=== PATIENT | male | born 1950 | race African-American/Black ===

== ENCOUNTER 2021-07-11 09:51 | Emergency (ER) | payer OTHER ==
--- NOTE | 2021-07-11 10:14 | EDPHYS ---
Physician Documentation [facility] Name: Willi Boudreaux Age: 70 yrs Sex: Male : 1950 Arrival Date: 07/11/2021 Time: 09:55 Bed 12 Private MD: ED Physician Jacobo Taveras HPI: 07/11 10:08 This 70 yrs old Black Male presents to ER via Ambulatory with complaints of swelling. rn 10:08 the patient presents with a swollen area of the scalp. Description: The affected area rn is small, localized, swollen. Onset: The symptoms/episode began/occurred 2.5 month(s) ago. Possible cause(s): unknown. Associated signs and symptoms: Pertinent positives: swelling, Pertinent negatives: discharge, drainage, erythema, fever. Modifying factors: the symptoms are alleviated by nothing, the symptoms are aggravated by touching. Severity of symptoms: At their worst the symptoms were mild, in the emergency department the symptoms are unchanged. The patient has experienced similar episodes in the past. The patient has not recently seen a physician. Patient reports small area of swelling to posterior scalp near neckline. Denies fever. States he first noticed it 2.5 months ago, not significantly growing, not really tender or warm. Has not noticed any drainage. Denies injury. Not getting better so came in because did not know where to go.. Historical: - Allergies: 10:00 No Known Allergies; ll1 - PMHx: 10:00 Diabetes mellitus; lung disease; heart attack ans stroke; ll1 - PSHx: 10:00 lumbar laminectomy, cervicle spine fusion; ll1 - Immunization history:: Client reports receiving the 2nd dose of the Covid vaccine. - Social history:: Smoking status: Patient denies any tobacco usage or history of. - Family history:: not pertinent. - Hospitalizations: : No recent hospitalization is reported. ROS: 10:08 Constitutional: Negative for fever, chills, and weight loss, Skin: Small area of rn swelling posterior scalp Neuro: Negative for headache, weakness, numbness, tingling, and seizure. Exam: 10:08 Constitutional: This is a well developed, well nourished patient who is awake, alert, rn and in no acute distress. Head/Face: Normocephalic, atraumatic. Posterior scalp, midline, there is a subcentimeter palpable mass that feels solid/cystic, mobile, nontender, no erythema, no warmth, without any superficial skin changes. Vital Signs: 09:59 BP 151 / 94; Pulse 81; Resp 18; Temp 97.2; Pulse Ox 90% ; Weight 103.87 kg; Height 5 ll1 ft. 11 in. (180.34 cm); Pain 9/10; 09:59 Body Mass Index 31.94 (103.87 kg, 180.34 cm) ll1 MDM: 09:59 Patient medically screened. rn 10:08 Differential diagnosis: Lymph node, cyst. Data reviewed: vital signs, nurses notes, and rn as a result, I will discharge patient. Counseling: I had a detailed discussion with the patient and/or guardian regarding: the historical points, exam findings, and any diagnostic results supporting the discharge/admit diagnosis, the need for outpatient follow up, to return to the emergency department if symptoms worsen or persist or if there are any questions or concerns that arise at home. Special discussion: I discussed with the patient/guardian in detail that at this point there is no indication for admission to the hospital. It is understood, however, that if the symptoms persist or worsen the patient needs to return immediately for re-evaluation. Based on the history and exam findings, there is no indication for further emergent testing or inpatient evaluation. I discussed with the patient/guardian the need to see the general surgeon for further evaluation of the symptoms. ED course: No indication that this is infectious or abscess. No indication for emergency incision and drainage or imaging. Swelling has been there for 2.5 months, afebrile, nontender. Will direct patient to Dr. Houser for evaluation and possible outpt excision.. Administered Medications: No medications were administered Disposition Summary: 07/11/21 10:13 Discharge Ordered Location: Home rn Problem: an ongoing problem rn Symptoms: are unchanged rn Condition: Stable rn Diagnosis - Localized swelling, mass and lump, head rn Followup: rn - With: Miles Houser MD - When: As needed - Reason: Recheck today's complaints, Re-evaluation by your physician Forms: - Medication Reconciliation Form rn - Thank You Letter rn - Antibiotic patternator - Prescription Opioid Use rn Signatures: Jacobo Taveras MD MD rn Lewis, Lynsay, RN RN ll1
--- NOTE | 2021-07-11 10:14 | ER ---
Nurse's Notes [facility] Name: Willi Bouderaux Age: 70 yrs Sex: Male : 1950 Arrival Date: 07/11/2021 Time: 09:55 Bed 12 Private MD: Diagnosis: Localized swelling, mass and lump, head Presentation: 07/11 09:59 Chief complaint: Patient states: Lump to back of head for 2 months, slowly getting ll1 bigger. No fever or drainage. Coronavirus screen: Vaccine status: Patient reports receiving the 2nd dose of the covid vaccine. Client denies travel out of the [place] in the last 14 days. At this time, the client does not indicate any symptoms associated with coronavirus-19. Ebola Screen: Patient denies travel to an Ebola-affected area in the 21 days before illness onset. Initial Sepsis Screen: Does the patient meet any 2 criteria? No. Patient's initial sepsis screen is negative. Does the patient have a suspected source of infection? Yes: Skin breakdown/wound. Risk Assessment: Do you want to hurt yourself or someone else? Patient reports no desire to harm self or others. Onset of symptoms was May 11, 2021. 09:59 Method Of Arrival: Ambulatory ll1 09:59 Acuity: DAI 4 ll1 Historical: - Allergies: 10:00 No Known Allergies; ll1 - PMHx: 10:00 Diabetes mellitus; lung disease; heart attack ans stroke; ll1 - PSHx: 10:00 lumbar laminectomy, cervicle spine fusion; ll1 - Immunization history:: Client reports receiving the 2nd dose of the Covid vaccine. - Social history:: Smoking status: Patient denies any tobacco usage or history of. - Family history:: not pertinent. - Hospitalizations: : No recent hospitalization is reported. Screenin:14 Abuse screen: Denies threats or abuse. Nutritional screening: No deficits noted. vg1 Tuberculosis screening: No symptoms or risk factors identified. Fall Risk None identified. Assessment: 10:08 General: Appears in no apparent distress. comfortable, Behavior is calm, cooperative. vg1 Pain: Complains of pain in base of the skull Pain currently is 8 out of 10 on a pain scale. Quality of pain is described as aching, Pain began approximately two months ago. Neuro: Level of Consciousness is awake, alert, obeys commands, Oriented to person, place, time, situation. Cardiovascular: Patient's skin is warm and dry. Respiratory: Airway is patent Respiratory effort is even, unlabored. GI: No signs and/or symptoms were reported involving the gastrointestinal system. : No signs and/or symptoms were reported regarding the genitourinary system. EENT: No signs and/or symptoms were reported regarding the EENT system. Derm: Skin is intact, is healthy with good turgor, at base of skull, pt appears to have a hard like substance that is movable. Abscess located on scalp is dime sized. Musculoskeletal: Circulation, motion, and sensation intact. Vital Signs: 09:59 BP 151 / 94; Pulse 81; Resp 18; Temp 97.2; Pulse Ox 90% ; Weight 103.87 kg; Height 5 ll1 ft. 11 in. (180.34 cm); Pain 9/10; 09:59 Body Mass Index 31.94 (103.87 kg, 180.34 cm) ll1 ED Course: 09:55 Patient arrived in ED. as 09:59 Jacobo Taveras MD is Attending Physician. rn 10:00 Triage completed. ll1 10:02 Arm band placed on Patient placed in an exam room, on a stretcher. ll1 10:08 Desiree Mays RN is Primary Nurse. vg1 10:13 Miles Houser MD is Referral Physician. rn 10:14 Patient has correct armband on for positive identification. Bed in low position. Call vg1 light in reach. 10:14 No provider procedures requiring assistance completed. Patient did not have IV access vg1 during this emergency room visit. Administered Medications: No medications were administered Outcome: 10:13 Discharge ordered by . rn 10:14 Discharged to home ambulatory. vg1 10:14 Condition: stable 10:14 Discharge instructions given to patient, Instructed on discharge instructions, follow up and referral plans. Demonstrated understanding of instructions, follow-up care. 10:18 Patient left the ED. vg1 Signatures: Lida Harper as Jacboo Taveras MD MD rn Garcia, Victoria, RN RN vg1 Rosangela Lara RN RN ll1 Corrections: (The following items were deleted from the chart) 10:04 09:59 Acuity: DAI 3 ll1 ll1
[2021-07-11 10:25] VITALS: BP 151/94; TEMP 97.2; O2SAT 90
== END 2021-07-11 10:18 | disposition home or self-care (01) ==
LOC: ER 09:51
DX: R22.0 Localized swelling, mass and lump, head (principal)
CPT/HCPCS: 99281

== ENCOUNTER 2021-11-03 14:56 | Inpatient (IN) | payer OTHER ==
--- OUTSIDE RECORDS SUMMARY | 2021-11-03 14:59 | XMS REPORT | Continuity of Care Document ---
:1950 Author Organization [facility] t Address [address] [place] [address] Care Team Providers Name Role Phone Thiago Layton Attending Clinician Unavailable Anthony Rausch Attending Clinician Unavailable Anthony Rausch Admitting Clinician Unavailable Payers Payer Name Policy Type Policy Number Effective Date Expiration Date S ource Problems This patient has no known problems. Allergies, Adverse Reactions, Alerts Allergy Allergy Status Severity Reaction(s) Onset Inactive Treating Comm ents Source Name Type Date Date Clinician No Known DA Active U [facility] Allergie 10-30 [facility] s 00:00: d 00 [facility] Medications This patient has no known medications. Procedures This patient has no known procedures. Encounters Start End Encounter Admission Attending Care Care Encounter Source Date/Time Date/Time Type Type Clinicians Facility Department ID 2021-10-31 2021-11-01 Inpatient EM JANETH LaytonDENNIS TELE [id number] [facility] 16:03:00 10:24:00 Lisa [facility] 2021-10-30 2021-10-30 Inpatient EM JANETH RauschDENNIS TELE [id number] [facility] 16:12:00 16:11:00 Juma [facility] Results Test Description Test Time Test Comments Results Result Comments Source GLUBED 2021-11-01 14:18:00 Test Item Value Reference Range Interpretation Comme nts GLUBED (test code = GLUBED) 167 mg/dL 70-110 H [id number] 14:17:00 Test Item Value Reference Range Interpretation Comments GLUBED (test code = GLUBED) 117 mg/dL 70-110 H [id number] 07:34:00 Test Item Value Reference Range Interpretation Comments GLUBED (test code = GLUBED) 215 mg/dL 70-110 H CBC W/AUTO [id number] 06:26:00 Test Item Value Reference Range Interpretation Comments WHITE BLOOD CELL (test code = 6.8 K/mm3 4.5-11.0 N WBC) RED BLOOD CELL (test code = 4.61 M/mm3 4.40-5.90 N RBC) HEMOGLOBIN (test code = HGB) 13.1 gm/dL 13.0-17.0 N HEMATOCRIT (test code = HCT) 44.7 % 36.0-48.0 N MEAN CELL VOLUME (test code = 97.0 UM3 80.0-94.0 H MCV) MEAN CELL HGB (test code = MCH) 28.4 UUG 25.5-32.5 N MEAN CELL HGB CONCETRATION 29.3 gm/dL 29.0-35.5 N (test code = MCHC) RED CELL DISTRIBUTION WIDTH 15.7 % 11.5-15.0 H (test code = RDW) RED CELL DISTRIBUTION WIDTH SD 56.0 fL 34.8-50.2 H (test code = RDW-SD) PLATELET COUNT (test code = 172 K/mm3 150-400 N PLT) MEAN PLATELET VOLUME (test code 11.8 fl 7.4-10.4 H = MPV) NEUTROPHIL % (test code = NT%) 74.3 % 49.0-76.0 N IMMATURE GRANULOCYTE % (test 0.3 % 0.0-0.4 N code = IG%) LYMPHOCYTE % (test code = LY%) 14.6 % 23.0-38.0 L MONOCYTE % (test code = MO%) 9.3 % 1.0-10.0 N EOSINOPHIL % (test code = EO%) 1.2 % 1.0-5.0 N BASOPHIL % (test code = BA%) 0.3 % 0.0-1.0 N NUCLEATED RBC % (test code = 0.0 % 0.0-0.1 N NRBC%) NEUTROPHIL # (test code = NT#) 5.0 K/mm3 2.4-6.3 N IMMATURE GRANULOCYTE # (test 0.02 x10 3/uL 0.00-0.07 N code = IG#) LYMPHOCYTE # (test code = LY#) 1.0 K/mm3 1.2-4.0 L MONOCYTE # (test code = MO#) 0.6 K/mm3 0.0-0.6 N EOSINOPHIL # (test code = EO#) 0.1 K/MM3 0.0-0.7 N BASOPHIL # (test code = BA#) 0.0 K/mm3 0.0-0.2 N NUCLEATED RBC # (test code = 0.00 X10 3uL 0.00-0.01 N NRBC#) BASIC METABOLIC [id number] 06:17:00 Test Item Value Reference Range Interpretation Comments SODIUM (test code = NA) 142 mmol/l 134.0-147.0 N POTASSIUM (test code = K) 4.2 mmol/L 3.6-5.2 N CHLORIDE (test code = CL) 104 mmol/l 98.0-107.0 N CARBON DIOXIDE (test code = CO2) 32.9 mmol/l 21.0-33.0 N ANION GAP (test code = GAP) 9.3 0-20 N GLUCOSE (test code = GLU) 174 mg/dl 70.0-110.0 H BLOOD UREA NITROGEN (test code = 12 mg/dl 7.0-18.0 N BUN) CREATININE (test code = CREAT) 1.24 mg/dL 0.60-1.30 N GFR NON BLACK (test code = 61 mL/min 80-90 L GFRNONBLACK) GFR BLACK (test code = GFRBLACK) 74 mL/min 97-109 L CALCIUM (test code = CA) 8.6 mg/dl 8.0-10.5 N [id number] 07:26:00 Test Item Value Reference Range Interpretation Comments TROPONIN-I (test 0.63 NG/ML 0.00-0.06 HH REFERENCE R XAVIER TROPONIN code = TROPI) I HEALTHY PERNELL VIDUALS: <0.06 ng/mL R/O ISCHEMIA: 0.07 - 0.60 ng/mL CUT-OFF R XAVIER FOR AMI: 0.60 - 1. 5 ng/mL [id number] 06:10:00 Test Item Value Reference Range Interpretation Comments GLUBED (test code = GLUBED) 115 mg/dL 70-110 H [id number] 04:17:00 Test Item Value Reference Range Interpretation Comments TROPONIN-I (test 0.59 NG/ML 0.00-0.06 HH REFERENCE R XAVIER TROPONIN code = TROPI) I HEALTHY PERNELL VIDUALS: <0.06 ng/mL R/O ISCHEMIA: 0.07 - 0.60 ng/mL CUT-OFF R XAVIER FOR AMI: 0.60 - 1. 5 ng/mL [id number] 22:52:00 Test Item Value Reference Range Interpretation Comments TROPONIN-I (test 0.43 NG/ML 0.00-0.06 H REFERENCE R XAVIER TROPONIN code = TROPI) I HEALTHY PERNELL VIDUALS: <0.06 ng/mL R/O ISCHEMIA: 0.07 - 0.60 ng/mL CUT-OFF R XAVIER FOR AMI: 0.60 - 1. 5 ng/mL B-TYPE NATRIURETIC [id number] 17:55:00 Test Item Value Reference Range Interpretation Comments B-TYPE NATRIURETIC PEPTIDE (test 670 PG/ML 5-100 H code = BNP) [id number] 17:55:00 Test Item Value Reference Range Interpretation Comments TROPONIN-I (test 0.04 NG/ML 0.00-0.06 N REFERENCE R XAVIER TROPONIN code = TROPI) I HEALTHY PERNELL VIDUALS: <0.06 ng/mL R/O ISCHEMIA: 0.07 - 0.60 ng/mL CUT-OFF R XAVIER FOR AMI: 0.60 - 1. 5 ng/mL BASIC METABOLIC [id number] 17:55:00 Test Item Value Reference Range Interpretation Comments SODIUM (test code = NA) 142 mmol/l 134.0-147.0 N POTASSIUM (test code = K) 3.4 mmol/L 3.6-5.2 L CHLORIDE (test code = CL) 105 mmol/l 98.0-107.0 N CARBON DIOXIDE (test code = CO2) 29.9 mmol/l 21.0-33.0 N ANION GAP (test code = GAP) 10.5 0-20 N GLUCOSE (test code = GLU) 134 mg/dl 70.0-110.0 H BLOOD UREA NITROGEN (test code = 6 mg/dl 7.0-18.0 L BUN) CREATININE (test code = CREAT) 1.03 mg/dL 0.60-1.30 N GFR NON BLACK (test code = 76 mL/min 80-90 L GFRNONBLACK) GFR BLACK (test code = GFRBLACK) 92 mL/min 97-109 L CALCIUM (test code = CA) 8.5 mg/dl 8.0-10.5 N [id number] 17:52:00 Test Item Value Reference Range Interpretation Comments GLUBED (test code = GLUBED) 117 mg/dL 70-110 H COVID 19 Asymptomatic IH [id number] 17:49:00 Test Item Value Reference Range Interpretation Comments COVID 19 NEGATIVE NEGATIVE Negative result s should be Asymptomatic IH AG treated a s presumptive and (test code = ifinconsistent with COVNONPUIAG) clinical signs and symptoms, or ne cessaryfor patient managem ent, should be tested with an alternativemole cular assay. Negative results do not preclude [id number] tion and should not be u sed as the sole basis forp atient management deci sions. Negative result s should beconsidered in the context of a pa tient's recent exposure s,history, presence of cli nical signs and symptoms consistentwith COVID-19. PROTHROMBIN [id number] 17:20:00 Test Item Value Reference Range Interpretation Comments PROTHROMBIN TIME 15.1 SECONDS 9.9-12.8 H PATIENT (test code = PTP) INTERNATIONAL NORMAL 1.3 0.89-1.14 H THE INR IS TO BE USED RATIO (test code = ONLY FOR MONITORING INR) ORAL ANTICOAGULANTTH ERAPY. THE FOLLOWING A RE SUGGESTED RANGE S FROM [facility] COL LEGE OF CHEST PHYSICIANS:PERNELL CATION INR VALUEPROPHYLAXI S OF VENOUS THROMBOS IS (ORTHOPEDIC LEYLA MAIN) 2.0 - 3.0PROP HYLAXIS OF VENOUS THROM BOSIS (OTHER THAN HIG H-RISK SURGERY) 2.0 - 3.0TRE ATMENT OF DEEP VEIN THROMBOSIS OR PULMONARY EMBOL ISM 2.0 - 3.0PREV ENTION OF SYSTEMIC EMB OLISM TISSUE HEART VA LVES 2.0 - 3.0 AC [place] MYOCARDIAL INFA RCTION (TO PREVENT SYSTEMIC EMBOLI SM) 2.0 - 3.0 ACUTE MYOCARDIA L INFARCTION (TO PREVENT RECURRE NT INFARCT) 2.5 - 3.0 VALV ULAR HEART DISEASE 2.0 - 3.0 ATRIAL FIBRILATION 2.0 - 3.0BILEAFLET MECHANICAL VALV E IN AORTIC POSITION 2.0 - 3.0MECHAN ICAL PROSTHETIC VALV ES (HIGH RISK) 2.5 - 3.5PRESEN CE OF LUPUS ANTICOAGU LANT OR ANTIPHOSPHOLIP ID ANTIBODIES 2.5 - 3 .5 Specimen comments: .CBC W/AUTO [id number] 17:09:00 Test Item Value Reference Range Interpretation Comments WHITE BLOOD CELL (test code = 7.7 K/mm3 4.5-11.0 N WBC) RED BLOOD CELL (test code = 4.63 M/mm3 4.40-5.90 N RBC) HEMOGLOBIN (test code = HGB) 12.9 gm/dL 13.0-17.0 L HEMATOCRIT (test code = HCT) 43.4 % 36.0-48.0 N MEAN CELL VOLUME (test code = 93.7 UM3 80.0-94.0 N MCV) MEAN CELL HGB (test code = MCH) 27.9 UUG 25.5-32.5 N MEAN CELL HGB CONCETRATION 29.7 gm/dL 29.0-35.5 N (test code = MCHC) RED CELL DISTRIBUTION WIDTH 15.4 % 11.5-15.0 H (test code = RDW) RED CELL DISTRIBUTION WIDTH SD 53.1 fL 34.8-50.2 H (test code = RDW-SD) PLATELET COUNT (test code = 162 K/mm3 150-400 N PLT) MEAN PLATELET VOLUME (test code 10.7 fl 7.4-10.4 H = MPV) NEUTROPHIL % (test code = NT%) 79.5 % 49.0-76.0 H IMMATURE GRANULOCYTE % (test 0.3 % 0.0-0.4 N code = IG%) LYMPHOCYTE % (test code = LY%) 11.7 % 23.0-38.0 L MONOCYTE % (test code = MO%) 7.2 % 1.0-10.0 N EOSINOPHIL % (test code = EO%) 1.0 % 1.0-5.0 N BASOPHIL % (test code = BA%) 0.3 % 0.0-1.0 N NUCLEATED RBC % (test code = 0.0 % 0.0-0.1 N NRBC%) NEUTROPHIL # (test code = NT#) 6.1 K/mm3 2.4-6.3 N IMMATURE GRANULOCYTE # (test 0.02 x10 3/uL 0.00-0.07 N code = IG#) LYMPHOCYTE # (test code = LY#) 0.9 K/mm3 1.2-4.0 L MONOCYTE # (test code = MO#) 0.6 K/mm3 0.0-0.6 N EOSINOPHIL # (test code = EO#) 0.1 K/MM3 0.0-0.7 N BASOPHIL # (test code = BA#) 0.0 K/mm3 0.0-0.2 N NUCLEATED RBC # (test code = 0.00 X10 3uL 0.00-0.01 N NRBC#) - XR CHEST 1 [id number] 16:43:00 [facility] 1950 Sex: M FAX: Shara Jackman MD [phone] [place]: St: PRE Name: ELLE MERRITT [facility] : 1950 Age[facility]S: 71/[facility] [address] [facility]: [id number] Loc: [place], [place]: [place] [id number] Acct: [id number] Dis Date: Status: PRE ER PHONE #: [phone] Exam Date: 10/30/20211641 FAX #: [phone] Reason: SOB EXAMS: CPT CODE: [id number] XR CHEST 1 V 82025 EXAMINATION: - XR CHEST 1 V. LOCATION:B2. HISTORY: SOB. COMPARISON: None. TECHNIQUE: Single AP view of the chest was obtained. FINDINGS: The heart is enlarged in size. Left AICD device is present. There is mild prominence of the central pulmonary vasculature. No acute osseous abnormality is identified. IMPRESSION: Cardiomegaly with mild central pulmonary congestion. [id number] Reported and signed by: Rupal Gunter M.D. CC: Shara Jackman MD Technologist: JJ GIRALDO Trnscrd Date/Time/By: 10/30/2021 (700) : By: [email or web address] PAGE 1 Sig rosaline Report FAX: Shara Jackman MD [phone] [place]: St: PRE -- Name: ELLE MERRITT [facility] : 1950 Age/S: 71/M [address] [facility] Unit #: [id number] [place]: [place] [id number] Acct: [id number] Dis Date: Status: PRE ER PHONE #: [phone] Date: 10/30/20211641 FAX #: [phone] Reason: SOB EXAMS: CPT CODE: [id number] XR CHEST 1 V [id number] <Continued> Orig Print D/T: S: 10/30/2021 (2566) PAGE 2 Signed Report
[2021-11-03 16:03] LABS: Hematocrit 42.3 % (39.6-49.0); MPV 9.5 fL (7.6-11.3); RBC Red Blood Cell Count 4.71 M/uL (4.33-5.43)
[2021-11-03 16:07] LABS: Protime INR 1.26
[2021-11-03 16:20] LABS: Albumin 3.4 g/dL (3.4-5.0); Bilirubin Direct 0.2 mg/dL (0-0.2); Bilirubin Total 0.4 mg/dL (0.2-1.0); Magnesium 2.3 mg/dL (1.8-2.4); Potassium 3.8 mmol/L (3.5-5.1); Protein, Total 7.7 g/dL (6.4-8.2)
--- NOTE | 2021-11-03 16:23 | RAD REPORT ---
EXAM DESCRIPTION: RAD - Chest Single View - 11/03/2021 4:00 pm CLINICAL HISTORY: CHEST PAIN COMPARISON: None TECHNIQUE: AP portable chest image was obtained 11/03/2021 4:00 pm . FINDINGS: No peripheral mass consolidation. Pacemaker/defibrillator is in place. Trachea is midline. Heart size is prominent. Central vasculature and lung markings are also prominent. No measurable ple ural effusion and no pneumothorax. No acute bony abnormality seen. No acute aortic findings suspected . IMPRESSION: Baseline study showing prominent heart, vasculature and lung markings. Absent any comparison that can establish stability, chest findings suggest failure or volume overload .
--- NOTE | 2021-11-03 19:17 | ER ---
Nurse's Notes [facility] Name: Willi Boudreaux Age: 71 yrs Sex: Male : 1950 Arrival Date: 11/03/2021 Time: 15:04 Bed 16 Private MD: Diagnosis: Chest pain, unspecified Presentation: 11/03 14:54 Chief complaint: EMS states: at about 1400 pt toned out for chest pain; stated had a NE vg1 last week and was discharged from [facility] on . Pt was given Aspirin 81 mg PO x4 and one tab of Nitroglycerin PO x1. Before medication admin pt chest pain was 8/10, after medication admin pt stated pain 0/10. 14:54 Coronavirus screen: Vaccine status: Patient reports receiving the 2nd dose of the covid vg1 vaccine. Client denies travel out of the [place] in the last 14 days. Ebola Screen: Patient negative for fever greater than or equal to 101.5 degrees Fahrenheit, and additional compatible Ebola Virus Disease symptoms. Initial Sepsis Screen: Does the patient meet any 2 criteria? HR > 90 bpm. Does the patient have a suspected source of infection? No. Patient's initial sepsis screen is negative. Risk Assessment: Do you want to hurt yourself or someone else? Patient reports no desire to harm self or others. Onset of symptoms was November 03, 2021. 14:54 Method Of Arrival: EMS: [facility] vg1 14:54 Acuity: DAI 2 vg1 Triage Assessment: 15:00 General: Appears in no apparent distress. comfortable, Behavior is calm, cooperative. vg1 Pain: Denies pain. Complains of pain in chest Pain does not radiate. Pain currently is 0 out of 10 on a pain scale. EENT: No signs and/or symptoms were reported regarding the EENT system. Neuro: Level of Consciousness is awake, alert, obeys commands, Oriented to person, place, time, situation. Cardiovascular: Patient's skin is warm and dry. Rhythm is Chest pain is denied. Respiratory: Airway is patent Respiratory effort is even, unlabored, Respiratory pattern is tachypnea. GI: Patient currently denies nausea, vomiting. : No signs and/or symptoms were reported regarding the genitourinary system. Derm: Skin is intact, is healthy with good turgor. Musculoskeletal: Circulation, motion, and sensation intact. Historical: - Allergies: 15:48 No Known Allergies; vg1 - Home Meds: 15:48 atorvastatin oral [Active]; vg1 17:26 bisoprolol fumarate oral [Active]; glipizide 5 mg Oral tab [Active]; metformin Oral vg1 [Active]; Humulin N Sub-Q [Active]; Lasix Oral [Active]; terazosin oral [Active]; - PMHx: 15:48 diabetes mellitus; vg1 17:26 Myocardial infarction; Hypertensive disorder; vg1 - PSHx: 15:48 lumbar laminectomy, cervicle spine fusion; Pacemaker; vg1 - Immunization history:: Client reports receiving the 2nd dose of the Covid vaccine. - Social history:: Smoking status: Patient reports the use of cigarette tobacco products, cigars. Screenin:51 Abuse screen: Denies threats or abuse. Nutritional screening: No deficits noted. vg1 Tuberculosis screening: No symptoms or risk factors identified. Fall Risk No fall in past 12 months (0 pts). No secondary diagnosis (0 pts). IV access (20 points). Ambulatory Aid- None/Bed Rest/Nurse Assist (0 pts). Gait- Normal/Bed Rest/Wheelchair (0 pts) Mental Status- Oriented to own ability (0 pts). Total Chambers Fall Scale indicates No Risk (0-24 pts). Assessment: 15:00 Reassessment: SEE TRIAGE. vg1 15:00 Pain: Pain began 2 hours ago. vg1 16:58 Reassessment: Patient appears in no apparent distress at this time. No changes from vg1 previously documented assessment. Patient and/or family updated on plan of care and expected duration. Pain level reassessed. Patient is alert, oriented x 3, equal unlabored respirations, skin warm/dry/pink. 17:20 Reassessment: Pt has been advised by provider of NPO until further notice. pt eating at vg1 bedside; educated pt reason of NPO and insisted on eating. 18:10 Reassessment: Patient appears in no apparent distress at this time. No changes from vg1 previously documented assessment. Patient and/or family updated on plan of care and expected duration. Pain level reassessed. Patient is alert, oriented x 3, equal unlabored respirations, skin warm/dry/pink. 19:44 Reassessment: Patient appears in no apparent distress at this time. No changes from ll3 previously documented assessment. Patient and/or family updated on plan of care and expected duration. Pain level reassessed. Patient is alert, oriented x 3, equal unlabored respirations, skin warm/dry/pink. C/O being cold, and hungry, ERP notified, sandwich and Jello provided. 20:21 Reassessment: Patient appears in no apparent distress at this time. No changes from ll3 previously documented assessment. Patient and/or family updated on plan of care and expected duration. Pain level reassessed. Patient is alert, oriented x 3, equal unlabored respirations, skin warm/dry/pink. 21:46 Reassessment: Patient appears in no apparent distress at this time. No changes from ll3 previously documented assessment. Patient and/or family updated on plan of care and expected duration. Pain level reassessed. Patient is alert, oriented x 3, equal unlabored respirations, skin warm/dry/pink. Vital Signs: 14:54 BP 142 / 84; Pulse 86; Resp 22; Temp 98.2(O); Pulse Ox 98% on 3 lpm NC; Weight 108.86 vg1 kg; Height 5 ft. 10 in. (177.80 cm); Pain 0/10; 16:45 BP 152 / 90; Pulse 77; Resp 18; Pulse Ox 92% on 3 lpm NC; vg1 18:15 BP 141 / 82; Pulse 82; Resp 22; Pulse Ox 94% on 4 lpm NC; vg1 19:43 BP 150 / 110; Pulse 84; Resp 18; Pulse Ox 100% on 3 lpm NC; ll3 20:21 BP 158 / 93; Pulse 81; Resp 20; Pulse Ox 97% on 3 lpm NC; ll3 21:47 BP 132 / 76; Pulse 71; Resp 19; Pulse Ox 98% on 3 lpm NC; ll3 14:54 Body Mass Index 34.44 (108.86 kg, 177.80 cm) vg1 ED Course: 15:00 Arm band placed on. vg1 15:04 Patient arrived in ED. mr 15:07 Christiano Guerrero, JODEE is PHCP. pm1 15:07 Ignacio Crawley MD is Attending Physician. pm1 15:09 Desiree Mays, DONALD is Primary Nurse. vg1 15:40 Initial lab(s) drawn, by me, sent to lab. Inserted saline lock: 22 gauge in right vg1 antecubital area, using aseptic technique. Blood collected. 15:47 Triage completed. vg1 15:51 Patient has correct armband on for positive identification. Placed in gown. Bed in low vg1 position. Call light in reach. Side rails up X2. Adult w/ patient. telemetry monitor on. Pulse ox on. NIBP on. 15:51 Oxygen administration via nasal cannula \T\ 3L/min. vg1 16:00 XRAY Chest (1 view) In Process Unspecified. EDMS 17:02 initiated transfer to [facility]. bd 17:10 pt denied due to all [facility] hospitals on transfer closure per Seng Jacinto, spoke with allyn Sneed with [facility] transfer center. 19:16 Jairon Palacios PA is Hospitalizing Provider. pm1 21:47 No provider procedures requiring assistance completed. Patient admitted, IV remains in ll3 place. intact, No redness/swelling at site. Administered Medications: 19:43 Drug: Lovenox (enoxaparin) 1 mg/kg Route: Sub-Q; Site: abdomen; ll3 20:26 Follow up: Response: No adverse reaction ll3 19:43 Drug: amiodarone 400 mg Route: PO; ll3 20:26 Follow up: Response: No adverse reaction ll3 19:43 Drug: carvedilol 6.25 mg Route: PO; ll3 20:25 Follow up: Response: No adverse reaction ll3 Outcome: 19:16 Decision to Hospitalize by Provider. pm1 21:47 Admitted to Med/surg accompanied by nurse, via wheelchair, room 206, with oxygen, with ll3 chart, Report called to DONALD Holland 21:48 Condition: stable ll3 21:48 Discharge instructions given to patient, Instructed on the need for admit. 22:17 Patient left the ED. ll3 Signatures: Dispatcher [employer] EDMS Zenia LechugaaAlana YolandaChristiano, NURSING CLINICAL DIRECTOR NURSING CLINICAL DIRECTOR pm1 Desiree Mays, RN RN vg1 Jessica Werner RN RN ll3 Corrections: (The following items were deleted from the chart) 17:30 15:48 Home Meds: 'blood pressure'-unknown; vg1 vg1 17:30 15:48 Home Meds: Epi Pen; vg1 vg1 : 15:48 PMHx: heart attack ans stroke; vg1 vg1 17: 15:48 PMHx: lung disease; vg1 vg1
--- NOTE | 2021-11-03 19:18 | EDPHYS ---
Physician Documentation [facility] Name: Willi Boudreaux Age: 71 yrs Sex: Male : 1950 Arrival Date: 11/03/2021 Time: 15:04 Bed 16 Private MD: ED Physician Ignacio Crawley HPI: 11/03 15:20 This 71 yrs old Black Male presents to ER via Unassigned with complaints of Chest Pain. pm1 15:20 The patient or guardian reports chest pain that is located primarily in the mid-sternal pm1 area. Onset: today, at 14:00. The pain does not radiate. Associated signs and symptoms: Pertinent positives: diaphoresis, dizziness, defibrillator fired. The chest pain is described as a pressure, sharp. Duration: The patient or guardian reports a single episode. Modifying factors: The symptoms are alleviated by NTG, X1. Severity of pain: in the emergency department the pain has resolved after treatment by EMS personnel. EMS care prior to arrival includes: aspirin, nitroglycerin, x 1, with resolution of the chest pain. The patient has been recently seen by a physician: Discharged from [facility] on post [place]. Possibly 2 stents placed?. Historical: - Allergies: 15:48 No Known Allergies; vg1 - Home Meds: 15:48 atorvastatin oral [Active]; vg1 17:26 bisoprolol fumarate oral [Active]; glipizide 5 mg Oral tab [Active]; metformin Oral vg1 [Active]; Humulin N Sub-Q [Active]; Lasix Oral [Active]; terazosin oral [Active]; - PMHx: 15:48 diabetes mellitus; vg1 17:26 Myocardial infarction; Hypertensive disorder; vg1 - PSHx: 15:48 lumbar laminectomy, cervicle spine fusion; Pacemaker; vg1 - Immunization history:: Client reports receiving the 2nd dose of the Covid vaccine. - Social history:: Smoking status: Patient reports the use of cigarette tobacco products, cigars. ROS: 15:20 Constitutional: Negative for fever, chills, and weight loss. pm1 15:20 Respiratory: Negative for shortness of breath, cough, wheezing, and pleuritic chest pain, Abdomen/GI: Negative for abdominal pain, nausea, vomiting, diarrhea, and constipation, Back: Negative for injury and pain, MS/Extremity: Negative for injury and deformity, Skin: Negative for injury, rash, and discoloration. 15:20 Cardiovascular: Positive for chest pain. 15:20 Neuro: Positive for dizziness, near syncope, Negative for headache. 15:20 All other systems are negative. Exam: 15:20 Constitutional: This is a well developed, well nourished patient who is awake, alert, pm1 and in no acute distress. Head/Face: Normocephalic, atraumatic. 15:20 Back: No spinal tenderness. No costovertebral tenderness. Full range of motion. Skin: Warm, dry with normal turgor. Normal color with no rashes, no lesions, and no evidence of cellulitis. MS/ Extremity: Pulses equal, no cyanosis. Neurovascular intact. Full, normal range of motion. 15:20 Eyes: Exam is negative for acute changes, Periorbital structures: appear normal, Extraocular movements: no acute changes. 15:20 ENT: Exam is negative for acute changes, Mouth: Lips: normal, moist, Oral mucosa: normal, pink and intact, moist. 15:20 Cardiovascular: Exam negative for acute changes, Rate: normal, Rhythm: regular, Pulses: Heart sounds: normal. 15:20 Respiratory: Exam negative for acute changes, respiratory distress, shortness of breath, Breath sounds: are clear throughout. 15:20 Neuro: Exam negative for acute changes, Orientation: is normal, Mentation: is normal, Motor: is normal, moves all fours. Vital Signs: 14:54 BP 142 / 84; Pulse 86; Resp 22; Temp 98.2(O); Pulse Ox 98% on 3 lpm NC; Weight 108.86 vg1 kg; Height 5 ft. 10 in. (177.80 cm); Pain 0/10; 16:45 BP 152 / 90; Pulse 77; Resp 18; Pulse Ox 92% on 3 lpm NC; vg1 18:15 BP 141 / 82; Pulse 82; Resp 22; Pulse Ox 94% on 4 lpm NC; vg1 19:43 BP 150 / 110; Pulse 84; Resp 18; Pulse Ox 100% on 3 lpm NC; ll3 20:21 BP 158 / 93; Pulse 81; Resp 20; Pulse Ox 97% on 3 lpm NC; ll3 21:47 BP 132 / 76; Pulse 71; Resp 19; Pulse Ox 98% on 3 lpm NC; ll3 14:54 Body Mass Index 34.44 (108.86 kg, 177.80 cm) vg1 MDM: 15:08 Patient medically screened. pm1 18:32 Data reviewed: vital signs. Data interpreted: Pulse oximetry: on 3L(s) per nasal pm1 canula, is 94 %. Interpretation: acceptable. 18:32 Counseling: I had a detailed discussion with the patient and/or guardian regarding: the pm1 historical points, exam findings, and any diagnostic results supporting the discharge/admit diagnosis, lab results, radiology results, the need for further work-up and treatment in the hospital. 19:10 Physician consultation: Alon Aaron MD regarding consult, patient's condition, would pm1 like further tests performed, echocardiogram, in AM, would like medications started, Lovenox, Amiodarone 400 mg PO BID, Entrestro , Carvediol. 11/03 15:08 Order name: Basic Metabolic Panel; Complete Time: 16:29 pm11/03 15:08 Order name: CBC with Diff; Complete Time: 16:29 pm11/03 15:08 Order name: LFT's; Complete Time: 16:29 pm11/03 15:08 Order name: Magnesium; Complete Time: 16:29 pm11/03 15:08 Order name: NT PRO-BNP; Complete Time: 16:29 pm11/03 15:08 Order name: PT-INR; Complete Time: 16:29 pm11/03 15:08 Order name: Troponin HS; Complete Time: 16:29 pm11/03 15:08 Order name: XRAY Chest (1 view); Complete Time: 16:29 pm11/03 15:08 Order name: EKG; Complete Time: 15:09 pm11/03 15:10 Order name: COVID-19 SARS RT PCR (Document "Date of Onset" if Symptomatic); Complete pm1 Time: 18:11/03 19:27 Order name: CONS Physician Consult [facility] 11/03 15:08 Order name: Cardiac monitoring; Complete Time: 15:44 pm11/03 15:08 Order name: EKG - Nurse/Tech; Complete Time: 15:44 pm11/03 15:08 Order name: IV Saline Lock; Complete Time: 15:44 pm1 11/03 15:08 Order name: Labs collected and sent; Complete Time: 15:44 pm1 11/03 15:08 Order name: O2 Per Protocol; Complete Time: 15:44 pm1 11/03 15:08 Order name: O2 Sat Monitoring; Complete Time: 15:44 pm1 Administered Medications: 19:43 Drug: Lovenox (enoxaparin) 1 mg/kg Route: Sub-Q; Site: abdomen; ll3 20:26 Follow up: Response: No adverse reaction ll3 19:43 Drug: amiodarone 400 mg Route: PO; ll3 20:26 Follow up: Response: No adverse reaction ll3 19:43 Drug: carvedilol 6.25 mg Route: PO; ll3 20:25 Follow up: Response: No adverse reaction ll3 Disposition: 11/04 08:57 Co-signature as Attending Physician, Ignacio Crawley MD I agree with the assessment and kdr plan of care. Disposition Summary: 11/03/21 19:16 Hospitalization Ordered Hospitalization Status: Inpatient Admission pm1 Provider: Jairon Palacios pm1 Location: Telemetry/MedSurg (Inpatient) pm1 Condition: Stable pm1 Problem: new pm1 Symptoms: have improved pm1 Bed/Room Type: Standard pm1 Room Assignment: 206(11/03/21 20:02) cg Diagnosis - Chest pain, unspecified pm1 Forms: - Medication Reconciliation Form pm1 - SBAR form pm1 Signatures: Dispatcher [employer] Ignacio Singletary MD MD kdr Garcia, Cindy, RN RN cg Christiano Guerrero NP JOURNALISM PROFESSOR pm1 Desiree Mays RN RN vg1 Jessica Werner RN RN ll3 Corrections: (The following items were deleted from the chart) 11/03 17:30 15:48 Home Meds: 'blood pressure'-unknown; vg1 vg1 17:30 15:48 Home Meds: Epi Pen; vg1 vg1 17:30 15:48 PMHx: heart attack ans stroke; vg1 vg1 17:30 15:48 PMHx: lung disease; vg1 vg1 20:02 19:16 pm1 cg
[2021-11-03] MEDS ORDERED: carvediloL 6.25 MG TAB ONE (19:36)
[2021-11-03] MEDS ORDERED: AMIODARONE HCL 200 MG TAB ONE (19:37)
[2021-11-03] MEDS ORDERED: ENOXAPARIN 100 MG/ML SYR SQ ONE (19:37)
--- NOTE | 2021-11-03 20:54 | P.HP ---
Certification for Inpatient Patient admitted to: Inpatient With expected LOS: <2 Midnights Patient will require the following post-hospital care: None Practitioner: I am a practitioner with admitting privileges, knowledge of patient current condition, hospital course, and medical plan of care. Services: Services provided to patient in accordance with Admission requirements found in Title 42 Section 412.3 of the Code of Federal Regulations Patient History Date of Service: 11/03/21 Reason for admission: chest pain History of Present Illness: Mr. Boudreaux is a 71 yo M with CAD, HTN, HLD, T2DM who presents with 9/10 left sided sternal chest pressure beginning today at 2pm when he sat up from his bed. He says he felt diaphoretic and dizzy. He felt his defibrillator fire twice so he called EMS. He says the chest pain was relieved after receiving nitroglycerin and aspirin. This recently occurred one week ago, and he was admitted to [facility] for a NSTEMI. He was in the hospital for four days, underwent a heart catheterization, and was discharged with medical management because he had to attend his granddaughter's on Wednesday. He was told he would be readmitted at [facility] for stent placement but he had difficulty contacting the brass and wind instrument repairer. He also reports shortness of breath and edema in his legs. He says he ran out of his fluid pill two weeks ago. BNP 3263 troponin 234. CXR IMPRESSION: Baseline study showing prominent heart, vasculature and lung markings. Absent any comparison that can establish stability, chest findings suggest failure or volume overload. - Past Medical/Surgical History -: HTN -: HLD -: DM -: CAD -: pacemaker/defibrillator -: cardiac stent x2 -: lumbar laminectomy -: cervical spine surgery - Family History Family History: Reviewed- Non-Contributory - Social History Smoking Status: Former smoker Alcohol use: No CD- Drugs: No Caffeine use: Yes Place of Residence: Home Review of Systems 10-point ROS is otherwise unremarkable General: Unremarkable Eyes: Unremarkable ENT: Unremarkable Respiratory: Shortness of Breath, SOB with Excertion Cardiovascular: Chest Pain, Edema, Light Headedness Gastrointestinal: Unremarkable Genitourinary: Unremarkable Musculoskeletal: Unremarkable Integumentary: Unremarkable Neurological: Unremarkable Lymphatics: Unremarkable Physical Examination - Physical Exam General: Alert, In no apparent distress, Obese HEENT: Atraumatic, PERRLA, Mucous membr. moist/pink, EOMI, Sclerae nonicteric Neck: Supple, 2+ carotid pulse no bruit, No LAD, Without JVD or thyroid abnormality Respiratory: Diminished, Crackles/rales Cardiovascular: Regular rate/rhythm, Normal S1 S2, Edema Gastrointestinal: Normal bowel sounds, No tenderness Musculoskeletal: No tenderness Integumentary: No rashes Neurological: Normal speech, Normal strength at 5/5 x4 extr, Normal tone, Normal affect Lymphatics: No axilla or inguinal lymphadenopathy - Studies Laboratory Data (last 24 hrs) 11/03/21 15:40: PT 14.5 H, INR 1.26 11/03/21 15:40: WBC 8.00, Hgb 13.2 L, Hct 42.3, Plt Count 180 11/03/21 15:40: Sodium 141, Potassium 3.8, BUN 9, Creatinine 1.05, Glucose 187 H, Magnesium 2.3, Total Bilirubin 0.4, AST 12 L, ALT 17, Alkaline Phosphatase 138 H Assessment and Plan - Problems (Diagnosis) (1) HTN (hypertension) Current Visit: Yes Status: Chronic Qualifiers: Hypertension type: primary hypertension Qualified Code(s): I10 - Essential (primary) hypertension (2) HLD (hyperlipidemia) Current Visit: Yes Status: Chronic Qualifiers: Hyperlipidemia type: unspecified Qualified Code(s): E78.5 - Hyperlipidemia, unspecified (3) T2DM (type 2 diabetes mellitus) Current Visit: Yes Status: Chronic Qualifiers: Diabetes mellitus intermediate insulin use: with intermediate accountant use Diabetes mellitus complication status: without complication Qualified Code(s): E11.9 - Type 2 diabetes mellitus without complications; Z79.4 - long term care administrator (current) use of insulin (4) CAD (coronary artery disease) Current Visit: Yes Status: Chronic Qualifiers: Coronary Disease-Associated Artery/Lesion type: zuni artery [place] vs. transplanted heart: zuni heart Associated angina: unspecified whether angina present Qualified Code(s): I25.10 - Atherosclerotic heart disease of zuni coronary artery without angina pectoris (5) NSTEMI (non-ST elevated myocardial infarction) Current Visit: Yes Status: Acute (6) Defibrillator discharge Current Visit: Yes Status: Acute - Plan cardiology consulted on telemetry, trend troponins, repeat EKG continue full dose lovenox continue amiodarone, entresto, carvedilol and lasix daily aspirin and statin, morphine and nitroglycerin PRN for chest pain continue O2 as needed, daily weights, fluid restrict, low sodium diet ECHO pending lipid and thyroid levels pending A1c pending, sliding scale insulin reconcile and continue home medications Discharge Plan: Home Plan to discharge in: 48 Hours - Advance Directives Does patient have a Living Will: No Does patient have a Durable POA for Healthcare: No - Code Status/Comfort Care Code Status Assessed: Yes (full code ) Critical Care: No Time Spent Managing Pts Care (In Minutes): 70
[2021-11-03] MEDS ORDERED: NITROGLYCERIN 0.4 MG/TAB SL PRN (21:56)
[2021-11-03] MEDS ORDERED: MORPHINE 2 MG/ML SYR IV PRN (21:56)
[2021-11-03] MEDS ORDERED: ONDANSETRON 4 MG/2 ML VIAL IV PRN (21:56)
[2021-11-03] MEDS ORDERED: ACETAMINOPHEN 500 MG TAB PO PRN (21:56)
[2021-11-03] MEDS ORDERED: IPRATROPIUM BROM 0.5MG/2.5ML NEB PRN (21:56)
[2021-11-03] MEDS ORDERED: ALBUTEROL 2.5 MG/3 ML NEB SOL NEB PRN (21:56)
[2021-11-03] MEDS ORDERED: HYDRALAZINE HCL 20 MG/ML VIAL IV PRN (21:56)
[2021-11-03 22:58] VITALS: BMI 34.0
[2021-11-03] MEDS: INSULIN -REGULAR HUMAN 50 UNIT/0.5 ML ML SQ SCH (23:41)
[2021-11-03] MEDS: SACUBITRIL/VALSARTAN 24/26 MG TAB PO SCH (23:41)
[2021-11-03] MEDS: ATORVASTATIN 40 MG TAB PO SCH (23:42)
[2021-11-03] MEDS: FUROSEMIDE 40 MG/4 ML VIAL IV SCH (23:42)
[2021-11-04 04:45] LABS: Absolute Lymphocytes (CBC) 1.2 K/uL (0.7-4.9); Hematocrit 41.5 % (39.6-49.0); Lymphocytes % 18.2 % (15.3-44.8); MPV 9.2 fL (7.6-11.3); RBC Red Blood Cell Count 4.63 M/uL (4.33-5.43)
[2021-11-04 05:07] LABS: Albumin 3.1 g/dL (3.4-5.0); Bilirubin Total 0.5 mg/dL (0.2-1.0); Magnesium 2.3 mg/dL (1.8-2.4); Phosphorus 3.3 mg/dL (2.5-4.9); Potassium 3.6 mmol/L (3.5-5.1); Protein, Total 7.1 g/dL (6.4-8.2); Thyroid Stimulating Hormone 2.33 uIU/mL (0.360-3.740)
[2021-11-04] MEDS: INSULIN -REGULAR HUMAN 50 UNIT/0.5 ML ML SQ SCH ×4 (07:30→21:23)
--- NOTE | 2021-11-04 08:25 | EKG ---
Test Date: 2021-11-03 Test Time: 15:19:43 Captain'S Assistant: RAFAEL MEASUREMENT RESULTS: Intervals: Rate: 88 MI: 106 QRSD: 188 QT: 470 QTc: 568 Mcdonough: P: 52 MI: 106 QRS: 216 T: -45 INTERPRETIVE STATEMENTS: Electronic ventricular pacemaker No previous ECG available for comparison Electronically Signed On 11-04-21 08:22:27 INFORMATION SECURITY ASSOCIATE by Alon Aaron
[2021-11-04] MEDS: FUROSEMIDE 40 MG/4 ML VIAL IV SCH ×2 (08:57→17:46)
[2021-11-04] MEDS: SACUBITRIL/VALSARTAN 24/26 MG TAB PO SCH ×2 (08:57→21:00)
[2021-11-04] MEDS: carvediloL 6.25 MG TAB PO SCH ×2 (08:58→21:00)
[2021-11-04] MEDS: AMIODARONE HCL 200 MG TAB PO SCH ×2 (08:58→21:22)
[2021-11-04] MEDS: ASPIRIN EC 81 MG TAB PO SCH (08:59)
[2021-11-04] MEDS ORDERED: POTASSIUM CL SA 10 MEQ TAB PO ONE (09:00)
[2021-11-04] MEDS: Enoxaparin 120 MG/0.8 ML SYR SQ SCH ×2 (09:03→21:11)
--- NOTE | 2021-11-04 10:47 | CON ---
Date of Consultation: 11/04/2021 Reason For Consultation: Admitted to Dr. Mercado on 11/03/2021 with non-STEMI and congestive heart fa ilure. History Of Present Illness: Mr. Boudreaux is a 71-year-old black male, who just left the hospital at [facility]. He was under the care of Dr. Layton, Dr. Rausch, Dr. Martínez and Dr. Josiah Jcakman for CHF and CAD and apparently underwent a catheterization and they told him he may need an angioplasty and stent of the complete total occlusion of his circumflex. Records are unavailable in details to me. I do not have the catheterization report. He came into the emergency room complaini ng of chest pain. He also had some shortness of breath, diaphoresis, dizziness. He has a defibrilla tor that actually shocked him for his chest pain. No details again as far as his past medical histor y is concerned. Allergies: NONE. Review of Systems: Negative. Social History: Negative. Family History: Negative. Medications: Include Lipitor, Bystolic, glipizide, metformin, Humulin, and terazosin. Past Medical History: Includes CAD, CHF, status post defibrillator, diabetes, hypertension, pacemake r. Physical Examination: Vital Signs: When I saw him, his vital signs were stable. He was afebrile. HEENT: Negative. Neck: Supple without any lymphadenopathy, JVD, thyromegaly, or bruit. Chest: Revealed some rales both bases. Cardiac: Revealed a regular rhythm and rate without any murmurs, gallops, or rubs. Abdomen: Benign and obese, but no acute finding. Extremities: Revealed 1+ edema. Skin: Dry and intact. Neurologic: He was nonfocal. Pulses were present distally bilaterally. Diagnostic Data: His creatinine was normal at 1.05. Hemoglobin was 13. His troponin high sensitivi ty was 234. Glucose was 223. Lipid profile was normal. Chest x-ray showed increased vascular crow ng. EKG showed paced rhythm. Impression And Plan: 1.Chest pain followed by AICD shock, probably secondary to ventricular tachycardia. The patient nee ds to be on amiodarone 400 b.i.d. We will need to try to get the defibrillator investigated to let u s know which kind it is. 2.Congestive heart failure. The patient needs to be on aspirin and Lipitor. He is already on Loven ox. He needs to be on Entresto, carvedilol and Lasix. Echocardiogram is pending. 3.Coronary artery disease. Details are unknown. We will await the CD from [facility] before making further decisions. His other problems including diabetes and dyslipidemia seem to be f airly well controlled. I will continue to follow him along. MICHELLE/[place] Voice ID: [id number] Report ID: [id number]
--- NOTE | 2021-11-04 14:12 | P.PN ---
Subjective Date of Service: 11/04/21 Chief Complaint: chest pain Patient denies any chest pain at the moment. He denies any complaints. He was asking for an extra tray for breakfast. Physical Examination - Vital Signs Temperature: 97.8 F Blood Pressure: 120/61 Pulse: 62 Respirations: 23 Pulse Ox (%): 91 - Physical Exam General: Alert, In no apparent distress, Oriented x3 HEENT: Mucous membr. moist/pink Neck: Supple, JVD not distended Respiratory: Clear to auscultation bilaterally, Normal air movement Cardiovascular: No edema, Regular rate/rhythm, Normal S1 S2 Gastrointestinal: Soft and benign, Non-distended Musculoskeletal: No swelling, No tenderness Integumentary: No rashes, No cyanosis Neurological: Normal speech, Normal strength at 5/5 x4 extr - Studies Laboratory Data (last 24 hrs) 11/03/21 15:40: PT 14.5 H, INR 1.26 11/03/21 15:40: WBC 8.00, Hgb 13.2 L, Hct 42.3, Plt Count 180 11/03/21 15:40: Sodium 141, Potassium 3.8, BUN 9, Creatinine 1.05, Glucose 187 H, Magnesium 2.3, Total Bilirubin 0.4, AST 12 L, ALT 17, Alkaline Phosphatase 138 H Assessment And Plan - Current Problems (Diagnosis) (1) Defibrillator discharge Current Visit: Yes Status: Acute (2) NSTEMI (non-ST elevated myocardial infarction) Current Visit: Yes Status: Acute (3) CAD (coronary artery disease) Current Visit: Yes Status: Chronic Qualifiers: Coronary Disease-Associated Artery/Lesion type: [place] artery [place] vs. transplanted heart: [place] heart Associated angina: unspecified whether angina present Qualified Code(s): I25.10 - Atherosclerotic heart disease of [place] coronary artery without angina pectoris (4) HLD (hyperlipidemia) Current Visit: Yes Status: Chronic Qualifiers: Hyperlipidemia type: unspecified Qualified Code(s): E78.5 - Hyperlipidemia, unspecified (5) HTN (hypertension) Current Visit: Yes Status: Chronic Qualifiers: Hypertension type: primary hypertension Qualified Code(s): I10 - Essential (primary) hypertension (6) T2DM (type 2 diabetes mellitus) Current Visit: Yes Status: Chronic Qualifiers: Diabetes mellitus longterm insulin use: with technician terminal and repeater use Diabetes mellitus complication status: without complication Qualified Code(s): E11.9 - Type 2 diabetes mellitus without complications; Z79.4 - longterm (current) use of insulin - Plan Patient currently with no new complaint. Case discussed with cardiology-Dr. Aaron. He suspect an episode of V-tach/ V- fib causing the defibrillator discharge and therefore recommended oral amiodarone. Patient started on amiodarone 400 mg twice daily. Troponin trended flat. AICD to be interrogated. Continue anticoagulation Patient with significant coronary artery disease with multiple vessel occlusions. He was supposed to be evaluated for stent placement in [facility]. Dr. Aaron recommended outpatient follow-up in office with Dr. Antonio to evaluate his images for decision on stent placement. Continue Entresto, aspirin, beta-lisa and Lipitor. Insulin sliding scale for glucose management. Glipizide and Metformin on hold. Possible discharge in a.m.
[2021-11-04 15:04] LABS: Magnesium 2.1 mg/dL (1.8-2.4); Phosphorus 3.1 mg/dL (2.5-4.9)
--- NOTE | 2021-11-04 16:53 | EKG ---
Test Date: 2021-11-04 Test Time: 08:36:54 Die Sizer: MARIBEL MEASUREMENT RESULTS: Intervals: Rate: 72 WV: 146 QRSD: 134 QT: 460 QTc: 503 [place]: P: 15 WV: 146 QRS: 198 T: -25 INTERPRETIVE STATEMENTS: Electronic ventricular pacemaker Compared to ECG 11/03/2021 15:19:43 No significant changes Electronically Signed On 11-04-21 16:53:17 [employer] by Alon Aaron
[2021-11-04] MEDS: ATORVASTATIN 40 MG TAB PO SCH (21:12)
[2021-11-05 00:24] VITALS: O2SAT 91
[2021-11-05 05:01] LABS: Absolute Lymphocytes (CBC) 1.5 K/uL (0.7-4.9); Hematocrit 46.7 % (39.6-49.0); MPV 9.3 fL (7.6-11.3); RBC Red Blood Cell Count 5.21 M/uL (4.33-5.43)
[2021-11-05] MEDS: INSULIN -REGULAR HUMAN 50 UNIT/0.5 ML ML SQ SCH (07:30)
[2021-11-05 08:05] VITALS: BP 136/77; TEMP 97
--- NOTE | 2021-11-05 08:39 | ECHO ---
HEIGHT: 5 ft 10 in WEIGHT: 237 lb 6.4 oz DATE OF STUDY: 11/04/[address]: Jairon Palacios 2-DIMENSIONAL: YES M.MODE: YES DOPPLER: YES COLOR FLOW: YES TDS: PORTABLE: DEFINITY: BUBBLE STUDY: DIAGNOSIS: VOLUME OVERLOAD CARDIAC HISTORY: CATHERIZATION: NO SURGERY: NO PROSTHETIC VALVE: NO PACEMAKER: YES MEASUREMENTS (cm) DIASTOLIC (NORMALS) SYSTOLIC (NORMALS) IVSd 1.5 (0.6-1.2) LA Diam 4.2 (1.9-4.0) LVEF 43% LVIDd 6.2 (3.5-5.7) LVIDs 4.8 (2.0-3.5) %FS 22% LVPWd 1.2 (0.6-1.2) Ao Diam 3.1 (2.0-3.7) 2 DIMENSIONAL ASSESSMENT: RIGHT ATRIUM: NORMAL LEFT ATRIUM: DILATED RIGHT VENTRICLE: NORMAL LEFT VENTRICLE: DILATED TRICUSPID VALVE: NORMAL MITRAL VALVE: NORMAL PULMONIC VALVE: NORMAL AORTIC VALVE: NORMAL PERICARDIAL EFFUSION: NONE AORTIC ROOT: NORMAL LEFT VENTRICULAR WALL MOTION: MODERATE GLOBAL HYPOKINESIS. DOPPLER/COLOR FLOW: MILD MITRAL AND TRICUSPID REGURGITATION. COMMENTS: DILATED CARDIOMYOPATHY. EJECTION FRACTION 43%. MODERATE GLOBAL HYPOKINESIS. LEFT VENTRICULAR DILATION. LEFT ATRIAL ENLARGEMENT. MILD MITRAL AND TRICUSPID REGURGITATION. TECHNOLOGIST: CARLOS ENRIQUE FRAGA
[2021-11-05] MEDS: FUROSEMIDE 40 MG/4 ML VIAL IV SCH (08:47)
[2021-11-05] MEDS: AMIODARONE HCL 200 MG TAB PO SCH (08:48)
[2021-11-05] MEDS: SACUBITRIL/VALSARTAN 24/26 MG TAB PO SCH (08:48)
[2021-11-05] MEDS: ASPIRIN EC 81 MG TAB PO SCH (08:49)
[2021-11-05] MEDS: carvediloL 6.25 MG TAB PO SCH (08:50)
[2021-11-05] MEDS: Enoxaparin 120 MG/0.8 ML SYR SQ SCH (08:50)
== END 2021-11-05 09:50 | disposition home or self-care (01) | DRG 282 ==
LOC: ER 14:56 → ERHOLD 20:08 → 2ND 20:24
PROVIDERS: ADMIT Internal Medicine; ATTEND Internal Medicine
DX: I22.2 Subsequent non-ST elevation (NSTEMI) myocardial infarction (principal); I21.9 Acute myocardial infarction, unspecified; E11.9 Type 2 diabetes mellitus without complications; E78.5 Hyperlipidemia, unspecified; I10 Essential (primary) hypertension; I25.10 Atherosclerotic heart disease of native coronary artery without angina pectoris; F17.210 Nicotine dependence, cigarettes, uncomplicated; I25.2 Old myocardial infarction; Z79.84 Long term (current) use of oral hypoglycemic drugs; Z79.4 Long term (current) use of insulin; Z79.899 Other long term (current) drug therapy; Z95.0 Presence of cardiac pacemaker; Z95.5 Presence of coronary angioplasty implant and graft; Z20.822 Contact with and (suspected) exposure to COVID-19
CPT/HCPCS: 36415; 71045; 80048; 80053; 80061; 80076; 82947; 83036; 83735; 83880; 84100; 84439; 84443; 84484; 85025; 85610; 93005; 93306; 94760; 96372; 99285; J1650; J1940; U0003

== ENCOUNTER 2022-03-06 22:52 | Inpatient (IN) | payer OTHER ==
--- OUTSIDE RECORDS SUMMARY | 2022-03-06 22:55 | XMS REPORT | Continuity of Care Document ---
:1950 Author Organization [facility] t Address [address] [place] [address] [address]. Gaona [address] [place] [address] Care Team Providers Name Role Phone Marisela Attending Clinician Unavailable Thiago Layton Attending Clinician Unavailable Anthony Rausch Attending Clinician Unavailable Physician, Primary or Family Admitting Clinician Unavailzunilda Rausch I Admitting Clinician Unavailable Payers Payer Name Policy Type Policy Number Effective Date Expiration Date S ource Problems This patient has no known problems. Allergies, Adverse Reactions, Alerts Allergy Allergy Status Severity Reaction(s) Onset Inactive Treating Comm ents Source Name Type Date Date Clinician No Known DA Active U [facility] 3-15 Clear s 00:00: [address] No Known DA Active U 0 [facility] Allergie 1-20 Clear s 00:00: [address] Medications This patient has no known medications. Procedures Procedure Date / Time Performed Performing Clinician Chintan velasco [id number] 2021-10-31 00:00:00 [facility] [id number] 2021-10-31 00:00:00 [facility] [id number] 2021-10-30 00:00:00 [facility] Encounters Start End Encounter Admission Attending Care Care Encounter Source Date/Time Date/Time Type Type Clinicians Facility Department ID 2021-12-23 Inpatient Marisela, JANETHCL OUTD [id number] [facility] 09:30:00 Jorge [facility] 2021-11-24 Inpatient Marisela, JANETHCL OUTD [id number] [facility] 09:30:00 Jorge [facility] 2021-12-24 2021-12-24 Outpatient MARIAM Ann [facility] [id number] [facility] 05:20:00 05:20:00 Jorge [address] [facility] 2021-12-24 2021-12-24 Outpatient MARIAM AnnCL [id number] [facility] 05:20:00 05:20:00 Jorge 67 [facility] 2021-11-26 2021-11-26 Outpatient MARAIM Ann [facility] [id number] [facility] 05:19:00 05:19:00 Jorge [facility] 2021-11-26 2021-11-26 Outpatient MARIAM Ann [facility] [id number] [facility] 05:19:00 05:19:00 Jorge 76 [facility] 2021-10-31 2021-11-01 Inpatient EM JANETH LaytonMN TELE [id number] [facility] 16:03:00 10:24:00 Lisa [facility] 2021-10-31 2021-11-01 Inpatient EM JANETH LaytonMN TELE [id number] [facility] 16:03:00 10:24:00 Lisa 16 [facility] 2021-10-30 2021-10-30 Inpatient EM JANETH RauschMN TELE [id number] [facility] 16:12:00 16:11:00 Juma [facility] Results Test Description Test Time Test Comments Results Result Comments Source BASIC METABOLIC PANEL 2021-12-24 16:17:00 Test Item Value Reference Range Interpretation Comme nts SODIUM (test code = NA) 144 mEq/L 134-147 N POTASSIUM (test code = K) 3.3 mEq/L 3.4-5.0 L CHLORIDE (test code = CL) 106 mEq/L 100-108 N CARBON DIOXIDE (test code = CO2) 33 mEq/l 21-33 ANION GAP (test code = GAP) 8 0-20 N GLUCOSE (test code = GLU) 199 mg/dL 70-110 H BLOOD UREA NITROGEN (test code = 12 mg/dL 7-18 N BUN) GLOMERULAR FILTRATION RATE (test 72.6 80-90 L Units of measure = ml/min/1.73 code = GFR) m2 CREATININE (test code = CREAT) 1.2 mg/dL 0.6-1.3 N CALCIUM (test code = CA) 8.7 mg/dL 8.0-10.5 N CBC W/AUTO [id number] 16:03:00 Test Item Value Reference Range Interpretation Comments WHITE BLOOD CELL (test code = 9.2 x10 3/uL 4.5-11.0 N WBC) RED BLOOD CELL (test code = 5.38 x10 6/uL 4.00-5.60 N RBC) HEMOGLOBIN (test code = HGB) 14.4 g/dL 12.5-16.9 N HEMATOCRIT (test code = HCT) 49.0 % 37.5-50.7 N MEAN CELL VOLUME (test code = 91.1 fL 81.0-99.0 N MCV) MEAN CELL HGB (test code = MCH) 26.8 pg 27.0-33.0 L MEAN CELL HGB CONCETRATION 29.4 g/dL 33.0-37.0 L (test code = MCHC) RED CELL DISTRIBUTION WIDTH CV 16.6 % 11.5-14.5 H (test code = RDW) RED CELL DISTRIBUTION WIDTH SD 55.6 fL 37.0-54.0 H (test code = RDW-SD) PLATELET COUNT (test code = 240 x10 3/uL 150-400 N PLT) MEAN PLATELET VOLUME (test code 10.9 fL 7.0-9.0 H = MPV) NEUTROPHIL % (test code = NT%) 68.0 % 56.0-77.0 N IMMATURE GRANULOCYTE % (test 0.2 % 0.0-2.0 N code = IG%) LYMPHOCYTE % (test code = LY%) 20.5 % 14.0-32.0 N MONOCYTE % (test code = MO%) 8.7 % 4.8-9.0 N EOSINOPHIL % (test code = EO%) 2.3 % 0.3-3.7 N BASOPHIL % (test code = BA%) 0.3 % 0.0-2.0 N NUCLEATED RBC % (test code = 0.0 % 0-0 N NRBC%) NEUTROPHIL # (test code = NT#) 6.23 x10 3/uL 2.0-7.6 N IMMATURE GRANULOCYTE # (test 0.02 x10 3/uL 0.00-0.03 N code = IG#) LYMPHOCYTE # (test code = LY#) 1.88 x10 3/uL 1.0-3.8 N MONOCYTE # (test code = MO#) 0.80 x10 3/uL 0.1-0.8 N EOSINOPHIL # (test code = EO#) 0.21 x10 3/uL 0.0-0.2 H BASOPHIL # (test code = BA#) 0.03 x10 3/uL 0.0-0.2 N NUCLEATED RBC # (test code = 0.00 x10 3/uL 0.0-0.1 N NRBC#) MANUAL DIFF REQUIRED (test code NO = MDIFF) GLUCOSE [id number] 13:59:00 Test Item Value Reference Range Interpretation Comments GLUCOSE BEDSIDE (test 127 MG/DL 70-110 H Perfor med by certified code = GLUBED) swing saw operator at [place] [id number] 13:39:00 Test Item Value Reference Range Interpretation Comments ACT-ISTAT (test code 279 SEC 74-137 H Perform ed by certified = ACTI) swing saw operator at [place] [id number] 13:29:00 Test Item Value Reference Range Interpretation Comments ACT-ISTAT (test code 243 SEC 74-137 H Perform ed by certified = ACTI) swing saw operator at [place] [id number] 13:07:00 Test Item Value Reference Range Interpretation Comments ACT-ISTAT (test code 327 SEC 74-137 H Perform ed by certified = ACTI) swing saw operator at [facility] GLUCOSE [id number] 10:34:00 Test Item Value Reference Range Interpretation Comments GLUCOSE BEDSIDE (test 154 MG/DL 70-110 H Perfor med by certified code = GLUBED) swing saw operator at [facility] BASIC METABOLIC [id number] 12:01:00 Test Item Value Reference Range Interpretation Comments SODIUM (test code = NA) 144 mEq/L 134-147 N POTASSIUM (test code = 3.5 mEq/L 3.4-5.0 N K) CHLORIDE (test code = 105 mEq/L 100-108 N CL) CARBON DIOXIDE (test 26 mEq/l 21-33 N code = CO2) ANION GAP (test code = 16 0-20 N GAP) GLUCOSE (test code = 222 mg/dL 70-110 H GLU) BLOOD UREA NITROGEN 15 mg/dL 7-18 N (test code = BUN) GLOMERULAR FILTRATION 66.2 80-90 L Units of measure = RATE (test code = GFR) ml/mi n/1.73 m2 CREATININE (test code = 1.3 mg/dL 0.6-1.3 N CREAT) CALCIUM (test code = 9.1 mg/dL 8.0-10.5 N CA) PROTHROMBIN [id number] 11:36:00 Test Item Value Reference Range Interpretation Comments PROTHROMBIN TIME 13.5 SECONDS 9.3-12.9 H PATIENT (test code = PTP) INTERNATIONAL NORMAL 1.2 0.8-1.2 N TARGET RATIO (test code = INR BY IN DICATION INR) Indication INR1. Prophyl axis of venous thrombos is 2.0 - 3. 0 (orthopedic aidan main), Prophylaxis of venous thrombos is (other than hig h-risk surgery), Moriah tment of Deep Vein Thrombosis/Pulm onary Embolism, Preve ntion of systemic emb olism - Tissue heart va lves, Acute Myocardia l Infarction (to prevent systemic embo lism), Valvular heart disease, Atri al Fibrillation, Bileaflet mecha nical valve in aortic position.2. Mec hanical prosthetic valv es (high risk), 2.5 - 3.5 Presence of Lupus Anticoagu lant or Antiphospholi pid Antibodies, Pre vention of systemic e mbolism - Acute Myocard ial Infarction (t o prevent recurre nt infarct). CBC W/AUTO [id number] 11:35:00 Test Item Value Reference Range Interpretation Comments WHITE BLOOD CELL (test code = 8.3 x10 3/uL 4.5-11.0 N WBC) RED BLOOD CELL (test code = 5.55 x10 6/uL 4.00-5.60 N RBC) HEMOGLOBIN (test code = HGB) 14.6 g/dL 12.5-16.9 N HEMATOCRIT (test code = HCT) 50.0 % 37.5-50.7 N MEAN CELL VOLUME (test code = 90.1 fL 81.0-99.0 N MCV) MEAN CELL HGB (test code = MCH) 26.3 pg 27.0-33.0 L MEAN CELL HGB CONCETRATION 29.2 g/dL 33.0-37.0 L (test code = MCHC) RED CELL DISTRIBUTION WIDTH CV 16.7 % 11.5-14.5 H (test code = RDW) RED CELL DISTRIBUTION WIDTH SD 56.3 fL 37.0-54.0 H (test code = RDW-SD) PLATELET COUNT (test code = 234 x10 3/uL 150-400 N PLT) MEAN PLATELET VOLUME (test code 10.8 fL 7.0-9.0 H = MPV) NEUTROPHIL % (test code = NT%) 65.3 % 56.0-77.0 N IMMATURE GRANULOCYTE % (test 0.4 % 0.0-2.0 N code = IG%) LYMPHOCYTE % (test code = LY%) 24.3 % 14.0-32.0 N MONOCYTE % (test code = MO%) 7.6 % 4.8-9.0 N EOSINOPHIL % (test code = EO%) 1.8 % 0.3-3.7 N BASOPHIL % (test code = BA%) 0.6 % 0.0-2.0 N NUCLEATED RBC % (test code = 0.0 % 0-0 N NRBC%) NEUTROPHIL # (test code = NT#) 5.45 x10 3/uL 2.0-7.6 N IMMATURE GRANULOCYTE # (test 0.03 x10 3/uL 0.00-0.03 N code = IG#) LYMPHOCYTE # (test code = LY#) 2.03 x10 3/uL 1.0-3.8 N MONOCYTE # (test code = MO#) 0.63 x10 3/uL 0.1-0.8 N EOSINOPHIL # (test code = EO#) 0.15 x10 3/uL 0.0-0.2 N BASOPHIL # (test code = BA#) 0.05 x10 3/uL 0.0-0.2 N NUCLEATED RBC # (test code = 0.00 x10 3/uL 0.0-0.1 N NRBC#) MANUAL DIFF REQUIRED (test code NO = MDIFF) BASIC METABOLIC [id number] 11:41:00 Test Item Value Reference Range Interpretation Comments SODIUM (test code = NA) 144 mEq/L 134-147 N POTASSIUM (test code = 3.2 mEq/L 3.4-5.0 L K) CHLORIDE (test code = 109 mEq/L 100-108 H CL) CARBON DIOXIDE (test 30 mEq/l 21-33 N code = CO2) ANION GAP (test code = 8 0-20 N GAP) GLUCOSE (test code = 156 mg/dL 70-110 H GLU) BLOOD UREA NITROGEN 7 mg/dL 7-18 N (test code = BUN) GLOMERULAR FILTRATION 89.6 80-90 N Units of measure = RATE (test code = GFR) ml/mi n/1.73 m2 CREATININE (test code = 1.0 mg/dL 0.6-1.3 N CREAT) CALCIUM (test code = 8.2 mg/dL 8.0-10.5 N CA) CBC W/AUTO [id number] 11:19:00 Test Item Value Reference Range Interpretation Comments WHITE BLOOD CELL (test code = 7.5 x10 3/uL 4.5-11.0 N WBC) RED BLOOD CELL (test code = 4.34 x10 6/uL 4.00-5.60 N RBC) HEMOGLOBIN (test code = HGB) 12.1 g/dL 12.5-16.9 L HEMATOCRIT (test code = HCT) 40.1 % 37.5-50.7 N MEAN CELL VOLUME (test code = 92.4 fL 81.0-99.0 N MCV) MEAN CELL HGB (test code = MCH) 27.9 pg 27.0-33.0 N MEAN CELL HGB CONCETRATION 30.2 g/dL 33.0-37.0 L (test code = MCHC) RED CELL DISTRIBUTION WIDTH CV 16.8 % 11.5-14.5 H (test code = RDW) PLATELET COUNT (test code = 173 x10 3/uL 150-400 N PLT) NEUTROPHIL % (test code = NT%) 66.9 % 56.0-77.0 N LYMPHOCYTE % (test code = LY%) 23.3 % 14.0-32.0 N NEUTROPHIL # (test code = NT#) 4.99 x10 3/uL 2.0-7.6 N LYMPHOCYTE # (test code = LY#) 1.74 x10 3/uL 1.0-3.8 N MANUAL DIFF REQUIRED (test code NO = MDIFF) RED CELL DISTRIBUTION WIDTH SD 57.3 fL 37.0-54.0 H (test code = RDW-SD) MEAN PLATELET VOLUME (test code 11.1 fL 7.0-9.0 H = MPV) IMMATURE GRANULOCYTE % (test 0.1 % 0.0-2.0 N code = IG%) MONOCYTE % (test code = MO%) 8.2 % 4.8-9.0 N EOSINOPHIL % (test code = EO%) 1.2 % 0.3-3.7 N BASOPHIL % (test code = BA%) 0.3 % 0.0-2.0 N NUCLEATED RBC % (test code = 0.0 % 0-0 N NRBC%) IMMATURE GRANULOCYTE # (test 0.01 x10 3/uL 0.00-0.03 N code = IG#) MONOCYTE # (test code = MO#) 0.61 x10 3/uL 0.1-0.8 N EOSINOPHIL # (test code = EO#) 0.09 x10 3/uL 0.0-0.2 N BASOPHIL # (test code = BA#) 0.02 x10 3/uL 0.0-0.2 N NUCLEATED RBC # (test code = 0.00 x10 3/uL 0.0-0.1 N NRBC#) GLUCOSE [id number] 09:23:00 Test Item Value Reference Range Interpretation Comments GLUCOSE BEDSIDE (test 108 MG/DL 70-110 N [facility] med by certified code = GLUBED) swing saw operator at [facility] [id number] 08:44:00 Test Item Value Reference Range Interpretation Comments ACT-ISTAT (test code 273 SEC 74-137 H Perform ed by certified = ACTI) swing saw operator at [facility] BASIC METABOLIC [id number] 08:38:00 Test Item Value Reference Range Interpretation Comments SODIUM (test code = NA) 145 mEq/L 134-147 N POTASSIUM (test code = 3.0 mEq/L 3.4-5.0 L K) CHLORIDE (test code = 110 mEq/L 100-108 H CL) CARBON DIOXIDE (test 32 mEq/l 21-33 N code = CO2) ANION GAP (test code = 6 0-20 N GAP) GLUCOSE (test code = 124 mg/dL 70-110 H GLU) BLOOD UREA NITROGEN 8 mg/dL 7-18 N (test code = BUN) GLOMERULAR FILTRATION 101.2 80-90 H Units of measure = RATE (test code = GFR) ml/mi n/1.73 m2 CREATININE (test code = 0.9 mg/dL 0.6-1.3 N CREAT) CALCIUM (test code = 8.3 mg/dL 8.0-10.5 N CA) [id number] 08:22:00 Test Item Value Reference Range Interpretation Comments ACT-ISTAT (test code 303 SEC 74-137 H Perform ed by certified = ACTI) swing saw operator at [facility] GLUCOSE [id number] 06:14:00 Test Item Value Reference Range Interpretation Comments GLUCOSE BEDSIDE (test 115 MG/DL 70-110 H [facility] med by certified code = GLUBED) swing saw operator at [facility] BASIC METABOLIC [id number] 11:09:00 Test Item Value Reference Range Interpretation Comments SODIUM (test code = NA) 144 mEq/L 134-147 N POTASSIUM (test code = 2.9 mEq/L 3.4-5.0 LL Criti kathie result K) called to SAMMI BOB/August Sotomayor G.LAB.LS at 110 2 11/24/21Ncoreen fischer back resut and tech confirmed it's correct? YES CHLORIDE (test code = 108 mEq/L 100-108 N CL) CARBON DIOXIDE (test 31 mEq/l 21-33 N code = CO2) ANION GAP (test code = 8 0-20 N GAP) GLUCOSE (test code = 198 mg/dL 70-110 H GLU) BLOOD UREA NITROGEN 7 mg/dL 7-18 N (test code = BUN) GLOMERULAR FILTRATION 89.6 80-90 N Units of measure = RATE (test code = GFR) ml/mi n/1.73 m2 CREATININE (test code = 1.0 mg/dL 0.6-1.3 N CREAT) CALCIUM (test code = 8.1 mg/dL 8.0-10.5 N CA) PROTHROMBIN [id number] 10:36:00 Test Item Value Reference Range Interpretation Comments PROTHROMBIN TIME 15.2 SECONDS 9.3-12.9 H PATIENT (test code = PTP) INTERNATIONAL NORMAL 1.4 0.8-1.2 H TARGET RATIO (test code = INR BY IN DICATION INR) Indication INR1. Prophyl axis of venous thrombos is 2.0 - 3. 0 (orthopedic aidan main), Prophylaxis of venous thrombos is (other than hig h-risk surgery), Moriah tment of Deep Vein Thrombosis/Pulm onary Embolism, Preve ntion of systemic emb olism - Tissue heart va lves, Acute Myocardia l Infarction (to prevent systemic embo lism), Valvular heart disease, Atri al Fibrillation, Bileaflet mecha nical valve in aortic position.2. Mec hanical prosthetic valv es (high risk), 2.5 - 3.5 Presence of Lupus Anticoagu lant or Antiphospholi pid Antibodies, Pre vention of systemic e mbolism - Acute Myocard ial Infarction (t o prevent recurre nt infarct). CBC W/AUTO [id number] 10:21:00 Test Item Value Reference Range Interpretation Comments WHITE BLOOD CELL (test code = 9.0 x10 3/uL 4.5-11.0 N WBC) RED BLOOD CELL (test code = 4.68 x10 6/uL 4.00-5.60 N RBC) HEMOGLOBIN (test code = HGB) 13.1 g/dL 12.5-16.9 N HEMATOCRIT (test code = HCT) 43.7 % 37.5-50.7 N MEAN CELL VOLUME (test code = 93.4 fL 81.0-99.0 N MCV) MEAN CELL HGB (test code = MCH) 28.0 pg 27.0-33.0 N MEAN CELL HGB CONCETRATION 30.0 g/dL 33.0-37.0 L (test code = MCHC) RED CELL DISTRIBUTION WIDTH CV 16.5 % 11.5-14.5 H (test code = RDW) PLATELET COUNT (test code = 179 x10 3/uL 150-400 N PLT) NEUTROPHIL % (test code = NT%) 79.9 % 56.0-77.0 H LYMPHOCYTE % (test code = LY%) 11.3 % 14.0-32.0 L NEUTROPHIL # (test code = NT#) 7.16 x10 3/uL 2.0-7.6 N LYMPHOCYTE # (test code = LY#) 1.01 x10 3/uL 1.0-3.8 N MANUAL DIFF REQUIRED (test code NO = MDIFF) RED CELL DISTRIBUTION WIDTH SD 56.4 fL 37.0-54.0 H (test code = RDW-SD) MEAN PLATELET VOLUME (test code 11.3 fL 7.0-9.0 H = MPV) IMMATURE GRANULOCYTE % (test 0.2 % 0.0-2.0 N code = IG%) MONOCYTE % (test code = MO%) 7.6 % 4.8-9.0 N EOSINOPHIL % (test code = EO%) 0.8 % 0.3-3.7 N BASOPHIL % (test code = BA%) 0.2 % 0.0-2.0 N NUCLEATED RBC % (test code = 0.0 % 0-0 N NRBC%) IMMATURE GRANULOCYTE # (test 0.02 x10 3/uL 0.00-0.03 N code = IG#) MONOCYTE # (test code = MO#) 0.68 x10 3/uL 0.1-0.8 N EOSINOPHIL # (test code = EO#) 0.07 x10 3/uL 0.0-0.2 N BASOPHIL # (test code = BA#) 0.02 x10 3/uL 0.0-0.2 N NUCLEATED RBC # (test code = 0.00 x10 3/uL 0.0-0.1 N NRBC#) [id number] 14:18:00 Test Item Value Reference Range Interpretation Comments GLUBED (test code = GLUBED) 167 mg/dL 70-110 H [id number] 14:17:00 Test Item Value Reference Range Interpretation Comments GLUBED (test code = GLUBED) 117 mg/dL 70-110 H [id number] 07:34:00 Test Item Value Reference Range Interpretation Comments GLUBED (test code = GLUBED) 215 mg/dL 70-110 H CBC W/AUTO [id number] 06:26:00 Test Item Value Reference Range Interpretation [...] X10 3uL 0.00-0.01 N NRBC#) BASIC METABOLIC [id number] 06:17:00 Test Item Value Reference Range Interpretation [...] code = CA) 8.6 mg/dl 8.0-10.5 N [id number] 07:26:00 Test Item Value Reference Range Interpretation Comments TROPONIN-I (test 0.63 NG/ML 0.00-0.06 HH REFERENCE R XAVIER TROPONIN code = TROPI) I HEALTHY PERNELL VIDUALS: <0.06 ng/mL R/O ISCHEMIA: 0.07 - 0.60 ng/mL CUT-OFF R XAVIER FOR AMI: 0.60 - 1. 5 ng/mL [id number] 06:10:00 Test Item Value Reference Range Interpretation Comments GLUBED (test code = GLUBED) 115 mg/dL 70-110 H [id number] 04:17:00 Test Item Value Reference Range Interpretation Comments TROPONIN-I (test 0.59 NG/ML 0.00-0.06 HH REFERENCE R XAVIER TROPONIN code = TROPI) I HEALTHY PERNELL VIDUALS: <0.06 ng/mL R/O ISCHEMIA: 0.07 - 0.60 ng/mL CUT-OFF R XAVIER FOR AMI: 0.60 - 1. 5 ng/mL [id number] 22:52:00 Test Item Value Reference Range Interpretation Comments TROPONIN-I (test 0.43 NG/ML 0.00-0.06 H REFERENCE R XAVIER TROPONIN code = TROPI) I HEALTHY PERNELL VIDUALS: <0.06 ng/mL R/O ISCHEMIA: 0.07 - 0.60 ng/mL CUT-OFF R XAVIER FOR AMI: 0.60 - 1. 5 ng/mL BASIC METABOLIC [id number] 17:55:00 Test Item Value Reference Range Interpretation [...] code = CA) 8.5 mg/dl 8.0-10.5 N B-TYPE NATRIURETIC [id number] 17:55:00 Test Item Value Reference Range Interpretation Comments B-TYPE NATRIURETIC PEPTIDE (test 670 PG/ML 5-100 H code = BNP) [id number] 17:55:00 Test Item Value Reference Range Interpretation Comments TROPONIN-I (test 0.04 NG/ML 0.00-0.06 N REFERENCE R XAVIER TROPONIN code = TROPI) I HEALTHY PERNELL VIDUALS: <0.06 ng/mL R/O ISCHEMIA: 0.07 - 0.60 ng/mL CUT-OFF R XAVIER FOR AMI: 0.60 - 1. 5 ng/mL [id number] 17:52:00 Test Item Value Reference Range Interpretation Comments GLUBED (test code = GLUBED) 117 mg/dL 70-110 H COVID 19 Asymptomatic IH [id number] 17:49:00 Test Item Value Reference Range Interpretation Comments COVID 19 NEGATIVE NEGATIVE Negative result s should be Asymptomatic IH AG treated a s presumptive and (test code = ifinconsistent with COVNONPUIAG) clinical signs and symptoms, or ne cessaryfor patient managem ent, should be tested with an alternativemole cular assay. Negative results do not preclude [id number] tion and should not be u sed as the sole basis forp atient management deci sions. Negative result s should beconsidered in the context of a pa tient's recent exposure s,history, presence of cli nical signs and symptoms consistentwith COVID-19. PROTHROMBIN [id number] 17:20:00 Test Item Value Reference Range Interpretation Comments PROTHROMBIN TIME 15.1 SECONDS 9.9-12.8 H PATIENT (test code = PTP) INTERNATIONAL NORMAL 1.3 0.89-1.14 H THE INR IS TO BE USED RATIO (test code = ONLY FOR MONITORING INR) ORAL ANTICOAGULANTTH ERAPY. THE FOLLOWING A RE SUGGESTED RANGE S FROM [facility] LEGE OF CHEST PHYSICIANS:PERNELL CATION INR VALUEPROPHYLAXI S OF VENOUS THROMBOS IS (ORTHOPEDIC AIDAN MAIN) 2.0 - 3.0PROP HYLAXIS OF VENOUS THROM BOSIS (OTHER THAN HIG H-RISK SURGERY) 2.0 - 3.0TRE ATMENT OF DEEP VEIN THROMBOSIS OR PULMONARY EMBOL ISM 2.0 - 3.0PREV ENTION OF SYSTEMIC EMB OLISM TISSUE HEART VA LVES 2.0 - 3.0 AC [place] MYOCARDIAL INFA RCTION (TO PREVENT SYSTEMIC EMBOLI [...] - 3 .5 Specimen comments: .CBC W/AUTO [id number] 17:09:00 Test Item Value Reference Range Interpretation [...] 0.00-0.01 N NRBC#) - XR CHEST 1 [id number] 16:43:00 [facility] : 1950 Sex: M FAX: Shara Jackman MD [phone] [place]: St: PRE Name: RENÉELLE Alfonso [facility] : 1950 Age/S: 71/M [address] [facility] Unit #: [id number] Loc: [place], [place]: [place] [id number] Acct: [id number] Dis Date: Status: PRE ER PHONE #: [phone] Exam Date: 10/30/2021 1642 FAX #: [phone] Reason: SOB EXAMS: CPT CODE: [id number] XR CHEST 1 V [id number] EXAMINATION: - XR CHEST 1 V. LOCATION:B2. HISTORY: SOB. COMPARISON: None. TECHNIQUE: Single AP view of the chest was obtained. FINDINGS: The heart is enlarged in size. Left AICD device is present. There is mild prominence of the central pulmonary vasculature. No acute osseous abnormality is identified. IMPRESSION: Cardiomegaly with mild central pulmonary congestion. [id number] Reported and signed by: Rupal Gunter M.D. CC: Shara Jackman MD Technologist: JJ GIRALDO Trnscrd Date/Time/By: 10/30/2021 (1642) : By: [email or web address] PAGE 1 Sig rosaline Report FAX: Shara Jackman MD [phone] [place]: St: PRE -- Name: ELLE MERRITT [facility] : 1950 Age/S: 71/M [address] [employer] [facility] Unit #: [id number] [place]: [place] [id number] Acct: [id number] Dis Date: Status: PRE ER PHONE #: [phone] Date: 10/30/20211641 FAX #: [phone] Reason: SOB EXAMS: CPT CODE: [id number] XR CHEST 1 V [id number] <Continued> Orig Print D/T: S: 10/30/2021 (1235) PAGE 2 Signed Report
[2022-03-07 00:07] VITALS: BMI 37.8
[2022-03-07] MEDS ORDERED: ACETAMINOPHEN 500 MG TAB PO PRN (00:24)
[2022-03-07] MEDS ORDERED: ONDANSETRON 4 MG/2 ML VIAL IV PRN (00:24)
[2022-03-07] MEDS ORDERED: GLUCAGON 1 MG/VIAL IM PRN (00:29)
[2022-03-07] MEDS ORDERED: D50W 25 GM/50 ML SYRINGE IV PRN (00:29)
--- NOTE | 2022-03-07 00:40 | P.HP ---
Certification for Inpatient Patient admitted to: Inpatient With expected LOS: >2 Midnights Patient will require the following post-hospital care: None Practitioner: I am a practitioner with admitting privileges, knowledge of patient current condition, hospital course, and medical plan of care. Services: Services provided to patient in accordance with Admission requirements found in Title 42 Section 412.3 of the Code of Federal Regulations Patient History Date of Service: 03/07/22 Reason for admission: CHF exacerbation History of Present Illness: 71-year-old male with history of chronic systolic congestive heart failure with pacemaker/defibrillator , CAD, diabetes type 2insulin-dependent, hypertension, hyperlipidemia presented to outside hospital emergency department for shortness of breath and swelling of the lower extremities, he reports he has been out of his Lasix for the last 3 weeks he was noted to have 3-4+ pitting edema bilateral lower extremities and his labs were significant for a potassium of 2.9 elevated BNP high-sensitivity troponin 166.1 chest x-ray showed pulmonary vascular congestion and diffuse interstitial prominence of suggestive of edema also noted small nodular opacity overlying right midlung which could represent lung nodule versus lesion within the right seventh posterior rib CT chest follow-up following clinical resolution of edema may be performed patient had CT scan of his head which was negative for any acute findings outside hospital discussed case with cardiology here who accepted patient recommended to be admitted to the hospital service. When I saw the patient in the exam room he was awake, alert, oriented x4 in no distress does have significant pedal edema he was given potassium at outside hospital. Allergies No Known Allergies Allergy (Verified 03/07/22 00:07) Home Medications: Atorvastatin Calcium [Lipitor] 80 mg PO DAILY 11/03/21 Furosemide [Lasix] 40 mg PO DAILY 6PM 11/03/21 Furosemide [Lasix] 80 mg PO BREAKFAST 11/03/21 Glipizide [Glipizide ER] 5 mg PO BID 11/03/21 Metformin ER [Glucophage ER*] 500 mg PO BID 11/03/21 NPH, Human Insulin Isophane [Humulin N] 14 units IN DAILY 11/03/21 Terazosin HCl 10 mg PO BEDTIME PRN 11/03/21 Terazosin HCl [Hytrin] 10 mg PO BEDTIME 11/03/21 bisoproloL fumarate [Zebeta*] 5 mg PO DAILY 11/03/21 Amiodarone HCl [Cordarone*] 400 mg PO BID #72 tab 11/05/21 Sacubitril/Valsartan [Entresto 24 mg-26 mg Tablet] 1 tab PO BID tab 11/05/21 - Past Medical/Surgical History -: HTN -: HLD -: DM insulin-dependent -: CAD -: myocardial infarcation -: CHF/systolic -: pacemaker/defibrillator -: cardiac stent x2 -: lumbar laminectomy -: cervical spine surgery Psychosocial/ Personal History: Patient lives at home, alone - Family History Family History: Reviewed- Non-Contributory - Social History Smoking Status: Never smoker Alcohol use: No CD- Drugs: No Caffeine use: Yes Place of Residence: Home Review of Systems 10-point ROS is otherwise unremarkable Respiratory: Shortness of Breath Cardiovascular: Orthopnea, Edema Physical Examination - Physical Exam General: Alert, In no apparent distress, Oriented x3, Obese HEENT: Atraumatic, PERRLA, Mucous membr. moist/pink, EOMI, Sclerae nonicteric Neck: Supple, 2+ carotid pulse no bruit Respiratory: Diminished, Crackles/rales Cardiovascular: Regular rate/rhythm, Normal S1 S2, Edema (3+ pitting edema bilateral lower extremities, scrotal edema) Capillary refill: <2 Seconds Gastrointestinal: Normal bowel sounds, No tenderness Musculoskeletal: No tenderness Integumentary: No rashes Neurological: Normal speech, Normal strength at 5/5 x4 extr, Normal tone, Normal affect Assessment and Plan - Plan Assessment: NSTEMI Acute on chronic systolic congestive heart failure S/P pacemaker/defibrillator History CAD Hypokalemia Diabetes mellitus type 2insulin-dependent Hypertension Incidental finding/pulmonary nodule on chest x-ray Plan: NSTEMI: Suspect main ischemia related to acute on chronic systolic ingestive heart failure, cardiology consulted echocardiogram performed on 11/04/2021 demonstrated dilated cardiomyopathy with ejection fraction of 43% with global hypokinesis. Trend troponins, monitor on telemetry continue home medications appreciate further input from cardiology. Patient reports that he had recent heart catheterization approximate 3 months ago at [facility] with Dr. Antonio with stent placement. Acute on chronic systolic congestive heart failure S/P pacemaker/defibrillator: Patient reports has been out of his Lasix at home he has significant edema of l ower extremities and scrotum we will continue with IV Lasix, 1500 cc/day fluid restriction, daily weights. Appreciate further input from cardiology. History CAD: Continue home medications, monitor on telemetry Hypokalemia: Replaced at outside hospital Daily chemistry, replace per protocol. Diabetes mellitus type 2insulin-dependent: ACH S Accu-Chek, sliding scale insulin, patient takes 16 units of insulin twice daily he believes it is NPH. Hypertension: Continue home medications adjust as necessary. Incidental finding/pulmonary nodule on chest x-ray: Small nodular opacity overlying the right midlung which could represent lung nodule versus lesion within the right seventh posterior rib CT chest follow-up following clinical resolution of edema may be performed per radiology. Discussed with patient. Recommend CT following resolution of pulmonary edema for further evaluation DVT PPX: Full dose Lovenox Code status: Full Discharge Plan: Home Plan to discharge in: 72 Hours - Advance Directives Does patient have a Living Will: No Does patient have a Durable POA for Healthcare: No - Code Status/Comfort Care Code Status Assessed: Yes (Full) Critical Care: No Time Spent Managing Pts Care (In Minutes): 70
[2022-03-07] MEDS ORDERED: D10W 125 ML IV PRN (00:41)
[2022-03-07] MEDS: FUROSEMIDE 40 MG/4 ML VIAL IV SCH ×3 (01:02→16:51)
[2022-03-07 04:09] LABS: Urine Appearance Clear (Clear); Urine Bilirubin Negative (Negative); Urine Blood Negative (Negative); Urine Color Yellow (Yellow); Urine Glucose Negative (Negative); Urine Protein 1+ (Negative); Urine Specific Gravity 1.025 (1.005-1.030); Urine pH 5.5 (5.0-7.0)
[2022-03-07 04:20] LABS: Urine Microscopic Reflex ORDER UMIC
[2022-03-07 04:22] LABS: Urine RBC <5 /HPF (NONE SEEN)
[2022-03-07 04:23] LABS: Urine Bacteria 20-50 /HPF (NONE SEEN); Urine Mucus 3+ /HPF (NONE SEEN)
[2022-03-07 05:55] LABS: Absolute Lymphocytes (CBC) 1.3 K/uL (0.7-4.9); Hematocrit 42.5 % (39.6-49.0); Lymphocytes % 18.1 % (15.3-44.8); MPV 8.8 fL (7.6-11.3); RBC Red Blood Cell Count 5.21 M/uL (4.33-5.43)
[2022-03-07 06:15] LABS: Albumin 3.3 g/dL (3.4-5.0); Bilirubin Total 0.7 mg/dL (0.2-1.0); Magnesium 1.8 mg/dL (1.8-2.4); Potassium 3.5 mmol/L (3.5-5.1); Protein, Total 7.3 g/dL (6.4-8.2)
[2022-03-07 06:22] LABS: Troponin High Sensitivity 179.8 pg/mL (<58.9)
[2022-03-07] MEDS ORDERED: MAGNESIUM SULFATE 1 gm IVPB 1 GM/100 ML BAG IV ONE (07:00)
[2022-03-07] MEDS: INSULIN -REGULAR HUMAN 50 UNIT/0.5 ML ML SQ SCH ×4 (07:30→20:35)
[2022-03-07] MEDS ORDERED: POTASSIUM CL SA 10 MEQ TAB PO ONE (09:00)
[2022-03-07] MEDS ORDERED: Enoxaparin 120 MG/0.8 ML SYR SQ SCH (09:00)
[2022-03-07] MEDS: ATORVASTATIN 80 MG TAB PO SCH (09:22)
[2022-03-07] MEDS: AMIODARONE HCL 200 MG TAB PO SCH ×2 (09:22→20:35)
[2022-03-07] MEDS: SACUBITRIL/VALSARTAN 24/26 MG TAB PO SCH ×2 (09:22→20:35)
[2022-03-07] MEDS: NPH (HUMAN) 100 UNITS/ML INSULIN SQ SCH ×2 (09:23→16:51)
[2022-03-07] MEDS ORDERED: CLOPIDOGREL 75 MG TABLET PO ONE (11:32)
--- NOTE | 2022-03-07 12:08 | CON ---
Date of Consultation: 03/07/2022 Reason For Consultation: CHF exacerbation. History Of Present Illness: A 71-year-old male, history of systolic congestive heart failure, type 2 diabetes, coronary artery disease status post PCI of LAD [employer] recently and left circumflex. Has hist ory of hypertension, dyslipidemia, not very well compliant with diet, presented with significant shor tness of breath, lower extremity edema and orthopnea. Has 3 to 4+ pedal edema. He presented to [facility], was contacted by the RN, accepted the patient to come in for acute CHF exacerbation man alicia, saw him by bedside. He was lying flat, feeling slightly better, but still having significan t fluid overload and fluid retention. Past Medical History: As outlined above in the HPI. Medications: Refer to reconciliation sheet for detailed list. Allergies: NO KNOWN DRUG ALLERGIES. Family History: No premature coronary artery disease or cancer. Social History: Does not smoke or drink. Does not use any drugs. Review of Systems: All systems reviewed and were negative except those mentioned in the HPI. Physical Examination: Vital Signs: Reviewed. Head and Neck: Pupils are equal, reactive to light. Intact eye movements. No JVD. No cervical lym phadenopathy. Neck: Supple. Thyroid is not enlarged. Lungs: Crackles both bases. No accessory muscle use or muscle retraction. Heart: Irregular with no extra sounds. Abdomen: Soft, nontender. Bowel sounds positive. No organomegaly. No masses or hernia. No rigidi ty or rebound. Extremities: 3 to 4+ pedal edema. No clubbing or cyanosis. Intact pulses. Skin: No rash. Neurologic: Alert, awake. No acute focal deficits appreciated. Investigations: Hemoglobin is 13, white blood cell count is 7, creatinine 1.2. Troponin 179. Assessment And Recommendations: 1.Acute on chronic systolic heart failure exacerbation. Recommend aggressive diuresis, Lasix 40 mg IV q.8 hours and monitor BUN, creatinine, electrolytes, and low-salt diet. 2.Elevated troponin with known history of coronary artery disease. Trend troponin 2 more sets and t his is likely a demand due to the congestive heart failure and please make sure that this patient is on Plavix and aspirin. He had a recent stent placed and continue statin as well. SR/MODL Voice ID: [id number] Report ID: [id number]
[2022-03-07] MEDS: ASPIRIN EC 81 MG TAB PO SCH (12:11)
--- NOTE | 2022-03-07 15:36 | P.PN ---
Date of Service: 03/07/22 Subjective: feels about the same, no worsening, no significant improvement yet no new symptoms ROS: 10 point ROS as noted above, otherwise negative Physical exam GEN: Alert, oriented, NAD HEENT: Normal conjunctiva, sclera anicteric CV: Regular rate and rhythm, 3+ pitting edema b/l lower extremities, up to abdomen, +scrotal edema Pulm: b/l crackles, diminished at bases bilaterally. Mildly labored respirations on 4 L nasal cannula ABD: Soft, nontender, nondistended Neuro: Normal speech, normal affect Problem List NSTEMI, suspect demand ischemia Acute on chronic systolic congestive heart failure S/P pacemaker/defibrillator History CAD Hypokalemia Diabetes mellitus type 2insulin-dependent Hypertension Incidental finding/pulmonary nodule on chest x-ray Patient in acute CHF Aggressive diuresis, continue Lasix 40 mg every 8 IV Cardiology consulted Troponins trending flat, suspect due to demand ischemia in the setting of acute CHF Patient has been off his lasix for several months recent cath ~3 months ago with stent placement; unsure if has been taking plavix as directed load with plavix 03/07, start 75mg 03/08 replace electrolytes as needed Sliding scale insulin, adjust as needed small nodular opacitiy overlying right mid-lung, could represent jacinto nodule vs lesions within the right seventh posterior rib. recommend CT follow up in a few months DVT PPX: Full dose Lovenox Code status: Full Dispo: home, ~2-3 days
[2022-03-08] MEDS: FUROSEMIDE 40 MG/4 ML VIAL IV SCH ×3 (00:05→18:09)
[2022-03-08] MEDS ORDERED: FLUTICASONE 50MCG NASAL SPRAY NAS PRN (04:18)
[2022-03-08 06:15] LABS: Hematocrit 38.5 % (39.6-49.0); Lymphocytes % 16.9 % (15.3-44.8); MPV 9.4 fL (7.6-11.3); RBC Red Blood Cell Count 4.75 M/uL (4.33-5.43)
[2022-03-08 06:34] LABS: Albumin 2.9 g/dL (3.4-5.0); Bilirubin Total 0.6 mg/dL (0.2-1.0); Magnesium 1.8 mg/dL (1.8-2.4); Potassium 3.4 mmol/L (3.5-5.1); Protein, Total 6.2 g/dL (6.4-8.2)
[2022-03-08 06:36] LABS: Troponin High Sensitivity 146.6 pg/mL (<58.9)
--- NOTE | 2022-03-08 07:04 | P.PN ---
Date of Service: 03/08/22 Subjective: more alert/awake this morning denies chest pain feels swelling is about same reports R testicle pain/swelling. h/o pain since injury at work long ago, but worse now ROS: 10 point ROS as noted above, otherwise negative Physical exam GEN: Alert, oriented, NAD HEENT: Normal conjunctiva, sclera anicteric CV: Regular rate and rhythm, 3+ pitting edema b/l lower extremities, up to abdomen, +scrotal edema Pulm: b/l crackles, diminished at bases bilaterally. Mildly labored respirations on 4 L nasal cannula ABD: Soft, nontender, nondistended Neuro: Normal speech, normal affect : scrotal edema, +tender R testicle Problem List NSTEMI, suspect demand ischemia Acute on chronic systolic congestive heart failure S/P pacemaker/defibrillator Scrotal / testicular pain History CAD Hypokalemia Diabetes mellitus type 2insulin-dependent Hypertension Incidental finding/pulmonary nodule on chest x-ray Patient in acute CHF - continue aggressive diuresis, continue Lasix 40 mg every 8 IV Cardiology consulted Troponins trending flat, suspect due to demand ischemia in the setting of acute CHF Patient has been off his lasix for several months recent cath ~3 months ago with stent placement; unsure if has been taking plavix as directed loaded with plavix 03/07, started 75mg 03/08, continue aspirin, statin replace electrolytes as needed Sliding scale insulin, adjust as needed small nodular opacitiy overlying right mid-lung, could represent jacinto nodule vs lesions within the right seventh posterior rib. recommend CT follow up in a few months r testicle tender, scrotal swelling. suspect secondary to edema; UA with +bacteria. empiric coverage with levaquin for now DVT PPX: lovenox Code status: Full Dispo: home, ~2-3 days
[2022-03-08] MEDS: INSULIN -REGULAR HUMAN 50 UNIT/0.5 ML ML SQ SCH ×4 (07:30→21:27)
[2022-03-08] MEDS ORDERED: POTASSIUM CL SA 10 MEQ TAB PO ONE ×2 (09:00→21:00)
--- NOTE | 2022-03-08 09:14 | RAD REPORT ---
EXAM DESCRIPTION: RAD - Chest Single View - 03/08/2022 9:00 am CLINICAL HISTORY: hypoxia Chest pain. COMPARISON: Chest Single View dated 11/03/2021 FINDINGS: Portable technique limits examination quality. Mild pulmonary edema is noted. The heart is mildly enlarged size. Multi lead pacer/defibrillator rebel ce present. IMPRESSION: Mild CHF.
[2022-03-08] MEDS: ASPIRIN EC 81 MG TAB PO SCH (09:20)
[2022-03-08] MEDS: CLOPIDOGREL 75 MG TABLET PO SCH (09:20)
[2022-03-08] MEDS: SACUBITRIL/VALSARTAN 24/26 MG TAB PO SCH ×2 (09:20→21:26)
[2022-03-08] MEDS: NPH (HUMAN) 100 UNITS/ML INSULIN SQ SCH ×2 (09:21→18:10)
[2022-03-08] MEDS: AMIODARONE HCL 200 MG TAB PO SCH ×2 (09:21→21:27)
[2022-03-08] MEDS: ATORVASTATIN 80 MG TAB PO SCH (09:22)
[2022-03-08] MEDS ORDERED: OXYMETAZOLINE HCL 0.05% 15ML NAS PRN (12:29)
--- NOTE | 2022-03-08 17:35 | PN ---
Date of Progress Note: 03/08/2022 Subjective: Seen by bedside. He is doing much better. Making good amount of urine. Review of Systems: No chest pain. Has shortness of breath on exertion. No orthopnea, lower extremity edema. No nausea , vomiting, diarrhea. No abdominal pain. All other systems reviewed are negative. Physical Examination: Vital Signs: Reviewed. Head and Neck: Pupils are equal and reactive to light. Intact eye movements. Positive JVD. No cer vical lymphadenopathy. Neck: Supple. Thyroid is not enlarged. Lungs: Crackles in both bases. No accessory muscle use or muscle retraction. Heart: Irregular with S3. Abdomen: Soft, nontender. Bowel sounds positive. No organomegaly. No masses or hernia. No rigidi ty or rebound. Extremities: Has 3+ pitting edema bilaterally, improved comparing yesterday. No clubbing, cyanosis. Intact pulses. Skin: No rash. Neurologic: Alert, awake, oriented x3. No acute focal deficits appreciated. Lymph Nodes: No cervical adenopathy. Investigations: Labs were reviewed. Assessment And Recommendations: 1.Acute on chronic systolic heart failure exacerbation, improving with IV diuretics. Continue curre nt regimen with Lasix. Monitor BUN, creatinine, and electrolytes. 2.Coronary artery disease. Borderline troponin leak. No chest pain. This is demand ischemia. No further intervention is needed on this matter. SR/MODL Voice ID: [id number] Report ID: [id number]
[2022-03-08] MEDS: levoFLOXacin 500 MG TAB PO SCH (18:09)
--- NOTE | 2022-03-08 18:29 | RAD REPORT ---
EXAM DESCRIPTION: US - Scrotum Testicles - 03/08/2022 5:53 pm CLINICAL HISTORY: swelling, R testicle pain Right-sided scrotal pain. COMPARISON: No comparisons FINDINGS: The right testicle 4.6 x 3.6 x 3.1 cm. No intratesticular masses or evidence of testicular torsion. Dilated rete testes noted. The left testicle 4.7 x 3.3 x 2.5 cm. No intratesticular masses or evidence of testicular torsion. Di lated rete testes noted. Right epididymis appears prominent in size. Right hydrocele is present, small to moderate in size. IMPRESSION: No worrisome testicular mass or torsion findings. Small moderate right hydrocele with enlargement of the right epididymis present.
[2022-03-09] MEDS ORDERED: FAMOTIDINE 20 MG/2 ML VIAL IV ONE (01:10)
[2022-03-09] MEDS: FUROSEMIDE 40 MG/4 ML VIAL IV SCH ×3 (01:17→17:05)
[2022-03-09 06:01] LABS: Albumin 2.9 g/dL (3.4-5.0); Bilirubin Total 0.6 mg/dL (0.2-1.0); Magnesium 1.8 mg/dL (1.8-2.4); Potassium 3.5 mmol/L (3.5-5.1); Protein, Total 6.3 g/dL (6.4-8.2)
[2022-03-09 06:06] LABS: Absolute Lymphocytes (CBC) 1.2 K/uL (0.7-4.9); Hematocrit 38.3 % (39.6-49.0); Lymphocytes % 19.2 % (15.3-44.8); MPV 8.8 fL (7.6-11.3); RBC Red Blood Cell Count 4.74 M/uL (4.33-5.43)
--- NOTE | 2022-03-09 06:28 | P.PN ---
Date of Service: 03/09/22 Subjective: breathing slightly more comfortable still with significant edema, doesn't note much change ROS: 10 point ROS as noted above, otherwise negative Physical exam GEN: Alert, oriented, NAD HEENT: Normal conjunctiva, sclera anicteric CV: Regular rate and rhythm, 2-3+ pitting edema b/l lower extremities, up to abdomen, +scrotal edema Pulm: b/l crackles, diminished at bases bilaterally. Mildly labored respirations on 4 L nasal cannula ABD: Soft, nontender, nondistended Neuro: Normal speech, normal affect : scrotal edema, +tender R testicle Problem List NSTEMI, suspect demand ischemia Acute on chronic systolic congestive heart failure S/P pacemaker/defibrillator Scrotal / testicular pain -epididymitis History CAD Hypokalemia Diabetes mellitus type 2insulin-dependent Hypertension Incidental finding/pulmonary nodule on chest x-ray Patient in acute CHF - continue aggressive diuresis, continue Lasix 40 mg every 8 IV Patient has been off his lasix for several months Cardiology consulted Troponins trended flat, suspect due to demand ischemia in the setting of acute CHF recent cath ~3 months ago with stent placement; unsure if has been taking plavix as directed loaded with plavix 03/07, started 75mg 03/08, continue aspirin, statin replace electrolytes as needed Sliding scale insulin, adjust as needed small nodular opacitiy overlying right mid-lung, could represent lung nodule vs lesions within the right seventh posterior rib. recommend CT follow up in a few months R testicle tender, scrotal swelling. UA with +bacteria. started empiric levaquin 03/08; reviewed QtC: > 500 Scrotal U/S concern for epididymitis Urine: proteus, enterobacter; change to bactrim DVT PPX: lovenox Code status: Full Dispo: home, ~2-3 days likely will need home O2; apparently needed / had O2 at home in [place]
[2022-03-09] MEDS: INSULIN -REGULAR HUMAN 50 UNIT/0.5 ML ML SQ SCH ×4 (07:30→21:00)
[2022-03-09] MEDS ORDERED: MAGNESIUM SULFATE 1 gm IVPB 1 GM/100 ML BAG IV ONE (08:00)
[2022-03-09] MEDS: CLOPIDOGREL 75 MG TABLET PO SCH (08:33)
[2022-03-09] MEDS: levoFLOXacin 500 MG TAB PO SCH (08:33)
[2022-03-09] MEDS: ASPIRIN EC 81 MG TAB PO SCH (08:33)
[2022-03-09] MEDS: ATORVASTATIN 80 MG TAB PO SCH (08:33)
[2022-03-09] MEDS: NPH (HUMAN) 100 UNITS/ML INSULIN SQ SCH ×2 (08:34→17:05)
[2022-03-09] MEDS: SACUBITRIL/VALSARTAN 24/26 MG TAB PO SCH ×2 (08:34→22:04)
[2022-03-09] MEDS: AMIODARONE HCL 200 MG TAB PO SCH ×2 (08:34→22:05)
[2022-03-09] MEDS ORDERED: POTASSIUM CL SA 10 MEQ TAB PO ONE (09:00)
--- NOTE | 2022-03-09 11:51 | P.CNS ---
Date of Consult: 03/09/22 Chief Complaint: CHF exacerbation History of Present Illness: The patient is a 71 year old male with a PMH of CHF with pacemaker/defibrillator, CAD, DM, HTN, and HLD who presented to the ED secondary to right scrotal swelling, lower extremity swelling, and SOB. He states he hasn't been taking his Lasix for about three weeks. He was noted to have 3-4 plus pitting edema on admission. Tropnonis and BNP elevated on admission. CXR showed pulmonary congestion and small right lung nodular opacity. UC grew Proteus vulgaris and Enterobacter cloace. Scrotal US showed prominent right epididymis with right sided hydrocele. Patient currently denies N/V/D, SOB, or chest pain. ID has been consulted to manage patients antibiotic regimen. Allergies No Known Allergies Allergy (Verified 03/07/22 00:07) Home Medications: Atorvastatin Calcium [Lipitor] 80 mg PO DAILY 11/03/21 Furosemide [Lasix] 40 mg PO DAILY 6PM 11/03/21 Furosemide [Lasix] 80 mg PO BREAKFAST 11/03/21 Glipizide [Glipizide ER] 5 mg PO BID 11/03/21 Metformin ER [Glucophage ER*] 500 mg PO BID 11/03/21 NPH, Human Insulin Isophane [Humulin N] 14 units IN DAILY 11/03/21 Terazosin HCl 10 mg PO BEDTIME PRN 11/03/21 Terazosin HCl [Hytrin] 10 mg PO BEDTIME 11/03/21 bisoproloL fumarate [Zebeta*] 5 mg PO DAILY 11/03/21 Amiodarone HCl [Cordarone*] 400 mg PO BID #72 tab 11/05/21 Sacubitril/Valsartan [Entresto 24 mg-26 mg Tablet] 1 tab PO BID tab 11/05/21 - Past Medical/Surgical History Diabetic: No -: HTN -: HLD -: DM insulin-dependent -: CAD -: myocardial infarcation -: CHF/systolic -: pacemaker/defibrillator -: cardiac stent x2 -: lumbar laminectomy -: cervical spine surgery Psychosocial/ Personal History: Patient lives at home, alone - Social History Alcohol use: No CD- Drugs: No Caffeine use: Yes Place of Residence: Home Review of Systems 10-point ROS is otherwise unremarkable Physical Examination Temp Pulse Resp BP Pulse Ox 97.6 F 60 18 120/78 95 03/09/22 08:20 03/09/22 08:20 03/09/22 08:20 03/09/22 08:20 03/09/22 08:20 General: Alert, In no apparent distress, Obese HEENT: Atraumatic, Normocephalic Neck: No Thyromegaly, Other (bilateral lower extremity edema. Scortal edema R>L) Respiratory: Diminished Cardiovascular: Regular rate/rhythm, Edema (bilateral lower extremity edema. Scortal edema R>L) Capillary refill: <2 Seconds Gastrointestinal: Normal bowel sounds, Distended (dull to percussion ) Integumentary: No rashes, No breakdown, No significant lesion External genitalia: Tenderness, Other (scortal edema R>L) Laboratory Data (last 24 hrs) 03/09/22 05:24: Sodium 141, Potassium 3.5, BUN 15, Creatinine 1.14, Glucose 86, Magnesium 1.8, Total Bilirubin 0.6, AST 13 L, ALT 13, Alkaline Phosphatase 133 H 03/09/22 05:24: WBC 6.2, Hgb 11.8 L, Hct 38.3 L, Plt Count 138 L 03/08/22 15:54: Potassium 3.4 L Conclusions/Impression: Antibiotics: Bactrim: 03/09-current Assessment/Plan UTI with right sided epididymitis -UC grew Enterobacter cloace and Proteus vulgaris both sensitive to Bactrim. Recommend treated for 4 weeks with f/u with urology. -no clinical concern or STDs - recommend to keep scrotum elevated. NSAIDs and ice for pain. CHF, CAD, NSTEMI, DM -medical management per primary team Plan of care discussed with Dr. Dc Thank you for consultation
[2022-03-09] MEDS: SMZ./TMP. 800/160 MG TABLET PO SCH ×2 (12:13→22:04)
--- NOTE | 2022-03-09 19:41 | PN ---
Date of Progress Note: 03/09/2022 Subjective: Seen by bedside, is improving slowly. Review of Systems: No chest pain or orthopnea, shortness of breath on exertion, or lower extremity edema. No nausea, vo miting, diarrhea. All other systems reviewed are negative. Physical Examination: Vital Signs: Reviewed. Head and Neck: Pupils are equal and reactive to light. Intact eye movements. Positive JVD. No cer vical lymphadenopathy. Neck: Supple. Thyroid is not enlarged. Lungs: Clear to auscultation with decreased breathing sounds. No accessory muscle use or muscle ret raction. Heart: Irregular. No extra sounds. Abdomen: Soft, nontender. Bowel sounds positive. No organomegaly. No masses or hernia. No rigidi ty or rebound.. Extremities: No clubbing, cyanosis. Intact pulses. Skin: No rashes. Neurologic: Alert, awake, oriented x3. No acute focal deficits appreciated. Investigations: BUN 15, creatinine 1.14. Assessment And Plan: 1.Acute on chronic systolic heart failure. He is gradually diuresing and getting slowly better. Co ntinue current management. Monitor urine output and fluid intake and also daily body weight to evalu ate the need for further diuresis. Might consider adding metolazone 5 mg daily is needed prior to th e Lasix dose. 2.Coronary artery disease, borderline troponin due to demand. We will monitor and plan for outpatie nt stress test. SR/MODL Voice ID: [id number] Report ID: [id number]
[2022-03-10] MEDS: FUROSEMIDE 40 MG/4 ML VIAL IV SCH ×4 (00:47→23:59)
[2022-03-10 05:46] LABS: Lymphocytes % 19.8 % (15.3-44.8); MPV 9.4 fL (7.6-11.3); RBC Red Blood Cell Count 4.79 M/uL (4.33-5.43)
[2022-03-10 06:05] LABS: Albumin 2.8 g/dL (3.4-5.0); Bilirubin Total 0.7 mg/dL (0.2-1.0); Magnesium 1.8 mg/dL (1.8-2.4); Potassium 3.6 mmol/L (3.5-5.1); Protein, Total 6.3 g/dL (6.4-8.2)
[2022-03-10] MEDS: INSULIN -REGULAR HUMAN 50 UNIT/0.5 ML ML SQ SCH ×4 (07:30→21:00)
[2022-03-10] MEDS: NPH (HUMAN) 100 UNITS/ML INSULIN SQ SCH ×2 (08:43→16:47)
[2022-03-10] MEDS: AMIODARONE HCL 200 MG TAB PO SCH ×2 (08:44→21:35)
[2022-03-10] MEDS: ATORVASTATIN 80 MG TAB PO SCH (08:44)
[2022-03-10] MEDS: ASPIRIN EC 81 MG TAB PO SCH (08:44)
[2022-03-10] MEDS: SACUBITRIL/VALSARTAN 24/26 MG TAB PO SCH ×2 (08:44→21:35)
[2022-03-10] MEDS: SMZ./TMP. 800/160 MG TABLET PO SCH ×2 (08:44→21:35)
[2022-03-10] MEDS: CLOPIDOGREL 75 MG TABLET PO SCH (08:45)
[2022-03-10] MEDS ORDERED: MAGNESIUM SULFATE 1 gm IVPB 1 GM/100 ML BAG IV ONE (09:00)
[2022-03-10] MEDS ORDERED: POTASSIUM CL SA 10 MEQ TAB PO ONE (09:00)
--- NOTE | 2022-03-10 10:37 | P.PN ---
Subjective Date of Service: 03/10/22 Chief Complaint: CHF exacerbation Patient seen and examined at bedside, tolerating antibiotics well with no N/V/D. Scrotal pain relieved with elevation. Review of Systems 10-point ROS is otherwise unremarkable Physical Examination - Vital Signs Temperature: 97.8 F Blood Pressure: 122/68 Pulse: 60 Respirations: 16 Pulse Ox (%): 96 - Studies Laboratory Data (last 24 hrs) 03/10/22 05:30: Sodium 139, Potassium 3.6, BUN 16, Creatinine 1.19, Glucose 182 H, Magnesium 1.8, Total Bilirubin 0.7, AST 13 L, ALT 12, Alkaline Phosphatase 119 H 03/10/22 05:30: WBC 5.1 D, Hgb 11.8 L, Hct 39.0 L, Plt Count 132 L Microbiology Data (last 24 hrs): 03/07/22 03:48 Wound - L Leg (Lower) Gram Stain - Final 03/07/22 03:48 Wound - L Leg (Lower) Culture & Sensitivity - Final 03/07/22 04:06 Clean Catch Urine [place] Count - Final BETWEEN 10,000 & 100,000 CFU/ML 03/07/22 04:06 Clean Catch Urine - Final Enterobacter Cloacae Proteus Vulgaris Assessment And Plan - Plan Physical Exam: General: Alert, In no apparent distress, Obese HEENT: Atraumatic, Normocephalic Neck: No Thyromegaly, Respiratory: Diminished Cardiovascular: Regular rate/rhythm, Edema (bilateral lower extremity edema. Scortal edema R>L) Capillary refill: <2 Seconds Gastrointestinal: Normal bowel sounds, Distended (dull to percussion ) Integumentary: No rashes, No breakdown, No significant lesion External genitalia: Tenderness, Other (scortal edema R>L) Conclusions/Impression: Antibiotics: Bactrim: 03/09-current Assessment/Plan UTI with right sided epididymitis -UC grew Enterobacter cloace and Proteus vulgaris both sensitive to Bactrim. Recommend treated for 4 weeks with f/u with urology. -no clinical concern or STDs - recommend to keep scrotum elevated. NSAIDs and ice for pain. CHF, CAD, NSTEMI, DM -medical management per primary team
--- NOTE | 2022-03-10 13:22 | PN ---
Date of Progress Note: 03/10/2022 Mr. Boudreaux was admitted with congestive heart failure with ejection fraction of 43%. Has a history of pacemaker, diabetes, coronary artery disease, status post PCI of the LAD and circumflex. Has hyp ertension, paroxysmal atrial fibrillation, and dyslipidemia. Today, he is not having any complaint. He is feeling better, but he is still significantly edematous with some rales on physical examinatio n. He is presently on amiodarone, aspirin, Plavix, Lipitor, Lovenox, insulin, antibiotic and Entrest o. We will continue present regimen, diurese him more and looks like send him home tomorrow. We ana maría l see him in the office as an outpatient. MICHELLE/[place] Voice ID: [id number] Report ID: [id number]
--- NOTE | 2022-03-10 16:21 | P.PN ---
Subjective Date of Service: 03/10/22 Chief Complaint: CHF exacerbation Patient reports feeling much better today. He states that he had a bowel movement. He denies shortness of breath. Physical Examination - Vital Signs Temperature: 97.7 F Blood Pressure: 120/60 Pulse: 63 Respirations: 16 Pulse Ox (%): 99 - Studies Laboratory Data (last 24 hrs) 03/10/22 05:30: Sodium 139, Potassium 3.6, BUN 16, Creatinine 1.19, Glucose 182 H, Magnesium 1.8, Total Bilirubin 0.7, AST 13 L, ALT 12, Alkaline Phosphatase 119 H 03/10/22 05:30: WBC 5.1 D, Hgb 11.8 L, Hct 39.0 L, Plt Count 132 L Assessment And Plan - Plan Physical exam GEN: Alert, oriented, NAD HEENT: Normal conjunctiva, sclera anicteric CV: Regular rate and rhythm, 2-3+ pitting edema b/l lower extremities, +scrotal edema Pulm: b/l crackles, diminished at bases bilaterally. Nonlabored breathing. ABD: Soft, nontender, nondistended Neuro: Normal speech, normal affect : scrotal edema, +tender R testicle Problem List NSTEMI, suspect demand ischemia Acute on chronic systolic congestive heart failure S/P pacemaker/defibrillator Acute on chronic respiratory failure with hypoxia Scrotal / testicular pain -epididymitis History CAD Hypokalemia Diabetes mellitus type 2insulin-dependent Hypertension Incidental finding/pulmonary nodule on chest x-ray Patient in acute CHF - continue aggressive diuresis, continue Lasix 40 mg every 8 IV Cardiology is following and assisting with management Troponins trended flat, suspect due to demand ischemia in the setting of acute CHF recent cath ~3 months ago with stent placement; unsure if has been taking plavix as directed loaded with plavix 03/07, started 75mg 03/08, continue aspirin, statin Monitor and replete electrolytes as needed. Keep potassium level around 4 given history of A. fib and Olgive Syndrome. Continue amiodarone. Sliding scale insulin. small nodular opacitiy overlying right mid-lung, could represent lung nodule vs lesions within the right seventh posterior rib. recommend CT follow up in a few months R testicle tender, scrotal swelling. UA with +bacteria. started empiric levaquin 03/08, Scrotal U/S concern for epididymitis Urine: proteus, enterobacter. Antibiotics changed to oral Bactrim. Arrange for home oxygen. DVT PPX: lovenox Code status: Full
[2022-03-11 05:34] LABS: Hematocrit 37.8 % (39.6-49.0); Lymphocytes % 18.9 % (15.3-44.8); MPV 9.2 fL (7.6-11.3); RBC Red Blood Cell Count 4.64 M/uL (4.33-5.43)
[2022-03-11 05:45] LABS: Potassium 3.8 mmol/L (3.5-5.1)
[2022-03-11 08:23] VITALS: O2SAT 98
[2022-03-11] MEDS: NPH (HUMAN) 100 UNITS/ML INSULIN SQ SCH (08:47)
[2022-03-11] MEDS: FUROSEMIDE 40 MG/4 ML VIAL IV SCH (08:48)
[2022-03-11] MEDS: AMIODARONE HCL 200 MG TAB PO SCH (08:48)
[2022-03-11] MEDS: CLOPIDOGREL 75 MG TABLET PO SCH (08:48)
[2022-03-11] MEDS: SACUBITRIL/VALSARTAN 24/26 MG TAB PO SCH (08:48)
[2022-03-11] MEDS: SMZ./TMP. 800/160 MG TABLET PO SCH (08:48)
[2022-03-11] MEDS: ASPIRIN EC 81 MG TAB PO SCH (08:49)
[2022-03-11] MEDS: ATORVASTATIN 80 MG TAB PO SCH (08:49)
[2022-03-11] MEDS ORDERED: POTASSIUM CL SA 10 MEQ TAB PO ONE (09:00)
[2022-03-11] MEDS ORDERED: MAGNESIUM SULFATE 1 gm IVPB 1 GM/100 ML BAG IV ONE (09:00)
[2022-03-11] MEDS: INSULIN -REGULAR HUMAN 50 UNIT/0.5 ML ML SQ SCH ×2 (09:01→11:30)
--- NOTE | 2022-03-11 11:10 | P.DS ---
Admission Date: 03/06/22 Discharge Date: 03/11/22 Reason for Admission: CHF exacerbation Brief History of Present Illness: 71-year-old male with history of chronic systolic congestive heart failure with pacemaker/defibrillator , CAD, diabetes type 2insulin-dependent, hypertension, hyperlipidemia presented to outside hospital emergency department for shortness of breath and swelling of the lower extremities, he reports he has been out of his Lasix for the last 3 weeks. He was noted to have 3-4+ pitting edema bilateral lower extremities and his labs were significant for a potassium of 2.9, elevated BNP, high-sensitivity troponin 166.1. Chest x-ray showed pulmonary vascular congestion and diffuse interstitial prominence of suggestive of edema. Also noted small nodular opacity overlying right midlung which could represent lung nodule versus lesion within the right seventh posterior rib. CT chest follow-up following clinical resolution of edema may be performed. Patient had CT scan of his head which was negative for any acute findings. The ED provider discussed case with cardiology here who accepted patient recommended to be admitted to the hospital service. Hospital Course: Diagnosis NSTEMI, suspect demand ischemia Acute on chronic systolic congestive heart failure S/P pacemaker/defibrillator Acute on chronic respiratory failure with hypoxia Scrotal / testicular pain -epididymitis History CAD Hypokalemia Diabetes mellitus type 2insulin-dependent Hypertension Incidental finding/pulmonary nodule on chest x-ray Hospital course Patient admitted to the medical floor with a diagnosis of acute CHF. He was treated with IV Lasix. Cardiology consulted Patient seen by Dr. Aaron who assisted with management. His troponins trended flat, suspect due to demand ischemia in the setting of acute CHF Patient had recent cath ~3 months ago with stent placement; he was placed on aspirin and Plavix and statins Continued amiodarone. Atrial fibrillation was rate controlled. Patient also has a history of Olgive syndrome but was having regular bowel movement. Ssmall nodular opacitiy overlying right mid-lung, could represent lung nodule vs lesions within the right seventh posterior rib. He will need CT follow up in a few months He was complaining of scrotal swelling and pain in the right testicle. UA with +bacteria. Treated empirically with Levaquin initially. Scrotal U/S was concerning for epididymitis Urine: proteus, enterobacter. Antibiotics changed to oral Bactrim. He was seen by ID who assisted with management. Patient prescribed oral Bactrim. Patient with a history of chronic respiratory failure on 4 L of oxygen by nasal cannula at baseline. Home oxygen was arranged for him. He has clinically improved, tolerating his baseline oxygen, eating well and ambulating. Patient is deemed stable for discharge. Lasix dose increased from 120 mg/day to 160 mg/day. Vital Signs/Physical Exam: Temp Pulse Resp BP Pulse Ox 98.0 F 72 18 132/69 95 03/11/22 08:00 03/11/22 08:00 03/11/22 08:00 03/11/22 08:00 03/11/22 08:00 General: Alert, In no apparent distress, Oriented x3, Obese HEENT: Mucous membr. moist/pink, Sclerae nonicteric Neck: Supple, JVD not distended Respiratory: Clear to auscultation bilaterally, Normal air movement Cardiovascular: Normal S1 S2, Edema (1+ bilateral lower extremity edema), Irregular heart rate/rhythm Gastrointestinal: Normal bowel sounds, Soft and benign, Non-distended, No tenderness Integumentary: Other (Bilateral venous stasis dermatitis) Neurological: Normal strength at 5/5 x4 extr Laboratory Data at Discharge: WBC 5.5 K/uL (4.3-10.9) 03/11/22 05:04 Hgb 11.4 g/dL (13.6-17.9) L 03/11/22 05:04 Hct 37.8 % (39.6-49.0) L 03/11/22 05:04 Plt Count 142 K/uL (152-406) L 03/11/22 05:04 Sodium 142 mmol/L (136-145) 03/11/22 05:04 Potassium 3.8 mmol/L (3.5-5.1) 03/11/22 05:04 BUN 13 mg/dL (7-18) 03/11/22 05:04 Creatinine 1.18 mg/dL (0.55-1.3) 03/11/22 05:04 Glucose 114 mg/dL (74-106) H 03/11/22 05:04 Magnesium 1.8 mg/dL (1.8-2.4) 03/11/22 05:04 Total Bilirubin 0.7 mg/dL (0.2-1.0) 03/10/22 05:30 AST 13 U/L (15-37) L 03/10/22 05:30 ALT 12 U/L (12-78) 03/10/22 05:30 Alkaline Phosphatase 119 U/L (45-117) H 03/10/22 05:30 Home Medications: Atorvastatin Calcium [Lipitor] 80 mg PO DAILY 11/03/21 Metformin ER [Glucophage ER*] 500 mg PO BID 11/03/21 bisoproloL fumarate [Zebeta*] 5 mg PO DAILY 11/03/21 Amiodarone HCl [Cordarone*] 400 mg PO BID #72 tab 11/05/21 Sacubitril/Valsartan [Entresto 24 mg-26 mg Tablet] 1 tab PO BID tab 11/05/21 Aspirin [Aspirin EC 81 MG] 81 mg PO DAILY #30 tablet. 03/11/22 Clopidogrel Bisulfate [Plavix*] 75 mg PO DAILY #30 tablet 03/11/22 Fluticasone [Flonase 50MCG Nasal [place]*] 0 sprays YUE DAILY PRN #1 btl 03/11/22 Furosemide [Lasix] 80 mg PO BID #60 03/11/22 Insulin NPH Human [Novolin N (Humulin N)*] 10 units SQ BIDWM #10 ml 03/11/22 Smz./Tmp. [Bactrim Ds 800 MG/160 MG*] 1 tab PO BID #14 tab 03/11/22 New Medications: Aspirin [Aspirin EC 81 MG] 81 mg PO DAILY #30 tablet. Smz./Tmp. [Bactrim Ds 800 MG/160 MG*] 1 tab PO BID #14 tab Fluticasone [Flonase 50MCG Nasal [place]*] 0 sprays YUE DAILY PRN #1 btl PRN Reason: Nasal Congestion Furosemide [Lasix] 80 mg PO BID #60 Insulin NPH Human [Novolin N (Humulin N)*] 10 units SQ BIDWM #10 ml Clopidogrel Bisulfate [Plavix*] 75 mg PO DAILY #30 tablet Physician Discharge Instructions: You will need a CT scan of your chest to follow up a lung nodule. 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
[2022-03-11 12:17] VITALS: BP 99/56; TEMP 97.4
--- NOTE | 2022-03-11 12:20 | P.PN ---
Subjective Date of Service: 03/11/22 Chief Complaint: CHF exacerbation Patient seen and examined at bedside, no acute events. Review of Systems 10-point ROS is otherwise unremarkable Physical Examination - Vital Signs Temperature: 97.4 F Blood Pressure: 99/56 Pulse: 60 Respirations: 20 Pulse Ox (%): 96 - Studies Laboratory Data (last 24 hrs) 03/11/22 05:04: Magnesium 1.8 03/11/22 05:04: Sodium 142, Potassium 3.8, BUN 13, Creatinine 1.18, Glucose 114 H 03/11/22 05:04: WBC 5.5, Hgb 11.4 L, Hct 37.8 L, Plt Count 142 L Assessment And Plan - Plan Physical Exam: General: Alert, In no apparent distress, Obese HEENT: Atraumatic, Normocephalic Neck: No Thyromegaly, Respiratory: Diminished Cardiovascular: Regular rate/rhythm, Edema (bilateral lower extremity edema. Scortal edema R>L) Capillary refill: <2 Seconds Gastrointestinal: Normal bowel sounds, Distended (dull to percussion ) Integumentary: No rashes, No breakdown, No significant lesion External genitalia: Tenderness, Other (scortal edema R>L) Conclusions/Impression: Antibiotics: Bactrim: 03/09-current Assessment/Plan UTI with right sided epididymitis -UC grew Enterobacter cloace and Proteus vulgaris both sensitive to Bactrim. Recommend treated for 4 weeks with f/u with urology. -no clinical concern or STDs - recommend to keep scrotum elevated. NSAIDs and ice for pain. CHF, CAD, NSTEMI, DM -medical management per primary team
== END 2022-03-11 16:00 | disposition home or self-care (01) | DRG 280 ==
LOC: UNDOADMIN 22:52 → 2ND 22:52
PROVIDERS: ADMIT Hospitalist; ATTEND Hospitalist
DX: I11.0 Hypertensive heart disease with heart failure (principal); I50.23 Acute on chronic systolic (congestive) heart failure; I21.A1 Myocardial infarction type 2; J96.21 Acute and chronic respiratory failure with hypoxia; N39.0 Urinary tract infection, site not specified; N45.1 Epididymitis; B96.4 Proteus (mirabilis) (morganii) as the cause of diseases classified elsewhere; B96.89 Other specified bacterial agents as the cause of diseases classified elsewhere; E87.6 Hypokalemia; R91.1 Solitary pulmonary nodule; I25.10 Atherosclerotic heart disease of native coronary artery without angina pectoris; E11.9 Type 2 diabetes mellitus without complications; K59.81 Ogilvie syndrome; E66.9 Obesity, unspecified; Z68.36 Body mass index [BMI] 36.0-36.9, adult; I48.0 Paroxysmal atrial fibrillation; E78.5 Hyperlipidemia, unspecified; Z95.810 Presence of automatic (implantable) cardiac defibrillator; Z95.5 Presence of coronary angioplasty implant and graft
CPT/HCPCS: 36415; 71045; 76870; 80048; 80053; 81003; 81015; 82947; 83735; 84132; 84484; 85025; 87070; 87077; 87086; 87088; 87186; 87205; J1650; J1815; J1940; J3475; J3490

== ENCOUNTER 2022-03-24 17:31 | Inpatient (IN) | payer OTHER ==
--- OUTSIDE RECORDS SUMMARY | 2022-03-24 17:34 | XMS REPORT | Continuity of Care Document ---
:1950 Author Organization [facility] t Address [address] [place] [address] Care Team Providers Name Role Phone Marisela [...] [facility] 3-15 Clear s 00:00: [address] No Known DA Active [facility] 1-20 Clear s 00:00: [address] Medications This patient has no known medications. Procedures Procedure Date / Time Performed Performing Clinician Chintan velasco [id number] 2021-10-31 00:00:00 [facility] [id number] 2021-10-31 00:00:00 [facility] [id number] 2021-10-30 [facility] Start End Encounter Admission Attending Care Care Encounter Source Date/Time Date/Time Type Type Clinicians Facility Department ID 2021-12-23 Inpatient MARIAM Antonio OUTD [id number] [facility] 09:30:00 Jorge [facility] 2021-11-24 Inpatient MARIAM Antonio OUTD [id number] [facility] 09:30:00 Jorge [facility] 2021-12-24 2021-12-24 Outpatient EL Marisela, JANETHCL [facility] [id number] [facility] 05:20:00 05:20:00 Jorge [address] [facility] 2021-12-24 2021-12-24 Outpatient TO Antonio, [facility]L [facility] [id number] [facility] 05:20:00 05:20:00 Jorge 67 [facility] 2021-11-26 2021-11-26 Outpatient EL Marisela, HCACL [facility] [id number] [facility] 05:19:00 05:19:00 Jorge [facility] 2021-11-26 2021-11-26 Outpatient TO Antonio, HCACL [facility] [id number] [facility] 05:19:00 05:19:00 Jorge 76 [facility] 2021-10-31 2021-11-01 Inpatient EM Kinjal, HCAMN TELE [id number] [facility] 16:03:00 10:24:[address] [facility] 2021-10-31 2021-11-01 Inpatient EM Kinjal, [facility] TELE [id number] [facility] 16:03:00 10:24:[address] [facility] 2021-10-30 2021-10-30 Inpatient EM Miracle, [facility] TELE [id number] [facility] 16:12:00 16:11:[address] [facility] Results Test Description Test Time Test [...] CA) 8.7 mg/dL 8.0-10.5 N CBC W/AUTO [id number] 16:03:00 Test Item Value Reference Range Interpretation [...] REQUIRED (test code NO = MDIFF) GLUCOSE [id number] 13:59:00 Test Item Value Reference Range Interpretation Comments GLUCOSE BEDSIDE (test 127 MG/DL 70-110 H Perfor med by certified code = GLUBED) continuous dryout operator helper at [place] [id number] 13:39:00 Test Item Value Reference Range Interpretation Comments ACT-ISTAT (test code 279 SEC 74-137 H Perform ed by certified = ACTI) continuous dryout operator helper at [place] [id number] 13:29:00 Test Item Value Reference Range Interpretation Comments ACT-ISTAT (test code 243 SEC 74-137 H Perform ed by certified = ACTI) continuous dryout operator helper at [place] [id number] 13:07:00 Test Item Value Reference Range Interpretation Comments ACT-ISTAT (test code 327 SEC 74-137 H Perform ed by certified = ACTI) continuous dryout operator helper at [facility] GLUCOSE [id number] 10:34:00 Test Item Value Reference Range Interpretation Comments GLUCOSE BEDSIDE (test 154 MG/DL 70-110 H Perfor med by certified code = GLUBED) continuous dryout operator helper at [facility] BASIC METABOLIC [id number] 12:01:00 Test Item Value Reference Range Interpretation [...] = 9.1 mg/dL 8.0-10.5 N CA) PROTHROMBIN [id number] 11:36:00 Test Item Value Reference Range Interpretation [...] o prevent recurre nt infarct). CBC W/AUTO [id number] 11:35:00 Test Item Value Reference Range Interpretation [...] (test code NO = MDIFF) BASIC METABOLIC [id number] 11:41:00 Test Item Value Reference Range Interpretation [...] 8.2 mg/dL 8.0-10.5 N CA) CBC W/AUTO [id number] 11:19:00 Test Item Value Reference Range Interpretation [...] 0.00 x10 3/uL 0.0-0.1 N NRBC#) GLUCOSE [id number] 09:23:00 Test Item Value Reference Range Interpretation Comments GLUCOSE BEDSIDE (test 108 MG/DL 70-110 N Perfor med by certified code = GLUBED) continuous dryout operator helper at [facility] [id number] 08:44:00 Test Item Value Reference Range Interpretation Comments ACT-ISTAT (test code 273 SEC 74-137 H Perform ed by certified = ACTI) continuous dryout operator helper at [facility] BASIC METABOLIC [id number] 08:38:00 Test Item Value Reference Range Interpretation [...] code = 8.3 mg/dL 8.0-10.5 N CA) [id number] 08:22:00 Test Item Value Reference Range Interpretation Comments ACT-ISTAT (test code 303 SEC 74-137 H Perform ed by certified = ACTI) continuous dryout operator helper at [facility] GLUCOSE [id number] 06:14:00 Test Item Value Reference Range Interpretation Comments GLUCOSE BEDSIDE (test 115 MG/DL 70-110 H Perfor med by certified code = GLUBED) continuous dryout operator helper at [facility] BASIC METABOLIC [id number] 11:09:00 Test Item Value Reference Range Interpretation Comments SODIUM (test code = NA) 144 mEq/L 134-147 N POTASSIUM (test code = 2.9 mEq/L 3.4-5.0 LL Criti kathie result K) called to SAMMI BOB/August Sotomayor G.LAB.LS at 110 2 11/24/21Ncoreen fiscehr back resut and tech confirmed it's correct? [...] = 8.1 mg/dL 8.0-10.5 N CA) PROTHROMBIN [id number] 10:36:00 Test Item Value Reference Range Interpretation [...] o prevent recurre nt infarct). CBC W/AUTO [id number] 10:21:00 Test Item Value Reference Range Interpretation [...] = 0.00 x10 3/uL 0.0-0.1 N NRBC#) [id number] 14:18:00 Test Item Value Reference Range Interpretation Comments GLUBED (test code = GLUBED) 167 mg/dL 70-110 H [id number] 14:17:00 Test Item Value Reference Range Interpretation Comments GLUBED (test code = GLUBED) 117 mg/dL 70-110 H [id number] 07:34:00 Test Item Value Reference Range Interpretation Comments GLUBED (test code = GLUBED) 215 mg/dL 70-110 H CBC W/AUTO [id number] 06:26:00 Test Item Value Reference Range Interpretation [...] X10 3uL 0.00-0.01 N NRBC#) BASIC METABOLIC [id number] 06:17:00 Test Item Value Reference Range Interpretation [...] code = CA) 8.6 mg/dl 8.0-10.5 N [id number] 07:26:00 Test Item Value Reference Range Interpretation Comments TROPONIN-I (test 0.63 NG/ML 0.00-0.06 HH REFERENCE R XAVIER TROPONIN code = TROPI) I HEALTHY PERNELL VIDUALS: <0.06 ng/mL R/O ISCHEMIA: 0.07 - 0.60 ng/mL CUT-OFF R XAVIER FOR AMI: 0.60 - 1. 5 ng/mL [id number] 06:10:00 Test Item Value Reference Range Interpretation Comments GLUBED (test code = GLUBED) 115 mg/dL 70-110 H [id number] 04:17:00 Test Item Value Reference Range Interpretation Comments TROPONIN-I (test 0.59 NG/ML 0.00-0.06 HH REFERENCE R XAVIER TROPONIN code = TROPI) I HEALTHY PERNELL VIDUALS: <0.06 ng/mL R/O ISCHEMIA: 0.07 - 0.60 ng/mL CUT-OFF R XAVIER FOR AMI: 0.60 - 1. 5 ng/mL [id number] 22:52:00 Test Item Value Reference Range Interpretation Comments TROPONIN-I (test 0.43 NG/ML 0.00-0.06 H REFERENCE R XAVIER TROPONIN code = TROPI) I HEALTHY PERNELL VIDUALS: <0.06 ng/mL R/O ISCHEMIA: 0.07 - 0.60 ng/mL CUT-OFF R XAVIER FOR AMI: 0.60 - 1. 5 ng/mL BASIC METABOLIC [id number] 17:55:00 Test Item Value Reference Range Interpretation [...] CA) 8.5 mg/dl 8.0-10.5 N B-TYPE NATRIURETIC [id number] 17:55:00 Test Item Value Reference Range Interpretation Comments B-TYPE NATRIURETIC PEPTIDE (test 670 PG/ML 5-100 H code = BNP) [id number] 17:55:00 Test Item Value Reference Range Interpretation Comments TROPONIN-I (test 0.04 NG/ML 0.00-0.06 N REFERENCE R XAVIER TROPONIN code = TROPI) I HEALTHY PERNELL VIDUALS: <0.06 ng/mL R/O ISCHEMIA: 0.07 - 0.60 ng/mL CUT-OFF R XAVIER FOR AMI: 0.60 - 1. 5 ng/mL [id number] 17:52:00 Test Item Value Reference Range Interpretation Comments GLUBED (test code = GLUBED) 117 mg/dL 70-110 H COVID 19 Asymptomatic IH [id number] 17:49:00 Test Item Value Reference Range Interpretation Comments COVID 19 NEGATIVE NEGATIVE Negative result s should be Asymptomatic IH AG treated a s presumptive and (test code = ifinconsistent with COVNONPUIAG) clinical signs and symptoms, or ne cessaryfor patient managem ent, should be tested with an alternativemole cular assay. Negative results do not preclude [id number] tion and should not be u sed as the sole basis forp atient management deci sions. Negative result s should beconsidered in the context of a pa tient's recent exposure s,history, presence of cli nical signs and symptoms consistentwith COVID-19. PROTHROMBIN [id number] 17:20:00 Test Item Value Reference Range Interpretation Comments PROTHROMBIN TIME 15.1 SECONDS 9.9-12.8 H PATIENT (test code = PTP) INTERNATIONAL NORMAL 1.3 0.89-1.14 H THE INR IS TO BE USED RATIO (test code = ONLY FOR MONITORING INR) ORAL ANTICOAGULANTTH ERAPY. THE FOLLOWING A RE SUGGESTED RANGE S [facility]:PERNELL CATION INR VALUEPROPHYLAXI S OF VENOUS THROMBOS IS (ORTHOPEDIC AIDAN MAIN) 2.0 - 3.0PROP HYLAXIS OF VENOUS THROM BOSIS (OTHER THAN HIG H-RISK SURGERY) 2.0 - 3.0TRE ATMENT OF DEEP VEIN THROMBOSIS OR PULMONARY EMBOL ISM 2.0 - 3.0PREV ENTION OF SYSTEMIC EMB OLISM TISSUE HEART VA LVES 2.0 - 3.0 AC [place] MYOCARDIAL INFA RCTION (TO PREVENT SYSTEMIC EMBOLI [...] - 3 .5 Specimen comments: .CBC W/AUTO [id number] 17:09:00 Test Item Value Reference Range Interpretation [...] code = 0.00 X10 3uL 0.00-0.01 N [facility]#) - XR CHEST 1 [id number] 16:43:00 [facility] : 1950 Sex: M FAX: Shara Jackman MD [phone] [place]: St: PRE Name: RENÉELLE [facility] : 1950 Age/S: 71/M [address] [facility] Unit #: [id number] Loc: [place], [place] Phys: [place] [id number] Acct: [id number] Dis Date: Status: PRE ER PHONE #: [phone] Exam Date: 10/30/2021 1642 FAX #: [phone] Reason: SOB EXAMS: CPT CODE: [id number] XR CHEST 1 V 43777 EXAMINATION: - XR CHEST 1 V. LOCATION:B2. HISTORY: SOB. COMPARISON: None. TECHNIQUE: Single AP view of the chest was obtained. FINDINGS: The heart is enlarged in size. Left AICD device is present. There is mild prominence of the central pulmonary vasculature. No acute osseous abnormality is identified. IMPRESSION: Cardiomegaly with mild central pulmonary congestion. [id number] Reported and signed by: Rupal Gunter M.D. CC: Shara Jackman MD Technologist: JJ GIRALDO Trnscrd Date/Time/By: 10/30/2021 (1642) : By: [email or web address] PAGE 1 Sig rosaline Report FAX: Shara Jackman MD [phone] [place]: St: PRE -- Name: ELLE MERRITT [facility] : 1950 Age/S: 71/M [address] [facility] Unit #: [id number] Loc: [place], [place] Phys: [place] [id number] Acct: [id number] Dis Date: Status: PRE ER PHONE #: [phone] Date: 10/30/20211641 FAX #: [phone] Reason: SOB EXAMS: CPT CODE: [id number] XR CHEST 1 V 37906 <Continued> Orig Print D/T: S: 10/30/2021 (9791) PAGE 2 Signed Report
--- NOTE | 2022-03-24 18:42 | RAD REPORT ---
EXAM DESCRIPTION: Javier Single View03/24/2022 6:31 pm CLINICAL HISTORY: Chest pain COMPARISON: February 2022 FINDINGS: Mild bilateral interstitial lung opacities. The heart is moderately enlarged Pacemaker leads are in place. IMPRESSION: These findings probably indicate mild CHF
[2022-03-24 19:05] LABS: Absolute Lymphocytes (CBC) 0.7 K/uL (0.7-4.9); Hematocrit 37.7 % (39.6-49.0); Lymphocytes % 10.2 % (15.3-44.8); Protime INR 1.37
[2022-03-24 19:18] LABS: Potassium 3.5 mmol/L (3.5-5.1); Troponin High Sensitivity 26.8 pg/mL (<58.9)
--- NOTE | 2022-03-24 19:31 | ER ---
Nurse's Notes [facility] Name: Willi Boudreaux Age: 71 yrs Sex: Male : 1950 Arrival Date: 03/24/2022 Time: 17:31 Bed 6 Private MD: Diagnosis: Chest pain, unspecified;Unspecified combined systolic (congestive) and diastolic (congestive) heart failure Presentation: 03/24 17:36 Chief complaint: Patient states: he is having mid chest pain that started approx an ap3 hour and a half ago. patient reports being recently discharged from the hospital. Coronavirus screen: At this time, the client does not indicate any symptoms associated with coronavirus-19. Ebola Screen: No symptoms or risks identified at this time. Initial Sepsis Screen: Does the patient meet any 2 criteria? No. Patient's initial sepsis screen is negative. Does the patient have a suspected source of infection? No. Patient's initial sepsis screen is negative. Risk Assessment: Do you want to hurt yourself or someone else? Patient reports no desire to harm self or others. Onset of symptoms was March 24, 2022 at 16:00. 17:36 Method Of Arrival: Wheelchair ap3 17:36 Acuity: DAI 2 ap3 Triage Assessment: 17:41 General: Appears distressed, Behavior is calm, cooperative. Pain: Complains of pain in ap3 chest Pain began 2 hours ago. Neuro: Level of Consciousness is awake, alert, obeys commands, Oriented to person, place, time, situation, Appropriate for age Speech is normal. Cardiovascular: Reports chest pain, shortness of breath. Respiratory: Airway is patent Respiratory effort is even, labored, Respiratory pattern is regular, tachypnea. Historical: - Allergies: 17:40 No Known Allergies; ap3 - PMHx: 17:40 diabetes mellitus; Hypertensive disorder; Myocardial infarction; ap3 - PSHx: 17:40 lumbar laminectomy, cervicle spine fusion; pacemaker; ap3 - Immunization history:: Client reports receiving the 2nd dose of the Covid vaccine. - Social history:: Smoking status: Patient reports the use of cigarette tobacco products, cigars. Screenin:42 Abuse screen: Denies threats or abuse. Nutritional screening: No deficits noted. ap3 Tuberculosis screening: No symptoms or risk factors identified. 18:43 Fall Risk None identified. ph Assessment: 17:42 Pain: Pain radiates to left side of the chest. ap3 17:43 Reassessment: Pt arrived without home O2. Pt states he is supposed to be on 4-5 L NC. ss 19:21 General: Appears in no apparent distress. Behavior is cooperative. Pain: Complains of sm5 pain in chest Quality of pain is described as pressure. Neuro: No deficits noted. Level of Consciousness is awake, alert, obeys commands, Oriented to person, place, time, situation. Cardiovascular: Capillary refill < 3 seconds Patient's skin is warm and dry. Respiratory: Airway is patent Trachea midline Respiratory effort is even, unlabored. Vital Signs: 17:36 BP 95 / 51; Pulse 59; Resp 19; Pulse Ox 65% on R/A; Weight 106.14 kg; Height 5 ft. 10 ap3 in. (177.80 cm); 17:42 Pulse Ox 92% on 5 lpm NC; ap3 18:44 BP 95 / 60; Pulse 60; Resp 18; Pulse Ox 96% on 5 lpm NC; ph 20:30 BP 113 / 92; Pulse 60; Resp 13 S; Pulse Ox 100% on 4 lpm NC; as6 22:30 BP 102 / 64; Pulse 60; Resp 18 S; Pulse Ox 100% on 4 lpm NC; as6 23:30 BP 122 / 66; Pulse 60; Resp 16 S; Pulse Ox 100% on 4 lpm NC; as6 17:36 Body Mass Index 33.58 (106.14 kg, 177.80 cm) ap3 17:36 patient states he is supposed to be on oxygen but hasn't been able to use it today ap3 Vitals: 18:45 Cardiac Rhythm Assessment Paced. ph ED Course: 17:31 Patient arrived in ED. mr 17:40 Yunier Blackwell PA is PHCP. cp 17:40 Jacobo Taveras MD is Attending Physician. cp 17:40 Triage completed. ap3 17:42 Arm band placed on right wrist. ap3 18:17 Giovanni Martinez, DONALD is Primary Nurse. bp 18:33 XRAY Chest (1 view) In Process Unspecified. EDMS 18:43 Patient has correct armband on for positive identification. Placed in gown. Bed in low ph position. Call light in reach. Side rails up X 1. Client placed on continuous cardiac and pulse oximetry monitoring. NIBP monitoring applied. 18:43 Oxygen administration via nasal cannula \T\ 5L/min. ph 18:55 Inserted saline lock: 20 gauge in right wrist, using aseptic technique. Blood collected.bp 19:30 Pattie Palam PA is Hospitalizing Provider. cp 23:49 No provider procedures requiring assistance completed. Patient admitted, IV remains in as6 place. Administered Medications: 21:12 Drug: Lasix (furosemide) 40 mg Route: IVP; Site: right hand; as6 23:52 Follow up: Response: No adverse reaction as6 Medication: 17:43 VIS not applicable for this client. ss Outcome: 19:30 Decision to Hospitalize by Provider. cp 23:49 Admitted to Med/surg accompanied by tech, via stretcher, room 216, with oxygen, with as6 chart. 23:49 Condition: stable 23:49 Instructed on the need for admit. 23:52 Patient left the ED. as6 Signatures: Dispatcher [employer] EDOR ReyesAlana mr Arielle Hopkins RN RN ss Briana Franklin, RN RN Yunier Sher PA PA cp Giovanni Martinez, RN RN Mikayla Becerra RN RN ap3 Daniel Amezcua RN RN as6 Smiley Oliveros RN RN sm5
--- NOTE | 2022-03-24 19:31 | EDPHYS ---
Physician Documentation [facility] Name: Willi Boudreaux Age: 71 yrs Sex: Male : 1950 Arrival Date: 03/24/2022 Time: 17:31 Bed 6 Private MD: ED Physician Jacobo Taveras HPI: 03/24 17:40 This 71 yrs old Black Male presents to ER via Unassigned with complaints of Chest Pain. cp 17:40 The patient or guardian reports chest pain that is located primarily in the anterior cp chest wall, left. 17:40 Onset: 2 hour(s) ago. The chest pain is described as a pressure. cp 17:40 Duration: The patient or guardian reports a single episode, that is still ongoing. cp 17:40 Severity of pain: in the emergency department the pain is unchanged despite home cp interventions. Historical: - Allergies: 17:40 No Known Allergies; ap3 - PMHx: 17:40 diabetes mellitus; Hypertensive disorder; Myocardial infarction; ap3 - PSHx: 17:40 lumbar laminectomy, cervicle spine fusion; pacemaker; ap3 - Immunization history:: Client reports receiving the 2nd dose of the Covid vaccine. - Social history:: Smoking status: Patient reports the use of cigarette tobacco products, cigars. ROS: 17:45 Constitutional: Negative for body aches, chills, fever, poor PO intake. cp 17:45 Eyes: Negative for injury, pain, redness, and discharge. cp 17:45 ENT: Negative for drainage from ear(s), ear pain, sore throat, difficulty swallowing, difficulty handling secretions. 17:45 Neck: Negative for pain with movement, pain at rest, stiffness. 17:45 Cardiovascular: Positive for chest pain, edema, Negative for palpitations. 17:45 Respiratory: Positive for shortness of breath, at rest. Negative for cough. 17:45 Abdomen/GI: Negative for abdominal pain, nausea, vomiting, and diarrhea. 17:45 Back: Negative for pain at rest, pain with movement. 17:45 Neuro: Negative for altered mental status, dizziness, headache, loss of consciousness, syncope, weakness. 17:45 All other systems are negative. Exam: 17:50 Constitutional: The patient appears in no acute distress, alert, awake, cp non-diaphoretic, non-toxic, well developed, well nourished, obese, uncomfortable. 17:50 Head/Face: Normocephalic, atraumatic. cp 17:50 Eyes: Periorbital structures: appear normal, Conjunctiva: normal, no exudate, no injection, Sclera: no appreciated abnormality, Lids and lashes: appear normal, bilaterally. 17:50 ENT: External ear(s): are unremarkable, Nose: is normal, Mouth: Lips: moist, Oral mucosa: pink and intact, moist, Posterior pharynx: Airway: normal. 17:50 Neck: ROM/movement: is normal, is supple, without pain, no range of motions limitations, no nuchal rigidity. 17:50 Chest/axilla: Inspection: normal, Palpation: is normal, no crepitus, no tenderness. 17:50 Cardiovascular: Rate: bradycardic, Rhythm: regular, Edema: ankle edema, that is marked, JVD: is not appreciated. 17:50 Respiratory: mild respiratory distress is noted, Respirations: labored breathing, that is mild, Breath sounds: decreased breath sounds, that are moderate, throughout, stridor, is not appreciated, wheezing: is not appreciated. 17:50 Abdomen/GI: Inspection: obese Palpation: abdomen is soft and non-tender, in all quadrants. 17:50 Back: pain, is absent, ROM is normal. 17:50 Neuro: Orientation: to person, place \\T\\ time. Mentation: is normal, Motor: moves all fours, strength is normal, Sensation: no obvious gross deficits. 18:00 ECG was reviewed by the Attending Physician. cp Vital Signs: 17:36 BP 95 / 51; Pulse 59; Resp 19; Pulse Ox 65% on R/A; Weight 106.14 kg; Height 5 ft. 10 ap3 in. (177.80 cm); 17:42 Pulse Ox 92% on 5 lpm NC; ap3 18:44 BP 95 / 60; Pulse 60; Resp 18; Pulse Ox 96% on 5 lpm NC; ph 20:30 BP 113 / 92; Pulse 60; Resp 13 S; Pulse Ox 100% on 4 lpm NC; as6 22:30 BP 102 / 64; Pulse 60; Resp 18 S; Pulse Ox 100% on 4 lpm NC; as6 23:30 BP 122 / 66; Pulse 60; Resp 16 S; Pulse Ox 100% on 4 lpm NC; as6 17:36 Body Mass Index 33.58 (106.14 kg, 177.80 cm) ap3 17:36 patient states he is supposed to be on oxygen but hasn't been able to use it today ap3 MDM: 18:00 Differential diagnosis: abnormal EKG, acute myocardial infarction, pericarditis, cp pleurisy, pneumonia, pneumothorax, pulmonary embolus, stable angina, unstable angina. 18:14 Patient medically screened. 19:30 Data reviewed: vital signs, nurses notes, lab test result(s), EKG, radiologic studies, cp plain films. 19:30 Test interpretation: by ED physician or midlevel provider: ECG, plain radiologic cp studies. Physician consultation: Pattie BRANDT was called at 19:25, was contacted at 19:25, regarding admission, to the telemetry unit. patient's condition, and will see patient in ED, shortly. 03/24 17:37 Order name: Basic Metabolic Panel; Complete Time: 19:23 03/24 19:23 Interpretation: Normal except: CL 109; CO2 33; GLUC 133; CRE 1.72; GFR 43; CA 8.4. 03/24 17:37 Order name: CBC with Diff; Complete Time: 19:23 rn 03/24 19:24 Interpretation: Normal except: HGB 11.6; HCT 37.7; MCH 25.8; MCHC 30.8; PLT 232; RDW cp 22.7; APOLINAR% 78.8; LYM% 10.2. 03/24 17:37 Order name: NT PRO-BNP; Complete Time: 19:23 rn 03/24 19:24 Interpretation: Abnormal: NT PRO-BNP 2521. 03/24 17:37 Order name: PT-INR; Complete Time: 19:23 rn 03/24 17:37 Order name: Troponin HS; Complete Time: 19:23 rn 03/24 19:41 Order name: COVID-19 SARS RT PCR (Document "Date of Onset" if Symptomatic) as6 03/24 17:37 Order name: XRAY Chest (1 view); Complete Time: 18:52 rn 03/24 18:52 Interpretation: Report review. 03/24 17:37 Order name: EKG; Complete Time: 17:37 rn 03/24 17:37 Order name: Cardiac monitoring; Complete Time: 18:55 rn 03/24 17:37 Order name: EKG - Nurse/Tech; Complete Time: 18:55 rn 03/24 17:37 Order name: IV Saline Lock; Complete Time: 18:55 rn 03/24 17:37 Order name: Labs collected and sent; Complete Time: 18:55 rn 03/24 17:37 Order name: O2 Per Protocol; Complete Time: 18:17 rn 03/24 17:37 Order name: O2 Sat Monitoring; Complete Time: 18:17 rn EC:00 Rate is 60 beats/min. Rhythm is regular, Paced. QRS interval is prolonged at 200 msec. cp QT interval is prolonged at 572 msec. T waves are Inverted in leads III, aVF, aVR. Interpreted by me. Reviewed by me. Administered Medications: 21:12 Drug: Lasix (furosemide) 40 mg Route: IVP; Site: right hand; as6 23:52 Follow up: Response: No adverse reaction as6 Disposition Summary: 03/24/22 19:30 Hospitalization Ordered Hospitalization Status: Observation cp Provider: Pattie Palma cp Location: Telemetry/MedSurg (observation) cp Condition: Stable cp Problem: new cp Symptoms: have improved cp Bed/Room Type: Standard cp Room Assignment: 216(03/24/22 22:21) cg Diagnosis - Chest pain, unspecified cp - Unspecified combined systolic (congestive) and diastolic (congestive) heart failure cp Forms: - Medication Reconciliation Form cp - SBAR form cp Addendum: 03/28/2022 00:24 Co-signature as Attending Physician, Jacobo Taveras MD. r n Signatures: Dispatcher [employer] Jacobo Weston MD MD rn Page, Corey, PA PA cp Karen Mays RN RN cg Mikayla Nair RN RN peng3 Daniel Amezcua RN RN as6 Pattie Palma PA PA sb3 Corrections: (The following items were deleted from the chart) 03/24 22:21 19:30 cp cg 03/25 23:39 03/24 17:40 Onset: 1.5 hour(s) ago, cp cp
--- NOTE | 2022-03-24 20:30 | P.HP ---
Certification for Inpatient Patient admitted to: Observation With expected LOS: <2 Midnights Patient will require the following post-hospital care: None Practitioner: I am a practitioner with admitting privileges, knowledge of patient current condition, hospital course, and medical plan of care. Services: Services provided to patient in accordance with Admission requirements found in Title 42 Section 412.3 of the Code of Federal Regulations Patient History Date of Service: 03/24/22 Reason for admission: CHF Exacerbation, Chest Pain History of Present Illness: Patient is a 71-year-old male with PMH of systolic CHF (EF 43%), IDDM, HTN, CAD, pacemaker who presented to the ED with complaints of substernal chest pain. He reports he was just sitting at home when he started feeling the pain. It was associated with dizziness and heaviness in his legs. He reports he has been requiring more supplemental oxygen lately and his legs have been very swollen. He was discharged here 2 weeks ago with an increase in his Lasix dosage but states it has not kept the fluid off. He reports he has not been restricting his fluid intake but is otherwise compliant with his medications. Labs significant for creatinine 1.72, BNP 2500, troponin HS 26.8, CXR showed mild CHF. EKG without ST changes. ED provider wishes to admit patient for observation. Allergies No Known Allergies Allergy (Verified 03/07/22 00:07) Home medications list reviewed: Yes Home Medications: Atorvastatin Calcium [Lipitor] 80 mg PO DAILY 11/03/21 Metformin ER [Glucophage ER*] 500 mg PO BID 11/03/21 bisoproloL fumarate [Zebeta*] 5 mg PO DAILY 11/03/21 Amiodarone HCl [Cordarone*] 400 mg PO BID #72 tab 11/05/21 Sacubitril/Valsartan [Entresto 24 mg-26 mg Tablet] 1 tab PO BID tab 11/05/21 Aspirin [Aspirin EC 81 MG] 81 mg PO DAILY #30 tablet. 03/11/22 Clopidogrel Bisulfate [Plavix*] 75 mg PO DAILY #30 tablet 03/11/22 Fluticasone [Flonase 50MCG Nasal [place]*] 0 sprays YUE DAILY PRN #1 btl 03/11/22 Furosemide [Lasix] 80 mg PO BID #60 03/11/22 Insulin NPH Human [Novolin N (Humulin N)*] 10 units SQ BIDWM #10 ml 03/11/22 Smz./Tmp. [Bactrim Ds 800 MG/160 MG*] 1 tab PO BID #14 tab 03/11/22 - Past Medical/Surgical History Diabetic: Yes -: HTN -: HLD -: DM insulin-dependent -: CAD -: myocardial infarcation -: CHF/systolic -: pacemaker/defibrillator -: cardiac stent x2 -: lumbar laminectomy -: cervical spine surgery Psychosocial/ Personal History: Patient lives at home, alone - Social History Smoking Status: Current some day smoker Alcohol use: No CD- Drugs: No Caffeine use: Yes Place of Residence: Home Review of Systems Cardiovascular: Chest Pain, Edema, Light Headedness, As per HPI Physical Examination - Physical Exam General: Alert, In no apparent distress, Obese HEENT: Atraumatic, PERRLA, EOMI, Sclerae nonicteric Neck: Supple, 2+ carotid pulse no bruit, No LAD, Without JVD or thyroid abnormality Respiratory: Crackles/rales Cardiovascular: Regular rate/rhythm, Normal S1 S2, Edema (2+ pitting edema BLE) Gastrointestinal: Normal bowel sounds, No tenderness Musculoskeletal: No tenderness Integumentary: No rashes Neurological: Normal speech, Normal strength at 5/5 x4 extr, Normal tone, Normal affect - Studies Laboratory Data (last 24 hrs) 03/24/22 18:43: PT 15.2 H, INR 1.37 03/24/22 18:43: WBC 7.0 D, Hgb 11.6 L, Hct 37.7 L, Plt Count 232 D 03/24/22 18:43: Sodium 145, Potassium 3.5, BUN 15, Creatinine 1.72 H, Glucose 133 H Assessment and Plan - Problems (Diagnosis) (1) CHF (congestive heart failure) Current Visit: Yes Status: Acute Qualifiers: Heart failure type: combined systolic and diastolic Heart failure chronicity: acute on chronic Qualified Code(s): I50.43 - Acute on chronic combined systolic (congestive) and diastolic (congestive) heart failure (2) Chest pain Current Visit: Yes Status: Acute Qualifiers: Chest pain type: chest pain due to myocardial ischemia Ischemic chest pain type: unstable angina pectoris Qualified Code(s): I20.0 - Unstable angina (3) LEELA (acute kidney injury) Current Visit: Yes Status: Acute (4) CAD (coronary artery disease) Current Visit: Yes Status: Chronic Qualifiers: Coronary Disease-Associated Artery/Lesion type: [place] artery [place] vs. transplanted heart: [place] heart Associated angina: with unstable angina Qualified Code(s): I25.110 - Atherosclerotic heart disease of [place] coronary artery with unstable angina pectoris (5) HLD (hyperlipidemia) Current Visit: No Status: Chronic Qualifiers: Hyperlipidemia type: unspecified Qualified Code(s): E78.5 - Hyperlipidemia, unspecified (6) HTN (hypertension) Current Visit: Yes Status: Chronic Qualifiers: Hypertension type: primary hypertension Qualified Code(s): I10 - Essential (primary) hypertension (7) T2DM (type 2 diabetes mellitus) Current Visit: Yes Status: Chronic Qualifiers: 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 1500 cc/day fluid restriction. Daily weights. Low sodium diet. -Cardiology consult -Supplemental O2 as needed. CPAP at night (as patient states he uses at home). -Initial troponin negative. Trend. EKG without ST changes. -Mild sliding scale insulin with ACHS accu checks. -Reconcile and continue home medications -Elevated Cr likely secondary to CHF. Monitor. -Lovenox for VTE ppx -Full code Discharge Plan: Home Plan to discharge in: 24 Hours - Advance Directives Does patient have a Living Will: No Does patient have a Durable POA for Healthcare: No - Code Status/Comfort Care Code Status Assessed: Yes (Full) Critical Care: No Time Spent Managing Pts Care (In Minutes): 70
[2022-03-24] MEDS ORDERED: FUROSEMIDE 40 MG/4 ML VIAL ONE (20:42)
[2022-03-24] MEDS: INSULIN -REGULAR HUMAN 50 UNIT/0.5 ML ML SQ SCH (23:26)
[2022-03-24] MEDS ORDERED: ONDANSETRON 4 MG/2 ML VIAL IV PRN (23:26)
[2022-03-24] MEDS ORDERED: ACETAMINOPHEN 500 MG TAB PO PRN (23:26)
[2022-03-25 01:08] VITALS: BMI 35.0
[2022-03-25 01:15] LABS: Arterial Blood Carboxyhemoglob 4.9 % (0-1.5); Blood Gas Oxyhemoglobin 86.8 % (94-97); Blood O2 Saturation 92.1 % (92-98.5)
[2022-03-25 04:00] LABS: Absolute Lymphocytes (CBC) 1.1 K/uL (0.7-4.9); Hematocrit 37.2 % (39.6-49.0); Lymphocytes % 16.3 % (15.3-44.8); MPV 8.9 fL (7.6-11.3); RBC Red Blood Cell Count 4.45 M/uL (4.33-5.43)
[2022-03-25 04:26] LABS: Magnesium 1.8 mg/dL (1.8-2.4); Phosphorus 3.6 mg/dL (2.5-4.9); Potassium 3.2 mmol/L (3.5-5.1); Thyroid Stimulating Hormone 0.709 uIU/mL (0.360-3.740)
[2022-03-25 05:00] LABS: Anisocytosis 2+; Basophilic Stippling 1+; Blood Morphology Comment NOTED (NOT SEEN); Platelet Estimate ADEQ; White Blood Cell Scan OK (OK)
[2022-03-25] MEDS ORDERED: MAGNESIUM SULFATE 1 gm IVPB 1 GM/100 ML BAG IV ONE (05:18)
[2022-03-25] MEDS: INSULIN -REGULAR HUMAN 50 UNIT/0.5 ML ML SQ SCH ×4 (07:30→21:00)
--- NOTE | 2022-03-25 08:07 | EKG ---
Test Date: 2022-03-24 Test Time: 18:32:36 Weaving Instructor: BP MEASUREMENT RESULTS: Intervals: Rate: 60 GA: QRSD: 200 QT: 572 QTc: 572 [place]: P: GA: QRS: -80 T: -30 INTERPRETIVE STATEMENTS: Ventricular-paced rhythm Abnormal ECG Compared to ECG 11/04/2021 08:36:54 No significant changes Electronically Signed On 03-25-22 08:05:32 CDT by Alon Aaron
[2022-03-25] MEDS ORDERED: POTASSIUM CL SA 10 MEQ TAB PO ONE (09:00)
[2022-03-25] MEDS: FUROSEMIDE 40 MG/4 ML VIAL IV SCH ×3 (10:39→21:33)
[2022-03-25] MEDS: ENOXAPARIN 40 MG/0.4 ML SQ SCH (10:40)
--- NOTE | 2022-03-25 13:54 | P.PN ---
Subjective Date of Service: 03/25/22 Chief Complaint: CHF Exacerbation, Chest Pain Patient reports improvement in shortness of breath. He denies orthopnea. He reported no change in leg swelling since admission Physical Examination - Vital Signs Temperature: 97.6 F Blood Pressure: 119/60 Pulse: 60 Respirations: 22 Pulse Ox (%): 97 - Physical Exam General: Alert, In no apparent distress, Oriented x3 HEENT: Mucous membr. moist/pink Neck: Supple, JVD not distended Respiratory: Normal air movement, Other (Mild bibasilar R[place]) Cardiovascular: Regular rate/rhythm, Normal S1 S2, Edema (2+ bilateral lower extremity edema) Gastrointestinal: Soft and benign, Non-distended, No tenderness Musculoskeletal: Swelling (Bilateral lower extremities) Integumentary: Other (Bilateral venous stasis dermatitis.) Neurological: Normal strength at 5/5 x4 extr - Studies Laboratory Data (last 24 hrs) 03/24/22 18:43: PT 15.2 H, INR 1.37 03/24/22 18:43: WBC 7.0 D, Hgb 11.6 L, Hct 37.7 L, Plt Count 232 D 03/24/22 18:43: Sodium 145, Potassium 3.5, BUN 15, Creatinine 1.72 H, Glucose 133 H Assessment And Plan - Current Problems (Diagnosis) (1) Anasarca Current Visit: Yes Status: Acute (2) Acute on chronic systolic heart failure Current Visit: Yes Status: Acute (3) CAD (coronary artery disease) Current Visit: Yes Status: Chronic Qualifiers: Coronary Disease-Associated Artery/Lesion type: [place] artery [place] vs. 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 Monitor renal function Reconcile and continue home medications. Monitor and correct electrolyte as needed. Fluid restriction to 1500 ml per day. Daily weight. Continue Entresto, amiodarone Resume NPH. Continue insulin sliding scale. Resume antiplatelets for CAD.
[2022-03-25] MEDS ORDERED: GLUCAGON 1 MG/VIAL IM PRN (14:01)
[2022-03-25] MEDS ORDERED: D50W 25 GM/50 ML SYRINGE IV PRN (14:01)
[2022-03-25] MEDS ORDERED: D10W 125 ML IV PRN (14:12)
[2022-03-25] MEDS: NPH (HUMAN) 100 UNITS/ML INSULIN SQ SCH (17:00)
[2022-03-25] MEDS: ATORVASTATIN 80 MG TAB PO SCH (21:30)
[2022-03-25] MEDS: AMIODARONE HCL 200 MG TAB PO SCH (21:31)
[2022-03-25] MEDS: SACUBITRIL/VALSARTAN 24/26 MG TAB PO SCH (21:31)
[2022-03-26 04:00] LABS: Hematocrit 36.6 % (39.6-49.0); Lymphocytes % 16.5 % (15.3-44.8); RBC Red Blood Cell Count 4.35 M/uL (4.33-5.43)
[2022-03-26 04:21] LABS: Potassium 3.6 mmol/L (3.5-5.1)
[2022-03-26] MEDS: INSULIN -REGULAR HUMAN 50 UNIT/0.5 ML ML SQ SCH ×4 (07:30→20:12)
[2022-03-26] MEDS ORDERED: BISOPROLOL 5 MG TABLET PO SCH (09:00)
[2022-03-26] MEDS ORDERED: MAGNESIUM SULFATE 1 gm IVPB 1 GM/100 ML BAG IV ONE (09:00)
[2022-03-26] MEDS ORDERED: POTASSIUM CL SA 10 MEQ TAB PO ONE (09:00)
[2022-03-26] MEDS: NPH (HUMAN) 100 UNITS/ML INSULIN SQ SCH ×2 (09:27→18:23)
[2022-03-26] MEDS: ASPIRIN EC 81 MG TAB PO SCH (09:28)
[2022-03-26] MEDS: AMIODARONE HCL 200 MG TAB PO SCH ×2 (09:28→20:10)
[2022-03-26] MEDS: SACUBITRIL/VALSARTAN 24/26 MG TAB PO SCH ×2 (09:30→20:10)
[2022-03-26] MEDS: FUROSEMIDE 40 MG/4 ML VIAL IV SCH ×2 (09:30→18:19)
[2022-03-26] MEDS: CLOPIDOGREL 75 MG TABLET PO SCH (09:31)
[2022-03-26] MEDS: ENOXAPARIN 40 MG/0.4 ML SQ SCH (09:31)
[2022-03-26] MEDS ORDERED: FLUTICASONE 50MCG NASAL SPRAY NAS PRN (13:34)
--- NOTE | 2022-03-26 13:34 | P.PN ---
Subjective Date of Service: 03/26/22 Chief Complaint: CHF Exacerbation, Chest Pain Patient reports improvement in shortness of breath. He denies orthopnea. His leg swelling has significantly improved. No scrotal edema. Physical Examination - Vital Signs Temperature: 97.7 F Blood Pressure: 110/63 Pulse: 60 Respirations: 16 Pulse Ox (%): 98 - Physical Exam General: Alert, In no apparent distress, Oriented x3 HEENT: Mucous membr. moist/pink Neck: JVD not distended Respiratory: Clear to auscultation bilaterally, Normal air movement Cardiovascular: Regular rate/rhythm, Normal S1 S2, Edema (1+ bilateral lower extremity pitting edema) Gastrointestinal: Normal bowel sounds, Soft and benign, No tenderness Musculoskeletal: No tenderness Integumentary: Other (Venostasis dermatitis) Neurological: Normal strength at 5/5 x4 extr Assessment And Plan - Current Problems (Diagnosis) (1) Anasarca Current Visit: Yes Status: Acute (2) Acute on chronic systolic heart failure Current Visit: Yes Status: Acute (3) CAD (coronary artery disease) Current Visit: Yes Status: Chronic Qualifiers: Coronary Disease-Associated Artery/Lesion type: [place] artery [place] vs. 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 Fluid restriction to 1500 ml per day. Daily weight. Continue Entresto, amiodarone Resume NPH. Continue insulin sliding scale. Continue antiplatelets for CAD. Possible discharge in a.m.
[2022-03-26] MEDS ORDERED: HOME MED 1 EA UNK [FLUTICASONE 50MCG NASAL SPRAY] NAS PRN (13:38)
[2022-03-26] MEDS: ATORVASTATIN 80 MG TAB PO SCH (20:10)
[2022-03-26 21:04] VITALS: O2SAT 90
[2022-03-27 03:57] LABS: Absolute Lymphocytes (CBC) 1.1 K/uL (0.7-4.9); Lymphocytes % 17.2 % (15.3-44.8); MPV 9.4 fL (7.6-11.3); RBC Red Blood Cell Count 4.57 M/uL (4.33-5.43)
[2022-03-27 04:09] LABS: Potassium 3.6 mmol/L (3.5-5.1)
[2022-03-27] MEDS: INSULIN -REGULAR HUMAN 50 UNIT/0.5 ML ML SQ SCH (07:30)
[2022-03-27 08:15] VITALS: BP 131/69; TEMP 97.2
[2022-03-27] MEDS ORDERED: POTASSIUM CL SA 10 MEQ TAB PO ONE (09:00)
--- NOTE | 2022-03-27 09:08 | P.DS ---
Admission Date: 03/25/22 Discharge Date: 03/27/22 Disposition: DC HOME/HOME HEALTH CARE Discharge Condition: FAIR Reason for Admission: CHF Exacerbation, Chest Pain - Problems (1) Anasarca Status: Acute (2) Acute on chronic systolic heart failure Status: Acute (3) CAD (coronary artery disease) Status: Chronic Qualifiers: Coronary Disease-Associated Artery/Lesion type: [place] artery [place] vs. transplanted heart: [place] heart Associated angina: with unstable angina Qualified Code(s): I25.110 - Atherosclerotic heart disease of [place] coronary artery with unstable angina pectoris (4) HTN (hypertension) Status: Chronic Qualifiers: Hypertension type: primary hypertension Qualified Code(s): I10 - Essential (primary) hypertension (5) T2DM (type 2 diabetes mellitus) Status: Chronic Qualifiers: Diabetes mellitus jail insulin use: with buttermaker continuous churn use Diabetes mellitus complication status: with kidney complications Diabetes mellitus complication detail: with chronic kidney disease Chronic kidney disease stage: stage 3 (moderate) Chronic kidney disease stage 3 subtype: stage 3b (GFR 30- 44) Qualified Code(s): E11.22 - Type 2 diabetes mellitus with diabetic chronic kidney disease; N18.32 - Chronic kidney disease, stage 3b; Z79.4 - USP (current) use of insulin Brief History of Present Illness: Patient is a 71-year-old male with PMH of systolic CHF (EF 43%), IDDM, HTN, CAD, pacemaker who presented to the ED with complaints of substernal chest pain. He reports he was just sitting at home when he started feeling the pain. It was associated with dizziness and heaviness in his legs. He reports he has been requiring more supplemental oxygen lately and his legs have been very swollen. He was discharged here 2 weeks prior with an increase in his Lasix dosage but states it has not kept the fluid off. He reports he has not been restricting his fluid intake but is otherwise compliant with his medications. Labs significant for creatinine 1.72, BNP 2500, troponin HS 26.8, CXR showed mild CHF. EKG without ST changes. Patient admitted for further management. Hospital Course: Patient admitted to the medical floor and treated for CHF exacerbation with IV Lasix. His shortness of breath and lower extremity edema significantly improved. Patient was placed on 1500 mill per day fluid restriction. Continued Entresto and amiodarone. Continued his antiplatelets for CAD. Oxygen requirement was at baseline. Apparently patient was taking a lower dose of his Lasix-40 mg twice daily instead of 80 mg twice daily. He has significantly improved with treatment. Leg swelling have significantly improved. Patient is deemed stable for discharge. Vital Signs/Physical Exam: Temp Pulse Resp BP Pulse Ox 97.2 F 61 16 131/69 96 03/27/22 08:00 03/27/22 08:00 03/27/22 08:00 03/27/22 08:00 03/27/22 08:00 General: Alert, In no apparent distress, Oriented x3, Obese HEENT: Mucous membr. moist/pink Neck: JVD not distended Respiratory: Clear to auscultation bilaterally, Normal air movement Cardiovascular: Regular rate/rhythm, Normal S1 S2, Edema (1+ bilateral lower extremity edema) Gastrointestinal: Normal bowel sounds, Soft and benign, Non-distended, No tenderness Musculoskeletal: No tenderness Integumentary: No rashes Neurological: Normal strength at 5/5 x4 extr Laboratory Data at Discharge: WBC 6.6 K/uL (4.3-10.9) 03/27/22 03:12 Hgb 12.0 g/dL (13.6-17.9) L 03/27/22 03:12 Hct 38.0 % (39.6-49.0) L 03/27/22 03:12 Plt Count 213 K/uL (152-406) 03/27/22 03:12 PT 15.2 SECONDS (9.5-12.5) H 03/24/22 18:43 INR 1.37 03/24/22 18:43 Sodium 140 mmol/L (136-145) 03/27/22 03:12 Potassium 3.6 mmol/L (3.5-5.1) 03/27/22 03:12 BUN 10 mg/dL (7-18) 03/27/22 03:12 Creatinine 1.15 mg/dL (0.55-1.3) 03/27/22 03:12 Glucose 165 mg/dL (74-106) H 03/27/22 03:12 Phosphorus 3.6 mg/dL (2.5-4.9) 03/25/22 03:33 Magnesium 1.9 mg/dL (1.8-2.4) 03/27/22 03:12 Triglycerides 58 mg/dL (<150) 03/25/22 03:33 Cholesterol 58 mg/dL (<200) 03/25/22 03:33 HDL Cholesterol 28 mg/dL (40-60) L 03/25/22 03:33 Cholesterol/HDL Ratio 2.07 03/25/22 03:33 Home Medications: Amiodarone HCl [Cordarone*] 200 mg PO BID #60 tab 03/27/22 Aspirin [Aspirin EC 81 MG] 81 mg PO DAILY #30 tablet. 03/27/22 Atorvastatin Calcium [Lipitor] 80 mg PO DAILY #30 tab 03/27/22 Clopidogrel Bisulfate [Plavix*] 75 mg PO DAILY #30 tablet 03/27/22 Fluticasone [Flonase 50MCG Nasal [place]*] 1 sprays YUE DAILY PRN #1 btl 03/27/22 Furosemide [Lasix] 80 mg PO BID #60 03/27/22 Insulin NPH Human [Novolin N (Humulin N)*] 10 units SQ BIDWM #10 ml 03/27/22 Metformin ER [Glucophage ER*] 500 mg PO BID #60 tab.sa 03/27/22 Sacubitril/Valsartan [Entresto 24 mg-26 mg Tablet] 1 tab PO BID #60 tab 03/27/22 bisoproloL fumarate [Zebeta*] 5 mg PO DAILY #30 03/27/22 New Medications: Aspirin [Aspirin EC 81 MG] 81 mg PO DAILY #30 tablet. Amiodarone HCl [Cordarone*] 200 mg PO BID #60 tab Sacubitril/Valsartan [Entresto 24 mg-26 mg Tablet] 1 tab PO BID #60 tab Fluticasone [Flonase 50MCG Nasal [place]*] 1 sprays YUE DAILY PRN #1 btl PRN Reason: Nasal Congestion Metformin ER [Glucophage ER*] 500 mg PO BID #60 tab.sa Furosemide [Lasix] 80 mg PO BID #60 Atorvastatin Calcium [Lipitor] 80 mg PO DAILY #30 tab Insulin NPH Human [Novolin N (Humulin N)*] 10 units SQ BIDWM #10 ml Clopidogrel Bisulfate [Plavix*] 75 mg PO DAILY #30 tablet bisoproloL fumarate [Zebeta*] 5 mg PO DAILY #30 Diet: ADA Activity: Ad alec Followup: Alon Aaron MD [ACTIVE - CAN ADMIT] - 1-2 Weeks (Call to schedule appointment.) Time spent managing pt's care (in minutes): 35
[2022-03-27] MEDS: NPH (HUMAN) 100 UNITS/ML INSULIN SQ SCH (09:12)
[2022-03-27] MEDS: ENOXAPARIN 40 MG/0.4 ML SQ SCH (09:13)
[2022-03-27] MEDS: AMIODARONE HCL 200 MG TAB PO SCH (09:15)
[2022-03-27] MEDS: ASPIRIN EC 81 MG TAB PO SCH (09:15)
[2022-03-27] MEDS: SACUBITRIL/VALSARTAN 24/26 MG TAB PO SCH (09:15)
[2022-03-27] MEDS: FUROSEMIDE 40 MG/4 ML VIAL IV SCH (09:16)
[2022-03-27] MEDS: CLOPIDOGREL 75 MG TABLET PO SCH (09:17)
--- NOTE | 2022-03-27 11:03 | PN ---
Date of Progress Note: 03/26/2022 Mr. Boudreaux had come in with acute on chronic systolic congestive heart failure. Pacemaker therapy, status post amiodarone use, he remains in the hospital for treatment of his last blood pressure was 116/54, paced rhythm. Labs; glucose is 150. His saturation is 99% on 4 L of nasal cannula. Creatin ine normalized to 1.13. His troponin remained negative. He is still having significant edema. He r emains on amiodarone, aspirin, Lipitor, Plavix, Lovenox, Lasix, insulin, Entresto and bisoprolol. I do not recommend any further cardiac workup at this point. He is known to have an ejection fraction of 43% by recent echo. Again I was continued pulmonary support. Continue diuresis. Hopefully send him home in the next day or 2. I will see him in the office soon. MICHELLE/WASHINGTON Voice ID: [id number] Report ID: [id number]
--- NOTE | 2022-03-27 11:08 | CON ---
Date of Consultation: 03/25/2022 Reason For Consultation: Congestive heart failure. History Of Present Illness: Mr. Boudreaux is a 71-year-old. He is known to have history of atrial fi brillation and chronic diastolic congestive heart failure, dyslipidemia, coronary artery disease, pac emaker and diabetes. He comes in with congestive heart failure exacerbation. Last ejection fraction was 43% in October of 2021. Past Medical History: As stated above. Allergies: NONE. Review of Systems: Negative. Social History: Negative. Family History: Noncontributory. Medications: At home include amiodarone, aspirin, Lipitor, Plavix, Lasix, insulin, metformin, Entres to, and . Physical Examination: General: He appeared to be actually in no acute distress. Vital Signs: Stable. His blood pressure was 117/61, was in a paced rhythm. HEENT: Negative. Neck: Supple. No bruit, lymphadenopathy, JVD, or thyromegaly. Chest: Reveals some expiratory wheezing and rales. Cardiac: Revealed a paced rhythm. No murmurs, gallops, or rubs. Abdomen: Benign. Extremities: Revealed trace edema with chronic venous changes. Skin: Dry and intact. Neurologic: He was nonfocal. Pulses were present distally bilaterally. Diagnostic Data: His chest x-ray showed mild failure. Creatinine is 1.54. BNP is 2500. His PO2 wa s 66, pCO2 was 55, pH was 7.38. Chest x-ray shows CHF. Impression And Plan: 1.Acute on chronic systolic congestive heart failure. 2.Paroxysmal atrial fibrillation. 3.Status post pacemaker. 4.Dyslipidemia. 5.Coronary artery disease. 6.Diabetes. 7.Hypertension. Mr. Boudreaux needs to be diuresed. No need for any cardiac workup at this point. Continue his prese nt regimen. He is not taking any diuretics at home except for the Lasix. We should consider the use of low-dose Aldactone as an outpatient. I will see him in the office soon. Continue his Entresto. MICHELLE/WASHINGTON Voice ID: [id number] Report ID: [id number]
== END 2022-03-27 11:32 | disposition home or self-care (01) | DRG 291 ==
LOC: ER 17:31 → ERHOLD 20:19 → OBSVTOIN 20:19 → INTOOBSV 20:19 → 2ND 23:14 → OBSVTOIN 03-25 13:48
PROVIDERS: ADMIT Internal Medicine; ATTEND Internal Medicine
DX: I13.0 Hypertensive heart and chronic kidney disease with heart failure and stage 1 through stage 4 chronic kidney disease, or unspecified chronic kidney disease (principal); I50.23 Acute on chronic systolic (congestive) heart failure; N17.9 Acute kidney failure, unspecified; N18.32 Chronic kidney disease, stage 3b; E11.22 Type 2 diabetes mellitus with diabetic chronic kidney disease; I25.110 Atherosclerotic heart disease of native coronary artery with unstable angina pectoris; I48.0 Paroxysmal atrial fibrillation; E78.5 Hyperlipidemia, unspecified; R09.81 Nasal congestion; E66.9 Obesity, unspecified; Z68.36 Body mass index [BMI] 36.0-36.9, adult; F17.210 Nicotine dependence, cigarettes, uncomplicated; Z20.822 Contact with and (suspected) exposure to COVID-19; I25.2 Old myocardial infarction; Z95.0 Presence of cardiac pacemaker; Z95.5 Presence of coronary angioplasty implant and graft; Z79.02 Long term (current) use of antithrombotics/antiplatelets; Z79.4 Long term (current) use of insulin; Z79.84 Long term (current) use of oral hypoglycemic drugs; Z79.82 Long term (current) use of aspirin; Z79.899 Other long term (current) drug therapy; Z99.81 Dependence on supplemental oxygen
CPT/HCPCS: 36415; 71045; 80048; 80061; 82805; 82947; 83735; 83880; 84100; 84132; 84443; 84484; 85025; 85610; 93005; 96374; 99285; G0378; J1650; J1815; J1940; J3475; U0003

== ENCOUNTER 2022-03-30 12:01 | Inpatient (IN) | payer OTHER ==
--- OUTSIDE RECORDS SUMMARY | 2022-03-30 12:15 | XMS REPORT | Continuity of Care Document ---
:1950 Author Organization [facility] t Address [address] [place] [address] Care Team Providers Name Role Phone Marisela [...] [facility] 3-15 Clear s 00:00: [address] No Known DA Active [facility] 1-20 Clear s 00:00: [address] Medications This patient has no known medications. Procedures Procedure Date / Time Performed Performing Clinician Chintan velasco [id number] 2021-10-31 00:00:00 [facility] [id number] 2021-10-31 00:00:00 [facility] [id number] 2021-10-30 00:00:00 [facility] Encounters Start End Encounter Admission Attending Care Care Encounter Source Date/Time Date/Time Type Type Clinicians Facility Department ID 2021-12-23 Inpatient Marisela, JANETHCL OUTD [id number] [facility] 09:30:00 Jorge [facility] 2021-11-24 Inpatient Marisela, MARIAM OUTD [id number] [facility] 09:30:00 Jorge [facility] 2021-12-24 2021-12-24 Outpatient TO Antonio, JANETHCL [facility] [id number] [facility] 05:20:00 05:20:00 Jorge [address] [facility] 2021-12-24 2021-12-24 Outpatient TO Antonio, HCACL [facility] [id number] [facility] 05:20:00 05:20:00 Jorge 67 [facility] 2021-11-26 2021-11-26 Outpatient TO Antonio, JANETHCL [facility] [id number] 05:19:00 05:19:00 Jorge [facility] 2021-11-26 2021-11-26 Outpatient TO Antonio, HCACL HC[facility]L [id number] [facility] 05:19:00 05:19:00 Jorge 76 [facility] 2021-10-31 2021-11-01 Inpatient EM Kinjal, HCAMN TELE [id number] [facility] 16:03:00 10:24:00 Lisa [facility] 2021-10-31 2021-11-01 Inpatient EM Kinjal, HCAMN TELE [id number] [facility] 16:03:00 10:24:00 Lisa 16 [facility] 2021-10-30 2021-10-30 Inpatient EM Miracle, [facility] TELE [id number] [facility] 16:12:00 16:11:00 Juma [facility] Results Test Description Test Time Test Comments [...] CA) 8.7 mg/dL 8.0-10.5 N CBC W/AUTO [id number] 16:03:00 Test Item Value Reference Range Interpretation [...] REQUIRED (test code NO = MDIFF) GLUCOSE [id number] 13:59:00 Test Item Value Reference Range Interpretation Comments GLUCOSE BEDSIDE (test 127 MG/DL 70-110 H Perfor med by certified code = GLUBED) mud analysis operator at [place] [id number] 13:39:00 Test Item Value Reference Range Interpretation Comments ACT-ISTAT (test code 279 SEC 74-137 H Perform ed by certified = ACTI) mud analysis operator at [place] [id number] 13:29:00 Test Item Value Reference Range Interpretation Comments ACT-ISTAT (test code 243 SEC 74-137 H Perform ed by certified = ACTI) mud analysis operator at [place] [id number] 13:07:00 Test Item Value Reference Range Interpretation Comments ACT-ISTAT (test code 327 SEC 74-137 H Perform ed by certified = ACTI) mud analysis operator at [facility] GLUCOSE [id number] 10:34:00 Test Item Value Reference Range Interpretation Comments GLUCOSE BEDSIDE (test 154 MG/DL 70-110 H Perfor med by certified code = GLUBED) mud analysis operator at [facility] BASIC METABOLIC [id number] 12:01:00 Test Item Value Reference Range Interpretation [...] = 9.1 mg/dL 8.0-10.5 N CA) PROTHROMBIN [id number] 11:36:00 Test Item Value Reference Range Interpretation [...] o prevent recurre nt infarct). CBC W/AUTO [id number] 11:35:00 Test Item Value Reference Range Interpretation [...] (test code NO = MDIFF) BASIC METABOLIC [id number] 11:41:00 Test Item Value Reference Range Interpretation [...] 8.2 mg/dL 8.0-10.5 N CA) CBC W/AUTO [id number] 11:19:00 Test Item Value Reference Range Interpretation [...] 0.00 x10 3/uL 0.0-0.1 N NRBC#) GLUCOSE [id number] 09:23:00 Test Item Value Reference Range Interpretation Comments GLUCOSE BEDSIDE (test 108 MG/DL 70-110 N [facility] med by certified code = GLUBED) mud analysis operator at [facility] [id number] 08:44:00 Test Item Value Reference Range Interpretation Comments ACT-ISTAT (test code 273 SEC 74-137 H Perform ed by certified = ACTI) mud analysis operator at [facility] BASIC METABOLIC [id number] 08:38:00 Test Item Value Reference Range Interpretation [...] code = 8.3 mg/dL 8.0-10.5 N CA) [id number] 08:22:00 Test Item Value Reference Range Interpretation Comments ACT-ISTAT (test code 303 SEC 74-137 H Perform ed by certified = ACTI) mud analysis operator at [facility] GLUCOSE [id number] 06:14:00 Test Item Value Reference Range Interpretation Comments GLUCOSE BEDSIDE (test 115 MG/DL 70-110 H [facility] med by certified code = GLUBED) mud analysis operator at [facility] BASIC METABOLIC [id number] 11:09:00 Test Item Value Reference Range Interpretation Comments SODIUM (test code = NA) 144 mEq/L 134-147 N POTASSIUM (test code = 2.9 mEq/L 3.4-5.0 LL Criti kathie result K) called to SAMMI BOB/August Sotomayor GLizzieLAB.LS at 110 2 11/24/21Ncoreen fischer back resut [...] = 8.1 mg/dL 8.0-10.5 N CA) PROTHROMBIN [id number] 10:36:00 Test Item Value Reference Range Interpretation [...] o prevent recurre nt infarct). CBC W/AUTO [id number] 10:21:00 Test Item Value Reference Range Interpretation [...] = 0.00 x10 3/uL 0.0-0.1 N NRBC#) [id number] 14:18:00 Test Item Value Reference Range Interpretation Comments GLUBED (test code = GLUBED) 167 mg/dL 70-110 H [id number] 14:17:00 Test Item Value Reference Range Interpretation Comments GLUBED (test code = GLUBED) 117 mg/dL 70-110 H [id number] 07:34:00 Test Item Value Reference Range Interpretation Comments GLUBED (test code = GLUBED) 215 mg/dL 70-110 H CBC W/AUTO [id number] 06:26:00 Test Item Value Reference Range Interpretation [...] X10 3uL 0.00-0.01 N NRBC#) BASIC METABOLIC [id number] 06:17:00 Test Item Value Reference Range Interpretation [...] code = CA) 8.6 mg/dl 8.0-10.5 N [id number] 07:26:00 Test Item Value Reference Range Interpretation Comments TROPONIN-I (test 0.63 NG/ML 0.00-0.06 HH REFERENCE R XAVIER TROPONIN code = TROPI) I HEALTHY PERNELL VIDUALS: <0.06 ng/mL R/O ISCHEMIA: 0.07 - 0.60 ng/mL CUT-OFF R XAVIER FOR AMI: 0.60 - 1. 5 ng/mL [id number] 06:10:00 Test Item Value Reference Range Interpretation Comments GLUBED (test code = GLUBED) 115 mg/dL 70-110 H [id number] 04:17:00 Test Item Value Reference Range Interpretation Comments TROPONIN-I (test 0.59 NG/ML 0.00-0.06 HH REFERENCE R XAVIER TROPONIN code = TROPI) I HEALTHY PERNELL VIDUALS: <0.06 ng/mL R/O ISCHEMIA: 0.07 - 0.60 ng/mL CUT-OFF R XAVIER FOR AMI: 0.60 - 1. 5 ng/mL [id number] 22:52:00 Test Item Value Reference Range Interpretation Comments TROPONIN-I (test 0.43 NG/ML 0.00-0.06 H REFERENCE R XAVIER TROPONIN code = TROPI) I HEALTHY PERNELL VIDUALS: <0.06 ng/mL R/O ISCHEMIA: 0.07 - 0.60 ng/mL CUT-OFF R XAVIER FOR AMI: 0.60 - 1. 5 ng/mL BASIC METABOLIC [id number] 17:55:00 Test Item Value Reference Range Interpretation [...] CA) 8.5 mg/dl 8.0-10.5 N B-TYPE NATRIURETIC [id number] 17:55:00 Test Item Value Reference Range Interpretation Comments B-TYPE NATRIURETIC PEPTIDE (test 670 PG/ML 5-100 H code = BNP) [id number] 17:55:00 Test Item Value Reference Range Interpretation Comments TROPONIN-I (test 0.04 NG/ML 0.00-0.06 N REFERENCE R XAVIER TROPONIN code = TROPI) I HEALTHY PERNELL VIDUALS: <0.06 ng/mL R/O ISCHEMIA: 0.07 - 0.60 ng/mL CUT-OFF R XAVIER FOR AMI: 0.60 - 1. 5 ng/mL [id number] 17:52:00 Test Item Value Reference Range Interpretation Comments GLUBED (test code = GLUBED) 117 mg/dL 70-110 H COVID 19 Asymptomatic IH [id number] 17:49:00 Test Item Value Reference Range Interpretation Comments COVID 19 NEGATIVE NEGATIVE Negative result s should be Asymptomatic IH AG treated a s presumptive and (test code = ifinconsistent with COVNONPUIAG) clinical signs and symptoms, or ne cessaryfor patient managem ent, should be tested with an alternativemole cular assay. Negative results do not preclude FHIH-DxM-6xvcxf tion and should not be u sed as the sole basis forp atient management deci sions. Negative result s should beconsidered in the context of a pa tient's recent exposure s,history, presence of cli nical signs and symptoms consistentwith COVID-19. PROTHROMBIN [id number] 17:20:00 Test Item Value Reference Range Interpretation Comments PROTHROMBIN TIME 15.1 SECONDS 9.9-12.8 H PATIENT (test code = PTP) INTERNATIONAL NORMAL 1.3 0.89-1.14 H THE INR IS TO BE USED RATIO (test code = ONLY FOR MONITORING INR) ORAL ANTICOAGULANTTH ERAPY. THE FOLLOWING A RE SUGGESTED RANGE S FROM [facility] LEGE OF CHEST PHYSICIANS:PERNELL CATION INR VALUEPROPHYLAXI S OF VENOUS THROMBOS IS (ORTHOPEDIC AIDAN MAIN) 2.0 - 3.0PROP HYLAXIS OF VENOUS THROM BOSIS (OTHER THAN HIG H-RISK SURGERY) 2.0 - 3.0TRE ATMENT OF DEEP VEIN THROMBOSIS OR PULMONARY EMBOL ISM 2.0 - 3.0PREV ENTION OF SYSTEMIC EMB OLISM TISSUE HEART VA LVES 2.0 - 3.0 AC [place] MYOCARDIAL INFA RCTION (TO PREVENT SYSTEMIC EMBOLI [...] - 3 .5 Specimen comments: .CBC W/AUTO [id number] 17:09:00 Test Item Value Reference Range Interpretation [...] 0.00-0.01 N NRBC#) - XR CHEST 1 [id number] 16:43:00 [facility] 1950 Sex: M FAX: Shara Jackman MD [phone] West: St: PRE Name: RENÉELLE [facility] : 1950 Age/S: 71/M [address] [facility] Unit #: [id number] Loc: [place], [place] Phys: [place] [id number] Acct: [id number] Dis Date: Status: PRE ER PHONE #: [phone] Exam Date: 10/30/2021 1642 FAX #: [phone] Reason: SOB EXAMS: CPT CODE: [id number] XR CHEST 1 V 72243 EXAMINATION: - XR CHEST 1 V. LOCATION:B2. HISTORY: SOB. COMPARISON: None. TECHNIQUE: Single AP view of the chest was obtained. FINDINGS: The heart is enlarged in size. Left AICD device is present. There is mild prominence of the central pulmonary vasculature. No acute osseous abnormality is identified. IMPRESSION: Cardiomegaly with mild central pulmonary congestion. [id number] Reported and signed by: Rupal Gunter M.D. CC: Shara Jackman MD Technologist: JJ GIRALDO Trnscrd Date/Time/By: 10/30/2021 (1642) : By: [email or web address] PAGE 1 Sig rosaline Report FAX: Shara Jackman MD [phone] West: St: PRE -- Name: ELLE MERRITT [facility] : 1950 Age/S: 71/M [address] [facility] Unit #: [id number] Loc: [place], [place]: [place] [id number] Acct: [id number] Dis Date: Status: PRE ER PHONE #: [phone] Date: 10/30/20211641 FAX #: [phone] Reason: SOB EXAMS: CPT CODE: [id number] XR CHEST 1 V 74489 <Continued> Orig Print D/T: S: 10/30/2021 (3003) PAGE 2 Signed Report
[2022-03-30 13:37] LABS: Absolute Lymphocytes (CBC) 0.8 K/uL (0.7-4.9); Hematocrit 39.7 % (39.6-49.0); Lymphocytes % 12.6 % (15.3-44.8); MCV 83.8 fL (80-100); MPV 8.3 fL (7.6-11.3); RBC Red Blood Cell Count 4.74 M/uL (4.33-5.43)
[2022-03-30 13:39] LABS: Protime INR 1.35
[2022-03-30 13:53] LABS: Anisocytosis 3+; Blood Morphology Comment NOTED (NOT SEEN); Platelet Estimate ADEQ; White Blood Cell Scan OK (OK)
[2022-03-30 13:54] LABS: Bilirubin Direct 0.3 mg/dL (0-0.2); Bilirubin Total 0.6 mg/dL (0.2-1.0); Magnesium 1.7 mg/dL (1.8-2.4); Protein, Total 7.1 g/dL (6.4-8.2)
[2022-03-30 13:59] LABS: Potassium 3.2 mmol/L (3.5-5.1); Troponin High Sensitivity 32.2 pg/mL (<58.9)
[2022-03-30] MEDS ORDERED: FUROSEMIDE 40 MG/4 ML VIAL ONE (14:00)
--- NOTE | 2022-03-30 15:45 | RAD REPORT ---
EXAM DESCRIPTION: RAD - Chest Single View - 03/30/2022 3:25 pm CLINICAL HISTORY: CHF COMPARISON: Chest Single View dated 03/24/2022; Chest Single View dated 03/08/2022; Chest Single View dated 11/03/2021 FINDINGS: Lines: Pacemaker/ICD. Lungs: Pulmonary edema is similar Pleural: No significant pleural effusions or pneumothorax. Cardiac: Cardiomegaly. Bones: No acute fractures. Other: IMPRESSION: Pulmonary edema.
[2022-03-30] MEDS ORDERED: FUROSEMIDE 20 MG/ 2ML VIAL ONE (16:42)
--- NOTE | 2022-03-30 16:48 | ER ---
Nurse's Notes [facility] Name: Willi Boudreaux Age: 71 yrs Sex: Male : 1950 Arrival Date: 03/30/2022 Time: 12:02 Bed 6 Private MD: Diagnosis: Acute on chronic combined systolic (congestive) and diastolic (congestive) heart failure Presentation: 03/30 12:33 Chief complaint: Chief complaint: Patient states: increased lower leg swelling, pt aa5 reports he was admitted for CHF on 03/24/22 and was dc'd from hospital 3 days ago. 12:34 Coronavirus screen: At this time, the client does not indicate any symptoms associated aa5 with coronavirus-19. Ebola Screen: No symptoms or risks identified at this time. Initial Sepsis Screen: Does the patient meet any 2 criteria? RR > 20 per min. Does the patient have a suspected source of infection? No. Patient's initial sepsis screen is negative. Risk Assessment: Do you want to hurt yourself or someone else? Patient reports no desire to harm self or others. Onset of symptoms was March 2022. 12:34 Acuity: DAI 3 aa5 12:34 Method Of Arrival: Wheelchair aa5 Triage Assessment: 12:45 General: Appears distressed, comfortable, obese, Behavior is calm, cooperative, bp appropriate for age. Pain: Complains of pain in right foot and left foot. EENT: No deficits noted. Neuro: Level of Consciousness is awake, alert, obeys commands, Oriented to Appropriate for age. Cardiovascular: Rhythm is sinus rhythm. Respiratory: Airway is patent Respiratory effort is labored, Breath sounds with crackles. GI: Abdomen is obese. : No signs and/or symptoms were reported regarding the genitourinary system. Derm: No deficits noted. Musculoskeletal: Swelling present in right leg and left leg. Historical: - Allergies: 12:33 No Known Allergies; aa5 - PMHx: 12:33 diabetes mellitus; Hypertensive disorder; Myocardial infarction; aa5 12:35 home O2 via NC at 5L; COPD; asbestosis; aa5 12:35 CHF; aa5 - PSHx: 12:33 lumbar laminectomy, cervicle spine fusion; pacemaker; aa5 - Immunization history:: Adult Immunizations unknown. - Social history:: Smoking status: Patient/guardian denies using tobacco. Screenin:00 Abuse screen: Denies threats or abuse. Denies injuries from another. Nutritional bp screening: No deficits noted. Tuberculosis screening: No symptoms or risk factors identified. Fall Risk None identified. Assessment: 12:45 General: SEE TRIAGE NOTE. bp 14:00 Reassessment: No changes from previously documented assessment. Patient and/or family bp updated on plan of care and expected duration. Pain level reassessed. 15:00 Reassessment: No changes from previously documented assessment. Patient and/or family bp updated on plan of care and expected duration. Pain level reassessed. 17:00 Reassessment: ADMIT INITIATED. bp 19:00 Reassessment: No changes from previously documented assessment. Patient and/or family ll3 updated on plan of care and expected duration. Pain level reassessed. 20:40 Reassessment: No changes from previously documented assessment. Patient and/or family ll3 updated on plan of care and expected duration. Pain level reassessed. 22:44 Reassessment: No changes from previously documented assessment. Patient and/or family ll3 updated on plan of care and expected duration. Pain level reassessed. Vital Signs: 12:34 BP 112 / 60; Pulse 60; Resp 24 S; Temp 98.1(TE); Pulse Ox 92% on 4 lpm NC; Weight aa5 110.22 kg (R); Height 5 ft. 10 in. (177.80 cm) (R); 14:14 BP 116 / 53; Pulse 60; Resp 20; Pulse Ox 97% on 4 lpm NC; bp 15:00 BP 111 / 50; Pulse 60; Resp 15; Pulse Ox 92% ; bp 16:00 BP 120 / 63; Pulse 66; Resp 15; Pulse Ox 91% ; bp 17:00 BP 102 / 48; Pulse 60; Resp 23; Pulse Ox 96% ; bp 18:00 BP 104 / 67; Pulse 60; Resp 18; Pulse Ox 95% ; bp 19:00 BP 113 / 60; Pulse 60; Resp 19; Pulse Ox 97% ; ll3 20:00 BP 127 / 73; Pulse 60; Resp 18; Pulse Ox 97% ; ll3 22:52 BP 121 / 70; Pulse 60; Resp 19; Pulse Ox 97% ; ll3 12:34 Body Mass Index 34.87 (110.22 kg, 177.80 cm) aa5 ED Course: 12:02 Patient arrived in ED. as 12:33 Arm band placed on. aa5 12:35 Triage completed. aa5 13:00 Patient has correct armband on for positive identification. Bed in low position. Call bp light in reach. Side rails up X2. 13:11 Christiano Guerrero NP is PHCP. pm1 13:11 Yunier Mills MD is Attending Physician. pm1 13:19 Giovanni Martinez, DONALD is Primary Nurse. bp 13:20 Inserted saline lock: 22 gauge in right hand, using aseptic technique. Blood collected. bp 15:27 Chest Single View XRAY In Process Unspecified. EDMS 16:47 Cristiana Sheppard MD is Hospitalizing Provider. pm1 18:27 Frank Taveras MD is Hospitalizing Provider. pm1 19:13 Primary Nurse role handed off by Giovanni Martinez, DONALD mw2 22:52 No provider procedures requiring assistance completed. Patient admitted, IV remains in ll3 place. Administered Medications: 14:00 Drug: Lasix (furosemide) 40 mg Route: IVP; Site: right wrist; bp 16:43 Follow up: Response: No adverse reaction bp 16:35 Not Given (Physician Discretion; change to 20 mgg): Lasix (furosemide) 40 mg IVP once; pm1 give over 2 minutes 16:43 Drug: Lasix (furosemide) 20 mg Route: IVP; Site: right wrist; bp 16:54 Follow up: Response: No adverse reaction bp 18:45 Drug: Potassium Chloride 40 mEq Route: PO; bp 19:06 Follow up: Response: No adverse reaction bp 19:05 Not Given (Patient Refused): Potassium Chloride 20 mEq IV at calculated rate once; bp administer over 1-2 hours Medication: 22:53 VIS not applicable for this client. 3 Outcome: 16:48 Decision to Hospitalize by Provider. pm1 22:52 Admitted to Tele accompanied by tech, via stretcher, room 407, Report called to 3 Receiving RN 22:52 Condition: stable 22:52 Instructed on the need for admit, Demonstrated understanding of instructions. 23:21 Patient left the ED. 3 Signatures: Dispatcher [employer] EDMS Lida Harper Audri, RN RN [facility] Christiano Guerrero NP COMPATIBILITY TEST ENGINEER pm1 Giovanni Martinez RN RN bp Kaz Marrero mw2 Jessica Werner RN RN ll3 Corrections: (The following items were deleted from the chart) 12:35 12:33 Chief complaint: aa5 aa5 12:38 12:34 Initial Sepsis Screen: Does the patient meet any 2 criteria? No. Patient's aa5 initial sepsis screen is negative. Does the patient have a suspected source of infection? No. Patient's initial sepsis screen is negative. aa5
--- NOTE | 2022-03-30 16:48 | EDPHYS ---
Physician Documentation [facility] Name: Willi Boudreaux Age: 71 yrs Sex: Male : 1950 Arrival Date: 03/30/2022 Time: 12:02 Bed 6 Private MD: ED Physician Yunier Mills HPI: 03/30 12:48 This 71 yrs old Black Male presents to ER via Wheelchair with complaints of fluid pm1 retention. 12:48 The patient presents with swelling. The complaints affect the right leg and left leg. pm1 Context: resulted from Congestive heart failure. Onset: The symptoms/episode began/occurred 3 day(s) ago. Modifying factors: The symptoms are alleviated by nothing. the symptoms are aggravated by nothing. Associated signs and symptoms: Pertinent negatives Shortness of breath, chest pain. Severity of symptoms: in the emergency department the symptoms are unchanged. The patient has been recently seen by a physician: Dr. Antonio today. Historical: - Allergies: 12:33 No Known Allergies; aa5 - PMHx: 12:33 diabetes mellitus; Hypertensive disorder; Myocardial infarction; aa5 12:35 home O2 via NC at 5L; COPD; asbestosis; aa5 12:35 CHF; aa5 - PSHx: 12:33 lumbar laminectomy, cervicle spine fusion; pacemaker; aa5 - Immunization history:: Adult Immunizations unknown. - Social history:: Smoking status: Patient/guardian denies using tobacco. ROS: 12:48 Constitutional: Negative for fever, chills, and weight loss. pm1 12:48 Abdomen/GI: Negative for abdominal pain, nausea, vomiting, diarrhea, and constipation, Back: Negative for injury and pain, MS/Extremity: Negative for injury and deformity, Skin: Negative for injury, rash, and discoloration, Neuro: Negative for headache, weakness, numbness, tingling, and seizure. 12:48 Cardiovascular: Positive for edema, Negative for chest pain. 12:48 Respiratory: Negative for cough, shortness of breath. 12:48 All other systems are negative. Exam: 12:48 Constitutional: This is a well developed, well nourished patient who is awake, alert, pm1 and in no acute distress. Head/Face: Normocephalic, atraumatic. 12:48 Back: No spinal tenderness. No costovertebral tenderness. Full range of motion. Skin: Warm, dry with normal turgor. Normal color with no rashes, no lesions, and no evidence of cellulitis. MS/ Extremity: Pulses equal, no cyanosis. Neurovascular intact. Full, normal range of motion. 12:48 Cardiovascular: Exam negative for acute changes, Rate: normal, Rhythm: regular, Pulses: no pulse deficits are appreciated, Heart sounds: normal. 12:48 Respiratory: Exam negative for acute changes, respiratory distress, shortness of breath, Breath sounds: decreased breath sounds, are located in both bases. 12:48 Abdomen/GI: Exam negative for acute changes, Inspection: abdomen appears normal, Palpation: abdomen is soft and non-tender, in all quadrants. 12:48 Neuro: Exam negative for acute changes, Orientation: is normal, Mentation: is normal, Motor: is normal, moves all fours. Vital Signs: 12:34 BP 112 / 60; Pulse 60; Resp 24 S; Temp 98.1(TE); Pulse Ox 92% on 4 lpm NC; Weight aa5 110.22 kg (R); Height 5 ft. 10 in. (177.80 cm) (R); 14:14 BP 116 / 53; Pulse 60; Resp 20; Pulse Ox 97% on 4 lpm NC; bp 15:00 BP 111 / 50; Pulse 60; Resp 15; Pulse Ox 92% ; bp 16:00 BP 120 / 63; Pulse 66; Resp 15; Pulse Ox 91% ; bp 17:00 BP 102 / 48; Pulse 60; Resp 23; Pulse Ox 96% ; bp 18:00 BP 104 / 67; Pulse 60; Resp 18; Pulse Ox 95% ; bp 19:00 BP 113 / 60; Pulse 60; Resp 19; Pulse Ox 97% ; ll3 20:00 BP 127 / 73; Pulse 60; Resp 18; Pulse Ox 97% ; ll3 22:52 BP 121 / 70; Pulse 60; Resp 19; Pulse Ox 97% ; ll3 12:34 Body Mass Index 34.87 (110.22 kg, 177.80 cm) aa5 MDM: 13:11 Patient medically screened. pm1 14:36 Data reviewed: vital signs. Data interpreted: Pulse oximetry: on 4L(s) per nasal pm1 canula, Patient uses oxygen at home. Patient denies any increased baseline shortness of breath is 97 %. Interpretation: normal. 16:08 Physician consultation: Dakota Mercado was contacted at 16:08, regarding consult, pm1 patient's condition, recommends outpatient follow up with Dr. Bean. Can give the patient additional Lasix 40 mg in the ER. Patient does not meet admission criteria since his only complaint is lower extremity edema. Patient without shortness of breath or chest pain. chest x-ray without any acute changes. 16:35 Physician consultation: Jogre Antonio MD was called at 16:36, was contacted at 16:36, pm1 regarding consult, patient's condition, would like medications started, Lasix 60 mg Q8 hr and metolazone 2.5 mg daily and consult Marisela and will see him in the morning. 16:46 Counseling: I had a detailed discussion with the patient and/or guardian regarding: the pm1 historical points, exam findings, and any diagnostic results supporting the discharge/admit diagnosis, lab results, radiology results, the need for further work-up and treatment in the hospital. 03/30 12:48 Order name: Basic Metabolic Panel; Complete Time: 14:02 iw 03/30 12:48 Order name: CBC with Diff; Complete Time: 14:02 iw 03/30 12:48 Order name: Troponin HS; Complete Time: 14:02 iw 03/30 13:13 Order name: LFT's; Complete Time: 14:02 pm1 03/30 13:13 Order name: Magnesium; Complete Time: 14:02 pm1 03/30 13:13 Order name: NT PRO-BNP; Complete Time: 14:02 pm1 03/30 12:37 Order name: Chest Single View XRAY; Complete Time: 15:51 aa5 03/30 13:13 Order name: PT-INR; Complete Time: 13:40 pm1 03/30 13:40 Order name: CBC Smear Scan; Complete Time: 14:02 EDMS 03/30 16:48 Order name: COVID-19 SARS RT PCR (Document "Date of Onset" if Symptomatic); Complete pm1 Time: 18:27 03/30 12:48 Order name: EKG; Complete Time: 12:48 iw 03/30 12:48 Order name: Cardiac monitoring; Complete Time: 13:19 iw 03/30 12:48 Order name: EKG - Nurse/Tech; Complete Time: 13:20 iw 20 12:48 Order name: IV Saline Lock; Complete Time: :03/30 12:48 Order name: Labs collected and sent; Complete Time: 03/30 12:48 Order name: O2 Per Protocol; Complete Time: 03/30 12:48 Order name: O2 Sat Monitoring; Complete Time: :03/30 16:58 Order name: Diet Heart Healthy; Complete Time: 16:58 bp Administered Medications: 14:00 Drug: Lasix (furosemide) 40 mg Route: IVP; Site: right wrist; bp 16:43 Follow up: Response: No adverse reaction bp 16:35 Not Given (Physician Discretion; change to 20 mgg): Lasix (furosemide) 40 mg IVP once; pm1 give over 2 minutes 16:43 Drug: Lasix (furosemide) 20 mg Route: IVP; Site: right wrist; bp 16:54 Follow up: Response: No adverse reaction bp 18:45 Drug: Potassium Chloride 40 mEq Route: PO; bp 19:06 Follow up: Response: No adverse reaction bp 19:05 Not Given (Patient Refused): Potassium Chloride 20 mEq IV at calculated rate once; bp administer over 1-2 hours Disposition Summary: 03/30/22 16:48 Hospitalization Ordered Hospitalization Status: Inpatient Admission pm1 Location: Telemetry/[facility] (Inpatient) pm1 Condition: Stable pm1 Problem: new pm1 Symptoms: have improved pm1 Bed/Room Type: Standard pm1 Provider: Frank Taveras(03/30/22 18:27) pm1 Room Assignment: [facility](03/30/22 21:48) Diagnosis - Acute on chronic combined systolic (congestive) and diastolic (congestive) heart pm1 failure Forms: - Medication Reconciliation Form pm1 - SBAR form pm1 Signatures: Dispatcher [employer] EDMS Chula Bender RN RN bb Yumi Gonzalez RN RN Bibi Molina RN RN aa5 Beny Uribe, SHUCKER-C SHUCKER-Cla1 Christiano Guerrero, JODEE EDUCATION AND TRAINING COORDINATOR pm1 Giovanni Martinez RN RN bp Corrections: (The following items were deleted from the chart) 16:39 16:08 Physician consultation: Dakota Jess was contacted at 16:08, regarding consult, pm1 patient's condition, recommends outpatient follow up with Dr. Bean. Can give the patient additional Lasix 40 mg in the ER. Patient does not meet admission criteria since his only complaint is lower extremity edema. Patient without shortness of breath or chest pain. chest x-ray without any acute changes, pm1 18:27 16:48 Cristiana Sheppard pm1 pm1 21:48 16:48 pm1 elvin
[2022-03-30] MEDS ORDERED: POTASSIUM CL SA 10 MEQ TAB PO ONE (19:03)
--- NOTE | 2022-03-30 19:19 | P.HP ---
Certification for Inpatient Patient admitted to: Inpatient With expected LOS: >2 Midnights Patient will require the following post-hospital care: None Practitioner: I am a practitioner with admitting privileges, knowledge of patient current condition, hospital course, and medical plan of care. Services: Services provided to patient in accordance with Admission requirements found in Title 42 Section 412.3 of the Code of Federal Regulations Patient History Date of Service: 03/30/22 Reason for admission: CHF exacerbation History of Present Illness: 71-year-old male with history of systolic congestive heart failure last known EF 43% and October, insulin-dependent diabetes, hypertension, CAD, pacemaker defibrillator in place presents the emergency department for dyspnea on exertion, worsening lower extremity edema. He was discharged in the hospital a few days ago he was evaluated by his business administration teacher today who sent him back to the hospital for further diuresis. He is on oxygen at home5 L. His chest x-ray demonstrated pulmonary edema his labs were significant for elevated BNP, hypokalemia, hypomagnesemia. Will admit for further evaluation and management of CHF exacerbation. Allergies No Known Allergies Allergy (Verified 03/07/22 00:07) Home Medications: Amiodarone HCl [Cordarone*] 200 mg PO BID #60 tab 03/27/22 Aspirin [Aspirin EC 81 MG] 81 mg PO DAILY #30 tablet. 03/27/22 Atorvastatin Calcium [Lipitor] 80 mg PO DAILY #30 tab 03/27/22 Clopidogrel Bisulfate [Plavix*] 75 mg PO DAILY #30 tablet 03/27/22 Fluticasone [Flonase 50MCG Nasal Show Low*] 1 sprays YUE DAILY PRN #1 btl 03/27/22 Furosemide [Lasix] 80 mg PO BID #60 03/27/22 Insulin NPH Human [Novolin N (Humulin N)*] 10 units SQ BIDWM #10 ml 03/27/22 Metformin ER [Glucophage ER*] 500 mg PO BID #60 tab.sa 03/27/22 Sacubitril/Valsartan [Entresto 24 mg-26 mg Tablet] 1 tab PO BID #60 tab 03/27/22 bisoproloL fumarate [Zebeta*] 5 mg PO DAILY #30 03/27/22 - Past Medical/Surgical History Diabetic: Yes -: HTN -: HLD -: DM insulin-dependent -: CAD -: myocardial infarcation -: CHF/systolic -: pacemaker/defibrillator -: cardiac stent x2 -: lumbar laminectomy -: cervical spine surgery Psychosocial/ Personal History: Patient lives at home, alone - Family History Family History: Reviewed- Non-Contributory - Social History Smoking Status: Former smoker Alcohol use: No CD- Drugs: No Caffeine use: Yes Place of Residence: Home Review of Systems 10-point ROS is otherwise unremarkable Respiratory: Shortness of Breath, SOB with Excertion Cardiovascular: Edema, As per HPI Physical Examination - Physical Exam General: Alert, In no apparent distress, Oriented x3, Obese HEENT: Atraumatic, PERRLA, Mucous membr. moist/pink, EOMI, Sclerae nonicteric Neck: Supple, 2+ carotid pulse no bruit, No LAD, Without JVD or thyroid abnormality Respiratory: Diminished, Crackles/rales Cardiovascular: Regular rate/rhythm, Normal S1 S2, Edema (3+ pitting edema bilateral lower extremities) Capillary refill: <2 Seconds Gastrointestinal: Normal bowel sounds, No tenderness Musculoskeletal: No tenderness Integumentary: No rashes Neurological: Normal gait, Normal speech, Normal strength at 5/5 x4 extr, Normal tone, Normal affect - Studies Laboratory Data (last 24 hrs) 03/30/22 13:20: PT 14.9 H, INR 1.35 03/30/22 13:20: Magnesium 1.7 L, Total Bilirubin 0.6, AST 17, ALT 19, Alkaline Phosphatase 150 H 03/30/22 13:20: WBC 6.7, Hgb 12.5 L, Hct 39.7, Plt Count 212 03/30/22 13:20: Sodium 141, Potassium 3.2 L, BUN 12, Creatinine 1.16, Glucose 176 H Assessment and Plan - Plan Assessment: Anasarca secondary to acute on chronic systolic congestive heart failure with pacemaker/defibrillator Hypokalemia/hypomagnesemia Diabetes mellitus type 2insulin-dependent History of CAD with previous stent placement Paroxysmal atrial fibrillation hypertension Plan: Anasarca secondary to acute on chronic systolic congestive heart failure with pacemaker/defibrillator: ED provider discussed case with cardiology who recommends Lasix 60 mg IV 3 times daily as well as addition of metolazone 2.5 mg daily patient was on Lasix 80 p.o. twice daily, he was compliant upon discharge from the hospital reports he is diuresing but not noticing significant provemen t in his dyspnea or edema. Last echocardiogram October of this year demonstrated EF of 43%. Appreciate further input from cardiology. Hypokalemia/hypomagnesemia: We will need to continue with diuresis, protocol in place for placement. Diabetes mellitus type 2insulin-dependent: ACHS Accu-Chek, sliding scale insulin History of CAD with previous stent placement: Home medications have been continued Paroxysmal atrial fibrillation: Continued amiodarone, patient not on anticoagulation although he does take aspirin/Plavix. Monitor on telemetry. hypertension: Continue home medications. DVT PPX: Lovenox Code status: Full Discharge Plan: Home Plan to discharge in: 72 Hours - Advance Directives Does patient have a Living Will: No Does patient have a Durable POA for Healthcare: No - Code Status/Comfort Care Code Status Assessed: Yes (Full code) Critical Care: No Time Spent Managing Pts Care (In Minutes): 70
[2022-03-30] MEDS ORDERED: ONDANSETRON 4 MG/2 ML VIAL IV PRN (20:31)
[2022-03-30] MEDS ORDERED: GLUCAGON 1 MG/VIAL IM PRN (20:31)
[2022-03-30] MEDS ORDERED: D50W 25 GM/50 ML SYRINGE IV PRN (20:31)
[2022-03-30] MEDS: INSULIN -REGULAR HUMAN 50 UNIT/0.5 ML ML SQ SCH (21:00)
[2022-03-30] MEDS ORDERED: D10W 125 ML IV PRN (21:00)
[2022-03-30] MEDS: SACUBITRIL/VALSARTAN 24/26 MG TAB PO SCH (23:51)
[2022-03-30] MEDS: FUROSEMIDE 40 MG/4 ML VIAL IV SCH (23:51)
[2022-03-30] MEDS: ATORVASTATIN 80 MG TAB PO SCH (23:51)
[2022-03-30] MEDS: AMIODARONE HCL 200 MG TAB PO SCH (23:52)
[2022-03-31 01:07] VITALS: BMI 34.7
[2022-03-31 03:43] LABS: Absolute Lymphocytes (CBC) 1.2 K/uL (0.7-4.9); Lymphocytes % 20.2 % (15.3-44.8); MCV 83.2 fL (80-100); MPV 9.2 fL (7.6-11.3); RBC Red Blood Cell Count 5.05 M/uL (4.33-5.43)
[2022-03-31 03:58] LABS: Bilirubin Total 0.5 mg/dL (0.2-1.0); Magnesium 1.8 mg/dL (1.8-2.4); Potassium 3.4 mmol/L (3.5-5.1)
[2022-03-31] MEDS ORDERED: POTASSIUM CL SA 10 MEQ TAB PO ONE ×2 (05:01→13:16)
[2022-03-31] MEDS: INSULIN -REGULAR HUMAN 50 UNIT/0.5 ML ML SQ SCH ×4 (07:30→21:28)
--- NOTE | 2022-03-31 07:32 | P.PN ---
Date of Service: 03/31/22 Subjective: slight improvement, still with significant lower extremity edema ROS: 10 point ROS as noted above, otherwise negative Physical exam GEN: Alert, oriented HEENT: Normal conjunctiva, sclera anicteric CV: Regular rate and rhythm, 3+ pitting edema b/l lower extremities Pulm: mildly labored on 4L NC, b/l rales ABD: Soft, nontender, nondistended Neuro: Normal speech, normal affect Problem List Anasarca secondary to acute on chronic systolic congestive heart failure with pacemaker/defibrillator Hypokalemia/hypomagnesemia Diabetes mellitus type 2insulin-dependent History of CAD with previous stent placement Paroxysmal atrial fibrillation hypertension continue lasix IV 60mg TID, metolazone 2.5mg daily as recommended by cardiology. home dose: lasix 80mg BID monitor electrolytes, replace as needed sliding scale insulin confirm home meds, continue as appropriate continue amio for afib, aspirin/plavix; not on full anticoagulation telemetry code: full Dispo: home, ~2 days needs further diuresis Time Spent Managing Pts Care (In Minutes): 35
[2022-03-31] MEDS: NPH (HUMAN) 100 UNITS/ML INSULIN SQ SCH ×2 (08:00→18:07)
[2022-03-31] MEDS ORDERED: BISOPROLOL 5 MG TABLET PO SCH (09:00)
[2022-03-31] MEDS: SACUBITRIL/VALSARTAN 24/26 MG TAB PO SCH ×2 (09:00→21:53)
[2022-03-31] MEDS: METOLAZONE 2.5 MG TABLET PO SCH (09:00)
[2022-03-31] MEDS: FUROSEMIDE 40 MG/4 ML VIAL IV SCH ×2 (10:25→18:06)
[2022-03-31] MEDS: AMIODARONE HCL 200 MG TAB PO SCH ×2 (10:27→21:53)
[2022-03-31] MEDS: CLOPIDOGREL 75 MG TABLET PO SCH (10:27)
[2022-03-31] MEDS: ASPIRIN EC 81 MG TAB PO SCH (10:27)
[2022-03-31] MEDS: ENOXAPARIN 40 MG/0.4 ML SQ SCH (10:29)
[2022-03-31] MEDS ORDERED: SACUBITRIL/VALSARTAN 24/26 MG TAB PO SCH (11:00)
[2022-03-31] MEDS: carvediloL 6.25 MG TAB PO SCH (21:00)
[2022-03-31] MEDS ORDERED: SACUBITRIL/VALSARTAN 49/51 MG TAB PO SCH ×2 (21:00)
[2022-03-31] MEDS: ATORVASTATIN 80 MG TAB PO SCH (21:26)
[2022-03-31] MEDS: CODEINE 30MG/APAP 300MG TAB PO PRN (21:52)
[2022-04-01] MEDS: FUROSEMIDE 40 MG/4 ML VIAL IV SCH ×4 (01:00→23:04)
[2022-04-01 03:47] LABS: Hematocrit 37.5 % (39.6-49.0); Lymphocytes % 15.5 % (15.3-44.8); MCV 83.4 fL (80-100); MPV 9.3 fL (7.6-11.3); RBC Red Blood Cell Count 4.49 M/uL (4.33-5.43)
[2022-04-01 04:04] LABS: Albumin 2.7 g/dL (3.4-5.0); Bilirubin Total 0.5 mg/dL (0.2-1.0); Magnesium 1.7 mg/dL (1.8-2.4); Potassium 3.2 mmol/L (3.5-5.1); Protein, Total 6.3 g/dL (6.4-8.2)
[2022-04-01] MEDS: CODEINE 30MG/APAP 300MG TAB PO PRN (04:36)
[2022-04-01] MEDS ORDERED: MAGNESIUM SULFATE 1 gm IVPB 1 GM/100 ML BAG IV ONE (05:00)
[2022-04-01] MEDS ORDERED: POTASSIUM CL SA 10 MEQ TAB PO ONE ×2 (05:00→20:03)
--- NOTE | 2022-04-01 07:01 | P.PN ---
Date of Service: 04/01/22 Subjective: diuretics held secondary to hypotension swelling and breathing slightly improved still dyspneic still with significant pitting edema / anasarca ROS: 10 point ROS as noted above, otherwise negative Physical exam GEN: Alert, oriented HEENT: Normal conjunctiva, sclera anicteric CV: Regular rate and rhythm, 2+ pitting edema b/l lower extremities Pulm: mildly labored on 4L NC, b/l rales ABD: Soft, nontender, nondistended Neuro: Normal speech, normal affect : scrotal edema Problem List Anasarca secondary to acute on chronic systolic congestive heart failure with pacemaker/defibrillator Hypokalemia/hypomagnesemia Diabetes mellitus type 2insulin-dependent History of CAD with previous stent placement Paroxysmal atrial fibrillation hypertension continue lasix IV 60mg TID, metolazone 2.5mg daily as recommended by cardiology. home dose: lasix 80mg BID had to hold due to low BP last night consult nephrology for further recommendations, possibly albumin may help temporarily sliding scale insulin continue amio for afib, aspirin/plavix; not on full anticoagulation telemetry slow improvement, remains with anasarca code: full Dispo: home, ~1-2 days needs further diuresis; with anasarca, difficulty due to low blood pressure unsafe for discharge home, has failed twice already Time Spent Managing Pts Care (In Minutes): 35
--- NOTE | 2022-04-01 07:26 | EKG ---
Test Date: 2022-03-30 Test Time: 13:18:23 Reheater: GERARDO MEASUREMENT RESULTS: Intervals: Rate: 60 OK: QRSD: 212 QT: 546 QTc: 546 [place]: P: OK: QRS: 207 T: -4 INTERPRETIVE STATEMENTS: Ventricular-paced rhythm Abnormal ECG Compared to ECG 03/24/2022 18:32:36 No significant changes Electronically Signed On 04-01-22 07:19:43 CDT by Alon Aaron
[2022-04-01] MEDS: INSULIN -REGULAR HUMAN 50 UNIT/0.5 ML ML SQ SCH ×4 (07:30→23:14)
[2022-04-01] MEDS: METOLAZONE 2.5 MG TABLET PO SCH (09:00)
[2022-04-01] MEDS: ENOXAPARIN 40 MG/0.4 ML SQ SCH (10:28)
[2022-04-01] MEDS: SACUBITRIL/VALSARTAN 24/26 MG TAB PO SCH (10:28)
[2022-04-01] MEDS: CLOPIDOGREL 75 MG TABLET PO SCH (10:29)
[2022-04-01] MEDS: carvediloL 6.25 MG TAB PO SCH ×2 (10:29→21:00)
[2022-04-01] MEDS: ASPIRIN EC 81 MG TAB PO SCH (10:30)
[2022-04-01] MEDS: AMIODARONE HCL 200 MG TAB PO SCH ×2 (10:30→23:03)
[2022-04-01] MEDS: NPH (HUMAN) 100 UNITS/ML INSULIN SQ SCH ×2 (10:31→17:00)
[2022-04-01] MEDS ORDERED: SACUBITRIL/VALSARTAN 24/26 MG TAB PO SCH (20:02)
[2022-04-01] MEDS: ATORVASTATIN 80 MG TAB PO SCH (23:03)
[2022-04-02] MEDS: FUROSEMIDE 40 MG/4 ML VIAL IV SCH ×2 (03:00→09:00)
[2022-04-02 04:53] LABS: Absolute Lymphocytes (CBC) 1.1 K/uL (0.7-4.9); Hematocrit 37.8 % (39.6-49.0); Lymphocytes % 21.3 % (15.3-44.8); MCV 83.4 fL (80-100); MPV 9.3 fL (7.6-11.3); RBC Red Blood Cell Count 4.53 M/uL (4.33-5.43)
[2022-04-02 05:37] LABS: Albumin 2.7 g/dL (3.4-5.0); Bilirubin Total 0.4 mg/dL (0.2-1.0); Phosphorus 2.8 mg/dL (2.5-4.9); Protein, Total 6.9 g/dL (6.4-8.2); Thyroid Stimulating Hormone 1.54 uIU/mL (0.360-3.740); Uric Acid 4.9 mg/dL (3.5-7.2)
[2022-04-02] MEDS: INSULIN -REGULAR HUMAN 50 UNIT/0.5 ML ML SQ SCH ×4 (07:30→20:17)
--- NOTE | 2022-04-02 07:31 | P.PN ---
Date of Service: 04/02/22 Subjective: slight improvement in breathing and edema lasix held secondary to low blood pressure again +cough. + stuffed nose patient placed on 10L NC per EMR overnight; down to 5L this morning ROS: 10 point ROS as noted above, otherwise negative Physical exam GEN: Alert, oriented HEENT: Normal conjunctiva, sclera anicteric CV: Regular rate and rhythm, 2+ pitting edema b/l lower extremities Pulm: mildly labored on 5L NC, b/l rales ABD: Soft, nontender, nondistended Neuro: Normal speech, normal affect : scrotal edema Problem List Anasarca secondary to acute on chronic systolic congestive heart failure with pacemaker/defibrillator Hypokalemia/hypomagnesemia Diabetes mellitus type 2insulin-dependent History of CAD with previous stent placement Paroxysmal atrial fibrillation hypertension continue diuretics; nephrology consulted for assistance with further adjustments difficulty diuresing with hypotension discussed with cardiology, ok to hold entresto, would like coreg continued sliding scale insulin continue amio for afib, aspirin/plavix; not on full anticoagulation telemetry slow improvement, remains with anasarca code: full Dispo: home, ~1-2 days needs further diuresis; with anasarca, difficulty due to low blood pressure - 90s/50s at times unsafe for discharge home, has failed twice already Time Spent Managing Pts Care (In Minutes): 35
[2022-04-02] MEDS ORDERED: OXYMETAZOLINE HCL 0.05% 15ML NAS PRN (08:57)
[2022-04-02] MEDS: METOLAZONE 2.5 MG TABLET PO SCH (09:00)
[2022-04-02] MEDS: carvediloL 6.25 MG TAB PO SCH (09:00)
[2022-04-02] MEDS: CLOPIDOGREL 75 MG TABLET PO SCH (09:06)
[2022-04-02] MEDS: AMIODARONE HCL 200 MG TAB PO SCH ×2 (09:07→20:15)
[2022-04-02] MEDS: ENOXAPARIN 40 MG/0.4 ML SQ SCH (09:07)
[2022-04-02] MEDS: NPH (HUMAN) 100 UNITS/ML INSULIN SQ SCH ×2 (09:07→17:28)
[2022-04-02] MEDS: ASPIRIN EC 81 MG TAB PO SCH (09:07)
--- NOTE | 2022-04-02 09:35 | RAD REPORT ---
EXAM DESCRIPTION: Javier Single View04/02/2022 9:13 am CLINICAL HISTORY: Shortness of breath COMPARISON: March 2020 FINDINGS: Mild bilateral pulmonary opacities appear mostly resolved The heart remains enlarged. Pacemaker leads in place
--- NOTE | 2022-04-02 11:21 | RAD REPORT ---
EXAM DESCRIPTION: USExtrem Venous W Compress Bil04/02/2022 10:50 am CLINICAL HISTORY: Leg pain COMPARISON: none FINDINGS: The common femoral, superficial femoral, popliteal and posterior tibial veins bilaterally are compressible and demonstrate augmentation. Doppler demonstrates good flow. Grayscale, color and spectral analysis performed on all vessels IMPRESSION: No evidence of deep venous thrombosis involving either lower extremity.
--- NOTE | 2022-04-02 12:38 | CON ---
Date of Consultation: 03/31/2022 Reason For Consultation: Congestive heart failure. History Of Present Illness: Mr. Boudreaux is 71. He was just discharged from the hospital for the [facility] reason. Comes back with shortness of breath, PND, orthopnea, pedal edema. Chest x-ray showed con gestive heart failure. Echocardiogram recently showed an ejection fraction of 43%. He denied chest pain, nausea, vomiting, diaphoresis, palpitations, syncope, fever or chills. Past Medical History: Includes atrial fibrillation, systolic congestive heart failure. He has a his tory of automatic internal cardiac defibrillator with pacemaker. He has a history of CAD and dyslipi demia. Allergies: NONE. Review of Systems: Negative. Social History: Negative. Family History: Noncontributory. Medications: At home include aspirin, Lipitor, Lasix, Plavix, amiodarone, insulin, metformin, Entres to, and . Physical Examination: General: He appeared to be in no acute distress. Vital Signs: Stable, sinus rhythm, afebrile. HEENT: Negative. Neck: Supple without any bruit, lymphadenopathy, JVD, or thyromegaly. Chest: Revealed some rales both bases. Cardiac: Revealed a regular rhythm and rate with no gallops, murmurs, or rubs. Abdomen: Benign. Extremities: Revealed 1+ edema. Diagnostic Data: EKG showed paced rhythm. Potassium is 3.4. BNP is 1993. Chest x-ray shows CHF. Echo in October showed an ejection fraction of 43%. Impression And Plan: 1.Acute on chronic systolic congestive heart failure. 2.Atrial fibrillation, on amiodarone, Plavix. He is in a paced rhythm. 3.Status post pacemaker, defibrillator. 4.Coronary artery disease, stable. 5.Dyslipidemia. 6.Hypokalemia that needs to be corrected. I think we need to continue his regimen at home including amiodarone, aspirin, Lipitor, Lasix, Plavix, insulin, metformin, Entresto. I would like him to swit ch to carvedilol at least 3.125 b.i.d. I think we should increase his Entresto dose if to lerated, increase his IV Lasix, maybe doing another Lexiscan on Mr. Boudreaux sometime down the road. I will continue to follow him. We will need to repeat an echocardiogram at this point. MICHELLE/[place] Voice ID: [id number] Report ID: [id number]
--- NOTE | 2022-04-02 12:58 | P.CNS ---
Date of Consult: 04/02/22 Reason for Consult: Volume overload Primary Care Provider: Darcy Chief Complaint: CHF exacerbation History of Present Illness: 71-year-old male with history of reported systolic congestive heart failure last reported EF of 43%, a hx of chronic insulin-dependent diabetes, CAD with prior stents, pacemaker defibrillator in place who presents the emergency department for dyspnea on exertion, worsening lower extremity edema based on referral from his OP provider. He was recently in the hospital earlier in the month with the same. He is on oxygen at home5 L. He reports taking a higer dose of loop diuretic at home but despite that was still experiencing peripheral edema. He reports walking about 50 ft and then having to stop. He denies CP. Allergies No Known Allergies Allergy (Verified 03/07/22 00:07) Home Medications: Amiodarone HCl [Cordarone*] 200 mg PO BID #60 tab 03/27/22 Aspirin [Aspirin EC 81 MG] 81 mg PO DAILY #30 tablet. 03/27/22 Atorvastatin Calcium [Lipitor] 80 mg PO DAILY #30 tab 03/27/22 Clopidogrel Bisulfate [Plavix*] 75 mg PO DAILY #30 tablet 03/27/22 Fluticasone [Flonase 50MCG Nasal [place]*] 1 sprays YUE DAILY PRN #1 btl 03/27/22 Furosemide [Lasix] 80 mg PO BID #60 03/27/22 Insulin NPH Human [Novolin N (Humulin N)*] 10 units SQ BIDWM #10 ml 03/27/22 Metformin ER [Glucophage ER*] 500 mg PO BID #60 tab.sa 03/27/22 Sacubitril/Valsartan [Entresto 24 mg-26 mg Tablet] 1 tab PO BID #60 tab 03/27/22 bisoproloL fumarate [Zebeta*] 5 mg PO DAILY #30 03/27/22 - Past Medical/Surgical History Diabetic: Yes -: HTN -: HLD -: DM insulin-dependent -: CAD -: myocardial infarcation -: CHF/systolic -: pacemaker/defibrillator -: cardiac stent x2 -: lumbar laminectomy -: cervical spine surgery Psychosocial/ Personal History: Patient lives at home, alone - Social History Alcohol use: No CD- Drugs: No Caffeine use: Yes Place of Residence: Home Review of Systems General: Weakness Eyes: Unremarkable ENT: Unremarkable Respiratory: SOB with Excertion Cardiovascular: Edema Gastrointestinal: Unremarkable Genitourinary: Unremarkable Musculoskeletal: Unremarkable Integumentary: Unremarkable Neurological: Unremarkable Lymphatics: Unremarkable Physical Examination Temp Pulse Resp BP Pulse Ox 97 F 61 22 H 124/73 99 04/02/22 12:00 04/02/22 12:00 04/02/22 12:00 04/02/22 12:00 04/02/22 12:00 General: Alert, In no apparent distress, Oriented x3, Cooperative HEENT: Atraumatic, Normocephalic, EOMI Neck: Supple (JVD difficult to appreciate) Respiratory: Clear to auscultation bilaterally, Normal air movement Cardiovascular: Regular rate/rhythm (2+ pitting edema below knee level b/l), Normal S1 S2 Gastrointestinal: Soft and benign (Obese, mild distention), No tenderness Musculoskeletal: No swelling Integumentary: No rashes, No breakdown Neurological: Normal speech, Normal affect Conclusions/Impression: 1. Volume overload 2. Acute on chronic systolic CHF 3. Peripheral edema 4. Chronic pulmonary edema 5. Ischemic cardiomyopathy 6. Prior LEELA 7. Hypokalemia 1. Pt's renal function tests at this fortunately appear to be stable and he is putting out decent UOP but was unfortunately re-admitted for his CHF. Need to optimize his HF regimen and agree with continuing Entresto as study show it does help reduce risk of re-hospitalization but his BP will likely preclude dose titration at this point. 2. Will switch maintenance PO loop diuretic to Torsemide as studies have shown may be more effective in CHF, TORIC study suggested a lower mortality rate. Will place on 40 mg PO qd and titrate as needed. To counter hypokalemia and given indication in systolic CHF, will place on an aldosterone antagonist. 3. Will cont Metolazone for sequential nephron blockade but given its potent effects will have to monitor for any pre renal signs in the following weeks and monitor lytes closely. 4. His BP has been marginal at times, so agree with lowering Coreg dose to 3.125 mg BID and placing holding parameters on Entresto, Coreg and Spironolactone to hold if SBP < 100 Thank you for this referral, Bandar Dacosta MD, [facility]
--- NOTE | 2022-04-02 14:57 | PN ---
Date of Progress Note: 04/01/2022 Mr. Boudreaux was admitted on 03/30/2022 with congestive heart failure. He has a history of an ejecti on fraction of 43%, pacemaker, defibrillator, atrial fibrillation, CAD and dyslipidemia. Potassium w as 3.4. BNP was 1993. He has been diuresed on IV Lasix, except that his blood pressure has been mar ginal. We had plan to switch him from to low-dose carvedilol. I would cut down on the do se of Entresto, cut down on the dose of beta-lisa and see if we can give him some more Lasix IV to diurese him. Continue other regimen. We will continue to follow. Case was discussed with Dr. Yasmani MARTINEZ/[place] Voice ID: [id number] Report ID: [id number]
[2022-04-02] MEDS: SPIRONOLACTONE 25 MG TABLET PO SCH (16:00)
[2022-04-02] MEDS: TORSEMIDE 20 MG TAB PO SCH (17:27)
[2022-04-02 19:55] LABS: Urine Appearance Clear (Clear); Urine Bilirubin Negative (Negative); Urine Blood Negative (Negative); Urine Color Yellow (Yellow); Urine Glucose Negative (Negative); Urine Protein 1+ (Negative); Urine Specific Gravity 1.015 (1.005-1.030)
[2022-04-02] MEDS: SACUBITRIL/VALSARTAN 24/26 MG TAB PO SCH (20:14)
[2022-04-02] MEDS: carvediloL 3.125 MG TAB PO SCH (20:15)
[2022-04-02 20:16] LABS: Urine Microscopic Reflex ORDER UMIC
[2022-04-02] MEDS: CODEINE 30MG/APAP 300MG TAB PO PRN (20:16)
[2022-04-02] MEDS: ATORVASTATIN 80 MG TAB PO SCH (20:16)
[2022-04-02 20:39] LABS: UR MICROALBUMIN 6.8 mg/dL (< 1.9)
[2022-04-02 21:03] LABS: Urine Amorphous Sediment TRACE /HPF (NONE SEEN); Urine Bacteria <20 /HPF (NONE SEEN); Urine RBC NONE SEEN /HPF (NONE SEEN)
[2022-04-02 21:53] VITALS: O2SAT 96
[2022-04-03 04:16] LABS: Bilirubin Total 0.5 mg/dL (0.2-1.0); Magnesium 2.2 mg/dL (1.8-2.4); Potassium 4.3 mmol/L (3.5-5.1); Protein, Total 6.9 g/dL (6.4-8.2)
--- NOTE | 2022-04-03 07:27 | P.PN ---
Date of Service: 04/03/22 Subjective: ROS: 10 point ROS as noted above, otherwise negative Physical exam GEN: Alert, oriented HEENT: Normal conjunctiva, sclera anicteric CV: Regular rate and rhythm, 2+ pitting edema b/l lower extremities Pulm: mildly labored on 5L NC, b/l rales ABD: Soft, nontender, nondistended Neuro: Normal speech, normal affect : scrotal edema Problem List Anasarca secondary to acute on chronic systolic congestive heart failure with pacemaker/defibrillator Hypokalemia/hypomagnesemia Diabetes mellitus type 2insulin-dependent History of CAD with previous stent placement Paroxysmal atrial fibrillation hypertension continue diuretics; nephrology consulted for assistance with further adjustments difficulty diuresing with hypotension discussed with cardiology, ok to hold entresto, would like coreg continued sliding scale insulin continue amio for afib, aspirin/plavix; not on full anticoagulation telemetry slow improvement, remains with anasarca code: full Dispo: home, ~1-2 days needs further diuresis; with anasarca, difficulty due to low blood pressure - 90s/50s at times unsafe for discharge home, has failed twice already Time Spent Managing Pts Care (In Minutes): 35
[2022-04-03] MEDS: INSULIN -REGULAR HUMAN 50 UNIT/0.5 ML ML SQ SCH ×2 (07:30→12:29)
[2022-04-03] MEDS: NPH (HUMAN) 100 UNITS/ML INSULIN SQ SCH (08:14)
[2022-04-03] MEDS: ENOXAPARIN 40 MG/0.4 ML SQ SCH (08:14)
[2022-04-03] MEDS: AMIODARONE HCL 200 MG TAB PO SCH (08:15)
[2022-04-03] MEDS: TORSEMIDE 20 MG TAB PO SCH (08:15)
[2022-04-03] MEDS: ASPIRIN EC 81 MG TAB PO SCH (08:15)
[2022-04-03] MEDS: SPIRONOLACTONE 25 MG TABLET PO SCH (08:16)
[2022-04-03] MEDS: CLOPIDOGREL 75 MG TABLET PO SCH (08:16)
[2022-04-03] MEDS: SACUBITRIL/VALSARTAN 24/26 MG TAB PO SCH (08:16)
[2022-04-03] MEDS: carvediloL 3.125 MG TAB PO SCH (08:16)
[2022-04-03] MEDS: CODEINE 30MG/APAP 300MG TAB PO PRN (08:22)
[2022-04-03] MEDS ORDERED: METOLAZONE 5 MG TABLET PO SCH ×2 (09:00→13:00)
[2022-04-03 09:21] VITALS: TEMP 97.6
--- NOTE | 2022-04-03 12:18 | P.PN ---
Subjective Date of Service: 04/03/22 Primary Care Provider: Darcy Chief Complaint: CHF exacerbation Pt seen sitting at the side of the bed, hemodynamically stable, discharge plan and meds discussed Physical Examination - Vital Signs Temperature: 97.6 F Blood Pressure: 116/51 Pulse: 60 Respirations: 19 Pulse Ox (%): 94 - Physical Exam General: Alert, In no apparent distress HEENT: Atraumatic Neck: Supple Respiratory: Normal air movement, Crackles/rales Cardiovascular: Regular rate/rhythm, Normal S1 S2, Edema Gastrointestinal: No tenderness, No rebound, No guarding Integumentary: No rashes Assessment And Plan - Plan 1. Volume overload 2. Acute on chronic systolic CHF 3. Peripheral edema 4. Chronic pulmonary edema 5. Ischemic cardiomyopathy 6. Prior LEELA 7. Hypokalemia 1. Pt's renal function tests at this fortunately appear to be stable but with adjustment in meds will need to monitor closely. Agree with continuing Entresto as study show it does help reduce risk of re-hospitalization but his BP will likely preclude dose titration at this point. 2. Did switch maintenance PO loop diuretic to Torsemide as studies have shown may be more effective in CHF, TORIC study suggested a lower mortality rate. Did place on 40 mg PO qd and titrate as needed. To counter hypokalemia and given indication in systolic CHF, did place on an aldosterone antagonist. 3. Will cont Metolazone for sequential nephron blockade but given its potent effects will have to monitor for any pre renal signs in the following weeks and monitor lytes closely. Will add PO KCL 4. His BP has been marginal at times, so did lower Coreg dose to 3.125 mg BID and placed holding parameters on Entresto, Coreg and Spironolactone to hold if SBP < 100. Thus far BP acceptable. Will have pt f/u in clinic. Bandar Dacosta MD, [facility]
[2022-04-03 12:29] VITALS: BP 110/61
--- NOTE | 2022-04-03 21:53 | P.DS ---
Admission Date: 03/30/22 Discharge Date: 04/03/22 Primary Care Provider: Darcy Disposition: ROUTINE DISCHARGE Discharge Condition: GOOD Reason for Admission: CHF exacerbation Consultations: Cardiology - Dr. Aaron Nephrology - Dr. De Santiago Brief History of Present Illness: 71yo M, PMH: systolic CHF (last known EF: 43%), IDDM2, HTN, CAD, s/p pacemaker/defibrillator Presents to ED for UGALDE, worsening lower extremity edema. He was discharged in the hospital a few days ago and he was evaluated by his weigh machine operator today who sent him back to the hospital for further diuresis. He is on oxygen at home5 L. His chest x-ray demonstrated pulmonary edema. Labs were significant for elevated BNP, hypokalemia, hypomagnesemia. Hospital Course: Problem List Anasarca secondary to acute on chronic systolic congestive heart failure with pacemaker/defibrillator Hypokalemia/hypomagnesemia Diabetes mellitus type 2insulin-dependent History of CAD with previous stent placement Paroxysmal atrial fibrillation Hypertension Patient was treated for acute on chronic congestive heart failure exacerbation with IV diuretics. Hospitalization was complicated secondary to low blood pressure interfering with ability to give more diuretics. Cardiology and Nephrology were consulted. Medications were changed, and patient continued to do well. On day of discharge, he was breathing more comfortably on 4-5L NC which is usual for him, and swelling improved. He continues with lower extremity swelling, with right > left, which will continue to improve at home. He was deemed stable for discharge home and he expressed understanding of the changes and plan going forward. Follow up with PCP within 1 week. Follow up with Cardiology in a few weeks Follow up with Nephrology in 1-2 weeks. Lasix changed to torsemide bisoprolol changed to carvedilol added spironolactone added potassium supplementation continue entresto Monitor blood pressure daily, if systolic blood pressure < 100 or heart rate <60, to hold carvedilol and talk with his doctor. Vital Signs/Physical Exam: Temp Pulse Resp BP Pulse Ox 97.6 F 60 19 110/61 94 04/03/22 12:20 04/03/22 12:28 04/03/22 12:20 04/03/22 12:28 04/03/22 12:20 Physical exam GEN: Alert, oriented HEENT: Normal conjunctiva, sclera anicteric CV: Regular rate and rhythm, 1-2+ edema RLE, 1+ LLE edema Pulm: nonlabored respirations on 4L NC ABD: Soft, nontender, nondistended Neuro: Normal speech, normal affect Laboratory Data at Discharge: WBC 5.0 K/uL (4.3-10.9) D 04/02/22 04:17 Hgb 11.9 g/dL (13.6-17.9) L 04/02/22 04:17 Hct 37.8 % (39.6-49.0) L 04/02/22 04:17 Plt Count 168 K/uL (152-406) 04/02/22 04:17 PT 14.9 SECONDS (9.5-12.5) H 03/30/22 13:20 INR 1.35 03/30/22 13:20 Sodium 137 mmol/L (136-145) 04/03/22 03:01 Potassium 4.1 mmol/L (3.5-5.1) 04/03/22 13:50 BUN 9 mg/dL (7-18) 04/03/22 03:01 Creatinine 0.96 mg/dL (0.55-1.3) 04/03/22 03:01 Glucose 157 mg/dL (74-106) H 04/03/22 03:01 Uric Acid 4.9 mg/dL (3.5-7.2) 04/02/22 04:17 Phosphorus 2.8 mg/dL (2.5-4.9) 04/02/22 04:17 Magnesium 2.2 mg/dL (1.8-2.4) 04/03/22 03:01 Total Bilirubin 0.5 mg/dL (0.2-1.0) 04/03/22 03:01 AST 23 U/L (15-37) 04/03/22 03:01 ALT 26 U/L (12-78) 04/03/22 03:01 Alkaline Phosphatase 159 U/L (45-117) H 04/03/22 03:01 Home Medications: Amiodarone HCl [Cordarone*] 200 mg PO BID #60 tab 03/27/22 Aspirin [Aspirin EC 81 MG] 81 mg PO DAILY #30 tablet 03/27/22 Atorvastatin Calcium [Lipitor] 80 mg PO DAILY #30 tab 03/27/22 Clopidogrel Bisulfate [Plavix*] 75 mg PO DAILY #30 tablet 03/27/22 Fluticasone [Flonase 50MCG Nasal [place]*] 1 sprays YUE DAILY PRN #1 btl 03/27/22 Insulin NPH Human [Novolin N (Humulin N)*] 10 units SQ BIDWM #10 ml 03/27/22 Metformin ER [Glucophage ER*] 500 mg PO BID #60 tab.sa 03/27/22 Sacubitril/Valsartan [Entresto 24 mg-26 mg Tablet] 1 tab PO BID #60 tab 03/27/22 Potassium Oral Tab [Klor-Con 10 mEq Tab*] 2 tab PO DAILY 30 Days #30 tab 04/03/22 Spironolactone [Aldactone*] 25 mg PO DAILY 30 Days #30 tab 04/03/22 Torsemide [Soaanz] 40 mg PO DAILY 30 Days #30 tablet 04/03/22 carvediloL [Coreg*] 3.125 mg PO BID 30 Days #60 tab 04/03/22 New Medications: Spironolactone [Aldactone*] 25 mg PO DAILY 30 Days #30 tab carvediloL [Coreg*] 3.125 mg PO BID 30 Days #60 tab Potassium Oral Tab [Klor-Con 10 mEq Tab*] 2 tab PO DAILY 30 Days #30 tab Torsemide [Soaanz] 40 mg PO DAILY 30 Days #30 tablet Followup: Jamey Melendez MD [ACTIVE - CAN ADMIT] - 1 Week (Call for appointment.) Buck De Santiago DO [ACTIVE - CAN ADMIT] - 1 Week (call for appointment.) Alon Aaron MD [ACTIVE - CAN ADMIT] - 1 Week (Call for appointment.) NONE,NONE [Primary Care Provider] - 1 Week (call for appointment.) Time spent managing pt's care (in minutes): 45
[2022-04-04] MEDS ORDERED: POTASSIUM CL SA 10 MEQ TAB PO SCH (09:00)
--- NOTE | 2022-04-04 21:40 | PN ---
Date of Progress Note: 04/03/2022 Subjective: Seen by bedside. He is doing significantly better. His lower extremity edema is signif icantly better. Review of Systems: Still has mild orthopnea and mild lower extremity edema. No resting shortness of breath or chest nereida n. No nausea, vomiting, diarrhea. No abdominal pain. All other systems reviewed are negative. Physical Examination: Vital Signs: Reviewed. Head and Neck: Pupils are equal and reactive to light. Intact eye movements. No JVD. No cervical adenopathy. Neck: Supple. Thyroid is not enlarged. Lungs: Clear to auscultation bilaterally. No rhonchi, rales, or crackles. No accessory muscle use. Heart: Regular rate and rhythm. No extra sounds. Abdomen: Soft, nontender. Bowel sounds positive. No organomegaly. No tenderness to palpation. Extremities: 1+ edema bilaterally. No clubbing, cyanosis. Intact pulses. Skin: No rashes. Neurologic: Alert, awake, oriented x3. No acute focal deficits appreciated. Investigations: Labs were reviewed. Assessment And Recommendation: 1.Acute on chronic systolic congestive heart failure exacerbation, doing significantly better. He i s on oral torsemide now and spironolactone. Continue current medications and patient probably can be released with very strict instructions on low-salt diet and close monitoring as an outpatient with d aily body weight and adjusting diuretics accordingly. 2.Coronary artery disease, status post percutaneous coronary intervention of the left circumflex and the LAD and doing very well. No chest pain. Continue with the dual anti-platelet therapy with aspirin, Plavix, beta lisa. 3.Dyslipidemia. Continue statin. SR/MODL Voice ID: [id number] Report ID: [id number]
== END 2022-04-03 14:28 | disposition home or self-care (01) | DRG 291 ==
LOC: ER 12:01 → ERHOLD 19:16 → 4TH 21:55
PROVIDERS: ADMIT Hospitalist; ATTEND Hospitalist
DX: I11.0 Hypertensive heart disease with heart failure (principal); I50.23 Acute on chronic systolic (congestive) heart failure; E87.6 Hypokalemia; E83.42 Hypomagnesemia; E11.9 Type 2 diabetes mellitus without complications; I25.10 Atherosclerotic heart disease of native coronary artery without angina pectoris; I25.5 Ischemic cardiomyopathy; I48.0 Paroxysmal atrial fibrillation; E88.09 Other disorders of plasma-protein metabolism, not elsewhere classified; Z95.810 Presence of automatic (implantable) cardiac defibrillator; Z95.5 Presence of coronary angioplasty implant and graft; Z79.4 Long term (current) use of insulin; Z87.891 Personal history of nicotine dependence; Z20.822 Contact with and (suspected) exposure to COVID-19
CPT/HCPCS: 36415; 71045; 80048; 80053; 80076; 81003; 81015; 82043; 82533; 82570; 82947; 83735; 83880; 84100; 84132; 84443; 84484; 84550; 85025; 85610; 93005; 93970; 96374; 99285; J1650; J1815; J1940; J3475; U0003

== ENCOUNTER 2022-04-08 18:42 | Observation (INO) | payer OTHER ==
--- NOTE | 2022-04-08 21:02 | RAD REPORT ---
EXAM DESCRIPTION: Javier Single View04/08/2022 8:32 pm CLINICAL HISTORY: Chest pain COMPARISON: April 02, 2002 FINDINGS: The lungs appear clear of acute infiltrate. The heart is moderately enlarged. Pacemaker l mirna are in place. IMPRESSION: No acute abnormalities displayed
[2022-04-08] MEDS ORDERED: FUROSEMIDE 40 MG/4 ML VIAL ONE (21:33)
[2022-04-08 22:30] LABS: Absolute Lymphocytes (CBC) 1.3 K/uL (0.7-4.9); Hematocrit 42.5 % (39.6-49.0); MPV 9.4 fL (7.6-11.3)
[2022-04-08 22:48] LABS: Albumin 3.3 g/dL (3.4-5.0); Bilirubin Direct 0.2 mg/dL (0-0.2); Bilirubin Total 0.5 mg/dL (0.2-1.0); Magnesium 2.1 mg/dL (1.8-2.4); Potassium 3.1 mmol/L (3.5-5.1); Protein, Total 7.5 g/dL (6.4-8.2); Troponin High Sensitivity 33.8 pg/mL (<58.9)
[2022-04-08 22:51] LABS: Protime INR 1.2
--- NOTE | 2022-04-08 23:03 | ER ---
Nurse's Notes [facility] Name: Willi Boudreaux Age: 71 yrs Sex: Male : 1950 Arrival Date: 04/08/2022 Time: 18:49 Bed 25 Private MD: Diagnosis: Chest pain, unspecified;Acute on chronic combined systolic (congestive) and diastolic (congestive) heart failure Presentation: 04/08 19:16 Chief complaint: Patient states: Pt reports chest pain X 2 hours ago. Denies chest pain ld1 at this time. C/O swelling in feet and legs. Coronavirus screen: At this time, the client does not indicate any symptoms associated with coronavirus-19. Ebola Screen: No symptoms or risks identified at this time. Initial Sepsis Screen: Does the patient meet any 2 criteria? No. Patient's initial sepsis screen is negative. Does the patient have a suspected source of infection? No. Patient's initial sepsis screen is negative. Risk Assessment: Do you want to hurt yourself or someone else? Patient reports no desire to harm self or others. Onset of symptoms was April 08, 2022. 19:16 Method Of Arrival: Wheelchair ld1 19:16 Acuity: DAI 3 ld1 Triage Assessment: 19:18 General: Appears in no apparent distress. comfortable, Behavior is calm, cooperative, ld1 appropriate for age. Pain: Complains of pain in chest Pain does not radiate. Pain currently is 0 out of 10 on a pain scale. at worst was 5 out of 10 on a pain scale. EENT: No signs and/or symptoms were reported regarding the EENT system. Neuro: Level of Consciousness is awake, alert, obeys commands, Oriented to person, place, time, situation. Cardiovascular: Capillary refill < 3 seconds Patient's skin is warm and dry. Respiratory: Reports shortness of breath Airway is patent Respiratory effort is even, labored, Onset: The symptoms/episode began/occurred suddenly, the patient has moderate shortness of breath. GI: Abdomen is round non-distended. : No signs and/or symptoms were reported regarding the genitourinary system. Derm: No signs and/or symptoms reported regarding the dermatologic system. Musculoskeletal: No signs and/or symptoms reported regarding the musculoskeletal system. Historical: - Allergies: 19:18 No Known Allergies; ld1 - PMHx: 19:18 COPD; Hypertensive disorder; Myocardial infarction; home O2 via NC at 5L; diabetes ld1 mellitus; asbestosis; CHF; - PSHx: 19:18 lumbar laminectomy, cervicle spine fusion; pacemaker; ld1 - Immunization history:: Adult Immunizations up to date, Client reports receiving the 2nd dose of the Covid vaccine. - Social history:: Smoking status: Patient denies any tobacco usage or history of. Patient/guardian denies using alcohol. Screenin:13 Abuse screen: Denies threats or abuse. Nutritional screening: No deficits noted. ll3 Tuberculosis screening: No symptoms or risk factors identified. Fall Risk No fall in past 12 months (0 pts). No secondary diagnosis (0 pts). IV access (20 points). Ambulatory Aid- Crutches/Cane/Walker (15 pts). Gait- Normal/Bed Rest/Wheelchair (0 pts) Mental Status- Oriented to own ability (0 pts). Total Chambers Fall Scale indicates Low Risk Score (25-44 pts). Fall prevention measures have been instituted. Side Rails Up X 2 Placed close to Nursing Station As available Patient and Family Educated on Fall Prevention Program and strategies. Assessment: 21:00 General: Appears uncomfortable, Behavior is calm, cooperative. Pain: Complains of pain ll3 in chest Pain currently is 5 out of 10 on a pain scale. Pain began 1 day ago. Is continuous. Neuro: Level of Consciousness is awake, alert, obeys commands, Oriented to person, place, time, situation. Cardiovascular: Patient's skin is warm and dry. Rhythm is Chest pain is described as mild, quality is heaviness, is located in anterior chest wall began 1 day ago episodes are continuous. Respiratory: Reports shortness of breath cough that is Respiratory effort is even, unlabored, Respiratory pattern is regular, symmetrical, Derm: Skin is pink, warm \T\ dry. Reports Bilateral lower leg swelling. 22:00 Reassessment: No changes from previously documented assessment. Patient and/or family ll3 updated on plan of care and expected duration. Pain level reassessed. Patient is alert, oriented x 3, equal unlabored respirations, skin warm/dry/pink. 23:00 Reassessment: No changes from previously documented assessment. Patient and/or family ll3 updated on plan of care and expected duration. Pain level reassessed. Patient is alert, oriented x 3, equal unlabored respirations, skin warm/dry/pink. 04/09 00:14 Reassessment: No changes from previously documented assessment. Patient and/or family ll3 updated on plan of care and expected duration. Pain level reassessed. Patient is alert, oriented x 3, equal unlabored respirations, skin warm/dry/pink. 01:06 Reassessment: No changes from previously documented assessment. Patient and/or family ll3 updated on plan of care and expected duration. Pain level reassessed. Patient is alert, oriented x 3, equal unlabored respirations, skin warm/dry/pink. Vital Signs: 04/08 19:16 BP 98 / 52; Pulse 62; Resp 22; Temp 97.5(TE); Pulse Ox 91% on 5 lpm NC; Weight 106.59 ld1 kg; Height 5 ft. 10 in. (177.80 cm); Pain 0/10; 21:00 BP 122 / 64; Pulse 60; Resp 20; Pulse Ox 100% on 4 lpm NC; ll3 22:00 BP 122 / 73; Pulse 60; Resp 20; Pulse Ox 100% on 4 lpm NC; ll3 04/09 00:14 BP 130 / 77; Pulse 61; Resp 17; Pulse Ox 97% on 4 lpm NC; ll3 01:10 BP 121 / 80; Pulse 72; Resp 18; Pulse Ox 97% on 4 lpm NC; ll3 04/08 19:16 Body Mass Index 33.72 (106.59 kg, 177.80 cm) ld1 ED Course: 04/08 18:49 Patient arrived in ED. ja2 19:18 Triage completed. ld1 19:18 Arm band placed on right wrist. ld1 20:00 Kera Henry FNP-C is PHCP. kb 20:00 Ignacio Crawley MD is Attending Physician. kb 20:34 XRAY Chest (1 view) In Process Unspecified. EDMS 22:10 Jessica Werner, DONALD is Primary Nurse. ll3 22:13 Patient has correct armband on for positive identification. Bed in low position. Call ll3 light in reach. Side rails up X 1. Client placed on continuous cardiac and pulse oximetry monitoring. NIBP monitoring applied. 22:13 Inserted saline lock: 24 gauge in left wrist, using aseptic technique. ll3 23:02 Dakota Mercado is Hospitalizing Provider. kb 04/09 00:14 No provider procedures requiring assistance completed. ll3 01:09 Patient admitted, IV remains in place. ll3 Administered Medications: 04/08 22:08 Drug: Lasix (furosemide) 40 mg Route: IVP; Site: left wrist; ll3 04/09 01:11 Follow up: Response: No adverse reaction ll3 Medication: 00:14 VIS not applicable for this client. ll3 Outcome: 04/08 23:03 Decision to Hospitalize by Provider. kb 04/09 01:09 Admitted to Tele accompanied by nurse, via stretcher, room 404, with oxygen, with ll3 chart, Report called to DONALD Herman Condition: stable Discharge instructions given to patient, Instructed on the need for admit, Demonstrated understanding of instructions. : Patient left the ED. ld1 Signatures: Dispatcher [employer] EDMS Kera Henry, CATHERINE-C QLIKVIEW DEVELOPER-Carolin Villeda, RN RN ld1 Sera Antonio Lynsea, DONALD RN ll3
--- NOTE | 2022-04-08 23:03 | EDPHYS ---
Physician Documentation [facility] Name: Willi Boudreaux Age: 71 yrs Sex: Male : 1950 Arrival Date: 04/08/2022 Time: 18:49 Bed 25 Private MD: ED Physician Ignacio Crawley HPI: 04/08 23:53 This 71 yrs old Black Male presents to ER via Wheelchair with complaints of Feet kb Swelling, Ankle Swelling, Leg Swelling, Breathing Difficulty. 23:53 The patient or guardian reports chest pain that is located primarily in the anterior kb chest wall, left. 23:54 Onset: 2 hour(s) ago. The pain does not radiate. Associated signs and symptoms: kb Pertinent positives: lower extremity swelling. The chest pain is described as a heaviness. Duration: The patient or guardian reports a single episode, that is still ongoing, but improving. Modifying factors: The symptoms are alleviated by nothing. the symptoms are aggravated by nothing. Severity of pain: At its worst the pain was moderate in the emergency department the pain has improved moderately. The patient has experienced similar episodes in the past. The patient has been recently been admitted at [facility], was discharged last week. Pt reports lower extremity swelling that started 3 weeks ago. States he was admitted and was given lasix that made the swelling go down quite a bit, but when he was discharged they switched him to something else and it doesn't work. States he came in tonight because he is also having chest pain. Reports chest pain started 2 hours beveler and is getting better now. Historical: - Allergies: 19:18 No Known Allergies; ld1 - PMHx: 19:18 COPD; Hypertensive disorder; Myocardial infarction; home O2 via NC at 5L; diabetes ld1 mellitus; asbestosis; CHF; - PSHx: 19:18 lumbar laminectomy, cervicle spine fusion; pacemaker; ld1 - Immunization history:: Adult Immunizations up to date, Client reports receiving the 2nd dose of the Covid vaccine. - Social history:: Smoking status: Patient denies any tobacco usage or history of. Patient/guardian denies using alcohol. ROS: 23:49 Constitutional: Negative for fever, chills, and weight loss. kb 23:49 Cardiovascular: Positive for chest pain, edema, Negative for orthopnea, palpitations, paroxysmal nocturnal dyspnea. 23:49 MS/extremity: Positive for swelling, of the right leg and left leg. 23:49 All other systems are negative. Exam: 23:49 Constitutional: This is a well developed, well nourished patient who is awake, alert, kb and in no acute distress. Head/Face: Normocephalic, atraumatic. ENT: Moist Mucous membranes Cardiovascular: Regular rate and rhythm with a normal S1 and S2. No gallops, murmurs, or rubs. No pulse deficits. Respiratory: Respirations even and unlabored. No increased work of breathing. Talking in full sentences Abdomen/GI: Soft, non-tender. No distention Skin: Warm, dry with normal turgor. Normal color. Neuro: Awake and alert, GCS 15, oriented to person, place, time, and situation. Moves all extremities. Normal gait. Psych: Awake, alert, with orientation to person, place and time. Behavior, mood, and affect are within normal limits. 23:49 Cardiovascular: Edema: 3+ edema to level of bilateral lower extremities. 23:49 Musculoskeletal/extremity: Extremities: grossly normal except: noted in the right leg and left leg: swelling. Vital Signs: 19:16 BP 98 / 52; Pulse 62; Resp 22; Temp 97.5(TE); Pulse Ox 91% on 5 lpm NC; Weight 106.59 ld1 kg; Height 5 ft. 10 in. (177.80 cm); Pain 0/10; 21:00 BP 122 / 64; Pulse 60; Resp 20; Pulse Ox 100% on 4 lpm NC; ll3 22:00 BP 122 / 73; Pulse 60; Resp 20; Pulse Ox 100% on 4 lpm NC; ll3 04/09 00:14 BP 130 / 77; Pulse 61; Resp 17; Pulse Ox 97% on 4 lpm NC; ll3 01:10 BP 121 / 80; Pulse 72; Resp 18; Pulse Ox 97% on 4 lpm NC; ll3 04/08 19:16 Body Mass Index 33.72 (106.59 kg, 177.80 cm) ld1 MDM: 04/08 20:49 Patient medically screened. kb 23:01 Data reviewed: vital signs, nurses notes. Data interpreted: Pulse oximetry: on room air kb is 100 %. Interpretation: normal. Counseling: I had a detailed discussion with the patient and/or guardian regarding: the historical points, exam findings, and any diagnostic results supporting the discharge/admit diagnosis, lab results, radiology results, the need for further work-up and treatment in the hospital. Physician consultation: Pattie BRANDT was contacted at 23:02, regarding admission, to the telemetry unit. patient's condition, and will see patient in ED. 04/08 20:01 Order name: Basic Metabolic Panel; Complete Time: 23:00 kb 04/08 20:01 Order name: CBC with Diff; Complete Time: 00:59 kb 04/08 20:01 Order name: LFT's; Complete Time: 23:00 kb 04/08 20:01 Order name: Magnesium; Complete Time: 23:00 kb 04/08 20:01 Order name: NT PRO-BNP; Complete Time: 23:00 kb 04/08 20:01 Order name: PT-INR; Complete Time: 23:00 kb 04/08 20:01 Order name: Troponin HS; Complete Time: 23:00 kb 04/08 20:01 Order name: XRAY Chest (1 view); Complete Time: 21:05 kb 04/08 20:01 Order name: EKG; Complete Time: 20:02 kb 04/08 20:01 Order name: Cardiac monitoring; Complete Time: 21:34 kb 04/08 20:01 Order name: EKG - Nurse/Tech; Complete Time: 21:34 kb 04/08 21:17 Order name: COVID-19 SARS RT PCR (Document "Date of Onset" if Symptomatic); Complete kb Time: 23:00 04/08 22:34 Order name: CBC Smear Scan; Complete Time: 00:59 EDMS 04/08 20:01 Order name: IV Saline Lock; Complete Time: 22:08 kb 04/08 20:01 Order name: Labs collected and sent; Complete Time: 22:14 kb 04/08 20:01 Order name: O2 Per Protocol; Complete Time: 21:34 kb 04/08 20:01 Order name: O2 Sat Monitoring; Complete Time: 21:34 kb Administered Medications: 22:08 Drug: Lasix (furosemide) 40 mg Route: IVP; Site: left wrist; ll3 04/09 01:11 Follow up: Response: No adverse reaction ll3 Disposition Summary: 04/08/22 23:03 Hospitalization Ordered Hospitalization Status: Observation kb Provider: Dakota Mercado Location: Telemetry/MedSurg (observation) kb Condition: Stable kb Problem: an acute exacerbation kb Symptoms: are unchanged kb Bed/Room Type: Standard Room Assignment: 404(04/09/22 00:33) eb1 Diagnosis - Chest pain, unspecified kb - Acute on chronic combined systolic (congestive) and diastolic (congestive) heart kb failure Forms: - Medication Reconciliation Form kb - SBAR form kb Addendum: 04/10/2022 07:20 Co-signature as Attending Physician, Ignacio Crawley MD I agree with the assessment and k dr plan of care. Signatures: Dispatcher [employer] EDMS Kera Henry, HOMICIDE SQUAD SERGEANT-C HOMICIDE SQUAD SERGEANT-Ignacio Sandra MD MD kdr Basinger, Emily RN RN eb1 Carolin Baptiste RN RN ld1 Jessica Werner RN RN ll3 Corrections: (The following items were deleted from the chart) 04/09 00:33 04/08 23:03 kb eb1
--- NOTE | 2022-04-09 00:36 | P.HP ---
Certification for Inpatient Patient admitted to: Observation With expected LOS: <2 Midnights Patient will require the following post-hospital care: None Practitioner: I am a practitioner with admitting privileges, knowledge of patient current condition, hospital course, and medical plan of care. Services: Services provided to patient in accordance with Admission requirements found in Title 42 Section 412.3 of the Code of Federal Regulations Patient History Date of Service: 04/09/22 Reason for admission: CHF Exacerbation History of Present Illness: Patient is a 71-year-old male with history of systolic CHF (last known EF 43%), IDDM, hypertension, CAD, pacemaker defibrillator who presented to the ED for chest pain and worsening lower extremity edema. He was discharged from this facility 5 days ago after undergoing treatment for CHF exacerbation with IV diuretics. Hospitalization was complicated secondary to low blood pressure interfering with ability to give more diuretics. Cardiology and Nephrology were consulted, medications were adjusted, and patient improved. His furosemide was discontinued and he was prescribed spironolactone and torsemide on discharge. Patient reports that the new medications have not been helping his lower extremity swelling. His chest x-ray today was unremarkable and his labs were significant for elevated BNP and hypokalemia. He was given 40 mg IV lasix in ED with minimal improvement in edema. Will admit for further evaluation and management of CHF exacerbation. Allergies No Known Allergies Allergy (Verified 03/07/22 00:07) Home medications list reviewed: Yes Home Medications: Amiodarone HCl [Cordarone*] 200 mg PO BID #60 tab 03/27/22 Aspirin [Aspirin EC 81 MG] 81 mg PO DAILY #30 tablet. 03/27/22 Atorvastatin Calcium [Lipitor] 80 mg PO DAILY #30 tab 03/27/22 Clopidogrel Bisulfate [Plavix*] 75 mg PO DAILY #30 tablet 03/27/22 Fluticasone [Flonase 50MCG Nasal [place]*] 1 sprays YUE DAILY PRN #1 btl 03/27/22 Insulin NPH Human [Novolin N (Humulin N)*] 10 units SQ BIDWM #10 ml 03/27/22 Metformin ER [Glucophage ER*] 500 mg PO BID #60 tab.sa 03/27/22 Sacubitril/Valsartan [Entresto 24 mg-26 mg Tablet] 1 tab PO BID #60 tab 06/17/22 Potassium Oral Tab [Klor-Con 10 mEq Tab*] 2 tab PO DAILY 30 Days #30 tab Spironolactone [Aldactone*] 25 mg PO DAILY 30 Days #30 tab 04/03/22 Torsemide [Soaanz] 40 mg PO DAILY 30 Days #30 tablet 04/03/22 carvediloL [Coreg*] 3.125 mg PO BID 30 Days #60 tab 04/03/22 - Past Medical/Surgical History Diabetic: Yes -: HTN -: HLD -: DM insulin-dependent -: CAD -: myocardial infarcation -: CHF/systolic -: pacemaker/defibrillator -: cardiac stent x2 -: lumbar laminectomy -: cervical spine surgery Psychosocial/ Personal History: Patient lives at home, alone - Family History Family History: Reviewed- Non-Contributory - Social History Smoking Status: Former smoker Alcohol use: No CD- Drugs: No Caffeine use: Yes Place of Residence: Home Review of Systems Cardiovascular: Chest Pain, Edema Physical Examination - Physical Exam General: Alert, In no apparent distress HEENT: Atraumatic, PERRLA, EOMI, Sclerae nonicteric Neck: Supple, 2+ carotid pulse no bruit, No LAD, Without JVD or thyroid abnormality Respiratory: Crackles/rales Cardiovascular: Regular rate/rhythm, Normal S1 S2, Edema (3+ pitting edema BLE up to thighs ) Gastrointestinal: Normal bowel sounds, No tenderness Musculoskeletal: No tenderness Integumentary: No rashes Neurological: Normal speech, Normal strength at 5/5 x4 extr, Normal tone, Normal affect - Studies Laboratory Data (last 24 hrs) 04/08/22 22:18: PT 13.3 H, INR 1.20 04/08/22 22:18: WBC 8.0 D, Hgb 13.5 L, Hct 42.5, Plt Count 167 04/08/22 22:18: Sodium 139, Potassium 3.1 L, BUN 21 H, Creatinine 1.79 H, Glucose 139 H, Magnesium 2.1, Total Bilirubin 0.5, AST 14 L, ALT 16, Alkaline Phosphatase 150 H Assessment and Plan - Problems (Diagnosis) (1) Acute on chronic systolic heart failure Current Visit: Yes Status: Acute (2) Anasarca Current Visit: Yes Status: Acute (3) LEELA (acute kidney injury) Current Visit: Yes Status: Acute (4) Chest pain Current Visit: Yes Status: Acute Qualifiers: Chest pain type: unspecified Qualified Code(s): R07.9 - Chest pain, unspecified (5) CAD (coronary artery disease) Current Visit: Yes Status: Chronic Qualifiers: Coronary Disease-Associated Artery/Lesion type: unspecified vessel or lesion type [place] vs. transplanted heart: [place] heart Associated angina: with stable angina Qualified Code(s): I25.118 - Atherosclerotic heart disease of [place] coronary artery with other forms of angina pectoris (6) HLD (hyperlipidemia) Current Visit: Yes Status: Chronic Qualifiers: Hyperlipidemia type: unspecified Qualified Code(s): E78.5 - Hyperlipidemia, unspecified (7) HTN (hypertension) Current Visit: Yes Status: Chronic Qualifiers: Hypertension type: primary hypertension Qualified Code(s): I10 - Essential (primary) hypertension (8) T2DM (type 2 diabetes mellitus) Current Visit: Yes Status: Chronic Qualifiers: Diabetes mellitus custodial insulin use: with custodial use Diabetes mellitus complication status: with kidney complications Diabetes mellitus complication detail: with chronic kidney disease Chronic kidney disease stage 3 subtype: stage 3b (GFR 30-44) - Plan -Cardiology consult -Monitor on telemetry -IV lasix 40 mg BID. Last admission patient had issues with hypotension secondary to diuresis. Will monitor closely. -1500 cc/day fluid restriction. Monitor intake and output -ACHS accu checks with mild sliding scale insulin and diabetic diet -Reconcile and continue home medications -Lovenox for VTE ppx -Full code Discharge Plan: Home Plan to discharge in: 24 Hours - Advance Directives Does patient have a Living Will: No Does patient have a Durable POA for Healthcare: Yes - Code Status/Comfort Care Code Status Assessed: Yes (Full) Critical Care: No Time Spent Managing Pts Care (In Minutes): 50
[2022-04-09 00:40] LABS: Anisocytosis 3+; Blood Morphology Comment NOTED (NOT SEEN); Platelet Estimate ADEQ; White Blood Cell Scan OK (OK)
[2022-04-09] MEDS ORDERED: ONDANSETRON 4 MG/2 ML VIAL IV PRN (01:10)
[2022-04-09] MEDS ORDERED: ACETAMINOPHEN 500 MG TAB PO PRN (01:10)
[2022-04-09 03:45] VITALS: BMI 33.7
[2022-04-09 04:23] VITALS: O2SAT 97
[2022-04-09] MEDS: INSULIN -REGULAR HUMAN 50 UNIT/0.5 ML ML SQ SCH ×2 (07:30→11:30)
[2022-04-09 08:44] VITALS: BP 106/53; TEMP 98.5
[2022-04-09] MEDS ORDERED: FUROSEMIDE 40 MG/4 ML VIAL IV SCH (09:00)
[2022-04-09] MEDS ORDERED: POTASSIUM CL SA 10 MEQ TAB PO ONE (09:00)
[2022-04-09] MEDS ORDERED: ENOXAPARIN 40 MG/0.4 ML SQ SCH (09:00)
--- NOTE | 2022-04-09 11:06 | P.DS ---
Admission Date: 04/09/22 Discharge Date: 04/09/22 Disposition: DC HOME/HOME HEALTH CARE Discharge Condition: GOOD Reason for Admission: CHF Exacerbation - Problems (1) Chronic systolic heart failure Status: Acute (2) Bilateral lower extremity edema Status: Acute (3) CAD (coronary artery disease) Status: Chronic Qualifiers: Coronary Disease-Associated Artery/Lesion type: unspecified vessel or lesion type [place] vs. transplanted heart: [place] heart Associated angina: with stable angina Qualified Code(s): I25.118 - Atherosclerotic heart disease of [place] coronary artery with other forms of angina pectoris Brief History of Present Illness: Patient is a 71-year-old male with history of systolic CHF (last known EF 43%), IDDM, hypertension, CAD, pacemaker defibrillator who presented to the ED for chest pain and worsening lower extremity edema. He was discharged from this facility 5 days ago after undergoing treatment for CHF exacerbation with IV diuretics. Hospitalization was complicated secondary to low blood pressure interfering with ability to give more diuretics. Cardiology and Nephrology were consulted, medications were adjusted, and patient improved. His furosemide was discontinued and he was prescribed spironolactone and torsemide on discharge. Patient reports that the new medications have not been helping his lower extremity swelling. His chest x-ray today was unremarkable and his labs were significant for elevated BNP and hypokalemia. He was given 40 mg IV lasix in ED with minimal improvement in edema. Patient hospitalized for further management. Hospital Course: Patient placed in observation on the medical floor. His lower extremity edema improved with IV Lasix. Patient was stable on 3 L of oxygen by nasal cannula which is his baseline. He had no other complaints. He tolerated diet and clinically stable. I was informed by social service team patient declined home health after discharge from previous hospitalization. He has been informed he needs a PCP to monitor and manage his diuretics and edema. He is discharged with torsemide 40 mg twice a day. Dr. Masters recommended increasing patient's Entresto but his blood pressure was borderline hypotensive and may not tolerate increase in the Entresto dose. Home health to monitor his volume status recommended. Patient is clinically stable for discharge. Vital Signs/Physical Exam: Temp Pulse Resp BP Pulse Ox 98.5 F 61 18 106/53 L 100 04/09/22 08:00 04/09/22 08:00 04/09/22 08:00 04/09/22 08:00 04/09/22 08:00 General: Alert, In no apparent distress, Oriented x3 HEENT: Mucous membr. moist/pink Neck: Supple, JVD not distended Respiratory: Clear to auscultation bilaterally, Normal air movement Cardiovascular: Regular rate/rhythm, Normal S1 S2, Edema (1+ bilateral lower extremity pitting edema) Gastrointestinal: Soft and benign, Non-distended, No tenderness Musculoskeletal: Swelling (Bilateral legs) Integumentary: No rashes, No erythema Neurological: Normal strength at 5/5 x4 extr Laboratory Data at Discharge: WBC 8.0 K/uL (4.3-10.9) D 04/08/22 22:18 Hgb 13.5 g/dL (13.6-17.9) L 04/08/22 22:18 Hct 42.5 % (39.6-49.0) 04/08/22 22:18 Plt Count 167 K/uL (152-406) 04/08/22 22:18 PT 13.3 SECONDS (9.5-12.5) H 04/08/22 22:18 INR 1.20 04/08/22 22:18 Sodium 139 mmol/L (136-145) 04/08/22 22:18 Potassium 3.1 mmol/L (3.5-5.1) L 04/08/22 22:18 BUN 21 mg/dL (7-18) H 04/08/22 22:18 Creatinine 1.79 mg/dL (0.55-1.3) H 04/08/22 22:18 Glucose 139 mg/dL (74-106) H 04/08/22 22:18 Magnesium 2.1 mg/dL (1.8-2.4) 04/08/22 22:18 Total Bilirubin 0.5 mg/dL (0.2-1.0) 04/08/22 22:18 AST 14 U/L (15-37) L 04/08/22 22:18 ALT 16 U/L (12-78) 04/08/22 22:18 Alkaline Phosphatase 150 U/L (45-117) H 04/08/22 22:18 Home Medications: Amiodarone HCl [Cordarone*] 200 mg PO BID #60 tab 03/27/22 Aspirin [Aspirin EC 81 MG] 81 mg PO DAILY #30 tablet. 03/27/22 Atorvastatin Calcium [Lipitor] 80 mg PO DAILY #30 tab 03/27/22 Clopidogrel Bisulfate [Plavix*] 75 mg PO DAILY #30 tablet 03/27/22 Fluticasone [Flonase 50MCG Nasal [place]*] 1 sprays YUE DAILY PRN #1 btl 03/27/22 Insulin NPH Human [Novolin N (Humulin N)*] 10 units SQ BIDWM #10 ml 03/27/22 Metformin ER [Glucophage ER*] 500 mg PO BID #60 tab.sa 03/27/22 Potassium Oral Tab [Klor-Con 10 mEq Tab*] 2 tab PO DAILY 30 Days #30 tab 04/03/22 Spironolactone [Aldactone*] 25 mg PO DAILY 30 Days #30 tab 04/03/22 carvediloL [Coreg*] 3.125 mg PO BID 30 Days #60 tab 04/03/22 Torsemide [Soaanz] 40 mg PO BID 30 Days #60 tablet 04/09/22 New Medications: Torsemide [Soaanz] 40 mg PO BID 30 Days #60 tablet Diet: ADA Activity: Ad alec Followup: gabriela arcos [Primary Care Provider] -
--- NOTE | 2022-04-09 14:06 | ECHO ---
HEIGHT: 5 ft 10 in WEIGHT: 235 lb 0 oz DATE OF STUDY: 04/09/[address]: Alon Aaron MD 2-DIMENSIONAL: YES M.MODE: YES DOPPLER: YES COLOR FLOW: YES TDS: NO PORTABLE: YES DEFINITY: NO BUBBLE STUDY: NO DIAGNOSIS: CONGESTIVE HEART FAILURE CARDIAC HISTORY: CATHERIZATION: YES SURGERY: NO PROSTHETIC VALVE: NO PACEMAKER: YES MEASUREMENTS (cm) DIASTOLIC (NORMALS) SYSTOLIC (NORMALS) IVSd 1.2 (0.6-1.2) LA Diam 4.1 (1.9-4.0) LVEF 59% LVIDd 6.0 (3.5-5.7) LVIDs 4.1 (2.0-3.5) %FS 32% LVPWd 1.3 (0.6-1.2) Ao Diam 2.9 (2.0-3.7) 2 DIMENSIONAL ASSESSMENT: RIGHT ATRIUM: NORMAL LEFT ATRIUM: NORMAL RIGHT VENTRICLE: NORMAL LEFT VENTRICLE: NORMAL TRICUSPID VALVE: MILD TRICUSPID REGURGITATION MITRAL VALVE: MILD MITRAL REGURGITATION PULMONIC VALVE: NORMAL AORTIC VALVE: NORMAL PERICARDIAL EFFUSION: NONE AORTIC ROOT: NORMAL LEFT VENTRICULAR WALL MOTION: NORMAL. DOPPLER/COLOR FLOW: SEE BELOW. COMMENTS: NORMAL LEFT VENTRICULAR EJECTION FRACTION 55-60% WITH NORMAL WALL MOTION. MILD MITRAL AND TRICUSPID REGURGITATION. SEVERE PULMONARY HYPERTENSION WITH RIGHT VENTRICULAR SYSTOLIC PRESSURE GREATER THAN 60mmHg. MODERATE DIASTOLIC DYSFUNCTION WITH ELEVATED FILLING PRESSURE. TECHNOLOGIST: CARLOS ENRIQUE PENA
--- NOTE | 2022-04-09 14:47 | CON ---
Date of Consultation: 04/09/2022 Reason For Consultation: Congestive heart failure. History Of Present Illness: Mr. Boudreaux is a 71-year-old black male. This is one of many recurrent admissions for congestive heart failure. He is known to have chronic systolic congestive heart fail ure, last ejection fraction of 43% in October. He has a history of defibrillator and pacemaker. Has a history of CAD. He has a history of COPD, on home oxygen. He has a history of hypertension, diab etes, asbestosis, dyslipidemia. He comes in with CHF, PND, orthopnea, pedal edema, abdominal swellin g. Denied palpitation or syncope or fever or chills. He claims that he is compliant with his medica tions. DICTATION ENDS HERE MICHELLE/[place] Voice ID: [id number] Report ID: [id number]
--- NOTE | 2022-04-10 09:53 | EKG ---
Test Date: 2022-04-08 Test Time: 21:34:23 Shell Worker: LL MEASUREMENT RESULTS: Intervals: Rate: 60 GA: QRSD: 180 QT: 470 QTc: 470 [place]: P: GA: QRS: 183 T: -27 INTERPRETIVE STATEMENTS: Electronic ventricular pacemaker Compared to ECG 03/30/2022 13:18:23 No significant changes Electronically Signed On 04-10-22 09:48:59 CDT by Alon Aaron
== END 2022-04-09 12:35 | disposition home or self-care (01) ==
LOC: ER 18:42 → ERHOLD 04-09 00:37 → 4TH 04-09 00:47
PROVIDERS: ADMIT Internal Medicine; ATTEND Internal Medicine
DX: I13.0 Hypertensive heart and chronic kidney disease with heart failure and stage 1 through stage 4 chronic kidney disease, or unspecified chronic kidney disease (principal); I50.23 Acute on chronic systolic (congestive) heart failure; N18.32 Chronic kidney disease, stage 3b; E11.22 Type 2 diabetes mellitus with diabetic chronic kidney disease; N17.9 Acute kidney failure, unspecified; E87.6 Hypokalemia; E78.5 Hyperlipidemia, unspecified; J44.9 Chronic obstructive pulmonary disease, unspecified; J61 Pneumoconiosis due to asbestos and other mineral fibers; I25.118 Atherosclerotic heart disease of native coronary artery with other forms of angina pectoris; I25.2 Old myocardial infarction; Z95.810 Presence of automatic (implantable) cardiac defibrillator; Z95.5 Presence of coronary angioplasty implant and graft; Z99.81 Dependence on supplemental oxygen; Z79.82 Long term (current) use of aspirin; Z79.84 Long term (current) use of oral hypoglycemic drugs; Z79.02 Long term (current) use of antithrombotics/antiplatelets; Z79.4 Long term (current) use of insulin; Z79.899 Other long term (current) drug therapy; Z87.891 Personal history of nicotine dependence; Z20.822 Contact with and (suspected) exposure to COVID-19
CPT/HCPCS: 93005; 93306; 85025; 80048; 36415; 83735; 85610; 82947 ×2; 80076; 84484; 83880; 71045; 96374; 99285; U0003; J1940 ×2; J1650; G0378 ×2

== ENCOUNTER 2022-10-11 02:54 | Inpatient (IN) | payer OTHER ==
--- OUTSIDE RECORDS SUMMARY | 2022-10-11 03:05 | XMS REPORT | Continuity of Care Document ---
:1950 Author Organization [facility] t Address [address] [place] [address] Care Team Providers Name Role Phone Marisela Jorge Attending Clinician Unavailable Lisa Layton Attending Clinician Unavailable Physician, No Primary or Family Admitting Clinician UnavailJuma Jenkins I Admitting Clinician Unavailable Payers Payer Name Policy Type Policy Number Effective Date Expiration Date S ource Problems This patient has no known problems. Allergies, Adverse Reactions, Alerts Allergy Allergy Status Severity Reaction(s) Onset Inactive Treating Comm ents Source Name Type Date Date Clinician No Known DA Active U [facility]ie 3-15 Clear s 00:00: [address] No Known DA Active U [facility] Allergie 1-20 Clear s 00:00: [address] Medications This patient has no known medications. Procedures Procedure Date / Time Performed Performing Clinician Chintan velasco [id number] 2021-10-31 00:00:00 [facility] [id number] 2021-10-31 00:00:00 [facility] [id number] 2021-10-30 00:00:00 [facility] Encounters Start End Encounter Admission Attending Care Care Encounter Source Date/Time Date/Time Type Type Clinicians Facility Department ID 2021-12-24 2021-12-24 Inpatient MARIAM Ann OUTD [id number] [facility] 05:20:00 05:20:00 Jorge 69 [facility] 2021-11-26 2021-11-26 Inpatient MARIAM Ann OUTD [id number] [facility] 05:19:00 05:19:00 Jorge 76 [facility] 2021-10-31 2021-11-01 Inpatient EM KENIA Layton TELE [id number] [facility] 16:03:00 10:24:[address] [place] [address] jania ugalde [facility] Results Test Description Test Time Test [...] CA) 8.7 mg/dL 8.0-10.5 N CBC W/AUTO [id number] 16:03:00 Test Item Value Reference Range Interpretation [...] REQUIRED (test code NO = MDIFF) GLUCOSE [id number] 13:59:00 Test Item Value Reference Range Interpretation Comments GLUCOSE BEDSIDE (test 127 MG/DL 70-110 H Perfor med by certified code = GLUBED) lay out machine operator at [facility] [id number] 13:39:00 Test Item Value Reference Range Interpretation Comments ACT-ISTAT (test code 279 SEC 74-137 H Perform ed by certified = ACTI) lay out machine operator at [facility] [id number] 13:29:00 Test Item Value Reference Range Interpretation Comments ACT-ISTAT (test code 243 SEC 74-137 H Perform ed by certified = ACTI) lay out machine operator at [facility] [id number] 13:07:00 Test Item Value Reference Range Interpretation Comments ACT-ISTAT (test code 327 SEC 74-137 H Perform ed by certified = ACTI) lay out machine operator at [facility] GLUCOSE [id number] 10:34:00 Test Item Value Reference Range Interpretation Comments GLUCOSE BEDSIDE (test 154 MG/DL 70-110 H [facility] by certified code = GLUBED) lay out machine operator at [facility] BASIC METABOLIC [id number] 12:01:00 Test Item Value Reference Range Interpretation [...] = 9.1 mg/dL 8.0-10.5 N CA) PROTHROMBIN [id number] 11:36:00 Test Item Value Reference Range Interpretation Comments PROTHROMBIN TIME 13.5 SECONDS 9.3-12.9 H PATIENT (test code = PTP) INTERNATIONAL NORMAL 1.2 0.8-1.2 N TARGET INR BY RATIO (test code = INDICATIO N Indication INR) INR1. Prophylax is of venous thrombos is 2.0 - 3.0 (orthoped ic surgery), Proph ylaxis of venous throm bosis (other than hig h-risk surgery), Treat ment of Deep Vein Thrombosis/Pulm onary Embolism, Preve ntion of systemic emb olism - Tissue heart va lves, Acute Myocardia l Infarction (to prevent systemic emboli sm), Valvular heart disease, Atrial Fibrillation, Bileaflet mecha nical valve in aortic position.2. Mec hanical prosthetic valv es (high risk), 2. 5 - 3.5 Presence of Lup us Anticoagulant o r Antiphospholipi d Antibodies, Pre vention of systemic emb olism - Acute Myocardia l Infarction (to prevent recurrent infar ct). CBC W/AUTO [id number] 11:35:00 Test Item Value Reference Range Interpretation [...] (test code NO = MDIFF) BASIC METABOLIC [id number] 11:41:00 Test Item Value Reference Range Interpretation [...] 8.2 mg/dL 8.0-10.5 N CA) CBC W/AUTO [id number] 11:19:00 Test Item Value Reference Range Interpretation [...] 0.00 x10 3/uL 0.0-0.1 N NRBC#) GLUCOSE [id number] 09:23:00 Test Item Value Reference Range Interpretation Comments GLUCOSE BEDSIDE (test 108 MG/DL 70-110 N Perfor med by certified code = GLUBED) lay out machine operator at [facility] [id number] 08:44:00 Test Item Value Reference Range Interpretation Comments ACT-ISTAT (test code 273 SEC 74-137 H Perform ed by certified = ACTI) lay out machine operator at [facility] BASIC METABOLIC [id number] 08:38:00 Test Item Value Reference Range Interpretation [...] code = 8.3 mg/dL 8.0-10.5 N CA) [id number] 08:22:00 Test Item Value Reference Range Interpretation Comments ACT-ISTAT (test code 303 SEC 74-137 H Perform ed by certified = ACTI) lay out machine operator at [facility] GLUCOSE [id number] 06:14:00 Test Item Value Reference Range Interpretation Comments GLUCOSE BEDSIDE (test 115 MG/DL 70-110 H Perfor med by certified code = GLUBED) lay out machine operator at [facility] BASIC METABOLIC [id number] 11:09:00 Test Item Value Reference Range Interpretation Comments SODIUM (test code = NA) 144 mEq/L 134-147 N POTASSIUM (test code = 2.9 mEq/L 3.4-5.0 LL Criti kathie result K) called to SAMMI BOB/August RomeroLAB.LS at 110 2 11/24/21Nurse august fischer back resut and tech confirmed it's [...] = 8.1 mg/dL 8.0-10.5 N CA) PROTHROMBIN [id number] 10:36:00 Test Item Value Reference Range Interpretation Comments PROTHROMBIN TIME 15.2 SECONDS 9.3-12.9 H PATIENT (test code = PTP) INTERNATIONAL NORMAL 1.4 0.8-1.2 H TARGET INR BY RATIO (test code = INDICATIO N Indication INR) INR1. Prophylax is of venous thrombos is 2.0 - 3.0 (orthoped ic surgery), Proph ylaxis of venous throm bosis (other than hig h-risk surgery), Treat ment of Deep Vein Thrombosis/Pulm onary Embolism, Preve ntion of systemic emb olism - Tissue heart va lves, Acute Myocardia l Infarction (to prevent systemic emboli sm), Valvular heart disease, Atrial Fibrillation, Bileaflet mecha nical valve in aortic position.2. Mec hanical prosthetic valv es (high risk), 2. 5 - 3.5 Presence of Lup us Anticoagulant o r Antiphospholipi d Antibodies, Pre vention of systemic emb olism - Acute Myocardia l Infarction (to prevent recurrent infar ct). CBC W/AUTO [id number] 10:21:00 Test Item Value Reference Range Interpretation [...] = 0.00 x10 3/uL 0.0-0.1 N NRBC#) [id number] 14:18:00 Test Item Value Reference Range Interpretation Comments GLUBED (test code = GLUBED) 167 mg/dL 70-110 H [id number] 14:17:00 Test Item Value Reference Range Interpretation Comments GLUBED (test code = GLUBED) 117 mg/dL 70-110 H [id number] 07:34:00 Test Item Value Reference Range Interpretation Comments GLUBED (test code = GLUBED) 215 mg/dL 70-110 H CBC W/AUTO [id number] 06:26:00 Test Item Value Reference Range Interpretation [...] X10 3uL 0.00-0.01 N NRBC#) BASIC METABOLIC [id number] 06:17:00 Test Item Value Reference Range Interpretation [...] code = CA) 8.6 mg/dl 8.0-10.5 N [id number] 07:26:00 Test Item Value Reference Range Interpretation Comments TROPONIN-I (test 0.63 NG/ML 0.00-0.06 HH REFERENCE R XAVIER TROPONIN code = TROPI) I HEALTHY PERNELL VIDUALS: <0.06 ng/mL R/O ISCHEMIA: 0.07 - 0.60 ng/mL CUT-OFF R XAVIER FOR AMI: 0.60 - 1.5 ng/mL [id number] 06:10:00 Test Item Value Reference Range Interpretation Comments GLUBED (test code = GLUBED) 115 mg/dL 70-110 H [id number] 04:17:00 Test Item Value Reference Range Interpretation Comments TROPONIN-I (test 0.59 NG/ML 0.00-0.06 HH REFERENCE R XAVIER TROPONIN code = TROPI) I HEALTHY PERNELL VIDUALS: <0.06 ng/mL R/O ISCHEMIA: 0.07 - 0.60 ng/mL CUT-OFF R XAVIER FOR AMI: 0.60 - 1.5 ng/mL [id number] 22:52:00 Test Item Value Reference Range Interpretation Comments TROPONIN-I (test 0.43 NG/ML 0.00-0.06 H REFERENCE R XAVIER TROPONIN code = TROPI) I HEALTHY PERNELL VIDUALS: <0.06 ng/mL R/O ISCHEMIA: 0.07 - 0.60 ng/mL CUT-OFF R XAVIER FOR AMI: 0.60 - 1.5 ng/mL B-TYPE NATRIURETIC [id number] 17:55:00 Test Item Value Reference Range Interpretation Comments B-TYPE NATRIURETIC PEPTIDE (test 670 PG/ML 5-100 H code = BNP) [id number] 17:55:00 Test Item Value Reference Range Interpretation Comments TROPONIN-I (test 0.04 NG/ML 0.00-0.06 N REFERENCE R XAVIER TROPONIN code = TROPI) I HEALTHY PERNELL VIDUALS: <0.06 ng/mL R/O ISCHEMIA: 0.07 - 0.60 ng/mL CUT-OFF R XAVIER FOR AMI: 0.60 - 1.5 ng/mL BASIC METABOLIC [id number] 17:55:00 Test Item Value Reference Range Interpretation [...] code = CA) 8.5 mg/dl 8.0-10.5 N [id number] 17:52:00 Test Item Value Reference Range Interpretation Comments GLUBED (test code = GLUBED) 117 mg/dL 70-110 H COVID 19 Asymptomatic IH [id number] 17:49:00 Test Item Value Reference Range Interpretation Comments COVID 19 NEGATIVE NEGATIVE Negative result s should be Asymptomatic IH AG treated a s presumptive and (test code = ifinconsistent with COVNONPUIAG) clinical signs and symptoms, or ne cessaryfor patient managem ent, should be tested with an alternativemole cular assay. Negative results do not preclude [id number] tion and should not be u sed as the sole basis forp atient management deci sions. Negative result s should beconsidered in the context of a pa tient's recent exposure s,history, presence of cli nical signs and symptoms consistentwith COVID-19. PROTHROMBIN [id number] 17:20:00 Test Item Value Reference Range Interpretation Comments PROTHROMBIN TIME 15.1 SECONDS 9.9-12.8 H PATIENT (test code = PTP) INTERNATIONAL NORMAL 1.3 0.89-1.14 H THE INR IS TO BE USED RATIO (test code = ONLY FOR MONITORING INR) ORAL ANTICOAGULANTTH ERAPY. THE FOLLOWING A RE SUGGESTED RANGE S FROM [facility] COL LE[facility] OF CHEST PHYSICIANS:PERNELL CATION INR VALUEPROPHY LAXIS OF VENOUS THROM BOSIS (ORTHOPEDIC LEYLA MAIN) 2.0 - 3.0PROPHY LAXIS OF VENOUS THROM BOSIS (OTHER THAN HIG H-RISK SURGERY) 2.0 - 3.0TREATMENT OF DEEP VEIN THROMBOSIS OR PULMONARY EMBOL ISM 2.0 - 3.0PREVENTION OF SYSTEMIC EMBOLI SM TISSUE HEART VA LVES 2.0 - 3.0 ACUTE MYOCARDIAL INFA RCTION (TO PREVENT SYS TEMIC EMBOLISM) 2.0 - 3.0 ACUTE MYOCARDIA L INFARCTION (TO PREVENT RECURRENT INFAR CT) 2.5 - 3.0 VALVULAR HEART DISEASE 2.0 - 3 .0 ATRIAL FIBRILAT ION 2.0 - 3.0BILEAF LET MECHANICAL VALV E IN AORTIC POSITION 2.0 - 3.0MECHANICAL PROSTHETIC VALV ES (HIGH RISK) 2.5 - 3.5PRESENCE OF LUPUS ANTICOAGULANT O R ANTIPHOSPHOLIPI D ANTIBODIES 2.5 - 3.5 Specimen comments: .CBC W/AUTO [id number] 17:09:00 Test Item Value Reference Range Interpretation [...] 0.00-0.01 N NRBC#) - XR CHEST 1 [id number] 16:43:00 [facility] 1950 Sex: M FAX: Shara Jackman MD [phone] [place]: [address]: PRE Name: ELLE MERRITT [facility] : 1950 Age/S: 71/M [address] [place] [address] Pro V&V Unit #: [id number] Loc: E.[place], [place]: [place] [id number] Acct: [id number] Dis Date: Status: PRE ER PHONE #: [phone] Exam Date: 10/30/20211641 FAX #: [phone] Reason: SOB EXAMS: CPT CODE: [id number] XR CHEST 1 V [id number] EXAMINATION: - XR CHEST 1 V. LOCATION: B2. HISTORY: SOB. COMPARISON: None. TECHNIQUE: Single AP view of the chest was obtained. FINDINGS: The heart is enlarged in size. Left AICD device is present. There is mild prominence of the c entral pulmonary vasculature. No acute osseous abnormality is identified. IMPRESSION: Cardiomegaly with mild central pulmonary congestion. [id number] Reported and signed by: Rupal Gunter M.D. CC: Shara Jackman MD Technologist: JJ THOMAS Trnmerd Date/Time/By: 10/30/2021 (1973) : By: [email or web address] PAGE 1 Signed Report FAX: Shara Jackman MD [phone] [place]: St: PRE Name: ELLE MERRITT [facility] : 1950 Age/S: 71/M [address] [facility] Pro V&V Unit #: [id number] Loc: E.[place], [place]: [place] [address] Acct: [id number] Dis Date: Status: PRE ER PHONE #: [phone] Exam Date: 10/30/20211641 FAX #: [phone] Reason: SOB EXAMS: CPT CODE: [id number] XR CHEST 1 V [id number] (Continued) Orig Print D/T: S: 10/30/2021 (2824) PAGE 2 Signed Report
--- NOTE | 2022-10-11 04:20 | P.HP ---
Certification for Inpatient Patient admitted to: Inpatient With expected LOS: >2 Midnights Patient will require the following post-hospital care: None Practitioner: I am a practitioner with admitting privileges, knowledge of patient current condition, hospital course, and medical plan of care. Services: Services provided to patient in accordance with Admission requirements found in Title 42 Section 412.3 of the Code of Federal Regulations Patient History Date of Service: 10/11/22 Reason for admission: CHF Exacerbation History of Present Illness: Patient is a 72-year-old male with history of systolic CHF, IDDM, hypertension, CAD, COPD home O2 dependent, and pacemaker defibrillator who presented to the ED with complaints of chest pain, shortness of breath, worsening lower extremity edema. He was noted to be saturating 70% on RA upon arrival. 4+ pitting edema up to the thighs bilaterally. labs are significant for CO2 of 37, creatinine 1.52, BNP 1056. chest x-ray was unremarkable. He was given 40 mg IV lasix in ED with minimal improvement in edema. He was also given a breathing treatment placed on BiPAP. He states his breathing has improved. will admit for further evaluation and management of CHF exacerbation. Allergies No Known Allergies Allergy (Verified 03/07/22 00:07) Home Medications: Aspirin [Aspirin EC 81 MG] 81 mg PO DAILY #30 tablet. 03/27/22 Atorvastatin Calcium [Lipitor] 80 mg PO DAILY #30 tab 03/27/22 Clopidogrel Bisulfate [Plavix*] 75 mg PO DAILY #30 tablet 03/27/22 Insulin NPH Human [Novolin N (Humulin N)*] 10 units SQ BIDWM #10 ml 03/27/22 Metformin ER [Glucophage ER*] 500 mg PO BID #60 tab.sa 03/27/22 Spironolactone [Aldactone*] 25 mg PO DAILY 30 Days #30 tab 04/03/22 carvediloL [Coreg*] 3.125 mg PO BID 30 Days #60 tab 04/03/22 Bumetanide 2 mg PO BID 07/23/22 Fluticasone [Flonase 50MCG Nasal [place]*] 1 sprays YUE PRN PRN 07/23/22 Potassium Oral Tab [Klor-Con 10 mEq Tab*] 1 tab PO DAILY 07/23/22 glipiZIDE [Glipizide] 10 mg PO BID 07/23/22 Amiodarone HCl [Cordarone*] 200 mg PO BID 30 Days #60 tab 07/24/22 - Past Medical/Surgical History Diabetic: Yes -: HTN -: HLD -: DM insulin-dependent -: CAD -: myocardial infarcation -: CHF/systolic -: COPD on home O2, 5L -: pacemaker/defibrillator -: cardiac stent x2 -: lumbar laminectomy -: cervical spine surgery Psychosocial/ Personal History: Patient lives at home, alone - Social History Smoking Status: Current every day smoker Alcohol use: No CD- Drugs: No Caffeine use: Yes Place of Residence: Home Review of Systems Respiratory: Shortness of Breath Cardiovascular: Chest Pain, Edema Physical Examination - Vital Signs Temperature: 97.3 F Blood Pressure: 119/64 Pulse: 73 Respirations: 18 Pulse Ox (%): 100 (bipap) - Physical Exam General: Alert, In no apparent distress HEENT: Atraumatic, PERRLA, EOMI, Sclerae nonicteric Neck: Supple, 2+ carotid pulse no bruit, No LAD, Without JVD or thyroid abnormality Respiratory: Crackles/rales Cardiovascular: Regular rate/rhythm, Normal S1 S2, Edema Gastrointestinal: Normal bowel sounds, No tenderness Musculoskeletal: No tenderness Integumentary: No rashes Neurological: Normal speech, Normal strength at 5/5 x4 extr, Normal tone, Normal affect Assessment and Plan - Problems (Diagnosis) (1) Acute on chronic systolic heart failure Current Visit: Yes Status: Acute (2) CAD (coronary artery disease) Current Visit: Yes Status: Chronic Qualifiers: Coronary Disease-Associated Artery/Lesion type: [place] artery [place] vs. 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 Cardiology consult. Monitor on telemetry Continue diuresis with IV lasix. Currently on bipap. Wean as tolerated. ABG pending. 1500 cc/day fluid restriction. Monitor intake and output. ACHS accu checks with mild sliding scale insulin and diabetic diet. Reconcile and continue home medications. Lovenox for VTE prophylaxis. Full code. Discharge Plan: Home Plan to discharge in: Greater than 2 days - Advance Directives Does patient have a Living Will: No Does patient have a Durable POA for Healthcare: Yes - Code Status/Comfort Care Code Status Assessed: Yes Code Status: Full Code Physician Review: Patient Assessed, Agree with Above Assessment and Plan Critical Care: No Time Spent Managing Pts Care (In Minutes): 50
[2022-10-11] MEDS ORDERED: FUROSEMIDE 40 MG/4 ML VIAL ONE ×2 (04:31→13:23)
[2022-10-11 04:35] LABS: Protime INR 1.15
[2022-10-11 04:43] LABS: Absolute Lymphocytes (CBC) 1.3 K/uL (0.7-4.9); Hematocrit 48.7 % (39.6-49.0); Lymphocytes % 15.1 % (15.3-44.8); MCV 94.5 fL (80-100); RBC Red Blood Cell Count 5.15 M/uL (4.33-5.43)
[2022-10-11 05:06] LABS: Bilirubin Direct 0.2 mg/dL (0-0.2); Bilirubin Total 0.8 mg/dL (0.2-1.0); Potassium 3.9 mmol/L (3.5-5.1); Protein, Total 8.4 g/dL (6.4-8.2); Troponin High Sensitivity 45.1 pg/mL (<58.9)
[2022-10-11 05:07] LABS: Magnesium 1.8 mg/dL (1.6-2.4)
[2022-10-11 05:23] LABS: Urine Blood Negative (Negative); Urine Glucose Negative (Negative); Urine Protein Negative (Negative); Urine Specific Gravity 1.015 (1.005-1.030); Urine pH 7.5 (5.0-7.0)
[2022-10-11 05:35] LABS: SARS-COV-2 RT PCR NEGATIVE (NEGATIVE)
[2022-10-11] MEDS ORDERED: METHYLPREDNISOLONE 125 MG INJ ONE (05:43)
[2022-10-11] MEDS ORDERED: IPRATROPIUM BROM 0.5MG/2.5ML ONE (05:44)
[2022-10-11] MEDS ORDERED: FENTANYL CITR 100 MCG/2 ML ONE (05:44)
[2022-10-11] MEDS ORDERED: ONDANSETRON 4 MG/2 ML VIAL ONE (05:44)
[2022-10-11] MEDS ORDERED: LEVALBUTEROL 1.25 MG/3 ML NEB ONE (05:44)
--- NOTE | 2022-10-11 05:52 | EDPHYS ---
Physician Documentation [facility] Name: Willi Boudreaux Age: 72 yrs Sex: Male : 1950 Arrival Date: 10/11/2022 Time: 02:55 Bed 8 Private MD: ED Physician Yunier Mills HPI: 10/11 05:18 This 72 yrs old Black Male presents to ER via Wheelchair with complaints of Shortness berry Of Breath, Leg Swelling. 05:18 The patient has shortness of breath at rest, with light activity. berry Historical: - Allergies: 03:29 No Known Allergies; tw5 - PMHx: 03:29 asbestosis; CHF; COPD; diabetes mellitus; home O2 via NC at 5L; Hypertensive disorder; tw5 Myocardial infarction; - PSHx: 03:29 lumbar laminectomy, cervicle spine fusion; pacemaker; tw5 - Immunization history:: Flu vaccine is not up to date. - Social history:: Smoking status: Patient reports the use of cigarette tobacco products, smokes one-half pack cigarettes per day. ROS: 05:44 Constitutional: Negative for fever, chills, and weight loss, Eyes: Negative for injury, berry pain, redness, and discharge, ENT: Negative for injury, pain, and discharge, Neck: Negative for injury, pain, and swelling, Cardiovascular: Negative for chest pain, palpitations, and edema, Abdomen/GI: Negative for abdominal pain, nausea, vomiting, diarrhea, and constipation, Back: Negative for injury and pain, : Negative for injury, bleeding, discharge, and swelling, Skin: Negative for injury, rash, and discoloration, Neuro: Negative for headache, weakness, numbness, tingling, and seizure. 05:44 Respiratory: Positive for cough, with no reported sputum, dyspnea on exertion, orthopnea, shortness of breath. 05:44 MS/extremity: Positive for swelling, of the right leg and left leg. Exam: 05:44 Constitutional: This is a well developed, well nourished patient who is awake, alert, berry and in no acute distress. Head/Face: Normocephalic, atraumatic. Eyes: Pupils equal round and reactive to light, extra-ocular motions intact. Lids and lashes normal. Conjunctiva and sclera are non-icteric and not injected. Cornea within normal limits. Periorbital areas with no swelling, redness, or edema. ENT: Nares patent. No nasal discharge, no septal abnormalities noted. Tympanic membranes are normal and external auditory canals are clear. Oropharynx with no redness, swelling, or masses, exudates, or evidence of obstruction, uvula midline. Mucous membranes moist. Neck: Trachea midline, no thyromegaly or masses palpated, and no cervical lymphadenopathy. Supple, full range of motion without nuchal rigidity, or vertebral point tenderness. No Meningismus. Chest/axilla: Normal chest wall appearance and motion. Nontender with no deformity. No lesions are appreciated. Cardiovascular: Regular rate and rhythm with a normal S1 and S2. No gallops, murmurs, or rubs. Normal PMI, no JVD. No pulse deficits. Respiratory: Lungs have equal breath sounds bilaterally, clear to auscultation and percussion. No rales, rhonchi or wheezes noted. No increased work of breathing, no retractions or nasal flaring. Abdomen/GI: Soft, non-tender, with normal bowel sounds. No distension or tympany. No guarding or rebound. No evidence of tenderness throughout. Back: No spinal tenderness. No costovertebral tenderness. Full range of motion. Male : Normal genitalia with no discharge or lesions. Skin: Warm, dry with normal turgor. Normal color with no rashes, no lesions, and no evidence of cellulitis. Neuro: Awake and alert, GCS 15, oriented to person, place, time, and situation. Cranial nerves II-XII grossly intact. Motor strength 5/5 in all extremities. Sensory grossly intact. Cerebellar exam normal. Normal gait. Psych: Awake, alert, with orientation to person, place and time. Behavior, mood, and affect are within normal limits. 05:44 Cardiovascular: Rate: normal, actual rate is 73 bpm, Rhythm: regular, Pulses: Pulses are 4+ in bilateral radial, brachial, femoral, popliteal, posterior tibial and and dorsalis pedis arteries.. Heart sounds: normal, Edema: 4+ edema to level of left lower thigh, left midcalf, right lower thigh and right midcalf, JVD: is noted bilaterally, to the angle of the jaw. 05:44 ECG was reviewed by the Attending Physician. 05:44 Musculoskeletal/extremity: ROM: full active range of motion, full passive range of motion, Circulation is intact in all extremities. Sensation intact. Compartment Syndrome exam of affected extremity: is normal. Joints: All joints appear normal with full range of motion. DVT Exam: swelling, of the right leg, of the left leg, of the right leg and left leg. Vital Signs: 03:26 BP 119 / 64; Pulse 73; Resp 18; Temp 97.3; Pulse Ox 70% on R/A; Weight 112.49 kg; tw5 Height 5 ft. 10 in. (177.80 cm); Pain 10/10; 05:00 BP 142 / 69; Pulse 71; Resp 20; Pulse Ox 100% on BiPAP; jb4 06:03 BP 120 / 62; Pulse 83; Resp 17; Pulse Ox 95% on 4 lpm NC; jb4 07:07 BP 122 / 74; Pulse 69; Resp 19; Pulse Ox 93% on 5 lpm NC; jb4 03:26 Body Mass Index 35.58 (112.49 kg, 177.80 cm) tw5 03:26 4 L NC placed oxygen increased to 88% tw5 NIH Stroke Scale Scores: 05:44 NIHSS Score: 0 berry MDM: 03:15 Patient medically screened. berry 05:48 Differential diagnosis: Anemia Anxiety Reaction CHF exacerbation, Chronic Obstructive berry Pulmonary Disease pneumonia, pulmonary edema, reactive airway disease, Sepsis. Antibiotic administration: Not indicated, the patient does not have an appreciated infiltrate. The patient's [place] Deep Vein Thrombosis Score was calculated as follows: Total Score: 0-2 Pts- Low Risk. The patient's pulmonary embolism risk score was calculated as follows: Total Score: 0-2 points. This patient was found to be at low risk for a pulmonary embolism by using the Well's assessment criteria. Immunization status: Pneumococcal vaccine: Influenza vaccine: Data reviewed: vital signs, nurses notes, lab test result(s), EKG, radiologic studies, doppler. 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 Test interpretation: by ED physician or midlevel provider: ECG, plain radiologic studies. Counseling: I had a detailed discussion with the patient and/or guardian regarding: the historical points, exam findings, and any diagnostic results supporting the discharge/admit diagnosis, lab results, radiology results, the need for further work-up and treatment in the hospital. 10/11 03:21 Order name: Basic Metabolic Panel; Complete Time: 05:11 berry 10/11 03:21 Order name: CBC with Diff; Complete Time: 05:05 [facility] 10/11 03:21 Order name: LFT's; Complete Time: 05:11 [facility] 10/11 03:21 Order name: Magnesium; Complete Time: 05:11 berry 10/11 03:21 Order name: NT PRO-BNP; Complete Time: 05:11 [facility] 10/11 03:21 Order name: PT-INR; Complete Time: 04:41 [facility] 10/11 03:21 Order name: Troponin HS; Complete Time: 05:11 [facility] 10/11 03:21 Order name: XRAY Chest (1 view) [facility] 10/11 03:21 Order name: Lipase; Complete Time: 05:11 [facility] 10/11 03:21 Order name: COVID-19/FLU A+B; Complete Time: 06:18 [facility] 10/11 05:18 Order name: ABG [facility] 10/11 05:24 Order name: Urine Dipstick-Ancillary; Complete Time: 06:18 [facility] 10/11 06:46 Order name: Glucose, Ancillary Testing [facility] 10/11 12:16 Order name: Glucose, Ancillary Testing [facility] 10/11 03:21 Order name: EKG; Complete Time: 03:22 [facility] 10/11 03:21 Order name: Cardiac monitoring; Complete Time: 04:20 [facility] 10/11 03:21 Order name: EKG - Nurse/Tech; Complete Time: 04:20 [facility] 10/11 03:21 Order name: IV Saline Lock; Complete Time: 04:20 [facility] 10/11 03:21 Order name: Labs collected and sent; Complete Time: 04:20 [facility] 10/11 03:21 Order name: O2 Per Protocol; Complete Time: 04:20 berry 10/11 03:21 Order name: O2 Sat Monitoring; Complete Time: 04:20 berry 10/11 03:26 Order name: BIPAP [facility] 10/11 05:18 Order name: US Extremity Venous W Compression Antoni berry 10/11 13:38 Order name: US [facility] 10/11 03:21 Order name: Urine Dipstick-Ancillary (obtain specimen); Complete Time: 05:37 [facility] 10/11 06:18 Order name: PO challenge: juice; Complete Time: 06:30 [facility] 10/11 06:19 Order name: Blood Glucose Level; Complete Time: 06:34 berry EC:44 Rate is 67 beats/min. Rhythm is regular. QRS [place] is Normal. IA interval is normal. QRS berry interval is normal. QT interval is normal. No Q waves. T waves are Normal. No ST changes noted. Clinical impression: Abnormal EKG without significant change and No evidence of ischemia. Interpreted by me. Reviewed by me. Administered Medications: 04:35 Drug: Lasix (furosemide) 40 mg Route: IVP; Site: left hand; jb4 05:37 Follow up: Response: No adverse reaction jb4 06:00 Drug: SOLU-Medrol (methylPrednisoLONE) 125 mg Route: IVP; Site: left hand; jb4 06:00 Drug: Zofran (Ondansetron) 4 mg Route: IVP; Site: left hand; jb4 06:01 Drug: Xopenex (levalbuterol) 1.25 mg Route: Inhalation; jb4 06:01 Drug: AtroVENT (ipratropium) Aerosol 0.5 mg Route: Inhalation; jb4 06:01 Drug: fentaNYL (PF) 50 mcg Route: IVP; Site: left hand; jb4 Point of Care Testing: Blood Glucose: 06:34 Blood Glucose: 101 mg/dL; jb4 Ranges: Critical Glucose Levels:Adult <50 mg/dl or >400 mg/dl <40 mg/dl or >180 mg/dl Disposition Summary: 10/11/22 05:52 Hospitalization Ordered Hospitalization Status: Inpatient Admission berry Provider: Jamey Melendez cha Condition: Fair berry Problem: new berry Symptoms: have improved berry Bed/Room Type: Standard berry Location: Telemetry/MedSurg (Inpatient)(10/11/22 12:50) eb Room Assignment: 209(10/11/22 12:50) eb Diagnosis - Unspecified combined systolic (congestive) and diastolic (congestive) heart failure berry - Hypoxemia berry - Obesity, unspecified berry - COPD/ Chronic obstructive pulmonary disease, unspecified berry - Hypoglycemia, unspecified berry Forms: - Medication Reconciliation Form berry - SBAR form berry NIH Stroke Scale - NIH Stroke Score Date: 10/11/2022 Time: 05:44 Total Score = 0 1a. Level of Consciousness (LOC) - 0(Alert) 1b. Level of Consciousness (LOC) (Month \T\ Age) - 0(Both) 1c. LOC Commands (Open \T\ Closes Eyes/Pool Coordinator) - 0(Both) 2. Best Gaze (Lateral Gaze Paresis) - 0(Normal) 3. Visual Field Loss - 0(No visual loss) 4. Facial Palsy - 0(Normal) 5a. Left Arm: Motor (10-second hold) - 0(No drift) 5b. Right Arm: Motor (10-second hold) - 0(No drift) 6a. Left Leg: Motor (5-second hold - always test supine) - 0(No drift) 6b. Right Leg: Motor (5-second hold - always test supine) - 0(No drift) 7. Limb Ataxia (finger/nose \T\ heel/drake - test with eyes open) - 0(Absent) 8. Sensory Loss (pinprick arms/legs/face) - 0(Normal) 9. Best Language: Aphasia (description/naming/reading) - 0(No aphasia) 10. Dysarthria (speech clarity - read or repeat words) - 0(Normal) 11. Extinction and Inattention (visual/tactile/auditory/spatial/personal) - 0(No abnormality) Initials: [facility] Signatures: Dispatcher [employer] EDMS Marimar Gama RN RN mw Anderson, Corey, MD MD cha Bryson, James RN RN jb4 Dyana Valdez Tiffany tw5 Pattie Palma PA-C PAJuan Jose sb4 Corrections: (The following items were deleted from the chart) 05:53 05:52 Telemetry/MedSurg (Inpatient) [facility] 05:53 05:52 [facility] mw 12:50 05:53 [facility] ER HOLD mw eb 12:50 05:53 ERHOLD- mw eb
--- NOTE | 2022-10-11 05:52 | ER ---
Nurse's Notes [facility] Name: Willi Boudreaux Age: 72 yrs Sex: Male : 1950 Arrival Date: 10/11/2022 Time: 02:55 Bed 8 Private MD: Diagnosis: Unspecified combined systolic (congestive) and diastolic (congestive) heart failure;Hypoxemia;Obesity, unspecified;COPD/ Chronic obstructive pulmonary disease, unspecified;Hypoglycemia, unspecified Presentation: 10/11 03:26 Chief complaint: Patient states: "I drove myself here, but man that was an tw5 accomplishment. I usually wear oxygen at home around 4 L. I have a concentrator at home, but it has not been cutting. I feel an extreme tightness in my chest and pain in my legs.". Coronavirus screen: Vaccine status: Patient reports receiving the 2nd dose of the covid vaccine. [employer]. Ebola Screen: Patient negative for fever greater than or equal to 101.5 degrees Fahrenheit, and additional compatible Ebola Virus Disease symptoms Patient denies exposure to infectious person. Patient denies travel to an Ebola-affected area in the 21 days before illness onset. Initial Sepsis Screen: Does the patient meet any 2 criteria? RR > 20 per min. No. Patient's initial sepsis screen is negative. Does the patient have a suspected source of infection? No. Patient's initial sepsis screen is negative. Risk Assessment: Do you want to hurt yourself or someone else? Patient reports no desire to harm self or others. Onset of symptoms was October 09, 2022. 03:26 Method Of Arrival: Wheelchair tw5 03:26 Acuity: DAI 2 tw5 Triage Assessment: 03:29 General: Appears uncomfortable, Behavior is appropriate for age, agitated, anxious. tw5 Pain: Complains of pain in chest, right leg and left leg Pain currently is 10 out of 10 on a pain scale. Respiratory: Reports shortness of breath at rest labored breathing Onset: The symptoms/episode began/occurred gradually, the patient has moderate shortness of breath. Historical: - Allergies: 03:29 No Known Allergies; tw5 - PMHx: 03:29 asbestosis; CHF; COPD; diabetes mellitus; home O2 via NC at 5L; Hypertensive disorder; tw5 Myocardial infarction; - PSHx: 03:29 lumbar laminectomy, cervicle spine fusion; pacemaker; tw5 - Immunization history:: Flu vaccine is not up to date. - Social history:: Smoking status: Patient reports the use of cigarette tobacco products, smokes one-half pack cigarettes per day. Screenin:30 [facility] ED Fall Risk Assessment (Adult) History of falling in the last 3 months, jb4 including since admission No falls in past 3 months (0 pts) Confusion or Disorientation No (0 pts) Intoxicated or Sedated No (0 pts) Impaired Gait No (0 pts) Mobility Assist Device Used Yes (1 pt) Altered Elimination No (0 pt) Score/Fall Risk Level 0 - 2 = Low Risk Oriented to surroundings, Maintained a safe environment, Educated pt \\T\\ family on fall prevention, incl call for assistance when getting out of bed. Abuse screen: Denies threats or abuse. Nutritional screening: No deficits noted. Tuberculosis screening: No symptoms or risk factors identified. Assessment: 03:30 General: Appears in no apparent distress. uncomfortable, Behavior is calm, cooperative, jb4 appropriate for age. Pain: Complains of pain in right leg and left leg Pain does not radiate. Pain currently is 9 out of 10 on a pain scale. Neuro: Level of Consciousness is awake, alert, obeys commands, Oriented to person, place, time, situation. Cardiovascular: Patient's skin is warm and dry. Respiratory: Reports shortness of breath on exertion Airway is patent Respiratory effort is even, unlabored, Respiratory pattern is regular, symmetrical. GI: No signs and/or symptoms were reported involving the gastrointestinal system. : No signs and/or symptoms were reported regarding the genitourinary system. EENT: No signs and/or symptoms were reported regarding the EENT system. Derm: Skin is intact, Skin is dry, Skin is normal, Skin temperature is warm. Musculoskeletal: Circulation, motion, and sensation intact. Range of motion: intact in all extremities, Swelling present in right leg and left leg. 05:00 Reassessment: Patient appears in no apparent distress at this time. Patient and/or jb4 family updated on plan of care and expected duration. Pain level reassessed. Patient is alert, oriented x 3, equal unlabored respirations, skin warm/dry/pink. 05:45 Reassessment: Patient appears in no apparent distress at this time. Patient and/or jb4 family updated on plan of care and expected duration. Pain level reassessed. Patient is alert, oriented x 3, equal unlabored respirations, skin warm/dry/pink. Pt refusing to wear bi-pap stating " It is too damn cold. I just can't do it.". Pt placed back on nasal cannula. 06:30 Reassessment: Patient appears in no apparent distress at this time. Patient and/or jb4 family updated on plan of care and expected duration. Pain level reassessed. Patient is alert, oriented x 3, equal unlabored respirations, skin warm/dry/pink. Pt continues to refuse bi-pap. Vital Signs: 03:26 BP 119 / 64; Pulse 73; Resp 18; Temp 97.3; Pulse Ox 70% on R/A; Weight 112.49 kg; tw5 Height 5 ft. 10 in. (177.80 cm); Pain 10/10; 05:00 BP 142 / 69; Pulse 71; Resp 20; Pulse Ox 100% on BiPAP; jb4 06:03 BP 120 / 62; Pulse 83; Resp 17; Pulse Ox 95% on 4 lpm NC; jb4 07:07 BP 122 / 74; Pulse 69; Resp 19; Pulse Ox 93% on 5 lpm NC; 4 03:26 Body Mass Index 35.58 (112.49 kg, 177.80 cm) tw5 03:26 4 L NC placed oxygen increased to 88% tw5 NIH Stroke Scale Scores: 05:44 NIHSS Score: 0 [facility] ED Course: 02:55 Patient arrived in ED. ja2 03:13 Yunier Mills MD is Attending Physician. [facility] 03:29 Triage completed. tw5 03:29 Arm band placed on. tw5 03:30 Patient has correct armband on for positive identification. Placed in gown. Bed in low tw5 position. Call light in reach. Side rails up X 1. Side rails up X2. Client placed on continuous cardiac and pulse oximetry monitoring. NIBP monitoring applied. Door closed. Noise minimized. Moved to private room. Warm blanket given. Verbal reassurance given. 03:51 XRAY Chest (1 view) In Process Unspecified. EDMS 03:59 Nuria Clarke RN is Primary Nurse. kd3 04:19 Troponin HS Sent. kd3 04:19 PT-INR Sent. kd3 04:20 NT PRO-BNP Sent. kd3 04:20 Magnesium Sent. kd3 04:20 LFT's Sent. kd3 04:20 CBC with Diff Sent. kd3 04:20 Basic Metabolic Panel Sent. kd3 04:34 COVID-19/FLU A+B Sent. kd3 04:34 Inserted saline lock: 22 gauge in left hand, using aseptic technique. Blood collected. kd3 05:51 Jamey Melendez MD is Hospitalizing Provider. berry 07:00 No provider procedures requiring assistance completed. Patient admitted, IV remains in jl7 place. intact, No redness/swelling at site. Administered Medications: 04:35 Drug: Lasix (furosemide) 40 mg Route: IVP; Site: left hand; jb4 05:37 Follow up: Response: No adverse reaction jb4 06:00 Drug: SOLU-Medrol (methylPrednisoLONE) 125 mg Route: IVP; Site: left hand; jb4 06:00 Drug: Zofran (Ondansetron) 4 mg Route: IVP; Site: left hand; jb4 06:01 Drug: Xopenex (levalbuterol) 1.25 mg Route: Inhalation; jb4 06:01 Drug: AtroVENT (ipratropium) Aerosol 0.5 mg Route: Inhalation; jb4 06:01 Drug: fentaNYL (PF) 50 mcg Route: IVP; Site: left hand; jb4 Medication: 13:30 VIS not applicable for this client. [facility] Point of Care Testing: Blood Glucose: 06:34 Blood Glucose: 101 mg/dL; jb4 Ranges: Outcome: 05:52 Decision to Hospitalize by Provider. berry 07:30 Admitted to ER Hold. Please see [facility] for further documentation. hb 07:30 Condition: stable 07:30 Instructed on the need for admit, Demonstrated understanding of instructions. 13:[address] [facility] NIH Stroke Scale - NIH Stroke Score Date: 10/11/2022 Time: 05:44 Total Score = 0 1a. Level of Consciousness (LOC) - 0(Alert) 1b. Level of Consciousness (LOC) (Month \\T\\ Age) - 0(Both) 1c. LOC Commands (Open \\T\\ Closes Eyes/Academic Support Director) - 0(Both) 2. Best Gaze (Lateral Gaze Paresis) - 0(Normal) 3. Visual Field Loss - 0(No visual loss) 4. Facial Palsy - 0(Normal) 5a. Left Arm: Motor (10-second hold) - 0(No drift) 5b. Right Arm: Motor (10-second hold) - 0(No drift) 6a. Left Leg: Motor (5-second hold - always test supine) - 0(No drift) 6b. Right Leg: Motor (5-second hold - always test supine) - 0(No drift) 7. Limb Ataxia (finger/nose \\T\\ heel/drake - test with eyes open) - 0(Absent) 8. Sensory Loss (pinprick arms/legs/face) - 0(Normal) 9. Best Language: Aphasia (description/naming/reading) - 0(No aphasia) 10. Dysarthria (speech clarity - read or repeat words) - 0(Normal) 11. Extinction and Inattention (visual/tactile/auditory/spatial/personal) - 0(No abnormality) Initials: berry Signatures: Dispatcher [employer] EDYunier Guadarrama MD MD cha Baxter, Heather RN RN Seng Lane RN RN jb4 Yonis Alvarez RN RN jl7 Sera Antonio2 Janna Antunez tw5 Nuria Clarke RN RN kd3 Corrections: (The following items were deleted from the chart) 06:03 06:03 BP 120 / 62; Pulse 83bpm; Resp 17bpm; Pulse Ox 95% Nasal Cannula; 4 jb 07:07 03:30 Reassessment: See triage note 4 jb 07:11 06:30 Reassessment: Patient appears in no apparent distress at this time. jb4 Patient and/or family updated on plan of care and expected duration. Pain level reassessed. Patient is alert, oriented x 3, equal unlabored respirations, skin warm/dry/pink. jb4
[2022-10-11] MEDS: ASPIRIN EC 81 MG TAB PO SCH (10:54)
[2022-10-11] MEDS: FUROSEMIDE 40 MG/4 ML VIAL IV SCH ×2 (10:54→17:13)
[2022-10-11] MEDS: INSULIN -REGULAR HUMAN 50 UNIT/0.5 ML ML SQ SCH ×4 (10:54→19:57)
[2022-10-11] MEDS ORDERED: ONDANSETRON 4 MG/2 ML VIAL IV PRN (10:54)
[2022-10-11] MEDS ORDERED: ALBUTEROL 2.5 MG/3 ML NEB SOL NEB PRN (10:54)
[2022-10-11] MEDS: ENOXAPARIN 40 MG/0.4 ML SQ SCH (10:54)
[2022-10-11] MEDS ORDERED: ACETAMINOPHEN 500 MG TAB PO PRN (10:54)
[2022-10-11] MEDS ORDERED: INSULIN -REGULAR HUMAN 50 UNIT/0.5 ML ML ONE (12:21)
[2022-10-11] MEDS ORDERED: ASPIRIN EC 81 MG TAB PO ONE (12:21)
[2022-10-11] MEDS ORDERED: ENOXAPARIN 40 MG/0.4 ML SQ ONE (12:21)
[2022-10-11] MEDS ORDERED: PNEUMOCOCCAL VACCINE 0.5 ML IMVAC ONE (13:00)
--- NOTE | 2022-10-11 13:38 | RAD REPORT ---
EXAM DESCRIPTION: US - Extrem Venous W Compress Antoni - 10/11/2022 1:28 pm CLINICAL HISTORY: Pain COMPARISON: None. TECHNIQUE: Real-time sonographic evaluation of the bilateral lower extremity common femoral, superfi cial femoral, popliteal and posterior tibial veins was performed. FINDINGS: Normal compressibility, flow augmentation, phasic flow and spontaneous flow are identified in the left and right lower extremity common femoral, superficial femoral, popliteal and posterior t ibial veins. No intraluminal filling defects seen. IMPRESSION: No DVT in either lower extremity.
[2022-10-11] MEDS ORDERED: D50W 25 GM/50 ML SYRINGE IV PRN (16:39)
[2022-10-11] MEDS ORDERED: GLUCAGON 1 MG/VIAL IM PRN (16:39)
--- NOTE | 2022-10-11 16:55 | P.PN ---
Date of Service: 10/11/22 Patient's shortness of breath has significantly improved. He has been weaned off BiPAP to oxygen by nasal cannula. Diagnosis: Acute on chronic diastolic heart failure. Acute respiratory failure with hypoxia. plan: Continue IV Lasix. Monitor intake and output. Most recent echo 03/2022 shows EF of 50 to 55%. Troponin is negative.
[2022-10-11] MEDS: NPH (HUMAN) 100 UNITS/ML INSULIN SQ SCH (17:00)
--- NOTE | 2022-10-11 18:55 | CON ---
Date of Consultation: 10/11/2022 Reason For Consultation: CHF exacerbation. History Of Present Illness: A 72-year-old male with history of systolic and diastolic heart failure, diabetes, hypertension, coronary artery disease, status post multiple stents placement, COPD, on jo e O2. Presented with worsening shortness of breath, lower extremity edema and orthopnea. His oxygen saturation noted to be 70% upon arrival, has 4+ pedal edema bilaterally. The patient is not complia nt with treatment and diet, and has not followed up in the office for some time now. Past Medical History: Significant for systolic heart failure, diabetes, hypertension, coronary arter y disease, COPD, and hypertension. Medications: Refer to reconciliation sheet for detailed list. Medications were reviewed. Allergies: NO KNOWN DRUG ALLERGIES. Family History: No premature coronary artery disease or cancer. Social History: Active smoker of half to 1 pack per day. Does not drink, use any drugs. Review of Systems: All systems reviewed and they were negative except what mentioned in HPI. Physical Examination: Vital Signs: Temperature is 96.9, pulse 70, breathing at 18, blood pressure 110/52, saturating 90%. General: This is an elderly male, in no apparent distress. Head and Neck: Pupils are equal, reactive to light. Intact eye movements. Positive JVD elevation. No cervical lymphadenopathy. Neck is supple. Thyroid is not enlarged. Lungs: Crackles in both lung ferreira with no accessory muscle use or muscle retraction. Heart: Irregular. No extra sounds. Abdomen: Soft, nontender. Bowel sounds positive. No organomegaly. No masses or hernia. No rigidi ty or rebound. Extremities: 4+ pedal edema bilaterally. No clubbing or cyanosis. Intact pulses. Skin: No rash. Neurologic: Alert, awake, oriented x3. No acute focal deficits appreciated. Lymph Nodes: No cervical or axillary lymphadenopathy. Investigations: BUN is 11, creatinine 1.5, and hemoglobin is 15.6. Troponin is negative and his low er extremity venous Doppler is with no DVT. Assessment And Recommendations: 1.Acute on chronic systolic heart failure exacerbation, severely fluid overloaded. Continue aggress jonas diuresis with Lasix. Monitor BUN, creatinine, electrolytes. 2.Coronary artery disease. There is no chest pain. Troponin is negative. Continue home medication s and recheck 1 more troponin. 3.Dyslipidemia. Continue statin. 4.Hypertension. Blood pressure is controlled at the present time. We will follow the patient with you. /[place] Voice ID: [id number] Report ID: [id number]
[2022-10-11] MEDS: HYDROCODONE/APAP 5/325 MG TAB PO PRN (19:58)
[2022-10-11] MEDS: carvediloL 3.125 MG TAB PO SCH (19:59)
[2022-10-11] MEDS: AMIODARONE HCL 200 MG TAB PO SCH (20:01)
[2022-10-11] MEDS ORDERED: POTASSIUM CL SA 10 MEQ TAB PO ONE (21:00)
[2022-10-11] MEDS ORDERED: MAGNESIUM SULFATE 1 gm IVPB 1 GM/100 ML BAG IV ONE (21:00)
--- NOTE | 2022-10-11 21:12 | RAD REPORT ---
EXAM DESCRIPTION: RAD - Chest Single View - 10/11/2022 3:49 am CLINICAL HISTORY: The patient is 72 years old and is Male; COUGH TECHNIQUE: Frontal view of the chest. COMPARISON: No relevant prior studies available. FINDINGS: LUNGS: Linear atelectasis/scarring within the right midlung is noted. The lungs are othe rwise clear. PLEURAL SPACE: Unremarkable. No pneumothorax. HEART: Unremarkable. No cardiomegaly. MEDIASTINUM: Unremarkable. BONES/JOINTS: Unremarkable. TUBES, LINES AND DEVICES: A left-sided pacemaker is present. UPPER ABDOMEN: Unremarkable as visualized. IMPRESSION: No acute cardiopulmonary process. Electronically signed by: La Nena Whitman MD 10/11/2022 4:37 AM SALES REPRESENTATIVE [employer] Due to temporary technical issues with the PACS/Fluency reporting system, reports are being signed by the in house radiologists without review as a courtesy to insure prompt reporting. The interpreting radiologist is fully responsible for the content of the report.
[2022-10-12 06:26] LABS: Absolute Lymphocytes (CBC) 0.5 K/uL (0.7-4.9); Hematocrit 42.3 % (39.6-49.0); Lymphocytes % 3.6 % (15.3-44.8); MCV 95.4 fL (80-100); MPV 8.8 fL (7.6-11.3); RBC Red Blood Cell Count 4.44 M/uL (4.33-5.43)
[2022-10-12 06:53] LABS: Magnesium 2.3 mg/dL (1.6-2.4); Phosphorus 4.8 mg/dL (2.5-4.9); Potassium 5.3 mmol/L (3.5-5.1); Thyroid Stimulating Hormone 0.353 uIU/mL (0.358-3.740)
[2022-10-12 08:45] LABS: Blood Morphology Comment NOT SEEN (NOT SEEN); Platelet Estimate ADEQ; Platelets, Giant 1+; White Blood Cell Scan OK (OK)
[2022-10-12] MEDS ORDERED: SPIRONOLACTONE 25 MG TABLET PO SCH (09:00)
[2022-10-12] MEDS ORDERED: ASPIRIN EC 81 MG TAB PO SCH (09:00)
[2022-10-12] MEDS: NPH (HUMAN) 100 UNITS/ML INSULIN SQ SCH ×2 (09:10→16:40)
[2022-10-12] MEDS: HYDROCODONE/APAP 5/325 MG TAB PO PRN ×2 (09:10→15:01)
[2022-10-12] MEDS: INSULIN -REGULAR HUMAN 50 UNIT/0.5 ML ML SQ SCH ×4 (09:10→20:35)
[2022-10-12] MEDS: ENOXAPARIN 40 MG/0.4 ML SQ SCH (09:11)
[2022-10-12] MEDS: CLOPIDOGREL 75 MG TABLET PO SCH (09:11)
[2022-10-12] MEDS: FUROSEMIDE 40 MG/4 ML VIAL IV SCH ×2 (09:11→22:54)
[2022-10-12] MEDS: carvediloL 3.125 MG TAB PO SCH ×2 (09:11→20:44)
[2022-10-12] MEDS: ASPIRIN EC 81 MG TAB PO SCH (09:11)
[2022-10-12] MEDS: ATORVASTATIN 80 MG TAB PO SCH (09:11)
[2022-10-12] MEDS: AMIODARONE HCL 200 MG TAB PO SCH ×2 (09:11→20:44)
[2022-10-12] MEDS: FLUTICASONE 50MCG NASAL SPRAY NAS PRN ×2 (09:17→20:48)
[2022-10-12] MEDS ORDERED: PNEUMOCOCCAL VACCINE 0.5 ML IMVAC ONE (13:00)
--- NOTE | 2022-10-12 14:45 | P.PN ---
Subjective Date of Service: 10/12/22 Chief Complaint: CHF Exacerbation Patient is complaining of shortness of breath and painful leg swelling in both legs. Oxygen requirement has increased, patient is currently requiring 10 L by nasal cannula. Physical Examination - Vital Signs Temperature: 97.6 F Blood Pressure: 132/63 Pulse: 63 Respirations: 18 Pulse Ox (%): 99 - Physical Exam General: Alert, In no apparent distress, Obese HEENT: Mucous membr. moist/pink Neck: JVD not distended Respiratory: Diminished (Bilateral), Other (No rhonchi or wheezes.) Cardiovascular: Regular rate/rhythm, Normal S1 S2, Edema (3+ bilateral lower extremity edema) Gastrointestinal: Soft and benign, Non-distended Musculoskeletal: Swelling (Bilateral legs) Integumentary: Other (Bilateral lower extremity xerosis) Neurological: Other (No focal motor deficit) Lymphatics: Other (Bilateral lower extremity lymphedema) Assessment And Plan - Current Problems (Diagnosis) (1) Acute on chronic diastolic heart failure Current Visit: Yes Status: Acute (2) Lymphedema of both lower extremities Current Visit: Yes Status: Acute (3) CAD (coronary artery disease) Current Visit: Yes Status: Chronic Qualifiers: Coronary Disease-Associated Artery/Lesion type: l[place] artery [place] vs. transplanted heart: lytton heart Associated angina: without angina Qualified Code(s): I25.10 - Atherosclerotic heart disease of l[place] coronary artery without angina pectoris (4) COPD (chronic obstructive pulmonary disease) Current Visit: Yes Status: Chronic Qualifiers: COPD type: unspecified COPD Qualified Code(s): J44.9 - Chronic obstructive pulmonary disease, unspecified (5) Anasarca Current Visit: No Status: Acute - Plan Patient has not responded well to IV Lasix. Nephrology consulted to assist with management. Recommending Lasix drip. Monitor renal function. Wean oxygen as tolerated. Bumetanide is on hold. Continue amiodarone and Coreg. Supportive measures with pain management. Cardiology input appreciated. Troponin trended negative. Monitor and optimize electrolytes.
--- NOTE | 2022-10-12 15:41 | P.CNS ---
Date of Consult: 10/12/22 Reason for Consult: Kayleea Requesting Physician: gabriela arcos Chief Complaint: CHF Exacerbation History of Present Illness: Patient is a 72-year-old male with history of systolic CHF, IDDM, hypertension, CAD, COPD home O2 dependent, and pacemaker defibrillator who presented to the ED with complaints of chest pain, shortness of breath, worsening lower extremity edema. He was noted to be saturating 70% on RA upon arrival. 4+ pitting edema up to the thighs bilaterally. labs are significant for CO2 of 37, creatinine 1.52, BNP 1056. chest x-ray was unremarkable. He was given 40 mg IV lasix in ED with minimal improvement in edema. He was also given a breathing treatment placed on BiPAP. He states his breathing has improved. will admit for further evaluation and management of CHF exacerbation. 05:18 This 72 yrs old Black Male presents to ER via Wheelchair with complaints of Shortness berry Of Breath, Leg Swelling. 05:18 The patient has shortness of breath at rest, with light activity. Allergies No Known Allergies Allergy (Verified 03/07/22 00:07) Home medications list reviewed: Yes Home Medications: Aspirin [Aspirin EC 81 MG] 81 mg PO DAILY #30 tablet. 03/27/22 Atorvastatin Calcium [Lipitor] 80 mg PO DAILY #30 tab 03/27/22 Clopidogrel Bisulfate [Plavix*] 75 mg PO DAILY #30 tablet 03/27/22 Insulin NPH Human [Novolin N (Humulin N)*] 10 units SQ BIDWM #10 ml 03/27/22 Metformin ER [Glucophage ER*] 500 mg PO BID #60 tab.sa 03/27/22 Spironolactone [Aldactone*] 25 mg PO DAILY 30 Days #30 tab 04/03/22 carvediloL [Coreg*] 3.125 mg PO BID 30 Days #60 tab 04/03/22 Bumetanide 2 mg PO BID 07/23/22 Fluticasone [Flonase 50MCG Nasal [place]*] 1 sprays YUE PRN PRN 07/23/22 Potassium Oral Tab [Klor-Con 10 mEq Tab*] 1 tab PO DAILY 07/23/22 glipiZIDE [Glipizide] 10 mg PO BID 07/23/22 Amiodarone HCl [Cordarone*] 200 mg PO BID 30 Days #60 tab 07/24/22 - Past Medical/Surgical History Diabetic: Yes -: HTN -: HLD -: DM insulin-dependent -: CAD -: myocardial infarcation -: Systolic CHF -: COPD on home O2, 5L -: CKD II/ Proteinuria (Dr. Dacosta) -: pacemaker/defibrillator -: cardiac stent x2 -: lumbar laminectomy -: cervical spine surgery Psychosocial/ Personal History: Patient lives at home, alone - Social History Smoking Status: Current every day smoker Alcohol use: No CD- Drugs: No Caffeine use: Yes Place of Residence: Home Review of Systems 10-point ROS is otherwise unremarkable Respiratory: SOB with Excertion Cardiovascular: Edema Physical Examination Temp Pulse Resp BP Pulse Ox 97.6 F 63 18 132/63 99 10/12/22 14:53 10/12/22 14:53 10/12/22 15:01 10/12/22 14:53 10/12/22 15:01 General: In no apparent distress, Oriented x3, Cooperative HEENT: Atraumatic Neck: Supple Respiratory: Clear to auscultation bilaterally Cardiovascular: Regular rate/rhythm, Edema Gastrointestinal: Soft and benign, Non-distended Musculoskeletal: No clubbing, No contractures Integumentary: No rashes, No cyanosis Neurological: Normal speech Blood work reviewed in the chart. Imagings Data: [facility] EXAM DESCRIPTION: Javier Single View10/12/2022 3:27 pm CLINICAL HISTORY: Shortness of breath COMPARISON: October 11, 2022 FINDINGS: The lungs appear clear of acute infiltrate. The heart is mildly enlarged. Pacemaker leads in place IMPRESSION: Resolution of pulmonary edema Conclusions/Impression: Stage I LEELA likely CRS CKD II with proteinuria -No NSAIDs Hypervolemic Hyponatremia -Continue Lasix Hyperkalemia -Continue Lasix -Holding parameter for spironolactone Metabolic Alkalosis -Diamox X1 HTN with CKD/ CKD -Continue Coreg Systolic CHF, A/C LVEF 43% -Low sodium diet -Increase Lasix IV q6h -Continue Spironolactone DM II with CKD -RISS -Continue NPH insulin BID Case reviewed with Dr. Arcos Thank you kindly for the consultation
--- NOTE | 2022-10-12 15:46 | RAD REPORT ---
EXAM DESCRIPTION: Javier Single View10/12/2022 3:27 pm CLINICAL HISTORY: Shortness of breath COMPARISON: October 11, 2022 FINDINGS: The lungs appear clear of acute infiltrate. The heart is mildly enlarged. Pacemaker leads in place IMPRESSION: Resolution of pulmonary edema
[2022-10-12] MEDS: SPIRONOLACTONE 25 MG TABLET PO SCH (15:57)
[2022-10-12] MEDS ORDERED: FUROSEMIDE 40 MG/4 ML VIAL IV SCH ×2 (16:00→17:00)
[2022-10-12] MEDS ORDERED: acetaZOLAMIDE 250 MG TAB PO ONE (17:00)
--- NOTE | 2022-10-12 17:11 | PN ---
Date of Progress Note: 10/12/2022 Subjective: Seen by bedside. Doing clinically well, however, continues to have significant lower ex tremity edema and shortness of breath and exertional orthopnea. Review of Systems: No chest pain. Has shortness of breath on minimal exertion. Does not have any chest pain. Has orth opnea with lower extremity edema. No dysuria, polyuria or urinary urgency. All other systems review ed are negative. Physical Examination: Vital Signs: Reviewed. Head and Neck: Pupils are equal, reactive to light. Intact eye movements. Positive JVD. No cervic al lymphadenopathy. Neck is supple. Thyroid is not enlarged. Lungs: Decreased breathing sounds with crackles in bases. No accessory muscle use or muscle retract ion. Heart: Irregular with S3 gallop. Abdomen: Soft, nontender. Bowel sounds positive. No organomegaly. No masses or hernia. No rigidi ty or rebound. Extremities: 4+ pedal edema. It is not even better comparing to yesterday. Intact pulses. Skin: No rash. Neurologic: Alert, awake, oriented x3. No acute focal deficits appreciated. Lymph Nodes: No cervical or axillary lymphadenopathy. Investigations: BUN 16, creatinine 1.44. Assessment And Recommendations: 1.Severe acute on chronic systolic heart failure exacerbation. Massive fluid overload condition. I ncrease the Lasix to 40 mg IV q.8 hours. Strict low-sodium diet and monitor BUN, creatinine, electro lytes. 2.Hyperkalemia. This probably in part due to the Aldactone. I will discontinue it and actively diu rese the patient further. 3.Atrial fibrillation. Rate is controlled. Continue current management. 4.Coronary artery disease, status post stent placement. Continue aspirin and Plavix. SR/MODL Voice ID: [id number] Report ID: [id number]
--- NOTE | 2022-10-12 20:21 | P.PN ---
Date of Service: 10/13/22 Subjective: no acute events overnight slightly improved respirations, still on 10L NC ROS: A complete review of systems was performed and is negative except as mentioned above Physical Exam: Gen: NAD, AOx3 HEENT: normal conjunctiva, sclera anicteric CV: regular rate & rhythm, 3+ b/l lower extremity edema Pulm: diminished bilaterally, on 10L NC Abd: soft, non-tender, non-distended Neuro: normal speech, normal affect, moves all extremities vitals reviewed Problem List Acute on chronic diastolic congestive heart failure LEELA on CKD2 history of CAD/CHF with pacemaker/defibrillator in place Diabetes mellitus type 2insulin-dependent Hypertension Hyperlipidemia COPD/asbestosis on chronic home O2, 5 L Patient has not responded well to IV Lasix initially Nephrology consulted to assist with management. increased lasix to 80mg q8h; consideration for lasix drip Bumetanide is on hold. UOP improved 1/3 after increase of lasix Continue amiodarone and Coreg. Supportive measures with pain management. Cardiology input appreciated. echo ordered Troponin trended negative. Monitor and optimize electrolytes. LEELA likely secondary to cardiorenal syndrome Dispo: home, ~2 days Time Spent Managing Pts Care (In Minutes): 35
[2022-10-13 04:07] LABS: Absolute Lymphocytes (CBC) 1.4 K/uL (0.7-4.9); Hematocrit 40.6 % (39.6-49.0); Lymphocytes % 11.2 % (15.3-44.8); MCV 95.3 fL (80-100); MPV 9.2 fL (7.6-11.3); RBC Red Blood Cell Count 4.26 M/uL (4.33-5.43)
[2022-10-13 04:08] LABS: Potassium 4.5 mmol/L (3.5-5.1)
[2022-10-13] MEDS: FUROSEMIDE 40 MG/4 ML VIAL IV SCH ×4 (04:16→22:15)
[2022-10-13] MEDS: INSULIN -REGULAR HUMAN 50 UNIT/0.5 ML ML SQ SCH ×4 (07:30→21:11)
[2022-10-13] MEDS: ASPIRIN EC 81 MG TAB PO SCH (08:20)
[2022-10-13] MEDS: ENOXAPARIN 40 MG/0.4 ML SQ SCH (08:20)
[2022-10-13] MEDS: CLOPIDOGREL 75 MG TABLET PO SCH (08:20)
[2022-10-13] MEDS: AMIODARONE HCL 200 MG TAB PO SCH ×2 (08:21→21:10)
[2022-10-13] MEDS: ATORVASTATIN 80 MG TAB PO SCH (08:21)
[2022-10-13] MEDS: SPIRONOLACTONE 25 MG TABLET PO SCH (08:21)
[2022-10-13] MEDS: carvediloL 3.125 MG TAB PO SCH ×2 (08:22→21:09)
[2022-10-13] MEDS: NPH (HUMAN) 100 UNITS/ML INSULIN SQ SCH ×2 (08:25→17:04)
[2022-10-13] MEDS: acetaZOLAMIDE 250 MG TAB PO SCH ×2 (08:33→16:01)
--- NOTE | 2022-10-13 08:35 | EKG ---
Test Date: 2022-10-11 Test Time: 04:02:28 [employer]: MEASUREMENT RESULTS: Intervals: Rate: 76 [place]: QRSD: 102 QT: 524 QTc: 589 [place]: P: 79 [place]: QRS: 250 T: -23 INTERPRETIVE STATEMENTS: Ventricular-paced rhythm with occasional premature ventricular complexes Abnormal ECG Compared to ECG 07/22/2022 17:52:03 Ventricular premature complex(es) now present Electronically Signed On 10-13-22 08:32:43 COMMUNICATIONS COORDINATOR by Alon Aaron
[2022-10-13] MEDS: HYDROCODONE/APAP 5/325 MG TAB PO PRN ×2 (12:51→21:10)
[2022-10-13] MEDS ORDERED: ALBUTEROL 2.5 MG/3 ML NEB SOL NEB PRN (16:00)
--- NOTE | 2022-10-13 20:21 | P.PN ---
Date of Service: 10/13/22 Vital Signs Temp Pulse Resp BP Pulse Ox 97.0 F 60 18 127/71 91 10/13/22 16:00 10/13/22 16:00 10/13/22 16:00 10/13/22 16:00 10/13/22 16:00 Medications Acetaminophen (Acetaminophen 500 Mg Tab) 500 mg PO Q4HP PRN PRN Reason: Pain scale 2-4 (Mild) Hydrocodone Bitart/Acetaminophen (Hydrocodone/Apap 5/325 Mg Tab) 1 tab PO Q6H PRN PRN Reason: Pain scale 5-7 (Moderate) Last Admin: 10/13/22 12:51 Dose: 1 tab Acetazolamide (Acetazolamide 250 Mg Tab) 250 mg PO BIDL [facility] Last Admin: 10/13/22 16:01 Dose: 250 mg Albuterol Sulfate (Albuterol 2.5 Mg/3 Ml Neb Raya) 2.5 mg NEB [id number] PRN PRN Reason: SHORTNESS OF BREATH Amiodarone HCl (Amiodarone Hcl 200 Mg Tab) 200 mg PO BID [facility] Last Admin: 10/13/22 08:21 Dose: 200 mg Aspirin (Aspirin Ec 81 Mg Tab) 81 mg PO DAILY [facility] Last Admin: 10/13/22 08:20 Dose: 81 mg Atorvastatin Calcium (Atorvastatin 80 Mg Tab) 80 mg PO DAILY [facility] Last Admin: 10/13/22 08:21 Dose: 80 mg Carvedilol (Carvedilol 3.125 Mg Tab) 3.125 mg PO BID [facility] Last Admin: 10/13/22 08:22 Dose: 3.125 mg Clopidogrel Bisulfate (Clopidogrel 75 Mg Tablet) 75 mg PO DAILY [facility] Last Admin: 10/13/22 08:20 Dose: 75 mg Enoxaparin Sodium (Enoxaparin 40 Mg/0.4 Ml) 40 mg SQ DAILY [facility] Last Admin: 10/13/22 08:20 Dose: 40 mg Fluticasone Propionate (Fluticasone 50mcg Nasal [place]) 1 sprays YUE PRN PRN PRN Reason: NASAL CONGESTION Last Admin: 10/12/22 20:48 Dose: 1 spray Furosemide (Furosemide 40 Mg/4 Ml Vial) 80 mg IV Q6H [facility] Last Admin: 10/13/22 16:02 Dose: 80 mg Glucagon (Glucagon 1 Mg/Vial) 1 mg IM 1X PRN; Protocol PRN Reason: HYPOGLYCEMIA Insulin Human NPH (Nph (Human) 100 Units/Ml Insulin) 10 units SQ BIDWM [facility] Last Admin: 10/13/22 17:04 Dose: 10 units Insulin Human Regular (Insulin -Regular Human 50 Unit/0.5 Ml Ml) 0 unit SQ ACHS [facility]; Protocol Last Admin: 10/13/22 17:04 Dose: 3 unit Ondansetron HCl (Ondansetron 4 Mg/2 Ml Vial) 4 mg IV Q6HP PRN PRN Reason: NAUSEA / VOMITING Sodium Chloride (Flush Normal Saline 10 Ml) 10 ml IV BID [facility] Last Admin: 10/13/22 08:26 Dose: 10 ml Spironolactone (Spironolactone 25 Mg Tablet) 25 mg PO DAILY [facility] Last Admin: 10/13/22 08:21 Dose: 25 mg Assessment/ Plan: Nephrology No dyspnea No chest pain Persistent edema No acute events overnight Vitals, medications, blood work and imaging reviewed in the chart. General: In no apparent distress, Oriented x3, Cooperative HEENT: Atraumatic Neck: Supple Respiratory: Clear to auscultation bilaterally Cardiovascular: Regular rate/rhythm, Edema Gastrointestinal: Soft and benign, Non-distended Musculoskeletal: No clubbing, No contractures Integumentary: No rashes, No cyanosis Neurological: Normal speech Blood work reviewed in the chart. Imagings Data: [facility] EXAM DESCRIPTION: Javier Single View10/12/2022 3:27 pm CLINICAL HISTORY: Shortness of breath COMPARISON: October 11, 2022 FINDINGS: The lungs appear clear of acute infiltrate. The heart is mildly enlarged. Pacemaker leads in place IMPRESSION: Resolution of pulmonary edema Conclusions/Impression: Stage I LEELA likely CRS CKD II with proteinuria -No NSAIDs Hypervolemic Hyponatremia -Continue Lasix Hyperkalemia -Continue Lasix -Holding parameter for spironolactone Metabolic Alkalosis -Start Diamox 250mg BID HTN with CKD/ CKD -Continue Coreg Systolic CHF, A/C LVEF 43% -Low sodium diet -Increase Lasix IV q6h -Continue Spironolactone DM II with CKD -RISS -Continue NPH insulin BID Case reviewed with Dr. Taveras
--- NOTE | 2022-10-13 20:29 | PN ---
Date of Progress Note: 10/13/2022 Subjective: Seen by bedside. Continues to have significant fluid overload with significant lower ex tremity edema, slightly better comparing to yesterday. Review of Systems: No chest pain. Has shortness of breath on exertion. No nausea, vomiting, or diarrhea. No dysuria, polyuria, or urinary urgency. All other systems reviewed and they are negative. Physical Examination: Vital Signs: Reviewed. Head And Neck: Pupils are equal and reactive to light. Intact eye movements. Mild JVD elevation. No cervical lymphadenopathy. Neck is supple. Thyroid is not enlarged. Lungs: Clear to auscultation bilaterally. No rhonchi, wheezing, or crackles. No accessory muscle u se. Heart: Regular rate and rhythm. No extra sounds. Abdomen: Soft, nontender. Bowel sounds positive. No organomegaly. No masses or hernia. No rigidi ty or rebound. Extremities: 4+ edema bilaterally. No clubbing or cyanosis. Intact pulses. Skin: No rash noted. Neuro: Alert, awake, and oriented x3. No acute focal deficits appreciated. Investigations: BUN is 24 and creatinine 1.5. Assessment/recommendation: 1.Pjhom-tz-uqespty systolic heart failure exacerbation. Massive fluid retention, has anasarca. Con tinue aggressive diuresis. The diuretics were adjusted by Nephrology. Might need to put him on Lasi x drip, high-dose Lasix and monitoring BUN, creatinine, and electrolytes. 2.Coronary artery disease. No chest pain. Continue to monitor. Continue aspirin, Plavix, and statin. 3.Dyslipidemia. Continue statin. SR/MODL Voice ID: [id number] Report ID: [id number]
[2022-10-14] MEDS: FUROSEMIDE 40 MG/4 ML VIAL IV SCH ×4 (04:34→22:00)
[2022-10-14 06:10] LABS: Absolute Lymphocytes (CBC) 1.3 K/uL (0.7-4.9); Lymphocytes % 15.2 % (15.3-44.8); MCV 95.2 fL (80-100); RBC Red Blood Cell Count 4.62 M/uL (4.33-5.43)
[2022-10-14 06:37] LABS: Potassium 4.6 mmol/L (3.5-5.1)
--- NOTE | 2022-10-14 06:51 | P.PN ---
Date of Service: 10/14/22 Subjective: O2 weaned down slightly feels slight improvement UOP increased yesterday with higher lasix dose stilll with very swollen legsj q pt found smoking in room yesterday, with O2 running; cigarettes and meat and seafood clerk confiscated by nursing staff ROS: A complete review of systems was performed and is negative except as mentioned above Physical Exam: Gen: NAD, AOx3 HEENT: normal conjunctiva, sclera anicteric CV: regular rate & rhythm, 3+ b/l lower extremity edema Pulm: diminished bilaterally, on 7L NC Abd: soft, non-tender, non-distended Neuro: normal speech, normal affect, moves all extremities vitals reviewed Problem List Acute on chronic diastolic congestive heart failure LEELA on CKD2 history of CAD/CHF with pacemaker/defibrillator in place Diabetes mellitus type 2insulin-dependent Hypertension Hyperlipidemia COPD/asbestosis on chronic home O2, 5 L Now responding to higher lasix dose Nephrology consulted to assist with management. increased lasix to 80mg q8h; consideration for lasix drip Bumetanide is on hold. UOP improved 1/3 after increase of lasix Continue amiodarone and Coreg. Supportive measures with pain management. Cardiology input appreciated. echo ordered Troponin trended negative. Monitor and optimize electrolytes. LEELA likely secondary to cardiorenal syndrome slight increase in Cr with increased lasix dose, monitor closely Dispo: home, ~2 days Time Spent Managing Pts Care (In Minutes): 35
[2022-10-14] MEDS: NPH (HUMAN) 100 UNITS/ML INSULIN SQ SCH ×2 (08:37→16:26)
[2022-10-14] MEDS: SPIRONOLACTONE 25 MG TABLET PO SCH (08:38)
[2022-10-14] MEDS: INSULIN -REGULAR HUMAN 50 UNIT/0.5 ML ML SQ SCH ×4 (08:38→22:33)
[2022-10-14] MEDS: carvediloL 3.125 MG TAB PO SCH ×2 (08:39→22:33)
[2022-10-14] MEDS: CLOPIDOGREL 75 MG TABLET PO SCH (08:39)
[2022-10-14] MEDS: ENOXAPARIN 40 MG/0.4 ML SQ SCH (08:39)
[2022-10-14] MEDS: AMIODARONE HCL 200 MG TAB PO SCH ×2 (08:39→22:39)
[2022-10-14] MEDS: acetaZOLAMIDE 250 MG TAB PO SCH ×2 (08:39→17:31)
[2022-10-14] MEDS: ASPIRIN EC 81 MG TAB PO SCH (09:49)
[2022-10-14] MEDS: ATORVASTATIN 80 MG TAB PO SCH (09:49)
--- NOTE | 2022-10-14 11:11 | PN ---
Date of Progress Note: 10/14/2022 Subjective: Seen by bedside. He is doing better. Lower extremity edema has improved and shortness of breath has improved. Review of Systems: There is no chest pain. Has orthopnea and shortness of breath on exertion and lower extremity edema. No chest pain. No nausea, vomiting, diarrhea. No abdominal pain. No dysuria, polyuria, or urinar y urgency. All other systems reviewed and they were negative. Physical Examination: Vital Signs: Reviewed. Head and Neck: Pupils are equal, reactive to light. Intact eye movements. Positive JVD. No cervic al lymphadenopathy. Neck is supple. Thyroid is not enlarged. Lungs: Crackles in both bases. No accessory muscle use or muscle retraction. Heart: Irregular. No extra sounds. Abdomen: Soft, nontender. Bowel sounds positive. No organomegaly. No masses or hernia. No rigidi ty or rebound. Extremities: 3+ pedal improved comparing to yesterday. No clubbing or cyanosis. Intact pulses. Skin: No rash. Neurologic: Alert, awake, oriented x3. No acute focal deficits appreciated. Investigations: BUN 28, creatinine 1.66, and hemoglobin 13.9. Assessment And Recommendations: 1.Acute on chronic systolic heart failure exacerbation, improving gradually. Continue Lasix q.6 andrea rs. Monitor BUN, creatinine, and electrolytes. 2.Acute renal failure. This is a cardiorenal despite the fact that he is severely fluid overloaded and his BUN and creatinine slightly going up. Monitor this carefully and recommend Nephrology evalua tion. 3.Coronary artery disease. There is no chest pain. Continue aspirin and Plavix. 4.Dyslipidemia. Continue statin. SR/MODL Voice ID: [id number] Report ID: [id number]
--- NOTE | 2022-10-14 16:10 | EKG ---
Test Date: 2022-10-11 Test Time: 04:02:54 Unit Director: MEASUREMENT RESULTS: Intervals: Rate: 67 MN: 118 QRSD: 178 QT: 524 QTc: 553 [place]: P: 76 MN: 118 QRS: 232 T: -37 INTERPRETIVE STATEMENTS: Atrial-sensed ventricular-paced rhythm with occasional AV dual-paced complexes Abnormal ECG Compared to ECG 10/11/2022 04:02:28 Ventricular premature complex(es) no longer present Electronically Signed On 10-14-22 16:06:46 STREETCAR REPAIRER HELPER by Jorge Antonio
--- NOTE | 2022-10-14 21:11 | P.PN ---
Date of Service: 10/14/22 Vital Signs Temp Pulse Resp BP Pulse Ox 97.3 F 67 20 125/70 95 10/14/22 20:00 10/14/22 20:00 10/14/22 20:00 10/14/22 20:00 10/14/22 20:00 Medications Acetaminophen (Acetaminophen 500 Mg Tab) 500 mg PO Q4HP PRN PRN Reason: Pain scale 2-4 (Mild) Hydrocodone Bitart/Acetaminophen (Hydrocodone/Apap 5/325 Mg Tab) 1 tab PO Q6H PRN PRN Reason: Pain scale 5-7 (Moderate) Last Admin: 10/13/22 21:10 Dose: 1 tab Acetazolamide (Acetazolamide 250 Mg Tab) 250 mg PO BIDL [facility] Last Admin: 10/14/22 17:31 Dose: 250 mg Albuterol Sulfate (Albuterol 2.5 Mg/3 Ml Neb Raya) 2.5 mg NEB [id number] PRN PRN Reason: SHORTNESS OF BREATH Amiodarone HCl (Amiodarone Hcl 200 Mg Tab) 200 mg PO BID [facility] Last Admin: 10/14/22 08:39 Dose: 200 mg Aspirin (Aspirin Ec 81 Mg Tab) 81 mg PO DAILY [facility] Last Admin: 10/14/22 09:49 Dose: 81 mg Atorvastatin Calcium (Atorvastatin 80 Mg Tab) 80 mg PO DAILY [facility] Last Admin: 10/14/22 09:49 Dose: 80 mg Carvedilol (Carvedilol 3.125 Mg Tab) 3.125 mg PO BID [facility] Last Admin: 10/14/22 08:39 Dose: 3.125 mg Clopidogrel Bisulfate (Clopidogrel 75 Mg Tablet) 75 mg PO DAILY [facility] Last Admin: 10/14/22 08:39 Dose: 75 mg Enoxaparin Sodium (Enoxaparin 40 Mg/0.4 Ml) 40 mg SQ DAILY [facility] Last Admin: 10/14/22 08:39 Dose: 40 mg Fluticasone Propionate (Fluticasone 50mcg Nasal [place]) 1 sprays YUE PRN PRN PRN Reason: NASAL CONGESTION Last Admin: 10/12/22 20:48 Dose: 1 spray Furosemide (Furosemide 40 Mg/4 Ml Vial) 80 mg IV Q6H [facility] Last Admin: 10/14/22 16:27 Dose: 80 mg Glucagon (Glucagon 1 Mg/Vial) 1 mg IM 1X PRN; Protocol PRN Reason: HYPOGLYCEMIA Insulin Human NPH (Nph (Human) 100 Units/Ml Insulin) 10 units SQ BIDWM [facility] Last Admin: 10/14/22 16:26 Dose: 10 units Insulin Human Regular (Insulin -Regular Human 50 Unit/0.5 Ml Ml) 0 unit SQ ACHS [facility]; Protocol Last Admin: 10/14/22 16:27 Dose: 5 unit Ondansetron HCl (Ondansetron 4 Mg/2 Ml Vial) 4 mg IV Q6HP PRN PRN Reason: NAUSEA / VOMITING Sodium Chloride (Flush Normal Saline 10 Ml) 10 ml IV BID [facility] Last Admin: 10/14/22 09:50 Dose: 10 ml Spironolactone (Spironolactone 25 Mg Tablet) 25 mg PO DAILY [facility] Last Admin: 10/14/22 08:38 Dose: 25 mg Assessment/ Plan: Nephrology No dyspnea No chest pain Persistent edema No acute events overnight Vitals, medications, blood work and imaging reviewed in the chart. General: In no apparent distress, Oriented x3, Cooperative HEENT: Atraumatic Neck: Supple Respiratory: Clear to auscultation bilaterally Cardiovascular: Regular rate/rhythm, Edema Gastrointestinal: Soft and benign, Non-distended Musculoskeletal: No clubbing, No contractures Integumentary: No rashes, No cyanosis Neurological: Normal speech Blood work reviewed in the chart. Imagings Data: EXAM DESCRIPTION: Javier Single View10/12/2022 3:27 pm CLINICAL HISTORY: Shortness of breath COMPARISON: October 11, 2022 FINDINGS: The lungs appear clear of acute infiltrate. The heart is mildly enlarged. Pacemaker leads in place IMPRESSION: Resolution of pulmonary edema Conclusions/Impression: Stage I LEELA likely CRS CKD II with proteinuria -No NSAIDs Hypervolemic Hyponatremia -Continue Lasix Hyperkalemia -Continue Lasix -Holding parameter for spironolactone Metabolic Alkalosis -Continue Diamox 250mg BID HTN with CKD/ CKD -Continue Coreg Systolic CHF, A/C LVEF 43% -Low sodium diet -Continue Lasix IV q6h -Continue Spironolactone DM II with CKD -RISS -Continue NPH insulin BID Case reviewed with Dr. Taveras
[2022-10-15] MEDS: FUROSEMIDE 40 MG/4 ML VIAL IV SCH ×4 (05:19→21:41)
[2022-10-15 06:05] VITALS: BMI 33.5
[2022-10-15 06:20] LABS: Albumin 3.3 g/dL (3.4-5.0); Bilirubin Total 0.7 mg/dL (0.2-1.0); Magnesium 2.6 mg/dL (1.6-2.4); Potassium 4.3 mmol/L (3.5-5.1); Protein, Total 8.5 g/dL (6.4-8.2)
--- NOTE | 2022-10-15 06:43 | P.PN ---
Date of Service: 10/15/22 Subjective: no acute events overnight good UOP yesterday improving slowly no new/worsening symptoms ROS: A complete review of systems was performed and is negative except as mentioned above Physical Exam: Gen: NAD, AOx3 HEENT: normal conjunctiva, sclera anicteric CV: regular rate & rhythm, 2-3+ b/l lower extremity edema to knees Pulm: diminished bilaterally, on 6L NC Abd: soft, non-tender, non-distended Neuro: normal speech, normal affect, moves all extremities vitals reviewed Problem List Acute on chronic diastolic congestive heart failure LEELA on CKD2 history of CAD/CHF with pacemaker/defibrillator in place Diabetes mellitus type 2insulin-dependent Hypertension Hyperlipidemia COPD/asbestosis on chronic home O2, 5 L Now responding to higher lasix dose Nephrology consulted to assist with management. continue lasix to 80mg q8h; consideration for lasix drip continue aldactone, diamox home bumetanide is on hold. UOP improved 1/3 after increase of lasix Continue amiodarone and Coreg. Cardiology input appreciated. echo pending Troponin trended negative. Monitor and optimize electrolytes. LEELA likely secondary to cardiorenal syndrome slight increase in Cr but minimal; with increased lasix dose, Dispo: home, ~1-2 days Time Spent Managing Pts Care (In Minutes): 25
--- NOTE | 2022-10-15 07:18 | ECHO ---
HEIGHT: 5 ft 10 in WEIGHT: 233 lb 4.8 oz DATE OF STUDY: 10/14/[address]: Dakota Mercado MD 2-DIMENSIONAL: YES M.MODE: YES DOPPLER: YES COLOR FLOW: YES TDS: YES PORTABLE: DEFINITY: BUBBLE STUDY: DIAGNOSIS: ACUTE CONGESTIVE HEART FAILURE CARDIAC HISTORY: CATHERIZATION: SURGERY: PROSTHETIC VALVE: PACEMAKER: MEASUREMENTS (cm) DIASTOLIC (NORMALS) SYSTOLIC (NORMALS) IVSd 1.1 (0.6-1.2) LA Diam 3.6 (1.9-4.0) LVEF 64% LVIDd 3.4 (3.5-5.7) LVIDs 2.3 (2.0-3.5) %FS 34% LVPWd 1.3 (0.6-1.2) Ao Diam 3.2 (2.0-3.7) 2 DIMENSIONAL ASSESSMENT: RIGHT ATRIUM: NORMAL LEFT ATRIUM: NORMAL RIGHT VENTRICLE: NORMAL LEFT VENTRICLE: NORMAL TRICUSPID VALVE: MILD TRICUSPID REGURGITATION MITRAL VALVE: NORMAL PULMONIC VALVE: NORMAL AORTIC VALVE: NORMAL PERICARDIAL EFFUSION: NONE AORTIC ROOT: NORMAL LEFT VENTRICULAR WALL MOTION: UNABLE TO EVALUATE DUE TO POOR WINDOWS DOPPLER/COLOR FLOW: MILD TRICUSPID REGURGITATION COMMENTS: 1. VERY LIMITED EXAM DUE TO POOR WINDOWS 2. OVERALL LEFT VENTRICULAR EJECTION FRACTION APPEARS NORMAL, RECOMMEND CONTRAST MANAGER DRIVE: CARLOS ENRIQUE FRAGA
[2022-10-15] MEDS: acetaZOLAMIDE 250 MG TAB PO SCH ×2 (08:17→17:00)
[2022-10-15] MEDS: carvediloL 3.125 MG TAB PO SCH ×2 (08:17→20:42)
[2022-10-15] MEDS: ATORVASTATIN 80 MG TAB PO SCH (08:17)
[2022-10-15] MEDS: ENOXAPARIN 40 MG/0.4 ML SQ SCH (08:17)
[2022-10-15] MEDS: SPIRONOLACTONE 25 MG TABLET PO SCH (08:18)
[2022-10-15] MEDS: AMIODARONE HCL 200 MG TAB PO SCH ×2 (08:18→20:43)
[2022-10-15] MEDS: CLOPIDOGREL 75 MG TABLET PO SCH (08:18)
[2022-10-15] MEDS: ASPIRIN EC 81 MG TAB PO SCH (08:18)
[2022-10-15] MEDS: NPH (HUMAN) 100 UNITS/ML INSULIN SQ SCH ×2 (08:19→17:01)
[2022-10-15] MEDS: INSULIN -REGULAR HUMAN 50 UNIT/0.5 ML ML SQ SCH ×4 (08:19→20:54)
--- NOTE | 2022-10-15 19:41 | PN ---
Date of Progress Note: 10/15/2022 Subjective: Stable bedside. Continues to diurese well. No new complaints. Review of Systems: Positive for shortness of breath, lower extremity edema, and orthopnea. No nausea, vomiting, or diar william. No dysuria, polyuria, or urinary urgency. All other systems reviewed and they were negative. Laboratory Data: BUN 31, creatinine is 1.45 and the hemoglobin is 13.9. Assessment/recommendation: 1.[id number] diastolic heart failure exacerbation. Continue aggressive diuresis with the Lasi x q.6 hours. Monitor BUN, creatinine, and electrolytes. Might need to add metolazone to augment diu resis if he quits responding to IV Lasix. 2.Coronary artery disease, stable. No chest pain. Continue aspirin and Plavix. 3.Chronic kidney disease, responding well to diuresis and Nephrology is following. SR/MODL Voice ID: [id number] Report ID: [id number]
--- NOTE | 2022-10-15 22:38 | P.PN ---
Date of Service: 10/15/22 Vital Signs Temp Pulse Resp BP Pulse Ox 97.4 F 61 18 93/53 L 95 10/15/22 16:00 10/15/22 21:41 10/15/22 16:00 10/15/22 21:41 10/15/22 16:00 Medications Acetaminophen (Acetaminophen 500 Mg Tab) 500 mg PO Q4HP PRN PRN Reason: Pain scale 2-4 (Mild) Acetazolamide (Acetazolamide 250 Mg Tab) 250 mg PO BIDL [facility] Last Admin: 10/15/22 17:00 Dose: Not Given Albuterol Sulfate (Albuterol 2.5 Mg/3 Ml Neb [place]) 2.5 mg NEB [id number] PRN PRN Reason: SHORTNESS OF BREATH Amiodarone HCl (Amiodarone Hcl 200 Mg Tab) 200 mg PO BID [facility] Last Admin: 10/15/22 20:43 Dose: 200 mg Aspirin (Aspirin Ec 81 Mg Tab) 81 mg PO DAILY [facility] Last Admin: 10/15/22 08:18 Dose: 81 mg Atorvastatin Calcium (Atorvastatin 80 Mg Tab) 80 mg PO DAILY [facility] Last Admin: 10/15/22 08:17 Dose: 80 mg Carvedilol (Carvedilol 3.125 Mg Tab) 3.125 mg PO BID [facility] Last Admin: 10/15/22 20:42 Dose: Not Given Clopidogrel Bisulfate (Clopidogrel 75 Mg Tablet) 75 mg PO DAILY [facility] Last Admin: 10/15/22 08:18 Dose: 75 mg Enoxaparin Sodium (Enoxaparin 40 Mg/0.4 Ml) 40 mg SQ DAILY [facility] Last Admin: 10/15/22 08:17 Dose: 40 mg Fluticasone Propionate (Fluticasone 50mcg Nasal [place]) 1 sprays YUE PRN PRN PRN Reason: NASAL CONGESTION Last Admin: 10/12/22 20:48 Dose: 1 spray Furosemide (Furosemide 40 Mg/4 Ml Vial) 80 mg IV Q6H [facility] Last Admin: 10/15/22 21:41 Dose: Not Given Glucagon (Glucagon 1 Mg/Vial) 1 mg IM 1X PRN; Protocol PRN Reason: HYPOGLYCEMIA Insulin Human NPH (Nph (Human) 100 Units/Ml Insulin) 10 units SQ BIDWM [facility] Last Admin: 10/15/22 17:01 Dose: 10 units Insulin Human Regular (Insulin -Regular Human 50 Unit/0.5 Ml Ml) 0 unit SQ ACHS [facility]; Protocol Last Admin: 10/15/22 20:54 Dose: 3 unit Ondansetron HCl (Ondansetron 4 Mg/2 Ml Vial) 4 mg IV Q6HP PRN PRN Reason: NAUSEA / VOMITING Sodium Chloride (Flush Normal Saline 10 Ml) 10 ml IV BID [facility] Last Admin: 10/15/22 20:44 Dose: 10 ml Spironolactone (Spironolactone 25 Mg Tablet) 25 mg PO DAILY [facility] Last Admin: 10/15/22 08:18 Dose: 25 mg Assessment/ Plan: Nephrology No dyspnea No chest pain Persistent edema Fatigue and weakness No acute events overnight Vitals, medications, blood work and imaging reviewed in the chart. General: In no apparent distress, Oriented x3, Cooperative HEENT: Atraumatic Neck: Supple Respiratory: Clear to auscultation bilaterally Cardiovascular: Regular rate/rhythm, Edema Gastrointestinal: Soft and benign, Non-distended Musculoskeletal: No clubbing, No contractures Integumentary: No rashes, No cyanosis Neurological: Normal speech Blood work reviewed in the chart. Imagings Data: [facility]27 [facility] CLINICAL HISTORY: Shortness of breath COMPARISON: October 11, 2022 FINDINGS: The lungs appear clear of acute infiltrate. The heart is mildly enlarged. Pacemaker leads in place IMPRESSION: Resolution of pulmonary edema Conclusions/Impression: Stage I LEELA likely CRS CKD II with proteinuria -No NSAIDs Hypervolemic Hyponatremia -Continue Lasix -Fluid restriction 1200ml per day Hyperkalemia -Continue Lasix -Holding parameter for spironolactone Metabolic Alkalosis -Continue Diamox 250mg BID HTN with CKD/ CKD -Continue Coreg Systolic CHF, A/C LVEF 43% -Low sodium diet -Continue Lasix IV q6h -Continue Spironolactone DM II with CKD -RISS -Continue NPH insulin BID Case reviewed with Dr. Taveras
[2022-10-16] MEDS: FUROSEMIDE 40 MG/4 ML VIAL IV SCH ×3 (04:00→16:12)
--- NOTE | 2022-10-16 07:15 | P.PN ---
Date of Service: 10/16/22 Subjective: no acute events overnight UOP improved yesterday, lasix held due to low blood pressure swelling slightly improved, remains on 6-7L NC ROS: A complete review of systems was performed and is negative except as mentioned above Physical Exam: Gen: NAD, AOx3 HEENT: normal conjunctiva, sclera anicteric CV: regular rate & rhythm, 2-3+ b/l lower extremity edema to knees Pulm: diminished bilaterally, on 7L NC Abd: soft, non-tender, non-distended Neuro: normal speech, normal affect, moves all extremities vitals reviewed Problem List Acute on chronic diastolic congestive heart failure LEELA on CKD2 history of CAD/CHF with pacemaker/defibrillator in place Diabetes mellitus type 2insulin-dependent Hypertension Hyperlipidemia COPD/asbestosis on chronic home O2, 5 L Responding to higher lasix dose Nephrology consulted to assist with management. decrease lasix 80mg q8h, pt with borderline low BP continue aldactone, diamox home bumetanide is on hold. UOP improved 1/3 after increase of lasix / addition of diamox Continue amiodarone. dc'd coreg due to blood pressure Cardiology input appreciated. Troponin trended negative. Monitor and optimize electrolytes. LEELA likely secondary to cardiorenal syndrome slight increase in Cr but minimal; with increased lasix dose, Dispo: home, ~2-3 days Time Spent Managing Pts Care (In Minutes): 25
[2022-10-16] MEDS: NPH (HUMAN) 100 UNITS/ML INSULIN SQ SCH ×2 (08:49→16:13)
[2022-10-16] MEDS: AMIODARONE HCL 200 MG TAB PO SCH ×2 (08:50→21:44)
[2022-10-16] MEDS: INSULIN -REGULAR HUMAN 50 UNIT/0.5 ML ML SQ SCH ×4 (08:50→21:44)
[2022-10-16] MEDS: ENOXAPARIN 40 MG/0.4 ML SQ SCH (08:51)
[2022-10-16] MEDS: ATORVASTATIN 80 MG TAB PO SCH (08:51)
[2022-10-16] MEDS: CLOPIDOGREL 75 MG TABLET PO SCH (08:51)
[2022-10-16] MEDS: ASPIRIN EC 81 MG TAB PO SCH (08:51)
[2022-10-16] MEDS: SPIRONOLACTONE 25 MG TABLET PO SCH (08:51)
[2022-10-16] MEDS: carvediloL 3.125 MG TAB PO SCH (08:52)
[2022-10-16] MEDS: acetaZOLAMIDE 250 MG TAB PO SCH ×2 (08:52→16:12)
--- NOTE | 2022-10-16 19:42 | PN ---
Date of Progress Note: 10/16/2022 Subjective: Seen by bedside. He is doing clinically well. Continues to diurese very well. Review of Systems: No chest pain. Has shortness of breath. No lower extremity edema. No orthopnea. No nausea, vomiti ng, diarrhea. No abdominal pain. No dysuria, polyuria, or urgency. No skin rash, headache. All ot her systems reviewed and they are negative. Physical Examination: Vital Signs: Reviewed. Temperature is 97.6, pulse 60, breathing at 18, blood pressure is 113/53, sa turating 99%. General: Pleasant elderly male, in no apparent distress. Head and Neck: Pupils are equal, reactive to light. Intact eye movements. No JVD. No cervical lym phadenopathy. Neck is supple. Thyroid is not enlarged. Lungs: Clear to auscultation bilaterally. No rhonchi, rales, or crackles. No accessory muscle use. Heart: Irregular. No extra sounds. Abdomen: Soft, nontender. Bowel sounds positive. No organomegaly. No masses or hernia. No rigidi ty or rebound. Extremities: There is no clubbing, no cyanosis, 2+ pitting edema with improvement compared to yester day. Neurologic: Alert, awake, oriented x3. No acute focal deficits appreciated. Investigations: BUN 31, creatinine 1.45. Assessment And Recommendation: 1.Acute on chronic diastolic heart failure exacerbation. His ejection fraction on recent echo was n ormal. Continue IV Lasix and metolazone as prescribed. Monitor BUN, creatinine, electrolytes. Stri ct low-salt diet, and daily in and out measurements. 2.Coronary artery disease. There is no chest pain. Continue current management with aspirin and Plavix. 3.Dyslipidemia. Continue statin. SR/MODL Voice ID: [id number] Report ID: [id number]
--- NOTE | 2022-10-16 21:07 | P.PN ---
Date of Service: 10/16/22 Vital Signs Temp Pulse Resp BP Pulse Ox 98.1 F 60 20 115/50 L 95 10/16/22 20:00 10/16/22 20:00 10/16/22 20:00 10/16/22 20:00 10/16/22 20:00 Medications Acetaminophen (Acetaminophen 500 Mg Tab) 500 mg PO Q4HP PRN PRN Reason: Pain scale 2-4 (Mild) Acetazolamide (Acetazolamide 250 Mg Tab) 250 mg PO BIDL [facility] Last Admin: 10/16/22 16:12 Dose: 250 mg Albuterol Sulfate (Albuterol 2.5 Mg/3 Ml Neb Raya) 2.5 mg NEB [id number] PRN PRN Reason: SHORTNESS OF BREATH Amiodarone HCl (Amiodarone Hcl 200 Mg Tab) 200 mg PO BID [facility] Last Admin: 10/16/22 08:50 Dose: 200 mg Aspirin (Aspirin Ec 81 Mg Tab) 81 mg PO DAILY [facility] Last Admin: 10/16/22 08:51 Dose: 81 mg Atorvastatin Calcium (Atorvastatin 80 Mg Tab) 80 mg PO DAILY [facility] Last Admin: 10/16/22 08:51 Dose: 80 mg Clopidogrel Bisulfate (Clopidogrel 75 Mg Tablet) 75 mg PO DAILY [facility] Last Admin: 10/16/22 08:51 Dose: 75 mg Enoxaparin Sodium (Enoxaparin 40 Mg/0.4 Ml) 40 mg SQ DAILY [facility] Last Admin: 10/16/22 08:51 Dose: 40 mg Fluticasone Propionate (Fluticasone 50mcg Nasal [place]) 1 sprays YUE PRN PRN PRN Reason: NASAL CONGESTION Last Admin: 10/12/22 20:48 Dose: 1 spray Furosemide (Furosemide 40 Mg/4 Ml Vial) 80 mg IV Q6H [facility] Last Admin: 10/16/22 16:12 Dose: 80 mg Glucagon (Glucagon 1 Mg/Vial) 1 mg IM 1X PRN; Protocol PRN Reason: HYPOGLYCEMIA Insulin Human NPH (Nph (Human) 100 Units/Ml Insulin) 10 units SQ BIDWM [facility] Last Admin: 10/16/22 16:13 Dose: 10 units Insulin Human Regular (Insulin -Regular Human 50 Unit/0.5 Ml Ml) 0 unit SQ ACHS [facility]; Protocol Last Admin: 10/16/22 16:13 Dose: 3 unit Ondansetron HCl (Ondansetron 4 Mg/2 Ml Vial) 4 mg IV Q6HP PRN PRN Reason: NAUSEA / VOMITING Sodium Chloride (Flush Normal Saline 10 Ml) 10 ml IV BID [facility] Last Admin: 10/16/22 08:53 Dose: 10 ml Spironolactone (Spironolactone 25 Mg Tablet) 25 mg PO DAILY [facility] Last Admin: 10/16/22 08:51 Dose: 25 mg Assessment/ Plan: Nephrology No dyspnea No chest pain Improving edema Fatigue and weakness No acute events overnight Vitals, medications, blood work and imaging reviewed in the chart. General: In no apparent distress, Oriented x3, Cooperative HEENT: Atraumatic Neck: Supple Respiratory: Clear to auscultation bilaterally Cardiovascular: Regular rate/rhythm, Edema Gastrointestinal: Soft and benign, Non-distended Musculoskeletal: No clubbing, No contractures Integumentary: No rashes, No cyanosis Neurological: Normal speech Blood work reviewed in the chart. Imagings Data: EXAM DESCRIPTION: [facility] Single View10/12/2022 3:27 pm CLINICAL HISTORY: Shortness of breath COMPARISON: October 11, 2022 FINDINGS: The lungs appear clear of acute infiltrate. The heart is mildly enlarged. Pacemaker leads in place IMPRESSION: Resolution of pulmonary edema Conclusions/Impression: Stage I LEELA likely CRS CKD II with proteinuria -No NSAIDs Hypervolemic Hyponatremia -Continue Lasix -Fluid restriction 1200ml per day Hyperkalemia -Continue Lasix -Holding parameter for spironolactone Metabolic Alkalosis -Change Diamox 250mg q24h HTN with CKD/ CKD complicated by hypotension -Discontinue Coreg Systolic CHF, A/C LVEF 43% -Low sodium diet -Change Lasix IV BIDL -Continue Spironolactone DM II with CKD -RISS -Continue NPH insulin BID Case reviewed with Dr. Taveras
[2022-10-17 05:44] LABS: Hematocrit 42.5 % (39.6-49.0); MCV 93.5 fL (80-100); MPV 9.2 fL (7.6-11.3); RBC Red Blood Cell Count 4.55 M/uL (4.33-5.43)
[2022-10-17 06:01] LABS: Albumin 2.9 g/dL (3.4-5.0); Bilirubin Total 0.5 mg/dL (0.2-1.0); Magnesium 2.6 mg/dL (1.6-2.4); Protein, Total 7.1 g/dL (6.4-8.2)
[2022-10-17] MEDS: AMIODARONE HCL 200 MG TAB PO SCH ×2 (08:34→20:13)
[2022-10-17] MEDS: ATORVASTATIN 80 MG TAB PO SCH (08:34)
[2022-10-17] MEDS: ENOXAPARIN 40 MG/0.4 ML SQ SCH (08:34)
[2022-10-17] MEDS: SPIRONOLACTONE 25 MG TABLET PO SCH (08:35)
[2022-10-17] MEDS: FUROSEMIDE 40 MG/4 ML VIAL IV SCH ×2 (08:35→17:21)
[2022-10-17] MEDS: CLOPIDOGREL 75 MG TABLET PO SCH (08:35)
[2022-10-17] MEDS: ASPIRIN EC 81 MG TAB PO SCH (09:00)
[2022-10-17] MEDS: INSULIN -REGULAR HUMAN 50 UNIT/0.5 ML ML SQ SCH ×4 (09:13→20:13)
[2022-10-17] MEDS: NPH (HUMAN) 100 UNITS/ML INSULIN SQ SCH ×2 (09:13→17:21)
[2022-10-17] MEDS: acetaZOLAMIDE 250 MG TAB PO SCH (13:05)
--- NOTE | 2022-10-17 13:49 | P.PN ---
Date of Service: 10/17/22 Vital Signs Temp Pulse Resp BP Pulse Ox 99.1 F 75 20 91/48 L 94 10/17/22 12:00 10/17/22 12:00 10/17/22 12:00 10/17/22 12:00 10/17/22 12:00 Medications Acetaminophen (Acetaminophen 500 Mg Tab) 500 mg PO Q4HP PRN PRN Reason: Pain scale 2-4 (Mild) Acetazolamide (Acetazolamide 250 Mg Tab) 250 mg PO Q24H ON LICENSE OF [facility] Last Admin: 10/17/22 13:05 Dose: 250 mg Albuterol Sulfate (Albuterol 2.5 Mg/3 Ml Neb Raya) 2.5 mg NEB [id number] PRN PRN Reason: SHORTNESS OF BREATH Amiodarone HCl (Amiodarone Hcl 200 Mg Tab) 200 mg PO BID [facility] Last Admin: 10/17/22 08:34 Dose: 200 mg Aspirin (Aspirin Ec 81 Mg Tab) 81 mg PO DAILY [facility] Last Admin: 10/17/22 09:00 Dose: 81 mg Atorvastatin Calcium (Atorvastatin 80 Mg Tab) 80 mg PO DAILY [facility] Last Admin: 10/17/22 08:34 Dose: 80 mg Clopidogrel Bisulfate (Clopidogrel 75 Mg Tablet) 75 mg PO DAILY [facility] Last Admin: 10/17/22 08:35 Dose: 75 mg Enoxaparin Sodium (Enoxaparin 40 Mg/0.4 Ml) 40 mg SQ DAILY [facility] Last Admin: 10/17/22 08:34 Dose: 40 mg Fluticasone Propionate (Fluticasone 50mcg Nasal [place]) 1 sprays YUE PRN PRN PRN Reason: NASAL CONGESTION Last Admin: 10/12/22 20:48 Dose: 1 spray Furosemide (Furosemide 40 Mg/4 Ml Vial) 80 mg IV BIDL ON LICENSE OF [facility] Last Admin: 10/17/22 08:35 Dose: 80 mg Glucagon (Glucagon 1 Mg/Vial) 1 mg IM 1X PRN; Protocol PRN Reason: HYPOGLYCEMIA Insulin Human NPH (Nph (Human) 100 Units/Ml Insulin) 10 units SQ BIDWM ON LICENSE OF [facility] Last Admin: 10/17/22 09:13 Dose: 10 units Insulin Human Regular (Insulin -Regular Human 50 Unit/0.5 Ml Ml) 0 unit SQ ACHS ON LICENSE OF [facility]; Protocol Last Admin: 10/17/22 13:00 Dose: 3 unit Ondansetron HCl (Ondansetron 4 Mg/2 Ml Vial) 4 mg IV Q6HP PRN PRN Reason: NAUSEA / VOMITING Sodium Chloride (Flush Normal Saline 10 Ml) 10 ml IV BID ON LICENSE OF [facility] Last Admin: 10/17/22 09:14 Dose: 10 ml Spironolactone (Spironolactone 25 Mg Tablet) 25 mg PO DAILY ON [facility] Last Admin: 10/17/22 08:35 Dose: 25 mg Assessment/ Plan: Nephrology No dyspnea No chest pain Improving edema Fatigue and weakness No acute events overnight Vitals, medications, blood work and imaging reviewed in the chart. General: In no apparent distress, Oriented x3, Cooperative HEENT: Atraumatic Neck: Supple Respiratory: Clear to auscultation bilaterally Cardiovascular: Regular rate/rhythm, Edema Gastrointestinal: Soft and benign, Non-distended Musculoskeletal: No clubbing, No contractures Integumentary: No rashes, No cyanosis Neurological: Normal speech Blood work reviewed in the chart. Imagings Data: EXAM DESCRIPTION: [facility] Single View10/12/2022 3:27 pm CLINICAL HISTORY: Shortness of breath COMPARISON: October 11, 2022 FINDINGS: The lungs appear clear of acute infiltrate. The heart is mildly enlarged. Pacemaker leads in place IMPRESSION: Resolution of pulmonary edema Conclusions/Impression: Stage I LEELA likely CRS CKD II with proteinuria -No NSAIDs Hypervolemic Hyponatremia -Continue Lasix -Fluid restriction 1200ml per day Hyperkalemia -Continue Lasix -Holding parameter for spironolactone Metabolic Alkalosis -Continue Diamox 250mg q24h HTN with CKD/ CKD complicated by hypotension -Start Midodrine BID Systolic CHF, A/C LVEF 43% -Low sodium diet -Continue Lasix IV BIDL -Continue Spironolactone DM II with CKD -RISS -Increase NPH insulin 12U BID Case reviewed with Dr. Taveras
--- NOTE | 2022-10-17 17:12 | P.PN ---
Date of Service: 10/17/22 Subjective: no acute events overnight diuresing well borderline low BPs now no new complaints/worsening of symptoms ROS: A complete review of systems was performed and is negative except as mentioned above Physical Exam: Gen: NAD, AOx3 HEENT: normal conjunctiva, sclera anicteric CV: regular rate & rhythm, 2+ b/l lower extremity edema to knees Pulm: diminished bilaterally, on 6L NC Abd: soft, non-tender, non-distended Neuro: normal speech, normal affect, moves all extremities vitals reviewed Problem List Acute on chronic diastolic congestive heart failure LEELA on CKD2 history of CAD/CHF with pacemaker/defibrillator in place Diabetes mellitus type 2insulin-dependent Hypertension Hyperlipidemia COPD/asbestosis on chronic home O2, 5 L Responding to higher lasix dose Nephrology consulted to assist with management. decrease lasix 80mg q8h, pt with borderline low BP 1/6 continue aldactone, diamox home bumetanide is on hold. UOP improved 1/3 after increase of lasix / addition of diamox Continue amiodarone. dc'd coreg due to blood pressure added midodrine Cardiology input appreciated. Troponin trended negative. Monitor and optimize electrolytes. LEELA secondary to cardiorenal syndrome slight increase in Cr but minimal; with increased lasix dose Dispo: home, ~2-3 days Time Spent Managing Pts Care (In Minutes): 25
[2022-10-17] MEDS: MIDODRINE HCL 5 MG TABLET PO SCH (17:20)
--- NOTE | 2022-10-17 21:46 | PN ---
Date of Progress Note: 10/17/2022 Subjective: Seen by bedside. He continues to improve. Still has shortness of breath with exertion and lower extremity edema, as well as orthopnea. No nausea, vomiting, diarrhea. No dysuria, polyuri a, or urinary urgency. Review of Systems: All other systems reviewed and they were negative. Physical Examination: Vital Signs: Temperature is 97.6, pulse 65, breathing at 18, blood pressure is 94/53, saturating 93% on 2 L. General: Pleasant, elderly male, in no apparent distress. Head and Neck: Pupils are equal, reactive to light. Intact eye movements. No JVD elevation. No ce rvical lymphadenopathy. Neck: Supple. Thyroid is not enlarged. Lungs: Clear to auscultation bilaterally. No rhonchi, rales, or crackles. Heart: Regular rate and rhythm with S3 gallop. Abdomen: Soft, nontender. Bowel sounds positive. No organomegaly. No masses or hernia. No rigidi ty or rebound. Extremities: Edema 1 to 2+, significant improvement compared to yesterday. Neurologic: Alert, awake, oriented x3. No acute focal deficits associated. Lymph Nodes: No cervical or axillary lymphadenopathy. Investigations: BUN is 28, creatinine 1.34, potassium is 4. Hemoglobin is 13.6 and white blood cell count is 8.8. Assessment And Recommendation: 1.Acute on diastolic heart failure exacerbation. His EF on recent echo was normal. Continue aggres sive diuretics, strict low-salt diet, and daily body weight. 2.Congestive heart failure management education to be implemented before discharge specially on rest ricted low-sodium diet and fluid management. 3.Coronary artery disease. He does not have any chest pain. Troponins have been negative. He is s tatus post percutaneous coronary interventions of the right coronary artery and the left anterior griffin cending in the recent past. Continue aspirin and Plavix. SR/MODL Voice ID: [id number] Report ID: [id number]
--- NOTE | 2022-10-18 06:33 | P.PN ---
Date of Service: 10/18/22 Subjective: improving edema improving oxygen weaned to 5LNC still dyspneic with movement ROS: A complete review of systems was performed and is negative except as mentioned above Physical Exam: Gen: NAD, AOx3 HEENT: normal conjunctiva, sclera anicteric CV: regular rate & rhythm, 2+ b/l lower extremity edema to mid-calf Pulm: diminished bilaterally, on 5L NC Abd: soft, non-tender, non-distended Neuro: normal speech, normal affect, moves all extremities vitals reviewed Problem List Acute on chronic diastolic congestive heart failure LEELA on CKD2 history of CAD/CHF with pacemaker/defibrillator in place Diabetes mellitus type 2insulin-dependent Hypertension Hyperlipidemia 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 decrease lasix 80mg q8h, pt with borderline low BP 1/6 continue aldactone, diamox home bumetanide is on hold. UOP improved 1/3 after increase of lasix / addition of diamox likely increase home bumex to 4mg BID on discharge, continue aldactone, no diamox on dc Continue amiodarone. dc'd coreg due to blood pressure added midodrine Cardiology input appreciated. Troponin trended negative. Monitor and optimize electrolytes. LEELA secondary to cardiorenal syndrome improved/stable Dispo: home, likely tomorrow Time Spent Managing Pts Care (In Minutes): 25
[2022-10-18 06:38] LABS: Magnesium 2.5 mg/dL (1.6-2.4); Phosphorus 2.1 mg/dL (2.5-4.9); Potassium 4.3 mmol/L (3.5-5.1)
[2022-10-18] MEDS: SPIRONOLACTONE 25 MG TABLET PO SCH (09:18)
[2022-10-18] MEDS: POTASS/SODIUM PHOSPHATE 1 PKT POWD.PACK PO SCH ×3 (09:18→11:57)
[2022-10-18] MEDS: CLOPIDOGREL 75 MG TABLET PO SCH (09:19)
[2022-10-18] MEDS: ENOXAPARIN 40 MG/0.4 ML SQ SCH (09:19)
[2022-10-18] MEDS: ASPIRIN EC 81 MG TAB PO SCH (09:19)
[2022-10-18] MEDS: AMIODARONE HCL 200 MG TAB PO SCH ×2 (09:19→21:11)
[2022-10-18] MEDS: FUROSEMIDE 40 MG/4 ML VIAL IV SCH (09:19)
[2022-10-18] MEDS: NPH (HUMAN) 100 UNITS/ML INSULIN SQ SCH ×2 (09:20→17:08)
[2022-10-18] MEDS: MIDODRINE HCL 5 MG TABLET PO SCH ×2 (09:20→17:07)
[2022-10-18] MEDS: ATORVASTATIN 80 MG TAB PO SCH (09:20)
[2022-10-18] MEDS: INSULIN -REGULAR HUMAN 50 UNIT/0.5 ML ML SQ SCH ×4 (09:20→21:11)
[2022-10-18] MEDS: acetaZOLAMIDE 250 MG TAB PO SCH (11:57)
--- NOTE | 2022-10-18 20:37 | PN ---
Date of Progress Note: 10/18/2022 Subjective: Seen by bedside, doing much better. Review of Systems: Has no chest pain, shortness of breath, orthopnea, or cough. No nausea, vomiting, or diarrhea. No d ysuria, polyuria, or urinary urgency. Has lower extremity edema with improvement. All other systems reviewed were negative. Physical Examination: Vital Signs: Temperature is 97.0, pulse 59, breathing at 18, blood pressure 113/63, saturating 98%. General: Pleasant elderly male, in no apparent distress. Head and Neck: Pupils are equal, reactive to light. Intact eye movements. No JVD. No cervical lym phadenopathy. Neck: Supple. Thyroid is not enlarged. Lungs: Clear to auscultation bilaterally. No rhonchi, wheezing, or crackles. No accessory muscle u se. Heart: Regular rate and rhythm. No extra sounds. Abdomen: Soft, nontender. Bowel sounds positive. No organomegaly. No masses or hernia. No rigidi ty or rebound. Extremities: Trace edema bilaterally. No clubbing, cyanosis. Intact pulses. Skin: No rashes. Neuro: Alert, awake, oriented x3. No acute focal deficits appreciated. Investigations: BUN 30, creatinine 1.48. Hemoglobin 13.6, white blood cell count 8.8. Assessment/recommendation: 1.Acute on chronic diastolic heart failure exacerbation. Is doing clinically better. Recommend to switch him to oral Lasix at 80 mg twice a day. 2.Monitor BUN, creatinine, and electrolytes. Plan the patient for possible discharge tomorrow. Str ict salt diet is recommended. 3.Coronary artery disease. No chest pain. Continue current management. SR/MODL Voice ID: [id number] Report ID: [id number]
[2022-10-19 06:23] LABS: Magnesium 2.4 mg/dL (1.6-2.4); Phosphorus 2.7 mg/dL (2.5-4.9); Potassium 4.3 mmol/L (3.5-5.1)
[2022-10-19] MEDS: INSULIN -REGULAR HUMAN 50 UNIT/0.5 ML ML SQ SCH (07:30)
[2022-10-19 08:32] VITALS: BP 133/57; TEMP 98.7
[2022-10-19] MEDS: NPH (HUMAN) 100 UNITS/ML INSULIN SQ SCH (08:34)
[2022-10-19] MEDS: AMIODARONE HCL 200 MG TAB PO SCH (08:35)
[2022-10-19] MEDS: ENOXAPARIN 40 MG/0.4 ML SQ SCH (08:35)
[2022-10-19] MEDS: ATORVASTATIN 80 MG TAB PO SCH (08:35)
[2022-10-19] MEDS: ASPIRIN EC 81 MG TAB PO SCH (08:35)
[2022-10-19] MEDS: SPIRONOLACTONE 25 MG TABLET PO SCH (08:36)
[2022-10-19] MEDS: CLOPIDOGREL 75 MG TABLET PO SCH (08:36)
[2022-10-19 09:03] VITALS: O2SAT 95
--- NOTE | 2022-10-26 15:27 | P.DS ---
Admission Date: 10/11/22 Discharge Date: 10/19/22 Disposition: ROUTINE DISCHARGE Reason for Admission: CHF Exacerbation Consultations: Cardiology - Dr. Antonio Nephrology - Dr. De Santiago Brief History of Present Illness: 72-year-old male with history of systolic CHF, IDDM, hypertension, CAD, COPD home O2 dependent, and pacemaker defibrillator who presented to the ED with complaints of chest pain, shortness of breath, worsening lower extremity edema. He was noted to be saturating 70% on RA upon arrival. 4+ pitting edema up to the thighs bilaterally. labs are significant for CO2 of 37, creatinine 1.52, BNP 1056. chest x-ray was unremarkable. He was given 40 mg IV lasix in ED with minimal improvement in edema. He was also given a breathing treatment placed on BiPAP. He states his breathing has improved. will admit for further evaluation and management of CHF exacerbation. 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 Found to be in acute on chronic congestive heart failure exacerbation with an associated acute kidney injury, which resolved. He required several days IV diuresis with Lasix in addition to his home dose of spironolactone. He did receive several days of Diamox temporarily as well. He was noted to have some borderline blood pressures, for which is carvedilol was discontinued. He is to continue to hold his carvedilol dose her next few days. Will likely be restarted when he follows up with his physicians. He was seen by both cardiology and nephrology as well. On discharge, he was prescribed Bumex 4 mg twice daily, to take instead of his Lasix Hold carvedilol until follow-up with his county or city auditor and/or jewelry consultant Discussed monitoring with daily weights and taking extra dose of diuretic if nonlabored, as well as calling his physicians at that time. With the goal of preventing further worsening earlier on. Follow-up: PCP within 3 to 5 days Nephrology in 1 week Cardiology in 1-2 weeks Vital Signs/Physical Exam: Temp Pulse Resp BP Pulse Ox 98.7 F 61 18 133/57 L 95 10/19/22 08:00 10/19/22 08:36 10/19/22 08:00 10/19/22 08:36 10/19/22 08:00 Physical Exam: Gen: NAD, AOx3 HEENT: normal conjunctiva, sclera anicteric CV: regular rate & rhythm, 1+ b/l lower extremity edema to mid-calf Pulm: diminished bilaterally, on 4L NC Abd: soft, non-tender, non-distended Neuro: normal speech, normal affect, moves all extremities Laboratory Data at Discharge: WBC 8.80 K/uL (4.3-10.9) 10/17/22 05:19 Hgb 13.6 g/dL (13.6-17.9) 10/17/22 05:19 Hct 42.5 % (39.6-49.0) 10/17/22 05:19 Plt Count 248 K/uL (152-406) 10/17/22 05:19 PT 12.6 SECONDS (9.5-12.5) H 10/11/22 04:15 INR 1.15 10/11/22 04:15 Sodium 133 mmol/L (136-145) L 10/19/22 05:46 Potassium 4.3 mmol/L (3.5-5.1) 10/19/22 05:46 BUN 26 mg/dL (7-18) H 10/19/22 05:46 Creatinine 1.25 mg/dL (0.70-1.30) 10/19/22 05:46 Glucose 113 mg/dL (74-106) H 10/19/22 05:46 Phosphorus 2.7 mg/dL (2.5-4.9) 10/19/22 05:46 Magnesium 2.4 mg/dL (1.6-2.4) 10/19/22 05:46 Total Bilirubin 0.5 mg/dL (0.2-1.0) 10/17/22 05:19 AST 12 U/L (15-37) L 10/17/22 05:19 ALT 15 U/L (16-61) L 10/17/22 05:19 Alkaline Phosphatase 137 U/L (45-117) H 10/17/22 05:19 Triglycerides 58 mg/dL (<150) 10/12/22 06:05 Cholesterol 104 mg/dL (<200) 10/12/22 06:05 HDL Cholesterol 42 mg/dL (40-60) 10/12/22 06:05 Cholesterol/HDL Ratio 2.48 10/12/22 06:05 Lipase 120 U/L (73-393) 10/11/22 04:15 Home Medications: Aspirin [Aspirin EC 81 MG] 81 mg PO DAILY #30 tablet. 03/27/22 Atorvastatin Calcium [Lipitor] 80 mg PO DAILY #30 tab 03/27/22 Clopidogrel Bisulfate [Plavix*] 75 mg PO DAILY #30 tablet 03/27/22 Insulin NPH Human [Novolin N (Humulin N)*] 10 units SQ BIDWM #10 ml 03/27/22 Metformin ER [Glucophage ER*] 500 mg PO BID #60 tab.sa 03/27/22 Spironolactone [Aldactone*] 25 mg PO DAILY 30 Days #30 tab 04/03/22 Fluticasone [Flonase 50MCG Nasal [place]*] 1 sprays YUE PRN PRN 07/23/22 Potassium Oral Tab [Klor-Con 10 mEq Tab*] 1 tab PO DAILY 07/23/22 glipiZIDE [Glipizide] 10 mg PO BID 07/23/22 Amiodarone HCl [Cordarone*] 200 mg PO BID 30 Days #60 tab 07/24/22 Bumetanide [Bumex] 4 mg PO BID 30 Days #240 tab 10/19/22 Codeine/APAP [Tylenol W/Codeine #3 tab] 1 tab PO Q8HP PRN #10 tab 10/19/22 Insulin NPH Human [place]ophane [Novolin N Flexpen] 10 unit SQ BIDWM 30 Days #6 ml 10/19/22 New Medications: Codeine/APAP [Tylenol W/Codeine #3 tab] 1 tab PO Q8HP PRN #10 tab PRN Reason: Pain Bumetanide [Bumex] 4 mg PO BID 30 Days #240 tab Insulin NPH Human Isophane [Novolin N Flexpen] 10 unit SQ BIDWM 30 Days #6 ml Physician Discharge Instructions: Patient presented with shortness of breath, hypoxia, and significant lower extremity swelling. Found to be in acute on chronic congestive heart failure exacerbation with an associated acute kidney injury, which resolved. He required several days IV diuresis with Lasix in addition to his home dose of spironolactone. He did receive several days of Diamox temporarily as well. He was noted to have some borderline blood pressures, for which is carvedilol was discontinued. He is to continue to hold his carvedilol dose her next few days. Will likely be restarted when he follows up with his physicians. He was seen by both cardiology and nephrology as well. On discharge, he was prescribed Bumex 4 mg twice daily, to take instead of his Lasix Hold carvedilol until follow-up with his county or city auditor and/or jewelry consultant Discussed monitoring with daily weights and taking extra dose of diuretic if nonlabored, as well as calling his physicians at that time. With the goal of preventing further worsening earlier on. Follow-up: PCP within 3 to 5 days Nephrology in 1 week Cardiology in 1-2 weeks Diet: Low sodium Followup: NONE,NONE [Primary Care Provider] - 1 Week (Please call to schedule an appointment.) Time spent managing pt's care (in minutes): 45
== END 2022-10-19 09:50 | disposition home or self-care (01) | DRG 291 ==
LOC: ER 02:54 → ERHOLD 04:15 → 4TH 13:07 → ERHOLD 13:07 → 2ND 13:31
PROVIDERS: ADMIT Internal Medicine; ATTEND Hospitalist
DX: I13.0 Hypertensive heart and chronic kidney disease with heart failure and stage 1 through stage 4 chronic kidney disease, or unspecified chronic kidney disease (principal); I50.33 Acute on chronic diastolic (congestive) heart failure; J96.01 Acute respiratory failure with hypoxia; E87.1 Hypo-osmolality and hyponatremia; E87.3 Alkalosis; N17.9 Acute kidney failure, unspecified; N18.2 Chronic kidney disease, stage 2 (mild); E11.22 Type 2 diabetes mellitus with diabetic chronic kidney disease; E11.649 Type 2 diabetes mellitus with hypoglycemia without coma; E11.65 Type 2 diabetes mellitus with hyperglycemia; J44.9 Chronic obstructive pulmonary disease, unspecified; E87.5 Hyperkalemia; I89.0 Lymphedema, not elsewhere classified; E66.9 Obesity, unspecified; E78.2 Mixed hyperlipidemia; I25.10 Atherosclerotic heart disease of native coronary artery without angina pectoris; F17.210 Nicotine dependence, cigarettes, uncomplicated; I25.2 Old myocardial infarction; Z60.2 Problems related to living alone; Z79.4 Long term (current) use of insulin; Z95.5 Presence of coronary angioplasty implant and graft; Z99.81 Dependence on supplemental oxygen; Z68.35 Body mass index [BMI] 35.0-35.9, adult; Z79.82 Long term (current) use of aspirin; Z79.02 Long term (current) use of antithrombotics/antiplatelets; Z79.84 Long term (current) use of oral hypoglycemic drugs; Z79.899 Other long term (current) drug therapy; Z95.810 Presence of automatic (implantable) cardiac defibrillator; Z91.119 Patient's noncompliance with dietary regimen due to unspecified reason; Z91.199 Patient's noncompliance with other medical treatment and regimen due to unspecified reason; Z20.822 Contact with and (suspected) exposure to COVID-19
CPT/HCPCS: 0240U; 36415; 71045; 80048; 80053; 80061; 80069; 80076; 81003; 82947; 83690; 83735; 83880; 84100; 84443; 84484; 85025; 85027; 85610; 93005; 93306; 93970; 94760; 96374; 96375; 97110; 97116; 97140; 97161; 97530; 99285; J1650; J1815; J1940; J2405; J2930; J3010; J3475; J7614; J7644

== ENCOUNTER 2022-12-10 16:34 | Observation (INO) | payer OTHER ==
--- OUTSIDE RECORDS SUMMARY | 2022-12-10 16:38 | XMS REPORT | Continuity of Care Document ---
:1950 Author Organization [facility] t Address [address] [place] [address] [address] [place] [address] Care Team Providers Name Role Phone Marisela [...] U [facility] 3-15 Clear s 00:00: [address] No Known DA Active U 0 [facility] 1-20 Clear s 00:00: [address] Medications This patient has no known medications. Procedures Procedure Date / Time Performed Performing Clinician Chintan velasco [id number] 2021-10-31 00:00:00 [facility] [id number] 2021-10-31 00:00:00 [facility] [id number] 2021-10-30 00:00:00 [facility] Encounters Start End Encounter Admission Attending Care Care Encounter Source Date/Time Date/Time Type Type Clinicians Facility Department ID 2021-12-24 2021-12-24 Inpatient MARIAM Ann OUTD [id number] [facility] 05:20:00 05:20:00 Jorge 67 [facility] 2021-11-26 2021-11-26 Inpatient MARIAM Ann OUTD [id number] [facility] 05:19:00 05:19:00 Jorge 76 [facility] 2021-10-31 2021-11-01 Inpatient EM KENIA Layton TELE [id number] [facility] 16:03:00 10:24:[address] [place] [address] Results Test Description Test Time Test Comments [...] CA) 8.7 mg/dL 8.0-10.5 N CBC W/AUTO [id number] 16:03:00 Test Item Value Reference Range Interpretation [...] REQUIRED (test code NO = MDIFF) GLUCOSE [id number] 13:59:00 Test Item Value Reference Range Interpretation Comments GLUCOSE BEDSIDE (test 127 MG/DL 70-110 H Perfor med by certified code = GLUBED) 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 operator at [facility] [id number] 13:39:00 Test Item Value Reference Range Interpretation Comments ACT-ISTAT (test code 279 SEC 74-137 H Perform ed by certified = ACTI) washroom operator at [facility] [id number] 13:29:00 Test Item Value Reference Range Interpretation Comments ACT-ISTAT (test code 243 SEC 74-137 H Perform ed by certified = ACTI) washroom operator at [facility] [id number] 13:07:00 Test Item Value Reference Range Interpretation Comments ACT-ISTAT (test code 327 SEC 74-137 H Perform ed by certified = ACTI) washroom operator at [facility] GLUCOSE [id number] 10:34:00 Test Item Value Reference Range Interpretation Comments GLUCOSE BEDSIDE (test 154 MG/DL 70-110 H [facility] by certified code = GLUBED) washroom operator at [facility] BASIC METABOLIC [id number] 12:01:00 Test Item Value Reference Range Interpretation [...] = 9.1 mg/dL 8.0-10.5 N CA) PROTHROMBIN [id number] 11:36:00 Test Item Value Reference Range Interpretation [...] (to prevent recurrent infar ct). CBC W/AUTO [id number] 11:35:00 Test Item Value Reference Range Interpretation [...] (test code NO = MDIFF) BASIC METABOLIC [id number] 11:41:00 Test Item Value Reference Range Interpretation [...] 8.2 mg/dL 8.0-10.5 N CA) CBC W/AUTO [id number] 11:19:00 Test Item Value Reference Range Interpretation [...] 0.00 x10 3/uL 0.0-0.1 N NRBC#) GLUCOSE [id number] 09:23:00 Test Item Value Reference Range Interpretation Comments GLUCOSE BEDSIDE (test 108 MG/DL 70-110 N Perfor med by certified code = GLUBED) washroom operator at [facility] [id number] 08:44:00 Test Item Value Reference Range Interpretation Comments ACT-ISTAT (test code 273 SEC 74-137 H Perform ed by certified = ACTI) washroom operator at [facility] BASIC METABOLIC [id number] 08:38:00 Test Item Value Reference Range Interpretation [...] code = 8.3 mg/dL 8.0-10.5 N CA) [id number] 08:22:00 Test Item Value Reference Range Interpretation Comments ACT-ISTAT (test code 303 SEC 74-137 H Perform ed by certified = ACTI) washroom operator at [facility] GLUCOSE [id number] 06:14:00 Test Item Value Reference Range Interpretation Comments GLUCOSE BEDSIDE (test 115 MG/DL 70-110 H Perfor med by certified code = GLUBED) washroom operator at [facility] BASIC METABOLIC [id number] 11:09:00 Test Item Value Reference Range Interpretation [...] = 8.1 mg/dL 8.0-10.5 N CA) PROTHROMBIN [id number] 10:36:00 Test Item Value Reference Range Interpretation Comments PROTHROMBIN TIME 15.2 SECONDS 9.3-12.9 H PATIENT (test code = PTP) INTERNATIONAL NORMAL 1.4 0.8-1.2 H TARGE T INR BY RATIO (test code = INDICATIO [...] (to prevent recurrent infar ct). CBC W/AUTO [id number] 10:21:00 Test Item Value Reference Range Interpretation [...] = 0.00 x10 3/uL 0.0-0.1 N NRBC#) [id number] 14:18:00 Test Item Value Reference Range Interpretation Comments GLUBED (test code = GLUBED) 167 mg/dL 70-110 H [id number] 14:17:00 Test Item Value Reference Range Interpretation Comments GLUBED (test code = GLUBED) 117 mg/dL 70-110 H [id number] 07:34:00 Test Item Value Reference Range Interpretation Comments GLUBED (test code = GLUBED) 215 mg/dL 70-110 H CBC W/AUTO [id number] 06:26:00 Test Item Value Reference Range Interpretation [...] X10 3uL 0.00-0.01 N NRBC#) BASIC METABOLIC [id number] 06:17:00 Test Item Value Reference Range Interpretation [...] code = CA) 8.6 mg/dl 8.0-10.5 N [id number] 07:26:00 Test Item Value Reference Range Interpretation Comments TROPONIN-I (test 0.63 NG/ML 0.00-0.06 HH REFERENCE R XAVIER TROPONIN code = TROPI) I HEALTHY PERNELL VIDUALS: <0.06 ng/mL R/O ISCHEMIA: 0.07 - 0.60 ng/mL CUT-OFF R XAVIER FOR AMI: 0.60 - 1.5 ng/mL [id number] 06:10:00 Test Item Value Reference Range Interpretation Comments GLUBED (test code = GLUBED) 115 mg/dL 70-110 H [id number] 04:17:00 Test Item Value Reference Range Interpretation Comments TROPONIN-I (test 0.59 NG/ML 0.00-0.06 HH REFERENCE R XAVIER TROPONIN code = TROPI) I HEALTHY PERNELL VIDUALS: <0.06 ng/mL R/O ISCHEMIA: 0.07 - 0.60 ng/mL CUT-OFF R XAVIER FOR AMI: 0.60 - 1.5 ng/mL [id number] 22:52:00 Test Item Value Reference Range Interpretation Comments TROPONIN-I (test 0.43 NG/ML 0.00-0.06 H REFERENCE R XAVIER TROPONIN code = TROPI) I HEALTHY PERNELL VIDUALS: <0.06 ng/mL R/O ISCHEMIA: 0.07 - 0.60 ng/mL CUT-OFF R XAVIER FOR AMI: 0.60 - 1.5 ng/mL B-TYPE NATRIURETIC [id number] 17:55:00 Test Item Value Reference Range Interpretation Comments B-TYPE NATRIURETIC PEPTIDE (test 670 PG/ML 5-100 H code = BNP) [id number] 17:55:00 Test Item Value Reference Range Interpretation Comments TROPONIN-I (test 0.04 NG/ML 0.00-0.06 N REFERENCE R XAVIER TROPONIN code = TROPI) I HEALTHY PERNELL VIDUALS: <0.06 ng/mL R/O ISCHEMIA: 0.07 - 0.60 ng/mL CUT-OFF R XAVIER FOR AMI: 0.60 - 1.5 ng/mL BASIC METABOLIC [id number] 17:55:00 Test Item Value Reference Range Interpretation [...] code = CA) 8.5 mg/dl 8.0-10.5 N [id number] 17:52:00 Test Item Value Reference Range Interpretation Comments GLUBED (test code = GLUBED) 117 mg/dL 70-110 H COVID 19 Asymptomatic IH [id number] 17:49:00 Test Item Value Reference Range Interpretation Comments COVID 19 NEGATIVE NEGATIVE Negative result s should be Asymptomatic IH AG treated a s presumptive and (test code = ifinconsistent with COVNONPUIAG) clinical signs and symptoms, or ne cessaryfor patient managem ent, should be tested with an alternativemole cular assay. Negative results do not preclude FVTQ-ChQ-[id number] tion and should not be u sed as the sole basis forp atient management deci sions. Negative result s should beconsidered in the context of a pa tient's recent exposure s,history, presence of cli nical signs and symptoms consistentwith COVID-19. PROTHROMBIN [id number] 17:20:00 Test Item Value Reference Range Interpretation Comments PROTHROMBIN TIME 15.1 SECONDS 9.9-12.8 H PATIENT (test code = PTP) INTERNATIONAL NORMAL 1.3 0.89-1.14 H THE INR IS TO BE USED RATIO (test code = ONLY FOR MONITORING INR) ORAL ANTICOAGULANTTH ERAPY. THE FOLLOWING A RE SUGGESTED RANGE S FROM THEB[facility]ENTERAN COL LEGE OF CHEST PHYSICIANS:PERNELL [...] 3 .0 ATRIAL FIBRILAT ION 2.0 - 3.0BILEAFLET MECHANICAL VALV E IN AORTIC POSITION 2.0 - 3.0MECHANICAL PROSTHETIC VALV ES (HIGH RISK) 2.5 - 3.5PRESENCE OF LUPUS ANTICOAGULANT O R ANTIPHOSPHOLIPI D ANTIBODIES 2.5 - 3.5 Specimen comments: .CBC W/AUTO [id number] 17:09:00 Test Item Value Reference Range Interpretation [...] 0.00-0.01 N NRBC#) - XR CHEST 1 [id number] 16:43:00 [facility] 1950 Sex: M FAX: Shara Jackman MD [phone] [place]: [address]: PRE Name: ELLE MERRITT [facility] : 1950 Age/S: 71/M [address] Unit #: [id number] Loc: [place], [place]: [place] [id number] Acct: [id number] Dis Date: Status: PRE ER PHONE #: [phone] Exam Date: 10/30/20211641 FAX #: [phone] Reason: SOB EXAMS: CPT CODE: [id number] XR CHEST 1 V 37595 EXAMINATION: - XR CHEST 1 V. LOCATION: B2. HISTORY: SOB. COMPARISON: None. TECHNIQUE: Single AP view of the chest was obtained. FINDINGS: The heart is enlarged in size. Left AICD device is present. There is mild prominence of the c entral pulmonary vasculature. No acute osseous abnormality is identified. IMPRESSION: Cardiomegaly with mild central pulmonary congestion. [id number] Reported and signed by: Rupal Gunter M.D. CC: Shara Jackman MD Technologist: JJ THOMAS Trnmard Date/Time/By: 10/30/2021 (2120) : By: [email or web address] PAGE 1 Signed Report FAX: Shara Jackman MD [phone] [place]: St: PRE Name: ELLE MERRITT [facility] : 1950 Age/S: 71/M [address] Unit #: [id number] Loc: [place], [place]: [place] [address] Acct: [id number] Dis Date: Status: PRE ER PHONE #: [phone] Exam Date: 10/30/20211641 FAX #: [phone] Reason: SOB EXAMS: CPT CODE: [id number] XR CHEST 1 V 35190 (Continued) Orig Print D/T: S: 10/30/2021 (7286) PAGE 2 Signed Report
[2022-12-10 17:29] LABS: Absolute Lymphocytes (CBC) 1.2 K/uL (0.7-4.9); Lymphocytes % 13.4 % (15.3-44.8); MCV 96.1 fL (80-100); MPV 8.9 fL (7.6-11.3); RBC Red Blood Cell Count 4.26 M/uL (4.33-5.43)
[2022-12-10 17:31] LABS: Anisocytosis 1+; Blood Morphology Comment NOTED (NOT SEEN); Platelet Estimate ADEQ; White Blood Cell Scan OK (OK)
[2022-12-10 18:24] LABS: SARS-CoV-2 Antigen Rapid Res Negative (Negative)
--- NOTE | 2022-12-10 18:35 | RAD REPORT ---
EXAM DESCRIPTION: RADChest Single View12/10/2022 5:57 pm CLINICAL HISTORY: SOB COMPARISON: Chest Single View dated 10/12/2022; Chest Single View dated 10/11/2022; Chest Single View da lamar 07/22/2022; Chest Single View dated 04/08/2022 TECHNIQUE: Portable AP view of the chest. FINDINGS: New patchy right more than left perihilar airspace opacities. Stable prominent central vas cular markings and central interstitial prominence. No pneumothorax or effusion. The cardiomediastina l contours are unremarkable. IMPRESSION: New patchy right more than left perihilar airspace opacities. Findings may relate to pul monary edema or developing pneumonia.
[2022-12-10 20:30] LABS: Protime INR 1.01
[2022-12-10 20:47] LABS: Bilirubin Direct 0.1 mg/dL (0-0.2); Bilirubin Total 0.3 mg/dL (0.2-1.0); Magnesium 2.4 mg/dL (1.6-2.4); Potassium 4.7 mmol/L (3.5-5.1); Protein, Total 7.4 g/dL (6.4-8.2); Troponin High Sensitivity 22.6 pg/mL (<58.9)
[2022-12-10] MEDS ORDERED: FUROSEMIDE 40 MG/4 ML VIAL ONE (21:15)
--- NOTE | 2022-12-10 22:16 | EDPHYS ---
Physician Documentation [facility] Name: Willi Boudreaux Age: 72 yrs Sex: Male : 1950 Arrival Date: 12/10/2022 Time: 16:35 Bed 13 Private MD: Sherice Mariscal ED Physician Jacobo Taveras HPI: 12/10 17:04 This 72 yrs old Black Male presents to ER via Wheelchair with complaints of Leg pm1 Swelling, Chest Pain, Shortness Of Breath. 17:04 The patient has shortness of breath at rest, that occurred at home, and the patient has pm1 a history of COPD, CHF. Onset: The symptoms/episode began/occurred today, 3 hour(s) ago. The patient's shortness of breath is aggravated by nothing, is alleviated by defibrillation. Associated signs and symptoms: Pertinent positives: chest pain, Dizziness, Shortness of breath. Severity of symptoms: in the emergency department the symptoms have improved. The patient has not recently seen a physician, the patient's primary care provider is Dr. Sherice Santiago PCP. Channel Turner Marisela. 72-year-old male was sitting at home watching TV with complaints of dizziness, chest pain, and shortness of breath that lasted for less than one minute and then resulted in a shock from his defibrillator. Patient reports resolution of his symptoms of chest pain, dizziness, and shortness of breath. Patient also reports 3 days of swelling to bilateral legs. Historical: - Allergies: 16:52 No Known Allergies; aa5 - PMHx: 16:52 asbestosis; CHF; COPD; diabetes mellitus; home O2 via NC at 5L; Hypertensive disorder; aa5 Myocardial infarction; - PSHx: 16:52 lumbar laminectomy, cervicle spine fusion; pacemaker; aa5 - Immunization history:: Adult Immunizations unknown. - Social history:: Smoking status: Patient denies any tobacco usage or history of. ROS: 17:06 Constitutional: Negative for fever, chills, and weight loss. pm1 17:06 Abdomen/GI: Negative for abdominal pain, nausea, vomiting, diarrhea, and constipation, Back: Negative for injury and pain, MS/Extremity: Negative for injury and deformity, Skin: Negative for injury, rash, and discoloration, Neuro: Negative for headache, weakness, numbness, tingling, and seizure. 17:06 Cardiovascular: Positive for chest pain, edema. 17:06 Respiratory: Positive for cough, productive for 1 week, shortness of breath. 17:06 All other systems are negative. Exam: 17:06 Constitutional: This is a well developed, well nourished patient who is awake, alert, pm1 and in no acute distress. Head/Face: Normocephalic, atraumatic. 17:06 Back: No spinal tenderness. No costovertebral tenderness. Full range of motion. 17:06 Eyes: Exam is negative for acute changes. 17:06 ENT: Exam is negative for acute changes, Mouth: no acute changes, Lips: normal, moist, Oral mucosa: normal, pink and intact, moist. 17:06 Cardiovascular: Exam negative for acute changes, Rate: normal, Rhythm: regular, Pulses: no pulse deficits are appreciated, Heart sounds: normal, normal S1and S2, Edema: Bilateral pedal edema 3+. 17:06 Respiratory: the patient does not display signs of respiratory distress, Respirations: no acute changes, Breath sounds: decreased breath sounds, are located in both bases. 17:06 Abdomen/GI: Exam negative for acute changes, Palpation: abdomen is soft and non-tender, in all quadrants. 17:06 Skin: Appearance: abscess, not appreciated, cellulitis, is not appreciated, on the right leg and left leg. 17:06 Neuro: Exam negative for acute changes, Orientation: is normal, Mentation: is normal, Motor: is normal, moves all fours. Vital Signs: 16:52 BP 97 / 69; Pulse 58; Resp 26 S; Temp 98.1(TE); Pulse Ox 92% on 5 lpm NC; Weight 104.33 aa5 kg (R); Height 5 ft. 10 in. (177.80 cm) (R); 17:43 BP 104 / 55; Pulse 76; Resp 21; Pulse Ox 97% on R/A; ld1 18:44 BP 101 / 54; Pulse 71; Resp 22; Pulse Ox 96% on 2 lpm NC; ld1 19:44 BP 108 / 60; Pulse 72; Resp 20 S; Temp 98.9(O); Pulse Ox 98% on 5 lpm NC; Pain 0/10; lg3 21:16 BP 107 / 90; Pulse 74; Resp 22 S; Pulse Ox 96% on 5 lpm NC; lg3 16:52 Body Mass Index 33.00 (104.33 kg, 177.80 cm) aa5 MDM: 16:57 Patient medically screened. pm1 21:04 Data reviewed: vital signs. pm1 21:04 Data interpreted: Pulse oximetry: on 5L(s) per nasal canula, is 98 %. Interpretation: pm1 normal. 21:07 Counseling: I had a detailed discussion with the patient and/or guardian regarding: the pm1 historical points, exam findings, and any diagnostic results supporting the discharge/admit diagnosis, lab results, radiology results, the need for further work-up and treatment in the hospital. 21:07 ED course: Impression with chest xray is pulmonary edema versus pneumonia. Patient pm1 without fever, negative for abnormal WBC. 22:13 Management of patient was discussed with the following: Hospitalist: Beny Uribe NP. pm1 Observation admission to Dr Gonzáles. 12/10 17:03 Order name: Basic Metabolic Panel; Complete Time: 20:55 pm1 12/10 17:03 Order name: CBC with Diff; Complete Time: 17:58 pm1 12/10 17:03 Order name: LFT's; Complete Time: 20:55 pm1 12/10 17:03 Order name: Magnesium; Complete Time: 20:55 pm1 12/10 17:03 Order name: NT PRO-BNP; Complete Time: 20:55 pm1 12/10 17:03 Order name: PT-INR; Complete Time: 20:44 pm1 12/10 17:03 Order name: Troponin HS; Complete Time: 20:55 pm1 12/10 17:03 Order name: XRAY Chest (1 view); Complete Time: 19:14 pm1 12/10 17:03 Order name: EKG; Complete Time: 17:03 pm1 12/10 17:03 Order name: Cardiac monitoring; Complete Time: 17:39 pm1 12/10 17:03 Order name: EKG - Nurse/Tech; Complete Time: 17:44 pm1 12/10 17:03 Order name: IV Saline Lock; Complete Time: 17:39 pm1 12/10 17:03 Order name: Labs collected and sent; Complete Time: 17:39 pm1 12/10 17:03 Order name: O2 Per Protocol; Complete Time: 17:40 pm1 12/10 17:03 Order name: O2 Sat Monitoring; Complete Time: 17:40 pm1 12/10 17:09 Order name: SARS RAPID; Complete Time: 18:26 pm1 12/10 17:32 Order name: CBC Smear Scan; Complete Time: 17:58 EDMS 12/10 21:53 Order name: Procalcitonin la1 12/10 23:07 Order name: Procalcitonin; Complete Time: 23:43 EDMS EC:15 Rate is 78 beats/min. Rhythm is regular, Normal Sinus Rhythm. QRS [place] is Normal. pm1 Clinical impression: Electronic ventricular pacemaker. Administered Medications: 21:15 Drug: Lasix (furosemide) 40 mg Route: IVP; Site: right hand; lg3 23:05 Follow up: Response: No adverse reaction lg3 Disposition Summary: 12/10/22 22:16 Hospitalization Ordered Hospitalization Status: Observation pm1 Provider: Tudne Gonzáles pm1 Location: Telemetry/MedSurg (observation) pm1 Condition: Stable pm1 Problem: new pm1 Symptoms: have improved pm1 Bed/Room Type: Standard pm1 Room Assignment: 403(12/10/22 22:57) cg Diagnosis - Unspecified combined systolic (congestive) and diastolic (congestive) heart failure pm1 - Discharge of AICD pm1 Discharge Instructions: - Discharge Summary Sheet lg3 Forms: - Medication Reconciliation Form lg3 - SBAR form lg3 Signatures: Dispatcher [employer] EDBibi Kaba RN RN aa5 Karen Mays RN RN cg Christiano Guerrero, JODEE UTILIZATION MANAGEMENT NURSE pm1 Naz Thrasher RN RN lg3 Corrections: (The following items were deleted from the chart) 17:43 17:03 Misc. Order ordered. pm1 ld1 22:57 22:16 pm1 cg
--- NOTE | 2022-12-10 22:16 | ER ---
Nurse's Notes [facility] Name: Willi Boudreaux Age: 72 yrs Sex: Male : 1950 Arrival Date: 12/10/2022 Time: 16:35 Bed 13 Private MD: Sherice Mariscal Diagnosis: Unspecified combined systolic (congestive) and diastolic (congestive) heart failure;Discharge of AICD Presentation: 12/10 16:52 Chief complaint: Patient states: "I was just sitting watching TV and started feeling aa5 dizzy and short of breath and my defibrillator shocked me", pt reports incident occurred 3 hrs ago. 16:52 Acuity: DAI 2 aa5 16:52 Onset of symptoms was December 10, 2022. aa5 16:52 Coronavirus screen: shortness of breath. Ebola Screen: Patient denies travel to an [facility] Ebola-affected area in the 21 days before illness onset. Initial Sepsis Screen: Does the patient meet any 2 criteria? RR > 20 per min. Does the patient have a suspected source of infection? No. Patient's initial sepsis screen is negative. Risk Assessment: Do you want to hurt yourself or someone else? Patient reports no desire to harm self or others. 16:52 Method Of Arrival: Wheelchair aa5 Historical: - Allergies: 16:52 No Known Allergies; aa5 - PMHx: 16:52 asbestosis; CHF; COPD; diabetes mellitus; home O2 via NC at 5L; Hypertensive disorder; aa5 Myocardial infarction; - PSHx: 16:52 lumbar laminectomy, cervicle spine fusion; pacemaker; aa5 - Immunization history:: Adult Immunizations unknown. - Social history:: Smoking status: Patient denies any tobacco usage or history of. Screenin:43 [facility] ED Fall Risk Assessment (Adult) History of falling in the last 3 months, ld1 including since admission No falls in past 3 months (0 pts). Abuse screen: Denies threats or abuse. Denies injuries from another. Nutritional screening: No deficits noted. Tuberculosis screening: No symptoms or risk factors identified. Assessment: 17:43 General: Appears in no apparent distress. comfortable, Behavior is calm, cooperative, ld1 appropriate for age. Pain: Denies pain. Neuro: Level of Consciousness is awake, alert, obeys commands, Oriented to person, place, time, situation. Cardiovascular: Capillary refill < 3 seconds Patient's skin is warm and dry. Rhythm is sinus rhythm. Respiratory: Airway is patent Respiratory effort is even, unlabored. GI: Abdomen is round non-distended. : No signs and/or symptoms were reported regarding the genitourinary system. EENT: No signs and/or symptoms were reported regarding the EENT system. Derm: No signs and/or symptoms reported regarding the dermatologic system. Musculoskeletal: No signs and/or symptoms reported regarding the musculoskeletal system. 18:45 Reassessment: Patient appears in no apparent distress at this time. Patient and/or ld1 family updated on plan of care and expected duration. Pain level reassessed. Patient is alert, oriented x 3, equal unlabored respirations, skin warm/dry/pink. Patient denies pain at this time. 19:44 General: Appears in no apparent distress. comfortable, Behavior is calm, cooperative. lg3 Pain: Denies pain. Neuro: No deficits noted. Jean Agitation-Sedation Scale (RASS): 0 - Alert and Calm Level of Consciousness is awake, alert, obeys commands, Oriented to person, place, time, situation. Cardiovascular: No deficits noted. Denies chest pain, Capillary refill < 3 seconds Patient's skin is warm and dry. Rhythm is sinus rhythm. Respiratory: Airway is patent Respiratory effort is even, unlabored, Respiratory pattern is regular, symmetrical. GI: No deficits noted. No signs and/or symptoms were reported involving the gastrointestinal system. Abdomen is round non-distended. : No deficits noted. No signs and/or symptoms were reported regarding the genitourinary system. EENT: No deficits noted. No signs and/or symptoms were reported regarding the EENT system. Derm: Skin is intact, Skin is dry, Skin is normal. Musculoskeletal: Circulation, motion, and sensation intact. Range of motion: intact in all extremities, Swelling present in right leg and left leg. 21:16 Reassessment: Patient appears in no apparent distress at this time. No changes from lg3 previously documented assessment. Patient and/or family updated on plan of care and expected duration. Pain level reassessed. Patient is alert, oriented x 3, equal unlabored respirations, skin warm/dry/pink. Patient denies pain at this time. Vital Signs: 16:52 BP 97 / 69; Pulse 58; Resp 26 S; Temp 98.1(TE); Pulse Ox 92% on 5 lpm NC; Weight 104.33 aa5 kg (R); Height 5 ft. 10 in. (177.80 cm) (R); 17:43 BP 104 / 55; Pulse 76; Resp 21; Pulse Ox 97% on R/A; ld1 18:44 BP 101 / 54; Pulse 71; Resp 22; Pulse Ox 96% on 2 lpm NC; ld1 19:44 BP 108 / 60; Pulse 72; Resp 20 S; Temp 98.9(O); Pulse Ox 98% on 5 lpm NC; Pain 0/10; lg3 21:16 BP 107 / 90; Pulse 74; Resp 22 S; Pulse Ox 96% on 5 lpm NC; lg3 16:52 Body Mass Index 33.00 (104.33 kg, 177.80 cm) aa5 ED Course: 16:35 Patient arrived in ED. am2 16:36 Sherice Mariscal FNP-C is Private Physician. am2 16:52 Arm band placed on. aa5 16:56 [facility] pm1 16:56 Jacobo Taveras MD is Attending Physician. pm1 17:00 Triage completed. aa5 17:39 Carolin Baptiste, DONALD is Primary Nurse. ld1 17:43 Patient has correct armband on for positive identification. Placed in gown. Bed in low ld1 position. Call light in reach. Side rails up X2. gambling monitor on. Pulse ox on. NIBP on. Door closed. Noise minimized. Warm blanket given. 17:43 No provider procedures requiring assistance completed. Patient maintains SpO2 ld1 saturation greater than 95% on room air. 17:59 XRAY Chest (1 view) In Process Unspecified. EDMS 19:44 Client placed on continuous cardiac and pulse oximetry monitoring. NIBP monitoring lg3 applied. gambling monitor on. Door closed. Noise minimized. Warm blanket given. 19:50 IV is patent, with good blood return, Flushed right hand with 5 ml normal saline. lg3 22:14 Tunde Gonzáles MD is Hospitalizing Provider. pm1 23:05 Patient admitted, IV remains in place. intact, No redness/swelling at site. lg3 Administered Medications: 21:15 Drug: Lasix (furosemide) 40 mg Route: IVP; Site: right hand; lg3 23:05 Follow up: Response: No adverse reaction lg3 Medication: 17:43 VIS not applicable for this client. ld1 Outcome: 22:16 Decision to Hospitalize by Provider. pm1 23:05 Admitted to Med/surg accompanied by tech, via wheelchair, room 403, with oxygen. lg3 23:05 Condition: stable 23:05 Instructed on the need for admit, Demonstrated understanding of instructions. 12/11 00:01 Patient left the ED. lg3 Signatures: Dispatcher [employer] EDMS Bibi Molina RN RN aa5 Christiano Guerrero, JODEE NANOTECHNOLOGIST pm1 Mikayla Argueta am2 Naz Thrasher, DONALD RN lg3 Carolin Baptiste RN RN ld1 Corrections: (The following items were deleted from the chart) 12/10 21:16 19:44 BP 108 / 60; Pulse 72bpm; Resp 20bpm; Spontaneous; Pulse Ox 98% 2 lpm; Temp 98.9F lg3 Oral; Pain 0/10; lg3 21:17 19:44 BP 108 / 60; Pulse 72bpm; Resp 20bpm; Spontaneous; Pulse Ox 98% 5 lpm; Temp 98.9F lg3 Oral; Pain 0/10; lg3
--- NOTE | 2022-12-10 22:57 | P.HP ---
Certification for Inpatient Patient admitted to: Inpatient With expected LOS: >2 Midnights Patient will require the following post-hospital care: None Practitioner: I am a practitioner with admitting privileges, knowledge of patient current condition, hospital course, and medical plan of care. Services: Services provided to patient in accordance with Admission requirements found in Title 42 Section 412.3 of the Code of Federal Regulations <Beny Uribe - Last Filed: 12/10/22 22:57> Patient History Date of Service: 12/10/22 Reason for admission: CHF exacerbation, AICD discharge. History of Present Illness: 72-year-old male with history of chronic systolic congestive heart failure, CKD 2, diabetes mellitus type 2insulin-dependent, hypertension, hyperlipidemia, COPD/asbestosis on chronic home oxygen5 L presents to the emergency department for dyspnea, lower extremity edema, AICD discharge. He reports over the course of the last couple weeks he has had increasing lower extremity edema, shortness of breath despite his diuretic dose and today while standing in the kitchen he began to feel short of breath, lightheaded and was subsequently shocked by his pacemaker 1 time. He was evaluated here in the emergency department his labs are significant for creatinine 1.56 GFR 47 BUN 20 glucose 191 BNP 514 chest x- ray was obtained which revealed new patchy right more than left perihilar airspace opacities. Findings may be related to pulmonary edema or developing pneumonia. Patient denies any fever, chills lipids account normal at this time suspect this is more related to CHF exacerbation. Procalcitonin added on. He was given 40 mg of IV Lasix in the emergency department and has had good amount of diuresis, will admit for further evaluation and management of acute on chronic systolic congestive heart failure, AICD discharge. - Past Medical/Surgical History Diabetic: Yes -: HTN -: HLD -: DM insulin-dependent -: CAD -: myocardial infarcation -: Systolic CHF -: COPD on home O2, 5L -: CKD II/ Proteinuria (Dr. Dacosta) -: pacemaker/defibrillator -: cardiac stent x2 -: lumbar laminectomy -: cervical spine surgery Psychosocial/ Personal History: Patient lives at home, alone - Social History Smoking Status: Never smoker Alcohol use: No CD- Drugs: No Caffeine use: Yes Place of Residence: Home <Beny Uribe - Last Filed: 12/10/22 22:57> Date of Service: 12/11/22 <Tunde Gonzáles - Last Filed: 12/11/22 06:41> Allergies No Known Allergies Allergy (Verified 03/07/22 00:07) Home Medications: RX: Aspirin [Aspirin EC 81 MG] 81 mg PO DAILY #30 tablet. 03/27/22 RX: Atorvastatin Calcium [Lipitor] 80 mg PO DAILY #30 tab 03/27/22 RX: Clopidogrel Bisulfate [Plavix*] 75 mg PO DAILY #30 tablet 03/27/22 RX: Insulin NPH Human [Novolin N (Humulin N)*] 10 units SQ BIDWM #10 ml 03/27/22 RX: Metformin ER [Glucophage ER*] 500 mg PO BID #60 tab.sa 03/27/22 RX: Spironolactone [Aldactone*] 25 mg PO DAILY 30 Days #30 tab 04/03/22 RX: Fluticasone [Flonase 50MCG Nasal [place]*] 1 sprays YUE PRN PRN 07/23/22 RX: Potassium Oral Tab [Klor-Con 10 mEq Tab*] 1 tab PO DAILY 07/23/22 RX: glipiZIDE [Glipizide] 10 mg PO BID 07/23/22 RX: Amiodarone HCl [Cordarone*] 200 mg PO BID 30 Days #60 tab 07/24/22 Bumetanide [Bumex] 4 mg PO BID 30 Days #240 tab 10/19/22 Codeine/APAP [Tylenol W/Codeine #3 tab] 1 tab PO Q8HP PRN #10 tab 10/19/22 Insulin NPH Human Isophane [Novolin N Flexpen] 10 unit SQ BIDWM 30 Days #6 ml 10/19/22 Review of Systems 10-point ROS is otherwise unremarkable Respiratory: Shortness of Breath, SOB with Excertion Cardiovascular: Chest Pain, Palpitations, Edema, Light Headedness, As per HPI <Beny Uribe - Last Filed: 12/10/22 22:57> Physical Examination - Physical Exam General: Alert, In no apparent distress, Oriented x3, Obese HEENT: Atraumatic, PERRLA, Mucous membr. moist/pink, EOMI, Sclerae nonicteric Neck: Supple, 2+ carotid pulse no bruit, No LAD, Without JVD or thyroid abnormality Respiratory: Diminished, Crackles/rales Cardiovascular: Regular rate/rhythm, Normal S1 S2, Edema (3+ pitting edema bilateral lower extremities) Capillary refill: <2 Seconds Gastrointestinal: Normal bowel sounds, No tenderness Musculoskeletal: No tenderness Integumentary: No rashes Neurological: Normal speech, Normal strength at 5/5 x4 extr, Normal tone, Normal affect - Studies Laboratory Data (last 24 hrs) 12/10/22 20:18: PT 11.1, INR 1.01 12/10/22 20:18: Sodium 136, Potassium 4.7, BUN 20 H, Creatinine 1.56 H, Glucose 191 H, Magnesium 2.4, Total Bilirubin 0.3, AST 13 L, ALT 14 L, Alkaline Phosphatase 176 H 12/10/22 17:18: WBC 8.90, Hgb 13.5 L, Hct 41.0, Plt Count 201 <Beny Uribe - Last Filed: 12/10/22 22:57> - Studies Laboratory Data (last 24 hrs) 12/10/22 20:18: PT 11.1, INR 1.01 12/10/22 20:18: Sodium 136, Potassium 4.7, BUN 20 H, Creatinine 1.56 H, Glucose 191 H, Magnesium 2.4, Total Bilirubin 0.3, AST 13 L, ALT 14 L, Alkaline Phosphatase 176 H 12/10/22 17:18: WBC 8.90, Hgb 13.5 L, Hct 41.0, Plt Count 201 <Tunde Gonzáles - Last Filed: 12/11/22 06:41> Assessment and Plan - Plan Assessment: Dyspnea, edema secondary to acute on chronic systolic congestive heart failure with pacemaker/defibrillator in place AICD discharge History of CAD LEELA on CKD 3 Diabetes mellitus type 2insulin-dependent Hypertension Hyperlipidemia COPD/asbestosis on chronic home O25 L Plan: Dyspnea, edema secondary to acute on chronic systolic congestive heart failure with pacemaker/defibrillator in place Continue with IV diuresis, cardiology and nephrology to be consulted. Echocardiogram ordered. Patient with significant lower extremity edema likely to require multiple days of diuresis. Chest x-ray with pulmonary edema versus pneumonia, patient afebrile with pleasant, the normal limits suspect more related to CHF. Procalcitonin ordered, low threshold for antibiotics. AICD discharge [place]. History of CAD Continue home medications LEELA on CKD 3 Nephrology and cardiology consulted. Continue with diuresis. Diabetes mellitus type 2insulin-dependent ACHS Accu-Chek, sliding scale insulin, A1c in the morning. Hypertension Hyperlipidemia Continue home medications COPD/asbestosis on chronic home O25 L Continue supplemental oxygen, no suspected active COPD exacerbation. DVT PPX: Heparin subcu Code status: Full Discharge Plan: Home Plan to discharge in: 72 Hours - Advance Directives Does patient have a Living Will: No Does patient have a Durable POA for Healthcare: Yes - Code Status/Comfort Care Code Status Assessed: Yes (Full code) Critical Care: No Time Spent Managing Pts Care (In Minutes): 70 <Beny Uribe - Last Filed: 12/10/22 22:57> Physician Review Additional Text: I did not assess this patient. He was admitted to Dr. Melendez's service. Please refer to his notes for further details. <Tunde Gonzáles - Last Filed: 12/11/22 06:41>
[2022-12-11] MEDS ORDERED: ONDANSETRON 4 MG/2 ML VIAL IV PRN (00:12)
[2022-12-11] MEDS: FUROSEMIDE 40 MG/4 ML VIAL IV SCH ×3 (01:00→09:14)
[2022-12-11 04:04] LABS: Absolute Lymphocytes (CBC) 1.4 K/uL (0.7-4.9); Hematocrit 39.9 % (39.6-49.0); Lymphocytes % 16.4 % (15.3-44.8); MCV 96.3 fL (80-100); MPV 9.2 fL (7.6-11.3); RBC Red Blood Cell Count 4.15 M/uL (4.33-5.43)
[2022-12-11 04:43] LABS: Magnesium 2.3 mg/dL (1.6-2.4); Potassium 4.4 mmol/L (3.5-5.1); Thyroid Stimulating Hormone 1.04 uIU/mL (0.358-3.740)
[2022-12-11] MEDS: SPIRONOLACTONE 25 MG TABLET PO SCH ×2 (09:14→20:29)
[2022-12-11] MEDS: HEPARIN 5000 UNIT/ML 1 ML VIAL SQ SCH ×2 (09:14→20:42)
[2022-12-11] MEDS: CLOPIDOGREL 75 MG TABLET PO SCH (09:15)
[2022-12-11] MEDS: ASPIRIN EC 81 MG TAB PO SCH (09:15)
[2022-12-11] MEDS: INSULIN -REGULAR HUMAN 50 UNIT/0.5 ML ML SQ SCH ×4 (09:15→20:33)
--- NOTE | 2022-12-11 11:55 | P.PN ---
Subjective Date of Service: 12/11/22 Chief Complaint: CHF exacerbation, AICD discharge. Patient is 72 years of age admitted with blisters in his left leg worsening shortness of breath lower extremity edema denies any fever or chills Review of Systems General: Weakness Respiratory: Shortness of Breath Cardiovascular: Edema Physical Examination - Vital Signs Temperature: 97.6 F Blood Pressure: 103/54 Pulse: 73 Respirations: 18 Pulse Ox (%): 94 - Physical Exam General: Alert, Oriented x3 Respiratory: Clear to auscultation bilaterally, Diminished Cardiovascular: Edema (3+ edema some superficial erosions in the left leg) Gastrointestinal: Normal bowel sounds, Soft and benign - Studies Laboratory Data (last 24 hrs) 12/10/22 20:18: PT 11.1, INR 1.01 12/10/22 20:18: Sodium 136, Potassium 4.7, BUN 20 H, Creatinine 1.56 H, Glucose 191 H, Magnesium 2.4, Total Bilirubin 0.3, AST 13 L, ALT 14 L, Alkaline Phosphatase 176 H 12/10/22 17:18: WBC 8.90, Hgb 13.5 L, Hct 41.0, Plt Count 201 Assessment And Plan - Current Problems (Diagnosis) (1) CHF (congestive heart failure) Current Visit: No Status: Acute Plan: Patient is 72 years of age metabolic syndrome admitted with congestive heart failure worsening lower extremity edema some superficial ulcerations in the left leg he has mild degree of cellulitis increase the Lasix to 80 mg twice daily add spironolactone Qualifiers: Heart failure type: combined systolic and diastolic Heart failure chronicity: acute on chronic Qualified Code(s): I50.43 - Acute on chronic combined systolic (congestive) and diastolic (congestive) heart failure (2) Cellulitis Current Visit: Yes Status: Acute Plan: Patient appears to have cellulitis of the left leg evaluated p.o. antibiotics Qualifiers: Site of cellulitis: extremity (3) Chronic renal failure Current Visit: Yes Status: Acute Plan: Kidney function stable Qualifiers: Chronic kidney disease stage: stage 3 (moderate)
[2022-12-11] MEDS ORDERED: GLUCAGON 1 MG/VIAL IM PRN (11:56)
[2022-12-11] MEDS ORDERED: D50W 25 GM/50 ML SYRINGE IV PRN (11:56)
[2022-12-11] MEDS ORDERED: D10W 125 ML IV PRN (12:12)
[2022-12-11] MEDS: CEPHALEXIN 500 MG CAP PO SCH ×2 (12:16→17:49)
--- NOTE | 2022-12-11 14:31 | EKG ---
Test Date: 2022-12-10 Test Time: 17:13:10 Craft Coordinator: JACK MEASUREMENT RESULTS: Intervals: Rate: 78 AL: 110 QRSD: 144 QT: 444 QTc: 506 Mico: P: 5 AL: 110 QRS: 185 T: -9 INTERPRETIVE STATEMENTS: Electronic ventricular pacemaker Compared to ECG 10/11/2022 04:02:54 Atrial-sensed ventricular-paced complex(es) or rhythm no longer present AV dual-paced complex(es) or rhythm no longer present Electronically Signed On 12-11-22 14:28:57 [employer] by Jorge Antonio
--- NOTE | 2022-12-11 15:40 | P.CNS ---
Date of Consult: 12/11/22 Reason for Consult: Elevated creatinine level, volume overload Requesting Physician: Beny Uribe Chief Complaint: CHF exacerbation, AICD discharge. 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 Pt was admitted for CHF exacerbation. His diuretics were escalated, he claims he was only taking Lasix 20 mg BID, although elsewhere in the EMR on his ambulatory meds list there is Bumex listed. Allergies No Known Allergies Allergy (Verified 03/07/22 00:07) Home Medications: Aspirin [Aspirin EC 81 MG] 81 mg PO DAILY #30 tablet. 03/27/22 Atorvastatin Calcium [Lipitor] 80 mg PO DAILY #30 tab 03/27/22 Clopidogrel Bisulfate [Plavix*] 75 mg PO DAILY #30 tablet 03/27/22 Insulin NPH Human [Novolin N (Humulin N)*] 10 units SQ BIDWM #10 ml 03/27/22 Metformin ER [Glucophage ER*] 500 mg PO BID #60 tab.sa 03/27/22 Spironolactone [Aldactone*] 25 mg PO DAILY 30 Days #30 tab 04/03/22 Fluticasone [Flonase 50MCG Nasal [place]*] 1 sprays YUE PRN PRN 07/23/22 Potassium Oral Tab [Klor-Con 10 mEq Tab*] 1 tab PO DAILY 07/23/22 glipiZIDE [Glipizide] 10 mg PO BID 07/23/22 Amiodarone HCl [Cordarone*] 200 mg PO BID 30 Days #60 tab 07/24/22 Bumetanide [Bumex] 4 mg PO BID 30 Days #240 tab 10/19/22 Codeine/APAP [Tylenol W/Codeine #3 tab] 1 tab PO Q8HP PRN #10 tab 10/19/22 Insulin NPH Human Isophane [Novolin N Flexpen] 10 unit SQ BIDWM 30 Days #6 ml 10/19/22 - Past Medical/Surgical History Diabetic: Yes -: HTN -: HLD -: DM insulin-dependent -: CAD -: myocardial infarcation -: Systolic CHF -: COPD on home O2, 5L -: CKD II/ Proteinuria (Dr. Dacosta) -: pacemaker/defibrillator -: cardiac stent x2 -: lumbar laminectomy -: cervical spine surgery Psychosocial/ Personal History: Patient lives at home, alone - Family History Mother Medical History: Kidney disease - Social History Smoking Status: Current every day smoker Alcohol use: No CD- Drugs: No Caffeine use: Yes Place of Residence: Home Review of Systems General: Weakness Respiratory: SOB with Excertion Cardiovascular: Chest Pain, Paroxysmal Noc. Dyspnea, Edema, Light Headedness, As per HPI Musculoskeletal: Pedal edema Neurological: Weakness Physical Examination Temp Pulse Resp BP Pulse Ox 97.4 F 72 19 106/53 L 94 12/11/22 12:00 12/11/22 12:00 12/11/22 12:00 12/11/22 12:00 12/11/22 12:00 General: Alert, In no apparent distress, Oriented x3 HEENT: Atraumatic, Normocephalic Neck: Supple Respiratory: Normal air movement, Other (No rhonchi, mildly dimished at bases) Cardiovascular: Regular rate/rhythm, Edema Gastrointestinal: Other (Mild distention, obese, NT) Musculoskeletal: Other (3+ edema, greater below knee level present b/l, shins are non tender) Integumentary: No rashes Neurological: Normal speech, Normal tone, Normal affect Laboratory Data (last 24 hrs) 12/10/22 20:18: PT 11.1, INR 1.01 12/10/22 20:18: Sodium 136, Potassium 4.7, BUN 20 H, Creatinine 1.56 H, Glucose 191 H, Magnesium 2.4, Total Bilirubin 0.3, AST 13 L, ALT 14 L, Alkaline Phosphatase 176 H 12/10/22 17:18: WBC 8.90, Hgb 13.5 L, Hct 41.0, Plt Count 201 Conclusions/Impression: A/P) 1. Underlying CKD Stage II/IIIa in the setting of his chronic conditions with labs on admission not far from levels seen recently in Oct during admission then, had been seen by Dr. De Santiago during that hospitalization. 2. Continue to monitor renal function closely with loop diuretic escalation, monitor lytes. 3. Would consider replacing Lasix with Torsemide as that has some advantages demonstrated in the literature. 4. BP is soft but would trend and assess if pt might tolerate low dose Entresto as he would benefit from it and may help reduce re-hospitalization due to HF. 5. Ok to continue lower dose Metformin while eGFR > 30 ml/min but would monitor closely, pt also appears to be on the ER form of it. 6. Other HF management per Cardiology. Bandar Dacosta MD, ERIKA
[2022-12-11] MEDS ORDERED: FUROSEMIDE 40 MG/4 ML VIAL IV SCH (17:00)
[2022-12-11] MEDS: NPH (HUMAN) 100 UNITS/ML INSULIN SQ SCH (17:48)
[2022-12-11] MEDS: METFORMIN ER 500 MG TAB PO SCH (17:49)
--- NOTE | 2022-12-11 18:26 | CON ---
Date of Consultation: 12/11/2022 Reason For Consultation: CHF exacerbation, ICD discharge. 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 The pat jyoti is status post multiple cardiac stents placed by myself recently. He comes in because of lower extremity edema and shortness of breath on exertion. He claimed also he was standing in the kitchen, became lightheaded and subsequently was shocked by his pacemaker as he reported. Denies having any chest pain at the present time. No nausea or vomiting. No other complaints. Past Medical History: As outlined above in HPI. Medications: Refer to reconciliation sheet for detailed list. Allergies: NO KNOWN DRUG ALLERGIES. Family History: No premature coronary artery disease or cancer. Social History: He does not smoke or drink. Does not use any drugs. Review of Systems: All systems reviewed and they were negative except as mentioned in HPI. Physical Examination: Vital Signs: Reviewed. Head And Neck: Pupils are equal and reactive to light. Intact eye movements. No JVD. No cervical lymphadenopathy. Neck is supple. Thyroid is not enlarged. Lungs: Decreased breathing sounds with crackles in bases. No accessory muscle use or muscle retract ion. Heart: Regular rate and rhythm. No extra sounds. Abdomen: Soft, nontender. Bowel sounds positive. No organomegaly. No masses or hernia. No rigidi ty or rebound. Extremities: 3+ edema bilaterally. No clubbing or cyanosis. Intact pulses. Skin: No rash. Neurologic: Alert, awake, and oriented x3. No acute focal deficits appreciated. Investigations: BUN 19, creatinine 1.46, which is around his baseline. Troponin x3 are negative and NT-proBNP is slightly elevated. Potassium 4.4, magnesium was 2.3. Assessment/recommendation: 1.[id number] diastolic heart failure exacerbation. His last echo showed normal ejection fract ion. I agree with Lasix 80 mg, switch it to IV form. Monitor BUN, creatinine, and electrolytes. 2.Questionable ICD discharge, I am not sure if he had an ICD in place. We will look at his chest x- ray to confirm, but we will need to get this device interrogated if there was indeed a shock, to see the reason and adjust management or settings accordingly. 3.Hypertension. Blood pressure is acceptable. Continue home medications. SR/MODL Voice ID: [id number] Report ID: [id number]
[2022-12-11] MEDS: glipiZIDE 5 MG TAB PO SCH (20:31)
[2022-12-11] MEDS: FUROSEMIDE 40 MG TABLET PO SCH (20:32)
[2022-12-11] MEDS: HYDROCODONE/APAP 5/325 MG TAB PO PRN (20:33)
[2022-12-11] MEDS ORDERED: FUROSEMIDE 40 MG TABLET PO SCH (21:00)
[2022-12-11 21:22] VITALS: O2SAT 94
[2022-12-12] MEDS: CEPHALEXIN 500 MG CAP PO SCH ×2 (00:57→05:49)
[2022-12-12 05:20] LABS: Absolute Lymphocytes (CBC) 1.6 K/uL (0.7-4.9); Hematocrit 39.3 % (39.6-49.0); MCV 96.2 fL (80-100); MPV 9.1 fL (7.6-11.3); RBC Red Blood Cell Count 4.09 M/uL (4.33-5.43)
[2022-12-12 05:33] LABS: Potassium 4.3 mmol/L (3.5-5.1)
[2022-12-12] MEDS: HYDROCODONE/APAP 5/325 MG TAB PO PRN (06:00)
[2022-12-12] MEDS: INSULIN -REGULAR HUMAN 50 UNIT/0.5 ML ML SQ SCH (07:30)
--- NOTE | 2022-12-12 07:48 | P.DS ---
Admission Date: 12/10/22 Discharge Date: 12/12/22 Disposition: ROUTINE DISCHARGE Discharge Condition: FAIR Reason for Admission: CHF exacerbation, AICD discharge. - Problems (1) CHF (congestive heart failure) Current Visit: No Status: Acute Qualifiers: Heart failure type: combined systolic and diastolic Heart failure chronicity: acute on chronic Qualified Code(s): I50.43 - Acute on chronic combined systolic (congestive) and diastolic (congestive) heart failure (2) Cellulitis Current Visit: Yes Status: Acute Qualifiers: Site of cellulitis: extremity Laterality: left (3) Chronic renal failure Current Visit: Yes Status: Acute Qualifiers: Chronic kidney disease stage: stage 3 (moderate) Brief History of Present Illness: Patient is 72 years of age admitted with lower extremity edema some blistering in his lower leg probably from underlying cellulitis Hospital Course: He refused IV Lasix was treated with p.o. seen by cardiology Dr. Antonio and nephrology at the time of discharge his Lasix was increased to 40 mg twice a day spironolactone added not sure about his medications low-dose spironolactone has been added in addition to increasing Lasix patient has been advised to hold his potassium he is to have a cellulitis responded well to antibiotic normal white count cultures negative at time of discharge alert oriented responsive cooperative vital signs all stable chest clear pain had improved Patient has a history of sleep apnea noncompliant he is to follow-up with me in my office possible repeat sleep study and fix his CPAP machine Vital Signs/Physical Exam: Temp Pulse Resp BP Pulse Ox 97.8 F 64 16 117/43 L 96 12/12/22 04:00 12/12/22 04:00 12/12/22 07:00 12/12/22 04:00 12/12/22 07:00 Laboratory Data at Discharge: WBC 8.50 K/uL (4.3-10.9) 12/12/22 04:12 Hgb 12.8 g/dL (13.6-17.9) L 12/12/22 04:12 Hct 39.3 % (39.6-49.0) L 12/12/22 04:12 Plt Count 196 K/uL (152-406) 12/12/22 04:12 PT 11.1 SECONDS (9.5-12.5) 12/10/22 20:18 INR 1.01 12/10/22 20:18 Sodium 135 mmol/L (136-145) L 12/12/22 04:12 Potassium 4.3 mmol/L (3.5-5.1) 12/12/22 04:12 BUN 19 mg/dL (7-18) H 12/12/22 04:12 Creatinine 1.24 mg/dL (0.70-1.30) 12/12/22 04:12 Glucose 104 mg/dL (74-106) 12/12/22 04:12 Magnesium 2.0 mg/dL (1.6-2.4) 12/12/22 04:12 Total Bilirubin 0.3 mg/dL (0.2-1.0) 12/10/22 20:18 AST 13 U/L (15-37) L 12/10/22 20:18 ALT 14 U/L (16-61) L 12/10/22 20:18 Alkaline Phosphatase 176 U/L (45-117) H 12/10/22 20:18 Triglycerides 137 mg/dL (<150) 12/11/22 03:18 Cholesterol 143 mg/dL (<200) 12/11/22 03:18 HDL Cholesterol 40 mg/dL (40-60) 12/11/22 03:18 Cholesterol/HDL Ratio 3.58 12/11/22 03:18 Home Medications: Aspirin [Aspirin EC 81 MG] 81 mg PO DAILY #30 tablet.dr 03/27/22 Atorvastatin Calcium [Lipitor] 80 mg PO DAILY #30 tab 03/27/22 Clopidogrel Bisulfate [Plavix*] 75 mg PO DAILY #30 tablet 03/27/22 Insulin NPH Human [Novolin N (Humulin N)*] 10 units SQ BIDWM #10 ml 03/27/22 Metformin ER [Glucophage ER*] 500 mg PO BID #60 tab.sa 03/27/22 Spironolactone [Aldactone*] 25 mg PO DAILY 30 Days #30 tab 04/03/22 Fluticasone [Flonase 50MCG Nasal [place]*] 1 sprays YUE PRN PRN 07/23/22 glipiZIDE [Glipizide] 10 mg PO BID 07/23/22 Amiodarone HCl [Cordarone*] 200 mg PO BID 30 Days #60 tab 07/24/22 Codeine/APAP [Tylenol #3*] 1 tab PO Q8HP PRN #10 tab 10/19/22 Insulin NPH Human Isophane [Novolin N Flexpen] 10 unit SQ BIDWM 30 Days #6 ml 10/19/22 Cephalexin [Keflex*] 500 mg PO Q6HR #40 cap 12/12/22 Furosemide [Lasix*] 40 mg PO BID #60 tab 12/12/22 Spironolactone [Aldactone*] 25 mg PO DAILY 30 Days #30 tab 12/12/22 New Medications: Spironolactone [Aldactone*] 25 mg PO DAILY 30 Days #30 tab Cephalexin [Keflex*] 500 mg PO Q6HR #40 cap Furosemide [Lasix*] 40 mg PO BID #60 tab Physician Discharge Instructions: Patient to take spironolactone 25 mg daily which is a new medication increase furosemide to 40 mg twice a day strict fluid intake to 1 L a day Daily weights/ Diet: Low sodium Activity: Ad alec Followup: Sherice Mariscal NP [Primary Care Provider] - Jorge Antonio MD [ACTIVE - CAN ADMIT] - Jamey Melendez MD [ACTIVE - CAN ADMIT] -
[2022-12-12 07:59] VITALS: BMI 36.0
[2022-12-12 09:08] VITALS: BP 103/52; TEMP 97.5
[2022-12-12] MEDS: ASPIRIN EC 81 MG TAB PO SCH (09:17)
[2022-12-12] MEDS: SPIRONOLACTONE 25 MG TABLET PO SCH (09:17)
[2022-12-12] MEDS: HEPARIN 5000 UNIT/ML 1 ML VIAL SQ SCH (09:17)
[2022-12-12] MEDS: METFORMIN ER 500 MG TAB PO SCH (09:18)
[2022-12-12] MEDS: FUROSEMIDE 40 MG TABLET PO SCH (09:18)
[2022-12-12] MEDS: glipiZIDE 5 MG TAB PO SCH (09:18)
[2022-12-12] MEDS: CLOPIDOGREL 75 MG TABLET PO SCH (09:18)
[2022-12-12] MEDS: NPH (HUMAN) 100 UNITS/ML INSULIN SQ SCH (09:18)
== END 2022-12-12 10:00 | disposition home or self-care (01) ==
LOC: ER 16:34 → ERHOLD 22:48 → INTOOBSV 22:48 → 4TH 23:25
PROVIDERS: ADMIT Internal Medicine; ATTEND Internal Medicine Sleep Medicine
DX: I50.23 Acute on chronic systolic (congestive) heart failure (principal); E11.22 Type 2 diabetes mellitus with diabetic chronic kidney disease; I13.0 Hypertensive heart and chronic kidney disease with heart failure and stage 1 through stage 4 chronic kidney disease, or unspecified chronic kidney disease; N18.30 Chronic kidney disease, stage 3 unspecified; N17.9 Acute kidney failure, unspecified; E78.5 Hyperlipidemia, unspecified; J44.9 Chronic obstructive pulmonary disease, unspecified; E11.9 Type 2 diabetes mellitus without complications; I87.1 Compression of vein; L03.116 Cellulitis of left lower limb; I25.2 Old myocardial infarction; Z99.81 Dependence on supplemental oxygen; Z79.4 Long term (current) use of insulin; Z95.0 Presence of cardiac pacemaker
CPT/HCPCS: 93005; 85025 ×3; 80048 ×3; 36415 ×2; 83735 ×3; 85610; 80061; 82947 ×5; 80076; 84443; 83036; 84484 ×3; 84439; 84145; 83880; 71045; 96374; 99285; 87811; J1815 ×4; J1644 ×3; J1940 ×3; G0378

== ENCOUNTER 2024-08-11 17:30 | Inpatient (IN) | payer OTHER ==
--- OUTSIDE RECORDS SUMMARY | 2024-08-11 17:37 | XMS REPORT | Continuity of Care Document ---
Author Name Unknown Address [address] [facility] [address] [place] [address] [facility] Address [address] [facility] [address] [place] [address] Care Team Providers Care Rolled Gold Plater Name Role Phone Lisa Layton Attending Clinician Unavailable Rosalina Jimenez Attending Clinician Unavailable Lauro Lane Attending Clinician Unavailab Marcela Campbell Attending Clinician Unavailable Jorge Antonio Attending Clinician Unavailable Lisa Layton Admitting Clinician Unavailable Harrison Alvarez Admitting Clinician Unavailable Lauro Lane Admitting Clinician Unavailab Marcela Campbell Admitting Clinician Unavailable UNDEFINED Admitting Clinician Unavailable Physician, No Primary or Family Admitting Clinic zina Unavailable Juma Rausch I Admitting Clinician Unavailable Payers Payer Name Policy Type Policy Number Effective Date Expirati on Date Source Allergies, Adverse Reactions, Alerts Allergy Name Allergy Type Status Severity Reaction(s) Onset Date Inactive Date Treating Clinician Comments Source No Known Allergie s DA Active U -15 00:00: 00 [facility] No Known Allergie s DA Active U 10-30 00:00: 00 [facility] Procedures Procedure Date / Time Performed Performing Clinicia n Source [id number] 2024-02-28 00:00:00 [facility] [place] [id number] 2021-10-31 00:00:00 [facility] [place] [id number] 2021-10-31 00:00:00 [facility] [place] [id number] 2021-10-30 00:00:00 [facility] [place] Encounters Start Date/Time End Date/Time Encounter Type Admission Type Attending [facility] Facility Care Department Encounter ID Source 2024-02-29 00:19:00 2024-03-10 20:16:00 Inpatient EM Lisa Layton [facility] TELE [id number] [facility] 2024-02-29 00:00:00 2024-02-29 00:00:00 Outpatient Rosalina Jimenez [facility] LABO [id number] [facility] 2024-02-22 23:24:00 2024-02-28 12:36:[address] [facility] INTE [id number] [facility] 2023-04-17 04:42:00 2023-04-26 22:30:00 Inpatient EM Marcela Samuel [facility] INTE.02 [id number] [facility] 2021-12-24 05:20:00 2021-12-24 05:20:00 Inpatient EL Jorge Antonio [facility] OUTD [id number] [facility] 2021-11-26 05:19:00 2021-11-26 05:19:00 Inpatient EL Jorge Antonio [facility] OUTD [id number] [facility] 2021-10-31 16:03:00 2021-11-01 10:24:00 Inpatient EM Lisa Layton [facility] TELE [id number] [facility] Results Test Description Test Time Test Comments Results Result Co mments Source [id number] 16:17:00* Test Item Value Reference Range Interpretation Comme nts GLUBED (test code = GLUBED) 404 mg/dL 70-110 H [id number] 11:50:00* Test Item Value Reference Range Interpretation Comme nts GLUBED (test code = GLUBED) 274 mg/dL 70-110 H [id number] 08:07:00* Test Item Value Reference Range Interpretation Comme nts GLUBED (test code = GLUBED) 94 mg/dL 70-110 N CBC W/AUTO [id number] 02:30:00* Test Item Value Reference Range Interpretation Comme nts WHITE BLOOD CELL (test code = WBC) 11.7 K/mm3 4.5-11.0 H RED BLOOD CELL (test code = RBC) 3.56 M/mm3 4.40-5.90 L HEMOGLOBIN (test code = HGB) 10.0 gm/dL 13.0-17.0 L HEMATOCRIT (test code = HCT) 32.9 % 36.0-48.0 L MEAN CELL VOLUME (test code = MCV) 92.4 UM3 80.0-94.0 N MEAN CELL HGB (test code = MCH) 28.1 UUG 25.5-32.5 N MEAN CELL HGB CONCETRATION (test code = MCHC) 30.4 gm/dL 29.0-35.5 N RED CELL DISTRIBUTION WIDTH (test code = RDW) 18.6 % 11.5-15.0 H RED CELL DISTRIBUTION WIDTH SD (test code = RDW-SD) 64.1 fL 34.8-50.2 H PLATELET COUNT (test code = PLT) 174 K/mm3 150-400 N MEAN PLATELET VOLUME (test c ode = MPV) 12.1 fl 7.4-10.4 H NEUTROPHIL % (test code = NT%) 79.8 % 49.0-76.0 H IMMATURE GRANULOCYTE % (test code = IG%) 1.2 % 0.0-0.4 H LYMPHOCYTE % (test code = LY%) 7.4 % 23.0-38.0 L MONOCYTE % (test code = MO%) 11.2 % 1.0-10.0 H EOSINOPHIL % (test code = EO%) 0.2 % 1.0-5.0 L BASOPHIL % (test code = BA%) 0.2 % 0.0-1.0 N NUCLEATED RBC % (test code = NRBC%) 0.0 % 0.0-0.1 N NEUTROPHIL # (test code = NT#) 9.3 K/mm3 2.4-6.3 H IMMATURE GRANULOCYTE # (test code = IG#) 0.14 x10 3/uL 0.00-0.07 H LYMPHOCYTE # (test code = LY#) 0.9 K/mm3 1.2-4.0 L MONOCYTE # (test code = MO#) 1.3 K/mm3 0.0-0.6 H EOSINOPHIL # (test code = EO#) 0.0 K/MM3 0.0-0.7 N BASOPHIL # (test code = BA#) 0.0 K/mm3 0.0-0.2 N NUCLEATED RBC # (test code = NRBC#) 0.00 X10 3uL 0.00-0.01 N BASIC METABOLIC [id number] 02:23:00* Test Item Value Reference Range Interpretation Comme nts SODIUM (test code = NA) 139 mmol/l 134.0-147.0 N POTASSIUM (test code = K) 3.4 mmol/L 3.6-5.2 L CHLORIDE (test code = CL) 97 mmol/l 98.0-107.0 L CARBON DIOXIDE (test code = CO2) 37.7 mmol/l 21.0-33.0 H ANION GAP (test code = GAP) 7.7 0-20 N GLUCOSE (test code = GLU) 138 mg/dl 70.0-110.0 H BLOOD UREA NITROGEN (test code = BUN) 27 mg/dl 7.0-18.0 H GLOMERULAR FILTRATION RATE (test code = GFR) 69 mL/min The Glomerular Filtration Rate is a calculated parameterbased on serum Creatinine, patient age and sex. GFR valuesless than 60 mL/min/1.73 square meters are indicative ofChronic Kidney Disease. Values less than 15 mL/min/1.73square meters indicate Kidney failure. The calculation forGFR is based on the CKD-EPI (202) calculation. This formulais race indifferent and is the recommended formula for GFRby the National Kidney Foundation for Adults.The GFR will not calculate if the sex is unknown or if thepatient's age is <18 years. CREATININE (test code = CREAT) 1.13 mg/dL 0.60-1.30 N ESTIMATED CREAT CLEARANCE (test code = ECRCL) 54 mL/min >30 CALCIUM (test code = CA) 8.0 mg/dl 8.0-10.5 N [id number] 22:26:00* Test Item Value Reference Range Interpretation Comme nts GLUBED (test code = GLUBED) 364 mg/dL 70-110 H [id number] 16:22:00* Test Item Value Reference Range Interpretation Comme nts GLUBED (test code = GLUBED) 315 mg/dL 70-110 H [id number] 12:04:00* Test Item Value Reference Range Interpretation Comme nts GLUBED (test code = GLUBED) 262 mg/dL 70-110 H [id number] 08:05:00* Test Item Value Reference Range Interpretation Comme nts GLUBED (test code = GLUBED) 253 mg/dL 70-110 H BASIC METABOLIC [id number] 02:08:00* Test Item Value Reference Range Interpretation Comme nts SODIUM (test code = NA) 138 mmol/l 134.0-147.0 N POTASSIUM (test code = K) 3.9 mmol/L 3.6-5.2 N CHLORIDE (test code = CL) 95 mmol/l 98.0-107.0 L CARBON DIOXIDE (test code = CO2) 36.6 mmol/l 21.0-33.0 H ANION GAP (test code = GAP) 10.3 0-20 N GLUCOSE (test code = GLU) 297 mg/dl 70.0-110.0 H BLOOD UREA NITROGEN (test code = BUN) 30 mg/dl 7.0-18.0 H GLOMERULAR FILTRATION RATE (test code = GFR) 48 mL/min The Glomerular Filtration Rate is a calculated parameterbased on serum Creatinine, patient age and sex. GFR valuesless than 60 mL/min/1.73 square meters are indicative ofChronic Kidney Disease. Values less than 15 mL/min/1.73square meters indicate Kidney failure. The calculation forGFR is based on the CKD-EPI (202) calculation. This formulais race indifferent and is the recommended formula for GFRby the National Kidney Foundation for Adults.The GFR will not calculate if the sex is unknown or if thepatient's age is <18 years. CREATININE (test code = CREAT) 1.54 mg/dL 0.60-1.30 H ESTIMATED CREAT CLEARANCE (test code = ECRCL) 40 mL/min >30 CALCIUM (test code = CA) 8.0 mg/dl 8.0-10.5 N CBC W/AUTO [id number] 01:43:00* Test Item Value Reference Range Interpretation Comme nts WHITE BLOOD CELL (test code = WBC) 12.5 K/mm3 4.5-11.0 H RED BLOOD CELL (test code = RBC) 3.70 M/mm3 4.40-5.90 L HEMOGLOBIN (test code = HGB) 10.3 gm/dL 13.0-17.0 L HEMATOCRIT (test code = HCT) 33.9 % 36.0-48.0 L MEAN CELL VOLUME (test code = MCV) 91.6 UM3 80.0-94.0 MEAN CELL HGB (test code = MCH) 27.8 UUG 25.5-32.5 N MEAN CELL HGB CONCETRATION (test code = MCHC) 30.4 gm/dL 29.0-35.5 N RED CELL DISTRIBUTION WIDTH (test code = RDW) 18.8 % 11.5-15.0 H RED CELL DISTRIBUTION WIDTH SD (test code = RDW-SD) 63.5 fL 34.8-50.2 H PLATELET COUNT (test code = PLT) 176 K/mm3 150-400 N MEAN PLATELET VOLUME (test c ode = MPV) 12.1 fl 7.4-10.4 H NEUTROPHIL % (test code = NT%) 81.5 % 49.0-76.0 H IMMATURE GRANULOCYTE % (test code = IG%) 0.9 % 0.0-0.4 H LYMPHOCYTE % (test code = LY%) 5.7 % 23.0-38.0 L MONOCYTE % (test code = MO%) 11.6 % 1.0-10.0 H EOSINOPHIL % (test code = EO%) 0.2 % 1.0-5.0 L BASOPHIL % (test code = BA%) 0.1 % 0.0-1.0 N NUCLEATED RBC % (test code = NRBC%) 0.0 % 0.0-0.1 N NEUTROPHIL # (test code = NT#) 10.2 K/mm3 2.4-6.3 H IMMATURE GRANULOCYTE # (test code = IG#) 0.11 x10 3/uL 0.00-0.07 H LYMPHOCYTE # (test code = LY#) 0.7 K/mm3 1.2-4.0 L MONOCYTE # (test code = MO#) 1.5 K/mm3 0.0-0.6 H EOSINOPHIL # (test code = EO#) 0.0 K/MM3 0.0-0.7 N BASOPHIL # (test code = BA#) 0.0 K/mm3 0.0-0.2 N NUCLEATED RBC # (test code = NRBC#) 0.00 X10 3uL 0.00-0.01 N [id number] 20:55:00* Test Item Value Reference Range Interpretation Comme nts GLUBED (test code = GLUBED) 254 mg/dL 70-110 H [id number] 16:41:00* Test Item Value Reference Range Interpretation Comme nts GLUBED (test code = GLUBED) 350 mg/dL 70-110 H [id number] 12:36:00* Test Item Value Reference Range Interpretation Comme nts GLUBED (test code = GLUBED) 187 mg/dL 70-110 H [id number] 09:12:00* Test Item Value Reference Range Interpretation Comme nts GLUBED (test code = GLUBED) 100 mg/dL 70-110 N [id number] 21:14:00* Test Item Value Reference Range Interpretation Comme nts GLUBED (test code = GLUBED) 386 mg/dL 70-110 H [id number] 16:00:00* Test Item Value Reference Range Interpretation Comme nts GLUBED (test code = GLUBED) 486 mg/dL 70-110 H [id number] 11:37:00* Test Item Value Reference Range Interpretation Comme nts GLUBED (test code = GLUBED) 218 mg/dL 70-110 H [id number] 07:22:00* Test Item Value Reference Range Interpretation Comme nts GLUBED (test code = GLUBED) 153 mg/dL 70-110 H [id number] 02:46:00* Test Item Value Reference Range Interpretation Comme nts GLUBED (test code = GLUBED) 103 mg/dL 70-110 N [id number] 02:45:00* Test Item Value Reference Range Interpretation Comme nts GLUBED (test code = GLUBED) 309 mg/dL 70-110 H [id number] 02:44:00* Test Item Value Reference Range Interpretation Comme nts GLUBED (test code = GLUBED) 315 mg/dL 70-110 H [id number] 00:50:00* Test Item Value Reference Range Interpretation Comme nts GLUBED (test code = GLUBED) 287 mg/dL 70-110 H [id number] 20:40:00* Test Item Value Reference Range Interpretation Comme nts GLUBED (test code = GLUBED) 361 mg/dL 70-110 H [id number] 16:46:00* Test Item Value Reference Range Interpretation Comme nts GLUBED (test code = GLUBED) 372 mg/dL 70-110 H [id number] 12:50:00* Test Item Value Reference Range Interpretation Comme nts GLUBED (test code = GLUBED) 107 mg/dL 70-110 N [id number] 07:21:00* Test Item Value Reference Range Interpretation Comme nts GLUBED (test code = GLUBED) 83 mg/dL 70-110 N BASIC METABOLIC [id number] 06:23:00* Test Item Value Reference Range Interpretation Comme nts SODIUM (test code = NA) 142 mmol/l 134.0-147.0 N POTASSIUM (test code = K) 3.6 mmol/L 3.6-5.2 N CHLORIDE (test code = CL) 99 mmol/l 98.0-107.0 N CARBON DIOXIDE (test code = CO2) 40.9 mmol/l 21.0-33.0 HH ANION GAP (test code = GAP) 5.7 0-20 N GLUCOSE (test code = GLU) 45 mg/dl 70.0-110.0 LL BLOOD UREA NITROGEN (test code = BUN) 28 mg/dl 7.0-18.0 H GLOMERULAR FILTRATION RATE (test code = GFR) 65 mL/min The Glomerular Filtration Rate is a calculated parameterbased on serum Creatinine, patient age and sex. GFR valuesless than 60 mL/min/1.73 square meters are indicative ofChronic Kidney Disease. Values less than 15 mL/min/1.73square meters indicate Kidney failure. The calculation forGFR is based on the CKD-EPI (202) calculation. This formulais race indifferent and is the recommended formula for GFRby the National Kidney Foundation for Adults.The GFR will not calculate if the sex is unknown or if thepatient's age is <18 years. CREATININE (test code = CREAT) 1.19 mg/dL 0.60-1.30 N ESTIMATED CREAT CLEARANCE (test code = ECRCL) 51 mL/min >30 CALCIUM (test code = CA) 8.2 mg/dl 8.0-10.5 N [id number] 22:10:00* Test Item Value Reference Range Interpretation Comme nts GLUBED (test code = GLUBED) 375 mg/dL 70-110 H [id number] 16:30:00* Test Item Value Reference Range Interpretation Comme nts GLUBED (test code = GLUBED) 344 mg/dL 70-110 H [id number] 11:57:00* Test Item Value Reference Range Interpretation Comme nts GLUBED (test code = GLUBED) 221 mg/dL 70-110 H [id number] 07:15:00* Test Item Value Reference Range Interpretation Comme nts GLUBED (test code = GLUBED) 60 mg/dL 70-110 L BASIC METABOLIC [id number] 06:57:00* Test Item Value Reference Range Interpretation Comme nts SODIUM (test code = NA) 140 mmol/l 134.0-147.0 N POTASSIUM (test code = K) 3.8 mmol/L 3.6-5.2 N CHLORIDE (test code = CL) 97 mmol/l 98.0-107.0 L CARBON DIOXIDE (test code = CO2) 40.2 mmol/l 21.0-33.0 HH ANION GAP (test code = GAP) 6.6 0-20 N GLUCOSE (test code = GLU) 42 mg/dl 70.0-110.0 LL BLOOD UREA NITROGEN (test code = BUN) 33 mg/dl 7.0-18.0 H GLOMERULAR FILTRATION RATE (test code = GFR) 59 mL/min The Glomerular Filtration Rate is a calculated parameterbased on serum Creatinine, patient age and sex. GFR valuesless than 60 mL/min/1.73 square meters are indicative ofChronic Kidney Disease. Values less than 15 mL/min/1.73square meters indicate Kidney failure. The calculation forGFR is based on the CKD-EPI (2020) calculation. This formulais race indifferent and is the recommended formula for GFRby the National Kidney Foundation for Adults.The GFR will not calculate if the sex is unknown or if thepatient's age is <18 years. CREATININE (test code = CREAT) 1.29 mg/dL 0.60-1.30 N ESTIMATED CREAT CLEARANCE (test code = ECRCL) 47 mL/min >30 CALCIUM (test code = CA) 8.3 mg/dl 8.0-10.5 N [id number] 16:33:00* Test Item Value Reference Range Interpretation Comme nts GLUBED (test code = GLUBED) 355 mg/dL 70-110 H VANCOMYCIN [id number] 14:47:00* Test Item Value Reference Range Interpretation Comme nts VANCOMYCIN TROUGH (test code = VANCT) 3.1 mcg/mL 10-20 L Other diseas e associated reference ranges: 10 - 15 mcg/mL Cellulitis, urinary tract infection 15 - 20 mcg/mL Bacteremia, infective endocarditis, osteomyelitis, meningitis, pneumonia, severe skin/soft tissue infection, spinal abscess Specimen comments: DRAW TROUGH PRIOR TO AFTERNOON DOSE OF VANCComments to Geriatric Social Worker: DRAW LEVEL THEN GIVE [id number] 11:55:00* Test Item Value Reference Range Interpretation Comme nts GLUBED (test code = GLUBED) 216 mg/dL 70-110 H [id number] 07:59:00* Test Item Value Reference Range Interpretation Comme nts GLUBED (test code = GLUBED) 168 mg/dL 70-110 H - XR CHEST 1 [id number] 07:09:00 [facility] [place] [place] : 1950 Sex: M FAX: Lisa Layton MD [phone] [place]: EM St: ADM FAX: Harrison Plasencia III [phone] FAX: Dakota Mistry MD [phone] Name: WILLI MERRITT [facility] : 1950 Age/S: 73/M [address] [facility] Unit #: [id number] Loc: [address] Phys: [place] [id number] Acct: [id number] Dis Date: Status: ADM IN PHONE #: [phone] Exam Date: 03/04/2024551 FAX #: [phone] Reason:resp failure EXAMS: CPT CODE: [id number] XR CHEST 1 V 32475 CHEST 1 VIEW CLINICAL INFORMATION: resp failure COMPARISON: Chest CT dated February 28, 2024 FINDINGS: The lungs are underexpanded. There is prominence of the central pulmonary vasculature and interstitial lung markings. Right-sided pulmonarynodules are better evaluated on the comparison CT. The left lateral costophrenic angle is slightly blunted. The right lateral costophrenic angle is partially excluded from view. The cardiac silhouette is mildly enlarged but stable. A left subclavian vein approach multi lead pacer/ICD is redemonstrated. IMPRESSION: 1. Enlarged cardiac silhouette with pulmonary vascular congestion/interstitial edema. 2. Blunting of the lateral costophrenic angles compatible with pleural thickening versus trace effusions. LOCATION: B2 at 0709 Reported and signed by: Kashmir Schmidt M.D. CC: Lisa Layton MD; Harrison Alvarez III, MD; Dakota Melgar MD Technologist: YUMIKO SULLIVAN Trnscrd Date/Time/By: 03/04/2024 (0709) : By: [email or web address] PAGE 1 Signed Report FAX: Lisa Layton MD [phone] [place]: St: [facility] FAX: Kyleigh Harrison Alvarez [facility] [phone] FAX: Dakota Mistry MD [phone] Name: WILLI MERRITT [facility] : 1950 Age/S: 73/M [address] [facility] [place] Unit #: [id number] Loc: [address] Phys: [place] [id number] Acct: [id number] Dis Date: Status: ADM IN PHONE #: [phone] Exam Date: 03/04/2024551 FAX #: [phone] Reason: resp failure EXAMS: CPT CODE: [id number] XR CHEST 1 V 56495 (Continued) Orig Print D/T: S: 03/04/2024 (0712) PAGE 2 Signed ReportBASIC METABOLIC [id number] 06:42:00* Test Item Value Reference Range Interpretation Comme nts SODIUM (test code = NA) 140 mmol/l 134.0-147.0 N POTASSIUM (test code = K) 4.5 mmol/L 3.6-5.2 N CHLORIDE (test code = CL) 97 mmol/l 98.0-107.0 L CARBON DIOXIDE (test code = CO2) 38.4 mmol/l 21.0-33.0 H ANION GAP (test code = GAP) 9.1 0-20 N GLUCOSE (test code = GLU) 223 mg/dl 70.0-110.0 H BLOOD UREA NITROGEN (test code = BUN) 39 mg/dl 7.0-18.0 H GLOMERULAR FILTRATION RATE (test code = GFR) 53 mL/min The Glomerular Filtration Rate is a calculated parameterbased on serum Creatinine, patient age and sex. GFR valuesless than 60 mL/min/1.73 square meters are indicative ofChronic Kidney Disease. Values less than 15 mL/min/1.73square meters indicate Kidney failure. The calculation forGFR is based on the CKD-EPI (2020) calculation. This formulais race indifferent and is the recommended formula for GFRby the National Kidney Foundation for Adults.The GFR will not calculate if the sex is unknown or if thepatient's age is <18 years. CREATININE (test code = CREAT) 1.42 mg/dL 0.60-1.30 H ESTIMATED CREAT CLEARANCE (test code = ECRCL) 43 mL/min >30 CALCIUM (test code = CA) 9.0 mg/dl 8.0-10.5 N CBC W/O [id number] 06:24:00* Test Item Value Reference Range Interpretation Comme nts WHITE BLOOD CELL (test code = WBC) 14.4 K/mm3 4.5-11.0 H RED BLOOD CELL (test code = RBC) 3.99 M/mm3 4.40-5.90 L HEMOGLOBIN (test code = HGB) 11.1 gm/dL 13.0-17.0 L HEMATOCRIT (test code = HCT) 38.5 % 36.0-48.0 N MEAN CELL VOLUME (test code = MCV) 96.5 UM3 80.0-94.0 H MEAN CELL HGB (test code = MCH) 27.8 UUG 25.5-32.5 N MEAN CELL HGB CONCETRATION ( test code = MCHC) 28.8 gm/dL 29.0-35.5 L RED CELL DISTRIBUTION WIDTH (test code = RDW) 19.3 % 11.5-15.0 H PLATELET COUNT (test code = PLT) 177 K/mm3 150-400 N MEAN PLATELET VOLUME (test c ode = MPV) 11.2 fl 7.4-10.4 H [id number] 20:25:00* Test Item Value Reference Range Interpretation Comme nts GLUBED (test code = GLUBED) 314 mg/dL 70-110 H [id number] 07:40:00* Test Item Value Reference Range Interpretation Comme nts GLUBED (test code = GLUBED) 264 mg/dL 70-110 H BASIC METABOLIC [id number] 06:16:00* Test Item Value Reference Range Interpretation Comme nts SODIUM (test code = NA) 133 mmol/l 134.0-147.0 L POTASSIUM (test code = K) 4.9 mmol/L 3.6-5.2 N CHLORIDE (test code = CL) 94 mmol/l 98.0-107.0 L CARBON DIOXIDE (test code = CO2) 35.0 mmol/l 21.0-33.0 H ANION GAP (test code = GAP) 8.9 0-20 N GLUCOSE (test code = GLU) 271 mg/dl 70.0-110.0 H BLOOD UREA NITROGEN (test code = BUN) 44 mg/dl 7.0-18.0 H GLOMERULAR FILTRATION RATE (test code = GFR) 50 mL/min The Glomerular Filtration Rate is a calculated parameterbased on serum Creatinine, patient age and sex. GFR valuesless than 60 mL/min/1.73 square meters are indicative ofChronic Kidney Disease. Values less than 15 mL/min/1.73square meters indicate Kidney failure. The calculation forGFR is based on the CKD-EPI (202) calculation. This formulais race indifferent and is the recommended formula for GFRby the National Kidney Foundation for Adults.The GFR will not calculate if the sex is unknown or if thepatient's age is <18 years. CREATININE (test code = CREAT) 1.48 mg/dL 0.60-1.30 H ESTIMATED CREAT CLEARANCE (test code = ECRCL) 41 mL/min >30 CALCIUM (test code = CA) 8.9 mg/dl 8.0-10.5 N [id number] 21:11:00* Test Item Value Reference Range Interpretation Comme nts GLUBED (test code = GLUBED) 289 mg/dL 70-110 H [id number] 16:37:00* Test Item Value Reference Range Interpretation Comme nts GLUBED (test code = GLUBED) 288 mg/dL 70-110 H [id number] 11:48:00* Test Item Value Reference Range Interpretation Comme nts GLUBED (test code = GLUBED) 201 mg/dL 70-110 H [id number] 08:13:00* Test Item Value Reference Range Interpretation Comme nts GLUBED (test code = GLUBED) 173 mg/dL 70-110 H BASIC METABOLIC [id number] 05:32:00* Test Item Value Reference Range Interpretation Comme nts SODIUM (test code = NA) 134 mmol/l 134.0-147.0 N POTASSIUM (test code = K) 4.7 mmol/L 3.6-5.2 N CHLORIDE (test code = CL) 94 mmol/l 98.0-107.0 L CARBON DIOXIDE (test code = CO2) 36.7 mmol/l 21.0-33.0 H ANION GAP (test code = GAP) 8.0 0-20 N GLUCOSE (test code = GLU) 138 mg/dl 70.0-110.0 H BLOOD UREA NITROGEN (test code = BUN) 39 mg/dl 7.0-18.0 H GLOMERULAR FILTRATION RATE (test code = GFR) 52 mL/min The Glomerular Filtration Rate is a calculated parameterbased on serum Creatinine, patient age and sex. GFR valuesless than 60 mL/min/1.73 square meters are indicative ofChronic Kidney Disease. Values less than 15 mL/min/1.73square meters indicate Kidney failure. The calculation forGFR is based on the CKD-EPI (202) calculation. This formulais race indifferent and is the recommended formula for GFRby the National Kidney Foundation for Adults.The GFR will not calculate if the sex is unknown or if thepatient's age is <18 years. CREATININE (test code = CREAT) 1.43 mg/dL 0.60-1.30 H ESTIMATED CREAT CLEARANCE (test code = ECRCL) 43 mL/min >30 CALCIUM (test code = CA) 8.6 mg/dl 8.0-10.5 N [id number] 05:32:00* Test Item Value Reference Range Interpretation Comme nts MAGNESIUM (test code = MAG) 2.2 mg/dl 1.8-2.4 N CBC W/AUTO [id number] 05:23:00* Test Item Value Reference Range Interpretation Comme nts WHITE BLOOD CELL (test code = WBC) 15.0 K/mm3 4.5-11.0 H RED BLOOD CELL (test code = RBC) 3.60 M/mm3 4.40-5.90 L HEMOGLOBIN (test code = HGB) 10.1 gm/dL 13.0-17.0 L HEMATOCRIT (test code = HCT) 34.3 % 36.0-48.0 L MEAN CELL VOLUME (test code = MCV) 95.3 UM3 80.0-94.0 H MEAN CELL HGB (test code = MCH) 28.1 UUG 25.5-32.5 N MEAN CELL HGB CONCETRATION (test code = MCHC) 29.4 gm/dL 29.0-35.5 N RED CELL DISTRIBUTION WIDTH (test code = RDW) 19.7 % 11.5-15.0 H RED CELL DISTRIBUTION WIDTH SD (test code = RDW-SD) 69.9 fL 34.8-50.2 H PLATELET COUNT (test code = PLT) 188 K/mm3 150-400 N MEAN PLATELET VOLUME (test c ode = MPV) 12.4 fl 7.4-10.4 H NEUTROPHIL % (test code = NT%) 91.5 % 49.0-76.0 H IMMATURE GRANULOCYTE % (test code = IG%) 1.0 % 0.0-0.4 H LYMPHOCYTE % (test code = LY%) 2.4 % 23.0-38.0 L MONOCYTE % (test code = MO%) 4.9 % 1.0-10.0 N EOSINOPHIL % (test code = EO%) 0.0 % 1.0-5.0 L BASOPHIL % (test code = BA%) 0.2 % 0.0-1.0 N NUCLEATED RBC % (test code = NRBC%) 0.0 % 0.0-0.1 N NEUTROPHIL # (test code = NT#) 13.8 K/mm3 2.4-6.3 H IMMATURE GRANULOCYTE # (test code = IG#) 0.15 x10 3/uL 0.00-0.07 H LYMPHOCYTE # (test code = LY#) 0.4 K/mm3 1.2-4.0 L MONOCYTE # (test code = MO#) 0.7 K/mm3 0.0-0.6 H EOSINOPHIL # (test code = EO#) 0.0 K/MM3 0.0-0.7 N BASOPHIL # (test code = BA#) 0.0 K/mm3 0.0-0.2 N NUCLEATED RBC # (test code = NRBC#) 0.00 X10 3uL 0.00-0.01 N [id number] 00:45:00* Test Item Value Reference Range Interpretation Comme nts GLUBED (test code = GLUBED) 360 mg/dL 70-110 H [id number] 23:58:00* Test Item Value Reference Range Interpretation Comme nts GLUBED (test code = GLUBED) 317 mg/dL 70-110 H [id number] 21:28:00* Test Item Value Reference Range Interpretation Comme nts GLUBED (test code = GLUBED) 514 mg/dL 70-110 HH [id number] 12:13:00* Test Item Value Reference Range Interpretation Comme nts GLUBED (test code = GLUBED) 397 mg/dL 70-110 H BASIC METABOLIC [id number] 05:22:00* Test Item Value Reference Range Interpretation Comme nts SODIUM (test code = NA) 133 mmol/l 134.0-147.0 L POTASSIUM (test code = K) 4.8 mmol/L 3.6-5.2 N CHLORIDE (test code = CL) 93 mmol/l 98.0-107.0 L CARBON DIOXIDE (test code = CO2) 30.4 mmol/l 21.0-33.0 N ANION GAP (test code = GAP) 14.4 0-20 N GLUCOSE (test code = GLU) 499 mg/dl 70.0-110.0 HH BLOOD UREA NITROGEN (test code = BUN) 41 mg/dl 7.0-18.0 H GLOMERULAR FILTRATION RATE (test code = GFR) 41 mL/min The Glomerular Filtration Rate is a calculated parameterbased on serum Creatinine, patient age and sex. GFR valuesless than 60 mL/min/1.73 square meters are indicative ofChronic Kidney Disease. Values less than 15 mL/min/1.73square meters indicate Kidney failure. The calculation forGFR is based on the CKD-EPI (202) calculation. This formulais race indifferent and is the recommended formula for GFRby the National Kidney Foundation for Adults.The GFR will not calculate if the sex is unknown or if thepatient's age is <18 years. CREATININE (test code = CREAT) 1.74 mg/dL 0.60-1.30 H CALCIUM (test code = CA) 8.5 mg/dl 8.0-10.5 N ESTIMATED CREAT CLEARANCE (test code = ECRCL) 35 mL/min >30 [id number] 05:05:00* Test Item Value Reference Range Interpretation Comme nts HGBA1C% (test code = HGBA1C%) 7.9 %A1C 4.8-6.0 H ESTIMATED AVERAGE GLUCOSE (t est code = EAG) 180 MG/DL [id number] 19:36:00* Test Item Value Reference Range Interpretation Comme nts GLUBED (test code = GLUBED) 378 mg/dL 70-110 H [id number] 17:07:00* Test Item Value Reference Range Interpretation Comme nts GLUBED (test code = GLUBED) 298 mg/dL 70-110 H TROP-I HIGH [id number] 03:50:00* Test Item Value Reference Range Interpretation Comme nts TROP-I HIGH SENSITIVITY (test code = TROPIHS) 310 ng/L 0-76 HH CAUTION: Units o f the current TROPI-HS test methodology(ng/L) differ from the prior test methodology (ng/mL) by afactor of 1000. 99th Percentile: Females: 0 - 51 ng/L Males: 0 - 76 ng/LThese results were obtained using [employer] TnIHreagent. Results from different methodologies should not becompared to one another as quantitative results may vary bymethod. TROP-I HIGH [id number] 02:21:00* Test Item Value Reference Range Interpretation Comme nts TROP-I HIGH SENSITIVITY (test code = TROPIHS) 280 ng/L 0-76 HH CAUTION: Units o f the current TROPI-HS test methodology(ng/L) differ from the prior test methodology (ng/mL) by afactor of 1000. 99th Percentile: Females: 0 - 51 ng/L Males: 0 - 76 ng/LThese results were obtained using [employer] TnIHreagent. Results from different methodologies should not becompared to one another as quantitative results may vary bymethod. LACTIC ACID 2ND [id number] 02:21:00* Test Item Value Reference Range Interpretation Comme nts LACTIC ACID 2ND REPEAT (test code = LACT2) 3.0 mmol/L 0.4-2.0 H [id number] 01:05:00* Test Item Value Reference Range Interpretation Comme nts GLUBED (test code = GLUBED) 266 mg/dL 70-110 H LACTIC ACID [id number] 00:14:00* Test Item Value Reference Range Interpretation Comme nts LACTIC ACID REPEAT (test cod e = LACTR) 3.0 mmol/L 0.4-2.0 H - CT CHEST [id number] 00:14:00 [facility] 1950 Sex: M FAX: Harrison Plasencia [facility] [phone] [place]: St: REG FAX: Rosalina Childress MD Name: WILLI MERRITT [facility] :1950 Age/S: 73/M [address] [facility] Unit: [id number] Loc: [address] Phys: [place] [address] Acct: [id number] Dis Date: Status: REG ER PHONE #: [phone] Exam Date: 02/28/20242 FAX #: [phone] Reason: sob EXAMS: CPT CODE: [id number] CT CHEST W/CONTRAST 28797 HISTORY: Pain and shortness of breath COMPARISON:04/24/2023 TECHNIQUE: Axial tomograms through the chest, abdomen and pelvis were obtained after intravenous contrast. One or more of the following dose reduction techniques were used: Automated exposure control, adjustment of the mA and/or kV according to patient size, and/or utilization of iterative reconstruction technique. FINDINGS: CT chest: Aortic and coronary calcifications are present. No mediastinal mass. Multiple small mediastinallymph nodes are present. Pulmonary nodule involving the posterior right upper lobe as well as rightlower lobe posteriorly are present similar to study dated 04/24/2023 with the larger nodule measuring 1.7 x 1.4 cm. Basilar atelectasis is present. CT abdomen and pelvis: Liver: The liver is relatively homogeneous in appearance with no discrete liver lesion demonstrated. Spleen: No significant splenomegaly. No focal splenic lesion. Pancreas: No focal mass or significant peripancreatic stranding orfluid collection. Adrenals: Normal in appearance with no mass identified. Kidneys: No hydronephrosis. No solid renal mass. The gallbladder has a normal CT appearance. No abdominal fluid collection demonstrated. Small inguinal lymph nodes are noted bilaterally. PAGE 1 Signed Report (CONTINUED) FAX:Harrison Plasencia III [phone] [place]: St: REG FAX: Rosalina Chilrdess MD Name: WILLI MERRITT [facility] : 1950 Age/S: 73/M [address] [facility] Unit: [id number] Loc: [address] Phys: [place] [address] Acct: [id number] Dis Date: Status: REG ER PHONE #: [phone] Exam Date: 02/28/2024 2242 FAX #: [phone] Reason: sob EXAMS: CPT CODE: [id number] CT CHEST W/CONTRAST 78518 (Continued) No intrapelvic mass or fluid collection. The appendix is normal in appearance. Noevidence of bowel obstruction. No free air or abscess. No evidence of focal colitis. IMPRESSION: 1.Pulmonary nodules involving posterior right upper lobe posterior right lower lobe similar to prior study dated 04/24/2023. 12 month follow-up recommended. 2. Bibasilar atelectasis. No focal airspace consolidation. 3. No evidence of bowel obstruction. No intra- abdominal free air or abscess. No acuteinflammatory process. at 0014 Reported and signed by: Tunde Bashir M.D. CC: Harrison Alvarez III, MD; Rosalina Jimenez MD Technologist: HALINA MEDINA Trnscrd Dt/Tm: 02/29/2024 (0014) [email or web address] Orig Print D/T: S: 02/29/2024 (0017 PAGE 2 Signed Report- CT ABD PELVIS [id number] 00:14:00 [facility] : 1950 Sex: M FAX: Harrison Plasencia III [phone] [place]: St: [facility] FAX: Rosalina Childress MD Name: WILLI MERRITT [facility] : 1950 Age/S: 73/M [address] [facility] Unit: [id number] Loc: [address] Phys: [place] [address] Acct: [id number] Dis Date: Status: REG ER PHONE #: [phone] Exam D ate: 02/28/2024 2242 FAX #: [phone] Reason: sob EXAMS: CPT CODE: [id number] CT ABD PELVIS W/CONT 16930 HISTORY: Pain and shortness of breath COMPARISON:04/24/2023 TECHNIQUE: Axial tomograms through the chest, abdomen and pelvis were obtained after intravenous contrast. One or more of the following dose reduction techniques were used: Automated exposure control, adjustment of the mA and/or kV according to patient size, and/or utilization of iterative reconstruction technique. FINDINGS: CT chest: Aortic and coronary calcifications are present. No mediastinal mass. Multiple small mediastinallymph nodes are present. Pulmonary nodule involving the posterior right upper lobe as well as rightlower lobe posteriorly are present similar to study dated 04/24/2023 with the larger nodule measuring 1.7 x 1.4 cm. Basilar atelectasis is present. CT abdomen and pelvis: Liver: The liver is relatively homogeneous in appearance with no discrete liver lesion demonstrated. Spleen: No significant splenomegaly. No focal splenic lesion. Pancreas: No focal mass or significant peripancreatic stranding orfluid collection. Adrenals: Normal in appearance with no mass identified. Kidneys: No hydronephrosis. No solid renal mass. The gallbladder has a normal CT appearance. No abdominal fluid collection demonstrated. Small inguinal lymph nodes are noted bilaterally. PAGE 1 Signed Report (CONTINUED) FAX:Harrison Plasencia III [phone] [place]: St: REG FAX: N Rosalina Jimenez MD Name: WILLI MERRITT [facility] : 1950 Age/S: 73/M [address] [facility] Unit: [id number] Loc: [address] Phys: [place] [address] Acct: [id number] Dis Date: Status: REG ER PHONE #: [phone] Exam Date: 02/28/20242 FAX #: [phone] Reason: sob EXAMS: CPT CODE: [id number] CT ABD PELVIS [id number] (Continued) No intrapelvic mass or fluid collection. The appendix is normal in appearance. Noevidence of bowel obstruction. No free air or abscess. No evidence of focal colitis. IMPRESSION: 1. Pulmonary nodules involving posterior right upper lobe posterior right lower lobe similar to prior study dated 04/24/2023. 12 month follow-up recommended. 2. Bibasilar atelectasis. No focal airspace consolidation. 3. No evidence of bowel obstruction. No intra- abdominal free air or abscess. No acuteinflammatory process. at 0014 Reported and signed by: Tunde Bashir M.D. CC: Harrison Alvarez III, MD; Rosalina Jimenez MD Technologist: HALINA MEDINA Trnscrd Dt/Tm: 02/29/2024 (0014) [email or web address] Orig Print D/T: S: 02/29/2024 (0017 PAGE 2 Signed Report- CT HEAD/BRAIN W/O [id number] 23:25:00 [facility] : 1950 Sex: M FAX: Harrison Plasencia III [phone] [place]: St: REG FAX: N Rosalina Jimenez MD Name: WILLI MERRITT [facility] :1950 Age/S: 73/M [address] [facility] Unit: [id number] Loc: [address] Phys: [place] [address] Acct: [id number] Dis Date: Status: REG ER PHONE #: [phone] Exam Date: 02/28/20242238 FAX #: [phone] Reason: sob EXAMS: CPT CODE: [id number] CT HEAD/BRAIN W/OCONT 93143 EXAM: - CT HEAD/BRAIN W/O CONT HISTORY: sob . TECHNIQUE: CT of the brain without contrast: Transaxial images were performed through the brain without intravenous contrast. CT scan performed using appropriate/available dose optimization/reduction techniques. Automated exposure control, adjustment of the MAA and/or KV according to patient size, and or use of IV iterative reconstruction images. Dictation/location code: H-100 COMPARISON: None. FINDINGS: Posterior fossa: Normal. Supratentorial: No acute infarct, hemorrhage, edema, masses or midline shift seen. Mild degree of cerebral atrophy with secondary enlargement of the 3rd and lateral seen. Mild patchy areas of low density in the deep periventricular white matter suggesting findings of mild chronic small vessel ischemic changes.. Other: None. IMPRESSION: No acute intracranial abnormality. at 2325 Reported and signed by: Otto Villalpando Md PAGE 1 Signed Report (CONTINUED) FAX: Harrison Plasencia III [phone] [place]: St: REG FAX: Rosalina Childress MD Name: WILLI MERRITT [facility] : 1950 Age/S: 73/M [address] [facility] Unit: [id number] Loc: [address] [place] [address] Phys: [place] [address] Acct: [id number] Dis Date: Status: REG ER PHONE #: [phone] Exam Date: 02/28/20242238 FAX #: [phone] Reason: sob EXAMS: CPT CODE: [id number] CT HEAD/BRAIN W/O CONT 85730 (Continued) CC: Harrison Alvarez III, MD; Rosalina Jimenez MD Technologist: HALINA MEDINA Trnscrd Dt/Tm: 02/28/2024 (7859) [email or web address] Orig Print D/T: S: 02/28/2024 (0698 PAGE 2 Signed ReportBASIC METABOLIC [id number] 23:20:00* Test Item Value Reference Range Interpretation Comme nts SODIUM (test code = NA) 139 mmol/l 134.0-147.0 N POTASSIUM (test code = K) 4.8 mmol/L 3.6-5.2 N CHLORIDE (test code = CL) 98 mmol/l 98.0-107.0 N CARBON DIOXIDE (test code = CO2) 33.0 mmol/l 21.0-33.0 N ANION GAP (test code = GAP) 12.8 0-20 N GLUCOSE (test code = GLU) 122 mg/dl 70.0-110.0 H BLOOD UREA NITROGEN (test code = BUN) 27 mg/dl 7.0-18.0 H GLOMERULAR FILTRATION RATE (test code = GFR) 54 mL/min The Glomerular Filtration Rate is a calculated parameterbased on serum Creatinine, patient age and sex. GFR valuesless than 60 mL/min/1.73 square meters are indicative ofChronic Kidney Disease. Values less than 15 mL/min/1.73square meters indicate Kidney failure. The calculation forGFR is based on the CKD-EPI (2020) calculation. This formulais race indifferent and is the recommended formula for GFRby the National Kidney Foundation for Adults.The GFR will not calculate if the sex is unknown or if thepatient's age is <18 years. CREATININE (test code = CREAT) 1.40 mg/dL 0.60-1.30 H CALCIUM (test code = CA) 8.9 mg/dl 8.0-10.5 N ESTIMATED CREAT CLEARANCE (test code = ECRCL) 44 mL/min >30 HEPATIC FUNCTION PANEL [id number] 23:20:00* Test Item Value Reference Range Interpretation Comme nts TOTAL PROTEIN (test code = PROT) 7.4 GM/DL 6.0-8.1 N ALBUMIN (test code = ALB) 3.1 gm/dL 3.2-4.7 L BILIRUBIN TOTAL (test code = BILT) 1.1 mg/dl 0.0-1.0 H BILIRUBIN DIRECT (test code = BILD) 0.5 mg/dl 0.0-0.3 H SGOT/AST (test code = AST) 53 Units/L 15-37 H SGPT/ALT (test code = ALT) 31 Units/L 12.0-78.0 N ALKALINE PHOSPHATASE TOTAL ( test code = ALKP) 210 Units/L 50.0-136.0 H [id number] 23:20:00* Test Item Value Reference Range Interpretation Comme nts LIPASE (test code = LIP) 43 Units/L 16-77 N TROP-I HIGH [id number] 23:20:00* Test Item Value Reference Range Interpretation Comme nts TROP-I HIGH SENSITIVITY (test code = TROPIHS) 101 ng/L 0-76 H CAUTION: Units o f the current TROPI-HS test methodology(ng/L) differ from the prior test methodology (ng/mL) by afactor of 1000. 99th Percentile: Females: 0 - 51 ng/L Males: 0 - 76 ng/LThese results were obtained using [employer] T[employer]reagent. Results from different methodologies should not becompared to one another as quantitative results may vary bymethod. LIPOPROTEIN [id number] 23:20:00* Test Item Value Reference Range Interpretation Comme nts LIPOPROTEIN LDL (test code = LDL) 38 mg/dl 70-130 L - XR CHEST 1 [id number] 23:12:00 [facility] 1950 Sex: M FAX: Harrison Plasencia III [phone] [place]: St: REG FAX: Rosalina Childress MD Name: RENÉWILLI [facility] : 1950 Age/S: 73/M [address] [place] [employer] Unit #: [id number] [address]: [address]: [place] [address] Acct: [id number] Dis Date: Status: REG ER PHONE #: [phone] Exam Date: 02/28/20242151 FAX #: [phone] Reason: Code SEPSIS EXAMS: CPT CODE: [id number] XR CHEST1 V 88662 EXAM: - XR CHEST 1 V HISTORY: Code SEPSIS TECHNIQUE: AP radiograph the chest was obtained. Dictation/location code: H-100 COMPARISON: 02/28/2024 FINDINGS: Moderate cardiomegaly. Mild central pulmonary vascularity with interstitial edema. No significant pleural effusions or pneumothorax. Ca rdiac pacemaker with lead wires in satisfactory position. IMPRESSION: Mild central pulmonary vascularity with interstitial edema. at 2312 Reported and signed by: Otto Villalpando Md CC: Harrison Alvarez III, MD; Rosalina Jimenez MD Technologist: YUMIKO SULLIVAN Trnmerd Date/Time/By: 02/28/2024 (231) : By: [email or web address] PAGE 1 Signed Report FAX: Harrison Plasencia III [phone] [place]: St: REG FAX: Rosalina Childress MD ------ Name: WILLI MERRITT [facility] : 1950 Age/S: 73/M [address] [facility] Unit #: [id number] Loc: [address] Phys: [place] [address] Acct: [id number] Dis Date: Status: REG ER PHONE #: [phone] Exam Date: 02/28/20242151 FAX #: [phone] Reason: Code SEPSIS EXAMS: CPT CODE: [id number] XR CHEST 1 V 85327 (Continued) Orig Print D/T: S: 02/28/2024 (1109) PAGE 2 Signed ReportUA RFLX MICR CULT IF [id number] 22:30:00* Test Item Value Reference Range Interpretation Comme nts UA COLOR (test code = COLU) YELLOW UA APPEARANCE (test code = APPU) SLHZY UA GLUCOSE DIPSTICK (test code = DGLUU) NORMAL mg/dl NORMAL UA BILIRUBIN DIPSTICK (test code = BILU) NEGATIVE mg/dL NEGATIVE UA KETONE DIPSTICK (test code = KETU) NEGATIVE mg/dl NEGATIVE UA SPECIFIC GRAVITY (test code = SGU) 1.015 1.000-1.030 UA BLOOD DIPSTICK (test code = ANDREW) NEGATIVE Emilio/micL NEGATIVE UA PH DIPSTICK (test code = TRICIA) 6.0 5.0-9.0 UA PROTEIN DIPSTICK (test code = PROU) 30 mg/dl NEGATIVE UA UROBILINIOGEN DIPSTICK (test code = URO) 4.0 mg/dl mg/dl NORMAL A UA NITRITE DIPSTICK (test code = EVERETTE) NEGATIVE NEGATIVE UA LEUKOCYTE ESTERASE DIPSTICK (test code = LEUU) NEGATIVE Myron/micL NEGATIVE UA WBC (test code = WBCU) 0-3 WBC/HPF NONE UA RBC (test code = RBCU) 0-2 RBC/HPF 0-3 UA EPITHELIAL CELLS (test code = EPIU) 0-3 EPI/HPF 0-3 UA BACTERIA (test code = BACU) FEW NONE Indication for culture: RiskForSepsis-no oth srcSpecimen Description: CLEAN CATCHLACTIC [id number] 22:22:00* Test Item Value Reference Range Interpretation Comme nts LACTIC ACID (test code = LACT) 3.9 mmol/L 0.4-2.0 H ARTERIAL BLOOD [id number] 22:07:00* Test Item Value Reference Range Interpretation Comme nts ARTERIAL BLOOD GAS PH (test code = PHA) 7.473 7.350-7.450 H ARTERIAL BLOOD GAS PCO2 (test code = PCO2A) 48.5 mmHg 35.0-45.0 H ARTERIAL BLOOD GAS PO2 (test code = PO2A) 84.8 mmHg See_Comment [Automated message] The system which generated this result transmitted reference range: 80.0. The reference range was not used to interpret this result as normal/abnormal. BICARBONATE TOTAL HCO3 (test code = HCO3) 34.7 MMOL/L 22.0-26.0 H BASE EXCESS (test code = TERE) 9.8 MMOL/L -4.0-4.0 H ABG O2 SATURATION (test code = SATA) 95.6 % 92.0-99.0 N FIO2 (test code = FIO2A) 40.0 % ABG VENT MODE (test code = MODEA) BiPAP ABG VENT RESP RATE (test code = RRA) 16.0 /MIN ABG SITE (test code = SITEA) LR ALLENS TEST (test code = ALLENS) Unable TOTAL HGB (test code = THB) 11.5 g/dL 12.0-16.0 L CARBOXYHEMOGLOBIN (test code = HOHGBT) 1.1 % THgb 0.0-1.5 N METHEMOGLOBIN (test code = METHGB) 0.3 % 0.0-1.5 N NORMAL <2.0POTENTIALLY TOXIC >20.0 B-TYPE NATRIURETIC [id number] 22:02:00* Test Item Value Reference Range Interpretation Comme nts B-TYPE NATRIURETIC PEPTIDE ( test code = BNP) 697 PG/ML 5-100 H PROTHROMBIN [id number] 21:56:00* Test Item Value Reference Range Interpretation Comme nts PROTHROMBIN TIME PATIENT (test code = PTP) 16.8 SECONDS 9.9-12.8 H INTERNATIONAL NORMAL RATIO (test code = INR) 1.5 0.89-1.14 H THE INR IS TO BE USED ONLY FOR MONITORING ORAL ANTICOAGULANTTHERAPY. THE FOLLOWING ARE SUGGESTED RANGES FROM THEAMERICAN COLLEGE OF CHEST PHYSICIANS:INDICATION INR VALUEPROPHYLAXIS OF VENOUS THROMBOSIS (ORTHOPEDIC SURGERY) 2.0 - 3.0PROPHYLAXIS OF VENOUS THROMBOSIS (OTHER THAN HIGH-RISK SURGERY) 2.0 - 3.0TREATMENT OF DEEP VEIN THROMBOSIS OR PULMONARY EMBOLISM 2.0 - 3.0PREVENTION OF SYSTEMIC EMBOLISM TISSUE HEART VALVES 2.0 - 3.0 ACUTE MYOCARDIAL INFARCTION (TO PREVENT SYSTEMIC EMBOLISM) 2.0 - 3.0 ACUTE MYOCARDIAL INFARCTION (TO PREVENT RECURRENT INFARCT) 2.5 - 3.0 VALVULAR HEART DISEASE 2.0 - 3.0 ATRIAL FIBRILATION 2.0 - 3.0BILEAFLET MECHANICAL VALVE IN AORTIC POSITION 2.0 - 3.0MECHANICAL PROSTHETIC VALVES (HIGH RISK) 2.5 - 3.5PRESENCE OF LUPUS ANTICOAGULANT OR ANTIPHOSPHOLIPID ANTIBODIES 2.5 - 3.5 THROMBOPLASTIN TIME [id number] 21:56:00* Test Item Value Reference Range Interpretation Comme nts THROMBOPLASTIN TIME PARTIAL (test code = PTT) 35.10 SECONDS 25.86-36.07 N [facility] Therapeutic Range - APTT of 48.8-80.3 secondscorrelates with plasma heparin concentration of 0.2-0.4 u/mL CBC W/AUTO [id number] 21:43:00* Test Item Value Reference Range Interpretation Comme nts WHITE BLOOD CELL (test code = WBC) 8.4 K/mm3 4.5-11.0 N RED BLOOD CELL (test code = RBC) 3.61 M/mm3 4.40-5.90 L HEMOGLOBIN (test code = HGB) 10.3 gm/dL 13.0-17.0 L HEMATOCRIT (test code = HCT) 34.2 % 36.0-48.0 L MEAN CELL VOLUME (test code = MCV) 94.7 UM3 80.0-94.0 H MEAN CELL HGB (test code = MCH) 28.5 UUG 25.5-32.5 N MEAN CELL HGB CONCETRATION (test code = MCHC) 30.1 gm/dL 29.0-35.5 N RED CELL DISTRIBUTION WIDTH (test code = RDW) 19.8 % 11.5-15.0 H RED CELL DISTRIBUTION WIDTH SD (test code = RDW-SD) 69.4 fL 34.8-50.2 H PLATELET COUNT (test code = PLT) 204 K/mm3 150-400 N MEAN PLATELET VOLUME (test c ode = MPV) 12.0 fl 7.4-10.4 H NEUTROPHIL % (test code = NT%) 76.2 % 49.0-76.0 H IMMATURE GRANULOCYTE % (test code = IG%) 0.4 % 0.0-0.4 N LYMPHOCYTE % (test code = LY%) 11.5 % 23.0-38.0 L MONOCYTE % (test code = MO%) 11.1 % 1.0-10.0 H EOSINOPHIL % (test code = EO%) 0.4 % 1.0-5.0 L BASOPHIL % (test code = BA%) 0.4 % 0.0-1.0 N NUCLEATED RBC % (test code = NRBC%) 0.0 % 0.0-0.1 N NEUTROPHIL # (test code = NT#) 6.4 K/mm3 2.4-6.3 H IMMATURE GRANULOCYTE # (test code = IG#) 0.03 x10 3/uL 0.00-0.07 N LYMPHOCYTE # (test code = LY#) 1.0 K/mm3 1.2-4.0 L MONOCYTE # (test code = MO#) 0.9 K/mm3 0.0-0.6 H EOSINOPHIL # (test code = EO#) 0.0 K/MM3 0.0-0.7 N BASOPHIL # (test code = BA#) 0.0 K/mm3 0.0-0.2 N NUCLEATED RBC # (test code = NRBC#) 0.00 X10 3uL 0.00-0.01 N ARTERIAL BLOOD [id number] 21:12:00* Test Item Value Reference Range Interpretation Comme nts ARTERIAL BLOOD GAS PH (test code = PHA) 7.404 7.350-7.450 N ARTERIAL BLOOD GAS PCO2 (test code = PCO2A) 58.3 mmHg 35.0-45.0 H ARTERIAL BLOOD GAS PO2 (test code = PO2A) 29.8 mmHg See_Comment LL Results bridges d to and read back by Bux180 21:12 - 02/28/2024; by [id number] [Automated message] The system which generated this result transmitted reference range: 80.0. The reference range was not used to interpret this result as normal/abnormal. BICARBONATE TOTAL HCO3 (test code = HCO3) 35.6 MMOL/L 22.0-26.0 H BASE EXCESS (test code = TERE) 9.2 MMOL/L -4.0-4.0 H ABG O2 SATURATION (test code = SATA) 50.6 % 92.0-99.0 L FIO2 (test code = FIO2A) 40.0 % ABG VENT MODE (test code = MODEA) BiPAP ABG VENT RESP RATE (test code = RRA) 16.0 /MIN ABG SITE (test code = SITEA) RR ALLENS TEST (test code = ALLENS) Unable TOTAL HGB (test code = THB) 11.0 g/dL 12.0-16.0 L CARBOXYHEMOGLOBIN (test code = HOHGBT) 1.2 % THgb 0.0-1.5 N METHEMOGLOBIN (test code = METHGB) 0.1 % 0.0-1.5 N NORMAL <2.0POTENTIALLY TOXIC >20.0 [id number] 11:36:00* Test Item Value Reference Range Interpretation Comme nts GLUBED (test code = GLUBED) 146 mg/dL 70-110 H - XR CHEST 1 [id number] 08:31:00 [facility] : 1950 Sex: M FAX: Lauro Philippe [phone] [place]: St: ADM FAX: Skip Galvan MD [phone] FAX: Harrison Plasencia [facility] [phone] Name: WILLI MERRITT [facility] : 1950 Age/S: 73/M [address] [place] [facility] Unit #: [id number] Loc: [address] Phys: [place] [address] Acct: [id number] DisDate: Status: ADM IN PHONE #: [phone] Exam Date: 02/28/2024630 FAX #: [phone] Reason: sob EXAMS: CPT CODE: [id number] XR CHEST 1 V 93257 REASON FOR EXAM: Shortness of breath. COMPARISON: [facility] 2023. Chest, portable single frontal view. The lungs are well-inflated but the interstitial pattern has become exaggerated likely developing pulmonary edema. Asymmetry in the right lung could indicate some components of pneumonia. ICD leads appear to be stable. Heart size is normal. No effusion or pneumothorax can be seen. Osseous structures appear to be intact. IMPRESSION: Prominent interstitial densities suggest pulmonary edema. Slight asymmetry in the right lung. Location: U19 at 0831 Reported and signed by: Tunde London MD CC: Lauro Lane MD; Skip Santos MD; Harrison Alvarez III, MD Technologist: SANJAY MATAMOROS Trnscrd Date/Time/By: 02/28/2024 (31) : By: [email or web address] PAGE 1 Signed Report FAX: Lauro Philippe [phone] [place]: St: ADM FAX: Skip Galvan MD [phone] FAX: Harrison Plasencia III [phone] Name: WILLI MERRITT [facility] : 1950 Age/S: 73/M [address] [facility] Unit #: [id number] Loc: [address] Phys: [place] [id number] Acct: [id number] Dis Date: Status: ADM IN PHONE #: [phone] Exam Date: 02/28/2024630 FAX #: [phone] Reason: sob EXAMS: CPT CODE: [id number] XR CHEST 1 V 74359 (Continued) Orig Print D/T: S: 02/28/2024 (0834) PAGE 2 Signed [id number] 07:27:00* Test Item Value Reference Range Interpretation Comme nts GLUBED (test code = GLUBED) 96 mg/dL 70-110 N [id number] 20:26:00* Test Item Value Reference Range Interpretation Comme nts GLUBED (test code = GLUBED) 196 mg/dL 70-110 H [id number] 16:52:00* Test Item Value Reference Range Interpretation Comme nts GLUBED (test code = GLUBED) 168 mg/dL 70-110 H - XR CHEST 1 [id number] 15:00:00 [facility] 1950 Sex: M FAX: Lauro Philippe [phone] [place]: St: [facility] FAX: Skip Galvan MD [phone] FAX: Harrison Plasencia III [phone] Name: WILLI MERRITT [facility] : 1950 Age/S: 73/M [address] [facility] Unit #: [id number] Loc: E.432 [place], [place]: [place] [address] Acct: [id number] DisDate: Status: ADM IN PHONE #: [phone] Exam Date: 02/27/2024 05 FAX #: [phone] Reason: sob EXAMS: CPT CODE: [id number] XR CHEST 1 V 74056 CHEST 1 VIEW: INDICATION: sob COMPARISON: Comparison made with prior study of 02/26/2024 Location: H118 A single portable AP view of the chest demonstrates borderline heart size with a mildly elongated aorta. A multi lead left-sided AICD appears in place. The lung ferreira are clear. No apparent pleural effusion nor pneumothorax. The visualized bony structures are unremarkable. IMPRESSION: 1. No acute cardiopulmonary findings seen. ElectronicallySigned by KENYATTA SALINAS M.D. on 02/27/2024 at 1500 Reported and signed by: KENYATTA SALINAS M.D. CC: Lauro Lane MD; Skip Santos MD; Harrison Alvarez III, MD Technologist: SALLY HARE Trnscrd Date/Time/By: 02/27/2024 (1500) : By: [email or web address] PAGE 1 Signed Report FAX: Lauro Philippe [phone] [place]: St: ADM FAX: Skip Galvan MD [phone] FAX: Harrison Plasencia III [phone] Name: WILLI MERRITT [facility] : 1950 Age/S: 73/M [address] [facility] Unit #: [id number] Loc: E.432 [place], [place]: [place] [address] Acct: [id number] Dis Date: Status: ADM IN PHONE #: [phone] Exam Date: 02/27/2024 0532 FAX #: [phone] Reason: sob EXAMS: CPT CODE: [id number] XR CHEST 1 V 36293 (Continued) Orig Print D/T: S: 02/27/2024 (1503) PAGE 2 Signed [id number] 09:00:00* Test Item Value Reference Range Interpretation Comme nts GLUBED (test code = GLUBED) 83 mg/dL 70-110 N BASIC METABOLIC [id number] 06:00:00* Test Item Value Reference Range Interpretation Comme nts SODIUM (test code = NA) 140 mmol/l 134.0-147.0 N POTASSIUM (test code = K) 4.0 mmol/L 3.6-5.2 N CHLORIDE (test code = CL) 97 mmol/l 98.0-107.0 L CARBON DIOXIDE (test code = CO2) 37.8 mmol/l 21.0-33.0 H ANION GAP (test code = GAP) 9.2 0-20 N GLUCOSE (test code = GLU) 118 mg/dl 70.0-110.0 H BLOOD UREA NITROGEN (test code = BUN) 24 mg/dl 7.0-18.0 H GLOMERULAR FILTRATION RATE (test code = GFR) 66 mL/min The Glomerular Filtration Rate is a calculated parameterbased on serum Creatinine, patient age and sex. GFR valuesless than 60 mL/min/1.73 square meters are indicative ofChronic Kidney Disease. Values less than 15 mL/min/1.73square meters indicate Kidney failure. The calculation forGFR is based on the CKD-EPI (202) calculation. This formulais race indifferent and is the recommended formula for GFRby the National Kidney Foundation for Adults.The GFR will not calculate if the sex is unknown or if thepatient's age is <18 years. CREATININE (test code = CREAT) 1.18 mg/dL 0.60-1.30 N ESTIMATED CREAT CLEARANCE (test code = ECRCL) 59 mL/min >30 CALCIUM (test code = CA) 8.6 mg/dl 8.0-10.5 N CBC W/AUTO [id number] 05:52:00* Test Item Value Reference Range Interpretation Comme nts WHITE BLOOD CELL (test code = WBC) 7.2 K/mm3 4.5-11.0 N RED BLOOD CELL (test code = RBC) 3.80 M/mm3 4.40-5.90 L HEMOGLOBIN (test code = HGB) 10.5 gm/dL 13.0-17.0 L HEMATOCRIT (test code = HCT) 36.6 % 36.0-48.0 N MEAN CELL VOLUME (test code = MCV) 96.3 UM3 80.0-94.0 H MEAN CELL HGB (test code = MCH) 27.6 UUG 25.5-32.5 N MEAN CELL HGB CONCETRATION (test code = MCHC) 28.7 gm/dL 29.0-35.5 L RED CELL DISTRIBUTION WIDTH (test code = RDW) 19.6 % 11.5-15.0 H RED CELL DISTRIBUTION WIDTH SD (test code = RDW-SD) 69.0 fL 34.8-50.2 H PLATELET COUNT (test code = PLT) 183 K/mm3 150-400 N MEAN PLATELET VOLUME (test c ode = MPV) 11.3 fl 7.4-10.4 H NEUTROPHIL % (test code = NT%) 71.9 % 49.0-76.0 N IMMATURE GRANULOCYTE % (test code = IG%) 0.4 % 0.0-0.4 N LYMPHOCYTE % (test code = LY%) 15.7 % 23.0-38.0 L MONOCYTE % (test code = MO%) 9.7 % 1.0-10.0 N EOSINOPHIL % (test code = EO%) 1.9 % 1.0-5.0 N BASOPHIL % (test code = BA%) 0.4 % 0.0-1.0 N NUCLEATED RBC % (test code = NRBC%) 0.0 % 0.0-0.1 N NEUTROPHIL # (test code = NT#) 5.2 K/mm3 2.4-6.3 N IMMATURE GRANULOCYTE # (test code = IG#) 0.03 x10 3/uL 0.00-0.07 N LYMPHOCYTE # (test code = LY#) 1.1 K/mm3 1.2-4.0 L MONOCYTE # (test code = MO#) 0.7 K/mm3 0.0-0.6 H EOSINOPHIL # (test code = EO#) 0.1 K/MM3 0.0-0.7 N BASOPHIL # (test code = BA#) 0.0 K/mm3 0.0-0.2 N NUCLEATED RBC # (test code = NRBC#) 0.00 X10 3uL 0.00-0.01 N [id number] 20:28:00* Test Item Value Reference Range Interpretation Comme nts GLUBED (test code = GLUBED) 151 mg/dL 70-110 H [id number] 11:35:00* Test Item Value Reference Range Interpretation Comme nts GLUBED (test code = GLUBED) 192 mg/dL 70-110 H [id number] 08:15:00* Test Item Value Reference Range Interpretation Comme nts GLUBED (test code = GLUBED) 116 mg/dL 70-110 H - XR CHEST 1 [id number] 08:03:00 [facility] : 1950 Sex: M FAX: Lauro Philippe [phone] [place]: St: [facility] FAX: Skip Galvan MD [phone] FAX: Harrison Plasencia III [phone] Name: RENÉWILLI [facility] : 1950 Age/S: 73/M [address] [facility] [email or web address] Unit #: [id number] Loc: E.432 [place], [place]: [place] [address] Acct: [id number] Dis Date: Status: ADM IN PHONE #: [phone] Exam Date: 02/26/2024 0542 FAX #: [phone] Reason: sob EXAMS: CPT CODE: [id number] XR CHEST 1 V 48785 Portable AP chest, 1 view Location Code: D4 CLINIC AL HISTORY: sob COMPARISON: 02/25/2024 COMMENT: The heart size is enlarged with mild central pulmonary edema pattern. Slightly improved and minimal. Left subclavian AICD again seen. Likely tiny effusions. IMPRESSION: Improved CHF with small effusions. at 0803 Reported and signed by: Joesph Betts M.D. CC: Lauro Goyal; Skip Santos MD; Harrison Alvarez III, MD Technologist: YUMIKO SULLIVAN Trnmerd Date/Time/By: 02/26/2024 (0803) : By: [email or web address] PAGE 1 Signed Report FAX: Lauro Philippe [phone] [place]: St: ADM FAX: Skip Galvan MD [phone] FAX: Harrison Plasencia III [phone] Name: WILLI MERRITT [facility] : 1950 Age/S: 73/M [address] [email or web address] Unit #: [id number] Loc: E.432 [place], [place]: [place] [address] Acct: [id number] Dis Date: Status: ADM IN PHONE #: [phone] Exam Date: 02/26/2024 0542 FAX #: [phone] Reason: sob EXAMS: CPT CODE: [id number] XR CHEST 1 V 15400 (Continued) Orig Print D/T: S: 02/26/2024 (0806) PAGE 2 Signed ReportBASIC METABOLIC [id number] 07:19:00* Test Item Value Reference Range Interpretation Comme nts SODIUM (test code = NA) 141 mmol/l 134.0-147.0 N POTASSIUM (test code = K) 4.1 mmol/L 3.6-5.2 N CHLORIDE (test code = CL) 97 mmol/l 98.0-107.0 L CARBON DIOXIDE (test code = CO2) 41.6 mmol/l 21.0-33.0 HH ANION GAP (test code = GAP) 6.5 0-20 N GLUCOSE (test code = GLU) 103 mg/dl 70.0-110.0 N BLOOD UREA NITROGEN (test code = BUN) 23 mg/dl 7.0-18.0 H GLOMERULAR FILTRATION RATE (test code = GFR) 62 mL/min The Glomerular Filtration Rate is a calculated parameterbased on serum Creatinine, patient age and sex. GFR valuesless than 60 mL/min/1.73 square meters are indicative ofChronic Kidney Disease. Values less than 15 mL/min/1.73square meters indicate Kidney failure. The calculation forGFR is based on the CKD-EPI (2020) calculation. This formulais race indifferent and is the recommended formula for GFRby the National Kidney Foundation for Adults.The GFR will not calculate if the sex is unknown or if thepatient's age is <18 years. CREATININE (test code = CREAT) 1.24 mg/dL 0.60-1.30 N ESTIMATED CREAT CLEARANCE (test code = ECRCL) 56 mL/min >30 CALCIUM (test code = CA) 8.2 mg/dl 8.0-10.5 N [id number] 07:09:00* Test Item Value Reference Range Interpretation Comme nts HGBA1C% (test code = HGBA1C%) 7.9 %A1C 4.8-6.0 H ESTIMATED AVERAGE GLUCOSE (t est code = EAG) 180 MG/DL CBC W/AUTO [id number] 06:59:00* Test Item Value Reference Range Interpretation Comme nts WHITE BLOOD CELL (test code = WBC) 7.0 K/mm3 4.5-11.0 N RED BLOOD CELL (test code = RBC) 3.83 M/mm3 4.40-5.90 L HEMOGLOBIN (test code = HGB) 10.6 gm/dL 13.0-17.0 L HEMATOCRIT (test code = HCT) 36.5 % 36.0-48.0 N MEAN CELL VOLUME (test code = MCV) 95.3 UM3 80.0-94.0 H MEAN CELL HGB (test code = MCH) 27.7 UUG 25.5-32.5 N MEAN CELL HGB CONCETRATION (test code = MCHC) 29.0 gm/dL 29.0-35.5 N RED CELL DISTRIBUTION WIDTH (test code = RDW) 19.6 % 11.5-15.0 H RED CELL DISTRIBUTION WIDTH SD (test code = RDW-SD) 69.6 fL 34.8-50.2 H PLATELET COUNT (test code = PLT) 179 K/mm3 150-400 N MEAN PLATELET VOLUME (test c ode = MPV) 11.2 fl 7.4-10.4 H NEUTROPHIL % (test code = NT%) 72.7 % 49.0-76.0 N IMMATURE GRANULOCYTE % (test code = IG%) 0.1 % 0.0-0.4 N LYMPHOCYTE % (test code = LY%) 15.6 % 23.0-38.0 L MONOCYTE % (test code = MO%) 9.8 % 1.0-10.0 N EOSINOPHIL % (test code = EO%) 1.4 % 1.0-5.0 N BASOPHIL % (test code = BA%) 0.4 % 0.0-1.0 N NUCLEATED RBC % (test code = NRBC%) 0.0 % 0.0-0.1 N NEUTROPHIL # (test code = NT#) 5.1 K/mm3 2.4-6.3 N IMMATURE GRANULOCYTE # (test code = IG#) 0.01 x10 3/uL 0.00-0.07 N LYMPHOCYTE # (test code = LY#) 1.1 K/mm3 1.2-4.0 L MONOCYTE # (test code = MO#) 0.7 K/mm3 0.0-0.6 H EOSINOPHIL # (test code = EO#) 0.1 K/MM3 0.0-0.7 N BASOPHIL # (test code = BA#) 0.0 K/mm3 0.0-0.2 N NUCLEATED RBC # (test code = NRBC#) 0.00 X10 3uL 0.00-0.01 N [id number] 00:20:00* Test Item Value Reference Range Interpretation Comme nts GLUBED (test code = GLUBED) 114 mg/dL 70-110 H [id number] 23:15:00* Test Item Value Reference Range Interpretation Comme nts GLUBED (test code = GLUBED) 164 mg/dL 70-110 H [id number] 16:39:00* Test Item Value Reference Range Interpretation Comme nts GLUBED (test code = GLUBED) 109 mg/dL 70-110 N - XR CHEST 1 [id number] 11:49:00 [facility] : 1950 Sex: M FAX: Lauro Philippe [phone] [place]: St: [facility] FAX: Skip Galvan MD [phone] FAX: Harrison Plasencia III [phone] Name: WILLI MERRITT [facility] : 1950 Age/S: 73/M [address] [facility] Unit #: [id number] Loc: E.432 [place], [place]: [place] [address] Acct: [id number] Dis Date: Status: ADM IN PHONE #: [phone] Exam Date: 02/25/2024616 FAX #: [phone] Reason: sob EXAMS: CPT CODE: [id number] XR CHEST 1 V 18935 CHEST 1 VIEW CLINICAL INFORMATION: sob COMPARISON: February 24, 2024 FINDINGS: The cardiac silhouette is moderately enlarged. There is mild prominence ofthe central pulmonary vasculature and interstitial lung markings. A small layering right pleural effusion is also seen. No pneumothorax is identified. A left subclavian vein approach multi lead pacer/ICD is redemonstrated. IMPRESSION: 1. Enlarged cardiac silhouette with interstitial pulmonary edema. 2. Small layering right pleural effusion with associated lower lobe airspace disease. LOCATION: B2 at 1149 Reported and signed by: Kashmir Schmidt M.D. CC: Lauro Lane MD; Skip Santos MD; Harrison Alvarez III, MD Technologist: CHERYL CURTIS Trnscrd Date/Time/By: 02/25/2024 (1149) : By: [email or web address] PAGE 1 Signed Report FAX: Lauro Philippe [phone] [place]: St: ADM FAX: Skip Galvan MD [phone] FAX: Harrison Plasencia III [phone] Name: WILLI MERRITT [facility] : 1950 Age/S: 73/M [address] [facility] [employer] Unit #: [id number] Loc: E.[address] [place], [place]: [place] [address] Acct: [id number] DisDate: Status: ADM IN PHONE #: [phone] Exam Date: 02/25/2024616 FAX #: [phone] Reason: sob EXAMS: CPT CODE: [id number] XR CHEST 1 V 60259 (Continued) Orig Print D/T: S: 02/25/2024 (1152) PAGE 2 Signed ReportBASIC METABOLIC [id number] 05:39:00* Test Item Value Reference Range Interpretation Comme nts SODIUM (test code = NA) 139 mmol/l 134.0-147.0 N POTASSIUM (test code = K) 3.7 mmol/L 3.6-5.2 N CHLORIDE (test code = CL) 97 mmol/l 98.0-107.0 L CARBON DIOXIDE (test code = CO2) 39.3 mmol/l 21.0-33.0 H ANION GAP (test code = GAP) 6.4 0-20 N GLUCOSE (test code = GLU) 78 mg/dl 70.0-110.0 N BLOOD UREA NITROGEN (test code = BUN) 19 mg/dl 7.0-18.0 H GLOMERULAR FILTRATION RATE (test code = GFR) 61 mL/min The Glomerular Filtration Rate is a calculated parameterbased on serum Creatinine, patient age and sex. GFR valuesless than 60 mL/min/1.73 square meters are indicative ofChronic Kidney Disease. Values less than 15 mL/min/1.73square meters indicate Kidney failure. The calculation forGFR is based on the CKD-EPI (202) calculation. This formulais race indifferent and is the recommended formula for GFRby the National Kidney Foundation for Adults.The GFR will not calculate if the sex is unknown or if thepatient's age is <18 years. CREATININE (test code = CREAT) 1.26 mg/dL 0.60-1.30 N ESTIMATED CREAT CLEARANCE (test code = ECRCL) 56 mL/min >30 CALCIUM (test code = CA) 8.3 mg/dl 8.0-10.5 N CBC W/AUTO [id number] 05:21:00* Test Item Value Reference Range Interpretation Comme nts WHITE BLOOD CELL (test code = WBC) 7.7 K/mm3 4.5-11.0 N RED BLOOD CELL (test code = RBC) 3.82 M/mm3 4.40-5.90 L HEMOGLOBIN (test code = HGB) 10.5 gm/dL 13.0-17.0 L HEMATOCRIT (test code = HCT) 36.3 % 36.0-48.0 N MEAN CELL VOLUME (test code = MCV) 95.0 UM3 80.0-94.0 H MEAN CELL HGB (test code = MCH) 27.5 UUG 25.5-32.5 N MEAN CELL HGB CONCETRATION (test code = MCHC) 28.9 gm/dL 29.0-35.5 L RED CELL DISTRIBUTION WIDTH (test code = RDW) 19.5 % 11.5-15.0 H RED CELL DISTRIBUTION WIDTH SD (test code = RDW-SD) 68.9 fL 34.8-50.2 H PLATELET COUNT (test code = PLT) 178 K/mm3 150-400 N MEAN PLATELET VOLUME (test c ode = MPV) 11.7 fl 7.4-10.4 H NEUTROPHIL % (test code = NT%) 71.1 % 49.0-76.0 N IMMATURE GRANULOCYTE % (test code = IG%) 0.4 % 0.0-0.4 N LYMPHOCYTE % (test code = LY%) 16.3 % 23.0-38.0 L MONOCYTE % (test code = MO%) 10.0 % 1.0-10.0 N EOSINOPHIL % (test code = EO%) 1.9 % 1.0-5.0 N BASOPHIL % (test code = BA%) 0.3 % 0.0-1.0 N NUCLEATED RBC % (test code = NRBC%) 0.0 % 0.0-0.1 N NEUTROPHIL # (test code = NT#) 5.5 K/mm3 2.4-6.3 N IMMATURE GRANULOCYTE # (test code = IG#) 0.03 x10 3/uL 0.00-0.07 N LYMPHOCYTE # (test code = LY#) 1.3 K/mm3 1.2-4.0 N MONOCYTE # (test code = MO#) 0.8 K/mm3 0.0-0.6 H EOSINOPHIL # (test code = EO#) 0.2 K/MM3 0.0-0.7 N BASOPHIL # (test code = BA#) 0.0 K/mm3 0.0-0.2 N NUCLEATED RBC # (test code = NRBC#) 0.00 X10 3uL 0.00-0.01 N [id number] 20:25:00* Test Item Value Reference Range Interpretation Comme nts GLUBED (test code = GLUBED) 259 mg/dL 70-110 H [id number] 15:38:00* Test Item Value Reference Range Interpretation Comme nts GLUBED (test code = GLUBED) 150 mg/dL 70-110 H [id number] 11:32:00* Test Item Value Reference Range Interpretation Comme nts GLUBED (test code = GLUBED) 128 mg/dL 70-110 H - XR CHEST 1 [id number] 10:41:00 [facility] [place] : 1950 Sex: M FAX: Lauro Philippe [phone] [place]: St: [facility] FAX: Skip Galvan MD [phone] FAX: Harrison Plasencia III [phone] Name: WILLI MERRITT [facility] : 1950 Age/S: 73/M [address] [facility] Unit #: [id number] Loc: E.432 [place], [place]: [place] [address] Acct: [id number] Dis Date: Status: ADM IN PHONE #: [phone] Exam Date: 02/24/2024721 FAX #: [phone] Reason: sob EXAMS: CPT CODE: [id number] XR CHEST 1 V 68152 EXAM: - XR CHEST 1 V CLINICAL HISTORY: sob TECHNIQU E: Single frontal view. COMPARISON: Chest radiograph 02/22/2024 LOCATION: C4 FINDINGS: Left chest wall 3-lead defibrillator again noted. The trachea appears normal. The mediastinum and cardiac silhouette are within the upper limits for normal size. Signs of mild vascular congestion and central pulmonary edema. Small right pleural effusion noted. Visualized soft tissues and osseous structures are grossly unremarkable. IMPRESSION: Unchanged signs of mild volume overload. Small right pleural effusion. at 1041 Reported and signed by: Davis Humphreys M.D. CC: Lauro Lane MD; Skip Santos MD; Harrison Alvarez III, MD Technologist: HALINA MEDINA Trnscrd Date/Time/By: 02/24/2024 (1041) : By: [email or web address] PAGE 1 Signed Report FAX: Lauro Philippe [phone] [place]: St: [facility] FAX: Skip Galvan MD [phone] FAX: Rosalind Plasencia III [phone] Name: WILLI MERRITT [facility] : 1950 Age/S: 73/M [address] [email or web address] Unit #: [id number] Loc: E.432 [place], [place]: [place] [address] Acct: [id number] Dis Date: Status: ADM IN PHONE #: [phone] Exam Date: 02/24/2024721 FAX #: [phone] Reason: sob EXAMS: CPT CODE: [id number] XR CHEST 1 V 31004 (Continued) Orig Print D/T: S: 02/24/2024 (1044) PAGE 2 Signed [id number] 07:14:00* Test Item Value Reference Range Interpretation Comme nts GLUBED (test code = GLUBED) 147 mg/dL 70-110 H BASIC METABOLIC [id number] 06:51:00* Test Item Value Reference Range Interpretation Comme nts SODIUM (test code = NA) 140 mmol/l 134.0-147.0 N POTASSIUM (test code = K) 3.3 mmol/L 3.6-5.2 L CHLORIDE (test code = CL) 97 mmol/l 98.0-107.0 L CARBON DIOXIDE (test code = CO2) 38.7 mmol/l 21.0-33.0 H ANION GAP (test code = GAP) 7.6 0-20 N GLUCOSE (test code = GLU) 143 mg/dl 70.0-110.0 H BLOOD UREA NITROGEN (test code = BUN) 20 mg/dl 7.0-18.0 H GLOMERULAR FILTRATION RATE (test code = GFR) 56 mL/min The Glomerular Filtration Rate is a calculated parameterbased on serum Creatinine, patient age and sex. GFR valuesless than 60 mL/min/1.73 square meters are indicative ofChronic Kidney Disease. Values less than 15 mL/min/1.73square meters indicate Kidney failure. The calculation forGFR is based on the CKD-EPI (2020) calculation. This formulais race indifferent and is the recommended formula for GFRby the National Kidney Foundation for Adults.The GFR will not calculate if the sex is unknown or if thepatient's age is <18 years. CREATININE (test code = CREAT) 1.36 mg/dL 0.60-1.30 H ESTIMATED CREAT CLEARANCE (test code = ECRCL) 51 mL/min >30 CALCIUM (test code = CA) 8.4 mg/dl 8.0-10.5 N THYROID STIMULATING [id number] 06:51:00* Test Item Value Reference Range Interpretation Comme nts THYROID STIMULATING HORMONE (test code = TSH) 1.80 IU/ML 0.47-5.01 N Result is in International Units/milliliter CBC W/AUTO [id number] 06:10:00* Test Item Value Reference Range Interpretation Comme nts WHITE BLOOD CELL (test code = WBC) 9.0 K/mm3 4.5-11.0 N RED BLOOD CELL (test code = RBC) 3.96 M/mm3 4.40-5.90 L HEMOGLOBIN (test code = HGB) 11.0 gm/dL 13.0-17.0 L HEMATOCRIT (test code = HCT) 37.9 % 36.0-48.0 N MEAN CELL VOLUME (test code = MCV) 95.7 UM3 80.0-94.0 H MEAN CELL HGB (test code = MCH) 27.8 UUG 25.5-32.5 N MEAN CELL HGB CONCETRATION (test code = MCHC) 29.0 gm/dL 29.0-35.5 N RED CELL DISTRIBUTION WIDTH (test code = RDW) 19.8 % 11.5-15.0 H RED CELL DISTRIBUTION WIDTH SD (test code = RDW-SD) 69.4 fL 34.8-50.2 H PLATELET COUNT (test code = PLT) 178 K/mm3 150-400 N MEAN PLATELET VOLUME (test c ode = MPV) 11.5 fl 7.4-10.4 H NEUTROPHIL % (test code = NT%) 74.9 % 49.0-76.0 N IMMATURE GRANULOCYTE % (test code = IG%) 0.4 % 0.0-0.4 N LYMPHOCYTE % (test code = LY%) 13.7 % 23.0-38.0 L MONOCYTE % (test code = MO%) 8.9 % 1.0-10.0 N EOSINOPHIL % (test code = EO%) 1.9 % 1.0-5.0 N BASOPHIL % (test code = BA%) 0.2 % 0.0-1.0 N NUCLEATED RBC % (test code = NRBC%) 0.0 % 0.0-0.1 N NEUTROPHIL # (test code = NT#) 6.7 K/mm3 2.4-6.3 H IMMATURE GRANULOCYTE # (test code = IG#) 0.04 x10 3/uL 0.00-0.07 N LYMPHOCYTE # (test code = LY#) 1.2 K/mm3 1.2-4.0 N MONOCYTE # (test code = MO#) 0.8 K/mm3 0.0-0.6 H EOSINOPHIL # (test code = EO#) 0.2 K/MM3 0.0-0.7 N BASOPHIL # (test code = BA#) 0.0 K/mm3 0.0-0.2 N NUCLEATED RBC # (test code = NRBC#) 0.00 X10 3uL 0.00-0.01 N [id number] 02:01:00* Test Item Value Reference Range Interpretation Comme nts GLUBED (test code = GLUBED) 211 mg/dL 70-110 H [id number] 16:46:00* Test Item Value Reference Range Interpretation Comme nts GLUBED (test code = GLUBED) 175 mg/dL 70-110 H [id number] 01:23:00* Test Item Value Reference Range Interpretation Comme nts GLUBED (test code = GLUBED) 165 mg/dL 70-110 H - XR CHEST 1 [id number] 21:01:00 [facility] [place] : 1950 Sex: M FAX: Kevin Houston MD [place]: St: REG Name: WILLI MERRITT [facility] : 1950 Age/S: 73/M [address] Unit #: [id number] Loc: [address] Phys: [place] [id number] Acct: [id number] Dis Date: Status: REG ER PHONE #: [phone] Exam Date: 02/22/20242035 FAX #: [phone] Reason: SOB EXAMS: CPT CODE: [id number] XR CHEST 1 V 24144 EXAM: - XR CHEST 1 V HISTORY: Shortness of breath. COMPARISON: April 21, 2023. FINDINGS: Single AP view of the chest is provided. Heart size and vascularity are engorged. Cardiac pacemaker/AICD. There is no evidence of a focal consolidation. There is no pleural effusion or pneumothorax. There is no definite acute osseous abnormality. IMPRESSION: Mild pulmonary vascular congestion. Electronically Signed by Todd Evans on 02/22/2024 at 2101 Reported and signed by: Sunil Evans M.D. CC: Kevin Houston MD Technologist: SHABBIR DUBOIS Trnscrd Date/Time/By: 02/22/2024 (2100) : By: [email or web address] PAGE 1 Signed Report FAX: Kevin Houston MD [place]: St: REG Name: WILLI MERRITT [facility] : 1950 Age/S: 73/M [email or web address] [email or web address] Unit #: [id number] Loc: [facility] [place], [place] Phys: [place] [id number] Acct: [id number] Dis Date: Status: REG ER PHONE #: [phone] Exam Date: 02/22/20242035 FAX #: [phone] Reason: SOB EXAMS: CPT CODE: [id number] XR CHEST 1 V 48809 (Continued) Orig Print D/T:S: 02/22/2024 (2103) PAGE 2 Signed ReportBASIC METABOLIC [id number] 20:52:00* Test Item Value Reference Range Interpretation Comme nts SODIUM (test code = NA) 140 mmol/l 134.0-147.0 N POTASSIUM (test code = K) 5.1 mmol/L 3.6-5.2 N SLIGHT HEMOYLSIS CHLORIDE (test code = CL) 97 mmol/l 98.0-107.0 L CARBON DIOXIDE (test code = CO2) 37.6 mmol/l 21.0-33.0 H ANION GAP (test code = GAP) 10.5 0-20 N GLUCOSE (test code = GLU) 206 mg/dl 70.0-110.0 H BLOOD UREA NITROGEN (test code = BUN) 13 mg/dl 7.0-18.0 N GLOMERULAR FILTRATION RATE (test code = GFR) 50 mL/min The Glomerular Filtration Rate is a calculated parameterbased on serum Creatinine, patient age and sex. GFR valuesless than 60 mL/min/1.73 square meters are indicative ofChronic Kidney Disease. Values less than 15 mL/min/1.73square meters indicate Kidney failure. The calculation forGFR is based on the CKD-EPI (2020) calculation. This formulais race indifferent and is the recommended formula for GFRby the National Kidney Foundation for Adults.The GFR will not calculate if the sex is unknown or if thepatient's age is <18 years. CREATININE (test code = CREAT) 1.48 mg/dL 0.60-1.30 H ESTIMATED CREAT CLEARANCE (test code = ECRCL) 43 mL/min >30 CALCIUM (test code = CA) 8.8 mg/dl 8.0-10.5 N [id number] 20:52:00* Test Item Value Reference Range Interpretation Comme nts MAGNESIUM (test code = MAG) 1.8 mg/dl 1.8-2.4 N TROP-I HIGH [id number] 20:52:00* Test Item Value Reference Range Interpretation Comme [facility] TROP-I HIGH SENSITIVITY (test code = TROPIHS) 51 ng/L 0-76 N CAUTION: Units o f the current TROPI-HS test methodology(ng/L) differ from the prior test methodology (ng/mL) by afactor of 1000. 99th Percentile: Females: 0 - 51 ng/L Males: 0 - 76 ng/LThese results were obtained using Ichiba TnIHreagent. Results from different methodologies should not becompared to one another as quantitative results may vary bymethod. B-TYPE NATRIURETIC [id number] 20:49:00* Test Item Value Reference Range Interpretation Comme [facility] B-TYPE NATRIURETIC PEPTIDE ( test code = BNP) 492 PG/ML 5-100 H VENOUS BLOOD [id number] 20:46:00* Test Item Value Reference Range Interpretation Comme [facility] VENOUS BLOOD GAS PH (test co de = PHV) 7.395 VENOUS BLOOD GAS PCO2 (test code = PCO2V) 64.0 MMHG VENOUS BLOOD GAS PO2 (test c ode = PO2V) 41.8 MMHG 10.0-50.0 N VBG HCO3 (test code = HCO3V) 38.3 MMOL/L 22.0-27.0 H VBG BASE EXCESS (test code = EMILIA) 11.0 MMOL/L -4.0-4.0 H VENOUS BLOOD GAS O2 SAT. (te st code = O2SATV) 75.6 % 60.0-80.0 N VENOUS BLOOD GAS FIO2 (test code = FIO2V) 100.0 CBC W/AUTO [id number] 20:35:00* Test Item Value Reference Range Interpretation Comme [facility] WHITE BLOOD CELL (test code = WBC) 10.1 K/mm3 4.5-11.0 N RED BLOOD CELL (test code = RBC) 4.09 M/mm3 4.40-5.90 L HEMOGLOBIN (test code = HGB) 11.3 gm/dL 13.0-17.0 L HEMATOCRIT (test code = HCT) 38.5 % 36.0-48.0 N MEAN CELL VOLUME (test code = MCV) 94.1 UM3 80.0-94.0 H MEAN CELL HGB (test code = MCH) 27.6 UUG 25.5-32.5 N MEAN CELL HGB CONCETRATION (test code = MCHC) 29.4 gm/dL 29.0-35.5 N RED CELL DISTRIBUTION WIDTH (test code = RDW) 19.9 % 11.5-15.0 H RED CELL DISTRIBUTION WIDTH SD (test code = RDW-SD) 69.0 fL 34.8-50.2 H PLATELET COUNT (test code = PLT) 205 K/mm3 150-400 N MEAN PLATELET VOLUME (test c ode = MPV) 11.4 fl 7.4-10.4 H NEUTROPHIL % (test code = NT%) 83.2 % 49.0-76.0 H IMMATURE GRANULOCYTE % (test code = IG%) 0.7 % 0.0-0.4 H LYMPHOCYTE % (test code = LY%) 7.4 % 23.0-38.0 L MONOCYTE % (test code = MO%) 8.1 % 1.0-10.0 N EOSINOPHIL % (test code = EO%) 0.3 % 1.0-5.0 L BASOPHIL % (test code = BA%) 0.3 % 0.0-1.0 N NUCLEATED RBC % (test code = NRBC%) 0.0 % 0.0-0.1 N NEUTROPHIL # (test code = NT#) 8.4 K/mm3 2.4-6.3 H IMMATURE GRANULOCYTE # (test code = IG#) 0.07 x10 3/uL 0.00-0.07 N LYMPHOCYTE # (test code = LY#) 0.8 K/mm3 1.2-4.0 L MONOCYTE # (test code = MO#) 0.8 K/mm3 0.0-0.6 H EOSINOPHIL # (test code = EO#) 0.0 K/MM3 0.0-0.7 N BASOPHIL # (test code = BA#) 0.0 K/mm3 0.0-0.2 N NUCLEATED RBC # (test code = NRBC#) 0.00 X10 3uL 0.00-0.01 N GLUCOSE [id number] 19:52:00* Test Item Value Reference Range Interpretation Comme nts GLUCOSE BEDSIDE (test code = GLUBED) 189 MG/DL 70-110 H Performed by cer tified rotary dump operator at [facility] GLUCOSE [id number] 11:47:00* Test Item Value Reference Range Interpretation Comme nts GLUCOSE BEDSIDE (test code = GLUBED) 126 MG/DL 70-110 H Performed by cer tified rotary dump operator at [facility] GLUCOSE [id number] 07:54:00* Test Item Value Reference Range Interpretation Comme nts GLUCOSE BEDSIDE (test code = GLUBED) 115 MG/DL 70-110 H Performed by cer tified rotary dump operator at [facility] GLUCOSE [id number] 19:31:00* Test Item Value Reference Range Interpretation Comme nts GLUCOSE BEDSIDE (test code = GLUBED) 205 MG/DL 70-110 H Performed by cer tified rotary dump operator at [facility] GLUCOSE [id number] 18:10:00* Test Item Value Reference Range Interpretation Comme nts GLUCOSE BEDSIDE (test code = GLUBED) 169 MG/DL 70-110 H Performed by cer tified rotary dump operator at [facility] GLUCOSE [id number] 12:16:00* Test Item Value Reference Range Interpretation Comme nts GLUCOSE BEDSIDE (test code = GLUBED) 152 MG/DL 70-110 H Performed by cer tified rotary dump operator at [facility] BASIC METABOLIC [id number] 07:38:00* Test Item Value Reference Range Interpretation Comme nts SODIUM (test code = NA) 137 mEq/L 134-147 N POTASSIUM (test code = K) 3.8 mEq/L 3.4-5.0 N CHLORIDE (test code = CL) 101 mEq/L 100-108 N CARBON DIOXIDE (test code = CO2) 33 mEq/l 21-33 N ANION GAP (test code = GAP) 7 0-20 N GLUCOSE (test code = GLU) 179 mg/dL 70-110 H BLOOD UREA NITROGEN (test code = BUN) 20 mg/dL 7-18 H GLOMERULAR FILTRATION RATE (test code = GFR) 59.1 70-80 L The Glomerular Filtration Rate is a calculated parameterbased on serum Creatinine, patient age and sex. GFR valuesless than 60 mL/min/1.73 square meters are indicative ofChronic Kidney Disease. Values less than 15 mL/min/1.73square meters indicate Kidney failure. The calculation forGFR is based on the CKD-EPI (2020) calculation. This formulais race indifferent and is the recommended formula for GFRby the National Kidney Foundation for Adults.The GFR will not calculate if the sex is unknown or if thepatient's age is <18 years. CREATININE (test code = CREAT) 1.3 mg/dL 0.6-1.3 N CALCIUM (test code = CA) 8.9 mg/dL 8.0-10.5 N GLUCOSE [id number] 07:35:00* Test Item Value Reference Range Interpretation Comme nts GLUCOSE BEDSIDE (test code = GLUBED) 171 MG/DL 70-110 H Performed by [facility] tified rotary dump operator at [facility] GLUCOSE [id number] 20:00:00* Test Item Value Reference Range Interpretation Comme nts GLUCOSE BEDSIDE (test code = GLUBED) 128 MG/DL 70-110 H Performed by [facility] Adsame rotary dump operator at [facility] GLUCOSE [id number] 15:57:00* Test Item Value Reference Range Interpretation Comme nts GLUCOSE BEDSIDE (test code = GLUBED) 58 MG/DL 70-110 L Performed by [facility] Adsame rotary dump operator at [facility] GLUCOSE [id number] 13:09:00* Test Item Value Reference Range Interpretation Comme nts GLUCOSE BEDSIDE (test code = GLUBED) 112 MG/DL 70-110 H Performed by [facility] Adsame rotary dump operator at [facility] GLUCOSE [id number] 08:15:00* Test Item Value Reference Range Interpretation Comme nts GLUCOSE BEDSIDE (test code = GLUBED) 47 MG/DL 70-110 L Performed by [facility] Adsame rotary dump operator at [facility] - CTA CHEST FOR [id number] 00:00:00 [facility] 1950 Sex: M Name: [facility] : 1950 Age/S: 72 / M [address] [place] [address] Blvd Unit #: [id number] Loc: [place] [address] Phys: Yaquelin Francis MD Acct: [id number] Dis Date: Status: ADM IN PHONE #: [phone] Exam Date: 04/24/2023 09 FAX #: [phone] Reason: hypixia, elevated D-dimer EXAMS: CPT CODE: [id number] [place] [id number] PROCEDURE INFORMATION: Exam: CTA Chest With Contrast Exam date and time: 04/24/2023 9:03 AM Age: 72 years old Clinical indication: Other: Hypixia, elevated d-dimer TECHNIQUE: Imaging protocol: Computed tomographic angiography of the chest with contrast. Exam focused on the arteries. 3D rendering (Not supervised by radiologist): MIP and/or 3D recon structed images were created by the technologist. Radiation optimization: All CT scans at this facility use at least one of these dose optimization techniques: automated exposure control; mA and/or kV adjustment per patient size (includes targeted exams where dose is matched to clinical indication); or iterative reconstruction. Contrast material: ISO; Contrast volume: 100 ml; Contrast route: INTRAVENOUS (IV); REPORTING DATA: Count of CT and Cardiac NM exams in prior 12 months: This patient has received 0 known CTs and 0 known cardiac nuclear medicine studies in the 12 months prior to the current study. COMPARISON: CR XR CHEST 1V 04/21/2023 5:32 AM FINDINGS: Pulmonary arteries: Normal. No pulmonary emboli. Aorta: Unremarkable. No aortic aneurysm. No aortic dissection. Lungs: There are postsurgical changes in the right lung. Bibasilar atelectasis. Posterior right upper lobe airspace disease. No masses. Pleural spaces: Unremarkable. No pneumothorax. No pleural effusion. Heart: AICD in place. Coronary artery disease status post stenting. No cardiomegaly. No pericardial effusion. Lymph nodes: Unremarkable. No enlarged lymph nodes. Bones/joints: Multilevel degenerative changes of the spine. No acute fracture. Soft tissues: Unremarkable. IMPRESSION: 1. No pulmonary embolism. 2. Posterior right upper lobe airspace disease may represent atelectasis, aspiration or pneumonia. 3. Coronaryartery disease. PAGE 1 Signed Report (CONTINUED) Name: WILLI MERRITT [facility] : 1950 Age/S: 72 / M [address] [place] [address] Blvd Unit #: [id number] Loc: [place] [address] Phys: Yaquelin Francis MD Acct: [id number] Dis Date: Status: ADM IN PHONE #: [phone] Exam Date: 04/24/2023905 FAX #: [phone] Reason: hypixia, elevated D-dimer EXAMS: CPT CODE: [id number] [place] [id number] (Continued) at 0940 Reported and signed by: Boone Somers M.D. CC: Marcela Samuel MD; Yaquelin Francis MD Technologist:Angela Zeng,RT(R); Lenora CTDI: DLP: Trnscb Date/Time: 04/24/2023 (939) [email or web address] Orig Print D/T: S: (939) PAGE 2 Signed ReportGLUCOSE [id number] 19:37:00* Test Item Value Reference Range Interpretation Comme [facility] GLUCOSE BEDSIDE (test code = GLUBED) 159 MG/DL 70-110 H Performed by [facility] Adsame rotary dump operator at [facility] GLUCOSE [id number] 16:27:00* Test Item Value Reference Range Interpretation Comme [facility] GLUCOSE BEDSIDE (test code = GLUBED) 122 MG/DL 70-110 H Performed by [facility] Adsame rotary dump operator at [facility] BASIC METABOLIC [id number] 12:32:00* Test Item Value Reference Range Interpretation Comme nts SODIUM (test code = NA) 139 mEq/L 134-147 N POTASSIUM (test code = K) 3.5 mEq/L 3.4-5.0 CHLORIDE (test code = CL) 100 mEq/L 100-108 N CARBON DIOXIDE (test code = CO2) 34 mEq/l 21-33 H ANION GAP (test code = GAP) 9 0-20 N GLUCOSE (test code = GLU) 81 mg/dL 70-110 BLOOD UREA NITROGEN (test code = BUN) 20 mg/dL 7-18 H GLOMERULAR FILTRATION RATE (test code = GFR) 59.1 70-80 L The Glomerular Filtration Rate is a calculated parameterbased on serum Creatinine, patient age and sex. GFR valuesless than 60 mL/min/1.73 square meters are indicative ofChronic Kidney Disease. Values less than 15 mL/min/1.73square meters indicate Kidney failure. The calculation forGFR is based on the CKD-EPI (202) calculation. This formulais race indifferent and is the recommended formula for GFRby the National Kidney Foundation for Adults.The GFR will not calculate if the sex is unknown or if thepatient's age is <18 years. CREATININE (test code = CREAT) 1.3 mg/dL 0.6-1.3 N CALCIUM (test code = CA) 9.0 mg/dL 8.0-10.5 N CBC W/AUTO [id number] 12:00:00* Test Item Value Reference Range Interpretation Comme nts WHITE BLOOD CELL (test code = WBC) 7.2 x10 3/uL 4.5-11.0 N RED BLOOD CELL (test code = RBC) 4.05 x10 6/uL 4.00-5.60 N HEMOGLOBIN (test code = HGB) 12.2 g/dL 12.5-16.9 L HEMATOCRIT (test code = HCT) 40.7 % 37.5-50.7 N MEAN CELL VOLUME (test code = MCV) 100.5 fL 81.0-99.0 H MEAN CELL HGB (test code = MCH) 30.1 pg 27.0-33.0 N MEAN CELL HGB CONCETRATION (test code = MCHC) 30.0 g/dL 33.0-37.0 L RED CELL DISTRIBUTION WIDTH CV (test code = RDW) 15.3 % 11.5-14.5 H RED CELL DISTRIBUTION WIDTH SD (test code = RDW-SD) 55.5 fL 37.0-54.0 H PLATELET COUNT (test code = PLT) 233 x10 3/uL 150-400 N MEAN PLATELET VOLUME (test c ode = MPV) 11.5 fL 7.0-9.0 H NEUTROPHIL % (test code = NT%) 65.5 % 56.0-77.0 N IMMATURE GRANULOCYTE % (test code = IG%) 0.4 % 0.0-2.0 N LYMPHOCYTE % (test code = LY%) 19.3 % 14.0-32.0 N MONOCYTE % (test code = MO%) 11.6 % 4.8-9.0 H EOSINOPHIL % (test code = EO%) 2.8 % 0.3-3.7 N BASOPHIL % (test code = BA%) 0.4 % 0.0-2.0 N NUCLEATED RBC % (test code = NRBC%) 0.0 % 0-0 N NEUTROPHIL # (test code = NT#) 4.74 x10 3/uL 2.0-7.6 N IMMATURE GRANULOCYTE # (test code = IG#) 0.03 x10 3/uL 0.00-0.03 N LYMPHOCYTE # (test code = LY#) 1.40 x10 3/uL 1.0-3.8 N MONOCYTE # (test code = MO#) 0.84 x10 3/uL 0.1-0.8 H EOSINOPHIL # (test code = EO#) 0.20 x10 3/uL 0.0-0.2 N BASOPHIL # (test code = BA#) 0.03 x10 3/uL 0.0-0.2 N NUCLEATED RBC # (test code = NRBC#) 0.00 x10 3/uL 0.0-0.1 N MANUAL DIFF REQUIRED (test c ode = MDIFF) NO GLUCOSE [id number] 11:39:00* Test Item Value Reference Range Interpretation Comme nts GLUCOSE BEDSIDE (test code = GLUBED) 82 MG/DL 70-110 N Performed by cer tified rotary dump operator at [facility] GLUCOSE [id number] 07:42:00* Test Item Value Reference Range Interpretation Comme nts GLUCOSE BEDSIDE (test code = GLUBED) 202 MG/DL 70-110 H Performed by cer tified rotary dump operator at [facility] GLUCOSE [id number] 19:51:00* Test Item Value Reference Range Interpretation Comme nts GLUCOSE BEDSIDE (test code = GLUBED) 179 MG/DL 70-110 H Performed by cer tified rotary dump operator at [facility] GLUCOSE [id number] 17:46:00* Test Item Value Reference Range Interpretation Comme [facility] GLUCOSE BEDSIDE (test code = GLUBED) 140 MG/DL 70-110 H Performed by cer tified rotary dump operator at [facility] BASIC METABOLIC [id number] 17:03:00* Test Item Value Reference Range Interpretation Comme nts SODIUM (test code = NA) 136 mEq/L 134-147 N POTASSIUM (test code = K) 5.1 mEq/L 3.4-5.0 H CHLORIDE (test code = CL) 100 mEq/L 100-108 N CARBON DIOXIDE (test code = CO2) 32 mEq/l 21-33 N ANION GAP (test code = GAP) 9 0-20 N GLUCOSE (test code = GLU) 116 mg/dL 70-110 H BLOOD UREA NITROGEN (test code = BUN) 15 mg/dL 7-18 N GLOMERULAR FILTRATION RATE (test code = GFR) 59.1 70-80 L The Glomerular Filtration Rate is a calculated parameterbased on serum Creatinine, patient age and sex. GFR valuesless than 60 mL/min/1.73 square meters are indicative ofChronic Kidney Disease. Values less than 15 mL/min/1.73square meters indicate Kidney failure. The calculation forGFR is based on the CKD-EPI (202) calculation. This formulais race indifferent and is the recommended formula for GFRby the National Kidney Foundation for Adults.The GFR will not calculate if the sex is unknown or if thepatient's age is <18 years. CREATININE (test code = CREAT) 1.3 mg/dL 0.6-1.3 N CALCIUM (test code = CA) 9.3 mg/dL 8.0-10.5 N POC ARTERIAL BLOOD [id number] 13:05:00* Test Item Value Reference Range Interpretation Comme nts POC ARTERIAL BLOOD GAS PH (t est code = POCPHA) 7.350 7.35-7.45 N POC ARTERIAL BLOOD GAS PCO2 (test code = TNHNNC4D) 64.3 mmHg 35.0-45 HH POC TCO2 ARTERIAL (test code = POCTCO2) 37.5 POC ARTERIAL BLOOD GAS PO2 ( test code = RRZYO4G) 54.1 mmHg 80-100.0 L POC HCO3 ARTERIAL (test code = LZIJUW9K) 35.5 MMOL/L 22.0-26.0 HH POC BASE EXCESS (test code = POCBEA) 9.9 MMOL/L -4.0-4.0 H POC O2 SATURATION (test code = POCO2S) 84.7 % 90-100 L ABG DELIVERY (test code = JOE) HFNC ABG SITE (test code = SITEA) R Radial KATHE'S TEST (test code = ALLENS) Positive GLUCOSE [id number] 12:33:00* Test Item Value Reference Range Interpretation Comme nts GLUCOSE BEDSIDE (test code = GLUBED) 166 MG/DL 70-110 H Performed by cer tified rotary dump operator at [facility] FLUID [id number] 12:15:00* Test Item Value Reference Range Interpretation Comme nts FLUID CO2 (test code = CO2BF) 36 21-33 H FLUID [id number] 12:14:00* Test Item Value Reference Range Interpretation Comme nts FLUID CO2 (test code = CO2BF) 36 21-33 H GLUCOSE [id number] 08:13:00* Test Item Value Reference Range Interpretation Comme nts GLUCOSE BEDSIDE (test code = GLUBED) 152 MG/DL 70-110 H Performed by cer tified rotary dump operator at [facility] GLUCOSE [id number] 21:08:00* Test Item Value Reference Range Interpretation Comme nts GLUCOSE BEDSIDE (test code = GLUBED) 77 MG/DL 70-110 N Performed by cer tified rotary dump operator at [facility] GLUCOSE [id number] 19:59:00* Test Item Value Reference Range Interpretation Comme nts GLUCOSE BEDSIDE (test code = GLUBED) 47 MG/DL 70-110 L Performed by cer tified rotary dump operator at [facility] POC ARTERIAL BLOOD [id number] 18:11:00* Test Item Value Reference Range Interpretation Comme nts POC ARTERIAL BLOOD GAS PH (t est code = POCPHA) 7.358 7.35-7.45 N POC ARTERIAL BLOOD GAS PCO2 (test code = FWOLKN8J) 88.4 mmHg 35.0-45 HH POC TCO2 ARTERIAL (test code = POCTCO2) > 50.0 POC ARTERIAL BLOOD GAS PO2 ( test code = JOARV6X) 93.8 mmHg 80-100.0 N POC HCO3 ARTERIAL (test code = GKUDLM7P) 49.8 MMOL/L 22.0-26.0 HH POC BASE EXCESS (test code = POCBEA) 24.3 MMOL/L -4.0-4.0 H POC O2 SATURATION (test code = POCO2S) 96.2 % 90-100 N FIO2 (test code = FIO2A) 60 % PaO2/FiO2 (test code = KIK2BZP0) 156.33 mm/Hg ABG DELIVERY (test code = JOE) BiPAP ABG VENT MODE (test code = MODEA) BiLevel ABG VENT RESP RATE (test cod e = RRA) 22 /MIN ABG PEEP (test code = PEEPA) 8 cmH2O ABG PRESSURE SUPPORT (test c ode = PSABG) 22 cmH2O ABG SITE (test code = SITEA) R Radial KATHE'S TEST (test code = ALLENS) Positive [id number] 17:59:00* Test Item Value Reference Range Interpretation Comme nts D-DIMER (test code = DDIMER) 1081 ng/mlFEU See_Comment HH Critical result called to DONALD BILLS at 1756 04/21/23Nurse read back result and tech confirmed it's correct? YTHROMBOSIS AND/OR PULMONARY EMBOLISM AND THE CLINICAL CUT- OFF VALUE FOR EXCLUSION (500 ng/mL FEU) OF THESE CONDITIONSIS VALIDATED BY THE J2EE JAVA DEVELOPER OF THE METHOD. A NEGATIVE D-DIMER RESULT WHEN COMBINED WITH A CLINICALASSESSMENT OF LOW PRETEST PROBABILITY HAS BEEN SHOWN TO HAVEA HIGH NEGATIVE PREDICTIVE VALUE OF DVT OR PE. D-DIMER VALUES >500 ng/mL FEU ARE NOT DIAGNOSTIC FOR DVT, PEor DIC WITHOUT OTHER CONFIRMATORY TESTS AND APPROPRIATECLINICAL EUALUATIONS. [Automated message] The system which generated this result transmitted reference range: <=500. The reference range was not used to interpret this result as normal/abnormal. POC ARTERIAL BLOOD [id number] 17:09:00* Test Item Value Reference Range Interpretation Comme nts POC ARTERIAL BLOOD GAS PH (t est code = POCPHA) 7.374 7.35-7.45 N POC ARTERIAL BLOOD GAS PCO2 (test code = CZZDMP5V) 84.5 mmHg 35.0-45 HH POC TCO2 ARTERIAL (test code = POCTCO2) > 50.0 POC ARTERIAL BLOOD GAS PO2 ( test code = WGSYL8S) 74.5 mmHg 80-100.0 L POC HCO3 ARTERIAL (test code = CIEGOT2O) 49.3 MMOL/L 22.0-26.0 HH POC BASE EXCESS (test code = POCBEA) 24.1 MMOL/L -4.0-4.0 H POC O2 SATURATION (test code = POCO2S) 93.1 % 90-100 N FIO2 (test code = FIO2A) 60 % PaO2/FiO2 (test code = KAA4PPT7) 124.16 mm/Hg ABG DELIVERY (test code = JOE) BiPAP ABG VENT MODE (test code = MODEA) BiLevel ABG PEEP (test code = PEEPA) 8 cmH2O ABG PRESSURE SUPPORT (test c ode = PSABG) 22 cmH2O ABG SITE (test code = SITEA) R Radial KATHE'S TEST (test code = ALLENS) Positive BASIC METABOLIC [id number] 16:26:00* Test Item Value Reference Range Interpretation Comme nts SODIUM (test code = NA) 142 mEq/L 134-147 N POTASSIUM (test code = K) 4.3 mEq/L 3.4-5.0 N CHLORIDE (test code = CL) 99 mEq/L 100-108 L CARBON DIOXIDE (test code = CO2) > 40 mEq/l 21-33 H ANION GAP (test code = GAP) 7 0-20 N GLUCOSE (test code = GLU) 101 mg/dL 70-110 N BLOOD UREA NITROGEN (test code = BUN) 15 mg/dL 7-18 N GLOMERULAR FILTRATION RATE (test code = GFR) 72.2 70-80 N The Glomerular Filtration Rate is a calculated parameterbased on serum Creatinine, patient age and sex. GFR valuesless than 60 mL/min/1.73 square meters are indicative ofChronic Kidney Disease. Values less than 15 mL/min/1.73square meters indicate Kidney failure. The calculation forGFR is based on the CKD-EPI (2020) calculation. This formulais race indifferent and is the recommended formula for GFRby the National Kidney Foundation for Adults.The GFR will not calculate if the sex is unknown or if thepatient's age is <18 years. CREATININE (test code = CREAT) 1.1 mg/dL 0.6-1.3 N CALCIUM (test code = CA) 8.4 mg/dL 8.0-10.5 N [id number] 16:26:00* Test Item Value Reference Range Interpretation Comme nts MAGNESIUM (test code = MAG) 1.73 mg/dL 1.80-2.40 L [id number] 16:26:00* Test Item Value Reference Range Interpretation Comme nts AMMONIA (test code = AMM) 62 umol/L 11-35 H GLUCOSE [id number] 11:53:00* Test Item Value Reference Range Interpretation Comme nts GLUCOSE BEDSIDE (test code = GLUBED) 108 MG/DL 70-110 N Performed by cer adonay rotary dump operator at [facility] POC ARTERIAL BLOOD [id number] 04:43:00* Test Item Value Reference Range Interpretation Comme nts POC ARTERIAL BLOOD GAS PH (t est code = POCPHA) 7.355 7.35-7.45 N POC ARTERIAL BLOOD GAS PCO2 (test code = FZEXJI2A) 67.7 mmHg 35.0-45 HH POC TCO2 ARTERIAL (test code = POCTCO2) 39.9 POC ARTERIAL BLOOD GAS PO2 ( test code = PHFLD3J) 171.3 mmHg 80-100.0 H POC HCO3 ARTERIAL (test code = YPKSPZ1N) 37.8 MMOL/L 22.0-26.0 HH POC BASE EXCESS (test code = POCBEA) 12.3 MMOL/L -4.0-4.0 H POC O2 SATURATION (test code = POCO2S) 99.4 % 90-100 N FIO2 (test code = FIO2A) 100 % PaO2/FiO2 (test code = QML0XYM6) 171.30 mm/Hg ABG DELIVERY (test code = JOE) avaps ABG SITE (test code = SITEA) L Radial KATHE'S TEST (test code = ALLENS) Positive - DUP VEIN [id number] 00:00:00 [facility] 1950 Sex: M Name: WILLI MERRITT [facility] [place] : 1950 Age/S: 72 / M [address] [place] [address] Blvd Unit #: [id number] Loc: [place] [address] Phys: Yaquelin Francis MD Acct: [id number] Dis Date: Status: ADM INPHONE #: [phone] Exam Date: 04/21/20231720 FAX #: [phone] Reason: PE suspected EXAMS: CPT CODE: [id number] DUP VEIN PIO [id number] PROCEDURE INFORMATION: Exam: US Duplex Lower Extremity Veins, B ilateral Exam date and time: 04/21/2023 4:51 PM Age: 72 years old Clinical indication: Screening exam; Pe suspected TECHNIQUE: Imaging protocol: Real-time duplex ultrasound of the bilateral extremities with 2-D heller scale, color Doppler flow and spectral waveform analysis including responses to compression and other maneuvers (when performed) with image documentation. Complete exam focused on the lower extremity veins. COMPARISON: No relevant prior studies available. FINDINGS: Right deep veins: The common femoral, femoral, proximal profunda femoral and popliteal veins are patent without thrombus. Normal Doppler waveforms. Normal compressibility and/or augmentation response. Right superficialveins: Saphenofemoral junction is patent without thrombus. Left deep veins: The common femoral, femoral, proximal profunda femoral and popliteal veins are patent without thrombus. Normal Doppler waveforms. Normal compressibility and/or augmentation response. Left superficial veins: Saphenofemoral junction is patent without thrombus. Soft tissues: Edema both lower extremities. IMPRESSION: No deep vein thrombosis is seen in the visualized bilateral lower extremities. at 175 Reported and signed by: Juan Simpson M.D. CC: Marcela Samuel MD;Yaquelin Francis MD Technologist: Kadi Quiñones RDMS(AB) Trnscb Date/Time: 04/21/2023 (657) [id number] Orig Print D/T: S: 04/21/2023 (7875) Probe: PAGE 1 Signed Report- XR CHEST 1 [id number] 00:00:00 [facility] : 1950 Sex: M FAX: Marcela Gutierres MD [phone] [place]: St: ADM FAX: Ankush Van MD [phone] -------- Name: WILLI MERRITT [facility] Palmer : 1950 Age/S: 72/M [address] [place] [address] Unit #: [id number] Loc: [id number] [place] [address] Phys: Ankush Alexander MD Acct: [id number] Dis Date: Status: ADM IN PHONE #: [phone] Exam Date: 04/21/2023 0535 FAX #: [phone] Reason: sob EXAMS: CPT CODE: [id number] XR CHEST 1 V 63671 PROCEDURE INFORMATION: Exam: XR Chest Exam date and time: 04/21/2023 5:32 AM Age: 72 years old Clinical indication: Shortness of breath; Additional info: SOB TECHNIQUE: Imaging protocol: Radiologic exam of the chest. Views: 1 view. COMPARISON: CR XR CHEST 1V 04/17/2023 2:08 AM FINDINGS: Tubes, cath eters and devices: Stable implanted cardiac device. Lungs: Bilateral lung opacities have mildly increased. Pleural spaces: No pleural effusion. No pneumothorax. Heart/Mediastinum: The enlarged heart size is stable. Bones/joints: Stable. IMPRESSION: Mildly worsening lung opacities. at 0905 Reported and signed by: Mark Villanueva M.D. CC: Marcela Samuel MD; Ankush Alexander MD Technologist: RT Max[employer](August) Trnscrd Date/Time/By: 04/21/2023 (904) : By: [email or web address] Orig Print D/T: S: 04/21/2023 (904) PAGE 1 Signed ReportGLUCOSE [id number] 20:16:00* Test Item Value Reference Range Interpretation Comme [facility] GLUCOSE BEDSIDE (test code = GLUBED) 143 MG/DL 70-110 H Performed by [employer] rotary dump operator at [facility] POC ARTERIAL BLOOD [id number] 17:27:00* Test Item Value Reference Range Interpretation Comme [facility] POC ARTERIAL BLOOD GAS PH (t est code = POCPHA) 7.317 7.35-7.45 L POC ARTERIAL BLOOD GAS PCO2 (test code = TSADRM0L) 73.5 mmHg 35.0-45 HH POC TCO2 ARTERIAL (test code = POCTCO2) 39.9 POC ARTERIAL BLOOD GAS PO2 ( test code = DSKPO1X) 205.8 mmHg 80-100.0 HH POC HCO3 ARTERIAL (test code = JBUSFK9V) 37.6 MMOL/L 22.0-26.0 HH POC BASE EXCESS (test code = POCBEA) 11.5 MMOL/L -4.0-4.0 H POC O2 SATURATION (test code = POCO2S) 99.6 % 90-100 N ABG DELIVERY (test code = JOE) BiPAP ABG VENT MODE (test code = MODEA) avaps ABG SITE (test code = SITEA) L Radial KATHE'S TEST (test code = ALLENS) Positive GLUCOSE [id number] 15:36:00* Test Item Value Reference Range Interpretation Comme [facility] GLUCOSE BEDSIDE (test code = GLUBED) 189 MG/DL 70-110 H Performed by [employer] rotary dump operator at [facility] GLUCOSE [id number] 13:01:00* Test Item Value Reference Range Interpretation Comme nts GLUCOSE BEDSIDE (test code = GLUBED) 149 MG/DL 70-110 H Performed by cer tified rotary dump operator at [facility] GLUCOSE [id number] 08:04:00* Test Item Value Reference Range Interpretation Comme nts GLUCOSE BEDSIDE (test code = GLUBED) 192 MG/DL 70-110 H Performed by cer tified rotary dump operator at [facility] GLUCOSE [id number] 23:25:00* Test Item Value Reference Range Interpretation Comme nts GLUCOSE BEDSIDE (test code = GLUBED) 210 MG/DL 70-110 H Performed by cer tified rotary dump operator at [facility] GLUCOSE [id number] 17:16:00* Test Item Value Reference Range Interpretation Comme nts GLUCOSE BEDSIDE (test code = GLUBED) 138 MG/DL 70-110 H Performed by cer tified rotary dump operator at [facility] GLUCOSE [id number] 11:47:00* Test Item Value Reference Range Interpretation Comme nts GLUCOSE BEDSIDE (test code = GLUBED) 188 MG/DL 70-110 H Performed by cer tified rotary dump operator at [facility] BASIC METABOLIC [id number] 09:56:00* Test Item Value Reference Range Interpretation Comme nts SODIUM (test code = NA) 137 mEq/L 134-147 N POTASSIUM (test code = K) 4.6 mEq/L 3.4-5.0 N CHLORIDE (test code = CL) 99 mEq/L 100-108 L CARBON DIOXIDE (test code = CO2) 36 mEq/l 21-33 H ANION GAP (test code = GAP) 7 0-20 N GLUCOSE (test code = GLU) 172 mg/dL 70-110 H BLOOD UREA NITROGEN (test code = BUN) 14 mg/dL 7-18 GLOMERULAR FILTRATION RATE (test code = GFR) 54.1 70-80 L The Glomerular Filtration Rate is a calculated parameterbased on serum Creatinine, patient age and sex. GFR valuesless than 60 mL/min/1.73 square meters are indicative ofChronic Kidney Disease. Values less than 15 mL/min/1.73square meters indicate Kidney failure. The calculation forGFR is based on the CKD-EPI (202) calculation. This formulais race indifferent and is the recommended formula for GFRby the National Kidney Foundation for Adults.The GFR will not calculate if the sex is unknown or if thepatient's age is <18 years. CREATININE (test code = CREAT) 1.4 mg/dL 0.6-1.3 H CALCIUM (test code = CA) 8.6 mg/dL 8.0-10.5 N LIPID PROFILE (CORONARY RISK)2023-04-19 09:56:00* Test Item Value Reference Range Interpretation Comme nts TRIGLYCERIDES (test code = TRIG) 91 mg/dL 40-150 N CHOLESTEROL (test code = CHOL) 93 mg/dL <200 CHOLESTEROL/HDL RATIO (test code = CHOLHDL) 3.01 RATIO 3.43-4.97 L RISK ASSOCIATED WITH CHOL/HDL RATIOS: RISK MALE FEMALE1/2 AVERAGE 3.43 3.27AVERAGE 4.97 4.442X AVERAGE 9.55 7.053X AVERAGE 23.39 11.04 NOTE THAT THE REFERENCE VALUE IS RELATEDTO RISK LEVELS RECOMMENDED BY THE NATL.HEART, LUNG, AND BLOOD INST. HDL CHOLESTEROL (test code = HDL) 30.9 MG/DL 40-60 L Note change in REFERENCE RANGE due to change in REAGENT.HDL Interpretation < 40.0 mg/dL Low (undesirable, high risk)> 60.0 mg/dL High (desirable, low risk) Reference interval for healthy adults was established by theNational Cholesterol Education Program (NCEP). LIPOPROTEIN LDL (test code = LDL) 50.0 mg/dL 0-100 N <100 ABZPZMQ76 0-129 NEAR OPTIMAL/ABOVE [id number] HIGH>MW=281 VERY HIGH*Guidelines provided by the National Cholesterol EducationProgram Adult Treatment Panel III HGBA1C%2023-04-19 09:49:00* Test Item Value Reference Range Interpretation Comme nts HGBA1C% (test code = HGBA1C%) 10.5 %A1C 4.8-6.0 H GLUCOSE [id number] 07:46:00* Test Item Value Reference Range Interpretation Comme nts GLUCOSE BEDSIDE (test code = GLUBED) 225 MG/DL 70-110 H Performed by cer [employer] rotary dump operator at [facility] GLUCOSE [id number] 21:29:00* Test Item Value Reference Range Interpretation Comme nts GLUCOSE BEDSIDE (test code = GLUBED) 285 MG/DL 70-110 H Performed by cer [employer] rotary dump operator at [facility] GLUCOSE [id number] 16:28:00* Test Item Value Reference Range Interpretation Comme nts GLUCOSE BEDSIDE (test code = GLUBED) 290 MG/DL 70-110 H Performed by cer tified rotary dump operator at [facility] GLUCOSE [id number] 11:37:00* Test Item Value Reference Range Interpretation Comme nts GLUCOSE BEDSIDE (test code = GLUBED) 258 MG/DL 70-110 H Performed by cer tified rotary dump operator at [facility] TROP-I HIGH [id number] 06:24:00* Test Item Value Reference Range Interpretation Comme nts TROP-I HIGH SENSITIVITY (test code = TROPIHS) 9 ng/L 0-54 N CAUTION: Units o f the current test methodology (ng/L) differfrom the prior test methodology (ng/mL) by a factor of 1000. 99th Percentile Upper Reference Limit (URL): Females: 34 ng/LMales: 54 ng/L In order to distinguish acute elevations of high sensitivitytroponin from other clinical conditions, the FourthUniversal Definition of Myocardial Infarction stressesclinical assessment and the demonstration of a rise and/orfall in serial troponin results above the URL. These results were obtained using Siemens Brainscape IM TnIHreagent. Results from different methodologies should not becompared to one another as quantitative results and URLs mayvary by method. BASIC METABOLIC [id number] 06:23:00* Test Item Value Reference Range Interpretation Comme nts SODIUM (test code = NA) 138 mEq/L 134-147 N POTASSIUM (test code = K) 4.3 mEq/L 3.4-5.0 N CHLORIDE (test code = CL) 100 mEq/L 100-108 N CARBON DIOXIDE (test code = CO2) 36 mEq/l 21-33 H ANION GAP (test code = GAP) 7 0-20 N GLUCOSE (test code = GLU) 285 mg/dL 70-110 H BLOOD UREA NITROGEN (test code = BUN) 9 mg/dL 7-18 N GLOMERULAR FILTRATION RATE (test code = GFR) 65.1 70-80 L The Glomerular Filtration Rate is a calculated parameterbased on serum Creatinine, patient age and sex. GFR valuesless than 60 mL/min/1.73 square meters are indicative ofChronic Kidney Disease. Values less than 15 mL/min/1.73square meters indicate Kidney failure. The calculation forGFR is based on the CKD-EPI (202) calculation. This formulais race indifferent and is the recommended formula for GFRby the National Kidney Foundation for Adults.The GFR will not calculate if the sex is unknown or if thepatient's age is <18 years. CREATININE (test code = CREAT) 1.2 mg/dL 0.6-1.3 N CALCIUM (test code = CA) 8.1 mg/dL 8.0-10.5 N CBC W/AUTO [id number] 05:53:00* Test Item Value Reference Range Interpretation Comme nts WHITE BLOOD CELL (test code = WBC) 7.1 x10 3/uL 4.5-11.0 N RED BLOOD CELL (test code = RBC) 4.11 x10 6/uL 4.00-5.60 N HEMOGLOBIN (test code = HGB) 12.4 g/dL 12.5-16.9 L HEMATOCRIT (test code = HCT) 42.6 % 37.5-50.7 N MEAN CELL VOLUME (test code = MCV) 103.6 fL 81.0-99.0 H MEAN CELL HGB (test code = MCH) 30.2 pg 27.0-33.0 N MEAN CELL HGB CONCETRATION (test code = MCHC) 29.1 g/dL 33.0-37.0 L RED CELL DISTRIBUTION WIDTH CV (test code = RDW) 15.3 % 11.5-14.5 H RED CELL DISTRIBUTION WIDTH SD (test code = RDW-SD) 58.5 fL 37.0-54.0 H PLATELET COUNT (test code = PLT) 206 x10 3/uL 150-400 N MEAN PLATELET VOLUME (test c ode = MPV) 11.8 fL 7.0-9.0 H NEUTROPHIL % (test code = NT%) 73.1 % 56.0-77.0 N IMMATURE GRANULOCYTE % (test code = IG%) 0.3 % 0.0-2.0 N LYMPHOCYTE % (test code = LY%) 12.3 % 14.0-32.0 L MONOCYTE % (test code = MO%) 12.3 % 4.8-9.0 H EOSINOPHIL % (test code = EO%) 1.7 % 0.3-3.7 N BASOPHIL % (test code = BA%) 0.3 % 0.0-2.0 N NUCLEATED RBC % (test code = NRBC%) 0.0 % 0-0 N NEUTROPHIL # (test code = NT#) 5.19 x10 3/uL 2.0-7.6 N IMMATURE GRANULOCYTE # (test code = IG#) 0.02 x10 3/uL 0.00-0.03 N LYMPHOCYTE # (test code = LY#) 0.87 x10 3/uL 1.0-3.8 L MONOCYTE # (test code = MO#) 0.87 x10 3/uL 0.1-0.8 H EOSINOPHIL # (test code = EO#) 0.12 x10 3/uL 0.0-0.2 N BASOPHIL # (test code = BA#) 0.02 x10 3/uL 0.0-0.2 N NUCLEATED RBC # (test code = NRBC#) 0.00 x10 3/uL 0.0-0.1 N MANUAL DIFF REQUIRED (test c ode = MDIFF) NO B-TYPE NATRIURETIC [id number] 03:25:00* Test Item Value Reference Range Interpretation Comme nts B-TYPE NATRIURETIC PEPTIDE ( test code = BNP) 356.0 PG/ML 0-100 H TROP-I HIGH [id number] 02:42:00* Test Item Value Reference Range Interpretation Comme nts TROP-I HIGH SENSITIVITY (test code = TROPIHS) 12 ng/L 0-54 N CAUTION: Units o f the current test methodology (ng/L) differfrom the prior test methodology (ng/mL) by a factor of 1000. 99th Percentile Upper Reference Limit (URL): Females: 34 ng/LMales: 54 ng/L In order to distinguish acute elevations of high sensitivitytroponin from other clinical conditions, the FourthUniversal Definition of Myocardial Infarction stressesclinical assessment and the demonstration of a rise and/orfall in serial troponin results above the URL. These results were obtained using Siemens Atellica IM TnIHreagent. Results from different methodologies should not becompared to one another as quantitative results and URLs mayvary by method. CBC W/AUTO [id number] 02:32:00* Test Item Value Reference Range Interpretation Comme nts WHITE BLOOD CELL (test code = WBC) 6.7 x10 3/uL 4.5-11.0 N RED BLOOD CELL (test code = RBC) 4.22 x10 6/uL 4.00-5.60 N HEMOGLOBIN (test code = HGB) 12.5 g/dL 12.5-16.9 N HEMATOCRIT (test code = HCT) 42.2 % 37.5-50.7 N MEAN CELL VOLUME (test code = MCV) 100.0 fL 81.0-99.0 H MEAN CELL HGB (test code = MCH) 29.6 pg 27.0-33.0 N MEAN CELL HGB CONCETRATION (test code = MCHC) 29.6 g/dL 33.0-37.0 L RED CELL DISTRIBUTION WIDTH CV (test code = RDW) 15.7 % 11.5-14.5 H RED CELL DISTRIBUTION WIDTH SD (test code = RDW-SD) 56.6 fL 37.0-54.0 H PLATELET COUNT (test code = PLT) 199 x10 3/uL 150-400 N MEAN PLATELET VOLUME (test c ode = MPV) 11.5 fL 7.0-9.0 H NEUTROPHIL % (test code = NT%) 64.1 % 56.0-77.0 N IMMATURE GRANULOCYTE % (test code = IG%) 0.6 % 0.0-2.0 N LYMPHOCYTE % (test code = LY%) 19.3 % 14.0-32.0 N MONOCYTE % (test code = MO%) 14.1 % 4.8-9.0 H EOSINOPHIL % (test code = EO%) 1.6 % 0.3-3.7 N BASOPHIL % (test code = BA%) 0.3 % 0.0-2.0 N NUCLEATED RBC % (test code = NRBC%) 0.3 % 0-0 H NEUTROPHIL # (test code = NT#) 4.30 x10 3/uL 2.0-7.6 N IMMATURE GRANULOCYTE # (test code = IG#) 0.04 x10 3/uL 0.00-0.03 H LYMPHOCYTE # (test code = LY#) 1.30 x10 3/uL 1.0-3.8 N MONOCYTE # (test code = MO#) 0.95 x10 3/uL 0.1-0.8 H EOSINOPHIL # (test code = EO#) 0.11 x10 3/uL 0.0-0.2 N BASOPHIL # (test code = BA#) 0.02 x10 3/uL 0.0-0.2 N NUCLEATED RBC # (test code = NRBC#) 0.02 x10 3/uL 0.0-0.1 N MANUAL DIFF REQUIRED (test c ode = MDIFF) NO - XR CHEST 1 [id number] 00:00:00 [facility] 1950 Sex: M FAX: Laury Carranza Mcnabb: [address]: REG Name: RENÉ,WILLI [facility] : 1950 Age/S: 72/M [address] [facility] Unit #: [id number] Loc: [place] [address] Phys: Laury Carranza MD Acct: [id number] Dis Date: Status: REG ER PHONE #: [phone] Exam Date: 04/17/2023213 FAX #: [phone] Reason: SOB EXAMS: CPT CODE: [id number] XR CHEST 1 V [id number] PROCEDURE INFORMATION: Exam: XR Chest Exam date and time: 04/17/2023 2:08 AM Age: 72 years old Clinical indication: Shortness of breath; Additional info: SOB TECHNIQUE: Imaging protocol: Radiologic exam of the chest. Views: 1 view. COMPARISON: CR XR CHEST 1V 10/30/2021 4:38 PM FINDINGS: Tubes, catheters and devices: Multi lead pacemaker with AICD is noted. Leads are intact. Lungs: Mild perihilar and lower lobe interstitial/reticular opacities are similar to previous studies. No confluent consolidation identified Pleural spaces: Unremarkable. No pleural effusion. No pneumothorax. Heart/Mediastinum: Heart is enlarged. Mediastinum is normal. Pulmonary vessels are mildly prominent. Bones/joints: No acute osseous findings. IMPRESSION: Constellation of findings are most suggestive of heart failure and qitg-ks-zbrtdkow volume overload. Concurrent pneumonia is difficult to exclude however at 0425 Reported and signed by: Noah Meng M.D. CC: Laury Carranza MD Technologist: Tatiana Parry, RT(R) Trnscrd Date/Time/By: 04/17/2023 (042) : By: [email or web address] Orig Print D/T: S: 04/17/2023 (424) PAGE 1 Signed ReportBASIC METABOLIC [id number] 16:17:00* Test Item Value Reference Range Interpretation Comme [...] H BLOOD UREA NITROGEN (test code = BUN) 12 mg/dL 7-18 N GLOMERULAR FILTRATION RATE (test code = GFR) 72.6 80-90 L Units of measure = ml/min/1.73 m2 CREATININE (test code = CREAT) 1.2 mg/dL 0.6-1.3 N CALCIUM (test code = CA) 8.7 mg/dL 8.0-10.5 N CBC W/AUTO [id number] 16:03:00* Test Item Value Reference Range Interpretation Comme nts WHITE BLOOD CELL (test code = WBC) 9.2 x10 3/uL 4.5-11.0 N RED BLOOD CELL (test code = RBC) 5.38 x10 6/uL 4.00-5.60 N HEMOGLOBIN (test code = HGB) 14.4 g/dL 12.5-16.9 N HEMATOCRIT (test code = HCT) 49.0 % 37.5-50.7 N MEAN CELL VOLUME (test code = MCV) 91.1 fL 81.0-99.0 N MEAN CELL HGB (test code = MCH) 26.8 pg 27.0-33.0 L MEAN CELL HGB CONCETRATION (test code = MCHC) 29.4 g/dL 33.0-37.0 L RED CELL DISTRIBUTION WIDTH CV (test code = RDW) 16.6 % 11.5-14.5 H RED CELL DISTRIBUTION WIDTH SD (test code = RDW-SD) 55.6 fL 37.0-54.0 H PLATELET COUNT (test code = PLT) 240 x10 3/uL 150-400 N MEAN PLATELET VOLUME (test c ode = MPV) 10.9 fL 7.0-9.0 H NEUTROPHIL % (test code = NT%) 68.0 % 56.0-77.0 N IMMATURE GRANULOCYTE % (test code = IG%) 0.2 % 0.0-2.0 N LYMPHOCYTE % (test code = LY%) 20.5 % 14.0-32.0 N MONOCYTE % (test code = MO%) 8.7 % 4.8-9.0 N EOSINOPHIL % (test code = EO%) 2.3 % 0.3-3.7 N BASOPHIL % (test code = BA%) 0.3 % 0.0-2.0 N NUCLEATED RBC % (test code = NRBC%) 0.0 % 0-0 N NEUTROPHIL # (test code = NT#) 6.23 x10 3/uL 2.0-7.6 N IMMATURE GRANULOCYTE # (test code = IG#) 0.02 x10 3/uL 0.00-0.03 N LYMPHOCYTE # (test code = LY#) 1.88 x10 3/uL 1.0-3.8 N MONOCYTE # (test code = MO#) 0.80 x10 3/uL 0.1-0.8 N EOSINOPHIL # (test code = EO#) 0.21 x10 3/uL 0.0-0.2 H BASOPHIL # (test code = BA#) 0.03 x10 3/uL 0.0-0.2 N NUCLEATED RBC # (test code = NRBC#) 0.00 x10 3/uL 0.0-0.1 N MANUAL DIFF REQUIRED (test c ode = MDIFF) NO GLUCOSE [id number] 13:59:00* Test Item Value Reference Range Interpretation Comme nts GLUCOSE BEDSIDE (test code = GLUBED) 127 MG/DL 70-110 H Performed by cer tified rotary dump operator at [facility] [id number] 13:39:00* Test Item Value Reference Range Interpretation Comme nts ACT-ISTAT (test code = ACTI) 279 SEC 74-137 H Performed by cer tified rotary dump operator at [facility] [id number] 13:29:00* Test Item Value Reference Range Interpretation Comme nts ACT-ISTAT (test code = ACTI) 243 SEC 74-137 H Performed by cer tified rotary dump operator at [facility] [id number] 13:07:00* Test Item Value Reference Range Interpretation Comme nts ACT-ISTAT (test code = ACTI) 327 SEC 74-137 H Performed by cer tified rotary dump operator at [facility] GLUCOSE [id number] 10:34:00* Test Item Value Reference Range Interpretation Comme nts GLUCOSE BEDSIDE (test code = GLUBED) 154 MG/DL 70-110 H Performed by [facility] tified rotary dump operator at [facility] BASIC METABOLIC [id number] 12:01:00* Test Item Value Reference Range Interpretation Comme nts SODIUM (test code = NA) 144 mEq/L 134-147 N POTASSIUM (test code = K) 3.5 mEq/L 3.4-5.0 N CHLORIDE (test code = CL) 105 mEq/L 100-108 N CARBON DIOXIDE (test code = CO2) 26 mEq/l 21-33 N ANION GAP (test code = GAP) 16 0-20 N GLUCOSE (test code = GLU) 222 mg/dL 70-110 H BLOOD UREA NITROGEN (test code = BUN) 15 mg/dL 7-18 N GLOMERULAR FILTRATION RATE (test code = GFR) 66.2 80-90 L Units of measure = ml/min/1.73 m2 CREATININE (test code = CREAT) 1.3 mg/dL 0.6-1.3 N CALCIUM (test code = CA) 9.1 mg/dL 8.0-10.5 N PROTHROMBIN [id number] 11:36:00* Test Item Value Reference Range Interpretation Comme nts PROTHROMBIN TIME PATIENT (test code = PTP) 13.5 SECONDS 9.3-12.9 H INTERNATIONAL NORMAL RATIO (test code = INR) 1.2 0.8-1.2 N TARGET INR BY INDICATION Indication INR1. Prophylaxis of venous thrombosis 2.0 - 3.0 (orthopedic surgery), Prophylaxis of venous thrombosis (other than high-risk surgery), Treatment of Deep Vein Thrombosis/Pulmonary Embolism, Prevention of systemic embolism - Tissue heart valves, Acute Myocardial Infarction (to prevent systemic embolism), Valvular heart disease, Atrial Fibrillation, Bileaflet mechanical valve in aortic position.2. Mechanical prosthetic valves (high risk), 2.5 - 3.5 Presence of Lupus Anticoagulant or Antiphospholipid Antibodies, Prevention of systemic embolism - Acute Myocardial Infarction (to prevent recurrent infarct). CBC W/AUTO [id number] 11:35:00* Test Item Value Reference Range Interpretation Comme nts WHITE BLOOD CELL (test code = WBC) 8.3 x10 3/uL 4.5-11.0 N RED BLOOD CELL (test code = RBC) 5.55 x10 6/uL 4.00-5.60 N HEMOGLOBIN (test code = HGB) 14.6 g/dL 12.5-16.9 N HEMATOCRIT (test code = HCT) 50.0 % 37.5-50.7 N MEAN CELL VOLUME (test code = MCV) 90.1 fL 81.0-99.0 N MEAN CELL HGB (test code = MCH) 26.3 pg 27.0-33.0 L MEAN CELL HGB CONCETRATION (test code = MCHC) 29.2 g/dL 33.0-37.0 L RED CELL DISTRIBUTION WIDTH CV (test code = RDW) 16.7 % 11.5-14.5 H RED CELL DISTRIBUTION WIDTH SD (test code = RDW-SD) 56.3 fL 37.0-54.0 H PLATELET COUNT (test code = PLT) 234 x10 3/uL 150-400 N MEAN PLATELET VOLUME (test c ode = MPV) 10.8 fL 7.0-9.0 H NEUTROPHIL % (test code = NT%) 65.3 % 56.0-77.0 N IMMATURE GRANULOCYTE % (test code = IG%) 0.4 % 0.0-2.0 N LYMPHOCYTE % (test code = LY%) 24.3 % 14.0-32.0 N MONOCYTE % (test code = MO%) 7.6 % 4.8-9.0 N EOSINOPHIL % (test code = EO%) 1.8 % 0.3-3.7 N BASOPHIL % (test code = BA%) 0.6 % 0.0-2.0 N NUCLEATED RBC % (test code = NRBC%) 0.0 % 0-0 N NEUTROPHIL # (test code = NT#) 5.45 x10 3/uL 2.0-7.6 N IMMATURE GRANULOCYTE # (test code = IG#) 0.03 x10 3/uL 0.00-0.03 N LYMPHOCYTE # (test code = LY#) 2.03 x10 3/uL 1.0-3.8 N MONOCYTE # (test code = MO#) 0.63 x10 3/uL 0.1-0.8 N EOSINOPHIL # (test code = EO#) 0.15 x10 3/uL 0.0-0.2 N BASOPHIL # (test code = BA#) 0.05 x10 3/uL 0.0-0.2 N NUCLEATED RBC # (test code = NRBC#) 0.00 x10 3/uL 0.0-0.1 N MANUAL DIFF REQUIRED (test c ode = MDIFF) NO BASIC METABOLIC [id number] 11:41:00* Test Item Value Reference Range Interpretation Comme nts SODIUM (test code = NA) 144 mEq/L 134-147 N POTASSIUM (test code = K) 3.2 mEq/L 3.4-5.0 L CHLORIDE (test code = CL) 109 mEq/L 100-108 H CARBON DIOXIDE (test code = CO2) 30 mEq/l 21-33 N ANION GAP (test code = GAP) 8 0-20 N GLUCOSE (test code = GLU) 156 mg/dL 70-110 H BLOOD UREA NITROGEN (test code = BUN) 7 mg/dL 7-18 N GLOMERULAR FILTRATION RATE (test code = GFR) 89.6 80-90 N Units of measure = ml/min/1.73 m2 CREATININE (test code = CREAT) 1.0 mg/dL 0.6-1.3 N CALCIUM (test code = CA) 8.2 mg/dL 8.0-10.5 N CBC W/AUTO [id number] 11:19:00* Test Item Value Reference Range Interpretation Comme nts WHITE BLOOD CELL (test code = WBC) 7.5 x10 3/uL 4.5-11.0 N RED BLOOD CELL (test code = RBC) 4.34 x10 6/uL 4.00-5.60 N HEMOGLOBIN (test code = HGB) 12.1 g/dL 12.5-16.9 L HEMATOCRIT (test code = HCT) 40.1 % 37.5-50.7 N MEAN CELL VOLUME (test code = MCV) 92.4 fL 81.0-99.0 N MEAN CELL HGB (test code = MCH) 27.9 pg 27.0-33.0 N MEAN CELL HGB CONCETRATION (test code = MCHC) 30.2 g/dL 33.0-37.0 L RED CELL DISTRIBUTION WIDTH CV (test code = RDW) 16.8 % 11.5-14.5 H PLATELET COUNT (test code = PLT) 173 x10 3/uL 150-400 N NEUTROPHIL % (test code = NT%) 66.9 % 56.0-77.0 N LYMPHOCYTE % (test code = LY%) 23.3 % 14.0-32.0 N NEUTROPHIL # (test code = NT#) 4.99 x10 3/uL 2.0-7.6 N LYMPHOCYTE # (test code = LY#) 1.74 x10 3/uL 1.0-3.8 N MANUAL DIFF REQUIRED (test c ode = MDIFF) NO RED CELL DISTRIBUTION WIDTH SD (test code = RDW-SD) 57.3 fL 37.0-54.0 H MEAN PLATELET VOLUME (test c ode = MPV) 11.1 fL 7.0-9.0 H IMMATURE GRANULOCYTE % (test code = IG%) 0.1 % 0.0-2.0 N MONOCYTE % (test code = MO%) 8.2 % 4.8-9.0 N EOSINOPHIL % (test code = EO%) 1.2 % 0.3-3.7 N BASOPHIL % (test code = BA%) 0.3 % 0.0-2.0 N NUCLEATED RBC % (test code = NRBC%) 0.0 % 0-0 N IMMATURE GRANULOCYTE # (test code = IG#) 0.01 x10 3/uL 0.00-0.03 N MONOCYTE # (test code = MO#) 0.61 x10 3/uL 0.1-0.8 N EOSINOPHIL # (test code = EO#) 0.09 x10 3/uL 0.0-0.2 N BASOPHIL # (test code = BA#) 0.02 x10 3/uL 0.0-0.2 N NUCLEATED RBC # (test code = NRBC#) 0.00 x10 3/uL 0.0-0.1 N GLUCOSE [id number] 09:23:00* Test Item Value Reference Range Interpretation Comme [facility] GLUCOSE BEDSIDE (test code = GLUBED) 108 MG/DL 70-110 N Performed by cer tified rotary dump operator at [facility] [id number] 08:44:00* Test Item Value Reference Range Interpretation Comme nts ACT-ISTAT (test code = ACTI) 273 SEC 74-137 H Performed by cer tified rotary dump operator at [facility] BASIC METABOLIC [id number] 08:38:00* Test Item Value Reference Range Interpretation Comme nts SODIUM (test code = NA) 145 mEq/L 134-147 N POTASSIUM (test code = K) 3.0 mEq/L 3.4-5.0 L CHLORIDE (test code = CL) 110 mEq/L 100-108 H CARBON DIOXIDE (test code = CO2) 32 mEq/l 21-33 N ANION GAP (test code = GAP) 6 0-20 N GLUCOSE (test code = GLU) 124 mg/dL 70-110 H BLOOD UREA NITROGEN (test code = BUN) 8 mg/dL 7-18 N GLOMERULAR FILTRATION RATE (test code = GFR) 101.2 80-90 H Units of measure = ml/min/1.73 m2 CREATININE (test code = CREAT) 0.9 mg/dL 0.6-1.3 N CALCIUM (test code = CA) 8.3 mg/dL 8.0-10.5 N [id number] 08:22:00* Test Item Value Reference Range Interpretation Comme nts ACT-ISTAT (test code = ACTI) 303 SEC 74-137 H Performed by cer tified rotary dump operator at [facility] GLUCOSE [id number] 06:14:00* Test Item Value Reference Range Interpretation Comme nts GLUCOSE BEDSIDE (test code = GLUBED) 115 MG/DL 70-110 H Performed by cer tified rotary dump operator at [facility] BASIC METABOLIC [id number] 11:09:00* Test Item Value Reference Range Interpretation Comme nts SODIUM (test code = NA) 144 mEq/L 134-147 N POTASSIUM (test code = K) 2.9 mEq/L 3.4-5.0 LL Critical result called to SAMMI BOB/Chris RomeroLAB.LS at 1102 11/24/21Nurse read back resut and tech confirmed it's correct? YES CHLORIDE (test code = CL) 108 mEq/L 100-108 N CARBON DIOXIDE (test code = CO2) 31 mEq/l 21-33 N ANION GAP (test code = GAP) 8 0-20 N GLUCOSE (test code = GLU) 198 mg/dL 70-110 H BLOOD UREA NITROGEN (test code = BUN) 7 mg/dL 7-18 N GLOMERULAR FILTRATION RATE (test code = GFR) 89.6 80-90 N Units of measure = ml/min/1.73 m2 CREATININE (test code = CREAT) 1.0 mg/dL 0.6-1.3 N CALCIUM (test code = CA) 8.1 mg/dL 8.0-10.5 N PROTHROMBIN [id number] 10:36:00* Test Item Value Reference Range Interpretation Comme nts PROTHROMBIN TIME PATIENT (test code = PTP) 15.2 SECONDS 9.3-12.9 H INTERNATIONAL NORMAL RATIO (test code = INR) 1.4 0.8-1.2 H TARGET INR BY INDICATION Indication INR1. Prophylaxis of venous thrombosis 2.0 - 3.0 (orthopedic surgery), Prophylaxis of venous thrombosis (other than high-risk surgery), Treatment of Deep Vein Thrombosis/Pulmonary Embolism, Prevention of systemic embolism - Tissue heart valves, Acute Myocardial Infarction (to prevent systemic embolism), Valvular heart disease, Atrial Fibrillation, Bileaflet mechanical valve in aortic position.2. Mechanical prosthetic valves (high risk), 2.5 - 3.5 Presence of Lupus Anticoagulant or Antiphospholipid Antibodies, Prevention of systemic embolism - Acute Myocardial Infarction (to prevent recurrent infarct). CBC W/AUTO [id number] 10:21:00* Test Item Value Reference Range Interpretation Comme nts WHITE BLOOD CELL (test code = WBC) 9.0 x10 3/uL 4.5-11.0 N RED BLOOD CELL (test code = RBC) 4.68 x10 6/uL 4.00-5.60 N HEMOGLOBIN (test code = HGB) 13.1 g/dL 12.5-16.9 N HEMATOCRIT (test code = HCT) 43.7 % 37.5-50.7 N MEAN CELL VOLUME (test code = MCV) 93.4 fL 81.0-99.0 N MEAN CELL HGB (test code = MCH) 28.0 pg 27.0-33.0 N MEAN CELL HGB CONCETRATION (test code = MCHC) 30.0 g/dL 33.0-37.0 L RED CELL DISTRIBUTION WIDTH CV (test code = RDW) 16.5 % 11.5-14.5 H PLATELET COUNT (test code = PLT) 179 x10 3/uL 150-400 N NEUTROPHIL % (test code = NT%) 79.9 % 56.0-77.0 H LYMPHOCYTE % (test code = LY%) 11.3 % 14.0-32.0 L NEUTROPHIL # (test code = NT#) 7.16 x10 3/uL 2.0-7.6 N LYMPHOCYTE # (test code = LY#) 1.01 x10 3/uL 1.0-3.8 N MANUAL DIFF REQUIRED (test c ode = MDIFF) NO RED CELL DISTRIBUTION WIDTH SD (test code = RDW-SD) 56.4 fL 37.0-54.0 H MEAN PLATELET VOLUME (test c ode = MPV) 11.3 fL 7.0-9.0 H IMMATURE GRANULOCYTE % (test code = IG%) 0.2 % 0.0-2.0 N MONOCYTE % (test code = MO%) 7.6 % 4.8-9.0 N EOSINOPHIL % (test code = EO%) 0.8 % 0.3-3.7 N BASOPHIL % (test code = BA%) 0.2 % 0.0-2.0 N NUCLEATED RBC % (test code = NRBC%) 0.0 % 0-0 N IMMATURE GRANULOCYTE # (test code = IG#) 0.02 x10 3/uL 0.00-0.03 N MONOCYTE # (test code = MO#) 0.68 x10 3/uL 0.1-0.8 N EOSINOPHIL # (test code = EO#) 0.07 x10 3/uL 0.0-0.2 N BASOPHIL # (test code = BA#) 0.02 x10 3/uL 0.0-0.2 N NUCLEATED RBC # (test code = NRBC#) 0.00 x10 3/uL 0.0-0.1 N [id number] 14:18:00* Test Item Value Reference Range Interpretation Comme nts GLUBED (test code = GLUBED) 167 mg/dL 70-110 H [id number] 14:17:00* Test Item Value Reference Range Interpretation Comme nts GLUBED (test code = GLUBED) 117 mg/dL 70-110 H [id number] 07:34:00* Test Item Value Reference Range Interpretation Comme nts GLUBED (test code = GLUBED) 215 mg/dL 70-110 H CBC W/AUTO [id number] 06:26:00* Test Item Value Reference Range Interpretation Comme nts WHITE BLOOD CELL (test code = WBC) 6.8 K/mm3 4.5-11.0 N RED BLOOD CELL (test code = RBC) 4.61 M/mm3 4.40-5.90 N HEMOGLOBIN (test code = HGB) 13.1 gm/dL 13.0-17.0 N HEMATOCRIT (test code = HCT) 44.7 % 36.0-48.0 N MEAN CELL VOLUME (test code = MCV) 97.0 UM3 80.0-94.0 H MEAN CELL HGB (test code = MCH) 28.4 UUG 25.5-32.5 N MEAN CELL HGB CONCETRATION (test code = MCHC) 29.3 gm/dL 29.0-35.5 N RED CELL DISTRIBUTION WIDTH (test code = RDW) 15.7 % 11.5-15.0 H RED CELL DISTRIBUTION WIDTH SD (test code = RDW-SD) 56.0 fL 34.8-50.2 H PLATELET COUNT (test code = PLT) 172 K/mm3 150-400 N MEAN PLATELET VOLUME (test c ode = MPV) 11.8 fl 7.4-10.4 H NEUTROPHIL % (test code = NT%) 74.3 % 49.0-76.0 N IMMATURE GRANULOCYTE % (test code = IG%) 0.3 % 0.0-0.4 N LYMPHOCYTE % (test code = LY%) 14.6 % 23.0-38.0 L MONOCYTE % (test code = MO%) 9.3 % 1.0-10.0 N EOSINOPHIL % (test code = EO%) 1.2 % 1.0-5.0 N BASOPHIL % (test code = BA%) 0.3 % 0.0-1.0 N NUCLEATED RBC % (test code = NRBC%) 0.0 % 0.0-0.1 N NEUTROPHIL # (test code = NT#) 5.0 K/mm3 2.4-6.3 N IMMATURE GRANULOCYTE # (test code = IG#) 0.02 x10 3/uL 0.00-0.07 N LYMPHOCYTE # (test code = LY#) 1.0 K/mm3 1.2-4.0 L MONOCYTE # (test code = MO#) 0.6 K/mm3 0.0-0.6 N EOSINOPHIL # (test code = EO#) 0.1 K/MM3 0.0-0.7 N BASOPHIL # (test code = BA#) 0.0 K/mm3 0.0-0.2 N NUCLEATED RBC # (test code = NRBC#) 0.00 X10 3uL 0.00-0.01 N BASIC METABOLIC [id number] 06:17:00* Test Item Value Reference Range Interpretation Comme nts SODIUM (test code = NA) 142 mmol/l 134.0-147.0 N POTASSIUM (test code = K) 4.2 mmol/L 3.6-5.2 N CHLORIDE (test code = CL) 104 mmol/l 98.0-107.0 N CARBON DIOXIDE (test code = CO2) 32.9 mmol/l 21.0-33.0 N ANION GAP (test code = GAP) 9.3 0-20 N GLUCOSE (test code = GLU) 174 mg/dl 70.0-110.0 H BLOOD UREA NITROGEN (test co de = BUN) 12 mg/dl 7.0-18.0 N CREATININE (test code = CREAT) 1.24 mg/dL 0.60-1.30 N GFR NON BLACK (test code = GFRNONBLACK) 61 mL/min 80-90 L GFR BLACK (test code = GFRBLACK) 74 mL/min 97-109 L CALCIUM (test code = CA) 8.6 mg/dl 8.0-10.5 N [id number] 07:26:00* Test Item Value Reference Range Interpretation Comme nts TROPONIN-I (test code = TROPI) 0.63 NG/ML 0.00-0.06 REFERENCE RANGE TROPONIN I HEALTHY INDIVIDUALS: <0.06 ng/mL R/O ISCHEMIA: 0.07 - 0.60 ng/mL CUT-OFF RANGE FOR AMI: 0.60 - 1.5 ng/mL [id number] 06:10:00* Test Item Value Reference Range Interpretation Comme nts GLUBED (test code = GLUBED) 115 mg/dL 70-110 H [id number] 04:17:00* Test Item Value Reference Range Interpretation Comme nts TROPONIN-I (test code = TROPI) 0.59 NG/ML 0.00-0.06 REFERENCE RANGE TROPONIN I HEALTHY INDIVIDUALS: <0.06 ng/mL R/O ISCHEMIA: 0.07 - 0.60 ng/mL CUT-OFF RANGE FOR AMI: 0.60 - 1.5 ng/mL [id number] 22:52:00* Test Item Value Reference Range Interpretation Comme nts TROPONIN-I (test code = TROPI) 0.43 NG/ML 0.00-0.06 H REFERENCE RANGE TROPONIN I HEALTHY INDIVIDUALS: <0.06 ng/mL R/O ISCHEMIA: 0.07 - 0.60 ng/mL CUT-OFF RANGE FOR AMI: 0.60 - 1.5 ng/mL B-TYPE NATRIURETIC [id number] 17:55:00* Test Item Value Reference Range Interpretation Comme nts B-TYPE NATRIURETIC PEPTIDE ( test code = BNP) 670 PG/ML 5-100 H [id number] 17:55:00* Test Item Value Reference Range Interpretation Comme nts TROPONIN-I (test code = TROPI) 0.04 NG/ML 0.00-0.06 N REFERENCE RANGE TROPONIN I HEALTHY INDIVIDUALS: <0.06 ng/mL R/O ISCHEMIA: 0.07 - 0.60 ng/mL CUT-OFF RANGE FOR AMI: 0.60 - 1.5 ng/mL BASIC METABOLIC [id number] 17:55:00* Test Item Value Reference Range Interpretation Comme nts SODIUM (test code = NA) 142 mmol/l 134.0-147.0 N POTASSIUM (test code = K) 3.4 mmol/L 3.6-5.2 L CHLORIDE (test code = CL) 105 mmol/l 98.0-107.0 N CARBON DIOXIDE (test code = CO2) 29.9 mmol/l 21.0-33.0 N ANION GAP (test code = GAP) 10.5 0-20 N GLUCOSE (test code = GLU) 134 mg/dl 70.0-110.0 H BLOOD UREA NITROGEN (test co de = BUN) 6 mg/dl 7.0-18.0 L CREATININE (test code = CREAT) 1.03 mg/dL 0.60-1.30 N GFR NON BLACK (test code = GFRNONBLACK) 76 mL/min 80-90 L GFR BLACK (test code = GFRBLACK) 92 mL/min 97-109 L CALCIUM (test code = CA) 8.5 mg/dl 8.0-10.5 N [id number] 17:52:00* Test Item Value Reference Range Interpretation Comme nts GLUBED (test code = GLUBED) 117 mg/dL 70-110 H COVID 19 Asymptomatic IH [id number] 17:49:00* Test Item Value Reference Range Interpretation Comme nts COVID 19 Asymptomatic IH AG (test code = COVNONPUIAG) NEGATIVE NEGATIVE Negative results should be treated as presumptive and ifinconsistent with clinical signs and symptoms, or necessaryfor patient management, should be tested with an alternativemolecular assay. Negative results do not preclude [id number] and should not be used as the sole basis forpatient management decisions. Negative results should beconsidered in the context of a patient's recent exposures,history, presence of clinical signs and symptoms consistentwith COVID-19. PROTHROMBIN [id number] 17:20:00* Test Item Value Reference Range Interpretation Comme nts PROTHROMBIN TIME PATIENT (test code = PTP) 15.1 SECONDS 9.9-12.8 H INTERNATIONAL NORMAL RATIO (test code = INR) 1.3 0.89-1.14 H THE INR IS TO BE USED ONLY FOR MONITORING ORAL ANTICOAGULANTTHERAPY. THE FOLLOWING ARE SUGGESTED RANGES FROM THEAMERICAN COLLEGE OF CHEST PHYSICIANS:INDICATION INR VALUEPROPHYLAXIS OF VENOUS THROMBOSIS (ORTHOPEDIC SURGERY) 2.0 - 3.0PROPHYLAXIS OF VENOUS THROMBOSIS (OTHER THAN HIGH-RISK SURGERY) 2.0 - 3.0TREATMENT OF DEEP VEIN THROMBOSIS OR PULMONARY EMBOLISM 2.0 - 3.0PREVENTION OF SYSTEMIC EMBOLISM TISSUE HEART VALVES 2.0 - 3.0 ACUTE MYOCARDIAL INFARCTION (TO PREVENT SYSTEMIC EMBOLISM) 2.0 - 3.0 ACUTE MYOCARDIAL INFARCTION (TO PREVENT RECURRENT INFARCT) 2.5 - 3.0 VALVULAR HEART DISEASE 2.0 - 3.0 ATRIAL FIBRILATION 2.0 - 3.0BILEAFLET MECHANICAL VALVE IN AORTIC POSITION 2.0 - 3.0MECHANICAL PROSTHETIC VALVES (HIGH RISK) 2.5 - 3.5PRESENCE OF LUPUS ANTICOAGULANT OR ANTIPHOSPHOLIPID ANTIBODIES 2.5 - 3.5 Specimen comments: .CBC W/AUTO [id number] 17:09:00* Test Item Value Reference Range Interpretation Comme nts WHITE BLOOD CELL (test code = WBC) 7.7 K/mm3 4.5-11.0 N RED BLOOD CELL (test code = RBC) 4.63 M/mm3 4.40-5.90 N HEMOGLOBIN (test code = HGB) 12.9 gm/dL 13.0-17.0 L HEMATOCRIT (test code = HCT) 43.4 % 36.0-48.0 N MEAN CELL VOLUME (test code = MCV) 93.7 UM3 80.0-94.0 N MEAN CELL HGB (test code = MCH) 27.9 UUG 25.5-32.5 N MEAN CELL HGB CONCETRATION (test code = MCHC) 29.7 gm/dL 29.0-35.5 N RED CELL DISTRIBUTION WIDTH (test code = RDW) 15.4 % 11.5-15.0 H RED CELL DISTRIBUTION WIDTH SD (test code = RDW-SD) 53.1 fL 34.8-50.2 H PLATELET COUNT (test code = PLT) 162 K/mm3 150-400 N MEAN PLATELET VOLUME (test c ode = MPV) 10.7 fl 7.4-10.4 H NEUTROPHIL % (test code = NT%) 79.5 % 49.0-76.0 H IMMATURE GRANULOCYTE % (test code = IG%) 0.3 % 0.0-0.4 N LYMPHOCYTE % (test code = LY%) 11.7 % 23.0-38.0 L MONOCYTE % (test code = MO%) 7.2 % 1.0-10.0 N EOSINOPHIL % (test code = EO%) 1.0 % 1.0-5.0 N BASOPHIL % (test code = BA%) 0.3 % 0.0-1.0 N NUCLEATED RBC % (test code = NRBC%) 0.0 % 0.0-0.1 N NEUTROPHIL # (test code = NT#) 6.1 K/mm3 2.4-6.3 N IMMATURE GRANULOCYTE # (test code = IG#) 0.02 x10 3/uL 0.00-0.07 N LYMPHOCYTE # (test code = LY#) 0.9 K/mm3 1.2-4.0 L MONOCYTE # (test code = MO#) 0.6 K/mm3 0.0-0.6 N EOSINOPHIL # (test code = EO#) 0.1 K/MM3 0.0-0.7 N BASOPHIL # (test code = BA#) 0.0 K/mm3 0.0-0.2 N NUCLEATED RBC # (test code = NRBC#) 0.00 X10 3uL 0.00-0.01 N - XR CHEST 1 [id number] 16:43:00 [facility] [place] : 1950 Sex: M FAX: Shara Jackman MD [phone] [place]: St: PRE Name: WILLI MERRITT [facility] : 1950 Age/S: 71/M [address] [facility] Unit #: [id number] Loc: [place], [place] Phys: Shara Jackman [id number] Acct: [id number] Dis Date: Status: PRE ER PHONE #: [phone] Exam Date: 10/30/20211641 FAX #: [phone] Reason: SOB EXAMS: CPT CODE: [id number] XR CHEST 1 V 14384 EXAMINATION: - XR CHEST 1 V. LOCATION: B2. HISTORY: SOB. COMPARISON: None. TECHNIQUE: Single AP view of the chest was obtained. FINDINGS: The heart is enlarged in size. Left AICD device is present. There is mild prominence of the central pulmonary vasculature. No acute osseous abnormality is identified. IMPRESSION: Cardiomegaly with mild central pulmonary congestion. at 1643 Reported and signed by: Rupal Gunter M.D. CC: Shara Jackman MD Technologist: JJ GIRALDO Trnscrd Date/Time/By: 10/30/2021 (1642) : By: [email or web address] PAGE 1 Signed Report FAX:Shara Jackman MD [phone] [place]: St: PRE Name: WILLI MERRITT [facility] : 1950 Age/S: 71/M [address] Unit #: [id number] Loc: [place], [place]: [place] [id number] Acct: [id number] Dis Date: Status: PRE ER PHONE #: [phone] Exam Date: 10/30/20211641 FAX #: [phone] Reason: SOB EXAMS: CPT CODE: [id number] XR CHEST 1 V 59614 (Continued) Orig Print D/T: S: 10/30/2021 (1645) PAGE 2 Signed Report Notes Date/Time Note Provider Source 2024-05-02 08:36:00 [facility] ([facility] Hospitalist Discharge Summary REPORT#:[id number] REPORT STATUS: Signed REPORT INITIALIZATION DATE:05/02/24 TIME: 835 PATIENT: WILLI MERRITT UNIT #: [id number] ROOM/BED: [place] [address] : [birth year] AGE: 73 SEX: M ATTEND: Lisa Layton MD ADM AUTHOR: Tricia Schofield MD REPT SERVICE DT/TIME: 05/02/24 0836 * ALL edits or amendments must be made on the electronic/computer document * General Information Date of admission: Observation Start Date: Date of admission: 02/29/24 Discharge date: 03/10/24 Discharge diagnosis: --- Acute on chronic hypoxic and hypercapnic respiratory failure, pulmonary edema --- Acute on chronic systolic heart failure --- Bacteremia --- CKD stage III --- Pulmonary nodules --- Diabetes mellitus type 2 --- Morbid obesity --- Dyslipidemia Hospital course: Acute on chronic hypoxic and hypercapnic respiratory failure On BiPAP Pulmonology follow-up Steroids Solu-Medrol , duonebs Acute on chronic systolic heart failure IV diuresis Cardiology consultation Echocardiogram EF 35 to 39% April 2023 -- 45-49% February 2024; grade 2 diastolic dysfunction Lactic acidosis Follow cultures -- blood cx coag neg staph in 4 -- repeat Continue antibiotics Elevated troponins --like;y type 2 MA H/O disease, cardiac stents cardiology consulted ASA, plavix, statin, beta lisa CKD stage III -- Cr -- 1.4 . 1.7 Pulmonary nodules right upper and lower lobes similar to April 2023 Diabetes mellitus type 2 A1c, SSI, home medications --glipizide and aspart ; schedule Lantus Hypertension blood pressure controlled Morbid obesity BMI 41 --OHS/DIANNE Uses CPAP inconsistently at home Needs lifestyle modification with diet and exercise Dyslipidemia DVT prophylaxis Lovenox -- more alert -- monitor blood sugars -- wean BIPAP -- continue diuresis 03/03/24 --- Acute on chronic hypoxic and hypercapnic respiratory failure, pulmonary edema BiPAP, nasal cannula oxygen, nonrebreather--wean as tolerated pulmonology follow-up --- steroids, DuoNebs --- Acute on chronic systolic heart failure IV diuresis cardiology follow-up Elevated troponins type II MA --- Bacteremia repeat cultures consult ID ; leukocytosis --- CKD stage III creatinine stable 1.4 ; hyponatremia --- Pulmonary nodules -stable pulmonology follow-up --- Diabetes mellitus type 2 increase Lantus; A1c 7.9 --- Morbid obesity BMI 42 OHS, DIANNE needs lifestyle modification --- Dyslipidemia --- DVT prophylaxis Lovenox Wean oxygen as tolerated Increase Lantus monitor blood sugars 03/04/2024 Acute on chronic hypoxic respiratory failure, continue oxygen/BiPAP, on IV steroids Acute on chronic systolic and diastolic CHF EF 45 to 49% with acute pulm edema, continue IV diuresis Type II MA Bacteremia, ID following, on IV antibiotics CKD stage III Diabetes mellitus type 2--- Lantus/lispro regimen Wears 6-8 L of oxygen at home. Still significantly volume overloaded 03/10/24 --- Acute on chronic hypoxic and hypercapnic respiratory failure, pulmonary edema wean oxygen as tolerated pulmonology follow-up --- steroids, DuoNebs --- Acute on chronic systolic heart failure IV diuresis cardiology follow-up Elevated troponins type II MA --- Bacteremia repeat cultures negative to date consulted ID ; leukocytosis --- CKD stage III creatinine stable 1.4 1.1; hyponatremia resolved --- Pulmonary nodules -stable pulmonology follow-up --- Diabetes mellitus type 2 increase Lantus; A1c 7.9 ; DC glipizide for hypoglycemia --- Morbid obesity BMI 42 OHS, DIANNE needs lifestyle modification --- Dyslipidemia --- DVT prophylaxis Lovenox Wean oxygen as tolerated --- on 5 L now Monitor blood sugars --- fluctuating because of patient's noncompliance with diet -- Need for 10 L concentrator to be determined Later patient left [place], 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 took 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 home with the hospital O2 tank Patient said he had an O2 tank in his truck Objective VS/I O Last Documented: Result Date Time Pulse Ox 92 03/10 1927 Pulse 79 03/10 1927 B/P 124/54 03/10 1926 B/P Mean 77.4 03/10 1926 Resp 18 03/10 1926 Temp 98.4 03/10 1925 O2 Delivery Nasal cannula 03/10 1837 O2 Flow Rate 7 03/10 1837 FiO2 52 03/10 0629 Free Text Obj Notes Free Text Obj Notes: PHYSICAL EXAMINATION: General appearance: alert , on 5 L NC, no acute distress, obese Head/Eyes: atraumatic, face is symmetric Neck: supple, no masses or swelling Cardiovascular: regular rate rhythm, normal heart sounds Respiratory: Decreased breath sounds bilaterally, no distress Abdomen/GI: active bowel sounds, soft, non-tender, obese Extremities: moves all, PIO LE edema, no cyanosis Neuro/HAND STONER: alert OX3, no focal deficits Skin: dry, intact Psychiatry: mood appropriate Discharge Instructions PCP PCP follow-up: PCP: Harrison Alvarez III, MD Discharge to: [place] Additional Discharge Routines: PCP Follow-Up at 0839 RPT #:[id number] END OF REPORT [facility] 2024-03-10 16:06:00 [facility] ([facility]) Pulmonology Progress Note REPORT#:[id number] REPORT STATUS: Signed REPORT INITIALIZATION DATE:03/10/24 TIME: 1605 PATIENT: WILLI MERRITT UNIT #: [id number] ROOM/BED: [place] [address] : [birth year] AGE: 73 SEX: M ATTEND: Lisa Layton MD ADM AUTHOR: Dakota Melgar MD REPT SERVICE DT/TIME: 03/10/24 160 * ALL edits or amendments must be made on the electronic/computer document * Subjective Chief complaint: sob Patient reports: No: congestion, cough. Comments: After placing him on 5 Lpm nasal cannula last evening, RT went in to check on him but he was in the bathroom and would not come out. However, a nurse documented sats in the mid 90s on this flow later. The patient's O2 flow was increased again last night, but he states he would not wear his BiPAP and was using nasal oxygen. On further questioning, his CPAP at home actually works (even though he had previously told me it was no longer functional), and he states he leaves his oxygen flow at "8" at home (though he still insists he has a 5 Lpm oxygen concentrator). He is in no distress. RN reports no problems. ROS negative for f/c, n/v. Objective General VS/I O: Last Documented: Result Date Time Pulse Ox 96 03/10 153 B/P 117/68 03/10 153 B/P Mean 84.0 03/10 153 Temp 98.4 03/10 153 Pulse 84 03/10 1539 Resp 22 03/10 153 FiO2 52 03/10 629 O2 Delivery Nasal cannula 03/10 629 O2 Flow Rate 8 03/10 629 24 hour I O ending at 0700: 03/09 1900 03/10 0700 Intake Total Output Total 700 900 Balance -700 -900 Output, Urine 700 900 PATIENT WEIGHT: Weight (lb): 264 Weight (oz): 8.88 Weight (kg): 120.000 Medications: Active Meds + DC'd Last 24 Hrs Potassium Chloride (POTASSIUM CHLORIDE 20 MEQ TAB.ER) 20 MEQ ONCE ONE PO (DC) Insulin Glargine (Semglee) 30 UNITS BID SUBQ Diphenhydramine HCl (BENADRYL) 25 MG Q6H PRN PRN PO Fluticasone Propionate (FLONASE NASAL SPRAY) 2 SPRAY DAILY NASAL (CKD) Methylprednisolone Sodium Succinate (Solu-Medrol 40 MG Vial) 40 MG DAILY IV Furosemide (LASIX 100MG) 60 MG Q8H IV Sodium Chloride (OCEAN 0.65% 45 ML NASAL SOLN) 1 SPRAY Q6H PRN PRN NASAL Aspirin (ASPIRIN 81MG CHEW) 81 MG DAILY PO Clopidogrel Bisulfate (PLAVIX) 75 MG DAILY PO Loratadine (CLARITIN) 10 MG DAILY PO Insulin Human Lispro (HumaLOG 100 UNITS/ML) 0 AC HS SUBQ Dextrose/Water (DEXTROSE 10%) 125 ML ASDIR PRN IV (CKD) Dextrose/Water (DEXTROSE 10%) 250 ML ASDIR PRN IV (CKD) Glucagon (GLUCAGON) 1 MG ASDIR PRN IM Atorvastatin Calcium (Lipitor) 80 MG DAILY@2100 PO Acetaminophen (TYLENOL 325MG) 650 MG Q4H PRN PRN PO Metoprolol Tartrate (LOPRESSOR) 25 MG Q12HR PO Enoxaparin Sodium (LOVENOX) 30 MG Q24H SUBQ Budesonide (PULMICORT) 0.5 MG RTQ12H NEB Formoterol Fumarate (PERFOROMIST) 20 MCG RTBID NEB Albuterol/Ipratropium (IPRATR-ALBUTEROL 0.5-3 MG/3 ML) 3 ML RTQ6H NEB Albuterol/Ipratropium (IPRATR-ALBUTEROL 0.5-3 MG/3 ML) 3 ML RTQ2H PRN PRN NEB Sterile Water (WATER FOR INJECTION) 1 ML ASDIR PRN IV Dietitian nutrition assessment The data set between the solid lines has been imported from the dietitian's assessment. BMI Calculated: 42.7 Nutrition related diagnosis: Morbid obesity Nutrition diagnosis details: BMI 40 or more Nutrition problem: Overweight/obesity Nutrition etiology: excessive intake Nutrition signs and symptoms: BMI of 42.7 with 100% of all, meals taken per RN notes Nutrition prescription: 1) Recommend Cardiac, ADA diet with 4 CHO/meal. 2) Suggest provide bowel regimen. 3) Monitor renal labs. Dietitian name: Glenna Bustamante, DIET Assessment completed: 03/10/24 Physical Exam General appearance: respiratory support, alert, awake, no acute distress Neck: no JVD, no lymphadenopathy Cardiovascular: normal S1/S2, regular rate rhythm, no murmur, no rub, no gallop Respiratory/chest: decreased breath sounds, on oxygen, rales Abdomen: soft, normal bowel sounds, no distention Extremities: edema, normal temperature, no clubbing Musculoskeletal: normal inspection, no muscle spasm Neuro/HAND STONER: alert, oriented X 3, CNII-XII intact, no motor deficits Skin: dry, stasis hyperpigmentation Lymphatics: neck normal, no lymphadenopathy Psychiatry: normal affect, normal mood Results Findings/Data: Laboratory Tests 03/10/2458: [Embedded Image Not Available] Laboratory Tests 03/09 03/10 03/10 03/10 1942 0059 0654 1041 Chemistry Sodium (134.0 - 147.0 mmol/l) 139 Potassium (3.6 - 5.2 mmol/L) 3.4 L Chloride (98.0 - 107.0 mmol/l) 97 L Carbon Dioxide (21.0 - 33.0 mmol/l) 37.7 H Anion Gap (0 - 20) 7.7 BUN (7.0 - 18.0 mg/dl) 27 H Creatinine (0.60 - 1.30 mg/dL) 1.13 Estimated Creat Clear (>30 mL/min) 54 Glomerular Filtr Rate (mL/min) 69 Glucose (70.0 - 110.0 mg/dl) 138 H POC Glucose (70 - 110 mg/dL) 364 H 94 274 H Calcium (8.0 - 10.5 mg/dl) 8.0 Laboratory Tests 05/31 0059 Hematology WBC (4.5 - 11.0 K/mm3) 11.7 H RBC (4.40 - 5.90 M/mm3) 3.56 L Hgb (13.0 - 17.0 gm/dL) 10.0 L Hct (36.0 - 48.0 %) 32.9 L MCV (80.0 - 94.0 UM3) 92.4 MCH (25.5 - 32.5 UUG) 28.1 MCHC (29.0 - 35.5 gm/dL) 30.4 RDW (11.5 - 15.0 %) 18.6 H Plt Count (150 - 400 K/mm3) 174 MPV (7.4 - 10.4 fl) 12.1 H Neut % (Auto) (49.0 - 76.0 %) 79.8 H Lymph % (Auto) (23.0 - 38.0 %) 7.4 L [place] % (Auto) (1.0 - 10.0 %) 11.2 H Eos % (Auto) (1.0 - 5.0 %) 0.2 L Baso % (Auto) (0.0 - 1.0 %) 0.2 Neut # (Auto) (2.4 - 6.3 K/mm3) 9.3 H Lymph # (Auto) (1.2 - 4.0 K/mm3) 0.9 L [place] # (Auto) (0.0 - 0.6 K/mm3) 1.3 H Eos # (Auto) (0.0 - 0.7 K/MM3) 0.0 Baso # (Auto) (0.0 - 0.2 K/mm3) 0.0 Absolute Nucleated RBC (0.00 - 0.01 X10 3uL) 0.00 Immature Gran % (0.0 - 0.4 %) 1.2 H Nucleated RBC % (0.0 - 0.1 %) 0.0 Immature Gran # (0.00 - 0.07 x10 3/uL) 0.14 H Diagnosis, Assessment Plan Free Text A P: 1. Acute hypercapnic/hypoxemic respiratory failure on chronic hypoxemic respiratory failure O2 via high flow nasal cannula Wean to baseline of 6 L/min as tolerated Worsened related to pulmonary edema Continue diuresis as tolerated -> increased diuretic wean oxygen as tolerated 2. CHF exacerbation significant fluid overload recent echo: EF 45-49% with grade 2 DD, moderately dilated RV and reduced RV systolic function continue IV Lasix fluid restrict cardiology following 3. DIANNE/OHS Patient reports having inconsistently using home CPAP Will continue to use BiPAP nightly and as needed while hospitalized 4. Acute kidney injury with chronic kidney disease? Continue to follow BUN and creatinine May improve with diuresis monitor electrolytes/renal function 5. Hypokalemia Replace as needed 6. Bacteremia contaminant? ID following follow repeat blood cultures Noncompliant with diet/fluid. Does not need a 10 Lpm oxygen concentrator. He states his home CPAP works. Refused ABG. No further recommendations. Ok to d/c home. at 1612 RPT #:[id number] END OF REPORT [facility] 2024-03-10 12:12:00 [facility] ([facility] Hospitalist Progress Note REPORT#:[id number] REPORT STATUS: Signed REPORT INITIALIZATION DATE:03/10/24 TIME: 1211 PATIENT: WILLI MERRITT UNIT #: [id number] ROOM/BED: [place] [id number] : 52 AGE: 73 SEX: M ATTEND: Lisa Layton MD ADM AUTHOR: Tricia Schofield MD REPT SERVICE DT/TIME: 03/10/24 1212 * ALL edits or amendments must be made on the electronic/computer document * Subjective Chief complaint: Follow-up acute on chronic respiratory failure On 5 L nasal cannula oxygen Shortness of breath --Patient tends to increase his own oxygen Review of Systems Constitutional: Denies: fever. Respiratory: Reports: SOB. Denies: productive cough (sputum). Cardiovascular: Denies: chest pain. GI: Denies: nausea, vomiting. Objective General VS/I O: Laboratory Tests 03/10/24 0059: [Embedded Image Not Available] 03/09/24 0115: [Embedded Image Not Available] Active Meds + DC'd Last 24 Hrs Insulin Glargine (Semglee) 30 UNITS BID SUBQ Diphenhydramine HCl (BENADRYL) 25 MG Q6H PRN PRN PO Fluticasone Propionate (FLONASE NASAL SPRAY) 2 SPRAY DAILY NASAL (CKD) Methylprednisolone Sodium Succinate (Solu-Medrol 40 MG Vial) 40 MG DAILY IV Furosemide (LASIX 100MG) 60 MG Q8H IV Sodium Chloride (OCEAN 0.65% 45 ML NASAL SOLN) 1 SPRAY Q6H PRN PRN NASAL Aspirin (ASPIRIN 81MG CHEW) 81 MG DAILY PO Clopidogrel Bisulfate (PLAVIX) 75 MG DAILY PO Loratadine (CLARITIN) 10 MG DAILY PO Insulin Human Lispro (HumaLOG 100 UNITS/ML) 0 AC HS SUBQ Dextrose/Water (DEXTROSE 10%) 125 ML ASDIR PRN IV (CKD) Dextrose/Water (DEXTROSE 10%) 250 ML ASDIR PRN IV (CKD) Glucagon (GLUCAGON) 1 MG ASDIR PRN IM Atorvastatin Calcium (Lipitor) 80 MG DAILY@2100 PO Acetaminophen (TYLENOL 325MG) 650 MG Q4H PRN PRN PO Metoprolol Tartrate (LOPRESSOR) 25 MG Q12HR PO Enoxaparin Sodium (LOVENOX) 30 MG Q24H SUBQ Budesonide (PULMICORT) 0.5 MG RTQ12H NEB Formoterol Fumarate (PERFOROMIST) 20 MCG RTBID NEB Albuterol/Ipratropium (IPRATR-ALBUTEROL 0.5-3 MG/3 ML) 3 ML RTQ6H NEB Albuterol/Ipratropium (IPRATR-ALBUTEROL 0.5-3 MG/3 ML) 3 ML RTQ2H PRN PRN NEB Sterile Water (WATER FOR INJECTION) 1 ML ASDIR PRN IV Vital Signs: Date Time Temp Pulse Resp B/P B/P Pulse O2 O2 Flow FiO2 Mean Ox Delivery Rate 03/10 1045 97.7 77 24 115/68 83.3 94 03/10 0658 98.6 61 20 117/59 78.3 93 03/10 0629 91 Nasal 8 52 cannula 03/10 0522 98.1 79 18 115/68 83 96 03/09 2335 97.7 67 18 90/43 59.0 93 03/09 2233 High flow 6 nasal cannula 03/09 2223 High flow 6 nasal cannula 03/09 1907 90 Nasal 5 cannula 03/09 1840 98.4 78 18 124/67 85.6 96 03/09 1406 Nasal 8 cannula 24 hour I O ending at 0700: 03/10 0700 03/09 1900 Intake Total Output Total 900 700 Balance -900 -700 Output, Urine 900 700 PATIENT WEIGHT: Weight (lb): 264 Weight (oz): 8.88 Weight (kg): 120.000 Free Text Obj Notes Free Text Obj Notes: PHYSICAL EXAMINATION: General appearance: alert , on 5 L NC, no acute distress, obese Head/Eyes: atraumatic, face is symmetric Neck: supple, no masses or swelling Cardiovascular: regular rate rhythm, normal heart sounds Respiratory: Decreased breath sounds bilaterally, no distress Abdomen/GI: active bowel sounds, soft, non-tender, obese Extremities: moves all, PIO LE edema, no cyanosis Neuro/HAND STONER: alert OX3, no focal deficits Skin: dry, intact Psychiatry: mood appropriate Diagnosis, Assessment Plan Free Text DxA P Notes Free text DxA P notes: Acute on chronic hypoxic and hypercapnic respiratory failure On BiPAP Pulmonology follow-up Steroids Solu-Medrol , duonebs Acute on chronic systolic heart failure IV diuresis Cardiology consultation Echocardiogram EF 35 to 39% April 2023 -- 45-49% February 2024; grade 2 diastolic dysfunction Lactic acidosis Follow cultures -- blood cx coag neg staph in 4 -- repeat Continue antibiotics Elevated troponins --like;y type 2 MA H/O disease, cardiac stents cardiology consulted ASA, plavix, statin, beta lisa CKD stage III -- Cr -- 1.4 . 1.7 Pulmonary nodules right upper and lower lobes similar to April 2023 Diabetes mellitus type 2 A1c, SSI, home medications --glipizide and aspart ; schedule Lantus Hypertension blood pressure controlled Morbid obesity BMI 41 --OHS/DIANNE Uses CPAP inconsistently at home Needs lifestyle modification with diet and exercise Dyslipidemia DVT prophylaxis Lovenox -- more alert -- monitor blood sugars -- wean BIPAP -- continue diuresis 03/03/24 --- Acute on chronic hypoxic and hypercapnic respiratory failure, pulmonary edema BiPAP, nasal cannula oxygen, nonrebreather--wean as tolerated pulmonology follow-up --- steroids, DuoNebs --- Acute on chronic systolic heart failure IV diuresis cardiology follow-up Elevated troponins type II MA --- Bacteremia repeat cultures consult ID ; leukocytosis --- CKD stage III creatinine stable 1.4 ; hyponatremia --- Pulmonary nodules -stable pulmonology follow-up --- Diabetes mellitus type 2 increase Lantus; A1c 7.9 --- Morbid obesity BMI 42 OHS, DIANNE needs lifestyle modification --- Dyslipidemia --- DVT prophylaxis Lovenox Wean oxygen as tolerated Increase Lantus monitor blood sugars 03/04/2024 Acute on chronic hypoxic respiratory failure, continue oxygen/BiPAP, on IV steroids Acute on chronic systolic and diastolic CHF EF 45 to 49% with acute pulm edema, continue IV diuresis Type II MA Bacteremia, ID following, on IV antibiotics CKD stage III Diabetes mellitus type 2--- Lantus/lispro regimen Wears 6-8 L of oxygen at home. Still significantly volume overloaded 03/10/24 --- Acute on chronic hypoxic and hypercapnic respiratory failure, pulmonary edema wean oxygen as tolerated pulmonology follow-up --- steroids, DuoNebs --- Acute on chronic systolic heart failure IV diuresis cardiology follow-up Elevated troponins type II MA --- Bacteremia repeat cultures negative to date consulted ID ; leukocytosis --- CKD stage III creatinine stable 1.4 1.1; hyponatremia resolved --- Pulmonary nodules -stable pulmonology follow-up --- Diabetes mellitus type 2 increase Lantus; A1c 7.9 ; DC glipizide for hypoglycemia --- Morbid obesity BMI 42 OHS, DIANNE needs lifestyle modification --- Dyslipidemia --- DVT prophylaxis Lovenox Wean oxygen as tolerated --- on 5 L now Monitor blood sugars --- fluctuating because of patient's noncompliance with diet -- Need for 10 L concentrator to be determined at 1504 RPT #:[id number] END OF REPORT [facility] 2024-03-10 10:56:00 [facility] ([facility] Cardiology Progress Note REPORT#:[id number] REPORT STATUS: Signed REPORT INITIALIZATION DATE:03/10/24 TIME: 1055 PATIENT: WILLI MERRITT UNIT #: [id number] ROOM/BED: [place] [id number] : 52 AGE: 73 SEX: M ATTEND: Lisa Layton MD ADM AUTHOR: Brooke Calzada NP REPT SERVICE DT/TIME: 03/10/24 1056 * ALL edits or amendments must be made on the electronic/computer document * Brooke Calzada 03/10/24 1056: Subjective Chief complaint: overall appears better. Objective General VS/I O: 24 hour I O ending at 0700: 03/10 0700 03/09 1900 Intake Total Output Total 900 700 Balance -900 -700 Output, Urine 900 700 Vital Signs: Date Time Temp Pulse Resp B/P B/P Pulse O2 O2 Flow FiO2 Mean Ox Delivery Rate 03/10 1045 97.7 77 24 115/68 83.3 94 03/10 0658 98.6 61 20 117/59 78.3 93 03/10 0629 91 Nasal 8 52 cannula 03/10 0522 98.1 79 18 115/68 83 96 03/09 2335 97.7 67 18 90/43 59.0 93 03/09 2233 High flow 6 nasal cannula 03/09 2223 High flow 6 nasal cannula 03/09 1907 90 Nasal 5 cannula 03/09 1840 98.4 78 18 124/67 85.6 96 03/09 1406 Nasal 8 cannula 03/09 1109 97.9 82 17 117/61 80 91 PATIENT WEIGHT: Weight (lb): 264 Weight (oz): 8.88 Weight (kg): 120.000 Medications: Active Meds + DC'd Last 24 Hrs Insulin Glargine (Semglee) 30 UNITS BID SUBQ Diphenhydramine HCl (BENADRYL) 25 MG Q6H PRN PRN PO Fluticasone Propionate (FLONASE NASAL SPRAY) 2 SPRAY DAILY NASAL (CKD) Methylprednisolone Sodium Succinate (Solu-Medrol 40 MG Vial) 40 MG DAILY IV Furosemide (LASIX 100MG) 60 MG Q8H IV Sodium Chloride (OCEAN 0.65% 45 ML NASAL SOLN) 1 SPRAY Q6H PRN PRN NASAL Aspirin (ASPIRIN 81MG CHEW) 81 MG DAILY PO Clopidogrel Bisulfate (PLAVIX) 75 MG DAILY PO Loratadine (CLARITIN) 10 MG DAILY PO Insulin Human Lispro (HumaLOG 100 UNITS/ML) 0 AC HS SUBQ Dextrose/Water (DEXTROSE 10%) 125 ML ASDIR PRN IV (CKD) Dextrose/Water (DEXTROSE 10%) 250 ML ASDIR PRN IV (CKD) Glucagon (GLUCAGON) 1 MG ASDIR PRN IM Atorvastatin Calcium (Lipitor) 80 MG DAILY@2100 PO Acetaminophen (TYLENOL 325MG) 650 MG Q4H PRN PRN PO Metoprolol Tartrate (LOPRESSOR) 25 MG Q12HR PO Enoxaparin Sodium (LOVENOX) 30 MG Q24H SUBQ Budesonide (PULMICORT) 0.5 MG RTQ12H NEB Formoterol Fumarate (PERFOROMIST) 20 MCG RTBID NEB Albuterol/Ipratropium (IPRATR-ALBUTEROL 0.5-3 MG/3 ML) 3 ML RTQ6H NEB Albuterol/Ipratropium (IPRATR-ALBUTEROL 0.5-3 MG/3 ML) 3 ML RTQ2H PRN PRN NEB Sterile Water (WATER FOR INJECTION) 1 ML ASDIR PRN IV Physical Exam General appearance: alert, awake Head/Eyes: atraumatic ENT: moist mucosal membranes Neck: non-tender Cardiovascular: CV assessment: regular rate and rhythm Respiratory: decreased breath sounds, rales Abdomen: soft, non-tender Lower extremity: LE assessment: edema Diagnosis, Assessment Plan Hospital course to date: Echocardiogram done on 02/24/2024 showed EF about 45% to 50%. Right ventricular systolic function is also reduced. ASSESSMENT AND PLAN: A 73-year-old male patient with history of coronary artery disease, chronic systolic heart failure, hypertension, comes with acute respiratory failure. 1. Acute respiratory failure. Continue O2 as per Primary Service 2. Acute on chronic systolic heart failure. Continue home medicine. We will resume her home medicine and follow up. Keep him on fluid restricted diet. Continue Lasix to 40 mg IV bid. Improving 3. Coronary artery disease, mild troponin elevation consistent with type 2 myocardial infarction, especially given hypoxia. Plan: We will continue to monitor closely. Further workup can be done at a later date, possibly as an outpatient. 4. Hypertension. Continue home medications. 5. Diabetes mellitus. Continue per primary service. Okay to DC from CV standpoint POC discussed w. Dr. Bubba David,Steffanie 04/09/24 0957: Attestations Physician Attestation Agree w/findings plan: I have seen and examined at bedside. I have reviewed the relevant test results. I agree with the note by TABLE COVER FOLDER at 1057 at 1000 RPT #:[id number] END OF REPORT [facility] 2024-03-09 22:32:00 [facility] ([facility]) Infectious Dis. Progress Note REPORT#:[id number] REPORT STATUS: Signed REPORT INITIALIZATION DATE:03/09/24 TIME: 2231 PATIENT: WILLI MERRITT UNIT #: [id number] ROOM/BED: [place] [id number] : 52 AGE: 73 SEX: M ATTEND: Lisa Layton MD ADM AUTHOR: Elyse Jenkins MD REPT SERVICE DT/TIME: 03/09/242231 * ALL edits or amendments must be made on the electronic/computer document * Subjective Chief complaint: SOB POS BLOOD CX Objective Physical Exam Head/Eyes: atraumatic, clear cornea, EOMI, normal conjunctiva/sclera, normal eyelids/periorb, normocephalic, PERRL ENT: normal dentition, normal nose, normal pharynx, normal sinus Neck: full range of motion, non-tender, normal thyroid, supple/no meningismus, no bruit/NL carotids, no JVD, no masses or swelling, no lymphadenopathy Cardiovascular: regular rate rhythm Respiratory: clear to auscultation, no distress Abdomen: non-tender, soft, no distention, no guarding, no mass/organomegaly, no rebound Genitourinary: no flank pain Lymphatics: axilla normal, inguinal normal, neck normal, no lymphadenopathy Psychiatry: unable to evaluate Diagnosis, Assessment Plan Free Text A P: POS BLOOD CX AWAIT IDENTIFICATION BUT POSSIBLY CONTAMINANT CANNOT BE RULED OUT AC HYPO RESP FAILURE CHF FLUID OVERLOAD DIANNE OHS LEELA/CKI CT CURRENT TX AWAIT BLOOD CX RESULT WILL FOLLOW OFF ALL ANTIBX WILL FOLLOW at 2342 RPT #:[id number] END OF REPORT [facility] 2024-03-09 15:42:00 [facility] ([facility]) Pulmonology Progress Note REPORT#:[id number] REPORT STATUS: Signed REPORT INITIALIZATION DATE:03/09/24 TIME: 1541 PATIENT: WILLI MERRITT UNIT #: [id number] ROOM/BED: [place] [id number] : 52 AGE: 73 SEX: M ATTEND: Lisa Layton MD ADM AUTHOR: Dakota Melgar MD REPT SERVICE DT/TIME: 03/09/241541 * ALL edits or amendments must be made on the electronic/computer document * Subjective Chief complaint: sob Nursing reports: No: bed ridden, calm (occasional verbal outbursts), confused, shortness of breath. Comments: Sitting up on the edge of bed eating krupa crackers. He is upset he is not being given more food. Oxygen has been turned back down to 8 L/min nasal cannula. On discussion with respiratory therapy, it appears the patient turns up his own oxygen without any guidance from his healthcare providers. The patient reiterates he will not have another blood gas done to evaluate for possible nocturnal NIV after discharge. He is agreeable to turn oxygen to 5 L/min nasal cannula to determine whether this is sufficient to meet his needs at discharge. Above discussed with Dr. Schofield. ROS negative for f/c, n/v. Objective General VS/I O: Last Documented: Result Date Time O2 Delivery Nasal cannula 03/09 1406 O2 Flow Rate 8 03/09 1406 Pulse Ox 91 03/09 1109 B/P 117/61 03/09 1109 B/P Mean 80 03/09 1109 Temp 97.9 03/09 1109 Pulse 82 03/09 1109 Resp 17 03/09 1109 FiO2 52 03/09 0649 24 hour I O ending at 0700: 03/08 1900 03/09 0700 Intake Total 500 Output Total 700 1850 Balance -700 -1350 Intake, Oral 500 Output, Urine 700 1850 PATIENT WEIGHT: Weight (lb): 264 Weight (oz): 8.88 Weight (kg): 120.000 Medications: Active Meds + DC'd Last 24 Hrs Insulin Glargine (Semglee) 30 UNITS BID SUBQ Insulin Glargine (Semglee) 25 UNITS BID SUBQ (DC) Diphenhydramine HCl (BENADRYL) 25 MG Q6H PRN PRN PO Fluticasone Propionate (FLONASE NASAL SPRAY) 2 SPRAY DAILY NASAL (CKD) Methylprednisolone Sodium Succinate (Solu-Medrol 40 MG Vial) 40 MG DAILY IV Furosemide (LASIX 100MG) 60 MG Q8H IV Sodium Chloride (OCEAN 0.65% 45 ML NASAL SOLN) 1 SPRAY Q6H PRN PRN NASAL Aspirin (ASPIRIN 81MG CHEW) 81 MG DAILY PO Clopidogrel Bisulfate (PLAVIX) 75 MG DAILY PO Loratadine (CLARITIN) 10 MG DAILY PO Insulin Human Lispro (HumaLOG 100 UNITS/ML) 0 AC HS SUBQ Dextrose/Water (DEXTROSE 10%) 125 ML ASDIR PRN IV (CKD) Dextrose/Water (DEXTROSE 10%) 250 ML ASDIR PRN IV (CKD) Glucagon (GLUCAGON) 1 MG ASDIR PRN IM Atorvastatin Calcium (Lipitor) 80 MG DAILY@2100 PO Acetaminophen (TYLENOL 325MG) 650 MG Q4H PRN PRN PO Metoprolol Tartrate (LOPRESSOR) 25 MG Q12HR PO Enoxaparin Sodium (LOVENOX) 30 MG Q24H SUBQ Budesonide (PULMICORT) 0.5 MG RTQ12H NEB Formoterol Fumarate (PERFOROMIST) 20 MCG RTBID NEB Albuterol/Ipratropium (IPRATR-ALBUTEROL 0.5-3 MG/3 ML) 3 ML RTQ6H NEB Albuterol/Ipratropium (IPRATR-ALBUTEROL 0.5-3 MG/3 ML) 3 ML RTQ2H PRN PRN NEB Sterile Water (WATER FOR INJECTION) 1 ML ASDIR PRN IV Dietitian nutrition assessment The data set between the solid lines has been imported from the dietitian's assessment. BMI Calculated: 42.7 Nutrition related diagnosis: Nutrition diagnosis details: Nutrition problem: Nutrition etiology: Nutrition signs and symptoms: Nutrition prescription: Dietitian name: Assessment completed: Physical Exam General appearance: respiratory support, alert, awake Neck: no JVD, no lymphadenopathy Cardiovascular: normal S1/S2, regular rate rhythm, no murmur, no rub, no gallop Respiratory/chest: decreased breath sounds, on oxygen, rales Abdomen: soft, normal bowel sounds, no distention Extremities: edema, normal temperature, no clubbing Musculoskeletal: normal inspection, no muscle spasm Neuro/HAND STONER: alert, oriented X 3, CNII-XII intact, no motor deficits Skin: dry, stasis hyperpigmentation Lymphatics: neck normal, no lymphadenopathy Psychiatry: normal affect, normal mood Results Findings/Data: Laboratory Tests 03/09/24114: [Embedded Image Not Available] Laboratory Tests 03/08 03/08 03/09 03/09 03/09 1604 2002 0115 0741 1106 Chemistry Sodium (134.0 - 147.0 mmol/l) 138 Potassium (3.6 - 5.2 mmol/L) 3.9 Chloride (98.0 - 107.0 mmol/l) 95 L Carbon Dioxide (21.0 - 33.0 mmol/l) 36.6 H Anion Gap (0 - 20) 10.3 BUN (7.0 - 18.0 mg/dl) 30 H Creatinine (0.60 - 1.30 mg/dL) 1.54 H Estimated Creat Clear (>30 mL/min) 40 Glomerular Filtr Rate (mL/min) 48 Glucose (70.0 - 110.0 mg/dl) 297 H POC Glucose (70 - 110 mg/dL) 350 H 254 H 253 H 262 H Calcium (8.0 - 10.5 mg/dl) 8.0 Laboratory Tests 03/09 115 Hematology WBC (4.5 - 11.0 K/mm3) 12.5 H RBC (4.40 - 5.90 M/mm3) 3.70 L Hgb (13.0 - 17.0 gm/dL) 10.3 L Hct (36.0 - 48.0 %) 33.9 L MCV (80.0 - 94.0 UM3) 91.6 MCH (25.5 - 32.5 UUG) 27.8 MCHC (29.0 - 35.5 gm/dL) 30.4 RDW (11.5 - 15.0 %) 18.8 H Plt Count (150 - 400 K/mm3) 176 MPV (7.4 - 10.4 fl) 12.1 H Neut % (Auto) (49.0 - 76.0 %) 81.5 H Lymph % (Auto) (23.0 - 38.0 %) 5.7 L [place] % (Auto) (1.0 - 10.0 %) 11.6 H Eos % (Auto) (1.0 - 5.0 %) 0.2 L Baso % (Auto) (0.0 - 1.0 %) 0.1 Neut # (Auto) (2.4 - 6.3 K/mm3) 10.2 H Lymph # (Auto) (1.2 - 4.0 K/mm3) 0.7 L [place] # (Auto) (0.0 - 0.6 K/mm3) 1.5 H Eos # (Auto) (0.0 - 0.7 K/MM3) 0.0 Baso # (Auto) (0.0 - 0.2 K/mm3) 0.0 Absolute Nucleated RBC (0.00 - 0.01 X10 3uL) 0.00 Immature Gran % (0.0 - 0.4 %) 0.9 H Nucleated RBC % (0.0 - 0.1 %) 0.0 Immature Gran # (0.00 - 0.07 x10 3/uL) 0.11 H Diagnosis, Assessment Plan Free Text A P: 1. Acute hypercapnic/hypoxemic respiratory failure on chronic hypoxemic respiratory failure O2 via high flow nasal cannula Wean to baseline of 6 L/min as tolerated Worsened related to pulmonary edema Continue diuresis as tolerated -> increased diuretic wean oxygen as tolerated 2. CHF exacerbation significant fluid overload recent echo: EF 45-49% with grade 2 DD, moderately dilated RV and reduced RV systolic function continue IV Lasix fluid restrict cardiology following 3. DIANNE/OHS Patient reports having inconsistently using home CPAP Will continue to use BiPAP nightly and as needed while hospitalized 4. Acute kidney injury with chronic kidney disease? Continue to follow BUN and creatinine May improve with diuresis monitor electrolytes/renal function 5. Hypokalemia Replace as needed 6. Bacteremia contaminant? ID following follow repeat blood cultures Noncompliant with diet/fluid. Wean oxygen as tolerate to determine if he needs 10 Lpm O2 concentrator. Refused ABG. Orders: Procedure Date/time Status CBC W/AUTO DIFF 03/10 500 Active BASIC METABOLIC PANEL 03/10 500 Active Plan discussed with: patient, primary care physician (Tunde Schofield MD), nurse, RT at 1545 RPT #:[id number] END OF REPORT [facility] 2024-03-09 13:26:00 [facility] ([facility]) Cardiology Progress Note REPORT#:[id number] REPORT STATUS: Signed REPORT INITIALIZATION DATE:03/09/24 TIME: 132 PATIENT: WILLI MERRITT UNIT #: [id number] ROOM/BED: [place] [id number] : [birth year] AGE: 73 SEX: M ATTEND: Lisa Layton MD ADM AUTHOR: Brooke Calzada TABLE COVER FOLDER REPT SERVICE DT/TIME: 03/09/24 1326 * ALL edits or amendments must be made on the electronic/computer document * Brooke Calzada 03/09/24 1326: Subjective Chief complaint: overall appears better. Objective General VS/I O: 24 hour I O ending at 0700: 03/09 0700 03/08 1900 Intake Total 500 Output Total 1850 700 Balance -1350 -700 Intake, Oral 500 Output, Urine 1850 700 Vital Signs: Date Time Temp Pulse Resp B/P B/P Pulse O2 O2 Flow FiO2 Mean Ox Delivery Rate 03/09 1109 97.9 82 17 117/61 80 91 03/09 0650 97.9 79 18 109/71 84.0 100 03/09 0649 98 Nasal 8 52 cannula 03/09 0355 79 18 121/82 94.9 97 03/08 2322 98.4 79 18 129/76 93.9 97 03/089 Nasal 15 cannula 03/08 2004 98.2 77 14 127/71 89.3 95 03/08 1950 99 Nasal 15 cannula 03/08 1605 98.6 84 22 109/56 73.7 100 PATIENT WEIGHT: Weight (lb): 264 Weight (oz): 8.88 Weight (kg): 120.000 Medications: Active Meds + DC'd Last 24 Hrs Insulin Glargine (Semglee) 30 UNITS BID SUBQ Insulin Glargine (Semglee) 25 UNITS BID SUBQ (DC) Diphenhydramine HCl (BENADRYL) 25 MG Q6H PRN PRN PO Fluticasone Propionate (FLONASE NASAL SPRAY) 2 SPRAY DAILY NASAL (CKD) Methylprednisolone Sodium Succinate (Solu-Medrol 40 MG Vial) 40 MG DAILY IV Furosemide (LASIX 100MG) 60 MG Q8H IV Sodium Chloride (OCEAN 0.65% 45 ML NASAL SOLN) 1 SPRAY Q6H PRN PRN NASAL Aspirin (ASPIRIN 81MG CHEW) 81 MG DAILY PO Clopidogrel Bisulfate (PLAVIX) 75 MG DAILY PO Loratadine (CLARITIN) 10 MG DAILY PO Insulin Human Lispro (HumaLOG 100 UNITS/ML) 0 AC HS SUBQ Dextrose/Water (DEXTROSE 10%) 125 ML ASDIR PRN IV (CKD) Dextrose/Water (DEXTROSE 10%) 250 ML ASDIR PRN IV (CKD) Glucagon (GLUCAGON) 1 MG ASDIR PRN IM Atorvastatin Calcium (Lipitor) 80 MG DAILY@2100 PO Acetaminophen (TYLENOL 325MG) 650 MG Q4H PRN PRN PO Metoprolol Tartrate (LOPRESSOR) 25 MG Q12HR PO Enoxaparin Sodium (LOVENOX) 30 MG Q24H SUBQ Budesonide (PULMICORT) 0.5 MG RTQ12H NEB Formoterol Fumarate (PERFOROMIST) 20 MCG RTBID NEB Albuterol/Ipratropium (IPRATR-ALBUTEROL 0.5-3 MG/3 ML) 3 ML RTQ6H NEB Albuterol/Ipratropium (IPRATR-ALBUTEROL 0.5-3 MG/3 ML) 3 ML RTQ2H PRN PRN NEB Sterile Water (WATER FOR INJECTION) 1 ML ASDIR PRN IV Physical Exam General appearance: alert, awake Head/Eyes: atraumatic ENT: moist mucosal membranes Neck: non-tender Cardiovascular: CV assessment: regular rate and rhythm Respiratory: decreased breath sounds, rales Abdomen: soft, non-tender Lower extremity: LE assessment: edema Diagnosis, Assessment Plan Hospital course to date: Echocardiogram done on 02/24/2024 showed EF about 45% to 50%. Right ventricular systolic function is also reduced. ASSESSMENT AND PLAN: A 73-year-old male patient with history of coronary artery disease, chronic systolic heart failure, hypertension, comes with acute respiratory failure. 1. Acute respiratory failure. Continue O2 as per Primary Service 2. Acute on chronic systolic heart failure. Continue home medicine. We will resume her home medicine and follow up. Keep him on fluid restricted diet. Continue Lasix to 40 mg IV bid. Improving 3. Coronary artery disease, mild troponin elevation consistent with type 2 myocardial infarction, especially given hypoxia. Plan: We will continue to monitor closely. Further workup can be done at a later date, possibly as an outpatient. 4. Hypertension. Continue home medications. 5. Diabetes mellitus. Continue as per primary service. Okay to DC from CV standpoint POC discussed with Steffanie Ahn 03/24/24 0025: Attestations Physician Attestation Agree w/findings plan: I have seen and examined the patient at bedside. I have reviewed the relevant test results and formulated the assessment and plan. I agree with the note by TABLE COVER FOLDER. at 1326 at 0029 RPT #:[id number] END OF REPORT [facility] 2024-03-09 12:14:00 [facility] ([facility] Hospitalist Progress Note REPORT#:[id number] REPORT STATUS: Signed REPORT INITIALIZATION DATE:03/09/24 TIME: 1213 PATIENT: WILLI MERRITT UNIT #: [id number] ROOM/BED: [place] [id number] : [birth year] AGE: 73 SEX: M ATTEND: Lisa Layton MD ADM AUTHOR: Tricia Schofield MD REPT SERVICE DT/TIME: 03/09/24 1214 * ALL edits or amendments must be made on the electronic/computer document * Subjective Chief complaint: Follow-up acute on chronic respiratory failure On 5 L nasal cannula oxygen Shortness of breath Review of Systems Constitutional: Denies: fever. Respiratory: Reports: SOB. Denies: productive cough (sputum). Cardiovascular: Denies: chest pain. GI: Denies: nausea, vomiting. Objective General VS/I O: Laboratory Tests 03/09/24 0115: [Embedded Image Not Available] Active Meds + DC'd Last 24 Hrs Insulin Glargine (Semglee) 30 UNITS BID SUBQ Insulin Glargine (Semglee) 25 UNITS BID SUBQ (DC) Diphenhydramine HCl (BENADRYL) 25 MG Q6H PRN PRN PO Fluticasone Propionate (FLONASE NASAL SPRAY) 2 SPRAY DAILY NASAL (CKD) Methylprednisolone Sodium Succinate (Solu-Medrol 40 MG Vial) 40 MG DAILY IV Furosemide (LASIX 100MG) 60 MG Q8H IV Sodium Chloride (OCEAN 0.65% 45 ML NASAL SOLN) 1 SPRAY Q6H PRN PRN NASAL Aspirin (ASPIRIN 81MG CHEW) 81 MG DAILY PO Clopidogrel Bisulfate (PLAVIX) 75 MG DAILY PO Loratadine (CLARITIN) 10 MG DAILY PO Insulin Human Lispro (HumaLOG 100 UNITS/ML) 0 AC HS SUBQ Dextrose/Water (DEXTROSE 10%) 125 ML ASDIR PRN IV (CKD) Dextrose/Water (DEXTROSE 10%) 250 ML ASDIR PRN IV (CKD) Glucagon (GLUCAGON) 1 MG ASDIR PRN IM Atorvastatin Calcium (Lipitor) 80 MG DAILY@2100 PO Acetaminophen (TYLENOL 325MG) 650 MG Q4H PRN PRN PO Metoprolol Tartrate (LOPRESSOR) 25 MG Q12HR PO Enoxaparin Sodium (LOVENOX) 30 MG Q24H SUBQ Budesonide (PULMICORT) 0.5 MG RTQ12H NEB Formoterol Fumarate (PERFOROMIST) 20 MCG RTBID NEB Albuterol/Ipratropium (IPRATR-ALBUTEROL 0.5-3 MG/3 ML) 3 ML RTQ6H NEB Albuterol/Ipratropium (IPRATR-ALBUTEROL 0.5-3 MG/3 ML) 3 ML RTQ2H PRN PRN NEB Sterile Water (WATER FOR INJECTION) 1 ML ASDIR PRN IV Vital Signs: Date Time Temp Pulse Resp B/P B/P Pulse O2 O2 Flow FiO2 Mean Ox Delivery Rate 03/09 0650 97.9 79 18 109/71 84.0 100 03/09 0649 98 Nasal 8 52 cannula 03/09 0355 79 18 121/82 94.9 97 03/08 2322 98.4 79 18 129/76 93.9 97 03/089 Nasal 15 cannula 03/08 2004 98.2 77 14 127/71 89.3 95 03/08 1950 99 Nasal 15 cannula 03/08 1605 98.6 84 22 109/56 73.7 100 24 hour I O ending at 0700: 03/09 0700 03/08 1900 Intake Total 500 Output Total 1850 700 Balance -1350 -700 Intake, Oral 500 Output, Urine 1850 700 PATIENT WEIGHT: Weight (lb): 264 Weight (oz): 8.88 Weight (kg): 120.000 Free Text Obj Notes Free Text Obj Notes: PHYSICAL EXAMINATION: General appearance: alert , on 5 L NC, no acute distress, obese Head/Eyes: atraumatic, face is symmetric Neck: supple, no masses or swelling Cardiovascular: regular rate rhythm, normal heart sounds Respiratory: Decreased breath sounds bilaterally, no distress Abdomen/GI: active bowel sounds, soft, non-tender, obese Extremities: moves all, PIO LE edema, no cyanosis Neuro/HAND STONER: alert OX3, no focal deficits Skin: dry, intact Psychiatry: mood appropriate Diagnosis, Assessment Plan Free Text DxA P Notes Free text DxA P notes: Acute on chronic hypoxic and hypercapnic respiratory failure On BiPAP Pulmonology follow-up Steroids Solu-Medrol , duonebs Acute on chronic systolic heart failure IV diuresis Cardiology consultation Echocardiogram EF 35 to 39% April 2023 -- 45-49% February 2024; grade 2 diastolic dysfunction Lactic acidosis Follow cultures -- blood cx coag neg staph in 4 -- repeat Continue antibiotics Elevated troponins --like;y type 2 MA H/O disease, cardiac stents cardiology consulted ASA, plavix, statin, beta lisa CKD stage III -- Cr -- 1.4 . 1.7 Pulmonary nodules right upper and lower lobes similar to April 2023 Diabetes mellitus type 2 A1c, SSI, home medications --glipizide and aspart ; schedule Lantus Hypertension blood pressure controlled Morbid obesity BMI 41 --OHS/DIANNE Uses CPAP inconsistently at home Needs lifestyle modification with diet and exercise Dyslipidemia DVT prophylaxis Lovenox -- more alert -- monitor blood sugars -- wean BIPAP -- continue diuresis 03/03/ --- Acute on chronic hypoxic and hypercapnic respiratory failure, pulmonary edema BiPAP, nasal cannula oxygen, nonrebreather--wean as tolerated pulmonology follow-up --- steroids, DuoNebs --- Acute on chronic systolic heart failure IV diuresis cardiology follow-up Elevated troponins type II MA --- Bacteremia repeat cultures consult ID ; leukocytosis --- CKD stage III creatinine stable 1.4 ; hyponatremia --- Pulmonary nodules -stable pulmonology follow-up --- Diabetes mellitus type 2 increase Lantus; A1c 7.9 --- Morbid obesity BMI 42 OHS, DIANNE needs lifestyle modification --- Dyslipidemia --- DVT prophylaxis Lovenox Wean oxygen as tolerated Increase Lantus monitor blood sugars 03/04/2024 Acute on chronic hypoxic respiratory failure, continue oxygen/BiPAP, on IV steroids Acute on chronic systolic and diastolic CHF EF 45 to 49% with acute pulm edema, continue IV diuresis Type II MA Bacteremia, ID following, on IV antibiotics CKD stage III Diabetes mellitus type 2--- Lantus/lispro regimen Wears 6-8 L of oxygen at home. Still significantly volume overloaded 03/09/24 --- Acute on chronic hypoxic and hypercapnic respiratory failure, pulmonary edema wean oxygen as tolerated pulmonology follow-up --- steroids, DuoNebs --- Acute on chronic systolic heart failure IV diuresis cardiology follow-up Elevated troponins type II MA --- Bacteremia repeat cultures negative to date consulted ID ; leukocytosis --- CKD stage III creatinine stable 1.4 1.1; hyponatremia resolved --- Pulmonary nodules -stable pulmonology follow-up --- Diabetes mellitus type 2 increase Lantus; A1c 7.9 ; DC glipizide for hypoglycemia --- Morbid obesity BMI 42 OHS, DIANNE needs lifestyle modification --- Dyslipidemia --- DVT prophylaxis Lovenox Wean oxygen as tolerated --- on 5 L today Blood sugars improving continue to monitor Discussed with Dr. Melgar autocad electrical designer Patient noncompliant with diet and fluid -- Need for 10 L concentrator to be determined at 0641 RPT #:[id number] END OF REPORT [facility] 2024-03-08 16:31:00 [facility] ([facility]) Pulmonology Progress Note REPORT#:[id number] REPORT STATUS: Signed REPORT INITIALIZATION DATE:03/08/24 TIME: 163 PATIENT: WILLI MERRITT UNIT #: [id number] ROOM/BED: [place] [id number] : 52 AGE: 73 SEX: M ATTEND: Lisa Layton MD ADM AUTHOR: Dakota Melgar MD REPT SERVICE DT/TIME: 03/08/24 1631 * ALL edits or amendments must be made on the electronic/computer document * Subjective Chief complaint: sob Comments: He is now on 12 L/m nasal cannula. Lying supine in no distress. RN notes he continues to demand extra food. He has potato chips on his tray. He is sleeping but easily arousable and in no distress. He refused ABG last evening. ROS negative for f/c, n/v. Objective General VS/I O: Last Documented: Result Date Time Pulse Ox 100 03/08 1605 B/P 109/56 03/08 1605 B/P Mean 73.7 03/08 1605 Temp 98.6 03/08 1605 Pulse 84 03/08 1605 Resp 22 03/08 1605 O2 Delivery High flow nasal cannula 03/08 1046 O2 Flow Rate 7 03/08 1046 FiO2 52 03/08 0651 24 hour I O ending at 0700: 03/07 1900 03/08 0700 Intake Total 250 Output Total 800 Balance -800 250 Intake, Oral 250 Output, Urine 800 PATIENT WEIGHT: Weight (lb): 264 Weight (oz): 8.88 Weight (kg): 120.000 Medications: Active Meds + DC'd Last 24 Hrs Insulin Glargine (Semglee) 25 UNITS BID SUBQ Diphenhydramine HCl (BENADRYL) 25 MG Q6H PRN PRN PO Insulin Glargine (Semglee) 15 UNITS BID SUBQ (DC) Fluticasone Propionate (FLONASE NASAL SPRAY) 2 SPRAY DAILY NASAL (CKD) Methylprednisolone Sodium Succinate (Solu-Medrol 40 MG Vial) 40 MG DAILY IV Furosemide (LASIX 100MG) 60 MG Q8H IV Sodium Chloride (OCEAN 0.65% 45 ML NASAL SOLN) 1 SPRAY Q6H PRN PRN NASAL Aspirin (ASPIRIN 81MG CHEW) 81 MG DAILY PO Clopidogrel Bisulfate (PLAVIX) 75 MG DAILY PO Loratadine (CLARITIN) 10 MG DAILY PO Insulin Human Lispro (HumaLOG 100 UNITS/ML) 0 AC HS SUBQ Dextrose/Water (DEXTROSE 10%) 125 ML ASDIR PRN IV (CKD) Dextrose/Water (DEXTROSE 10%) 250 ML ASDIR PRN IV (CKD) Glucagon (GLUCAGON) 1 MG ASDIR PRN IM Atorvastatin Calcium (Lipitor) 80 MG DAILY@2100 PO Acetaminophen (TYLENOL 325MG) 650 MG Q4H PRN PRN PO Metoprolol Tartrate (LOPRESSOR) 25 MG Q12HR PO Enoxaparin Sodium (LOVENOX) 30 MG Q24H SUBQ Budesonide (PULMICORT) 0.5 MG RTQ12H NEB Formoterol Fumarate (PERFOROMIST) 20 MCG RTBID NEB Albuterol/Ipratropium (IPRATR-ALBUTEROL 0.5-3 MG/3 ML) 3 ML RTQ6H NEB Albuterol/Ipratropium (IPRATR-ALBUTEROL 0.5-3 MG/3 ML) 3 ML RTQ2H PRN PRN NEB Sterile Water (WATER FOR INJECTION) 1 ML ASDIR PRN IV Dietitian nutrition assessment The data set between the solid lines has been imported from the dietitian's assessment. BMI Calculated: 42.7 Nutrition related diagnosis: Nutrition diagnosis details: Nutrition problem: Nutrition etiology: Nutrition signs and symptoms: Nutrition prescription: Dietitian name: Assessment completed: Physical Exam General appearance: respiratory support, alert, awake Neck: no JVD, no lymphadenopathy Cardiovascular: normal S1/S2, regular rate rhythm, no murmur, no rub, no gallop Respiratory/chest: decreased breath sounds, on oxygen, rales Abdomen: soft, normal bowel sounds, no distention Extremities: edema, normal temperature, no clubbing Musculoskeletal: normal inspection, no muscle spasm Neuro/HAND STONER: alert, oriented X 3, CNII-XII intact, no motor deficits Skin: dry, stasis hyperpigmentation Lymphatics: neck normal, no lymphadenopathy Psychiatry: normal affect, normal mood Diagnosis, Assessment Plan Free Text A P: 1. Acute hypercapnic/hypoxemic respiratory failure on chronic hypoxemic respiratory failure O2 via high flow nasal cannula Wean to baseline of 6 L/min as tolerated Worsened related to pulmonary edema Continue diuresis as tolerated -> increased diuretic wean oxygen as tolerated 2. CHF exacerbation significant fluid overload recent echo: EF 45-49% with grade 2 DD, moderately dilated RV and reduced RV systolic function continue IV Lasix fluid restrict cardiology following 3. DIANNE/OHS Patient reports having inconsistently using home CPAP Will continue to use BiPAP nightly and as needed while hospitalized 4. Acute kidney injury with chronic kidney disease? Continue to follow BUN and creatinine May improve with diuresis monitor electrolytes/renal function 5. Hypokalemia Replace as needed 6. Bacteremia contaminant? ID following follow repeat blood cultures Noncompliant with diet/fluid. Wean oxygen as tolerate - might need a 10 Lpm oxygen concentrator. Refused ABG. at 1633 RPT #:[id number] END OF REPORT [facility] 2024-03-08 15:35:00 [facility] ([facility]) Infectious Dis. Progress Note REPORT#:[id number] REPORT STATUS: Signed REPORT INITIALIZATION DATE:03/08/24 TIME: 1534 PATIENT: WILLI MERRITT UNIT #: [id number] ROOM/BED: [place] [id number] : 52 AGE: 73 SEX: M ATTEND: Lisa Layton MD ADM AUTHOR: Elyse Jenkins MD REPT SERVICE DT/TIME: 03/08/241534 * ALL edits or amendments must be made on the electronic/computer document * Subjective Chief complaint: SOB POS BLOOD CX Patient reports: No: complaints. Nursing reports: No: complaints. Unable to obtain: medical condition, patient condition Objective General VS/I O: Vital Signs Date Temp Pulse Resp B/P B/P Mean Pulse Ox FiO2 03/07-03/08 36.8-37.1 68-90 14-24 104-127/56-74 73.7-90.6 91-100 52 Last Documented: Result Date Time Pulse Ox 95 03/08 2004 B/P 127/71 03/08 2004 B/P Mean 89.3 03/08 2004 Temp 36.8 03/08 2004 Pulse 77 03/08 2004 Resp 14 03/08 2004 O2 Delivery Nasal cannula 03/08 1950 O2 Flow Rate 15 03/08 1950 FiO2 52 03/08 0651 Vital Signs: Date Time Temp Pulse Resp B/P B/P Pulse O2 O2 Flow FiO2 Mean Ox Delivery Rate 03/08 2004 36.8 77 14 127/71 89.3 95 03/08 1950 99 Nasal 15 cannula 03/08 1605 37.0 84 22 109/56 73.7 100 03/08 1046 High flow 7 nasal cannula 03/08 1030 36.9 80 24 114/72 85.8 91 03/08 0651 96 Nasal 8 52 cannula 03/08 0651 37.1 68 20 124/74 90.6 100 03/08 0345 37.0 90 18 104/70 81.2 98 03/08 0015 36.9 77 18 107/60 75.5 96 03/07 2329 100 Nasal 15 cannula 24 hour I O ending at 0700: 03/08 0700 03/07 1900 Intake Total 250 Output Total 800 Balance 250 -800 Intake, Oral 250 Output, Urine 800 PATIENT WEIGHT: Weight (lb): 264 Weight (oz): 8.88 Weight (kg): 120.000 Medications: Active Meds + DC'd Last 24 Hrs Insulin Glargine (Semglee) 30 UNITS BID SUBQ Insulin Glargine (Semglee) 25 UNITS BID SUBQ (DC) Diphenhydramine HCl (BENADRYL) 25 MG Q6H PRN PRN PO Fluticasone Propionate (FLONASE NASAL SPRAY) 2 SPRAY DAILY NASAL (CKD) Methylprednisolone Sodium Succinate (Solu-Medrol 40 MG Vial) 40 MG DAILY IV Furosemide (LASIX 100MG) 60 MG Q8H IV Sodium Chloride (OCEAN 0.65% 45 ML NASAL SOLN) 1 SPRAY Q6H PRN PRN NASAL Aspirin (ASPIRIN 81MG CHEW) 81 MG DAILY PO Clopidogrel Bisulfate (PLAVIX) 75 MG DAILY PO Loratadine (CLARITIN) 10 MG DAILY PO Insulin Human Lispro (HumaLOG 100 UNITS/ML) 0 AC HS SUBQ Dextrose/Water (DEXTROSE 10%) 125 ML ASDIR PRN IV (CKD) Dextrose/Water (DEXTROSE 10%) 250 ML ASDIR PRN IV (CKD) Glucagon (GLUCAGON) 1 MG ASDIR PRN IM Atorvastatin Calcium (Lipitor) 80 MG DAILY@2100 PO Acetaminophen (TYLENOL 325MG) 650 MG Q4H PRN PRN PO Metoprolol Tartrate (LOPRESSOR) 25 MG Q12HR PO Enoxaparin Sodium (LOVENOX) 30 MG Q24H SUBQ Budesonide (PULMICORT) 0.5 MG RTQ12H NEB Formoterol Fumarate (PERFOROMIST) 20 MCG RTBID NEB Albuterol/Ipratropium (IPRATR-ALBUTEROL 0.5-3 MG/3 ML) 3 ML RTQ6H NEB Albuterol/Ipratropium (IPRATR-ALBUTEROL 0.5-3 MG/3 ML) 3 ML RTQ2H PRN PRN NEB Sterile Water (WATER FOR INJECTION) 1 ML ASDIR PRN IV Physical Exam General appearance: awake Head/Eyes: atraumatic, clear cornea, EOMI, normal conjunctiva/sclera, normal eyelids/periorb, normocephalic, PERRL ENT: normal dentition, normal nose, normal pharynx, normal sinus Neck: full range of motion, non-tender, normal thyroid, supple/no meningismus, no bruit/NL carotids, no JVD, no masses or swelling, no lymphadenopathy Cardiovascular: regular rate rhythm Respiratory: clear to auscultation, no distress Abdomen: non-tender, soft, no distention, no guarding, no mass/organomegaly, no rebound Genitourinary: no flank pain Lymphatics: axilla normal, inguinal normal, neck normal, no lymphadenopathy Psychiatry: unable to evaluate Diagnosis, Assessment Plan Free Text A P: POS BLOOD CX AWAIT IDENTIFICATION BUT POSSIBLY CONTAMINANT CANNOT BE RULED OUT AC HYPO RESP FAILURE CHF FLUID OVERLOAD DIANNE OHS LEELA/CKI CT CURRENT TX AWAIT BLOOD CX RESULT WILL FOLLOW OFF ALL ANTIBX WILL FOLLOW at 2222 [facility] #:[id number] END OF REPORT [facility] 2024-03-08 12:33:00 [facility] ([facility]) Cardiology Progress Note REPORT#:[id number] REPORT STATUS: Signed REPORT INITIALIZATION DATE:03/08/24 TIME: 1233 PATIENT: WILLI MERRITT UNIT #: [id number] ROOM/BED: [place] [id number] : 52 AGE: 73 SEX: M ATTEND: Lisa Layton MD ADM AUTHOR: Brooke Calzada TABLE COVER FOLDER REPT SERVICE DT/TIME: 03/08/24 1233 * ALL edits or amendments must be made on the electronic/computer document * Subjective Chief complaint: overall appears better. Objective General VS/I O: 24 hour I O ending at 0700: 03/08 0700 03/07 1900 Intake Total 250 Output Total 800 Balance 250 -800 Intake, Oral 250 Output, Urine 800 Vital Signs: Date Time Temp Pulse Resp B/P B/P Pulse O2 O2 Flow FiO2 Mean Ox Delivery Rate 03/08 1046 High flow 7 nasal cannula 03/08 1030 98.4 80 24 114/72 85.8 91 03/08 0651 96 Nasal 8 52 cannula 03/08 0651 98.8 68 20 124/74 90.6 100 03/08 0345 98.6 90 18 104/70 81.2 98 03/08 0015 98.4 77 18 107/60 75.5 96 03/07 2329 100 Nasal 15 cannula 03/075 Nasal 8 cannula 03/07 2011 98.4 118 18 127/71 89.9 93 03/07 1743 High flow 8 nasal cannula 03/07 1545 97.9 110 20 153/83 106.5 98 PATIENT WEIGHT: Weight (lb): 264 Weight (oz): 8.88 Weight (kg): 120.000 Medications: Active Meds + DC'd Last 24 Hrs Insulin Glargine (Semglee) 25 UNITS BID SUBQ Diphenhydramine HCl (BENADRYL) 25 MG Q6H PRN PRN PO Insulin Glargine (Semglee) 15 UNITS BID SUBQ (DC) Fluticasone Propionate (FLONASE NASAL SPRAY) 2 SPRAY DAILY NASAL (CKD) Methylprednisolone Sodium Succinate (Solu-Medrol 40 MG Vial) 40 MG DAILY IV Furosemide (LASIX 100MG) 60 MG Q8H IV Sodium Chloride (OCEAN 0.65% 45 ML NASAL SOLN) 1 SPRAY Q6H PRN PRN NASAL Aspirin (ASPIRIN 81MG CHEW) 81 MG DAILY PO Clopidogrel Bisulfate (PLAVIX) 75 MG DAILY PO Loratadine (CLARITIN) 10 MG DAILY PO Insulin Human Lispro (HumaLOG 100 UNITS/ML) 0 AC HS SUBQ Dextrose/Water (DEXTROSE 10%) 125 ML ASDIR PRN IV (CKD) Dextrose/Water (DEXTROSE 10%) 250 ML ASDIR PRN IV (CKD) Glucagon (GLUCAGON) 1 MG ASDIR PRN IM Atorvastatin Calcium (Lipitor) 80 MG DAILY@2100 PO Acetaminophen (TYLENOL 325MG) 650 MG Q4H PRN PRN PO Metoprolol Tartrate (LOPRESSOR) 25 MG Q12HR PO Enoxaparin Sodium (LOVENOX) 30 MG Q24H SUBQ Budesonide (PULMICORT) 0.5 MG RTQ12H NEB Formoterol Fumarate (PERFOROMIST) 20 MCG RTBID NEB Albuterol/Ipratropium (IPRATR-ALBUTEROL 0.5-3 MG/3 ML) 3 ML RTQ6H NEB Albuterol/Ipratropium (IPRATR-ALBUTEROL 0.5-3 MG/3 ML) 3 ML RTQ2H PRN PRN NEB Sterile Water (WATER FOR INJECTION) 1 ML ASDIR PRN IV Physical Exam General appearance: alert, awake Head/Eyes: atraumatic ENT: moist mucosal membranes Neck: non-tender Cardiovascular: CV assessment: regular rate and rhythm Respiratory: decreased breath sounds, rales Abdomen: soft, non-tender Lower extremity: LE assessment: edema Diagnosis, Assessment Plan Hospital course to date: Echocardiogram done on 02/24/2024 showed EF about 45% to 50%. Right ventricular systolic function is also reduced. ASSESSMENT AND PLAN: A 73-year-old male patient with history of coronary artery disease, chronic systolic heart failure, hypertension, comes with acute respiratory failure. 1. Acute respiratory failure. Continue BiPAP as per Primary Service and Pulmonary Critical Care. 2. Acute on chronic systolic heart failure. Continue home medicine. We will resume her home medicine and follow up. Keep him on fluid restricted diet. Continue Lasix to 40 mg IV bid. Improving 3. Coronary artery disease, mild troponin elevation consistent with type 2 myocardial infarction, especially given hypoxia. Plan: We will continue to monitor closely. Further workup can be done at a later date, possibly as an outpatient. 4. Hypertension. Continue home medications. 5. Diabetes mellitus. Continue as per primary service. Okay to DC from CV standpoint POC discussed with Dr. Kingsley at 1234 at 0735 RPT #:[id number] END OF REPORT [facility] 2024-03-08 09:58:00 [facility] ([facility] Hospitalist Progress Note REPORT#:[id number] REPORT STATUS: Signed REPORT INITIALIZATION DATE:03/08/24 TIME: 957 PATIENT: WILLI MERRITT UNIT #: [id number] ROOM/BED: [place] [id number] : 52 AGE: 73 SEX: M ATTEND: Lisa Layton MD ADM AUTHOR: Tricia Schofield MD REPT SERVICE DT/TIME: 03/08/24 09 * ALL edits or amendments must be made on the electronic/computer document * Subjective Chief complaint: Out of the ICU Follow-up acute on chronic respiratory failure On 15 L nasal cannula oxygen Shortness of breath Asking for more food at nighttime Review of Systems Constitutional: Denies: fever. Respiratory: Reports: SOB. Denies: productive cough (sputum). Cardiovascular: Denies: chest pain. GI: Denies: nausea, vomiting. Objective General VS/I O: Active Meds + DC'd Last 24 Hrs Insulin Glargine (Semglee) 25 UNITS BID SUBQ Diphenhydramine HCl (BENADRYL) 25 MG Q6H PRN PRN PO Insulin Glargine (Semglee) 15 UNITS BID SUBQ (DC) Fluticasone Propionate (FLONASE NASAL SPRAY) 2 SPRAY DAILY NASAL (CKD) Methylprednisolone Sodium Succinate (Solu-Medrol 40 MG Vial) 40 MG DAILY IV Furosemide (LASIX 100MG) 60 MG Q8H IV Sodium Chloride (OCEAN 0.65% 45 ML NASAL SOLN) 1 SPRAY Q6H PRN PRN NASAL Aspirin (ASPIRIN 81MG CHEW) 81 MG DAILY PO Clopidogrel Bisulfate (PLAVIX) 75 MG DAILY PO Loratadine (CLARITIN) 10 MG DAILY PO Insulin Human Lispro (HumaLOG 100 UNITS/ML) 0 AC HS SUBQ Dextrose/Water (DEXTROSE 10%) 125 ML ASDIR PRN IV (CKD) Dextrose/Water (DEXTROSE 10%) 250 ML ASDIR PRN IV (CKD) Glucagon (GLUCAGON) 1 MG ASDIR PRN IM Atorvastatin Calcium (Lipitor) 80 MG DAILY@2100 PO Acetaminophen (TYLENOL 325MG) 650 MG Q4H PRN PRN PO Metoprolol Tartrate (LOPRESSOR) 25 MG Q12HR PO Enoxaparin Sodium (LOVENOX) 30 MG Q24H SUBQ Budesonide (PULMICORT) 0.5 MG RTQ12H NEB Formoterol Fumarate (PERFOROMIST) 20 MCG RTBID NEB Albuterol/Ipratropium (IPRATR-ALBUTEROL 0.5-3 MG/3 ML) 3 ML RTQ6H NEB Albuterol/Ipratropium (IPRATR-ALBUTEROL 0.5-3 MG/3 ML) 3 ML RTQ2H PRN PRN NEB Sterile Water (WATER FOR INJECTION) 1 ML ASDIR PRN IV Vital Signs: Date Time Temp Pulse Resp B/P B/P Pulse O2 O2 Flow FiO2 Mean Ox Delivery Rate 03/08 0651 96 Nasal 8 52 cannula 03/08 0651 98.8 68 20 124/74 90.6 100 03/08 0345 98.6 90 18 104/70 81.2 98 03/08 0015 98.4 77 18 107/60 75.5 96 03/07 2329 100 Nasal 15 cannula 03/075 Nasal 8 cannula 03/07 2011 98.4 118 18 127/71 89.9 93 03/07 1743 High flow 8 nasal cannula 03/07 1545 97.9 110 20 153/83 106.5 98 03/07 1052 98.2 66 18 117/62 80.4 97 24 hour I O ending at 0700: 03/08 0700 03/07 1900 Intake Total 250 Output Total 800 Balance 250 -800 Intake, Oral 250 Output, Urine 800 PATIENT WEIGHT: Weight (lb): 264 Weight (oz): 8.88 Weight (kg): 120.000 Free Text Obj Notes Free Text Obj Notes: PHYSICAL EXAMINATION: General appearance: alert , on 15 L NC, no acute distress, obese Head/Eyes: atraumatic, face is symmetric Neck: supple, no masses or swelling Cardiovascular: regular rate rhythm, normal heart sounds Respiratory: Decreased breath sounds bilaterally, no distress Abdomen/GI: active bowel sounds, soft, non-tender, obese Extremities: moves all, PIO LE edema, no cyanosis Neuro/HAND STONER: alert OX3, no focal deficits Skin: dry, intact Psychiatry: mood appropriate Diagnosis, Assessment Plan Free Text DxA P Notes Free text DxA P notes: Acute on chronic hypoxic and hypercapnic respiratory failure On BiPAP Pulmonology follow-up Steroids Solu-Medrol , duonebs Acute on chronic systolic heart failure IV diuresis Cardiology consultation Echocardiogram EF 35 to 39% April 2023 -- 45-49% February 2024; grade 2 diastolic dysfunction Lactic acidosis Follow cultures -- blood cx coag neg staph in 4 -- repeat Continue antibiotics Elevated troponins --like;y type 2 MA H/O disease, cardiac stents cardiology consulted ASA, plavix, statin, beta lisa CKD stage III -- Cr -- 1.4 . 1.7 Pulmonary nodules right upper and lower lobes similar to April 2023 Diabetes mellitus type 2 A1c, SSI, home medications --glipizide and aspart ; schedule Lantus Hypertension blood pressure controlled Morbid obesity BMI 41 --OHS/DIANNE Uses CPAP inconsistently at home Needs lifestyle modification with diet and exercise Dyslipidemia DVT prophylaxis Lovenox -- more alert -- monitor blood sugars -- wean BIPAP -- continue diuresis 03/03/24 --- Acute on chronic hypoxic and hypercapnic respiratory failure, pulmonary edema BiPAP, nasal cannula oxygen, nonrebreather--wean as tolerated pulmonology follow-up --- steroids, DuoNebs --- Acute on chronic systolic heart failure IV diuresis cardiology follow-up Elevated troponins type II MA --- Bacteremia repeat cultures consult ID ; leukocytosis --- CKD stage III creatinine stable 1.4 ; hyponatremia --- Pulmonary nodules -stable pulmonology follow-up --- Diabetes mellitus type 2 increase Lantus; A1c 7.9 --- Morbid obesity BMI 42 OHS, DIANNE needs lifestyle modification --- Dyslipidemia --- DVT prophylaxis Lovenox Wean oxygen as tolerated Increase Lantus monitor blood sugars 03/04/2024 Acute on chronic hypoxic respiratory failure, continue oxygen/BiPAP, on IV steroids Acute on chronic systolic and diastolic CHF EF 45 to 49% with acute pulm edema, continue IV diuresis Type II MA Bacteremia, ID following, on IV antibiotics CKD stage III Diabetes mellitus type 2--- Lantus/lispro regimen Wears 6-8 L of oxygen at home. Still significantly volume overloaded 03/08/24 --- Acute on chronic hypoxic and hypercapnic respiratory failure, pulmonary edema wean oxygen as tolerated pulmonology follow-up --- steroids, DuoNebs --- Acute on chronic systolic heart failure IV diuresis cardiology follow-up Elevated troponins type II MA --- Bacteremia repeat cultures negative to date consulted ID ; leukocytosis --- CKD stage III creatinine stable 1.4 1.1; hyponatremia resolved --- Pulmonary nodules -stable pulmonology follow-up --- Diabetes mellitus type 2 increase Lantus; A1c 7.9 ; DC glipizide for hypoglycemia --- Morbid obesity BMI 42 OHS, DIANNE needs lifestyle modification --- Dyslipidemia --- DVT prophylaxis Lovenox Wean oxygen as tolerated --- on 15 L today Blood sugars high now increase Lantus further and monitor High-dose IV Lasix 60 every 8 hours Patient needs 10 L concentrator at home at 1732 RPT #:[id number] END OF REPORT [facility] 2024-03-07 23:33:00 [facility] ([facility]) Infectious Dis. Progress Note REPORT#:[id number] REPORT STATUS: Signed REPORT INITIALIZATION DATE:03/07/24 TIME: 2332 PATIENT: WILLI MERRITT UNIT #: [id number] ROOM/BED: [place] [id number] : 52 AGE: 73 SEX: M ATTEND: Lisa Layton MD ADM AUTHOR: Elyse Jenkins MD REPT SERVICE DT/TIME: 03/07/242332 * ALL edits or amendments must be made on the electronic/computer document * Subjective Chief complaint: SOB POS BLOOD CX Patient reports: No: complaints. Nursing reports: No: complaints. Unable to obtain: medical condition, patient condition Objective General VS/I O: Vital Signs Date Temp Pulse Resp B/P B/P Mean Pulse Ox FiO2 03/07 36.6-36.9 66-118 16-20 105-153/62-83 80.4-106.5 91-100 Last Documented: Result Date Time Pulse Ox 100 03/07 2329 O2 Delivery Nasal cannula 03/07 2329 O2 Flow Rate 15 03/07 2329 B/P 127/71 03/07 2011 B/P Mean 89.9 03/07 2011 Temp 36.9 03/07 2011 Pulse 118 03/07 2011 Resp 18 03/07 2011 FiO2 50 03/06 235 Vital Signs: Date Time Temp Pulse Resp B/P B/P Pulse O2 O2 Flow FiO2 Mean Ox Delivery Rate 03/07 2329 100 Nasal 15 cannula 03/07 213 Nasal 8 cannula 03/07 2011 36.9 118 18 127/71 89.9 93 03/07 1743 High flow 8 nasal cannula 03/07 1545 36.6 110 20 153/83 106.5 98 03/07 1052 36.8 66 18 117/62 80.4 97 03/07 0716 94 Nasal 8 cannula 03/07 0627 36.7 67 16 136/74 94.7 97 03/07 0338 36.9 80 18 105/70 81.5 92 03/07 0337 Nasal 12 cannula 03/07 0129 91 High flow 12 nasal cannula 24 hour I O ending at 0700: 03/08 0700 03/07 1900 Intake Total 250 Output Total 800 Balance 250 -800 Intake, Oral 250 Output, Urine 800 PATIENT WEIGHT: Weight (lb): 264 Weight (oz): 8.88 Weight (kg): 120.000 Medications: Active Meds + DC'd Last 24 Hrs Insulin Glargine (Semglee) 25 UNITS BID SUBQ Diphenhydramine HCl (BENADRYL) 25 MG Q6H PRN PRN PO Diphenhydramine HCl (BENADRYL) 25 MG ONCE ONE PO (DC) Insulin Glargine (Semglee) 15 UNITS BID SUBQ (DC) Fluticasone Propionate (FLONASE NASAL SPRAY) 2 SPRAY DAILY NASAL (CKD) Methylprednisolone Sodium Succinate (Solu-Medrol 40 MG Vial) 40 MG DAILY IV Furosemide (LASIX 100MG) 60 MG Q8H IV Sodium Chloride (OCEAN 0.65% 45 ML NASAL SOLN) 1 SPRAY Q6H PRN PRN NASAL Aspirin (ASPIRIN 81MG CHEW) 81 MG DAILY PO Clopidogrel Bisulfate (PLAVIX) 75 MG DAILY PO Loratadine (CLARITIN) 10 MG DAILY PO Insulin Human Lispro (HumaLOG 100 UNITS/ML) 0 AC HS SUBQ Dextrose/Water (DEXTROSE 10%) 125 ML ASDIR PRN IV (CKD) Dextrose/Water (DEXTROSE 10%) 250 ML ASDIR PRN IV (CKD) Glucagon (GLUCAGON) 1 MG ASDIR PRN IM Atorvastatin Calcium (Lipitor) 80 MG DAILY@2100 PO Acetaminophen (TYLENOL 325MG) 650 MG Q4H PRN PRN PO Metoprolol Tartrate (LOPRESSOR) 25 MG Q12HR PO Enoxaparin Sodium (LOVENOX) 30 MG Q24H SUBQ Budesonide (PULMICORT) 0.5 MG RTQ12H NEB Formoterol Fumarate (PERFOROMIST) 20 MCG RTBID NEB Albuterol/Ipratropium (IPRATR-ALBUTEROL 0.5-3 MG/3 ML) 3 ML RTQ6H NEB Albuterol/Ipratropium (IPRATR-ALBUTEROL 0.5-3 MG/3 ML) 3 ML RTQ2H PRN PRN NEB Sterile Water (WATER FOR INJECTION) 1 ML ASDIR PRN IV Physical Exam General appearance: awake Head/Eyes: atraumatic, clear cornea, EOMI, normal conjunctiva/sclera, normal eyelids/periorb, normocephalic, PERRL ENT: normal dentition, normal nose, normal pharynx, normal sinus Neck: full range of motion, non-tender, normal thyroid, supple/no meningismus, no bruit/NL carotids, no JVD, no masses or swelling, no lymphadenopathy Cardiovascular: regular rate rhythm Respiratory: clear to auscultation, no distress Abdomen: non-tender, soft, no distention, no guarding, no mass/organomegaly, no rebound Genitourinary: no flank pain Lymphatics: axilla normal, inguinal normal, neck normal, no lymphadenopathy Psychiatry: unable to evaluate Diagnosis, Assessment Plan Free Text A P: POS BLOOD CX AWAIT IDENTIFICATION BUT POSSIBLY CONTAMINANT CANNOT BE RULED OUT AC HYPO RESP FAILURE CHF FLUID OVERLOAD DIANNE OHS LEELA/CKI CT CURRENT TX AWAIT BLOOD CX RESULT WILL FOLLOW OFF ALL ANTIBX WILL FOLLOW at 0005 RPT #:[id number] END OF REPORT [facility] 2024-03-07 15:48:00 [facility] ([facility]) Pulmonology Progress Note REPORT#:[id number] REPORT STATUS: Signed REPORT INITIALIZATION DATE:03/07/24 TIME: 1547 PATIENT: WILLI MERRITT UNIT #: [id number] ROOM/BED: [place] [id number] : 52 AGE: 73 SEX: M ATTEND: Lisa Layton MD ADM AUTHOR: Dakota Melgar MD REPT SERVICE DT/TIME: 03/07/241547 * ALL edits or amendments must be made on the electronic/computer document * Subjective Chief complaint: sob Patient reports: Yes: resting comfortably. No: congestion, cough, shortness of breath. Comments: He was refusing oxygen earlier and was desaturating overnight, per nursing. This morning at my visit, he is wearing supplemental oxygen, which is set at 10 Lpm nasal cannula. Appreciate hospitalist note about possible need for nocturnal NIV -> agree this is reasonable though not clear pCO2 meets criteria - as initial pCO2 of 58 appears likely to have been from a mixed venous blood gas. He states he did have home CPAP but needs a new machine - the old machine was prescribed while he was still in [place] before moving to [place]. ROS negative for f/c, n/v. Objective General VS/I O: Last Documented: Result Date Time Pulse Ox 98 03/07 1545 B/P 153/83 03/07 1545 B/P Mean 106.5 03/07 1545 Temp 97.9 03/07 1545 Pulse 110 03/07 1545 Resp 20 03/07 1545 O2 Delivery Nasal cannula 03/07 0716 O2 Flow Rate 8 03/07 0716 FiO2 50 03/06 2350 24 hour I O ending at 0700: 03/06 1900 03/07 0700 Intake Total 1000 100 Output Total 1700 600 Balance -700 -500 Intake, Oral 1000 100 Output, Urine 1700 600 PATIENT WEIGHT: Weight (lb): 264 Weight (oz): 8.88 Weight (kg): 120.000 Medications: Active Meds + DC'd Last 24 Hrs Diphenhydramine HCl (BENADRYL) 25 MG ONCE ONE PO (DC) Insulin Glargine (Semglee) 15 UNITS BID SUBQ Insulin Glargine (Semglee) 15 UNITS DAILY SUBQ (DC) Fluticasone Propionate (FLONASE NASAL SPRAY) 2 SPRAY DAILY NASAL (CKD) Methylprednisolone Sodium Succinate (Solu-Medrol 40 MG Vial) 40 MG DAILY IV Furosemide (LASIX 100MG) 60 MG Q8H IV Sodium Chloride (OCEAN 0.65% 45 ML NASAL SOLN) 1 SPRAY Q6H PRN PRN NASAL Glipizide (GLUCOTROL) 10 MG BID PO (DC) Aspirin (ASPIRIN 81MG CHEW) 81 MG DAILY PO Clopidogrel Bisulfate (PLAVIX) 75 MG DAILY PO Loratadine (CLARITIN) 10 MG DAILY PO Insulin Human Lispro (HumaLOG 100 UNITS/ML) 0 AC HS SUBQ Dextrose/Water (DEXTROSE 10%) 125 ML ASDIR PRN IV (CKD) Dextrose/Water (DEXTROSE 10%) 250 ML ASDIR PRN IV (CKD) Glucagon (GLUCAGON) 1 MG ASDIR PRN IM Atorvastatin Calcium (Lipitor) 80 MG DAILY@2100 PO Acetaminophen (TYLENOL 325MG) 650 MG Q4H PRN PRN PO Metoprolol Tartrate (LOPRESSOR) 25 MG Q12HR PO Enoxaparin Sodium (LOVENOX) 30 MG Q24H SUBQ Budesonide (PULMICORT) 0.5 MG RTQ12H NEB Formoterol Fumarate (PERFOROMIST) 20 MCG RTBID NEB Albuterol/Ipratropium (IPRATR-ALBUTEROL 0.5-3 MG/3 ML) 3 ML RTQ6H NEB Albuterol/Ipratropium (IPRATR-ALBUTEROL 0.5-3 MG/3 ML) 3 ML RTQ2H PRN PRN NEB Sterile Water (WATER FOR INJECTION) 1 ML ASDIR PRN IV Dietitian nutrition assessment The data set between the solid lines has been imported from the dietitian's assessment. BMI Calculated: 42.7 Nutrition related diagnosis: Nutrition diagnosis details: Nutrition problem: Nutrition etiology: Nutrition signs and symptoms: Nutrition prescription: Dietitian name: Assessment completed: Physical Exam General appearance: alert, awake, no acute distress, conversational Neck: no JVD, no lymphadenopathy Cardiovascular: normal S1/S2, regular rate rhythm, no murmur, no rub, no gallop Respiratory/chest: decreased breath sounds, on oxygen, rales Abdomen: soft, normal bowel sounds, no distention Extremities: edema, normal temperature, no clubbing Musculoskeletal: normal inspection, no muscle spasm Neuro/HAND STONER: alert, oriented X 3, CNII-XII intact, no motor deficits Skin: dry, stasis hyperpigmentation Lymphatics: neck normal, no lymphadenopathy Psychiatry: normal affect, normal mood Results Findings/Data: Laboratory Tests 03/06 03/06 03/07 03/07 03/07 1632 2027 0038 0625 1050 Chemistry POC Glucose (70 - 110 mg/dL) 372 H 361 H 287 H 153 H 218 H Diagnosis, Assessment Plan Free Text A P: 1. Acute hypercapnic/hypoxemic respiratory failure on chronic hypoxemic respiratory failure O2 via high flow nasal cannula Wean to baseline of 6 L/min as tolerated Worsened related to pulmonary edema Continue diuresis as tolerated -> increased diuretic wean oxygen as tolerated 2. CHF exacerbation significant fluid overload recent echo: EF 45-49% with grade 2 DD, moderately dilated RV and reduced RV systolic function continue IV Lasix fluid restrict cardiology following 3. DIANNE/OHS Patient reports having inconsistently using home CPAP Will continue to use BiPAP nightly and as needed while hospitalized 4. Acute kidney injury with chronic kidney disease? Continue to follow BUN and creatinine May improve with diuresis monitor electrolytes/renal function 5. Hypokalemia Replace as needed 6. Bacteremia contaminant? ID following follow repeat blood cultures Wean oxygen as tolerate - might need a 10 Lpm oxygen concentrator. Also will recheck ABG to determine if he qualifies for nocturnal NIV. Orders: Procedure Date/time Status ARTERIAL BLOOD GAS - RT 03/07 161 Active RT: Weaning 03/07 1608 Active at 1612 RPT #:[id number] END OF REPORT [facility] 2024-03-07 12:36:00 [facility] Cardiology Progress Note REPORT#:[id number] REPORT STATUS: Signed REPORT INITIALIZATION DATE:03/07/24 TIME: 1236 PATIENT: WILLI MERRITT UNIT #: [id number] ROOM/BED: [place] [id number] : 52 AGE: 73 SEX: M ATTEND: Lisa Layton MD ADM AUTHOR: Brooke Calzada TABLE COVER FOLDER REPT SERVICE DT/TIME: 03/07/24 1236 * ALL edits or amendments must be made on the electronic/computer document * Brooke Calzada 03/07/24 1236: Subjective Chief complaint: overall appears better. Objective General VS/I O: 24 hour I O ending at 0700: 03/07 0700 03/06 1900 Intake Total 100 1000 Output Total 600 1700 Balance -500 -700 Intake, Oral 100 1000 Output, Urine 600 1700 Vital Signs: Date Time Temp Pulse Resp B/P B/P Pulse O2 O2 Flow FiO2 Mean Ox Delivery Rate 03/07 1052 98.2 66 18 117/62 80.4 97 03/07 0716 94 Nasal 8 cannula 03/07 627 98.1 67 16 136/74 94.7 97 03/07 0338 98.4 80 18 105/70 81.5 92 03/07 0337 Nasal 12 cannula 03/07 0129 91 High flow 12 nasal cannula 03/06 2350 64 100 50 03/06 2259 98.2 74 18 119/59 79.3 90 03/06 2101 84 143/62 86 99 03/06 2001 87 134/69 96 94 03/06 2000 Nasal 8 cannula 03/06 2000 97.0 87 28 134/69 90 94 Nasal 8 cannula 03/06 1851 95 Nasal 8 cannula 03/06 1800 83 134/69 95 03/06 1644 97.0 03/06 1631 90 36 132/79 100 91 03/06 1400 80 136/72 96 03/06 1352 79 100 03/06 1300 116 87 PATIENT WEIGHT: Weight (lb): 264 Weight (oz): 8.88 Weight (kg): 120.000 Medications: Active Meds + DC'd Last 24 Hrs Diphenhydramine HCl (BENADRYL) 25 MG ONCE ONE PO (DC) Insulin Glargine (Semglee) 15 UNITS BID SUBQ Insulin Glargine (Semglee) 15 UNITS DAILY SUBQ (DC) Fluticasone Propionate (FLONASE NASAL SPRAY) 2 SPRAY DAILY NASAL (CKD) Methylprednisolone Sodium Succinate (Solu-Medrol 40 MG Vial) 40 MG DAILY IV Furosemide (LASIX 100MG) 60 MG Q8H IV Sodium Chloride (OCEAN 0.65% 45 ML NASAL SOLN) 1 SPRAY Q6H PRN PRN NASAL Glipizide (GLUCOTROL) 10 MG BID PO (DC) Aspirin (ASPIRIN 81MG CHEW) 81 MG DAILY PO Clopidogrel Bisulfate (PLAVIX) 75 MG DAILY PO Loratadine (CLARITIN) 10 MG DAILY PO Insulin Human Lispro (HumaLOG 100 UNITS/ML) 0 AC HS SUBQ Dextrose/Water (DEXTROSE 10%) 125 ML ASDIR PRN IV (CKD) Dextrose/Water (DEXTROSE 10%) 250 ML ASDIR PRN IV (CKD) Glucagon (GLUCAGON) 1 MG ASDIR PRN IM Atorvastatin Calcium (Lipitor) 80 MG DAILY@2100 PO Acetaminophen (TYLENOL 325MG) 650 MG Q4H PRN PRN PO Metoprolol Tartrate (LOPRESSOR) 25 MG Q12HR PO Enoxaparin Sodium (LOVENOX) 30 MG Q24H SUBQ Budesonide (PULMICORT) 0.5 MG RTQ12H NEB Formoterol Fumarate (PERFOROMIST) 20 MCG RTBID NEB Albuterol/Ipratropium (IPRATR-ALBUTEROL 0.5-3 MG/3 ML) 3 ML RTQ6H NEB Albuterol/Ipratropium (IPRATR-ALBUTEROL 0.5-3 MG/3 ML) 3 ML RTQ2H PRN PRN NEB Sterile Water (WATER FOR INJECTION) 1 ML ASDIR PRN IV Physical Exam General appearance: alert, awake Head/Eyes: atraumatic ENT: moist mucosal membranes Neck: non-tender Cardiovascular: CV assessment: regular rate and rhythm Respiratory: decreased breath sounds, rales Abdomen: soft, non-tender Lower extremity: LE assessment: edema Diagnosis, Assessment Plan Hospital course to date: Echocardiogram done on 02/24/2024 showed EF about 45% to 50%. Right ventricular systolic function is also reduced. ASSESSMENT AND PLAN: A 73-year-old male patient with history of coronary artery disease, chronic systolic heart failure, hypertension, comes with acute respiratory failure. 1. Acute respiratory failure. Continue BiPAP as per Primary Service and Pulmonary Critical Care. 2. Acute on chronic systolic heart failure. Continue home medicine. We will resume her home medicine and follow up. Keep him on fluid restricted diet. Continue Lasix to 40 mg IV bid. Improving 3. Coronary artery disease, mild troponin elevation consistent with type 2 myocardial infarction, especially given hypoxia. Plan: We will continue to monitor closely. Further workup can be done at a later date, possibly as an outpatient. 4. Hypertension. Continue home medications. 5. Diabetes mellitus. Continue as per primary service. Will continue to follow. Okay to DC from CV standpoint POC discussed with Steffanie Ahn 03/24/24 0011: Attestations Physician Attestation Agree w/findings plan: I have seen and examined the patient at bedside. I have reviewed the relevant test results and formulated the assessment and plan. I agree with the note by TABLE COVER FOLDER. at 1237 at 0012 RPT #:[id number] END OF REPORT [facility] 2024-03-07 12:11:00 [facility] ([facility]) Hospitalist Progress Note REPORT#:[id number] REPORT STATUS: Signed REPORT INITIALIZATION DATE:03/07/24 TIME: 1211 PATIENT: WILLI MERRITT UNIT #: [id number] ROOM/BED: [place] [id number] : 52 AGE: 73 SEX: M ATTEND: Lisa Layton MD ADM AUTHOR: Tricia Schofield MD REPT SERVICE DT/TIME: 03/07/24 1211 * ALL edits or amendments must be made on the electronic/computer document * Subjective Chief complaint: Out of the ICU Follow-up acute on chronic respiratory failure On 10 L nasal cannula oxygen Some shortness of breath Review of Systems Constitutional: Denies: fever. Respiratory: Reports: SOB. Denies: productive cough (sputum). Cardiovascular: Denies: chest pain. GI: Denies: nausea, vomiting. Objective General VS/I O: Laboratory Tests 03/06/24 0539: [Embedded Image Not Available] Active Meds + DC'd Last 24 Hrs Diphenhydramine HCl (BENADRYL) 25 MG ONCE ONE PO (DC) Insulin Glargine (Semglee) 15 UNITS BID SUBQ Insulin Glargine (Semglee) 15 UNITS DAILY SUBQ (DC) Fluticasone Propionate (FLONASE NASAL SPRAY) 2 SPRAY DAILY NASAL (CKD) Methylprednisolone Sodium Succinate (Solu-Medrol 40 MG Vial) 40 MG DAILY IV Furosemide (LASIX 100MG) 60 MG Q8H IV Sodium Chloride (OCEAN 0.65% 45 ML NASAL SOLN) 1 SPRAY Q6H PRN PRN NASAL Glipizide (GLUCOTROL) 10 MG BID PO (DC) Aspirin (ASPIRIN 81MG CHEW) 81 MG DAILY PO Clopidogrel Bisulfate (PLAVIX) 75 MG DAILY PO Loratadine (CLARITIN) 10 MG DAILY PO Insulin Human Lispro (HumaLOG 100 UNITS/ML) 0 AC HS SUBQ Dextrose/Water (DEXTROSE 10%) 125 ML ASDIR PRN IV (CKD) Dextrose/Water (DEXTROSE 10%) 250 ML ASDIR PRN IV (CKD) Glucagon (GLUCAGON) 1 MG ASDIR PRN IM Atorvastatin Calcium (Lipitor) 80 MG DAILY@2100 PO Acetaminophen (TYLENOL 325MG) 650 MG Q4H PRN PRN PO Metoprolol Tartrate (LOPRESSOR) 25 MG Q12HR PO Enoxaparin Sodium (LOVENOX) 30 MG Q24H SUBQ Budesonide (PULMICORT) 0.5 MG RTQ12H NEB Formoterol Fumarate (PERFOROMIST) 20 MCG RTBID NEB Albuterol/Ipratropium (IPRATR-ALBUTEROL 0.5-3 MG/3 ML) 3 ML RTQ6H NEB Albuterol/Ipratropium (IPRATR-ALBUTEROL 0.5-3 MG/3 ML) 3 ML RTQ2H PRN PRN NEB Sterile Water (WATER FOR INJECTION) 1 ML ASDIR PRN IV Vital Signs: Date Time Temp Pulse Resp B/P B/P Pulse O2 O2 Flow FiO2 Mean Ox Delivery Rate 03/07 1052 98.2 66 18 117/62 80.4 97 03/07 0716 94 Nasal 8 cannula 03/07 0627 98.1 67 16 136/74 94.7 97 03/07 0338 98.4 80 18 105/70 81.5 92 03/07 0337 Nasal 12 cannula 03/07 0129 91 High flow 12 nasal cannula 03/06 2350 64 100 50 03/06 2259 98.2 74 18 119/59 79.3 90 03/06 2101 84 143/62 86 99 03/06 2001 87 134/69 96 94 03/06 2000 Nasal 8 cannula 03/06 2000 97.0 87 28 134/69 90 94 Nasal 8 cannula 03/06 1851 95 Nasal 8 cannula 03/06 1800 83 134/69 95 03/06 1644 97.0 03/06 1631 90 36 132/79 100 91 03/06 1400 80 136/72 96 03/06 1352 79 100 03/06 1300 116 87 24 hour I O ending at 0700: 03/07 0700 03/06 1900 Intake Total 100 1000 Output Total 600 1700 Balance -500 -700 Intake, Oral 100 1000 Output, Urine 600 1700 PATIENT WEIGHT: Weight (lb): 264 Weight (oz): 8.88 Weight (kg): 120.000 Free Text Obj Notes Free Text Obj Notes: PHYSICAL EXAMINATION: General appearance: alert , on 10 L NC, no acute distress, obese Head/Eyes: atraumatic, face is symmetric Neck: supple, no masses or swelling Cardiovascular: regular rate rhythm, normal heart sounds Respiratory: Decreased breath sounds bilaterally, no distress Abdomen/GI: active bowel sounds, soft, non-tender, obese Extremities: moves all, PIO LE edema, no cyanosis Neuro/HAND STONER: alert OX3, no focal deficits Skin: dry, intact Psychiatry: mood appropriate Diagnosis, Assessment Plan Free Text DxA P Notes Free text DxA P notes: Acute on chronic hypoxic and hypercapnic respiratory failure On BiPAP Pulmonology follow-up Steroids Solu-Medrol , duonebs Acute on chronic systolic heart failure IV diuresis Cardiology consultation Echocardiogram EF 35 to 39% April 2023 -- 45-49% February 2024; grade 2 diastolic dysfunction Lactic acidosis Follow cultures -- blood cx coag neg staph in 4 -- repeat Continue antibiotics Elevated troponins --like;y type 2 MA H/O disease, cardiac stents cardiology consulted ASA, plavix, statin, beta lisa CKD stage III -- Cr -- 1.4 . 1.7 Pulmonary nodules right upper and lower lobes similar to April 2023 Diabetes mellitus type 2 A1c, SSI, home medications --glipizide and aspart ; schedule Lantus Hypertension blood pressure controlled Morbid obesity BMI 41 --OHS/DIANNE Uses CPAP inconsistently at home Needs lifestyle modification with diet and exercise Dyslipidemia DVT prophylaxis Lovenox -- more alert -- monitor blood sugars -- wean BIPAP -- continue diuresis 03/03/24 --- Acute on chronic hypoxic and hypercapnic respiratory failure, pulmonary edema BiPAP, nasal cannula oxygen, nonrebreather--wean as tolerated pulmonology follow-up --- steroids, DuoNebs --- Acute on chronic systolic heart failure IV diuresis cardiology follow-up Elevated troponins type II MA --- Bacteremia repeat cultures consult ID ; leukocytosis --- CKD stage III creatinine stable 1.4 ; hyponatremia --- Pulmonary nodules -stable pulmonology follow-up --- Diabetes mellitus type 2 increase Lantus; A1c 7.9 --- Morbid obesity BMI 42 OHS, DIANNE needs lifestyle modification --- Dyslipidemia --- DVT prophylaxis Lovenox Wean oxygen as tolerated Increase Lantus monitor blood sugars 03/04/2024 Acute on chronic hypoxic respiratory failure, continue oxygen/BiPAP, on IV steroids Acute on chronic systolic and diastolic CHF EF 45 to 49% with acute pulm edema, continue IV diuresis Type II MA Bacteremia, ID following, on IV antibiotics CKD stage III Diabetes mellitus type 2--- Lantus/lispro regimen Wears 6-8 L of oxygen at home. Still significantly volume overloaded 03/07/24 --- Acute on chronic hypoxic and hypercapnic respiratory failure, pulmonary edema wean oxygen as tolerated pulmonology follow-up --- steroids, DuoNebs --- Acute on chronic systolic heart failure IV diuresis cardiology follow-up Elevated troponins type II MA --- Bacteremia repeat cultures negative to date consulted ID ; leukocytosis --- CKD stage III creatinine stable 1.4 1.1; hyponatremia resolved --- Pulmonary nodules -stable pulmonology follow-up --- Diabetes mellitus type 2 increase Lantus; A1c 7.9 ; DC glipizide for hyperglycemia --- Morbid obesity BMI 42 OHS, DIANNE needs lifestyle modification --- Dyslipidemia --- DVT prophylaxis Lovenox Wean oxygen as tolerated Blood sugars high now increase Lantus and monitor High-dose IV Lasix 60 every 8 hours Discussed with the autocad electrical designer Dr. Melgar --- ABG to be repeated --then decide about noninvasive ventilator depending on pCO2 Patient is on 10 L oxygen needs 10 L concentrator at home at 1649 RPT #:[id number] END OF REPORT [facility] 2024-03-06 22:44:00 [facility] ([facility] Infectious Dis. Progress Note REPORT#:[id number] REPORT STATUS: Signed REPORT INITIALIZATION DATE:03/06/24 TIME: 2243 PATIENT: WILLI MERRITT UNIT #: [id number] ROOM/BED: [place] [id number] : 52 AGE: 73 SEX: M ATTEND: Lisa Layton MD ADM AUTHOR: Elyse Jenkins MD REPT SERVICE DT/TIME: 03/06/242243 * ALL edits or amendments must be made on the electronic/computer document * Subjective Chief complaint: SOB POS BLOOD CX Objective Physical Exam Head/Eyes: atraumatic, clear cornea, EOMI, normal conjunctiva/sclera, normal eyelids/periorb, normocephalic, PERRL ENT: normal dentition, normal nose, normal pharynx, normal sinus Neck: full range of motion, non-tender, normal thyroid, supple/no meningismus, no bruit/NL carotids, no JVD, no masses or swelling, no lymphadenopathy Cardiovascular: regular rate rhythm Respiratory: clear to auscultation, no distress Abdomen: non-tender, soft, no distention, no guarding, no mass/organomegaly, no rebound Genitourinary: no flank pain Lymphatics: axilla normal, inguinal normal, neck normal, no lymphadenopathy Diagnosis, Assessment Plan Free Text A P: POS BLOOD CX AWAIT IDENTIFICATION BUT POSSIBLY CONTAMINANT CANNOT BE RULED OUT AC HYPO RESP FAILURE CHF FLUID OVERLOAD DIANNE OHS LEELA/CKI CT CURRENT TX AWAIT BLOOD CX RESULT WILL FOLLOW at 2343 RPT #:[id number] END OF REPORT [facility] 2024-03-06 16:14:00 [facility] ([facility]) Pulmonology Progress Note REPORT#:[id number] REPORT STATUS: Signed REPORT INITIALIZATION DATE:03/06/24 TIME: 1613 PATIENT: WILLI MERRITT UNIT #: [id number] ROOM/BED: [place] [address] : 54 AGE: 73 SEX: M ATTEND: Lisa Layton MD ADM AUTHOR: Dakota Melgar MD REPT SERVICE DT/TIME: 03/06/241613 * ALL edits or amendments must be made on the electronic/computer document * Subjective Chief complaint: sob Comments: He is on 31% VM. He feels he is slowly improving. No new complaints. ROS negative for f/c, n/v. Objective General VS/I O: Last Documented: Result Date Time Pulse Ox 100 03/06 1352 Pulse 79 03/06 1352 B/P 131/75 03/06 1200 B/P Mean 95 03/06 1200 O2 Delivery Nasal cannula 03/06 1144 O2 Flow Rate 8 03/06 1144 Temp 97.4 03/06 0800 Resp 21 03/06 0538 FiO2 50 03/04 1414 24 hour I O ending at 0700: 03/05 1900 03/06 0700 Intake Total 880 300 Output Total 1900 1200 Balance -1020 -900 Intake, Oral 880 300 Number 1 1 Bowel Movements Number Voids 3 Output, Urine 1900 1200 PATIENT WEIGHT: Weight (lb): 264 Weight (oz): 8.88 Weight (kg): 120.000 Medications: Active Meds + DC'd Last 24 Hrs Insulin Glargine (Semglee) 15 UNITS DAILY SUBQ Insulin Glargine (Semglee) 15 UNITS Q12HR SUBQ (DC) Fluticasone Propionate (FLONASE NASAL SPRAY) 2 SPRAY DAILY NASAL (CKD) Methylprednisolone Sodium Succinate (Solu-Medrol 40 MG Vial) 40 MG DAILY IV Furosemide (LASIX 100MG) 60 MG Q8H IV Sodium Chloride (OCEAN 0.65% 45 ML NASAL SOLN) 1 SPRAY Q6H PRN PRN NASAL Glipizide (GLUCOTROL) 10 MG BID PO Aspirin (ASPIRIN 81MG CHEW) 81 MG DAILY PO Clopidogrel Bisulfate (PLAVIX) 75 MG DAILY PO Loratadine (CLARITIN) 10 MG DAILY PO Insulin Human Lispro (HumaLOG 100 UNITS/ML) 0 AC HS SUBQ Dextrose/Water (DEXTROSE 10%) 125 ML ASDIR PRN IV (CKD) Dextrose/Water (DEXTROSE 10%) 250 ML ASDIR PRN IV (CKD) Glucagon (GLUCAGON) 1 MG ASDIR PRN IM Atorvastatin Calcium (Lipitor) 80 MG DAILY@2100 PO Ceftriaxone Sodium (cefTRIAXone 1,000 MG VIAL) 1,000 MG Q24H IV (DC) Sodium Chloride (SODIUM CHLORIDE 0.9% 10ML) 10 ML Acetaminophen (TYLENOL 325MG) 650 MG Q4H PRN PRN PO Hydrocodone Bitart/Acetaminophen (NORCO 5/325 TABLET) 1 TAB Q4H PRN PRN PO (DC) Metoprolol Tartrate (LOPRESSOR) 25 MG Q12HR PO Enoxaparin Sodium (LOVENOX) 30 MG Q24H SUBQ Budesonide (PULMICORT) 0.5 MG RTQ12H NEB Formoterol Fumarate (PERFOROMIST) 20 MCG RTBID NEB Albuterol/Ipratropium (IPRATR-ALBUTEROL 0.5-3 MG/3 ML) 3 ML RTQ6H NEB Albuterol/Ipratropium (IPRATR-ALBUTEROL 0.5-3 MG/3 ML) 3 ML RTQ2H PRN PRN NEB Sterile Water (WATER FOR INJECTION) 1 ML ASDIR PRN IV Physical Exam General appearance: respiratory support, alert, awake, no acute distress Neck: no JVD, no lymphadenopathy Cardiovascular: normal S1/S2, regular rate rhythm, no murmur, no rub, no gallop Respiratory/chest: decreased breath sounds, on oxygen, rales Abdomen: soft, normal bowel sounds, no distention Extremities: edema, normal temperature, no clubbing Musculoskeletal: normal inspection, no muscle spasm Neuro/HAND STONER: alert, oriented X 3, CNII-XII intact, no motor deficits Skin: dry, stasis hyperpigmentation Lymphatics: neck normal, no lymphadenopathy Psychiatry: normal affect, normal mood Results Findings/Data: Laboratory Tests 03/06/24 0539: [Embedded Image Not Available] Laboratory Tests 03/05 03/06 03/06 03/06 2152 0539 0709 1157 Chemistry Sodium (134.0 - 147.0 mmol/l) 142 Potassium (3.6 - 5.2 mmol/L) 3.6 Chloride (98.0 - 107.0 mmol/l) 99 Carbon Dioxide (21.0 - 33.0 mmol/l) 40.9 *H Anion Gap (0 - 20) 5.7 BUN (7.0 - 18.0 mg/dl) 28 H Creatinine (0.60 - 1.30 mg/dL) 1.19 Estimated Creat Clear (>30 mL/min) 51 Glomerular Filtr Rate (mL/min) 65 Glucose (70.0 - 110.0 mg/dl) 45 *L POC Glucose (70 - 110 mg/dL) 375 H 83 107 Calcium (8.0 - 10.5 mg/dl) 8.2 Diagnosis, Assessment Plan Free Text A P: 1. Acute hypercapnic/hypoxemic respiratory failure on chronic hypoxemic respiratory failure O2 via high flow nasal cannula Wean to baseline of 6 L/min as tolerated Worsened related to pulmonary edema Continue diuresis as tolerated -> increased diuretic 2. CHF exacerbation significant fluid overload recent echo: EF 45-49% with grade 2 DD, moderately dilated RV and reduced RV systolic function continue IV Lasix fluid restrict cardiology following 3. DIANNE/OHS Patient reports having inconsistently using home CPAP Will continue to use BiPAP nightly and as needed while hospitalized 4. Acute kidney injury with chronic kidney disease? Continue to follow BUN and creatinine May improve with diuresis monitor electrolytes/renal function 5. Hypokalemia Replace as needed 6. Bacteremia contaminant? ID following follow repeat blood cultures Ok to transfer out of ICU from my standpoint. at 1614 RPT #:[id number] END OF REPORT [facility] 2024-03-06 12:18:00 [facility] ([facility]) Hospitalist Progress Note REPORT#:[id number] REPORT STATUS: Signed REPORT INITIALIZATION DATE:03/06/24 TIME: 1217 PATIENT: WILLI MERRITT UNIT #: [id number] ROOM/BED: [place] [address] : 52 AGE: 73 SEX: M ATTEND: Lisa Layton MD ADM AUTHOR: Tricia Schofield MD REPT SERVICE DT/TIME: 03/06/24 1218 * ALL edits or amendments must be made on the electronic/computer document * Subjective Chief complaint: Seen in ICU Follow-up acute on chronic respiratory failure Sitting on the side of the bed, on nasal cannula 8 L Blood sugars low again Patient asymptomatic Review of Systems Constitutional: Denies: fever. Respiratory: Denies: productive cough (sputum), SOB. Cardiovascular: Denies: chest pain. GI: Denies: nausea, vomiting. Objective General VS/I O: Laboratory Tests 03/06/24 0539: [Embedded Image Not Available] 03/05/24 0624: [Embedded Image Not Available] Active Meds + DC'd Last 24 Hrs Insulin Glargine (Semglee) 15 UNITS DAILY SUBQ Insulin Glargine (Semglee) 15 UNITS Q12HR SUBQ (DC) Fluticasone Propionate (FLONASE NASAL SPRAY) 2 SPRAY DAILY NASAL (CKD) Methylprednisolone Sodium Succinate (Solu-Medrol 40 MG Vial) 40 MG DAILY IV Insulin Glargine (Semglee) 25 UNITS Q12HR SUBQ (DC) Furosemide (LASIX 100MG) 60 MG Q8H IV Sodium Chloride (OCEAN 0.65% 45 ML NASAL SOLN) 1 SPRAY Q6H PRN PRN NASAL Glipizide (GLUCOTROL) 10 MG BID PO Aspirin (ASPIRIN 81MG CHEW) 81 MG DAILY PO Clopidogrel Bisulfate (PLAVIX) 75 MG DAILY PO Loratadine (CLARITIN) 10 MG DAILY PO Insulin Human Lispro (HumaLOG 100 UNITS/ML) 0 AC HS SUBQ Dextrose/Water (DEXTROSE 10%) 125 ML ASDIR PRN IV (CKD) Dextrose/Water (DEXTROSE 10%) 250 ML ASDIR PRN IV (CKD) Glucagon (GLUCAGON) 1 MG ASDIR PRN IM Atorvastatin Calcium (Lipitor) 80 MG DAILY@2100 PO Ceftriaxone Sodium (cefTRIAXone 1,000 MG VIAL) 1,000 MG Q24H IV (DC) Sodium Chloride (SODIUM CHLORIDE 0.9% 10ML) 10 ML Acetaminophen (TYLENOL 325MG) 650 MG Q4H PRN PRN PO Hydrocodone Bitart/Acetaminophen (NORCO 5/325 TABLET) 1 TAB Q4H PRN PRN PO (DC) Metoprolol Tartrate (LOPRESSOR) 25 MG Q12HR PO Enoxaparin Sodium (LOVENOX) 30 MG Q24H SUBQ Budesonide (PULMICORT) 0.5 MG RTQ12H NEB Formoterol Fumarate (PERFOROMIST) 20 MCG RTBID NEB Albuterol/Ipratropium (IPRATR-ALBUTEROL 0.5-3 MG/3 ML) 3 ML RTQ6H NEB Albuterol/Ipratropium (IPRATR-ALBUTEROL 0.5-3 MG/3 ML) 3 ML RTQ2H PRN PRN NEB Sterile Water (WATER FOR INJECTION) 1 ML ASDIR PRN IV Recent Impressions-Last 72 Hrs RADIOLOGY - XR CHEST 1 V 03/04 0552 Report Impression - Status: SIGNED Entered: 03/04/2024 0712 IMPRESSION: 1. Enlarged cardiac silhouette with pulmonary vascular congestion/interstitial edema. 2. Blunting of the lateral costophrenic angles compatible with pleural thickening versus trace effusions. LOCATION: B2 Impression By: Luis A Schmidt M.D. Vital Signs: Date Time Temp Pulse Resp B/P B/P Pulse O2 O2 Flow FiO2 Mean Ox Delivery Rate 03/06 1144 96 Nasal 8 cannula 03/06 1045 Nasal 8 cannula 03/06 0800 97.4 03/06 0753 100 Nasal 8 cannula 03/06 0600 68 120/60 84 98 03/06 0538 77 21 139/66 95 100 03/06 0232 70 12 115/59 81 97 03/06 0002 66 22 133/62 86 94 03/05 2200 76 27 93/55 67 97 03/058 78 21 91/53 67 03/05 2152 78 20 99/48 69 03/05 1943 Nasal 8 cannula 03/05 1919 82 32 122/62 82 89 03/05 191 89 Nasal 8 cannula 03/05 1807 80 17 93 03/05 1700 91 33 90 03/05 1635 97.8 03/05 1625 76 21 123/63 84 91 03/05 1549 75 14 95 03/05 1454 80 24 125/72 93 91 03/05 1400 77 11 95 03/05 1225 Nasal 8 cannula 24 hour I O ending at 0700: 03/06 0700 03/05 1900 Intake Total 300 880 Output Total 1200 1900 Balance -900 -1020 Intake, Oral 300 880 Number 1 1 Bowel Movements Number Voids 3 Output, Urine 1200 1900 PATIENT WEIGHT: Weight (lb): 264 Weight (oz): 8.88 Weight (kg): 120.000 Free Text Obj Notes Free Text Obj Notes: PHYSICAL EXAMINATION: General appearance: alert , on 8 L NC, no acute distress, obese Head/Eyes: atraumatic, face is symmetric Neck: supple, no masses or swelling Cardiovascular: regular rate rhythm, normal heart sounds Respiratory: Decreased breath sounds bilaterally, no distress Abdomen/GI: active bowel sounds, soft, non-tender, obese Extremities: moves all, PIO LE edema, no cyanosis Neuro/HAND STONER: alert OX3, no focal deficits Skin: dry, intact Psychiatry: mood appropriate Diagnosis, Assessment Plan Free Text DxA P Notes Free text DxA P notes: Acute on chronic hypoxic and hypercapnic respiratory failure On BiPAP Pulmonology follow-up Steroids Solu-Medrol , duonebs Acute on chronic systolic heart failure IV diuresis Cardiology consultation Echocardiogram EF 35 to 39% April 2023 -- 45-49% February 2024; grade 2 diastolic dysfunction Lactic acidosis Follow cultures -- blood cx coag neg staph in 4 -- repeat Continue antibiotics Elevated troponins --like;y type 2 MA H/O disease, cardiac stents cardiology consulted ASA, plavix, statin, beta lisa CKD stage III -- Cr -- 1.4 . 1.7 Pulmonary nodules right upper and lower lobes similar to April 2023 Diabetes mellitus type 2 A1c, SSI, home medications --glipizide and aspart ; schedule Lantus Hypertension blood pressure controlled Morbid obesity BMI 41 --OHS/DIANNE Uses CPAP inconsistently at home Needs lifestyle modification with diet and exercise Dyslipidemia DVT prophylaxis Lovenox -- more alert -- monitor blood sugars -- wean BIPAP -- continue diuresis 03/03/24 --- Acute on chronic hypoxic and hypercapnic respiratory failure, pulmonary edema BiPAP, nasal cannula oxygen, nonrebreather--wean as tolerated pulmonology follow-up --- steroids, DuoNebs --- Acute on chronic systolic heart failure IV diuresis cardiology follow-up Elevated troponins type II MA --- Bacteremia repeat cultures consult ID ; leukocytosis --- CKD stage III creatinine stable 1.4 ; hyponatremia --- Pulmonary nodules -stable pulmonology follow-up --- Diabetes mellitus type 2 increase Lantus; A1c 7.9 --- Morbid obesity BMI 42 OHS, DIANNE needs lifestyle modification --- Dyslipidemia --- DVT prophylaxis Lovenox Wean oxygen as tolerated Increase Lantus monitor blood sugars 03/04/2024 Acute on chronic hypoxic respiratory failure, continue oxygen/BiPAP, on IV steroids Acute on chronic systolic and diastolic CHF EF 45 to 49% with acute pulm edema, continue IV diuresis Type II MA Bacteremia, ID following, on IV antibiotics CKD stage III Diabetes mellitus type 2--- Lantus/lispro regimen Wears 6-8 L of oxygen at home. Still significantly volume overloaded 03/06/24 --- Acute on chronic hypoxic and hypercapnic respiratory failure, pulmonary edema wean oxygen as tolerated pulmonology follow-up --- steroids, DuoNebs --- Acute on chronic systolic heart failure IV diuresis cardiology follow-up Elevated troponins type II MA --- Bacteremia repeat cultures negative to date consulted ID ; leukocytosis --- CKD stage III creatinine stable 1.4 1.2; hyponatremia resolved --- Pulmonary nodules -stable pulmonology follow-up --- Diabetes mellitus type 2 increase Lantus; A1c 7.9 --- Morbid obesity BMI 42 OHS, DIANNE needs lifestyle modification --- Dyslipidemia --- DVT prophylaxis Lovenox Wean oxygen as tolerated Monitor blood sugars Lantus reduced to 15 units daily High-dose IV Lasix 60 every 8 hours To the floor May need noninvasive ventilator at home at 1607 RPT #:[id number] END OF REPORT [facility] 2024-03-05 23:22:00 [id number] [facility] [address] [place], [place] [address] PATIENT NAME: WILLI MERRITT ADMIT DATE: 02/29/24 ACCOUNT NO: [id number] DISCHARGE DATE: ROOM NO: [id number] REPORT TYPE: CONSULTATION REPORT DATE OF : 54 AGE: 73 SEX: M ADMITTING PHYSICIAN:Lisa Layton MD ATTENDING PHYSICIAN:Lisa Layton MD CONSULTATION DATE: 03/03/2024 INFECTIOUS DISEASE CONSULTATION ATTENDING PHYSICIAN: Lisa Layton MD CONSULTING PHYSICIAN: Elyse Jenkins MD REASON FOR CONSULTATION: 1. Positive blood cultures. 2. Acute on chronic respiratory failure. This is to be noted that my consultation note dictated on 03/03/2024 could not appear in the system, so this is a repeat consultation note, which is being dictated. Thank you so much Dr. Schofield for asking me to see the patient. HISTORY OF PRESENT ILLNESS: This is a 73-year-old male with eventful past medical history, who has a reasonable source of history. It is to be noted that the patient has been having shortness of breath, difficulty breathing, and swelling of the bilateral feet, which has deteriorated over the last 7 days or so. The patient has been found to be some desaturating. It is to be noted that the patient was admitted for similar complaints, but almost possibly got discharged on 02/27/2024. It is further to be noted that the patient was found to be showing signs of altered mental status, some confusion, difficulty breathing, desaturation, and was brought over to the ER by the EMS services. Appropriate measures were taken. Pulmonary was consulted again. The patient has responded to the treatment adequately and at the time of examination, he was fully oriented x3. It is further to be noted that the patient's blood cultures have come back positive with gram-positive cocci in clusters, identification of which is pending. PAST MEDICAL HISTORY: Suggestive of, 1. Hypertension. 2. DIANNE. 3. OHS. 4. CHF. 5. Fluid overload. 6. Chronic hypoxic respiratory failure, on home oxygen. 7. Hypertension. 8. Hyperlipidemia. PATIENT NAME: WILLI MERRITT SOCIAL AND PERSONAL HISTORY: No recent smoking or alcohol abuse. ALLERGIES: PER HPI. FAMILY HISTORY: Positive for hypertension and coronary artery disease. REVIEW OF SYSTEMS: Beside the above none. PHYSICAL EXAMINATION: GENERAL: At the time of examination, the patient was in the bed, slightly short of breath, although fully oriented x3. VITAL SIGNS: His temperature was normal and vitals were stable. HEENT: Atraumatic and normocephalic. Pupils are equal and reactive, nonicteric. NECK: Supple. No thyromegaly. No cervical lymphadenopathy. No JVP. CHEST: Harsh vesicular breathing. Basal crepitation at bases bilaterally. CARDIOVASCULAR: S1 and S2 audible. No murmurs or gallop audible. ABDOMEN: Some tenderness on superficial or deep palpation. No visceromegaly. Bowel sounds are audible. CENTRAL NERVOUS SYSTEM: Grossly within normal limits. LABORATORY DATA AND DIAGNOSTIC STUDIES: All investigations have been reviewed. Blood cultures have been reviewed, which have gram-positive cocci in clusters, identification of which is pending. ASSESSMENT: My assessment at this point of time is, 1. Positive blood cultures. Waiting for the identification of gram-positive cocci in clusters. 2. Acute on chronic respiratory failure. 3. Hypertension. 4. Congestive heart failure exacerbation. 5. Fluid overload. 6. Obstructive sleep apnea. 7. Obesity hypoventilation syndrome. 8. Acute kidney injury ____. PLAN: 1. Follow with the cultures. Continue with the present antibiotics. 2. Further recommendations to follow depending on the clinical response of the patient. 3. Case discussed with the patient in detail. 4. Case discussed with the nursing staff in detail. Dictated By: Elyse Jenkins MD Date Dictated: 03/05/2024 23:22:42 Date Transcribed: 03/06/2024 00:32:08 IMMANUEL/VERENA/LUZMA Receipt ID: [id number] Authenticated by Elyse Jenkins MD On 03/10/2024 03:19:38 PM PATIENT NAME: WILLI MERRITT at 0319 PATIENT NAME: WILLI MERRITT [facility] 2024-03-05 22:51:00 [facility] ([facility]) Infectious Dis. Progress Note REPORT#:[id number] REPORT STATUS: Signed REPORT INITIALIZATION DATE:03/05/24 TIME: 2250 PATIENT: WILLI MERRITT UNIT #: [id number] ROOM/BED: [place] [address] : [birth year] AGE: 73 SEX: M ATTEND: Lisa Layton MD ADM AUTHOR: Elyse Jenkins MD REPT SERVICE DT/TIME: 03/05/242250 * ALL edits or amendments must be made on the electronic/computer document * Subjective Chief complaint: SOB POS BLOOD CX Patient reports: Yes: shortness of breath. Nursing reports: Yes: complaints. Unable to obtain: medical condition, patient condition Objective General VS/I O: Vital Signs Date Temp Pulse Resp B/P B/P Mean Pulse Ox FiO2 03/05 36.1-36.6 64-91 9-36 115-125/58-72 81-93 87-97 Last Documented: Result Date Time O2 Delivery Nasal cannula 03/05 1943 O2 Flow Rate 8 03/05 194 Pulse Ox 89 03/05 1915 Pulse 80 03/05 1807 Resp 17 03/05 1807 Temp 36.6 03/05 1635 B/P 123/63 03/05 1625 B/P Mean 84 03/05 1625 FiO2 50 03/04 1414 Vital Signs: Date Time Temp Pulse Resp B/P B/P Pulse O2 O2 Flow FiO2 Mean Ox Delivery Rate 03/05 194 Nasal 8 cannula 03/05 1915 89 Nasal 8 cannula 03/05 1807 80 17 93 03/05 1700 91 33 90 03/05 1635 36.6 03/05 1625 76 21 123/63 84 91 03/05 1549 75 14 95 03/05 1454 80 24 125/72 93 91 03/05 1400 77 11 95 03/05 1225 Nasal 8 cannula 03/05 1200 75 16 124/58 84 93 03/05 1100 78 12 96 03/05 1020 79 21 118/63 81 95 03/05 0900 86 36 95 03/05 0801 86 29 115/63 82 94 03/05 0800 36.1 03/05 0721 87 Nasal 8 cannula 03/05 0200 64 20 116/68 87 97 03/05 0000 68 9 117/64 85 94 24 hour I O ending at 0700: 05/26 0700 03/04 1900 Intake Total 600 240 Output Total 1450 500 Balance -850 -260 Intake, Oral 600 240 Number 1 Bowel Movements Number Voids 3 1 Output, Urine 1450 500 PATIENT WEIGHT: Weight (lb): 264 Weight (oz): 8.88 Weight (kg): 120.000 Medications: Active Meds + DC'd Last 24 Hrs Insulin Glargine (Semglee) 15 UNITS Q12HR SUBQ Fluticasone Propionate (FLONASE NASAL SPRAY) 2 SPRAY DAILY NASAL (CKD) Methylprednisolone Sodium Succinate (Solu-Medrol 40 MG Vial) 40 MG DAILY IV Insulin Glargine (Semglee) 25 UNITS Q12HR SUBQ (DC) Furosemide (LASIX 100MG) 60 MG Q8H IV Sodium Chloride (OCEAN 0.65% 45 ML NASAL SOLN) 1 SPRAY Q6H PRN PRN NASAL Glipizide (GLUCOTROL) 10 MG BID PO Aspirin (ASPIRIN 81MG CHEW) 81 MG DAILY PO Clopidogrel Bisulfate (PLAVIX) 75 MG DAILY PO Loratadine (CLARITIN) 10 MG DAILY PO Insulin Human Lispro (HumaLOG 100 UNITS/ML) 0 AC HS SUBQ Dextrose/Water (DEXTROSE 10%) 125 ML ASDIR PRN IV (CKD) Dextrose/Water (DEXTROSE 10%) 250 ML ASDIR PRN IV (CKD) Glucagon (GLUCAGON) 1 MG ASDIR PRN IM Atorvastatin Calcium (Lipitor) 80 MG DAILY@2100 PO Ceftriaxone Sodium (cefTRIAXone 1,000 MG VIAL) 1,000 MG Q24H IV Sodium Chloride (SODIUM CHLORIDE 0.9% 10ML) 10 ML Acetaminophen (TYLENOL 325MG) 650 MG Q4H PRN PRN PO Hydrocodone Bitart/Acetaminophen (NORCO 5/325 TABLET) 1 TAB Q4H PRN PRN PO (DC) Metoprolol Tartrate (LOPRESSOR) 25 MG Q12HR PO Enoxaparin Sodium (LOVENOX) 30 MG Q24H SUBQ Budesonide (PULMICORT) 0.5 MG RTQ12H NEB Formoterol Fumarate (PERFOROMIST) 20 MCG RTBID NEB Albuterol/Ipratropium (IPRATR-ALBUTEROL 0.5-3 MG/3 ML) 3 ML RTQ6H NEB Albuterol/Ipratropium (IPRATR-ALBUTEROL 0.5-3 MG/3 ML) 3 ML RTQ2H PRN PRN NEB Chlorphenir/Hydrocodone Polistirex (TUSSIONEX) 5 ML Q12H PRN PRN PO (DC) Sterile Water (WATER FOR INJECTION) 1 ML ASDIR PRN IV Physical Exam General appearance: awake, oriented Head/Eyes: atraumatic, clear cornea, EOMI, normal conjunctiva/sclera, normal eyelids/periorb, normocephalic, PERRL ENT: normal dentition, normal nose, normal pharynx, normal sinus Neck: full range of motion, non-tender, normal thyroid, supple/no meningismus, no bruit/NL carotids, no JVD, no masses or swelling, no lymphadenopathy Cardiovascular: regular rate rhythm Respiratory: clear to auscultation, no distress Abdomen: non-tender, soft, no distention, no guarding, no mass/organomegaly, no rebound Genitourinary: no flank pain Lymphatics: axilla normal, inguinal normal, neck normal, no lymphadenopathy Diagnosis, Assessment Plan Free Text A P: POS BLOOD CX AWAIT IDENTIFICATION BUT POSSIBLY CONTAMINANT CANNOT BE RULED OUT AC HYPO RESP FAILURE CHF FLUID OVERLOAD DIANNE OHS LEELA/CKI CT CURRENT TX AWAIT BLOOD CX RESULT WILL FOLLOW at 2316 RPT #:[id number] END OF REPORT [facility] 2024-03-05 12:28:00 [facility] ([facility]) Pulmonology Progress Note REPORT#:[id number] REPORT STATUS: Signed REPORT INITIALIZATION DATE:03/05/24 TIME: 1227 PATIENT: WILLI MERRITT UNIT #: [id number] ROOM/BED: [place] [address] : 52 AGE: 73 SEX: M ATTEND: Lisa Layton MD ADM AUTHOR: Dakota Melgar MD REPT SERVICE DT/TIME: 03/05/24 1228 * ALL edits or amendments must be made on the electronic/computer document * Subjective Chief complaint: sob Comments: Diuresing fairly well but taking in large amounts of coffee and other fluid. He also has been demanding extra food from nursing staff. He has no complaints. ROS negative for f/c, n/v. Objective General VS/I O: Last Documented: Result Date Time O2 Delivery Nasal cannula 03/05 1225 O2 Flow Rate 8 03/05 1225 Temp 97.0 03/05 0800 Pulse Ox 97 03/05 0200 B/P 116/68 03/05 0200 B/P Mean 87 03/05 0200 Pulse 64 03/05 0200 Resp 20 03/05 0200 FiO2 50 03/04 1414 24 hour I O ending at 0700: 03/04 1900 03/05 0700 Intake Total 240 600 Output Total 500 1450 Balance -260 -850 Intake, Oral 240 600 Number 1 Bowel Movements Number Voids 1 3 Output, Urine 500 1450 PATIENT WEIGHT: Weight (lb): 264 Weight (oz): 8.88 Weight (kg): 120.000 Medications: Active Meds + DC'd Last 24 Hrs Fluticasone Propionate (FLONASE NASAL SPRAY) 2 SPRAY DAILY NASAL (CKD) Methylprednisolone Sodium Succinate (Solu-Medrol 40 MG Vial) 40 MG DAILY IV Insulin Glargine (Semglee) 25 UNITS Q12HR SUBQ Furosemide (LASIX 100MG) 60 MG Q8H IV Vancomycin HCl (VANCOMYCIN 1,000 MG VIAL) 1,500 MG Q24H IV (DC) Sodium Chloride (SODIUM CHLORIDE 0.9%) 250 ML Sodium Chloride (OCEAN 0.65% 45 ML NASAL SOLN) 1 SPRAY Q6H PRN PRN NASAL Miscellaneous Information (VANCOMYCIN PHARMACY TO DOSE) 1 EACH ASDIR IV (DC) Glipizide (GLUCOTROL) 10 MG BID PO Aspirin (ASPIRIN 81MG CHEW) 81 MG DAILY PO Clopidogrel Bisulfate (PLAVIX) 75 MG DAILY PO Loratadine (CLARITIN) 10 MG DAILY PO Insulin Human Lispro (HumaLOG 100 UNITS/ML) 0 AC HS SUBQ Dextrose/Water (DEXTROSE 10%) 125 ML ASDIR PRN IV (CKD) Dextrose/Water (DEXTROSE 10%) 250 ML ASDIR PRN IV (CKD) Glucagon (GLUCAGON) 1 MG ASDIR PRN IM Atorvastatin Calcium (Lipitor) 80 MG DAILY@2100 PO Ceftriaxone Sodium (cefTRIAXone 1,000 MG VIAL) 1,000 MG Q24H IV Sodium Chloride (SODIUM CHLORIDE 0.9% 10ML) 10 ML Acetaminophen (TYLENOL 325MG) 650 MG Q4H PRN PRN PO Hydrocodone Bitart/Acetaminophen (NORCO 5/325 TABLET) 1 TAB Q4H PRN PRN PO Metoprolol Tartrate (LOPRESSOR) 25 MG Q12HR PO Enoxaparin Sodium (LOVENOX) 30 MG Q24H SUBQ Budesonide (PULMICORT) 0.5 MG RTQ12H NEB Formoterol Fumarate (PERFOROMIST) 20 MCG RTBID NEB Mupirocin (BACTROBAN 2% 22 GM OINT) 1 APPLIC BID NASAL (DC) Albuterol/Ipratropium (IPRATR-ALBUTEROL 0.5-3 MG/3 ML) 3 ML RTQ6H NEB Albuterol/Ipratropium (IPRATR-ALBUTEROL 0.5-3 MG/3 ML) 3 ML RTQ2H PRN PRN NEB Chlorphenir/Hydrocodone Polistirex (TUSSIONEX) 5 ML Q12H PRN PRN PO (DC) Sterile Water (WATER FOR INJECTION) 1 ML ASDIR PRN IV Physical Exam General appearance: respiratory support, alert, awake, no acute distress Neck: no JVD, no lymphadenopathy Cardiovascular: normal S1/S2, regular rate rhythm, no murmur, no rub, no gallop Respiratory/chest: decreased breath sounds, on oxygen, rales Abdomen: soft, normal bowel sounds, no distention Extremities: edema, normal temperature, no clubbing Musculoskeletal: normal inspection, no muscle spasm Neuro/HAND STONER: alert, oriented X 3, CNII-XII intact, no motor deficits Skin: dry, stasis hyperpigmentation Lymphatics: neck normal, no lymphadenopathy Psychiatry: normal affect, normal mood Results Findings/Data: Laboratory Tests 03/05/24 0624: [Embedded Image Not Available] Laboratory Tests 03/04 03/05 03/05 03/05 1603 0624 0704 1139 Chemistry Sodium (134.0 - 147.0 mmol/l) 140 Potassium (3.6 - 5.2 mmol/L) 3.8 Chloride (98.0 - 107.0 mmol/l) 97 L Carbon Dioxide (21.0 - 33.0 mmol/l) 40.2 *H Anion Gap (0 - 20) 6.6 BUN (7.0 - 18.0 mg/dl) 33 H Creatinine (0.60 - 1.30 mg/dL) 1.29 Estimated Creat Clear (>30 mL/min) 47 Glomerular Filtr Rate (mL/min) 59 Glucose (70.0 - 110.0 mg/dl) 42 *L POC Glucose (70 - 110 mg/dL) 355 H 60 L 221 H Calcium (8.0 - 10.5 mg/dl) 8.3 Laboratory Tests 03/04 1325 Toxicology Vancomycin Trough (10 - 20 mcg/mL) 3.1 L Diagnosis, Assessment Plan Free Text A P: 1. Acute hypercapnic/hypoxemic respiratory failure on chronic hypoxemic respiratory failure O2 via high flow nasal cannula Wean to baseline of 6 L/min as tolerated Worsened related to pulmonary edema Continue diuresis as tolerated -> increased diuretic 2. CHF exacerbation significant fluid overload recent echo: EF 45-49% with grade 2 DD, moderately dilated RV and reduced RV systolic function continue IV Lasix fluid restrict cardiology following 3. DIANNE/OHS Patient reports having inconsistently using home CPAP Will continue to use BiPAP nightly and as needed while hospitalized 4. Acute kidney injury with chronic kidney disease? Continue to follow BUN and creatinine May improve with diuresis monitor electrolytes/renal function 5. Hypokalemia Replace as needed 6. Bacteremia contaminant? ID following follow repeat blood cultures Ok to transfer out of ICU from my standpoint. Orders: Procedure Date/time Status Fluid restriction to __ liters 03/05 1229 Active at 1231 RPT #:[id number] END OF REPORT [facility] 2024-03-05 11:34:00 [facility] ([facility] Cardiology Progress Note REPORT#:[id number] REPORT STATUS: Signed REPORT INITIALIZATION DATE:03/05/24 TIME: 1133 PATIENT: WILLI MERRITT UNIT #: [id number] ROOM/BED: [place] [address] : 52 AGE: 73 SEX: M ATTEND: Lisa Layton MD ADM AUTHOR: Elizabeth David MD REPT SERVICE DT/TIME: 03/05/24 1134 * ALL edits or amendments must be made on the electronic/computer document * Subjective Chief complaint: overall appears better. Still has shortness of breath Objective General VS/I O: 24 hour I O ending at 0700: 03/05 0700 03/04 1900 Intake Total 600 240 Output Total 1450 500 Balance -850 -260 Intake, Oral 600 240 Number 1 Bowel Movements Number Voids 3 1 Output, Urine 1450 500 Vital Signs: Date Time Temp Pulse Resp B/P B/P Pulse O2 O2 Flow FiO2 Mean Ox Delivery Rate 03/05 0800 97.0 03/05 0200 64 20 116/68 87 97 03/05 0000 68 9 117/64 85 94 03/04 2245 77 24 131/66 91 96 03/04 2128 Nasal 15 cannula 03/04 2030 74 50 148/72 103 76 03/04 1836 98 Venti mask 15 03/04 1732 119/66 87 96 03/04 1621 98.0 03/04 1457 139/63 90 99 03/04 1414 79 96 50 03/04 1200 98.0 03/04 1200 83 23 134/57 77 PATIENT WEIGHT: Weight (lb): 264 Weight (oz): 8.88 Weight (kg): 120.000 Medications: Active Meds + DC'd Last 24 Hrs Fluticasone Propionate (FLONASE NASAL SPRAY) 2 SPRAY DAILY NASAL (CKD) Methylprednisolone Sodium Succinate (Solu-Medrol 40 MG Vial) 40 MG DAILY IV Insulin Glargine (Semglee) 25 UNITS Q12HR SUBQ Furosemide (LASIX 100MG) 60 MG Q8H IV Vancomycin HCl (VANCOMYCIN 1,000 MG VIAL) 1,500 MG Q24H IV (DC) Sodium Chloride (SODIUM CHLORIDE 0.9%) 250 ML Sodium Chloride (OCEAN 0.65% 45 ML NASAL SOLN) 1 SPRAY Q6H PRN PRN NASAL Miscellaneous Information (VANCOMYCIN PHARMACY TO DOSE) 1 EACH ASDIR IV (DC) Glipizide (GLUCOTROL) 10 MG BID PO Aspirin (ASPIRIN 81MG CHEW) 81 MG DAILY PO Clopidogrel Bisulfate (PLAVIX) 75 MG DAILY PO Loratadine (CLARITIN) 10 MG DAILY PO Insulin Human Lispro (HumaLOG 100 UNITS/ML) 0 AC HS SUBQ Dextrose/Water (DEXTROSE 10%) 125 ML ASDIR PRN IV (CKD) Dextrose/Water (DEXTROSE 10%) 250 ML ASDIR PRN IV (CKD) Glucagon (GLUCAGON) 1 MG ASDIR PRN IM Atorvastatin Calcium (Lipitor) 80 MG DAILY@2100 PO Ceftriaxone Sodium (cefTRIAXone 1,000 MG VIAL) 1,000 MG Q24H IV Sodium Chloride (SODIUM CHLORIDE 0.9% 10ML) 10 ML Acetaminophen (TYLENOL 325MG) 650 MG Q4H PRN PRN PO Hydrocodone Bitart/Acetaminophen (NORCO 5/325 TABLET) 1 TAB Q4H PRN PRN PO Metoprolol Tartrate (LOPRESSOR) 25 MG Q12HR PO Enoxaparin Sodium (LOVENOX) 30 MG Q24H SUBQ Budesonide (PULMICORT) 0.5 MG RTQ12H NEB Formoterol Fumarate (PERFOROMIST) 20 MCG RTBID NEB Mupirocin (BACTROBAN 2% 22 GM OINT) 1 APPLIC BID NASAL (DC) Albuterol/Ipratropium (IPRATR-ALBUTEROL 0.5-3 MG/3 ML) 3 ML RTQ6H NEB Albuterol/Ipratropium (IPRATR-ALBUTEROL 0.5-3 MG/3 ML) 3 ML RTQ2H PRN PRN NEB Chlorphenir/Hydrocodone Polistirex (TUSSIONEX) 5 ML Q12H PRN PRN PO (DC) Sterile Water (WATER FOR INJECTION) 1 ML ASDIR PRN IV Physical Exam General appearance: alert, awake Head/Eyes: atraumatic ENT: moist mucosal membranes Neck: non-tender Cardiovascular: CV assessment: regular rate and rhythm Respiratory: decreased breath sounds, rales Abdomen: soft, non-tender Lower extremity: LE assessment: edema Diagnosis, Assessment Plan Hospital course to date: Echocardiogram done on 02/24/2024 showed EF about 45% to 50%. Right ventricular systolic function is also reduced. ASSESSMENT AND PLAN: A 73-year-old male patient with history of coronary artery disease, chronic systolic heart failure, hypertension, comes with acute respiratory failure. 1. Acute respiratory failure. Continue BiPAP as per Primary Service and Pulmonary Critical Care. 2. Acute on chronic systolic heart failure. Continue home medicine. We will resume her home medicine and follow up. Keep him on fluid restricted diet. Continue Lasix to 40 mg IV bid 3. Coronary artery disease, mild troponin elevation consistent with type 2 myocardial infarction, especially given hypoxia. Plan: We will continue to monitor closely. Further workup can be done at a later date, possibly as an outpatient. 4. Hypertension. Continue home medications. 5. Diabetes mellitus. Continue as per primary service. Will continue to follow. at 1443 RPT #:[id number] END OF REPORT [facility] 2024-03-05 09:12:00 [facility] ([facility]) Hospitalist Progress Note REPORT#:[id number] REPORT STATUS: Signed REPORT INITIALIZATION DATE:03/05/24 TIME: 911 PATIENT: WILLI MERRITT UNIT #: [id number] ROOM/BED: [place] [address] : 52 AGE: 73 SEX: M ATTEND: Lisa Layton MD ADM AUTHOR: Tricia Schofield MD REPT SERVICE DT/TIME: 03/05/24 09 * ALL edits or amendments must be made on the electronic/computer document * Subjective Chief complaint: Seen in ICU Follow-up acute on chronic respiratory failure Sitting on the side of the bed, Ventimask 8 L Blood sugars dropped Patient asymptomatic Review of Systems Constitutional: Denies: fever. Respiratory: Denies: productive cough (sputum), SOB. Cardiovascular: Denies: chest pain. GI: Denies: nausea, vomiting. Objective General VS/I O: Laboratory Tests 03/05/24 0624: [Embedded Image Not Available] 03/04/24 0540: [Embedded Image Not Available] Active Meds + DC'd Last 24 Hrs Fluticasone Propionate (FLONASE NASAL SPRAY) 2 SPRAY DAILY NASAL (CKD) Methylprednisolone Sodium Succinate (Solu-Medrol 40 MG Vial) 40 MG DAILY IV Insulin Glargine (Semglee) 25 UNITS Q12HR SUBQ Furosemide (LASIX 100MG) 60 MG Q8H IV Vancomycin HCl (VANCOMYCIN 1,000 MG VIAL) 1,500 MG Q24H IV (DC) Sodium Chloride (SODIUM CHLORIDE 0.9%) 250 ML Sodium Chloride (OCEAN 0.65% 45 ML NASAL SOLN) 1 SPRAY Q6H PRN PRN NASAL Miscellaneous Information (VANCOMYCIN PHARMACY TO DOSE) 1 EACH ASDIR IV (DC) Glipizide (GLUCOTROL) 10 MG BID PO Aspirin (ASPIRIN 81MG CHEW) 81 MG DAILY PO Clopidogrel Bisulfate (PLAVIX) 75 MG DAILY PO Loratadine (CLARITIN) 10 MG DAILY PO Insulin Human Lispro (HumaLOG 100 UNITS/ML) 0 AC HS SUBQ Dextrose/Water (DEXTROSE 10%) 125 ML ASDIR PRN IV (CKD) Dextrose/Water (DEXTROSE 10%) 250 ML ASDIR PRN IV (CKD) Glucagon (GLUCAGON) 1 MG ASDIR PRN IM Atorvastatin Calcium (Lipitor) 80 MG DAILY@2100 PO Ceftriaxone Sodium (cefTRIAXone 1,000 MG VIAL) 1,000 MG Q24H IV Sodium Chloride (SODIUM CHLORIDE 0.9% 10ML) 10 ML Acetaminophen (TYLENOL 325MG) 650 MG Q4H PRN PRN PO Hydrocodone Bitart/Acetaminophen (NORCO 5/325 TABLET) 1 TAB Q4H PRN PRN PO Metoprolol Tartrate (LOPRESSOR) 25 MG Q12HR PO Enoxaparin Sodium (LOVENOX) 30 MG Q24H SUBQ Budesonide (PULMICORT) 0.5 MG RTQ12H NEB Formoterol Fumarate (PERFOROMIST) 20 MCG RTBID NEB Mupirocin (BACTROBAN 2% 22 GM OINT) 1 APPLIC BID NASAL (DC) Albuterol/Ipratropium (IPRATR-ALBUTEROL 0.5-3 MG/3 ML) 3 ML RTQ6H NEB Albuterol/Ipratropium (IPRATR-ALBUTEROL 0.5-3 MG/3 ML) 3 ML RTQ2H PRN PRN NEB Chlorphenir/Hydrocodone Polistirex (TUSSIONEX) 5 ML Q12H PRN PRN PO (DC) Sterile Water (WATER FOR INJECTION) 1 ML ASDIR PRN IV Microbiology Date/Time Procedure - Status Source Growth 03/02 1010 Blood Culture - RES BLOOD 03/02 1010 Blood Culture - RES BLOOD 03/02 1000 Blood Culture - RES BLOOD 03/02 1000 Blood Culture - RES BLOOD Recent Impressions-Last 72 Hrs RADIOLOGY - XR CHEST 1 V 03/04 0552 Report Impression - Status: SIGNED Entered: 03/04/2024 0712 IMPRESSION: 1. Enlarged cardiac silhouette with pulmonary vascular congestion/interstitial edema. 2. Blunting of the lateral costophrenic angles compatible with pleural thickening versus trace effusions. LOCATION: B2 Impression By: Luis A - Kashmir Schmidt M.D. Vital Signs: Date Time Temp Pulse Resp B/P B/P Pulse O2 O2 Flow FiO2 Mean Ox Delivery Rate 03/05 0200 64 20 116/68 87 97 03/05 0000 68 9 117/64 85 94 03/04 2245 77 24 131/66 91 96 03/04 2128 Nasal 15 cannula 03/04 2030 74 50 148/72 103 76 03/04 1836 98 Venti mask 15 03/04 1732 119/66 87 96 03/04 1621 98.0 03/04 1457 139/63 90 99 03/04 1414 79 96 50 03/04 1200 98.0 03/04 1200 83 23 134/57 77 03/04 1012 Non 15 rebreather mask 03/04 0947 78 22 139/75 101 24 hour I O ending at 0700: 03/05 0700 03/04 1900 Intake Total 600 240 Output Total 1450 500 Balance -850 -260 Intake, Oral 600 240 Number 1 Bowel Movements Number Voids 3 1 Output, Urine 1450 500 PATIENT WEIGHT: Weight (lb): 264 Weight (oz): 8.88 Weight (kg): 120.000 Free Text Obj Notes Free Text Obj Notes: PHYSICAL EXAMINATION: General appearance: alert , on 8 L Ventimask, no acute distress, obese Head/Eyes: atraumatic, face is symmetric Neck: supple, no masses or swelling Cardiovascular: regular rate rhythm, normal heart sounds Respiratory: Decreased breath sounds bilaterally, no distress Abdomen/GI: active bowel sounds, soft, non-tender, obese Extremities: moves all, PIO LE edema, no cyanosis Neuro/HAND STONER: alert OX3, no focal deficits Skin: dry, intact Psychiatry: mood appropriate Diagnosis, Assessment Plan Free Text DxA P Notes Free text DxA P notes: Acute on chronic hypoxic and hypercapnic respiratory failure On BiPAP Pulmonology follow-up Steroids Solu-Medrol , duonebs Acute on chronic systolic heart failure IV diuresis Cardiology consultation Echocardiogram EF 35 to 39% April 2023 -- 45-49% February 2024; grade 2 diastolic dysfunction Lactic acidosis Follow cultures -- blood cx coag neg staph in 4 -- repeat Continue antibiotics Elevated troponins --like;y type 2 MA H/O disease, cardiac stents cardiology consulted ASA, plavix, statin, beta lisa CKD stage III -- Cr -- 1.4 . 1.7 Pulmonary nodules right upper and lower lobes similar to April 2023 Diabetes mellitus type 2 A1c, SSI, home medications --glipizide and aspart ; schedule Lantus Hypertension blood pressure controlled Morbid obesity BMI 41 --OHS/DIANNE Uses CPAP inconsistently at home Needs lifestyle modification with diet and exercise Dyslipidemia DVT prophylaxis Lovenox -- more alert -- monitor blood sugars -- wean BIPAP -- continue diuresis 03/03/24 --- Acute on chronic hypoxic and hypercapnic respiratory failure, pulmonary edema BiPAP, nasal cannula oxygen, nonrebreather--wean as tolerated pulmonology follow-up --- steroids, DuoNebs --- Acute on chronic systolic heart failure IV diuresis cardiology follow-up Elevated troponins type II MA --- Bacteremia repeat cultures consult ID ; leukocytosis --- CKD stage III creatinine stable 1.4 ; hyponatremia --- Pulmonary nodules -stable pulmonology follow-up --- Diabetes mellitus type 2 increase Lantus; A1c 7.9 --- Morbid obesity BMI 42 OHS, DIANNE needs lifestyle modification --- Dyslipidemia --- DVT prophylaxis Lovenox Wean oxygen as tolerated Increase Lantus monitor blood sugars 03/04/2024 Acute on chronic hypoxic respiratory failure, continue oxygen/BiPAP, on IV steroids Acute on chronic systolic and diastolic CHF EF 45 to 49% with acute pulm edema, continue IV diuresis Type II MA Bacteremia, ID following, on IV antibiotics CKD stage III Diabetes mellitus type 2--- Lantus/lispro regimen Wears 6-8 L of oxygen at home. Still significantly volume overloaded 03/05/24 --- Acute on chronic hypoxic and hypercapnic respiratory failure, pulmonary edema wean oxygen as tolerated pulmonology follow-up --- steroids, DuoNebs --- Acute on chronic systolic heart failure IV diuresis cardiology follow-up Elevated troponins type II MA --- Bacteremia repeat cultures negative to date consult ID ; leukocytosis --- CKD stage III creatinine stable 1.4 1.2; hyponatremia resolved --- Pulmonary nodules -stable pulmonology follow-up --- Diabetes mellitus type 2 increase Lantus; A1c 7.9 --- Morbid obesity BMI 42 OHS, DIANNE needs lifestyle modification --- Dyslipidemia --- DVT prophylaxis Lovenox Wean oxygen as tolerated Monitor blood sugars Lantus dose reduced tonight adjust as needed High-dose IV Lasix 60 every 8 hours at 1448 RPT #:[id number] END OF REPORT [facility] 2024-03-04 16:57:00 [facility] ([facility]) Cardiology Progress Note REPORT#:[id number] REPORT STATUS: Signed REPORT INITIALIZATION DATE:03/04/24 TIME: 1656 PATIENT: WILLI MERRITT UNIT #: [id number] ROOM/BED: [place] [address] : 52 AGE: 73 SEX: M ATTEND: Lisa Layton MD ADM AUTHOR: Elizabeth David MD REPT SERVICE DT/TIME: 03/04/241656 * ALL edits or amendments must be made on the electronic/computer document * Subjective Chief complaint: overall appears better. Still has shortness of breath Objective General VS/I O: 24 hour I O ending at 0700: 03/04 0700 03/03 1900 Intake Total 1300 250.00 Output Total 1325 700 Balance -25 -450.00 Intake, IV 250.00 Intake, Oral 1300 Number Voids 3 1 Output, Urine 1325 700 Vital Signs: Date Time Temp Pulse Resp B/P B/P Pulse O2 O2 Flow FiO2 Mean Ox Delivery Rate 03/04 1621 98.0 03/04 1457 139/63 90 99 03/04 1414 79 96 50 03/04 1200 98.0 03/04 1200 83 23 134/57 77 03/04 1012 Non 15 rebreather mask 03/04 0819 100 Venti mask 15 03/04 0817 90 03/04 0802 113/66 85 78 03/04 0730 98 Non 15 rebreather mask 03/04 0405 76 26 131/67 91 62 03/04 0046 72 30 120/77 88 74 03/03 2108 Non 15 rebreather mask 03/03 2006 72 23 132/63 90 81 03/03 1901 72 18 130/66 93 100 03/03 1837 96 Nasal 12 cannula 03/03 1813 75 25 149/72 103 PATIENT WEIGHT: Weight (lb): 264 Weight (oz): 8.88 Weight (kg): 120.000 Medications: Active Meds + DC'd Last 24 Hrs Fluticasone Propionate (FLONASE NASAL SPRAY) 2 SPRAY DAILY NASAL (CKD) Methylprednisolone Sodium Succinate (Solu-Medrol 40 MG Vial) 40 MG DAILY IV Insulin Glargine (Semglee) 25 UNITS Q12HR SUBQ Furosemide (LASIX 100MG) 60 MG Q8H IV Vancomycin HCl (VANCOMYCIN 1,000 MG VIAL) 1,500 MG Q24H IV (DC) Sodium Chloride (SODIUM CHLORIDE 0.9%) 250 ML Sodium Chloride (OCEAN 0.65% 45 ML NASAL SOLN) 1 SPRAY Q6H PRN PRN NASAL Miscellaneous Information (VANCOMYCIN PHARMACY TO DOSE) 1 EACH ASDIR IV (DC) Glipizide (GLUCOTROL) 10 MG BID PO Aspirin (ASPIRIN 81MG CHEW) 81 MG DAILY PO Clopidogrel Bisulfate (PLAVIX) 75 MG DAILY PO Loratadine (CLARITIN) 10 MG DAILY PO Insulin Human Lispro (HumaLOG 100 UNITS/ML) 0 AC HS SUBQ Dextrose/Water (DEXTROSE 10%) 125 ML ASDIR PRN IV (CKD) Dextrose/Water (DEXTROSE 10%) 250 ML ASDIR PRN IV (CKD) Glucagon (GLUCAGON) 1 MG ASDIR PRN IM Atorvastatin Calcium (Lipitor) 80 MG DAILY@2100 PO Ceftriaxone Sodium (cefTRIAXone 1,000 MG VIAL) 1,000 MG Q24H IV Sodium Chloride (SODIUM CHLORIDE 0.9% 10ML) 10 ML Acetaminophen (TYLENOL 325MG) 650 MG Q4H PRN PRN PO Hydrocodone Bitart/Acetaminophen (NORCO 5/325 TABLET) 1 TAB Q4H PRN PRN PO Metoprolol Tartrate (LOPRESSOR) 25 MG Q12HR PO Enoxaparin Sodium (LOVENOX) 30 MG Q24H SUBQ Budesonide (PULMICORT) 0.5 MG RTQ12H NEB Formoterol Fumarate (PERFOROMIST) 20 MCG RTBID NEB Mupirocin (BACTROBAN 2% 22 GM OINT) 1 APPLIC BID NASAL Albuterol/Ipratropium (IPRATR-ALBUTEROL 0.5-3 MG/3 ML) 3 ML RTQ6H NEB Albuterol/Ipratropium (IPRATR-ALBUTEROL 0.5-3 MG/3 ML) 3 ML RTQ2H PRN PRN NEB Chlorphenir/Hydrocodone Polistirex (TUSSIONEX) 5 ML Q12H PRN PRN PO Sterile Water (WATER FOR INJECTION) 1 ML ASDIR PRN IV Physical Exam General appearance: alert, awake Head/Eyes: atraumatic ENT: moist mucosal membranes Neck: non-tender Cardiovascular: CV assessment: regular rate and rhythm Respiratory: decreased breath sounds, rales Abdomen: soft, non-tender Lower extremity: LE assessment: edema Diagnosis, Assessment Plan Hospital course to date: Echocardiogram done on 02/24/2024 showed EF about 45% to 50%. Right ventricular systolic function is also reduced. ASSESSMENT AND PLAN: A 73-year-old male patient with history of coronary artery disease, chronic systolic heart failure, hypertension, comes with acute respiratory failure. 1. Acute respiratory failure. Continue BiPAP as per Primary Service and Pulmonary Critical Care. 2. Acute on chronic systolic heart failure. Continue home medicine. We will resume her home medicine and follow up. Keep him on fluid restricted diet. Continue Lasix to 40 mg IV bid 3. Coronary artery disease, mild troponin elevation consistent with type 2 myocardial infarction, especially given hypoxia. Plan: We will continue to monitor closely. Further workup can be done at a later date, possibly as an outpatient. 4. Hypertension. Continue home medications. 5. Diabetes mellitus. Continue as per primary service. Will continue to follow. at 1658 RPT #:[id number] END OF REPORT [facility] 2024-03-04 11:36:00 [facility] ([facility]) Hospitalist Progress Note REPORT#:[id number] REPORT STATUS: Signed REPORT INITIALIZATION DATE:03/04/24 TIME: 1135 PATIENT: WILLI MERRITT UNIT #: [id number] RO[address]BED: [address] : [birth year] AGE: 73 SEX: M ATTEND: Lisa Layton MD ADM AUTHOR: Consuelo Khalil MD REPT SERVICE DT/TIME: 03/04/24 1136 * ALL edits or amendments must be made on the electronic/computer document * Subjective Chief complaint: Seen in ICU Follow-up acute on chronic respiratory failure Sitting on the side of the bed, on nasal cannula, used BiPAP at night, slowly feeling better, good urine output ROS negative except above Objective General VS/I O: Vital Signs: Date Time Temp Pulse Resp B/P B/P Pulse O2 O2 Flow FiO2 Mean Ox Delivery Rate 03/04 1012 Non 15 rebreather mask 03/04 0819 100 Venti mask 15 03/04 0817 90 03/04 0802 113/66 85 78 03/04 0730 98 Non 15 rebreather mask 03/04 0405 76 26 131/67 91 62 03/04 0046 72 30 120/77 88 74 03/03 2108 Non 15 rebreather mask 03/03 2006 72 23 132/63 90 81 03/03 1901 72 18 130/66 93 100 03/03 1837 96 Nasal 12 cannula 03/03 1813 75 25 149/72 103 03/03 1600 37.0 03/03 1600 71 29 123/74 92 91 03/03 1500 68 18 133/70 96 100 03/03 1403 69 26 123/79 94 92 03/03 1400 76 30 73 03/03 1300 72 21 83 03/03 1200 36.9 03/03 1200 65 25 130/67 92 100 24 hour I O ending at 0700: 03/03 1900 03/04 0700 Intake Total 250.00 1300 Output Total 700 1325 Balance -450.00 -25 Intake, IV 250.00 Intake, Oral 1300 Number Voids 1 3 Output, Urine 700 1325 PATIENT WEIGHT: Weight (lb): 264 Weight (oz): 8.88 Weight (kg): 120.000 Results Findings/Data: Laboratory Tests 03/0340 5315 Chemistry Sodium (134.0 - 147.0 mmol/l) 140 Potassium (3.6 - 5.2 mmol/L) 4.5 Chloride (98.0 - 107.0 mmol/l) 97 L Carbon Dioxide (21.0 - 33.0 mmol/l) 38.4 H Anion Gap (0 - 20) 9.1 BUN (7.0 - 18.0 mg/dl) 39 H Creatinine (0.60 - 1.30 mg/dL) 1.42 H Estimated Creat Clear (>30 mL/min) 43 Glomerular Filtr Rate (mL/min) 53 Glucose (70.0 - 110.0 mg/dl) 223 H POC Glucose (70 - 110 mg/dL) 314 H 168 H Calcium (8.0 - 10.5 mg/dl) 9.0 Laboratory Tests 03/04 0540 Hematology WBC (4.5 - 11.0 K/mm3) 14.4 H RBC (4.40 - 5.90 M/mm3) 3.99 L Hgb (13.0 - 17.0 gm/dL) 11.1 L Hct (36.0 - 48.0 %) 38.5 MCV (80.0 - 94.0 UM3) 96.5 H MCH (25.5 - 32.5 UUG) 27.8 MCHC (29.0 - 35.5 gm/dL) 28.8 L RDW (11.5 - 15.0 %) 19.3 H Plt Count (150 - 400 K/mm3) 177 MPV (7.4 - 10.4 fl) 11.2 H Radiology data: Recent Impressions: RADIOLOGY - XR CHEST 1 V 03/04 0552 Report Impression - Status: SIGNED Entered: 03/04/2024 0712 IMPRESSION: 1. Enlarged cardiac silhouette with pulmonary vascular congestion/interstitial edema. 2. Blunting of the lateral costophrenic angles compatible with pleural thickening versus trace effusions. LOCATION: B2 Impression By: Luis A Schmidt M.D. Free Text Obj Notes Free Text Obj Notes: PHYSICAL EXAMINATION: General appearance: alert , on nonrebreather and nasal cannula oxygen, no acute distress, obese Head/Eyes: atraumatic, face is symmetric Neck: supple, no masses or swelling Cardiovascular: regular rate rhythm, normal heart sounds Respiratory: Decreased breath sounds bilaterally, no distress Abdomen/GI: active bowel sounds, soft, non-tender, obese Extremities: moves all, PIO LE edema, no cyanosis Neuro/HAND STONER: alert OX3, no focal deficits Skin: dry, intact Psychiatry: mood appropriate Diagnosis, Assessment Plan Free Text DxA P Notes Free text DxA P notes: Acute on chronic hypoxic and hypercapnic respiratory failure On BiPAP Pulmonology follow-up Steroids Solu-Medrol , duonebs Acute on chronic systolic heart failure IV diuresis Cardiology consultation Echocardiogram EF 35 to 39% April 2023 -- 45-49% February 2024; grade 2 diastolic dysfunction Lactic acidosis Follow cultures -- blood cx coag neg staph in 4 -- repeat Continue antibiotics Elevated troponins --like;y type 2 MA H/O disease, cardiac stents cardiology consulted ASA, plavix, statin, beta lisa CKD stage III -- Cr -- 1.4 . 1.7 Pulmonary nodules right upper and lower lobes similar to April 2023 Diabetes mellitus type 2 A1c, SSI, home medications --glipizide and aspart ; schedule Lantus Hypertension blood pressure controlled Morbid obesity BMI 41 --OHS/DIANNE Uses CPAP inconsistently at home Needs lifestyle modification with diet and exercise Dyslipidemia DVT prophylaxis Lovenox -- more alert -- monitor blood sugars -- wean BIPAP -- continue diuresis 03/03/24 --- Acute on chronic hypoxic and hypercapnic respiratory failure, pulmonary edema BiPAP, nasal cannula oxygen, nonrebreather--wean as tolerated pulmonology follow-up --- steroids, DuoNebs --- Acute on chronic systolic heart failure IV diuresis cardiology follow-up Elevated troponins type II MA --- Bacteremia repeat cultures consult ID ; leukocytosis --- CKD stage III creatinine stable 1.4 ; hyponatremia --- Pulmonary nodules -stable pulmonology follow-up --- Diabetes mellitus type 2 increase Lantus; A1c 7.9 --- Morbid obesity BMI 42 OHS, DIANNE needs lifestyle modification --- Dyslipidemia --- DVT prophylaxis Lovenox Wean oxygen as tolerated Increase Lantus monitor blood sugars 03/04/2024 Acute on chronic hypoxic respiratory failure, continue oxygen/BiPAP, on IV steroids Acute on chronic systolic and diastolic CHF EF 45 to 49% with acute pulm edema, continue IV diuresis Type II MA Bacteremia, ID following, on IV antibiotics CKD stage III Diabetes mellitus type 2--- Lantus/lispro regimen Wears 6-8 L of oxygen at home. Still significantly volume overloaded at 1140 RPT #:[id number] END OF REPORT [facility] 2024-03-04 11:16:00 [facility] ([facility]) Pulmonology Progress Note REPORT#:[id number] REPORT STATUS: Signed REPORT INITIALIZATION DATE:03/04/24 TIME: 1116 PATIENT: WILLI MERRITT UNIT #: [id number] ROOM/BED: [place] [address] : 52 AGE: 73 SEX: M ATTEND: Lisa Layton MD ADM AUTHOR: Dakota Melgar MD REPT SERVICE DT/TIME: 03/04/24 1116 * ALL edits or amendments must be made on the electronic/computer document * Subjective Chief complaint: sob Patient reports: Yes: feeling better, resting comfortably, tolerating diet. No: complaints, congestion, cough. Comments: Sitting up edge of bed. He remains on nasal cannula oxygen. Continues to be edematous but states he is steadily feeling better. No new complaints. ROS negative for f/c, n/v. Objective General VS/I O: Last Documented: Result Date Time O2 Delivery Non rebreather mask 03/04 1012 O2 Flow Rate 15 03/04 1012 Pulse Ox 100 03/04 0819 B/P 113/66 03/04 0802 B/P Mean 85 03/04 0802 Pulse 76 03/04 0405 Resp 26 03/04 0405 Temp 98.6 03/03 1600 FiO2 40 03/02 2000 24 hour I O ending at 0700: 03/03 1900 03/04 0700 Intake Total 250.00 1300 Output Total 700 1325 Balance -450.00 -25 Intake, IV 250.00 Intake, Oral 1300 Number Voids 1 3 Output, Urine 700 1325 PATIENT WEIGHT: Weight (lb): 264 Weight (oz): 8.88 Weight (kg): 120.000 Medications: Active Meds + DC'd Last 24 Hrs Fluticasone Propionate (FLONASE NASAL SPRAY) 2 SPRAY DAILY NASAL (CKD) Methylprednisolone Sodium Succinate (Solu-Medrol 40 MG Vial) 40 MG DAILY IV Insulin Glargine (Semglee) 25 UNITS Q12HR SUBQ Furosemide (LASIX 100MG) 60 MG Q8H IV Vancomycin HCl (VANCOMYCIN 1,000 MG VIAL) 1,500 MG Q24H IV Sodium Chloride (SODIUM CHLORIDE 0.9%) 250 ML Sodium Chloride (OCEAN 0.65% 45 ML NASAL SOLN) 1 SPRAY Q6H PRN PRN NASAL Miscellaneous Information (VANCOMYCIN PHARMACY TO DOSE) 1 EACH ASDIR IV (CKD) Glipizide (GLUCOTROL) 10 MG BID PO Furosemide (LASIX 40MG INJ) 40 MG BID 9A 5P IV (DC) Aspirin (ASPIRIN 81MG CHEW) 81 MG DAILY PO Clopidogrel Bisulfate (PLAVIX) 75 MG DAILY PO Loratadine (CLARITIN) 10 MG DAILY PO Insulin Human Lispro (HumaLOG 100 UNITS/ML) 0 AC HS SUBQ Dextrose/Water (DEXTROSE 10%) 125 ML ASDIR PRN IV (CKD) Dextrose/Water (DEXTROSE 10%) 250 ML ASDIR PRN IV (CKD) Glucagon (GLUCAGON) 1 MG ASDIR PRN IM Atorvastatin Calcium (Lipitor) 80 MG DAILY@2100 PO Ceftriaxone Sodium (cefTRIAXone 1,000 MG VIAL) 1,000 MG Q24H IV Sodium Chloride (SODIUM CHLORIDE 0.9% 10ML) 10 ML Acetaminophen (TYLENOL 325MG) 650 MG Q4H PRN PRN PO Hydrocodone Bitart/Acetaminophen (NORCO 5/325 TABLET) 1 TAB Q4H PRN PRN PO Methylprednisolone Sodium Succinate (Solu-Medrol 40 MG Vial) 40 MG Q8HR IV (DC) Metoprolol Tartrate (LOPRESSOR) 25 MG Q12HR PO Enoxaparin Sodium (LOVENOX) 30 MG Q24H SUBQ Budesonide (PULMICORT) 0.5 MG RTQ12H NEB Formoterol Fumarate (PERFOROMIST) 20 MCG RTBID NEB Mupirocin (BACTROBAN 2% 22 GM OINT) 1 APPLIC BID NASAL Albuterol/Ipratropium (IPRATR-ALBUTEROL 0.5-3 MG/3 ML) 3 ML RTQ6H NEB Albuterol/Ipratropium (IPRATR-ALBUTEROL 0.5-3 MG/3 ML) 3 ML RTQ2H PRN PRN NEB Chlorphenir/Hydrocodone Polistirex (TUSSIONEX) 5 ML Q12H PRN PRN PO Sterile Water (WATER FOR INJECTION) 1 ML ASDIR PRN IV Dietitian nutrition assessment The data set between the solid lines has been imported from the dietitian's assessment. BMI Calculated: 42.7 Nutrition related diagnosis: Nutrition diagnosis details: Nutrition problem: Nutrition etiology: Nutrition signs and symptoms: Nutrition prescription: Dietitian name: Assessment completed: Physical Exam General appearance: respiratory support, alert, awake, no acute distress, pleasant, conversational Neck: no JVD, no lymphadenopathy Cardiovascular: normal S1/S2, regular rate rhythm, no murmur, no rub, no gallop Respiratory/chest: decreased breath sounds, on oxygen, rales Abdomen: soft, normal bowel sounds, no distention Extremities: edema, normal temperature, no clubbing Musculoskeletal: normal inspection, no muscle spasm Neuro/HAND STONER: alert, oriented X 3, CNII-XII intact, no motor deficits Skin: dry, stasis hyperpigmentation Lymphatics: neck normal, no lymphadenopathy Psychiatry: normal affect, normal mood Results Findings/Data: Laboratory Tests 03/04/24539: [Embedded Image Not Available] Laboratory Tests 03/03 0744 Chemistry Sodium (134.0 - 147.0 mmol/l) 140 Potassium (3.6 - 5.2 mmol/L) 4.5 Chloride (98.0 - 107.0 mmol/l) 97 L Carbon Dioxide (21.0 - 33.0 mmol/l) 38.4 H Anion Gap (0 - 20) 9.1 BUN (7.0 - 18.0 mg/dl) 39 H Creatinine (0.60 - 1.30 mg/dL) 1.42 H Estimated Creat Clear (>30 mL/min) 43 Glomerular Filtr Rate (mL/min) 53 Glucose (70.0 - 110.0 mg/dl) 223 H POC Glucose (70 - 110 mg/dL) 314 H 168 H Calcium (8.0 - 10.5 mg/dl) 9.0 Laboratory Tests 03/04 540 Hematology WBC (4.5 - 11.0 K/mm3) 14.4 H RBC (4.40 - 5.90 M/mm3) 3.99 L Hgb (13.0 - 17.0 gm/dL) 11.1 L Hct (36.0 - 48.0 %) 38.5 MCV (80.0 - 94.0 UM3) 96.5 H MCH (25.5 - 32.5 UUG) 27.8 MCHC (29.0 - 35.5 gm/dL) 28.8 L RDW (11.5 - 15.0 %) 19.3 H Plt Count (150 - 400 K/mm3) 177 MPV (7.4 - 10.4 fl) 11.2 H Radiology data: Recent Impressions: RADIOLOGY - XR CHEST 1 V 03/04 0552 Report Impression - Status: SIGNED Entered: 03/04/2024711 IMPRESSION: 1. Enlarged cardiac silhouette with pulmonary vascular congestion/interstitial edema. 2. Blunting of the lateral costophrenic angles compatible with pleural thickening versus trace effusions. LOCATION: B2 Impression By: Luis A - Kashmir Schmidt M.D. Diagnosis, Assessment Plan Free Text A P: 1. Acute hypercapnic/hypoxemic respiratory failure on chronic hypoxemic respiratory failure O2 via high flow nasal cannula Wean to baseline of 6 L/min as tolerated Worsened related to pulmonary edema Continue diuresis as tolerated -> increased diuretic 2. CHF exacerbation significant fluid overload recent echo: EF 45-49% with grade 2 DD, moderately dilated RV and reduced RV systolic function continue IV Lasix cardiology following 3. DIANNE/OHS Patient reports having inconsistently using home CPAP Will continue to use BiPAP nightly and as needed while hospitalized 4. Acute kidney injury with chronic kidney disease? Continue to follow BUN and creatinine May improve with diuresis monitor electrolytes/renal function 5. Hypokalemia Replace as needed 6. Bacteremia contaminant? ID evaluation Ok to transfer out of ICU from my standpoint. at 1117 RPT #:[id number] END OF REPORT [facility] 2024-03-03 17:08:00 [facility] ([facility]) Infect Dis Consult Note_ Brief REPORT#:[id number] REPORT STATUS: Signed REPORT INITIALIZATION DATE:03/03/24 TIME: 1708 PATIENT: WILLI MERRITT UNIT #: [id number] ROOM/BED: [place] [id number] : 52 AGE: 73 SEX: M ATTEND: Lisa Layton MD ADM AUTHOR: Elyse Jenkins MD REPT SERVICE DT/TIME: 03/03/24 1708 * ALL edits or amendments must be made on the electronic/computer document * History - Adult longitudinal Past medical history: Reports: Coronary artery disease, Diabetes mellitus, Hypertension, Dyslipidemia. Additional medical history: Systolic CHF, diabetes mellitus type 2, hypertension, coronary artery disease s/p stents, chronic hypoxemia on home oxygen Additional surgical history: None Additional family history: Not contributory to current problem Alcohol use: Denies EtOH use Drug use: Denies recreational drugs Smoking status for patients 13 years old or older: Unknown,if ever smoked Allergies: Coded Allergies: No Known Allergies (12/23/21) at 2341 RPT #:[id number] END OF REPORT [facility] 2024-03-03 12:53:00 [facility] Pulmonology Progress Note REPORT#:[id number] REPORT STATUS: Signed REPORT INITIALIZATION DATE:03/03/24 TIME: 1253 PATIENT: WILLI MERRITT UNIT #: [id number] ROOM/BED: [facility] : 52 AGE: 73 SEX: M ATTEND: Lisa Layton MD ADM AUTHOR: Dakota Melgar MD REPT SERVICE DT/TIME: 03/03/24 1253 * ALL edits or amendments must be made on the electronic/computer document * Subjective Chief complaint: sob Patient reports: Yes: feeling better, resting comfortably, tolerating diet. No: congestion, cough, shortness of breath. Comments: Feels a bit better but still very edematous. Improving shortness of breath. ROS negative for f/c, n/v. Objective General VS/I O: Last Documented: Result Date Time Temp 98.7 03/03 0800 O2 Delivery Nasal cannula 03/03 0800 O2 Flow Rate 8 03/03 0800 Pulse Ox 100 03/03 0600 B/P 126/79 03/03 0600 B/P Mean 97 03/03 0600 Pulse 68 03/03 0600 Resp 22 03/03 0600 FiO2 40 03/02 2000 24 hour I O ending at 0700: 03/02 1900 03/03 0700 Intake Total 450 Output Total 950 Balance -950 450 Intake, Oral 450 Number 1 Bowel Movements Number Voids 3 Output, Urine 950 Patient 265 lb Weight Weight Bed scale Measurement Method PATIENT WEIGHT: Weight (lb): 264 Weight (oz): 8.88 Weight (kg): 120.000 Medications: Active Meds + DC'd Last 24 Hrs Insulin Glargine (Semglee) 25 UNITS Q12HR SUBQ Insulin Glargine (Semglee) 15 UNITS ONCE ONE SUBQ (DC) Glipizide (GLUCOTROL) 10 MG BID PO Insulin Glargine (Semglee) 10 UNITS Q12HR SUBQ (DC) Furosemide (LASIX 40MG INJ) 40 MG BID 9A 5P IV Aspirin (ASPIRIN 81MG CHEW) 81 MG DAILY PO Clopidogrel Bisulfate (PLAVIX) 75 MG DAILY PO Loratadine (CLARITIN) 10 MG DAILY PO Insulin Human Lispro (HumaLOG 100 UNITS/ML) 0 AC HS SUBQ Dextrose/Water (DEXTROSE 10%) 125 ML ASDIR PRN IV (CKD) Dextrose/Water (DEXTROSE 10%) 250 ML ASDIR PRN IV (CKD) Glucagon (GLUCAGON) 1 MG ASDIR PRN IM Atorvastatin Calcium (Lipitor) 80 MG DAILY@2100 PO Ceftriaxone Sodium (cefTRIAXone 1,000 MG VIAL) 1,000 MG Q24H IV Sodium Chloride (SODIUM CHLORIDE 0.9% 10ML) 10 ML Acetaminophen (TYLENOL 325MG) 650 MG Q4H PRN PRN PO Hydrocodone Bitart/Acetaminophen (NORCO 5/325 TABLET) 1 TAB Q4H PRN PRN PO Methylprednisolone Sodium Succinate (Solu-Medrol 40 MG Vial) 40 MG Q8HR IV Metoprolol Tartrate (LOPRESSOR) 25 MG Q12HR PO Enoxaparin Sodium (LOVENOX) 30 MG Q24H SUBQ Budesonide (PULMICORT) 0.5 MG RTQ12H NEB Formoterol Fumarate (PERFOROMIST) 20 MCG RTBID NEB Mupirocin (BACTROBAN 2% 22 GM OINT) 1 APPLIC BID NASAL Albuterol/Ipratropium (IPRATR-ALBUTEROL 0.5-3 MG/3 ML) 3 ML RTQ6H NEB Albuterol/Ipratropium (IPRATR-ALBUTEROL 0.5-3 MG/3 ML) 3 ML RTQ2H PRN PRN NEB Chlorphenir/Hydrocodone Polistirex (TUSSIONEX) 5 ML Q12H PRN PRN PO Sterile Water (WATER FOR INJECTION) 1 ML ASDIR PRN IV Dietitian nutrition assessment The data set between the solid lines has been imported from the dietitian's assessment. BMI Calculated: 42.7 Nutrition related diagnosis: Nutrition diagnosis details: Nutrition problem: Nutrition etiology: Nutrition signs and symptoms: Nutrition prescription: Dietitian name: Assessment completed: Physical Exam General appearance: alert, awake, no acute distress, pleasant, conversational Cardiovascular: normal S1/S2, regular rate rhythm, no murmur, no rub, no gallop Respiratory/chest: decreased breath sounds, on oxygen, rales Abdomen: soft, normal bowel sounds, no distention Extremities: edema, normal temperature, no clubbing Musculoskeletal: normal inspection, no muscle spasm Neuro/HAND STONER: alert, oriented X 3, CNII-XII intact, no motor deficits Skin: dry, stasis hyperpigmentation Lymphatics: neck normal, no lymphadenopathy Psychiatry: normal affect, normal mood Results Findings/Data: Laboratory Tests 03/03/24 0418: [Embedded Image Not Available] Laboratory Tests 03/02 03/02 03/03 03/03 1626 2100 0418 0726 Chemistry Sodium (134.0 - 147.0 mmol/l) 133 L Potassium (3.6 - 5.2 mmol/L) 4.9 Chloride (98.0 - 107.0 mmol/l) 94 L Carbon Dioxide (21.0 - 33.0 mmol/l) 35.0 H Anion Gap (0 - 20) 8.9 BUN (7.0 - 18.0 mg/dl) 44 H Creatinine (0.60 - 1.30 mg/dL) 1.48 H Estimated Creat Clear (>30 mL/min) 41 Glomerular Filtr Rate (mL/min) 50 Glucose (70.0 - 110.0 mg/dl) 271 H POC Glucose (70 - 110 mg/dL) 288 H 289 H 264 H Calcium (8.0 - 10.5 mg/dl) 8.9 Diagnosis, Assessment Plan Free Text A P: 1. Acute hypercapnic/hypoxemic respiratory failure on chronic hypoxemic respiratory failure O2 via high flow nasal cannula Wean to baseline of 6 L/min as tolerated Worsened related to pulmonary edema Continue diuresis as tolerated -> increase diuretic 2. CHF exacerbation significant fluid overload recent echo: EF 45-49% with grade 2 DD, moderately dilated RV and reduced RV systolic function increase IV Lasix cardiology following 3. DIANNE/OHS Patient reports having inconsistently using home CPAP Will continue to use BiPAP nightly and as needed while hospitalized 4. Acute kidney injury with chronic kidney disease? Continue to follow BUN and creatinine May improve with diuresis monitor electrolytes/renal function 5. Hypokalemia Replace as needed 6. Bacteremia contaminant? ID evaluation Orders: Procedure Date/time Status XR CHEST 1 V 03/04 0500 Active CBC W/O DIFF 03/04 0500 Active at 1423 RPT #:[id number] END OF REPORT [facility] 2024-03-03 09:27:00 [facility] ([facility] Cardiology Progress Note REPORT#:[id number] REPORT STATUS: Signed REPORT INITIALIZATION DATE:03/03/24 TIME: 926 PATIENT: WILLI MERRITT UNIT #: [id number] ROOM/BED: [facility] : 52 AGE: 73 SEX: M ATTEND: Lisa Layton MD ADM AUTHOR: Elizabeth David MD REPT SERVICE DT/TIME: 03/03/24926 * ALL edits or amendments must be made on the electronic/computer document * Subjective Chief complaint: overall appears better. Still has shortness of breath Objective General VS/I O: 24 hour I O ending at 0700: 03/03 0700 03/02 1900 Intake Total 450 Output Total 950 Balance 450 -950 Intake, Oral 450 Number 1 Bowel Movements Number Voids 3 Output, Urine 950 Patient 120 kg Weight Weight Bed scale Measurement Method Vital Signs: Date Time Temp Pulse Resp B/P B/P Pulse O2 O2 Flow FiO2 Mean Ox Delivery Rate 03/03 0600 68 22 126/79 97 100 03/03 0500 64 14 140/77 103 100 03/03 0401 64 19 133/72 94 99 03/03 0400 97.6 64 19 133/72 92 99 Non 15 rebreather mask 03/03 0300 63 15 127/70 93 100 03/03 0201 63 23 141/83 108 100 03/03 0101 62 23 135/73 100 100 03/03 0000 98.1 62 18 144/74 97 100 Nasal 8 cannula 03/03 0000 62 18 144/74 101 100 03/02 2300 66 21 138/77 102 100 03/02 2237 71 25 134/72 98 100 03/02 2212 98 Nasal 11 cannula 03/02 2100 70 25 148/75 103 91 03/02 2000 97.6 73 22 129/74 92 98 BiPAP 40 03/02 2000 73 22 129/74 96 98 03/02 1957 Nasal 8 cannula 03/02 1933 71 31 116/61 81 89 03/02 1800 75 26 116/57 81 99 03/02 1753 75 27 98 03/02 1700 79 35 86 03/02 1600 97.0 03/02 1600 74 23 133/62 89 95 03/02 1500 74 27 133/69 93 82 03/02 1401 70 28 135/70 95 98 03/02 1400 70 26 96 03/02 1303 68 27 132/65 92 98 03/02 1301 68 20 82/52 63 100 03/02 1200 98.9 03/02 1200 80 24 140/78 103 84 03/02 1100 60 25 135/62 89 88 03/02 1000 64 35 124/65 89 69 PATIENT WEIGHT: Weight (lb): 264 Weight (oz): 8.88 Weight (kg): 120.000 Medications: Active Meds + DC'd Last 24 Hrs Glipizide (GLUCOTROL) 10 MG BID PO Insulin Glargine (Semglee) 10 UNITS Q12HR SUBQ Furosemide (LASIX 40MG INJ) 40 MG BID 9A 5P IV Aspirin (ASPIRIN 81MG CHEW) 81 MG DAILY PO Clopidogrel Bisulfate (PLAVIX) 75 MG DAILY PO Loratadine (CLARITIN) 10 MG DAILY PO Insulin Human Lispro (HumaLOG 100 UNITS/ML) 0 AC HS SUBQ Dextrose/Water (DEXTROSE 10%) 125 ML ASDIR PRN IV (CKD) Dextrose/Water (DEXTROSE 10%) 250 ML ASDIR PRN IV (CKD) Glucagon (GLUCAGON) 1 MG ASDIR PRN IM Atorvastatin Calcium (Lipitor) 80 MG DAILY@2100 PO Ceftriaxone Sodium (cefTRIAXone 1,000 MG VIAL) 1,000 MG Q24H IV Sodium Chloride (SODIUM CHLORIDE 0.9% 10ML) 10 ML Acetaminophen (TYLENOL 325MG) 650 MG Q4H PRN PRN PO Hydrocodone Bitart/Acetaminophen (NORCO 5/325 TABLET) 1 TAB Q4H PRN PRN PO Methylprednisolone Sodium Succinate (Solu-Medrol 40 MG Vial) 40 MG Q8HR IV Metoprolol Tartrate (LOPRESSOR) 25 MG Q12HR PO Enoxaparin Sodium (LOVENOX) 30 MG Q24H SUBQ Budesonide (PULMICORT) 0.5 MG RTQ12H NEB Formoterol Fumarate (PERFOROMIST) 20 MCG RTBID NEB Mupirocin (BACTROBAN 2% 22 GM OINT) 1 APPLIC BID NASAL Albuterol/Ipratropium (IPRATR-ALBUTEROL 0.5-3 MG/3 ML) 3 ML RTQ6H NEB Albuterol/Ipratropium (IPRATR-ALBUTEROL 0.5-3 MG/3 ML) 3 ML RTQ2H PRN PRN NEB Chlorphenir/Hydrocodone Polistirex (TUSSIONEX) 5 ML Q12H PRN PRN PO Sterile Water (WATER FOR INJECTION) 1 ML ASDIR PRN IV Physical Exam General appearance: alert, awake Head/Eyes: atraumatic ENT: moist mucosal membranes Neck: non-tender Cardiovascular: CV assessment: regular rate and rhythm Respiratory: decreased breath sounds, rales Abdomen: soft, non-tender Lower extremity: LE assessment: edema Diagnosis, Assessment Plan Hospital course to date: Echocardiogram done on 02/24/2024 showed EF about 45% to 50%. Right ventricular systolic function is also reduced. ASSESSMENT AND PLAN: A 73-year-old male patient with history of coronary artery disease, chronic systolic heart failure, hypertension, comes with acute respiratory failure. 1. Acute respiratory failure. Continue BiPAP as per Primary Service and Pulmonary Critical Care. 2. Acute on chronic systolic heart failure. Continue home medicine. We will resume her home medicine and follow up. Keep him on fluid restricted diet. Continue Lasix to 40 mg IV bid 3. Coronary artery disease, mild troponin elevation consistent with type 2 myocardial infarction, especially given hypoxia. Plan: We will continue to monitor closely. Further workup can be done at a later date, possibly as an outpatient. 4. Hypertension. Continue home medications. 5. Diabetes mellitus. Continue as per primary service. Will continue to follow. at 0928 RPT #:[id number] END OF REPORT [facility] 2024-03-03 07:34:00 [facility] ([facility] Hospitalist Progress Note REPORT#:[id number] REPORT STATUS: Signed REPORT INITIALIZATION DATE:03/03/24 TIME: 733 PATIENT: WILLI MERRITT UNIT #: [id number] ROOM/BED: [place] [address] : 52 AGE: 73 SEX: M ATTEND: Lisa Layton MD ADM AUTHOR: Tricia Schofield MD REPT SERVICE DT/TIME: 03/03/24 0734 * ALL edits or amendments must be made on the electronic/computer document * Subjective Chief complaint: Awake and alert On nasal cannula and 15 L nonrebreather Used BiPAP in the night In the ICU Good urine output Good p.o. intake Review of Systems Constitutional: Denies: fever. Respiratory: Reports: SOB. Denies: productive cough (sputum). Cardiovascular: Denies: chest pain. GI: Denies: nausea, vomiting. Objective General VS/I O: Laboratory Tests 03/03/24 0418: [Embedded Image Not Available] 03/02/24 0409: [Embedded Image Not Available] Active Meds + DC'd Last 24 Hrs Glipizide (GLUCOTROL) 10 MG BID PO Insulin Glargine (Semglee) 25 UNITS Q12HR SUBQ (DC) Insulin Glargine (Semglee) 10 UNITS Q12HR SUBQ Insulin Human Lispro (HumaLOG 100 UNITS/ML) 16 UNITS AC BK SUBQ (DC) Furosemide (LASIX 40MG INJ) 40 MG BID 9A 5P IV Aspirin (ASPIRIN 81MG CHEW) 81 MG DAILY PO Clopidogrel Bisulfate (PLAVIX) 75 MG DAILY PO Loratadine (CLARITIN) 10 MG DAILY PO Insulin Human Lispro (HumaLOG 100 UNITS/ML) 0 AC HS SUBQ Dextrose/Water (DEXTROSE 10%) 125 ML ASDIR PRN IV (CKD) Dextrose/Water (DEXTROSE 10%) 250 ML ASDIR PRN IV (CKD) Glucagon (GLUCAGON) 1 MG ASDIR PRN IM Atorvastatin Calcium (Lipitor) 80 MG DAILY@2100 PO Ceftriaxone Sodium (cefTRIAXone 1,000 MG VIAL) 1,000 MG Q24H IV Sodium Chloride (SODIUM CHLORIDE 0.9% 10ML) 10 ML Acetaminophen (TYLENOL 325MG) 650 MG Q4H PRN PRN PO Hydrocodone Bitart/Acetaminophen (NORCO 5/325 TABLET) 1 TAB Q4H PRN PRN PO Methylprednisolone Sodium Succinate (Solu-Medrol 40 MG Vial) 40 MG Q8HR IV Metoprolol Tartrate (LOPRESSOR) 25 MG Q12HR PO Enoxaparin Sodium (LOVENOX) 30 MG Q24H SUBQ Budesonide (PULMICORT) 0.5 MG RTQ12H NEB Formoterol Fumarate (PERFOROMIST) 20 MCG RTBID NEB Mupirocin (BACTROBAN 2% 22 GM OINT) 1 APPLIC BID NASAL Albuterol/Ipratropium (IPRATR-ALBUTEROL 0.5-3 MG/3 ML) 3 ML RTQ6H NEB Albuterol/Ipratropium (IPRATR-ALBUTEROL 0.5-3 MG/3 ML) 3 ML RTQ2H PRN PRN NEB Chlorphenir/Hydrocodone Polistirex (TUSSIONEX) 5 ML Q12H PRN PRN PO Sterile Water (WATER FOR INJECTION) 1 ML ASDIR PRN IV Microbiology Date/Time Procedure - Status Source Growth 03/02 1010 Blood Culture - RECD BLOOD 03/02 1010 Blood Culture - RECD BLOOD 03/02 1000 Blood Culture - RECD BLOOD 03/02 1000 Blood Culture - RECD BLOOD Vital Signs: Date Time Temp Pulse Resp B/P B/P Pulse O2 O2 Flow FiO2 Mean Ox Delivery Rate 03/03 0600 68 22 126/79 97 100 03/03 0500 64 14 140/77 103 100 03/03 0401 64 19 133/72 94 99 03/03 0400 97.6 64 19 133/72 92 99 Non 15 rebreather mask 03/03 0300 63 15 127/70 93 100 03/03 0201 63 23 141/83 108 100 03/03 0101 62 23 135/73 100 100 03/03 0000 98.1 62 18 144/74 97 100 Nasal 8 cannula 03/03 0000 62 18 144/74 101 100 03/02 2300 66 21 138/77 102 100 03/02 2237 71 25 134/72 98 100 03/02 2212 98 Nasal 11 cannula 03/02 2100 70 25 148/75 103 91 03/02 2000 97.6 73 22 129/74 92 98 BiPAP 40 03/02 2000 73 22 129/74 96 98 03/02 1957 Nasal 8 cannula 03/02 1933 71 31 116/61 81 89 03/02 1800 75 26 116/57 81 99 03/02 1753 75 27 98 03/02 1700 79 35 86 03/02 1600 97.0 03/02 1600 74 23 133/62 89 95 03/02 1500 74 27 133/69 93 82 03/02 1401 70 28 135/70 95 98 03/02 1400 70 26 96 03/02 1303 68 27 132/65 92 98 03/02 1301 68 20 82/52 63 100 03/02 1200 98.9 03/02 1200 80 24 140/78 103 84 03/02 1100 60 25 135/62 89 88 03/02 1000 64 35 124/65 89 69 03/02 0900 74 23 121/58 83 90 03/02 0800 97.5 03/02 0800 BiPAP 100 03/02 0800 60 18 107/59 77 88 24 hour I O ending at 0700: 03/03 0700 03/02 1900 Intake Total 450 Output Total 950 Balance 450 -950 Intake, Oral 450 Number 1 Bowel Movements Number Voids 3 Output, Urine 950 Patient 120 kg Weight Weight Bed scale Measurement Method PATIENT WEIGHT: Weight (lb): 264 Weight (oz): 8.88 Weight (kg): 120.000 Free Text Obj Notes Free Text Obj Notes: PHYSICAL EXAMINATION: General appearance: alert , on nonrebreather and nasal cannula oxygen, no acute distress, obese Head/Eyes: atraumatic, face is symmetric Neck: supple, no masses or swelling Cardiovascular: regular rate rhythm, normal heart sounds Respiratory: Decreased breath sounds bilaterally, no distress Abdomen/GI: active bowel sounds, soft, non-tender, obese Extremities: moves all, PIO LE edema, no cyanosis Neuro/HAND STONER: alert OX3, no focal deficits Skin: dry, intact Psychiatry: mood appropriate Diagnosis, Assessment Plan Free Text DxA P Notes Free text DxA P notes: Acute on chronic hypoxic and hypercapnic respiratory failure On BiPAP Pulmonology follow-up Steroids Solu-Medrol , duonebs Acute on chronic systolic heart failure IV diuresis Cardiology consultation Echocardiogram EF 35 to 39% April 2023 -- 45-49% February 2024; grade 2 diastolic dysfunction Lactic acidosis Follow cultures -- blood cx coag neg staph in 4 -- repeat Continue antibiotics Elevated troponins --like;y type 2 MA H/O disease, cardiac stents cardiology consulted ASA, plavix, statin, beta lisa CKD stage III -- Cr -- 1.4 . 1.7 Pulmonary nodules right upper and lower lobes similar to April 2023 Diabetes mellitus type 2 A1c, SSI, home medications --glipizide and aspart ; schedule Lantus Hypertension blood pressure controlled Morbid obesity BMI 41 --OHS/DIANNE Uses CPAP inconsistently at home Needs lifestyle modification with diet and exercise Dyslipidemia DVT prophylaxis Lovenox -- more alert -- monitor blood sugars -- wean BIPAP -- continue diuresis 03/03/24 --- Acute on chronic hypoxic and hypercapnic respiratory failure, pulmonary edema BiPAP, nasal cannula oxygen, nonrebreather--wean as tolerated pulmonology follow-up --- steroids, DuoNebs --- Acute on chronic systolic heart failure IV diuresis cardiology follow-up Elevated troponins type II MA --- Bacteremia repeat cultures consult ID ; leukocytosis --- CKD stage III creatinine stable 1.4 ; hyponatremia --- Pulmonary nodules -stable pulmonology follow-up --- Diabetes mellitus type 2 increase Lantus; A1c 7.9 --- Morbid obesity BMI 42 OHS, DIANNE needs lifestyle modification --- Dyslipidemia --- DVT prophylaxis Lovenox Wean oxygen as tolerated Increase Lantus monitor blood sugars at 1303 RPT #:[id number] END OF REPORT [facility] 2024-03-02 17:51:00 [facility] ([facility]) Pulmonology Progress Note REPORT#:[id number] REPORT STATUS: Signed REPORT INITIALIZATION DATE:03/02/24 TIME: 1750 PATIENT: WILLI MERRITT UNIT #: [id number] ROOM/BED: [place] [address] : 52 AGE: 73 SEX: M ATTEND: Lisa Layton MD ADM AUTHOR: Dakota Melgar MD REPT SERVICE DT/TIME: 03/02/241750 * ALL edits or amendments must be made on the electronic/computer document * Subjective Chief complaint: sob Patient reports: Yes: feeling better, resting comfortably. No: congestion, cough. Comments: Awake and alert. Sitting up edge of bed eating lunch at my visit. RN reports no new problems. Objective General VS/I O: Last Documented: Result Date Time Temp 97.0 03/02 1600 FiO2 100 03/02 0800 O2 Delivery BiPAP 03/02 0800 Pulse Ox 93 03/02 0714 Pulse 60 03/02 0714 B/P 132/69 03/02 0601 B/P Mean 95 03/02 0601 Resp 30 03/02 0601 O2 Flow Rate 8 03/01 2000 24 hour I O ending at 0700: 03/01 1900 03/02 0700 Intake Total 800 520 Output Total 750 1250 Balance 50 -730 Intake, Oral 800 520 Number 1 1 Bowel Movements Number Voids 3 Output, Stool 0 Output, Urine 750 1250 PATIENT WEIGHT: Weight (lb): 258 Weight (oz): 6.11 Weight (kg): 117.200 Medications: Active Meds + DC'd Last 24 Hrs Glipizide (GLUCOTROL) 10 MG BID PO Insulin Glargine (Semglee) 25 UNITS Q12HR SUBQ (DC) Insulin Glargine (Semglee) 10 UNITS Q12HR SUBQ Insulin Human Lispro (HumaLOG 100 UNITS/ML) 16 UNITS AC BK SUBQ (DC) Insulin Human Lispro (HumaLOG 100 UNITS/ML) 10 UNITS ONCE ONE SUBQ (DC) Furosemide (LASIX 40MG INJ) 40 MG BID 9A 5P IV Aspirin (ASPIRIN 81MG CHEW) 81 MG DAILY PO Clopidogrel Bisulfate (PLAVIX) 75 MG DAILY PO Loratadine (CLARITIN) 10 MG DAILY PO Insulin Human Lispro (HumaLOG 100 UNITS/ML) 0 AC HS SUBQ Dextrose/Water (DEXTROSE 10%) 125 ML ASDIR PRN IV (CKD) Dextrose/Water (DEXTROSE 10%) 250 ML ASDIR PRN IV (CKD) Glucagon (GLUCAGON) 1 MG ASDIR PRN IM Atorvastatin Calcium (Lipitor) 80 MG DAILY@2100 PO Ceftriaxone Sodium (cefTRIAXone 1,000 MG VIAL) 1,000 MG Q24H IV Sodium Chloride (SODIUM CHLORIDE 0.9% 10ML) 10 ML Acetaminophen (TYLENOL 325MG) 650 MG Q4H PRN PRN PO Hydrocodone Bitart/Acetaminophen (NORCO 5/325 TABLET) 1 TAB Q4H PRN PRN PO Methylprednisolone Sodium Succinate (Solu-Medrol 40 MG Vial) 40 MG Q8HR IV Metoprolol Tartrate (LOPRESSOR) 25 MG Q12HR PO Enoxaparin Sodium (LOVENOX) 30 MG Q24H SUBQ Budesonide (PULMICORT) 0.5 MG RTQ12H NEB Formoterol Fumarate (PERFOROMIST) 20 MCG RTBID NEB Mupirocin (BACTROBAN 2% 22 GM OINT) 1 APPLIC BID NASAL Albuterol/Ipratropium (IPRATR-ALBUTEROL 0.5-3 MG/3 ML) 3 ML RTQ6H NEB Albuterol/Ipratropium (IPRATR-ALBUTEROL 0.5-3 MG/3 ML) 3 ML RTQ2H PRN PRN NEB Chlorphenir/Hydrocodone Polistirex (TUSSIONEX) 5 ML Q12H PRN PRN PO Sterile Water (WATER FOR INJECTION) 1 ML ASDIR PRN IV Dietitian nutrition assessment The data set between the solid lines has been imported from the dietitian's assessment. BMI Calculated: 41.7 Nutrition related diagnosis: Nutrition diagnosis details: Nutrition problem: Nutrition etiology: Nutrition signs and symptoms: Nutrition prescription: Dietitian name: Assessment completed: Physical Exam General appearance: respiratory support, alert, awake, no acute distress, pleasant, conversational Cardiovascular: normal S1/S2, regular rate rhythm, no murmur, no rub, no gallop Respiratory/chest: decreased breath sounds, on oxygen, rales Abdomen: soft, normal bowel sounds, no distention Extremities: edema, normal temperature, no clubbing Musculoskeletal: normal inspection, no muscle spasm Neuro/HAND STONER: alert, oriented X 3, CNII-XII intact, no motor deficits Skin: dry, stasis hyperpigmentation Lymphatics: neck normal, no lymphadenopathy Psychiatry: normal affect, normal mood Results Findings/Data: Laboratory Tests 03/02/24 0409: [Embedded Image Not Available] Laboratory Tests 03/01 03/01 03/02 03/02 03/02 2116 2345 0409 0802 1136 Chemistry Sodium (134.0 - 147.0 mmol/l) 134 Potassium (3.6 - 5.2 mmol/L) 4.7 Chloride (98.0 - 107.0 mmol/l) 94 L Carbon Dioxide (21.0 - 33.0 mmol/l) 36.7 H Anion Gap (0 - 20) 8.0 BUN (7.0 - 18.0 mg/dl) 39 H Creatinine (0.60 - 1.30 mg/dL) 1.43 H Estimated Creat Clear (>30 mL/min) 43 Glomerular Filtr Rate (mL/min) 52 Glucose (70.0 - 110.0 mg/dl) 138 H POC Glucose (70 - 110 mg/dL) 514 *H 317 H 173 H 201 H Calcium (8.0 - 10.5 mg/dl) 8.6 Magnesium (1.8 - 2.4 mg/dl) 2.2 03/02 1626 Chemistry POC Glucose (70 - 110 mg/dL) 288 H Laboratory Tests 03/02 0409 Hematology WBC (4.5 - 11.0 K/mm3) 15.0 H RBC (4.40 - 5.90 M/mm3) 3.60 L Hgb (13.0 - 17.0 gm/dL) 10.1 L Hct (36.0 - 48.0 %) 34.3 L MCV (80.0 - 94.0 UM3) 95.3 H MCH (25.5 - 32.5 UUG) 28.1 MCHC (29.0 - 35.5 gm/dL) 29.4 RDW (11.5 - 15.0 %) 19.7 H Plt Count (150 - 400 K/mm3) 188 MPV (7.4 - 10.4 fl) 12.4 H Neut % (Auto) (49.0 - 76.0 %) 91.5 H Lymph % (Auto) (23.0 - 38.0 %) 2.4 L [place] % (Auto) (1.0 - 10.0 %) 4.9 Eos % (Auto) (1.0 - 5.0 %) 0.0 L Baso % (Auto) (0.0 - 1.0 %) 0.2 Neut # (Auto) (2.4 - 6.3 K/mm3) 13.8 H Lymph # (Auto) (1.2 - 4.0 K/mm3) 0.4 L [place] # (Auto) (0.0 - 0.6 K/mm3) 0.7 H Eos # (Auto) (0.0 - 0.7 K/MM3) 0.0 Baso # (Auto) (0.0 - 0.2 K/mm3) 0.0 Absolute Nucleated RBC (0.00 - 0.01 X10 3uL) 0.00 Immature Gran % (0.0 - 0.4 %) 1.0 H Nucleated RBC % (0.0 - 0.1 %) 0.0 Immature Gran # (0.00 - 0.07 x10 3/uL) 0.15 H Diagnosis, Assessment Plan Free Text A P: 1. Acute hypercapnic/hypoxemic respiratory failure on chronic hypoxemic respiratory failure O2 via high flow nasal cannula Wean to baseline of 6 L/min as tolerated Worsened related to pulmonary edema remains hypoxic but has 10L concentrator and he is demanding discharge Continue diuresis as tolerated 2. CHF exacerbation significant fluid overload recent echo: EF 45-49% with grade 2 DD, moderately dilated RV and reduced RV systolic function cont IV Lasix cardiology following 3. DIANNE/OHS Patient reports having inconsistently using home CPAP Will continue to use BiPAP nightly and as needed while hospitalized 4. Acute kidney injury with chronic kidney disease? Continue to follow BUN and creatinine May improve with diuresis 5. Hypokalemia Replace as needed at 1753 RPT #:[id number] END OF REPORT [facility] 2024-03-02 12:27:00 [facility] Hospitalist Progress Note REPORT#:[id number] REPORT STATUS: Signed REPORT INITIALIZATION DATE:03/02/24 TIME: 1226 PATIENT: WILLI MERRITT UNIT #: [id number] ROOM/BED: [place] [address] : 52 AGE: 73 SEX: M ATTEND: Lisa Layton MD ADM AUTHOR: Lisa Layton MD REPT SERVICE DT/TIME: 03/02/24 122 * ALL edits or amendments must be made on the electronic/computer document * Subjective Chief complaint: mentaiton baseline on phone eating 14 point ROS negative unless stated Objective General VS/I O: Vital Signs: Date Time Temp Pulse Resp B/P B/P Pulse O2 O2 Flow FiO2 Mean Ox Delivery Rate 03/02 1200 37.2 03/02 0800 36.4 03/02 0800 BiPAP 100 03/02 0714 60 93 100 03/02 0714 93 100 03/02 0601 60 30 132/69 95 03/02 0500 60 19 128/84 102 96 03/02 0409 60 97 40 03/02 0400 36.7 60 21 116/67 83 97 BiPAP 40 03/02 0400 60 21 116/67 86 92 03/02 0301 66 47 85/46 61 82 03/02 0200 60 15 105/56 72 97 03/02 0116 68 28 109/55 73 100 03/02 0000 36.4 73 16 128/72 90 99 BiPAP 40 03/02 0000 73 16 128/72 92 99 03/01 2301 74 24 131/51 71 98 03/018 75 100 40 03/01 2201 76 28 134/54 78 98 03/01 2101 81 32 134/87 104 91 03/01 2000 36.4 81 31 120/70 86 94 Nasal 8 cannula 03/01 2000 81 31 120/70 89 86 03/01 1953 Nasal 8 cannula 03/01 1930 75 26 94 03/014 94 Nasal 8 cannula 03/01 1900 71 30 115/63 79 92 03/01 1700 80 25 116/84 95 93 24 hour I O ending at 0700: 03/02 0700 03/01 1900 Intake Total 520 800 Output Total 1250 750 Balance -730 50 Intake, Oral 520 800 Number 1 1 Bowel Movements Number Voids 3 Output, Stool 0 Output, Urine 1250 750 PATIENT WEIGHT: Weight (lb): 258 Weight (oz): 6.11 Weight (kg): 117.200 Medications: Active Meds + DC'd Last 24 Hrs Glipizide (GLUCOTROL) 10 MG BID PO Insulin Glargine (Semglee) 25 UNITS Q12HR SUBQ (DC) Insulin Glargine (Semglee) 10 UNITS Q12HR SUBQ Insulin Human Lispro (HumaLOG 100 UNITS/ML) 16 UNITS AC BK SUBQ (DC) Insulin Human Lispro (HumaLOG 100 UNITS/ML) 10 UNITS ONCE ONE SUBQ (DC) Furosemide (LASIX 40MG INJ) 40 MG BID 9A 5P IV Aspirin (ASPIRIN 81MG CHEW) 81 MG DAILY PO Clopidogrel Bisulfate (PLAVIX) 75 MG DAILY PO Loratadine (CLARITIN) 10 MG DAILY PO Insulin Human Lispro (HumaLOG 100 UNITS/ML) 0 AC HS SUBQ Dextrose/Water (DEXTROSE 10%) 125 ML ASDIR PRN IV (CKD) Dextrose/Water (DEXTROSE 10%) 250 ML ASDIR PRN IV (CKD) Glucagon (GLUCAGON) 1 MG ASDIR PRN IM Atorvastatin Calcium (Lipitor) 80 MG DAILY@2100 PO Ceftriaxone Sodium (cefTRIAXone 1,000 MG VIAL) 1,000 MG Q24H IV Sodium Chloride (SODIUM CHLORIDE 0.9% 10ML) 10 ML Acetaminophen (TYLENOL 325MG) 650 MG Q4H PRN PRN PO Hydrocodone Bitart/Acetaminophen (NORCO 5/325 TABLET) 1 TAB Q4H PRN PRN PO Methylprednisolone Sodium Succinate (Solu-Medrol 40 MG Vial) 40 MG Q8HR IV Metoprolol Tartrate (LOPRESSOR) 25 MG Q12HR PO Enoxaparin Sodium (LOVENOX) 30 MG Q24H SUBQ Budesonide (PULMICORT) 0.5 MG RTQ12H NEB Formoterol Fumarate (PERFOROMIST) 20 MCG RTBID NEB Mupirocin (BACTROBAN 2% 22 GM OINT) 1 APPLIC BID NASAL Albuterol/Ipratropium (IPRATR-ALBUTEROL 0.5-3 MG/3 ML) 3 ML RTQ6H NEB Albuterol/Ipratropium (IPRATR-ALBUTEROL 0.5-3 MG/3 ML) 3 ML RTQ2H PRN PRN NEB Chlorphenir/Hydrocodone Polistirex (TUSSIONEX) 5 ML Q12H PRN PRN PO Sterile Water (WATER FOR INJECTION) 1 ML ASDIR PRN IV Dietitian nutrition assessment The data set between the solid lines has been imported from the dietitian's assessment. BMI Calculated: 41.7 Nutrition related diagnosis: Nutrition diagnosis details: Nutrition problem: Nutrition etiology: Nutrition signs and symptoms: Nutrition prescription: Dietitian name: Assessment completed: Results Findings/Data: Laboratory Tests 03/02 03/02 03/02 03/01 03/01 1136 0802 5041 0404 2391 Chemistry Sodium (134.0 - 147.0 mmol/l) 134 Potassium (3.6 - 5.2 mmol/L) 4.7 Chloride (98.0 - 107.0 mmol/l) 94 L Carbon Dioxide (21.0 - 33.0 mmol/l) 36.7 H Anion Gap (0 - 20) 8.0 BUN (7.0 - 18.0 mg/dl) 39 H Creatinine (0.60 - 1.30 mg/dL) 1.43 H Estimated Creat Clear (>30 mL/min) 43 Glomerular Filtr Rate (mL/min) 52 Glucose (70.0 - 110.0 mg/dl) 138 H POC Glucose (70 - 110 mg/dL) 201 H 173 H 317 H 514 *H Calcium (8.0 - 10.5 mg/dl) 8.6 Magnesium (1.8 - 2.4 mg/dl) 2.2 Laboratory Tests 03/02 0409 Hematology WBC (4.5 - 11.0 K/mm3) 15.0 H RBC (4.40 - 5.90 M/mm3) 3.60 L Hgb (13.0 - 17.0 gm/dL) 10.1 L Hct (36.0 - 48.0 %) 34.3 L MCV (80.0 - 94.0 UM3) 95.3 H MCH (25.5 - 32.5 UUG) 28.1 MCHC (29.0 - 35.5 gm/dL) 29.4 RDW (11.5 - 15.0 %) 19.7 H Plt Count (150 - 400 K/mm3) 188 MPV (7.4 - 10.4 fl) 12.4 H Neut % (Auto) (49.0 - 76.0 %) 91.5 H Lymph % (Auto) (23.0 - 38.0 %) 2.4 L [place] % (Auto) (1.0 - 10.0 %) 4.9 Eos % (Auto) (1.0 - 5.0 %) 0.0 L Baso % (Auto) (0.0 - 1.0 %) 0.2 Neut # (Auto) (2.4 - 6.3 K/mm3) 13.8 H Lymph # (Auto) (1.2 - 4.0 K/mm3) 0.4 L [place] # (Auto) (0.0 - 0.6 K/mm3) 0.7 H Eos # (Auto) (0.0 - 0.7 K/MM3) 0.0 Baso # (Auto) (0.0 - 0.2 K/mm3) 0.0 Absolute Nucleated RBC (0.00 - 0.01 X10 3uL) 0.00 Immature Gran % (0.0 - 0.4 %) 1.0 H Nucleated RBC % (0.0 - 0.1 %) 0.0 Immature Gran # (0.00 - 0.07 x10 3/uL) 0.15 H Free Text Obj Notes Free Text Obj Notes: PHYSICAL EXAMINATION: General appearance: alert , on BiPAP no acute distress, obese Head/Eyes: atraumatic, face is symmetric Neck: supple, no masses or swelling Cardiovascular: regular rate rhythm, normal heart sounds Respiratory: Decreased breath sounds bilaterally, no distress Abdomen/GI: active bowel sounds, soft, non-tender, obese Extremities: moves all, PIO LE edema, no cyanosis Neuro/HAND STONER: alert OX3, no focal deficits Skin: dry, intact Psychiatry: mood appropriate Diagnosis, Assessment Plan Free Text DxA P Notes Free text DxA P notes: Acute on chronic hypoxic and hypercapnic respiratory failure On BiPAP Pulmonology follow-up Steroids Solu-Medrol , duonebs Acute on chronic systolic heart failure IV diuresis Cardiology consultation Echocardiogram EF 35 to 39% April 2023 -- 45-49% February 2024; grade 2 diastolic dysfunction Lactic acidosis Follow cultures -- blood cx coag neg staph in 4 -- repeat Continue antibiotics Elevated troponins --like;y type 2 MA H/O disease, cardiac stents cardiology consulted ASA, plavix, statin, beta lisa CKD stage III -- Cr -- 1.4 . 1.7 Pulmonary nodules right upper and lower lobes similar to April 2023 Diabetes mellitus type 2 A1c, SSI, home medications --glipizide and aspart ; schedule Lantus Hypertension blood pressure controlled Morbid obesity BMI 41 --OHS/DIANNE Uses CPAP inconsistently at home Needs lifestyle modification with diet and exercise Dyslipidemia DVT prophylaxis Lovenox -- more alert -- monitor blood sugars -- wean BIPAP -- continue diuresis at 1611 RPT #:[id number] END OF REPORT [facility] 2024-03-02 10:05:00 [facility] ([facility]) Cardiology Progress Note REPORT#:[id number] REPORT STATUS: Signed REPORT INITIALIZATION DATE:03/02/24 TIME: 1005 PATIENT: WILLI MERRITT UNIT #: [id number] ROOM/BED: [place] [address] : 52 AGE: 73 SEX: M ATTEND: Lisa Layton MD ADM AUTHOR: Elizabeth David MD REPT SERVICE DT/TIME: 03/02/24 1005 * ALL edits or amendments must be made on the electronic/computer document * Subjective Chief complaint: overall appears better. Still has shortness of breath Objective General VS/I O: 24 hour I O ending at 0700: 03/02 0700 03/01 1900 Intake Total 520 800 Output Total 1250 750 Balance -730 50 Intake, Oral 520 800 Number 1 1 Bowel Movements Number Voids 3 Output, Stool 0 Output, Urine 1250 750 Vital Signs: Date Time Temp Pulse Resp B/P B/P Pulse O2 O2 Flow FiO2 Mean Ox Delivery Rate 03/02 0800 97.5 03/02 0800 BiPAP 100 03/02 0714 60 93 100 03/02 0714 93 100 03/02 0601 60 30 132/69 95 03/02 0500 60 19 128/84 102 96 03/02 0409 60 97 40 03/02 0400 98.0 60 21 116/67 83 97 BiPAP 40 03/02 0400 60 21 116/67 86 92 03/02 0301 66 47 85/46 61 82 03/02 0200 60 15 105/56 72 97 03/02 0116 68 28 109/55 73 100 03/02 0000 97.6 73 16 128/72 90 99 BiPAP 40 03/02 0000 73 16 128/72 92 99 03/01 2301 74 24 131/51 71 98 03/01 2258 75 100 40 03/01 2201 76 28 134/54 78 98 03/01 2101 81 32 134/87 104 91 03/01 2000 97.6 81 31 120/70 86 94 Nasal 8 cannula 03/01 2000 81 31 120/70 89 86 03/01 1953 Nasal 8 cannula 03/01 1930 75 26 94 03/01 190 94 Nasal 8 cannula 03/01 1900 71 30 115/63 79 92 03/01 1700 80 25 116/84 95 93 03/01 1601 67 19 114/56 77 91 03/01 1500 66 137/72 98 95 03/01 1400 70 140/75 101 99 03/01 1317 98.4 03/01 1316 76 96 03/01 1304 BiPAP 40 03/01 1300 79 18 136/73 98 90 03/01 1200 73 19 131/73 96 99 03/01 1100 78 29 124/67 89 PATIENT WEIGHT: Weight (lb): 258 Weight (oz): 6.11 Weight (kg): 117.200 Medications: Active Meds + DC'd Last 24 Hrs Glipizide (GLUCOTROL) 10 MG BID PO Insulin Glargine (Semglee) 25 UNITS Q12HR SUBQ (DC) Insulin Glargine (Semglee) 10 UNITS Q12HR SUBQ Insulin Human Lispro (HumaLOG 100 UNITS/ML) 16 UNITS AC BK SUBQ (DC) Insulin Human Lispro (HumaLOG 100 UNITS/ML) 10 UNITS ONCE ONE SUBQ (DC) Furosemide (LASIX 40MG INJ) 40 MG BID 9A 5P IV Aspirin (ASPIRIN 81MG CHEW) 81 MG DAILY PO Clopidogrel Bisulfate (PLAVIX) 75 MG DAILY PO Loratadine (CLARITIN) 10 MG DAILY PO Insulin Human Lispro (HumaLOG 100 UNITS/ML) 0 AC HS SUBQ Dextrose/Water (DEXTROSE 10%) 125 ML ASDIR PRN IV (CKD) Dextrose/Water (DEXTROSE 10%) 250 ML ASDIR PRN IV (CKD) Glucagon (GLUCAGON) 1 MG ASDIR PRN IM Atorvastatin Calcium (Lipitor) 80 MG DAILY@2100 PO Ceftriaxone Sodium (cefTRIAXone 1,000 MG VIAL) 1,000 MG Q24H IV Sodium Chloride (SODIUM CHLORIDE 0.9% 10ML) 10 ML Acetaminophen (TYLENOL 325MG) 650 MG Q4H PRN PRN PO Hydrocodone Bitart/Acetaminophen (NORCO 5/325 TABLET) 1 TAB Q4H PRN PRN PO Methylprednisolone Sodium Succinate (Solu-Medrol 40 MG Vial) 40 MG Q8HR IV Furosemide (LASIX 20MG INJ) 20 MG BID 9A 5P IV (DC) Metoprolol Tartrate (LOPRESSOR) 25 MG Q12HR PO Enoxaparin Sodium (LOVENOX) 30 MG Q24H SUBQ Budesonide (PULMICORT) 0.5 MG RTQ12H NEB Formoterol Fumarate (PERFOROMIST) 20 MCG RTBID NEB Mupirocin (BACTROBAN 2% 22 GM OINT) 1 APPLIC BID NASAL Albuterol/Ipratropium (IPRATR-ALBUTEROL 0.5-3 MG/3 ML) 3 ML RTQ6H NEB Albuterol/Ipratropium (IPRATR-ALBUTEROL 0.5-3 MG/3 ML) 3 ML RTQ2H PRN PRN NEB Chlorphenir/Hydrocodone Polistirex (TUSSIONEX) 5 ML Q12H PRN PRN PO Sterile Water (WATER FOR INJECTION) 1 ML ASDIR PRN IV Physical Exam General appearance: alert, awake Head/Eyes: atraumatic ENT: moist mucosal membranes Neck: non-tender Cardiovascular: CV assessment: regular rate and rhythm Respiratory: decreased breath sounds, rales Abdomen: soft, non-tender Lower extremity: LE assessment: edema Results Findings/Data: Laboratory Tests 03/02 0409 Chemistry Magnesium (1.8 - 2.4 mg/dl) 2.2 Diagnosis, Assessment Plan Hospital course to date: Echocardiogram done on 02/24/2024 showed EF about 45% to 50%. Right ventricular systolic function is also reduced. ASSESSMENT AND PLAN: A 73-year-old male patient with history of coronary artery disease, chronic systolic heart failure, hypertension, comes with acute respiratory failure. 1. Acute respiratory failure. Continue BiPAP as per Primary Service and Pulmonary Critical Care. 2. Acute on chronic systolic heart failure. Continue home medicine. We will resume her home medicine and follow up. Keep him on fluid restricted diet. Continue Lasix to 40 mg IV bid 3. Coronary artery disease, mild troponin elevation consistent with type 2 myocardial infarction, especially given hypoxia. Plan: We will continue to monitor closely. Further workup can be done at a later date, possibly as an outpatient. 4. Hypertension. Continue home medications. 5. Diabetes mellitus. Continue as per primary service. Will continue to follow. at [facility] RPT #:[id number] END OF REPORT [facility] 2024-03-01 13:31:00 [facility] ([facility]) Pulmonology Progress Note REPORT#:[id number] REPORT STATUS: Signed REPORT INITIALIZATION DATE:03/01/24 TIME: 1331 PATIENT: WILLI MERRITT UNIT #: [id number] ROOM/BED: [place] [address] : 52 AGE: 73 SEX: M ATTEND: Lisa Layton MD ADM AUTHOR: Dakota Melgar MD REPT SERVICE DT/TIME: 03/01/24 1331 * ALL edits or amendments must be made on the electronic/computer document * Subjective Chief complaint: sob Nursing reports: Yes: agitated, oriented. No: shortness of breath. Comments: Intermittent agitation with patient wanting to leave - he can temporarily be redirected by the nurse. Patient has been requesting additional meal portions. He is on BiPAP at my visit. ROS negative for f/c, n/v. Objective General VS/I O: Last Documented: Result Date Time Temp 98.4 03/01 1317 Pulse Ox 96 03/01 1316 Pulse 76 03/01 1316 FiO2 40 03/01 1304 O2 Delivery BiPAP 03/01 1304 B/P 136/73 03/01 1300 B/P Mean 98 03/01 1300 Resp 18 03/01 1300 O2 Flow Rate 5 03/01 0735 24 hour I O ending at 0700: 02/28 1900 03/01 0700 Intake Total 500 80 Output Total 700 950 Balance -200 -870 Intake, Oral 500 80 Number 1 1 Bowel Movements Output, Stool 0 Output, Urine 700 950 PATIENT WEIGHT: Weight (lb): 258 Weight (oz): 6.11 Weight (kg): 117.200 Medications: Active Meds + DC'd Last 24 Hrs Furosemide (LASIX 40MG INJ) 40 MG BID 9A 5P IV Aspirin (ASPIRIN 81MG CHEW) 81 MG DAILY PO Clopidogrel Bisulfate (PLAVIX) 75 MG DAILY PO Loratadine (CLARITIN) 10 MG DAILY PO Insulin Human Lispro (HumaLOG 100 UNITS/ML) 0 AC HS SUBQ Dextrose/Water (DEXTROSE 10%) 125 ML ASDIR PRN IV (CKD) Dextrose/Water (DEXTROSE 10%) 250 ML ASDIR PRN IV (CKD) Glucagon (GLUCAGON) 1 MG ASDIR PRN IM Insulin Human Regular (HUMAN INSULIN REG) 8 UNITS ONCE ONE IV (DC) Atorvastatin Calcium (Lipitor) 80 MG DAILY@2100 PO Ceftriaxone Sodium (cefTRIAXone 1,000 MG VIAL) 1,000 MG Q24H IV Sodium Chloride (SODIUM CHLORIDE 0.9% 10ML) 10 ML Acetaminophen (TYLENOL 325MG) 650 MG Q4H PRN PRN PO Hydrocodone Bitart/Acetaminophen (NORCO 5/325 TABLET) 1 TAB Q4H PRN PRN PO Insulin Human Lispro (HumaLOG 100 UNITS/ML) 0 AC HS SUBQ (DC) Insulin Human Lispro (HumaLOG 100 UNITS/ML) 0 AC HS SUBQ (DC) Methylprednisolone Sodium Succinate (Solu-Medrol 40 MG Vial) 40 MG Q8HR IV Furosemide (LASIX 20MG INJ) 20 MG BID 9A 5P IV (DC) Dextrose/Water (DEXTROSE 10%) 125 ML ASDIR PRN IV (DC) Dextrose/Water (DEXTROSE 10%) 250 ML ASDIR PRN IV (DC) Glucagon (GLUCAGON) 1 MG ASDIR PRN IM (DC) Metoprolol Tartrate (LOPRESSOR) 25 MG Q12HR PO Enoxaparin Sodium (LOVENOX) 30 MG Q24H SUBQ Budesonide (PULMICORT) 0.5 MG RTQ12H NEB Formoterol Fumarate (PERFOROMIST) 20 MCG RTBID NEB Mupirocin (BACTROBAN 2% 22 GM OINT) 1 APPLIC BID NASAL Albuterol/Ipratropium (IPRATR-ALBUTEROL 0.5-3 MG/3 ML) 3 ML RTQ6H NEB Albuterol/Ipratropium (IPRATR-ALBUTEROL 0.5-3 MG/3 ML) 3 ML RTQ2H PRN PRN NEB Chlorphenir/Hydrocodone Polistirex (TUSSIONEX) 5 ML Q12H PRN PRN PO Sterile Water (WATER FOR INJECTION) 1 ML ASDIR PRN IV Ondansetron HCl (ZOFRAN 2ML) 4 MG Q6H PRN PRN IV (DC) Dietitian nutrition assessment The data set between the solid lines has been imported from the dietitian's assessment. BMI Calculated: 41.7 Nutrition related diagnosis: Nutrition diagnosis details: Nutrition problem: Nutrition etiology: Nutrition signs and symptoms: Nutrition prescription: Dietitian name: Assessment completed: Physical Exam General appearance: alert, awake Cardiovascular: normal S1/S2, regular rate rhythm, no murmur, no rub, no gallop Respiratory/chest: decreased breath sounds, on oxygen, rales Abdomen: soft, normal bowel sounds, no distention Extremities: edema, normal temperature, no clubbing Musculoskeletal: normal inspection, no muscle spasm Neuro/HAND STONER: alert, oriented X 3, CNII-XII intact, no motor deficits Skin: dry, stasis hyperpigmentation Lymphatics: neck normal, no lymphadenopathy Psychiatry: normal affect, normal mood Results Findings/Data: Laboratory Tests 03/01/24 0417: [Embedded Image Not Available] Laboratory Tests 02/28 03/01 03/01 03/01 1655 0417 0417 1200 Chemistry Sodium (134.0 - 147.0 mmol/l) 133 L Potassium (3.6 - 5.2 mmol/L) 4.8 Chloride (98.0 - 107.0 mmol/l) 93 L Carbon Dioxide (21.0 - 33.0 mmol/l) 30.4 Anion Gap (0 - 20) 14.4 BUN (7.0 - 18.0 mg/dl) 41 H Creatinine (0.60 - 1.30 mg/dL) 1.74 H Estimated Creat Clear (>30 mL/min) 35 Glomerular Filtr Rate (mL/min) 41 Glucose (70.0 - 110.0 mg/dl) 499 *H POC Glucose (70 - 110 mg/dL) 298 H 397 H Hemoglobin A1c (4.8 - 6.0 %A1C) 7.9 H Estim Average Glucose (MG/DL) 180 Calcium (8.0 - 10.5 mg/dl) 8.5 Diagnosis, Assessment Plan Free Text A P: 1. Acute hypercapnic/hypoxemic respiratory failure on chronic hypoxemic respiratory failure O2 via high flow nasal cannula Wean to baseline of 6 L/min as tolerated Worsened related to pulmonary edema remains hypoxic but has 10L concentrator and he is demanding discharge Continue diuresis as tolerated 2. CHF exacerbation significant fluid overload recent echo: EF 45-49% with grade 2 DD, moderately dilated RV and reduced RV systolic function agree with increased IV Lasix cardiology following 3. DIANNE/OHS Patient reports having inconsistently using home CPAP Will continue to use BiPAP nightly and as needed while hospitalized 4. Acute kidney injury with chronic kidney disease? Continue to follow BUN and creatinine May improve with diuresis 5. Hypokalemia Replace as needed Orders: Procedure Date/time Status BASIC METABOLIC PANEL 03/06 0500 Active BASIC METABOLIC PANEL 03/05 0500 Active BASIC METABOLIC PANEL 03/04 0500 Active BASIC METABOLIC PANEL 03/03 0500 Active MAGNESIUM 03/02 0500 Active CBC W/AUTO DIFF 03/02 0500 Active BASIC METABOLIC PANEL 03/02 0500 Active at 1334 RPT #:[id number] END OF REPORT [facility] 2024-03-01 11:11:00 [facility] Cardiology Progress Note REPORT#:[id number] REPORT STATUS: Signed REPORT INITIALIZATION DATE:03/01/24 TIME: 1111 PATIENT: WILLI MERRITT UNIT #: [id number] ROOM/BED: [place] [address] : 52 AGE: 73 SEX: M ATTEND: Lisa Layton MD ADM AUTHOR: Mina Martínez MD REPT SERVICE DT/TIME: 03/01/24 1111 * ALL edits or amendments must be made on the electronic/computer document * Subjective Chief complaint: PT notes cont mild SOB Objective General VS/I O: 24 hour I O ending at 0700: 03/01 0700 02/28 1900 Intake Total 80 500 Output Total 950 700 Balance -870 -200 Intake, Oral 80 500 Number 1 1 Bowel Movements Output, Stool 0 Output, Urine 950 700 Vital Signs: Date Time Temp Pulse Resp B/P B/P Pulse O2 O2 Flow FiO2 Mean Ox Delivery Rate 03/01 0735 81 99 40 03/01 0735 99 Nasal 5 cannula 03/01 0600 74 18 131/72 96 100 03/01 0500 75 23 149/69 99 100 03/01 0401 75 31 126/77 96 99 03/01 0357 78 100 40 03/01 0300 77 19 144/74 102 100 03/01 0201 85 25 134/72 95 87 03/01 0100 80 26 142/83 107 93 05 0000 77 16 142/87 108 97 02/28 2300 78 20 140/84 107 100 05 2200 83 20 151/86 111 79 02/28 2100 81 25 137/76 100 100 02/28 2030 84 12 135/66 91 86 02/29 2000 37.2 02/29 2000 Nasal cannula 02/29 2000 82 19 126/84 100 97 02/28 1900 78 18 137/62 94 99 02/28 1833 96 Room air 13 02/28 1830 74 19 127/65 89 96 02/28 1800 75 19 122/58 84 96 05 1748 124/78 94 02/28 1701 79 27 108/57 74 87 02/28 1630 73 19 132/76 99 100 02/28 1600 67 21 136/61 88 100 02/28 1530 71 22 116/58 80 100 05/ 1500 71 29 116/56 80 97 / 1434 75 95 40 / 1430 74 22 116/60 82 94 02/28 1401 36.9 05 1400 75 21 125/68 90 94 / 1330 82 34 123/65 88 84 05/ 1302 82 28 122/69 90 82 05 1300 81 27 138/112 122 76 02/28 1230 81 31 136/77 100 92 02/28 1200 142/75 100 94 02/28 1130 78 18 122/75 93 94 PATIENT WEIGHT: Weight (lb): 258 Weight (oz): 6.11 Weight (kg): 117.200 Physical Exam General appearance: alert, awake ENT: moist mucosal membranes Neck: no bruit/NL carotids, no JVD Cardiovascular: CV assessment: regular rate and rhythm Respiratory: clear to auscultation Abdomen: non-tender, normal bowel sounds, no distention, no guarding, no mass/ organomegaly, no pulsatile mass, no rebound Lower extremity: LE assessment: no clubbing, no cyanosis, no edema Diagnosis, Assessment Plan Hospital course to date: Echocardiogram done on 02/24/2024 showed EF about 45% to 50%. Right ventricular systolic function is also reduced. ASSESSMENT AND PLAN: A 73-year-old male patient with history of coronary artery disease, chronic systolic heart failure, hypertension, comes with acute respiratory failure. 1. Acute respiratory failure. Continue BiPAP as per Primary Service and Pulmonary Critical Care. 2. Acute on chronic systolic heart failure. Continue home medicine. We will resume her home medicine and follow up. Keep him on fluid restricted diet. Increase Lasix to 40 mg IV bid 3. Coronary artery disease, mild troponin elevation consistent with type 2 myocardial infarction, especially given hypoxia. Plan: We will continue to monitor closely. Further workup can be done at a later date, possibly as an outpatient. 4. Hypertension. Continue home medications. 5. Diabetes mellitus. Continue as per primary service. at 1113 RPT #:[id number] END OF REPORT [facility] 2024-03-01 09:44:00 [facility] Hospitalist Progress Note REPORT#:[id number] REPORT STATUS: Signed REPORT INITIALIZATION DATE:03/01/24 TIME: 943 PATIENT: WILLI MERRITT UNIT #: [id number] ROOM/BED: [place] [address] : 54 AGE: 73 SEX: M ATTEND: Lisa Layton MD ADM AUTHOR: Tricia Schofield MD REPT SERVICE DT/TIME: 03/01/24 0944 * ALL edits or amendments must be made on the electronic/computer document * Subjective Chief complaint: respiratory failure , AMS follow up kept his BIPAP for 5 hours and now better still on BIPAP , alert talking on phone 100% PO intake Review of Systems Constitutional: Denies: fever. Respiratory: Reports: SOB. Denies: productive cough (sputum). Cardiovascular: Denies: chest pain. GI: Denies: nausea, vomiting. Objective General VS/I O: Laboratory Tests 03/01/247: [Embedded Image Not Available] 02/28/242039: [Embedded Image Not Available] Active Meds + DC'd Last 24 Hrs Aspirin (ASPIRIN 81MG CHEW) 81 MG DAILY PO Clopidogrel Bisulfate (PLAVIX) 75 MG DAILY PO Loratadine (CLARITIN) 10 MG DAILY PO Insulin Human Lispro (HumaLOG 100 UNITS/ML) 0 AC HS SUBQ Dextrose/Water (DEXTROSE 10%) 125 ML ASDIR PRN IV (CKD) Dextrose/Water (DEXTROSE 10%) 250 ML ASDIR PRN IV (CKD) Glucagon (GLUCAGON) 1 MG ASDIR PRN IM Insulin Human Regular (HUMAN INSULIN REG) 8 UNITS ONCE ONE IV (DC) Atorvastatin Calcium (Lipitor) 80 MG DAILY@2100 PO Ceftriaxone Sodium (cefTRIAXone 1,000 MG VIAL) 1,000 MG Q24H IV Sodium Chloride (SODIUM CHLORIDE 0.9% 10ML) 10 ML Acetaminophen (TYLENOL 325MG) 650 MG Q4H PRN PRN PO Hydrocodone Bitart/Acetaminophen (NORCO 5/325 TABLET) 1 TAB Q4H PRN PRN PO Insulin Human Lispro (HumaLOG 100 UNITS/ML) 0 AC HS SUBQ (DC) Insulin Human Lispro (HumaLOG 100 UNITS/ML) 0 AC HS SUBQ (DC) Methylprednisolone Sodium Succinate (Solu-Medrol 40 MG Vial) 40 MG Q8HR IV Dextrose/Water (DEXTROSE 10%) 125 ML ASDIR PRN IV (DC) Dextrose/Water (DEXTROSE 10%) 250 ML ASDIR PRN IV (DC) Furosemide (LASIX 20MG INJ) 20 MG BID 9A 5P IV Glucagon (GLUCAGON) 1 MG ASDIR PRN IM (DC) Dextrose/Water (DEXTROSE 10%) 125 ML ASDIR PRN IV (DC) Dextrose/Water (DEXTROSE 10%) 250 ML ASDIR PRN IV (DC) Glucagon (GLUCAGON) 1 MG ASDIR PRN IM (DC) Metoprolol Tartrate (LOPRESSOR) 25 MG Q12HR PO Enoxaparin Sodium (LOVENOX) 30 MG Q24H SUBQ Budesonide (PULMICORT) 0.5 MG RTQ12H NEB Formoterol Fumarate (PERFOROMIST) 20 MCG RTBID NEB Mupirocin (BACTROBAN 2% 22 GM OINT) 1 APPLIC BID NASAL Albuterol/Ipratropium (IPRATR-ALBUTEROL 0.5-3 MG/3 ML) 3 ML RTQ6H NEB Albuterol/Ipratropium (IPRATR-ALBUTEROL 0.5-3 MG/3 ML) 3 ML RTQ2H PRN PRN NEB Chlorphenir/Hydrocodone Polistirex (TUSSIONEX) 5 ML Q12H PRN PRN PO Sterile Water (WATER FOR INJECTION) 1 ML ASDIR PRN IV Ondansetron HCl (ZOFRAN 2ML) 4 MG Q6H PRN PRN IV (DC) Sterile Water (WATER FOR INJECTION) 10 ML ASDIR PRN IV (DC) Microbiology Date/Time Procedure - Status Source Growth 02/28 0458 MRSA Screen - RECD NASAL 02/28 2156 Blood Culture - RES BLOOD 02/28 2156 Blood Culture - RES BLOOD 02/28 2156 Blood Culture - RES BLOOD 02/28 2156 Blood Culture - RES BLOOD Recent Impressions-Last 72 Hrs RADIOLOGY - XR CHEST 1 V 02/28 2152 Report Impression - Status: SIGNED Entered: 02/28/2024 2316 IMPRESSION: Mild central pulmonary vascularity with interstitial edema. Impression By: Arsen Villalpando Md CAT SCAN - CT HEAD/BRAIN W/O CONT 02/27 2239 Report Impression - Status: SIGNED Entered: 02/28/20248 IMPRESSION: No acute intracranial abnormality. Impression By: Arsen Villalpando Md CAT SCAN - CT ABD PELVIS W/CONT 02/27 2242 Report Impression - Status: SIGNED Entered: 02/29/20247 IMPRESSION: 1. Pulmonary nodules involving posterior right upper lobe posterior right lower lobe similar to prior study dated 04/24/2023. 12 month follow-up recommended. 2. Bibasilar atelectasis. No focal airspace consolidation. 3. No evidence of bowel obstruction. No intra-abdominal free air or abscess. No acute inflammatory process. Impression By: [email or web address] - Tunde Bashir M.D. CAT SCAN - CT CHEST W/CONTRAST 02/27 2242 Report Impression - Status: SIGNED Entered: 02/29/20247 IMPRESSION: 1. Pulmonary nodules involving posterior right upper lobe posterior right lower lobe similar to prior study dated 04/24/2023. 12 month follow-up recommended. 2. Bibasilar atelectasis. No focal airspace consolidation. 3. No evidence of bowel obstruction. No intra-abdominal free air or abscess. No acute inflammatory process. Impression By: [email or web address] - Tunde Bashir M.D. Vital Signs: Date Time Temp Pulse Resp B/P B/P Pulse O2 O2 Flow FiO2 Mean Ox Delivery Rate 03/01 0600 74 18 131/72 96 100 03/01 0500 75 23 149/69 99 100 03/01 0401 75 31 126/77 96 99 03/01 0357 78 100 40 03/01 0300 77 19 144/74 102 100 03/01 0201 85 25 134/72 95 87 03/01 0100 80 26 142/83 107 93 03/01 0000 77 16 142/87 108 97 02/28 2300 78 20 140/84 107 100 02/28 2200 83 20 151/86 111 79 02/28 2100 81 25 137/76 100 100 02/28 2030 84 12 135/66 91 86 02/29 2000 99.0 02/29 2000 Nasal cannula 02/29 2000 82 19 126/84 100 97 02/28 1900 78 18 137/62 94 99 02/28 1833 96 Room air 13 02/28 1830 74 19 127/65 89 96 02/28 1800 75 19 122/58 84 96 02/28 1748 124/78 94 02/28 1701 79 27 108/57 74 87 02/28 1630 73 19 132/76 99 100 02/28 1600 67 21 136/61 88 100 02/28 1530 71 22 116/58 80 100 02/28 1500 71 29 116/56 80 97 02/28 1434 75 95 40 02/28 1430 74 22 116/60 82 94 02/28 1401 98.5 02/28 1400 75 21 125/68 90 94 02/28 1330 82 34 123/65 88 84 02/28 1302 82 28 122/69 90 82 02/28 1300 81 27 138/112 122 76 02/28 1230 81 31 136/77 100 92 02/28 1200 142/75 100 94 02/28 1130 78 18 122/75 93 94 02/28 1100 73 21 132/76 99 91 02/28 1030 74 26 128/79 98 91 02/28 1000 72 14 123/74 94 93 02/28 0959 BiPAP 40 24 hour I O ending at 0700: 03/01 0700 02/28 1900 Intake Total 80 500 Output Total 950 700 Balance -870 -200 Intake, Oral 80 500 Number 1 1 Bowel Movements Output, Stool 0 Output, Urine 950 700 PATIENT WEIGHT: Weight (lb): 258 Weight (oz): 6.11 Weight (kg): 117.200 Free Text Obj Notes Free Text Obj Notes: PHYSICAL EXAMINATION: General appearance: alert , on BiPAP no acute distress, obese Head/Eyes: atraumatic, face is symmetric Neck: supple, no masses or swelling Cardiovascular: regular rate rhythm, normal heart sounds Respiratory: Decreased breath sounds bilaterally, no distress Abdomen/GI: active bowel sounds, soft, non-tender, obese Extremities: moves all, PIO LE edema, no cyanosis Neuro/HAND STONER: alert OX3, no focal deficits Skin: dry, intact Psychiatry: mood appropriate Diagnosis, Assessment Plan Free Text DxA P Notes Free text DxA P notes: Acute on chronic hypoxic and hypercapnic respiratory failure On BiPAP Pulmonology follow-up Steroids Solu-Medrol , duonebs Acute on chronic systolic heart failure IV diuresis Cardiology consultation Echocardiogram EF 35 to 39% April 2023 -- 45-49% February 2024; grade 2 diastolic dysfunction Lactic acidosis Follow cultures -- blood cx coag neg staph in 4 -- repeat Continue antibiotics Elevated troponins --like;y type 2 MA H/O disease, cardiac stents cardiology consulted ASA, plavix, statin, beta lisa CKD stage III -- Cr -- 1.4 . 1.7 Pulmonary nodules right upper and lower lobes similar to April 2023 Diabetes mellitus type 2 A1c, SSI, home medications --glipizide and aspart ; schedule Lantus Hypertension blood pressure controlled Morbid obesity BMI 41 --OHS/DIANNE Uses CPAP inconsistently at home Needs lifestyle modification with diet and exercise Dyslipidemia DVT prophylaxis Lovenox -- more alert -- monitor blood sugars -- wean BIPAP -- continue diuresis at 0801 RPT #:[id number] END OF REPORT [facility] 2024-02-29 11:45:00 [facility] ([facility] Clinical Note REPORT#:[id number] REPORT STATUS: Signed REPORT INITIALIZATION DATE:02/29/24 TIME: 1145 PATIENT: WILLI MERRITT UNIT #: [id number] ROOM/BED: [place] [address] : [birth year] AGE: 73 SEX: M ATTEND: Lisa Layton MD ADM AUTHOR: Elizabeth David MD REPT SERVICE DT/TIME: 02/29/24 1145 * ALL edits or amendments must be made on the electronic/computer document * Clinical Note Note: Cardiology consult dictated # [id number] at 1145 RPT #:[id number] END OF REPORT [facility] 2024-02-29 11:44:00 [id number] [place] [address] PATIENT NAME: WILLI MERRITT ADMIT DATE: 02/29/24 ACCOUNT NO: [id number] DISCHARGE DATE: 03/10/24 ROOM NO: [facility] REPORT TYPE: CONSULTATION REPORT DATE OF : 54 AGE: 73 SEX: M ADMITTING PHYSICIAN:Lisa Layton MD ATTENDING PHYSICIAN:Lisa Layton MD CONSULTATION DATE: 02/29/2024 CARDIOLOGY CONSULTATION REASON FOR CONSULTATION: CHF, respiratory failure. HISTORY OF PRESENT ILLNESS: The patient is a 73-year-old male patient with past medical history of CHF, [employer] defibrillator, history of coronary artery disease with previous LAD stents, diabetes mellitus, hypertension, hyperlipidemia, who was in the hospital and was recently discharged yesterday and after going home, patient apparently was found [place] a gas station with altered mental status, so the patient was brought in and was noted to be severely hypoxic and short of breath. The patient's oxygen saturations were 83% on room air, currently on BiPAP, cannot get any history from the patient. PAST MEDICAL HISTORY: 1. Chronic systolic heart failure. 2. Coronary artery disease with stent to left anterior descending artery and circumflex artery and had a BULK SEALER of the right coronary artery. 3. Hypertension. 4. Diabetes mellitus. 5. Dyslipidemia. 6. Chronic systolic heart failure with [employer] defibrillator. MEDICATIONS: Reviewed from the DEC. Cardiac medications are enoxaparin subcutaneous. At home, he was on aspirin 81 mg daily, metoprolol tartrate 25 mg q. 12 hours, atorvastatin 80 mg daily, Plavix 75 mg daily, lisinopril 2.5 mg daily. ALLERGIES: NO KNOWN DRUG ALLERGIES. SOCIAL HISTORY: No history of current smoking, alcohol abuse or drug abuse. FAMILY HISTORY: Nothing contributory to current illness. REVIEW OF SYSTEMS: Unable to perform review of systems due to patient's current mental status. PHYSICAL EXAMINATION: VITAL SIGNS: Temperature 98.4, pulse 73, respiration 20, blood pressure 118/64. GENERAL: The patient is an adult male patient, currently on BiPAP, lethargic. EYES: No pallor. No icterus. ENT: Oral mucosa moist. PATIENT NAME: WILLI MERRITT NECK: No obvious JVD appreciated due to body habitus. CARDIOVASCULAR SYSTEM: S1, S2, regular. RESPIRATORY: Bilateral air entry fair. Bilateral crepitations heard. ABDOMEN: Soft, nontender. EXTREMITIES: Mild pitting pedal edema bilaterally. NEUROLOGIC: The patient is lethargic. SKIN: No rashes. HEAD: Atraumatic. LABORATORY DATA: Troponin was 101, then 280, than 310. ABG when he presented yesterday shows pH of 7.4 with a pCO2 of 58 and pO2 of 29. Now this morning, pH of 7.47, pCO2 of 48, pO2 was 84. White count 8.4, hemoglobin 10.3, hematocrit 34.2, platelets 204. Sodium 139, potassium 4.8, chloride 98, bicarbonate 33, BUN 27, creatinine 1.4, blood sugar is 122. DIAGNOSTIC DATA: EKG shows atrial sensed ventricular paced rhythm. Echocardiogram done on 02/24/2024 showed EF about 45% to 50%. Right ventricular systolic function is also reduced. ASSESSMENT AND PLAN: A 73-year-old male patient with history of coronary artery disease, chronic systolic heart failure, hypertension, comes with acute respiratory failure. 1. Acute respiratory failure. Continue BiPAP as per Primary Service and Pulmonary Critical Care. 2. Acute on chronic systolic heart failure. Continue home medicine. We will resume her home medicine and follow up. Keep him on fluid restricted diet. 3. Coronary artery disease, mild troponin elevation consistent with type 2 myocardial infarction, especially given hypoxia. Plan: We will continue to monitor closely. Further workup can be done at a later date, possibly as an outpatient. 4. Hypertension. Continue home medications. 5. Diabetes mellitus. Continue as per primary service. Thank you very much for the consult. We will follow with you. Dictated By: Elizabeth David MD Date Dictated: 02/29/2024 11:44:51 Date Transcribed: 02/29/2024 14:14:43 HEMANT Receipt ID: [id number] Authenticated by Elizabeth David On 03/22/2024 08:47:23 PM at 0847 PATIENT NAME: WILLI MERRITT [facility] 2024-02-29 09:08:00 [facility] ([facility]) Hospitalist History Physical REPORT#:[id number] REPORT STATUS: Signed REPORT INITIALIZATION DATE:02/29/24 TIME: 907 PATIENT: WILLI MERRITT UNIT #: [id number] ROOM/BED: [place] [address] : [birth year] AGE: 73 SEX: M ATTEND: Lisa Layton MD ADM AUTHOR: Tricia Schofield MD REPT SERVICE DT/TIME: 02/29/24 0908 * ALL edits or amendments must be made on the electronic/computer document * History of Present Illness HPI Chief complaint: Shortness of breath HPI: This is a 73-year-old male patient who was discharged day before yesterday, has history of coronary artery disease, diabetes mellitus, hypertension, dyslipidemia, systolic congestive heart failure, CKD stage III. Patient was found outside of [facility] pharmacy, confused, short of breath. EMS was called and he was found to be hypoxic with a O2 saturation of 83% on room air he was trying to walk up nasal cannula to the entire pump. Blood glucose on scene was 150. Patient is now in the ICU on BiPAP 50% oxygen. He is intermittently confused. He was able to say yes or no this morning but now he is lethargic. CT chest, abdomen pelvis pulmonary nodules involving right upper lobe posteriorly, right lower lobe, no bowel obstruction no free air. Chest x-ray pulmonary vascular congestion. Urinalysis negative. Lactic acid 3.9. ABG showed a pH of 7.4, pCO2 58, pO2 29 and bicarb 35. Lab work creatinine 1.4, BUN 27, glucose 122, bicarb 33, chloride 98, potassium 4.8, sodium 139. Hemoglobin 10.3, WC count 8400, platelet count 2 0 4000, INR 1.5. Review of systems not obtainable patient is lethargic on BiPAP. Patient was supposed to be on 6 L oxygen at home. Past medical history is obtained from the medical records Coronary artery disease, diabetes mellitus, hypertension, dyslipidemia, systolic heart failure, CKD stage III, chronic hypoxia on home oxygen 6 L Past surgical history Cardiac stents Family history Not known Social history Unknown history of smoking No known history of alcohol and drugs History Past Medical Surgical Hx Additional medical history: Systolic CHF, diabetes mellitus type 2, hypertension, coronary artery disease s/p stents, chronic hypoxemia on home oxygen Additional surgical history: None Family History Additional family history: Not contributory to current problem Social History Alcohol use: Denies EtOH use Drug use: Denies recreational drugs Smoking status for patients 13 years old or older: Unknown,if ever smoked Medication/Allergy-Vaccine Hx Allergies: Coded Allergies: No Known Allergies (12/23/21) Review of Systems Unable to obtain due to: Lethargic, on BiPAP OBJECTIVE VS/I O: Laboratory Tests 02/28/242039: [Embedded Image Not Available] Active Meds + DC'd Last 24 Hrs Methylprednisolone Sodium Succinate (Solu-Medrol 40 MG Vial) 40 MG Q8HR IV Budesonide (PULMICORT) 0.5 MG RTQ12H NEB Formoterol Fumarate (PERFOROMIST) 20 MCG RTBID NEB Mupirocin (BACTROBAN 2% 22 GM OINT) 1 APPLIC BID NASAL Albuterol/Ipratropium (IPRATR-ALBUTEROL 0.5-3 MG/3 ML) 3 ML RTQ6H NEB Albuterol/Ipratropium (IPRATR-ALBUTEROL 0.5-3 MG/3 ML) 3 ML RTQ2H PRN PRN NEB Chlorphenir/Hydrocodone Polistirex (TUSSIONEX) 5 ML Q12H PRN PRN PO Sterile Water (WATER FOR INJECTION) 1 ML ASDIR PRN IV Aspirin (ASPIRIN) 325 MG ONCE ONE PO (DC) Ondansetron HCl (ZOFRAN 2ML) 4 MG Q6H PRN PRN IV Sterile Water (WATER FOR INJECTION) 10 ML ASDIR PRN IV Lorazepam (ATIVAN) 1 MG X1ED STA IV (DC) Furosemide (LASIX 100MG) 80 MG X1ED STA IV (DC) Enoxaparin Sodium (LOVENOX) 127.273 MG X1ED STA SUBQ (DC) Iopamidol (ISOVUE-300 100ML) 0 .STK-MED ONE IV (DC) Azithromycin (Azithromycin 500 mg Inj) 500 MG X1ED STA IV (DC) Sodium Chloride (SODIUM CHLORIDE 0.9%) 250 ML Ceftriaxone Sodium (cefTRIAXone 1,000 MG VIAL) 1,000 MG X1ED STA IV (DC) Sodium Chloride (SODIUM CHLORIDE 0.9% 10ML) 10 ML Microbiology Date/Time Procedure - Status Source Growth 02/28 0458 MRSA Screen - RECD NASAL 02/28 2156 Blood Culture - RECD BLOOD 02/28 2156 Blood Culture - RECD BLOOD 02/28 2156 Blood Culture - RECD BLOOD 02/28 2156 Blood Culture - RECD BLOOD Recent Impressions-Last 72 Hrs RADIOLOGY - XR CHEST 1 V 02/28 2152 Report Impression - Status: SIGNED Entered: 02/28/2024 2316 IMPRESSION: Mild central pulmonary vascularity with interstitial edema. Impression By: Arsen Villalpando Md CAT SCAN - CT HEAD/BRAIN W/O CONT 02/27 2239 Report Impression - Status: SIGNED Entered: 02/28/20242327 IMPRESSION: No acute intracranial abnormality. Impression By: Arsen Villalpando Md CAT SCAN - CT ABD PELVIS W/CONT 02/27 2242 Report Impression - Status: SIGNED Entered: 02/29/20247 IMPRESSION: 1. Pulmonary nodules involving posterior right upper lobe posterior right lower lobe similar to prior study dated 04/24/2023. 12 month follow-up recommended. 2. Bibasilar atelectasis. No focal airspace consolidation. 3. No evidence of bowel obstruction. No intra-abdominal free air or abscess. No acute inflammatory process. Impression By: [email or web address] - Tunde Bashir M.D. CAT SCAN - CT CHEST W/CONTRAST 02/27 2242 Report Impression - Status: SIGNED Entered: 02/29/2024 0017 IMPRESSION: 1. Pulmonary nodules involving posterior right upper lobe posterior right lower lobe similar to prior study dated 04/24/2023. 12 month follow-up recommended. 2. Bibasilar atelectasis. No focal airspace consolidation. 3. No evidence of bowel obstruction. No intra-abdominal free air or abscess. No acute inflammatory process. Impression By: [email or web address] - Tunde Bashir M.D. Vital Signs Date Temp Pulse Resp B/P B/P Mean Pulse Ox FiO2 02/27-02/28 97.4-98.4 79-95 16-110 109-161/60-81 82-115 40-100 40-95 Last Documented: Result Date Time Pulse Ox 99 02/28 0600 B/P 125/60 02/28 0600 B/P Mean 86 02/28 0600 Pulse 79 02/28 0600 Resp 16 02/28 0600 Temp 98.4 02/28 0409 O2 Delivery BiPAP 02/28 0409 FiO2 40 02/28 0316 24 hour I O ending at 0700: 02/28 0700 02/27 1900 Intake Total Output Total Balance Patient 117.2 kg Weight Weight Bed scale Measurement Method Patient Weight and BMI Weight (kg): 117.200 BMI: 41.7 Free Text PE Notes Free Text PE Notes: PHYSICAL EXAMINATION: General appearance: Lethargic, on BiPAP no acute distress Head/Eyes: atraumatic, face is symmetric ENT: Normal external ears Neck: supple, no masses or swelling Cardiovascular: regular rate rhythm, normal heart sounds Respiratory: Decreased breath sounds bilaterally, no distress Abdomen/GI: active bowel sounds, soft, non-tender, no distention Extremities: moves all, no edema, no cyanosis Neuro/HAND STONER: Lethargic Skin: dry, intact Psychiatry: Unable to evaluate Diagnosis, Assessment Plan Free Text A P: Acute on chronic hypoxic and hypercapnic respiratory failure On BiPAP Pulmonology follow-up Steroids Solu-Medrol , duonebs Acute on chronic systolic heart failure IV diuresis Cardiology consultation Echocardiogram EF 35 to 39% April 2023 -- 45-49% February 2024; grade 2 diastolic dysfunction Lactic acidosis Follow cultures Continue antibiotics Elevated troponins --like;y type 2 MA H/O disease, cardiac stents cardiology consulted ASA, plavix, statin, beta lisa CKD stage III -- Cr stable -- 1.4 Pulmonary nodules right upper and lower lobes similar to April 2023 Diabetes mellitus type 2 A1c, SSI, home medications --glipizide and aspart ; schedule Lantus when he eats Hypertension blood pressure controlled Morbid obesity BMI 41 --OHS/DIANNE Uses CPAP inconsistently at home Needs lifestyle modification with diet and exercise Dyslipidemia DVT prophylaxis Lovenox at 1240 RPT #:[id number] END OF REPORT [facility] 2024-02-29 08:59:00 [facility] ([facility]) Pulmonary Consultation Note REPORT#:[id number] REPORT STATUS: Signed REPORT INITIALIZATION DATE:02/29/24 TIME: 858 PATIENT: WILLI MERRITT UNIT #: [id number] ROOM/BED: [place] [address] : [birth year] AGE: 73 SEX: M ATTEND: Lisa Layton MD ADM AUTHOR: Smiley Meng REPT SERVICE DT/TIME: 02/29/24 0859 * ALL edits or amendments must be made on the electronic/computer document * Smiley Meng 02/29/24 0859: History of Present Illness HPI Reason for consult: sob Chief complaint: sob HPI: Patient is a 73-year-old male, w/ PMH of HFrEF (EF 35-39%), DIANNE/OHS on home CPAP , chronic hypoxic respiratory failure on home oxygen 6 L/min, diabetes mellitus, hypertension, and hyperlipidemia who initially presented to [facility] ED on 02/22 with acute worsening shortness of breath x1 day. During his admission he was treated with BiPAP and Lasix. He was adamant to be discharged home and was finally DC'd on 02/26. Unfortunately, on 02/27 patient Swapna presented to [facility] ED via EMS after pharmacist at [facility] noted the patient was driving while confused and appeared short of breath. Apparently EMS reports that when they arrived on scene patient 's O2 sats were 83% on room air as his nasal cannula was hooked up to a "tire pump". EMS also reported that patient was confused and belligerent on scene. On arrival to ED patient noted to have BP 109/69, HR 95, RR 25, SpO2 95% on BiPAP. Labs and imaging obtained have been personally reviewed by me. ABG 7.40 /58.3/29.8/35.6, repeat ABG 7.473/48.5/84.8/34.7. Lactic acid 3.9 with repeat 3.0. BNP 697. WBC 8.4, BUN 27, CR 1.4, NA 139, K4.8,. T. bili 1.1, D bili 0.5 , AST 353, ALT 31, ALP 210, troponin 101. INR 1.5. Chest x-ray shows pulmonary edema and vascular congestion. CT abdomen and pelvis and CT chest were both done showing no acute abdominal process, stable pulmonary nodules, bibasilar atelectasis without focal consolidation. Patient was admitted to the ICU. Nursing patient admitted to the ICU confused on BiPAP. After a while on BiPAP altered mental status improved and patient was able to transition to nasal cannula. However after few hours on nasal cannula patient became lethargic and altered again, put back on BiPAP and after short time altered mental status improved. Patient was later able to transition back off of nasal cannula to attempt to eat lunch. I revisited with the patient and while he still seems confused he denies any complaints. He is asking for more food while he still has a full plate in front of him. He is upset that he did not get "white soda". Past medical history: CHF with a EF 35 to 39% DIANNE/OHS on home CPAP Chronic hypoxemic respiratory failure on home oxygen at 6 L/min Diabetes mellitus Hypertension Hyperlipidemia Social history: Patient is a lifelong non-smoker. No known history of alcohol or illegal drug abuse. Review of systems: Likely very unreliable however patient report: General: No current fevers or chills. Eyes: No recent visual change, redness, discharge. ENT: No recent hearing loss, nasal congestion, sinus problems, or sore throat. Respiratory: See HPI. Cardiovascular: No chest pain. Gastrointestinal: No nausea vomiting or diarrhea. Genitourinary: No dysuria, urgency, or hematuria. Musculoskeletal: No arthralgias, myalgias, joint pain or swelling. Neurologic: No seizures, syncope, or focal weakness. Psychiatric: No anxiety, agitation, depression, or confusion. Skin: No rash, swelling, bruising. Physical examination: General: Awake, Alert, NAD. HEENT: NC/AT. PERRL, EOMI, No JVD, Trachea Midline. Normal conjunctiva/sclera. Respiratory: Diminished Breath Sounds. Symmetric to expansion. No distress. Normal WOB. Cardiac: RRR, without murmur, rub, or gallop. Abdomen: Soft. + bowel sounds. No HSM or masses. Extremities: + + Edema. No cyanosis, clubbing. Lymphatic: No palpable lymphadenopathy. Neurologic: Cranial nerves II through XII are grossly intact. Normal speech. No focal deficits. Musculoskeletal: No deformity is apparent. Normal muscle bulk and tone. Skin: Warm, dry, intact to all visible areas. Psych: Pleasant and cooperative during exam. History - Adult longitudinal Past medical history: Reports: Coronary artery disease, Diabetes mellitus, Hypertension, Dyslipidemia. Additional medical history: Systolic CHF, diabetes mellitus type 2, hypertension, coronary artery disease s/p stents, chronic hypoxemia on home oxygen Additional surgical history: None Additional family history: Not contributory to current problem Alcohol use: Denies EtOH use Drug use: Denies recreational drugs Smoking status for patients 13 years old or older: Unknown,if ever smoked Allergies: Coded Allergies: No Known Allergies (12/23/21) Objective Physical Exam Vitals: Last Documented: Result Date Time Pulse Ox 99 02/28 0600 B/P 125/60 02/28 0600 B/P Mean 86 02/28 0600 Pulse 79 02/28 0600 Resp 16 02/28 0600 Temp 98.4 02/28 0409 O2 Delivery BiPAP 02/28 0409 FiO2 40 02/28 0316 Results Findings/Data: Laboratory Tests 02/28/242039: [Embedded Image Not Available] Laboratory Tests 02/27 02/27 2140 2106 Blood Gas Puncture Site LR RR ABG pH (7.350 - 7.450) 7.473 H 7.404 ABG pCO2 (35.0 - 45.0 mmHg) 48.5 H 58.3 H ABG pO2 (80.0 mmHg) 84.8 29.8 *L ABG HCO3 (22.0 - 26.0 MMOL/L) 34.7 H 35.6 H ABG O2 Saturation (92.0 - 99.0 %) 95.6 50.6 L ABG Base Excess (-4.0 - 4.0 MMOL/L) 9.8 H 9.2 H Kathe Test Unable Unable Carboxyhemoglobin (0.0 - 1.5 % THgb) 1.1 1.2 Methemoglobin (0.0 - 1.5 %) 0.3 0.1 Total Hemoglobin (12.0 - 16.0 g/dL) 11.5 L 11.0 L Vent Mode BiPAP BiPAP Vent Rate (/MIN) 16.0 16.0 FiO2 (%) 40.0 40.0 Laboratory Tests 02/28 02/28 02/28 02/27 02/27 0252 0156 0155 2322 2156 Chemistry Lactic Acid (0.4 - 2.0 mmol/L) 3.0 H 3.0 H 3.9 H Troponin I High Sens (0 - 76 ng/L) 310 *H 280 *H 02/27 Chemistry Sodium (134.0 - 147.0 mmol/l) 139 Potassium (3.6 - 5.2 mmol/L) 4.8 Chloride (98.0 - 107.0 mmol/l) 98 Carbon Dioxide (21.0 - 33.0 mmol/l) 33.0 Anion Gap (0 - 20) 12.8 BUN (7.0 - 18.0 mg/dl) 27 H Creatinine (0.60 - 1.30 mg/dL) 1.40 H Estimated Creat Clear (>30 mL/min) 44 Glomerular Filtr Rate (mL/min) 54 Glucose (70.0 - 110.0 mg/dl) 122 H Calcium (8.0 - 10.5 mg/dl) 8.9 Total Bilirubin (0.0 - 1.0 mg/dl) 1.1 H Direct Bilirubin (0.0 - 0.3 mg/dl) 0.5 H AST (15 - 37 Units/L) 53 H ALT (12.0 - 78.0 Units/L) 31 Total Alk Phosphatase (50.0 - 136.0 Units/L) 210 H Troponin I High Sens (0 - 76 ng/L) 101 H B-Natriuretic Peptide (5 - 100 PG/ML) 697 H Total Protein (6.0 - 8.1 GM/DL) 7.4 Albumin (3.2 - 4.7 gm/dL) 3.1 L LDL Cholesterol (70 - 130 mg/dl) 38 L Lipase (16 - 77 Units/L) 43 Laboratory Tests 02/270 Coagulation INR (0.89 - 1.14) 1.5 H PTT ([place]) (25.86 - 36.07 SECONDS) 35.10 PT Patient/Control Mix (9.9 - 12.8 SECONDS) 16.8 H Laboratory Tests 02/270 Hematology WBC (4.5 - 11.0 K/mm3) 8.4 RBC (4.40 - 5.90 M/mm3) 3.61 L Hgb (13.0 - 17.0 gm/dL) 10.3 L Hct (36.0 - 48.0 %) 34.2 L MCV (80.0 - 94.0 UM3) 94.7 H MCH (25.5 - 32.5 UUG) 28.5 MCHC (29.0 - 35.5 gm/dL) 30.1 RDW (11.5 - 15.0 %) 19.8 H Plt Count (150 - 400 K/mm3) 204 MPV (7.4 - 10.4 fl) 12.0 H Neut % (Auto) (49.0 - 76.0 %) 76.2 H Lymph % (Auto) (23.0 - 38.0 %) 11.5 L [place] % (Auto) (1.0 - 10.0 %) 11.1 H Eos % (Auto) (1.0 - 5.0 %) 0.4 L Baso % (Auto) (0.0 - 1.0 %) 0.4 Neut # (Auto) (2.4 - 6.3 K/mm3) 6.4 H Lymph # (Auto) (1.2 - 4.0 K/mm3) 1.0 L [place] # (Auto) (0.0 - 0.6 K/mm3) 0.9 H Eos # (Auto) (0.0 - 0.7 K/MM3) 0.0 Baso # (Auto) (0.0 - 0.2 K/mm3) 0.0 Absolute Nucleated RBC (0.00 - 0.01 X10 3uL) 0.00 Immature Gran % (0.0 - 0.4 %) 0.4 Nucleated RBC % (0.0 - 0.1 %) 0.0 Immature Gran # (0.00 - 0.07 x10 3/uL) 0.03 Laboratory Tests 05/20 2156 Urines Urine Color YELLOW Urine Appearance SLHZY Urine pH (5.0 - 9.0) 6.0 Ur Specific [place] (1.000 - 1.030) 1.015 Urine Protein (NEGATIVE mg/dl) 30 Urine Glucose (UA) (NORMAL mg/dl) NORMAL Urine Ketones (NEGATIVE mg/dl) NEGATIVE Urine Blood (NEGATIVE Emilio/micL) NEGATIVE Urine Nitrite (NEGATIVE) NEGATIVE Urine Bilirubin (NEGATIVE mg/dL) NEGATIVE Urine Urobilinogen (NORMAL mg/dl) 4.0 mg/dl H Ur Leukocyte Esterase (NEGATIVE Myron/micL) NEGATIVE Urine RBC (0 - 3 RBC/HPF) 0-2 Urine WBC (NONE WBC/HPF) 0-3 Ur Epithelial Cells (0 - 3 EPI/HPF) 0-3 Urine Bacteria (NONE) FEW Radiology Data: Recent Impressions: RADIOLOGY - XR CHEST 1 V 02/28 2152 Report Impression - Status: SIGNED Entered: 02/28/20246 IMPRESSION: Mild central pulmonary vascularity with interstitial edema. Impression By: Arsen Villalpando Md CAT SCAN - CT HEAD/BRAIN W/O CONT 02/27 2239 Report Impression - Status: SIGNED Entered: 02/28/20242327 IMPRESSION: No acute intracranial abnormality. Impression By: Arsen Villalpando Md CAT SCAN - CT ABD PELVIS W/CONT 02/27 2242 Report Impression - Status: SIGNED Entered: 02/29/202416 IMPRESSION: 1. Pulmonary nodules involving posterior right upper lobe posterior right lower lobe similar to prior study dated 04/24/2023. 12 month follow-up recommended. 2. Bibasilar atelectasis. No focal airspace consolidation. 3. No evidence of bowel obstruction. No intra-abdominal free air or abscess. No acute inflammatory process. Impression By: [email or web address] - Tunde Bashir M.D. CAT SCAN - CT CHEST W/CONTRAST 02/27 2242 Report Impression - Status: SIGNED Entered: 02/29/202416 IMPRESSION: 1. Pulmonary nodules involving posterior right upper lobe posterior right lower lobe similar to prior study dated 04/24/2023. 12 month follow-up recommended. 2. Bibasilar atelectasis. No focal airspace consolidation. 3. No evidence of bowel obstruction. No intra-abdominal free air or abscess. No acute inflammatory process. Impression By: [email or web address] - Tunde Bashir M.D. Diagnosis, Assessment Plan Free Text DxA P Notes Free Text DxA P Notes: 1. Acute hypercapnic/hypoxemic respiratory failure on chronic hypoxemic respiratory failure O2 via high flow nasal cannula Wean to baseline of 6 L/min as tolerated Worsened related to pulmonary edema remains hypoxic but has 10L concentrator and he is demanding discharge Continue diuresis as tolerated 2. CHF exacerbation Continue IV Lasix Cardiology re-consulted as well Follow chest x-ray Echo noted from previous 3. DIANNE/OHS Patient reports having inconsistently using home CPAP Will continue to use BiPAP nightly and as needed while hospitalized 4. Acute kidney injury with chronic kidney disease? Continue to follow BUN and creatinine May improve with diuresis 5. Hypokalemia Replace 6. Altered mental status Improved with BiPAP use Continue to monitor 7. Lactic acidosis possiby related to hypoxemia no leukocytosis or fever follow cultures Thank you for this consultation. We will continue to follow Skip Santos 03/01/24 0803: Attestations Physician Attestation Agree w/findings plan: Seen and examined Agree with plan as outlined above at 1458 at 0803 RPT #:[id number] END OF REPORT [facility] 2024-02-29 07:27:00 [facility] ([facility] Clinical Note REPORT#:[id number] REPORT STATUS: Signed REPORT INITIALIZATION DATE:02/29/24 TIME: 726 PATIENT: WILLI MERRITT UNIT #: [id number] ROOM/BED: [place] [address] : 52 AGE: 73 SEX: M ATTEND: Lisa Layton MD ADM AUTHOR: Skip Santos MD REPT SERVICE DT/TIME: 02/29/24726 * ALL edits or amendments must be made on the electronic/computer document * Clinical Note Note: Seen and examined Full note to follow at 0727 [facility] #:[id number] END OF REPORT [facility] 2024-02-29 00:04:00 [facility] ([facility]) EMERGENCY PROVIDER REPORT REPORT#:[id number] REPORT STATUS: Signed DATE:02/29/24 TIME: 3 PATIENT: WILLI MERRITT UNIT #: [id number] ROOM/BED: [place] [address] AGE: 73 SEX: M PCP PHYS: Harrison Alvarez III, MD SERVICE AUTHOR: Rosalina Jimenez MD * ALL edits or amendments must be made on the electronic/computer document * See Addendum HPI-Dyspnea/Wheezing General Confirmed Patient Yes Initial Greet Date/Time 02/28/242052 Presentation Chief Complaint Shortness of breath Free Text HPI Notes Free Text HPI Notes 73-year-old white male brought in by EMS after the pharmacist at [facility] noticed that he was driving while confused and appeared short of breath. EMS reports that when they arrived on scene patient's O2 sat was 83% on room air and he was using a nasal cannula hooked up to a tire pump. BGL on scene 150. Patient arrived to the ED very confused and unable to provide history. EMS reports that patient was confused and belligerent on scene as well. Patient was admitted here on 02/22/2024 with hypoxia and shortness of breath. Patient is supposed to be on 6 L nasal cannula at home according to old records but he has a history of noncompliance. Risk-Dyspnea/Wheezing Risk Stratification Coronary Artery Disease Risk factors reviewed Pulmonary Embolism Risk factors reviewed Review of Systems Free Text ROS Notes Free Text ROS Notes Constitutional: Denies fever, denies chills, denies generalized weakness ENT: Denies nasal congestion, denies sore throat Respiratory: Denies cough, +dyspnea on exertion, +shortness of breath, denies wheezing Cardiovascular: Denies chest pain, denies UGALDE, denies edema, denies orthopnea, denies palpitations, denies syncope ABD: Denies abdominal pain, nausea, vomiting, or diarrhea. Musculoskeletal: Denies back pain, denies extremity pain, denies extremity swelling, denies joint pain, denies joint swelling, denies neck pain Skin: Denies laceration, denies rash, denies abrasion, denies abscess, denies erythema Neurologic: Denies headache, denies focal weakness, denies dizziness, denies LOC , denies altered mental status, denies slurred speech, denies lightheadedness, denies syncope Past Medical History - Adult Stated Complaint PT C/O SHORTNESS OF BREATH AND CONFUSION Allergies Coded Allergies: No Known Allergies (12/23/21) Home Medications Active Scripts LORATADINE (CLARITIN) 10 MG PO DAILY LORATADINE (CLARITIN) 10 MG PO DAILY #30 TAB Prov: 02/26/24 METOPROLOL TARTRATE (LOPRESSOR) 25 MG PO Q12H METOPROLOL TARTRATE (LOPRESSOR) 25 MG PO Q12H #60 TAB Prov: 11/01/21 ATORVASTATIN (LIPITOR) 80 MG PO DAILY ATORVASTATIN (LIPITOR) 80 MG PO DAILY #30 TABS Prov: 11/01/21 LISINOPRIL (ZESTRIL) 2.5 MG PO DAILY 30 Days #30 TAB Prov: 04/26/23 ASPIRIN 81 MG PO DAILY 90 Days #90 TABS Ref 3 Prov: 11/26/21 CLOPIDOGREL (PLAVIX) 75 MG PO DAILY 90 Days #90 TABS Ref 3 Prov: 12/24/21 Reported Medications INSULIN ASPART (NovoLOG CARTRIDGE (15mL)) 16 UNITS SUBQ AC BK FUROSEMIDE (LASIX) 40 MG PO BID IBUPROFEN (MOTRIN) 800 MG PO Q8H PRN PRN PAIN glipiZIDE (GLUCOTROL) 10 MG PO BID ACETAMINOPHEN/CODEINE (TYLENOL WITH CODEINE #3 300/30 MG) 1 TAB PO Q4H PRN PRN ACUTE PAIN ALBUTEROL (VENTOLIN HFA 90 MCG/ACT 18 GM) 1 PUFF INH BID Past Medical History: Reports: Coronary artery disease, Diabetes mellitus, Hypertension, Dyslipidemia. Additional Medical History Systolic CHF, diabetes mellitus type 2, hypertension, coronary artery disease s/p stents, chronic hypoxemia on home oxygen Additional Surgical History None Additional Family History Not contributory to current problem Alcohol Use Denies EtOH use Drug Use Denies recreational drugs Smoking status for patients 13 years old or older: Unknown,if ever smoked Physical Exam Vital Signs Vital Signs First Documented: Result Date Time Pulse Ox 40 02/27 2100 FiO2 95 02/27 2100 O2 Delivery BiPAP 02/27 2100 Pulse 95 02/27 2100 B/P 109/69 02/27 2102 B/P Mean 82 02/27 2102 Temp 36.3 02/27 2102 Resp 25 02/27 2102 Last Documented: Result Date Time Pulse Ox 95 02/27 2335 B/P 122/78 02/27 2335 B/P Mean 96 02/27 2335 Pulse 91 02/27 2335 Resp 110 02/27 2335 O2 Delivery BiPAP 02/28 2244 Temp 36.3 02/27 2102 FiO2 40 02/27 2100 Review of Vital Signs Reviewed Free Text PE Notes Free Text PE Notes GEN: Appears chronically ill, awake, alert, not toxic appearing, cooperative Head: Atraumatic/normocephalic Eyes: PERRLA, conjunctiva clear, EOMI, no nystagmus ENT: Atraumatic, airway patent, mucous membranes moist, pharynx normal Neck: Supple, no meningismus, full range of motion, no adenopathy, no midline vertebral tenderness, no tracheal deviation RESP: No respiratory distress, respirations are shallow and diminished in bases, no wheezing, no retractions CV: Sinus tachycardia, regular rhythm, no gallop, no murmurs, no rubs ABD: Atraumatic, soft, nontender, no guarding, no rebound, + distention EXT: 2+ pitting edema bilateral lower extremities Skin: Atraumatic, color normal, no rash, warm, dry, turgor normal, no swelling Neuro: Oriented x3, speech normal, no motor deficits, no sensory deficits, CN II - XII grossly intact Psych: Normal thought content Interpretation Diagnostics Lab Results Interpretation Results Laboratory Tests 02/28/242039: [Embedded Image Not Available] Laboratory Tests: 02/27 Blood Gas Puncture Site LR RR ABG pH (7.350 - 7.450) 7.473 H 7.404 ABG pCO2 (35.0 - 45.0 mmHg) 48.5 H 58.3 H ABG pO2 (80.0 mmHg) 84.8 29.8 *L ABG HCO3 (22.0 - 26.0 MMOL/L) 34.7 H 35.6 H ABG O2 Saturation (92.0 - 99.0 %) 95.6 50.6 L ABG Base Excess (-4.0 - 4.0 MMOL/L) 9.8 H 9.2 H Kathe Test Unable Unable Carboxyhemoglobin (0.0 - 1.5 % THgb) 1.1 1.2 Methemoglobin (0.0 - 1.5 %) 0.3 0.1 Total Hemoglobin (12.0 - 16.0 g/dL) 11.5 L 11.0 L Vent Mode BiPAP BiPAP Vent Rate (/MIN) 16.0 16.0 FiO2 (%) 40.0 40.0 Chemistry Lactic Acid (0.4 - 2.0 mmol/L) 3.0 H 3.9 H Urines Urine Color YELLOW Urine Appearance SLHZY Urine pH (5.0 - 9.0) 6.0 Ur Specific [place] (1.000 - 1.030) 1.015 Urine Protein (NEGATIVE mg/dl) 30 Urine Glucose (UA) (NORMAL mg/dl) NORMAL Urine Ketones (NEGATIVE mg/dl) NEGATIVE Urine Blood (NEGATIVE Emilio/micL) NEGATIVE Urine Nitrite (NEGATIVE) NEGATIVE Urine Bilirubin (NEGATIVE mg/dL) NEGATIVE Urine Urobilinogen (NORMAL mg/dl) 4.0 mg/dl H Ur Leukocyte Esterase (NEGATIVE NEGATIVE Myron/micL) Urine RBC (0 - 3 RBC/HPF) 0-2 Urine WBC (NONE WBC/HPF) 0-3 Ur Epithelial Cells (0 - 3 EPI/HPF) 0-3 Urine Bacteria (NONE) FEW 02/27 Chemistry Sodium (134.0 - 147.0 mmol/l) 139 Potassium (3.6 - 5.2 mmol/L) 4.8 Chloride (98.0 - 107.0 mmol/l) 98 Carbon Dioxide (21.0 - 33.0 mmol/l) 33.0 Anion Gap (0 - 20) 12.8 BUN (7.0 - 18.0 mg/dl) 27 H Creatinine (0.60 - 1.30 mg/dL) 1.40 H Estimated Creat Clear (>30 mL/min) 44 Glomerular Filtr Rate (mL/min) 54 Glucose (70.0 - 110.0 mg/dl) 122 H Calcium (8.0 - 10.5 mg/dl) 8.9 Total Bilirubin (0.0 - 1.0 mg/dl) 1.1 H Direct Bilirubin (0.0 - 0.3 mg/dl) 0.5 H AST (15 - 37 Units/L) 53 H ALT (12.0 - 78.0 Units/L) 31 Total Alk Phosphatase (50.0 - 136.0 Units/L) 210 H Troponin I High Sens (0 - 76 ng/L) 101 H B-Natriuretic Peptide (5 - 100 PG/ML) 697 H Total Protein (6.0 - 8.1 GM/DL) 7.4 Albumin (3.2 - 4.7 gm/dL) 3.1 L LDL Cholesterol (70 - 130 mg/dl) 38 L Lipase (16 - 77 Units/L) 43 Coagulation INR (0.89 - 1.14) 1.5 H PTT ([place]) (25.86 - 36.07 SECONDS) 35.10 PT Patient/Control Mix (9.9 - 12.8 SECONDS) 16.8 H Hematology WBC (4.5 - 11.0 K/mm3) 8.4 RBC (4.40 - 5.90 M/mm3) 3.61 L Hgb (13.0 - 17.0 gm/dL) 10.3 L Hct (36.0 - 48.0 %) 34.2 L MCV (80.0 - 94.0 UM3) 94.7 H MCH (25.5 - 32.5 UUG) 28.5 MCHC (29.0 - 35.5 gm/dL) 30.1 RDW (11.5 - 15.0 %) 19.8 H Plt Count (150 - 400 K/mm3) 204 MPV (7.4 - 10.4 fl) 12.0 H Neut % (Auto) (49.0 - 76.0 %) 76.2 H Lymph % (Auto) (23.0 - 38.0 %) 11.5 L [place] % (Auto) (1.0 - 10.0 %) 11.1 H Eos % (Auto) (1.0 - 5.0 %) 0.4 L Baso % (Auto) (0.0 - 1.0 %) 0.4 Neut # (Auto) (2.4 - 6.3 K/mm3) 6.4 H Lymph # (Auto) (1.2 - 4.0 K/mm3) 1.0 L [place] # (Auto) (0.0 - 0.6 K/mm3) 0.9 H Eos # (Auto) (0.0 - 0.7 K/MM3) 0.0 Baso # (Auto) (0.0 - 0.2 K/mm3) 0.0 Absolute Nucleated RBC (0.00 - 0.01 X10 3uL) 0.00 Immature Gran % (0.0 - 0.4 %) 0.4 Nucleated RBC % (0.0 - 0.1 %) 0.0 Immature Gran # (0.00 - 0.07 x10 3/uL) 0.03 Microbiology: Date/Time Procedure - Status Source Growth 02/28 2156 Blood Culture - RECD BLOOD 02/28 2156 Blood Culture - RECD BLOOD 02/28 2156 Blood Culture - RECD BLOOD 02/28 2156 Blood Culture - RECD BLOOD Recent Impressions: RADIOLOGY - XR CHEST 1 V 02/28 2152 Report Impression - Status: SIGNED Entered: 02/28/20242315 IMPRESSION: Mild central pulmonary vascularity with interstitial edema. Impression By: Arsen Villalpando Md CAT SCAN - CT HEAD/BRAIN W/O CONT 02/27 2239 Report Impression - Status: SIGNED Entered: 02/28/20242327 IMPRESSION: No acute intracranial abnormality. Impression By: Arsen Villalpando Md CAT SCAN - CT ABD PELVIS W/CONT 02/27 2242 Report Impression - Status: SIGNED Entered: 02/29/202416 IMPRESSION: 1. Pulmonary nodules involving posterior right upper lobe posterior right lower lobe similar to prior study dated 04/24/2023. 12 month follow-up recommended. 2. Bibasilar atelectasis. No focal airspace consolidation. 3. No evidence of bowel obstruction. No intra-abdominal free air or abscess. No acute inflammatory process. Impression By: [email or web address] - Tunde Bashir M.D. CAT SCAN - CT CHEST W/CONTRAST 02/27 2242 Report Impression - Status: SIGNED Entered: 02/29/202416 IMPRESSION: 1. Pulmonary nodules involving posterior right upper lobe posterior right lower lobe similar to prior study dated 04/24/2023. 12 month follow-up recommended. 2. Bibasilar atelectasis. No focal airspace consolidation. 3. No evidence of bowel obstruction. No intra-abdominal free air or abscess. No acute inflammatory process. Impression By: [email or web address] - Tunde Bashir M.D. Lab Imaging Statement Laboratory radiographic studies reviewed and considered in the medical decision-making. Point of Care Testing Pulse Oximetry Pulse Ox % 100 On: BIPAP Interpretation Interpreted by me, Pulse oximetry normal Time 0008 ECG #1 Interpretation Text/Dict Note EKG done on 02/28/2024 at 2100 interpreted by me. Paced with rate 94 bpm no STEMI Re-Evaluation MDM )( Re-Evaluation/Progress #1 Text/Dict Note Patient has remained medically stable while in the ED. Discussed test results and need for admission with patient. Time of Re-Eval 0011 )( Re-Eval Status Unchanged ED Course Medication(s) Ordered Medication(s) Ordered: Anti-Infective Agents Sig/Lala Start time Last Medication Dose Route Stop Time Status Admin Azithromycin 500 MG X1ED STA 02/276 DC 02/27 Sodium Chloride 250 ML IV 02/27 2235 2158 Ceftriaxone Sodium 1,000 MG X1ED STA 02/276 DC 02/27 Sodium Chloride 10 ML IV 02/27 2138 2158 Blood Formation,Coagulation Sig/Lala Start time Last Medication Dose Route Stop Time Status Admin Enoxaparin Sodium 127.273 MG X1ED STA 02/28 0014 DC SUBQ 02/28 0015 Central Nervous System Agents Sig/Lala Start time Last Medication Dose Route Stop Time Status Admin Aspirin 325 MG ONCE ONE 02/28 0030 AC PO 02/28 0031 Lorazepam 1 MG X1ED STA 02/28 0019 DC IV 02/28 0020 Diagnostic Agents Sig/Lala Start time Last Medication Dose Route Stop Time Status Admin Iopamidol 0 .STK-MED ONE 02/27 2226 DC 02/27 IV 2250 Electrolytic, Caloric, And Sven Sig/Lala Start time Last Medication Dose Route Stop Time Status Admin Furosemide 80 MG X1ED STA 02/28 0015 DC IV 02/28 0016 Gastrointestinal Drugs Sig/Lala Start time Last Medication Dose Route Stop Time Status Admin Ondansetron HCl 4 MG Q6H PRN PRN 02/28 0030 UNV IV 02/28 2317 Pharmaceutical Aids Sig/Lala Start time Last Medication Dose Route Stop Time Status Admin Sterile Water 10 ML ASDIR PRN 02/28 0030 UNV IV 05/29 0029 Differential Diagnosis )( Differential Diagnosis Acute coronary syndrome, Congestive heart failure, COPD exacerbation, Myocardial infarction, Pneumonia, Respiratory failure Ruled Out Sepsis This is not sepsis. MDM-Complexity Severity/Chronicity Evaluation Moderate, acute MDM-History/Test Information Independent Hx From/Why EMS Patient Discharge Departure Vital Signs/Condition Vital Signs First Documented: Result Date Time Pulse Ox 40 02/27 2100 FiO2 95 02/27 2100 O2 Delivery BiPAP 02/27 2100 Pulse 95 02/27 2100 B/P 109/69 02/27 2102 B/P Mean 82 02/27 2102 Temp 36.3 02/27 2102 Resp 25 02/27 2102 Last Documented: Result Date Time Pulse Ox 95 02/27 2335 B/P 122/78 02/27 2335 B/P Mean 96 02/27 2335 Pulse 91 02/27 2335 Resp 110 02/27 2335 O2 Delivery BiPAP 02/28 2244 Temp 36.3 02/27 2102 FiO2 40 02/27 2100 All vital signs available at the time of this entry have been reviewed. Condition Guarded Clinical Impression Clinical Impression Primary Impression: Respiratory failure Secondary Impressions: Acute exacerbation of CHF (congestive heart failure), Anemia, Edema, Fluid overload, Pulmonary congestion Time of Impression 0011 Disposition Decision Hospitalize Hosp Physician Name Lisa Layton MD Hosp Physician Hospitalist Request Time 0016 Request Date 02/29/24 )( Accepts Hospitalization Yes )( Accepted Time 15 )( Accepted Date 02/29/24 Discharge/Care Plan Hold in ED Note I have spoken with the patient and/or caregivers. I have explained the patient's condition, diagnoses and treatment plan based on the information available to me at this time. I have answered the patient's and/or caregiver's questions and addressed any concerns. The patient and/or caregivers have as good an understanding of the patient's diagnosis, condition and treatment plan as can be expected at this point. The patient has been stabilized within the capability of the emergency department. Although the emergency department has completed all appropriate management and is prepared to transport the patient to an observation or inpatient service, there are no available beds. Therefore the patient will be placed in "ED Hold" status until such time as a bed becomes available. Critical Care Time Spent (minutes): 35 Services Performed Patient management by me, Time spent at bedside, Reviewing test results, Reviewing imaging, Discussing patient care, Documentation in record Separately billable procedures excluded from time. CC Note 1 Total critical care time [35] minutes. Total critical care time documented does not include time spent on separately billed procedures or the services of residents, students, nurses or physician assistants. I personally saw and examined the patient. I have reviewed all diagnostic interpretations and treatment plans as written. I was present for the gallardo portions of any procedures performed and the inclusive time noted in any critical care statement. Critical care time includes patient management by me, time spent at the patients bedside, time to review lab and imaging results, discussing patient care, documentation in the medical record, and time spent with the family or caregiver. at 0022 Addendum 1: 02/29/24226 by Rosalina Jimenez MD Patient Addendum Addendum ADD NSTEMI TO DX WILL UPGRADE TO ICU at 0227 RPT #:[id number] END OF REPORT [facility] 2024-02-28 14:28:00 [facility] Pulmonology Progress Note REPORT#:[id number] REPORT STATUS: Signed REPORT INITIALIZATION DATE:02/28/24 TIME: 1427 PATIENT: WILLI MERRITT UNIT #: [id number] ROOM/BED: [place] [id number] : [birth year] AGE: 73 SEX: M ATTEND: Lauro Lane MD ADM AUTHOR: Skip Santos MD REPT SERVICE DT/TIME: 02/28/241427 * ALL edits or amendments must be made on the electronic/computer document * Subjective Chief complaint: SOB Comments: Doing about the same Ready go home ROS: no nausea/vomitting or chest pain Objective General VS/I O: Last Documented: Result Date Time Pulse Ox 93 02/27 1032 B/P 111/62 02/27 1032 B/P Mean 78.4 02/27 1032 Temp 97.9 02/27 1032 Pulse 60 02/27 1032 Resp 16 02/27 1032 O2 Delivery Nasal cannula 02/27 0800 O2 Flow Rate 5 02/27 0800 FiO2 99 02/25 0639 24 hour I O ending at 0700: 02/26 1900 02/27 0700 Intake Total Output Total 700 Balance -700 Output, Urine 700 PATIENT WEIGHT: Weight (lb): 247 Weight (oz): 12.79 Weight (kg): 112.400 Physical Exam General appearance: chronically ill appearing Head/eyes: atraumatic, normocephalic, PERRL, EOMI, clear cornea, normal conjunctiva/sclera, normal fundi, normal eyelids/periorb. ENT: ENT: normal dentition, normal ear left, normal ear right, normal nose, normal pharynx, normal sinus Neck: full range of motion, non-tender, normal thyroid, supple/no meningismus, no bruit/NL carotids, no JVD, no lymphadenopathy, no masses or swelling Cardiovascular: regular rate rhythm Respiratory/chest: crackles, dullness to percussion Abdomen: soft, non-tender, no distention, no guarding, no mass/organomegaly, no rebound Extremities: edema, moves all Musculoskeletal: full range of motion, normal inspection Neuro/HAND STONER: alert, oriented X 3 Skin: dry, intact Lymphatics: axilla normal, inguinal normal, neck normal, no lymphadenopathy Psychiatry: normal affect, normal judgment/insight, normal mood, not homicidal, not suicidal, no hallucinations Results Findings/Data: Laboratory Tests 02/26 02/26 02/27 02/27 1633 1959 0644 1032 Chemistry POC Glucose (70 - 110 mg/dL) 168 H 196 H 96 146 H Diagnosis, Assessment Plan Free Text A P: 1. Acute on chronic hypoxemic respiratory failure O2 via high flow nasal cannula Wean to baseline of 6 L/min as tolerated Worsened related to pulmonary edema remains hypoxic but has 10L concentrator and he is demanding discharge 2. CHF exacerbation Continue IV Lasix Cardiology following Follow chest x-ray Echo noted from previous 3. DIANNE/OHS Patient reports having inconsistently using home CPAP Will continue to use BiPAP nightly and as needed while hospitalized 4. Acute kidney injury with chronic kidney disease? Continue to follow BUN and creatinine May improve with diuresis 5. Hypokalemia Replace plan for d/c discussed compliance with medications at 1429 RPT #:[id number] END OF REPORT [facility] 2024-02-28 10:36:00 [facility] ([facility]) Cardiology Progress Note REPORT#:[id number] REPORT STATUS: Signed REPORT INITIALIZATION DATE:02/28/24 TIME: 1035 PATIENT: WILLI MERRITT UNIT #: [id number] ROOM/BED: [place] [id number] : 52 AGE: 73 SEX: M ATTEND: Lauro Lane MD ADM AUTHOR: Brooke Calzada TABLE COVER FOLDER REPT SERVICE DT/TIME: 02/28/24 1036 * ALL edits or amendments must be made on the electronic/computer document * Brooke Calzada 02/28/24 1036: Subjective Chief complaint: Pt notes SOB is improved Objective General VS/I O: 24 hour I O ending at 0700: 02/27 0700 02/26 1900 Intake Total Output Total 700 Balance -700 Output, Urine 700 Vital Signs: Date Time Temp Pulse Resp B/P B/P Pulse O2 O2 Flow FiO2 Mean Ox Delivery Rate 02/27 1032 97.9 60 16 111/62 78.4 93 02/27 0645 98.2 67 17 128/72 90.7 98 02/27 0622 97 Nasal 7 cannula 02/27 0400 98.2 64 16 120/67 84.3 96 02/27 0400 98.2 64 16 120/67 84.3 96 02/26 2325 97.5 70 17 129/63 85.0 90 02/26 2325 97.5 70 17 129/63 85.0 90 02/26 2230 Nasal 5 cannula 02/27 2000 98.1 61 17 121/78 92.2 91 02/26 1920 92 Nasal 5 cannula 02/26 1604 98.4 60 18 119/71 87.0 100 02/26 1042 5 PATIENT WEIGHT: Weight (lb): 247 Weight (oz): 12.79 Weight (kg): 112.400 Medications: Active Meds + DC'd Last 24 Hrs Acetaminophen/Codeine Phosphate (TYLENOL W CODEINE NO.3) 1 TAB ONCE ONE PO (DC) Enoxaparin Sodium (LOVENOX) 40 MG Q24H SUBQ Insulin Human Lispro (HumaLOG 100 UNITS/ML) 0 AC HS SUBQ Dextrose/Water (DEXTROSE 10%) 125 ML ASDIR PRN IV (CKD) Dextrose/Water (DEXTROSE 10%) 250 ML ASDIR PRN IV (CKD) Glucagon (GLUCAGON) 1 MG ASDIR PRN IM Atorvastatin Calcium (Lipitor) 80 MG BEDTIME PO Calcium Gluconate (Calcium Gluconate 1 GM/NS 50 mL (B2)) 50 ML ASDIR PRN IV Calcium Gluconate (Calcium Gluconate 1 GM/NS 50 mL (B2)) 50 ML ASDIR PRN IV Magnesium Sulfate (MAGNESIUM SULF 2 GM/SWI 50 ML) 50 ML ASDIR PRN IV Potassium Chloride (POTASSIUM CHLORIDE 20 MEQ/100 ML PREMIX) 100 ML ASDIR PRN IV Potassium Chloride (POTASSIUM CHLORIDE 20 MEQ/100 ML PREMIX) 100 ML ASDIR PRN IV Potassium Chloride (POTASSIUM CHLORIDE 20 MEQ/100 ML PREMIX) 100 ML ASDIR PRN IV Potassium Chloride (POTASSIUM CHLORIDE 20 MEQ/100 ML PREMIX) 100 ML ASDIR PRN IV Potassium Phosphate (POTASSIUM PHOSPHATE) 15 MM ASDIR PRN IV (CKD) Sodium Chloride (SODIUM CHLORIDE 0.9%) 100 ML Potassium Phosphate (POTASSIUM PHOSPHATE) 30 MM ASDIR PRN IV (CKD) Sodium Chloride (SODIUM CHLORIDE 0.9%) 250 ML Sodium Phosphate (SODIUM PHOSPHATE) 15 MMOL ASDIR PRN IV Sodium Chloride (SODIUM CHLORIDE 0.9%) 100 ML Sodium Phosphate (SODIUM PHOSPHATE) 20 MMOL ASDIR PRN IV Sodium Chloride (SODIUM CHLORIDE 0.9%) 250 ML Sodium Phosphate (SODIUM PHOSPHATE) 30 MMOL ASDIR PRN IV Sodium Chloride (SODIUM CHLORIDE 0.9%) 250 ML Albuterol Sulfate (PROVENTIL) 2.5 MG RTBID NEB Lisinopril (PRINIVIL OR ZESTRIL) 2.5 MG DAILY PO Clopidogrel Bisulfate (PLAVIX) 75 MG DAILY PO Glipizide (GLUCOTROL) 10 MG BID AC PO Aspirin (ASPIRIN 81MG CHEW) 81 MG DAILY PO Furosemide (LASIX 40MG INJ) 40 MG BID 9A 5P IV Metoprolol Tartrate (LOPRESSOR) 25 MG Q12H PO Mupirocin (BACTROBAN 2% 22 GM OINT) 1 APPLIC BID NASAL (DC) Acetaminophen/Codeine Phosphate (TYLENOL W CODEINE NO.3) 1 TAB Q4H PRN PRN PO (DC) Fluticasone Propionate (FLONASE NASAL SPRAY) 1 SPRAY DAILY PRN PRN NASAL (CKD) Loratadine (CLARITIN) 10 MG DAILY PO Physical Exam General appearance: alert, awake Head/Eyes: atraumatic ENT: moist mucosal membranes Neck: no JVD Cardiovascular: CV assessment: regular rate and rhythm Respiratory: on oxygen, no distress Lower extremity: LE assessment: edema (improved) Diagnosis, Assessment Plan Free Text DxA P Notes Free Text DxA P Notes: Device interrogation: 02/23/24 Ap:6% BIVP:92% RA:2.4/709/1.3@0.4 RV:4.3/380/(39)/0.9@0.4 LV:14.4/575/2.5@0.4 1x NSVT on 02/23/24 - 16 secs w/ avg V rate @160bpm Heart logic score is 11 1. Acute on chronic CHF exacerbation: Agree with more aggressive diuresis and more afterload reduction with beta-blockers, GABE inhibitors and consideration of agents like Entresto, Jardiance, spironolactone as allowed by blood pressure and volume status and renal function readings.Echo w/ EF 45-49%, grade 2 diastolic dysfunction. 2. CAD: s/p stents. Home meds. 3. Acute respiratory failure: per pulm 4. Hypertension: Controlled Ok to d/c POC discussed w/ Steffanie Ahn 03/23/24 2339: Attestations Physician Attestation Agree w/findings plan: I have seen and examined the patient at bedside. I have reviewed the relevant test results and formulated the assessment and plan. I agree with the note by TABLE COVER FOLDER. at 1037 at 2345 RPT #:[id number] END OF REPORT [facility] 2024-02-27 14:37:00 [facility] ([facility] Hospitalist Progress Note REPORT#:[id number] REPORT STATUS: Signed REPORT INITIALIZATION DATE:02/27/24 TIME: 1436 PATIENT: WILLI MERRITT UNIT #: [id number] ROOM/BED: [place] [id number] : 52 AGE: 73 SEX: M ATTEND: Lauro Lane MD ADM AUTHOR: Lisa Layton MD REPT SERVICE DT/TIME: 02/27/24 5787 * ALL edits or amendments must be made on the electronic/computer document * Subjective Chief complaint: demanding to leave but not able to get a hold of sister allgedly. Vulgar comments to me and nursing of a sexual nature. On 8L. ROS negative Objective General VS/I O: Vital Signs: Date Time Temp Pulse Resp B/P B/P Pulse O2 O2 Flow FiO2 Mean Ox Delivery Rate 02/26 1042 5 02/26 0803 36.7 79 19 133/72 92.1 92 02/26 0711 96 Nasal 5 cannula 02/26 0008 36.5 68 20 101/67 78.5 100 02/25 2209 99 Nasal 9 cannula 02/25 2130 Nasal 9 cannula 02/26 2016 36.2 73 22 103/52 69.1 99 Nasal 9 cannula 02/25 1528 36.6 63 16 138/81 100.0 97 24 hour I O ending at 0700: 02/26 0700 02/25 1900 Intake Total 250 Output Total Balance 250 Intake, Oral 250 PATIENT WEIGHT: Weight (lb): 247 Weight (oz): 12.79 Weight (kg): 112.400 Medications: Active Meds + DC'd Last 24 Hrs Enoxaparin Sodium (LOVENOX) 40 MG Q24H SUBQ Insulin Human Lispro (HumaLOG 100 UNITS/ML) 0 AC HS SUBQ Dextrose/Water (DEXTROSE 10%) 125 ML ASDIR PRN IV (CKD) Dextrose/Water (DEXTROSE 10%) 250 ML ASDIR PRN IV (CKD) Glucagon (GLUCAGON) 1 MG ASDIR PRN IM Atorvastatin Calcium (Lipitor) 80 MG BEDTIME PO Calcium Gluconate (Calcium Gluconate 1 GM/NS 50 mL (B2)) 50 ML ASDIR PRN IV Calcium Gluconate (Calcium Gluconate 1 GM/NS 50 mL (B2)) 50 ML ASDIR PRN IV Magnesium Sulfate (MAGNESIUM SULF 2 GM/SWI 50 ML) 50 ML ASDIR PRN IV Potassium Chloride (POTASSIUM CHLORIDE 20 MEQ/100 ML PREMIX) 100 ML ASDIR PRN IV Potassium Chloride (POTASSIUM CHLORIDE 20 MEQ/100 ML PREMIX) 100 ML ASDIR PRN IV Potassium Chloride (POTASSIUM CHLORIDE 20 MEQ/100 ML PREMIX) 100 ML ASDIR PRN IV Potassium Chloride (POTASSIUM CHLORIDE 20 MEQ/100 ML PREMIX) 100 ML ASDIR PRN IV Potassium Phosphate (POTASSIUM PHOSPHATE) 15 MM ASDIR PRN IV (CKD) Sodium Chloride (SODIUM CHLORIDE 0.9%) 100 ML Potassium Phosphate (POTASSIUM PHOSPHATE) 30 MM ASDIR PRN IV (CKD) Sodium Chloride (SODIUM CHLORIDE 0.9%) 250 ML Sodium Phosphate (SODIUM PHOSPHATE) 15 MMOL ASDIR PRN IV Sodium Chloride (SODIUM CHLORIDE 0.9%) 100 ML Sodium Phosphate (SODIUM PHOSPHATE) 20 MMOL ASDIR PRN IV Sodium Chloride (SODIUM CHLORIDE 0.9%) 250 ML Sodium Phosphate (SODIUM PHOSPHATE) 30 MMOL ASDIR PRN IV Sodium Chloride (SODIUM CHLORIDE 0.9%) 250 ML Albuterol Sulfate (PROVENTIL) 2.5 MG RTBID NEB Lisinopril (PRINIVIL OR ZESTRIL) 2.5 MG DAILY PO Clopidogrel Bisulfate (PLAVIX) 75 MG DAILY PO Glipizide (GLUCOTROL) 10 MG BID AC PO Aspirin (ASPIRIN 81MG CHEW) 81 MG DAILY PO Furosemide (LASIX 40MG INJ) 40 MG BID 9A 5P IV Metoprolol Tartrate (LOPRESSOR) 25 MG Q12H PO Mupirocin (BACTROBAN 2% 22 GM OINT) 1 APPLIC BID NASAL Acetaminophen/Codeine Phosphate (TYLENOL W CODEINE NO.3) 1 TAB Q4H PRN PRN PO Fluticasone Propionate (FLONASE NASAL SPRAY) 1 SPRAY DAILY PRN PRN NASAL (CKD) Loratadine (CLARITIN) 10 MG DAILY PO Dietitian nutrition assessment The data set between the solid lines has been imported from the dietitian's assessment. BMI Calculated: 35.6 Nutrition related diagnosis: Nutrition diagnosis details: Nutrition problem: Nutrition etiology: Nutrition signs and symptoms: Nutrition prescription: Dietitian name: Assessment completed: Results Findings/Data: Laboratory Tests 02/26 02/26 02/25 0800 0449 2014 Chemistry Sodium (134.0 - 147.0 mmol/l) 140 Potassium (3.6 - 5.2 mmol/L) 4.0 Chloride (98.0 - 107.0 mmol/l) 97 L Carbon Dioxide (21.0 - 33.0 mmol/l) 37.8 H Anion Gap (0 - 20) 9.2 BUN (7.0 - 18.0 mg/dl) 24 H Creatinine (0.60 - 1.30 mg/dL) 1.18 Estimated Creat Clear (>30 mL/min) 59 Glomerular Filtr Rate (mL/min) 66 Glucose (70.0 - 110.0 mg/dl) 118 H POC Glucose (70 - 110 mg/dL) 83 151 H Calcium (8.0 - 10.5 mg/dl) 8.6 Laboratory Tests 02/26 0449 Hematology WBC (4.5 - 11.0 K/mm3) 7.2 RBC (4.40 - 5.90 M/mm3) 3.80 L Hgb (13.0 - 17.0 gm/dL) 10.5 L Hct (36.0 - 48.0 %) 36.6 MCV (80.0 - 94.0 UM3) 96.3 H MCH (25.5 - 32.5 UUG) 27.6 MCHC (29.0 - 35.5 gm/dL) 28.7 L RDW (11.5 - 15.0 %) 19.6 H Plt Count (150 - 400 K/mm3) 183 MPV (7.4 - 10.4 fl) 11.3 H Neut % (Auto) (49.0 - 76.0 %) 71.9 Lymph % (Auto) (23.0 - 38.0 %) 15.7 L [place] % (Auto) (1.0 - 10.0 %) 9.7 Eos % (Auto) (1.0 - 5.0 %) 1.9 Baso % (Auto) (0.0 - 1.0 %) 0.4 Neut # (Auto) (2.4 - 6.3 K/mm3) 5.2 Lymph # (Auto) (1.2 - 4.0 K/mm3) 1.1 L [place] # (Auto) (0.0 - 0.6 K/mm3) 0.7 H Eos # (Auto) (0.0 - 0.7 K/MM3) 0.1 Baso # (Auto) (0.0 - 0.2 K/mm3) 0.0 Absolute Nucleated RBC (0.00 - 0.01 X10 3uL) 0.00 Immature Gran % (0.0 - 0.4 %) 0.4 Nucleated RBC % (0.0 - 0.1 %) 0.0 Immature Gran # (0.00 - 0.07 x10 3/uL) 0.03 Free Text Obj Notes Free Text Obj Notes: PHYSICAL EXAMINATION General appearance: alert, awake, no acute distress Head/Eyes: atraumatic, normocephalic, PERRL, EOMI ENT: normal ear left, normal ear right, normal nose, normal pharynx Neck: full range of motion, supple/no meningismus Cardiovascular: normal S1/S2, regular rate rhythm Respiratory/chest: Decreased breath sounds bilaterally Abdomen: soft, non-tender, normal bowel sounds Genitourinary: deferred Extremities: moves all, no clubbing, no cyanosis, no edema Musculoskeletal: full range of motion, normal inspection Neuro/HAND STONER alert, oriented X 3, CNII-XII intact Skin: dry, intact Psychiatry: normal affect, normal judgment/insight, normal mood Diagnosis, Assessment Plan Free Text DxA P Notes Free text DxA P notes: Acute on chronic hypoxic respiratory failure Nasal cannula oxygen ICU monitoring S/p BiPAP Improving Acute on chronic systolic CHF with exacerbation. Ran out of Lasix 4 days ago Continue IV diuresis Goal-directed medical therapy Cardiology consult Troponin negative ----Prior echo in April 2023 with EF 35 to 39% LEELA on CKD stage III Monitor creatinine with diuresis and consult nephrology if worsening diabetes mellitus type 2 Continue home meds and adjust as needed Hypertension Continue home meds Coronary artery disease status post stents, continue home meds Lovenox for DVT prophylaxis 02/25/24 --- Acute on chronic hypoxic respiratory failure on 10 L nasal cannula wean as tolerated s/p ICU on BiPAP --- Acute on chronic systolic heart failure IV diuresis cardiology follow-up EF 35 to 39% --- LEELA on CKD stage III creatinine stable 1.4 1.3- 1.2 ---Diabetes mellitus type 2 --blood sugars acceptable --- Hypertension --monitor for low blood pressure --- Other comorbidities coronary artery disease cardiac stents VTE prophylax Lovenox Wean oxygen as tolerated -- on 10 L says he uses 8 L at home Patient wants to go home Discussed with Dr. Santos monitor on Wednesday --for possible discharge in a.m. at 1438 RPT #:[id number] END OF REPORT [facility] 2024-02-27 13:08:00 [facility] ([facility] Pulmonology Progress Note REPORT#:[id number] REPORT STATUS: Signed REPORT INITIALIZATION DATE:02/27/24 TIME: 1308 PATIENT: WILLI MERRITT UNIT #: [id number] ROOM/BED: [place] [id number] : 52 AGE: 73 SEX: M ATTEND: Lauro Lane MD ADM AUTHOR: Skip Santos MD REPT SERVICE DT/TIME: 02/27/24 1308 * ALL edits or amendments must be made on the electronic/computer document * Subjective Chief complaint: SOB Comments: Awaiting discharge Shortness of breath near baseline ROS: no nausea/vomitting or chest pain Objective General VS/I O: Last Documented: Result Date Time Pulse Ox 92 02/26 0803 B/P 133/72 02/26 0803 B/P Mean 92.1 02/26 0803 Temp 98.1 02/26 0803 Pulse 79 02/26 0803 Resp 19 02/26 0803 O2 Delivery Nasal cannula 02/26 0711 O2 Flow Rate 5 02/26 0711 FiO2 99 02/25 0639 24 hour I O ending at 0700: 02/25 1900 02/26 0700 Intake Total 250 Output Total Balance 250 Intake, Oral 250 PATIENT WEIGHT: Weight (lb): 247 Weight (oz): 12.79 Weight (kg): 112.400 Physical Exam General appearance: chronically ill appearing Head/eyes: atraumatic, normocephalic, PERRL, EOMI, clear cornea, normal conjunctiva/sclera, normal fundi, normal eyelids/periorb. ENT: ENT: normal dentition, normal ear left, normal ear right, normal nose, normal pharynx, normal sinus Neck: full range of motion, non-tender, normal thyroid, supple/no meningismus, no bruit/NL carotids, no JVD, no lymphadenopathy, no masses or swelling Cardiovascular: regular rate rhythm Respiratory/chest: crackles, dullness to percussion Abdomen: soft, non-tender, no distention, no guarding, no mass/organomegaly, no rebound Extremities: edema, moves all Musculoskeletal: full range of motion, normal inspection Neuro/HAND STONER: alert, oriented X 3 Skin: dry, intact Lymphatics: axilla normal, inguinal normal, neck normal, no lymphadenopathy Psychiatry: normal affect, normal judgment/insight, normal mood, not homicidal, not suicidal, no hallucinations Results Findings/Data: Laboratory Tests 02/27/24448: [Embedded Image Not Available] Laboratory Tests 02/25 0800 Chemistry Sodium (134.0 - 147.0 mmol/l) 140 Potassium (3.6 - 5.2 mmol/L) 4.0 Chloride (98.0 - 107.0 mmol/l) 97 L Carbon Dioxide (21.0 - 33.0 mmol/l) 37.8 H Anion Gap (0 - 20) 9.2 BUN (7.0 - 18.0 mg/dl) 24 H Creatinine (0.60 - 1.30 mg/dL) 1.18 Estimated Creat Clear (>30 mL/min) 59 Glomerular Filtr Rate (mL/min) 66 Glucose (70.0 - 110.0 mg/dl) 118 H POC Glucose (70 - 110 mg/dL) 151 H 83 Calcium (8.0 - 10.5 mg/dl) 8.6 Laboratory Tests 02/26 449 Hematology WBC (4.5 - 11.0 K/mm3) 7.2 RBC (4.40 - 5.90 M/mm3) 3.80 L Hgb (13.0 - 17.0 gm/dL) 10.5 L Hct (36.0 - 48.0 %) 36.6 MCV (80.0 - 94.0 UM3) 96.3 H MCH (25.5 - 32.5 UUG) 27.6 MCHC (29.0 - 35.5 gm/dL) 28.7 L RDW (11.5 - 15.0 %) 19.6 H Plt Count (150 - 400 K/mm3) 183 MPV (7.4 - 10.4 fl) 11.3 H Neut % (Auto) (49.0 - 76.0 %) 71.9 Lymph % (Auto) (23.0 - 38.0 %) 15.7 L [place] % (Auto) (1.0 - 10.0 %) 9.7 Eos % (Auto) (1.0 - 5.0 %) 1.9 Baso % (Auto) (0.0 - 1.0 %) 0.4 Neut # (Auto) (2.4 - 6.3 K/mm3) 5.2 Lymph # (Auto) (1.2 - 4.0 K/mm3) 1.1 L [place] # (Auto) (0.0 - 0.6 K/mm3) 0.7 H Eos # (Auto) (0.0 - 0.7 K/MM3) 0.1 Baso # (Auto) (0.0 - 0.2 K/mm3) 0.0 Absolute Nucleated RBC (0.00 - 0.01 X10 3uL) 0.00 Immature Gran % (0.0 - 0.4 %) 0.4 Nucleated RBC % (0.0 - 0.1 %) 0.0 Immature Gran # (0.00 - 0.07 x10 3/uL) 0.03 Diagnosis, Assessment Plan Free Text A P: 1. Acute on chronic hypoxemic respiratory failure O2 via high flow nasal cannula Wean to baseline of 6 L/min as tolerated Worsened related to pulmonary edema remains hypoxic but has 10L concentrator and he is demanding discharge 2. CHF exacerbation Continue IV Lasix Cardiology following Follow chest x-ray Echo noted from previous 3. DIANNE/OHS Patient reports having inconsistently using home CPAP Will continue to use BiPAP nightly and as needed while hospitalized 4. Acute kidney injury with chronic kidney disease? Continue to follow BUN and creatinine May improve with diuresis 5. Hypokalemia Replace plan for d/c discussed compliance with medications at 1311 RPT #:[id number] END OF REPORT [facility] 2024-02-27 11:16:00 [facility] ([facility]) Hospitalist Discharge Summary REPORT#:[id number] REPORT STATUS: Signed REPORT INITIALIZATION DATE:02/27/24 TIME: 1115 PATIENT: WILLI MERRITT UNIT #: [id number] ROOM/BED: [place] [id number] : 52 AGE: 73 SEX: M ATTEND: Lauro Lane MD ADM AUTHOR: Lisa Layton MD REPT SERVICE DT/TIME: 02/27/24 1116 * ALL edits or amendments must be made on the electronic/computer document * General Information Date of admission: Observation Start Date: Date of admission: 02/22/24 Discharge date: 02/27/24 Discharge diagnosis: acute hypoxemic respiratory failure Hospital course: Acute on chronic hypoxic respiratory failure Nasal cannula oxygen ICU monitoring S/p BiPAP Improving Acute on chronic systolic CHF with exacerbation. Ran out of Lasix 4 days ago Continue IV diuresis Goal-directed medical therapy Cardiology consult Troponin negative ----Prior echo in April 2023 with EF 35 to 39% LEELA on CKD stage III Monitor creatinine with diuresis and consult nephrology if worsening diabetes mellitus type 2 Continue home meds and adjust as needed Hypertension Continue home meds Coronary artery disease status post stents, continue home meds Lovenox for DVT prophylaxis 02/25/24 --- Acute on chronic hypoxic respiratory failure on 10 L nasal cannula wean as tolerated s/p ICU on BiPAP --- Acute on chronic systolic heart failure IV diuresis cardiology follow-up EF 35 to 39% --- LEELA on CKD stage III creatinine stable 1.4 1.3- 1.2 ---Diabetes mellitus type 2 --blood sugars acceptable --- Hypertension --monitor for low blood pressure --- Other comorbidities coronary artery disease cardiac stents VTE prophylax Lovenox Wean oxygen as tolerated -- on 10 L says he uses 8 L at home Patient wants to go home Pt. condition on discharge: improved Allergies: Allergies: No Known Allergies (Coded, 12/23/21) Med Rec Med Rec Discharge meds: Continue taking these medications: INSULIN ASPART (NovoLOG CARTRIDGE (15mL)) (Unknown Strength) CARTRIDGE 16 UNITS SUBCUTANEOUS BEFORE BREAKFAST. METOPROLOL TARTRATE (LOPRESSOR) 50 MG TAB 25 MILLIGRAM ORAL EVERY 12 HOURS. Qty = 60 ATORVASTATIN (LIPITOR) 80 MG TAB 80 MILLIGRAM ORAL DAILY. Qty = 30 IBUPROFEN (MOTRIN) 800 MG TAB 800 MILLIGRAM ORAL EVERY 8 HR NEEDED. as needed for PAIN glipiZIDE (GLUCOTROL) 10 MG TAB 10 MILLIGRAM ORAL TWICE DAILY. ACETAMINOPHEN/CODEINE (TYLENOL WITH CODEINE #3 300/30 MG) 300 MG-30 MG TAB 1 TABLET ORAL EVERY 4 HOURS NEEDED. as needed for ACUTE PAIN FUROSEMIDE (LASIX) 80 MG TAB 40 MILLIGRAM ORAL TWICE DAILY. ALBUTEROL (VENTOLIN HFA 90 MCG/ACT 18 GM) 90 MCG INHALER 1 PUFF INHALATION TWICE DAILY. ASPIRIN (ASPIRIN) 81 MG TAB.CHEW 81 MILLIGRAM ORAL DAILY. Days = 90 Qty = 90 CLOPIDOGREL (PLAVIX) 75 MG TAB 75 MILLIGRAM ORAL DAILY. Days = 90 Qty = 90 LISINOPRIL (ZESTRIL) 2.5 MG TAB 2.5 MILLIGRAM ORAL DAILY. Days = 30 Qty = 30 Start taking the following new medications: LORATADINE (CLARITIN) 10 MG TAB 10 MILLIGRAM ORAL DAILY. Qty = 30 No Refills Objective VS/I O Last Documented: Result Date Time Pulse Ox 92 02/26 08 B/P 133/72 02/26 0803 B/P Mean 92.1 02/26 0803 Temp 36.7 02/26 0803 Pulse 79 02/26 0803 Resp 19 02/26 0803 O2 Delivery Nasal cannula 02/26 0711 O2 Flow Rate 5 02/26 0711 FiO2 99 02/25 0639 24 hour I O ending at 0700: 02/26 0700 02/25 1900 Intake Total 250 Output Total Balance 250 Intake, Oral 250 Results Findings/Data: Laboratory Tests: 02/26 02/26 02/25 08448 Chemistry Sodium (134.0 - 147.0 mmol/l) 140 Potassium (3.6 - 5.2 mmol/L) 4.0 Chloride (98.0 - 107.0 mmol/l) 97 L Carbon Dioxide (21.0 - 33.0 mmol/l) 37.8 H Anion Gap (0 - 20) 9.2 BUN (7.0 - 18.0 mg/dl) 24 H Creatinine (0.60 - 1.30 mg/dL) 1.18 Estimated Creat Clear (>30 mL/min) 59 Glomerular Filtr Rate (mL/min) 66 Glucose (70.0 - 110.0 mg/dl) 118 H POC Glucose (70 - 110 mg/dL) 83 151 H Calcium (8.0 - 10.5 mg/dl) 8.6 Hematology WBC (4.5 - 11.0 K/mm3) 7.2 RBC (4.40 - 5.90 M/mm3) 3.80 L Hgb (13.0 - 17.0 gm/dL) 10.5 L Hct (36.0 - 48.0 %) 36.6 MCV (80.0 - 94.0 UM3) 96.3 H MCH (25.5 - 32.5 UUG) 27.6 MCHC (29.0 - 35.5 gm/dL) 28.7 L RDW (11.5 - 15.0 %) 19.6 H Plt Count (150 - 400 K/mm3) 183 MPV (7.4 - 10.4 fl) 11.3 H Neut % (Auto) (49.0 - 76.0 %) 71.9 Lymph % (Auto) (23.0 - 38.0 %) 15.7 L [place] % (Auto) (1.0 - 10.0 %) 9.7 Eos % (Auto) (1.0 - 5.0 %) 1.9 Baso % (Auto) (0.0 - 1.0 %) 0.4 Neut # (Auto) (2.4 - 6.3 K/mm3) 5.2 Lymph # (Auto) (1.2 - 4.0 K/mm3) 1.1 L [place] # (Auto) (0.0 - 0.6 K/mm3) 0.7 H Eos # (Auto) (0.0 - 0.7 K/MM3) 0.1 Baso # (Auto) (0.0 - 0.2 K/mm3) 0.0 Absolute Nucleated RBC (0.00 - 0.01 X10 3uL) 0.00 Immature Gran % (0.0 - 0.4 %) 0.4 Nucleated RBC % (0.0 - 0.1 %) 0.0 Immature Gran # (0.00 - 0.07 x10 3/uL) 0.03 Free Text Obj Notes Free Text Obj Notes: PHYSICAL EXAMINATION General appearance: alert, awake, no acute distress Head/Eyes: atraumatic, normocephalic, PERRL, EOMI ENT: normal ear left, normal ear right, normal nose, normal pharynx Neck: full range of motion, supple/no meningismus Cardiovascular: normal S1/S2, regular rate rhythm Respiratory/chest: Decreased breath sounds bilaterally Abdomen: soft, non-tender, normal bowel sounds Genitourinary: deferred Extremities: moves all, no clubbing, no cyanosis, no edema Musculoskeletal: full range of motion, normal inspection Neuro/HAND STONER alert, oriented X 3, CNII-XII intact Skin: dry, intact Psychiatry: normal affect, normal judgment/insight, normal mood Discharge Instructions PCP PCP follow-up: PCP: Harrison Alvarez III, MD Discharge to: Home/Self Care Additional Discharge Routines: PCP Follow-Up, Cook Fruit Follow-Up Diet: Resume Home Diet/Feeds Activity: Resume Normal Activity Discharge management: greater than 30 mins, face to face encounter Follow-up Appointments PCP follow-up: PCP: Harrison Alvarez III, MD PCP follow up timeframe: In 1-2 weeks Attending Physician: Attending Physician: Lauro Lane MD Consulting provider 1: Provider 1: Dakota Melgar MD Specialty: Pulmonary Disease Consult follow up timeframe: In 1-2 weeks at 1117 [facility] #:[id number] END OF REPORT [facility] 2024-02-27 08:09:00 [facility] ([facility] Cardiology Progress Note REPORT#:[id number] REPORT STATUS: Signed REPORT INITIALIZATION DATE:02/27/24 TIME: 808 PATIENT: WILLI MERRITT UNIT #: [id number] ROOM/BED: [facility] : 54 AGE: 73 SEX: M ATTEND: Lauro Lane MD ADM AUTHOR: Mina Martínez MD REPT SERVICE DT/TIME: 02/27/24 0809 * ALL edits or amendments must be made on the electronic/computer document * Subjective Chief complaint: Pt notes SOB is improved Objective General VS/I O: 24 hour I O ending at 0700: 02/26 0700 02/25 1900 Intake Total 250 Output Total Balance 250 Intake, Oral 250 Vital Signs: Date Time Temp Pulse Resp B/P B/P Pulse O2 O2 Flow FiO2 Mean Ox Delivery Rate 02/27 0803 36.7 79 19 133/72 92.1 92 02/26 0008 36.5 68 20 101/67 78.5 100 02/25 2209 99 Nasal 9 cannula 02/250 Nasal 9 cannula 02/26 2016 36.2 73 22 103/52 69.1 99 Nasal 9 cannula 02/25 1528 36.6 63 16 138/81 100.0 97 02/25 1102 36.4 57 16 103/63 76.1 94 02/25 1053 Nasal 9 cannula PATIENT WEIGHT: Weight (lb): 247 Weight (oz): 12.79 Weight (kg): 112.400 Physical Exam General appearance: alert, awake Head/Eyes: atraumatic ENT: moist mucosal membranes Neck: no JVD Cardiovascular: CV assessment: regular rate and rhythm Respiratory: on oxygen, no distress Lower extremity: LE assessment: edema Results Findings/Data: Laboratory Tests 02/26 Chemistry Sodium (134.0 - 147.0 mmol/l) 140 Potassium (3.6 - 5.2 mmol/L) 4.0 Chloride (98.0 - 107.0 mmol/l) 97 L Carbon Dioxide (21.0 - 33.0 mmol/l) 37.8 H Anion Gap (0 - 20) 9.2 BUN (7.0 - 18.0 mg/dl) 24 H Creatinine (0.60 - 1.30 mg/dL) 1.18 Estimated Creat Clear (>30 mL/min) 59 Glomerular Filtr Rate (mL/min) 66 Glucose (70.0 - 110.0 mg/dl) 118 H POC Glucose (70 - 110 mg/dL) 151 H 192 H Calcium (8.0 - 10.5 mg/dl) 8.6 Laboratory Tests 02/26 449 Hematology WBC (4.5 - 11.0 K/mm3) 7.2 RBC (4.40 - 5.90 M/mm3) 3.80 L Hgb (13.0 - 17.0 gm/dL) 10.5 L Hct (36.0 - 48.0 %) 36.6 MCV (80.0 - 94.0 UM3) 96.3 H MCH (25.5 - 32.5 UUG) 27.6 MCHC (29.0 - 35.5 gm/dL) 28.7 L RDW (11.5 - 15.0 %) 19.6 H Plt Count (150 - 400 K/mm3) 183 MPV (7.4 - 10.4 fl) 11.3 H Neut % (Auto) (49.0 - 76.0 %) 71.9 Lymph % (Auto) (23.0 - 38.0 %) 15.7 L Florence % (Auto) (1.0 - 10.0 %) 9.7 Eos % (Auto) (1.0 - 5.0 %) 1.9 Baso % (Auto) (0.0 - 1.0 %) 0.4 Neut # (Auto) (2.4 - 6.3 K/mm3) 5.2 Lymph # (Auto) (1.2 - 4.0 K/mm3) 1.1 L [place] # (Auto) (0.0 - 0.6 K/mm3) 0.7 H Eos # (Auto) (0.0 - 0.7 K/MM3) 0.1 Baso # (Auto) (0.0 - 0.2 K/mm3) 0.0 Absolute Nucleated RBC (0.00 - 0.01 X10 3uL) 0.00 Immature Gran % (0.0 - 0.4 %) 0.4 Nucleated RBC % (0.0 - 0.1 %) 0.0 Immature Gran # (0.00 - 0.07 x10 3/uL) 0.03 Diagnosis, Assessment Plan Free Text DxA P Notes Free Text DxA P Notes: Device interrogation: 02/23/24 Ap:6% BIVP:92% RA:2.4/709/1.3@0.4 RV:4.3/380/(39)/0.9@0.4 LV:14.4/575/2.5@0.4 1x NSVT on 02/23/24 - 16 secs w/ avg V rate @160bpm Heart logic score is 11 1. Acute on chronic CHF exacerbation: Agree with more aggressive diuresis and more afterload reduction with beta-blockers, GABE inhibitors and consideration of agents like Entresto, Jardiance, spironolactone as allowed by blood pressure and volume status and renal function readings.Echo w/ EF 45-49%, grade 2 diastolic dysfunction. 2. CAD: s/p stents. Home meds. 3. Acute respiratory failure: per pulm 4. Hypertension: Controlled at 0810 [facility] #:[id number] END OF REPORT [facility] 2024-02-26 17:17:00 [facility] ([facility]) Hospitalist Progress Note REPORT#:[id number] REPORT STATUS: Signed REPORT INITIALIZATION DATE:02/26/24 TIME: 1716 PATIENT: WILLI MERRITT UNIT #: [id number] ROOM/BED: [place] [id number] : 52 AGE: 73 SEX: M ATTEND: Lauro Lane MD ADM AUTHOR: Lisa Layton MD REPT SERVICE DT/TIME: 02/26/241716 * ALL edits or amendments must be made on the electronic/computer document * Subjective Chief complaint: Shortness of breath On 10 L oxygen Objective Free Text Obj Notes Free Text Obj Notes: PHYSICAL EXAMINATION General appearance: alert, awake, no acute distress Head/Eyes: atraumatic, normocephalic, PERRL, EOMI ENT: normal ear left, normal ear right, normal nose, normal pharynx Neck: full range of motion, supple/no meningismus Cardiovascular: normal S1/S2, regular rate rhythm Respiratory/chest: Decreased breath sounds bilaterally Abdomen: soft, non-tender, normal bowel sounds Genitourinary: deferred Extremities: moves all, no clubbing, no cyanosis, no edema Musculoskeletal: full range of motion, normal inspection Neuro/HAND STONER alert, oriented X 3, CNII-XII intact Skin: dry, intact Psychiatry: normal affect, normal judgment/insight, normal mood Diagnosis, Assessment Plan Free Text DxA P Notes Free text DxA P notes: Acute on chronic hypoxic respiratory failure Nasal cannula oxygen ICU monitoring S/p BiPAP Improving Acute on chronic systolic CHF with exacerbation. Ran out of Lasix 4 days ago Continue IV diuresis Goal-directed medical therapy Cardiology consult Troponin negative ----Prior echo in April 2023 with EF 35 to 39% LEELA on CKD stage III Monitor creatinine with diuresis and consult nephrology if worsening diabetes mellitus type 2 Continue home meds and adjust as needed Hypertension Continue home meds Coronary artery disease status post stents, continue home meds Lovenox for DVT prophylaxis 02/25/24 --- Acute on chronic hypoxic respiratory failure on 10 L nasal cannula wean as tolerated s/p ICU on BiPAP --- Acute on chronic systolic heart failure IV diuresis cardiology follow-up EF 35 to 39% --- LEELA on CKD stage III creatinine stable 1.4 1.3- 1.2 ---Diabetes mellitus type 2 --blood sugars acceptable --- Hypertension --monitor for low blood pressure --- Other comorbidities coronary artery disease cardiac stents VTE prophylax Lovenox Wean oxygen as tolerated -- on 10 L says he uses 8 L at home Patient wants to go home Discussed with Dr. Santos monitor on Wednesday --for possible discharge in a.m. at 1437 RPT #:[id number] END OF REPORT [facility] 2024-02-26 14:49:00 [facility] ([facility] Cardiology Progress Note REPORT#:[id number] REPORT STATUS: Signed REPORT INITIALIZATION DATE:02/26/24 TIME: 1448 PATIENT: WILLI MERRITT UNIT #: [id number] ROOM/BED: [place] [id number] : 52 AGE: 73 SEX: M ATTEND: Lauro Lane MD ADM AUTHOR: Mina Martínez MD REPT SERVICE DT/TIME: 02/26/24 1449 * ALL edits or amendments must be made on the electronic/computer document * Subjective Chief complaint: Pt notes SOB is improved Objective General VS/I O: 24 hour I O ending at 0700: 02/25 0700 02/24 1900 Intake Total Output Total 550 Balance -550 Output, Urine 550 Vital Signs: Date Time Temp Pulse Resp B/P B/P Pulse O2 O2 Flow FiO2 Mean Ox Delivery Rate 02/25 1102 36.4 57 16 103/63 76.1 94 02/25 1053 Nasal 9 cannula 02/25 0734 36.5 72 16 121/71 87.6 98 02/25 0639 Room air 9 99 02/25 0309 36.6 67 18 105/68 80.5 100 02/25 0144 Nasal 9 cannula 02/24 2334 36.5 71 18 99/63 75.0 97 02/24 2151 37.0 80 18 122/73 89.0 100 02/24 1926 91 Nasal 9 cannula PATIENT WEIGHT: Weight (lb): 247 Weight (oz): 12.79 Weight (kg): 112.400 Physical Exam General appearance: alert, awake, oriented Head/Eyes: atraumatic ENT: moist mucosal membranes Neck: no JVD Cardiovascular: CV assessment: regular rate and rhythm Respiratory: on oxygen, no distress Lower extremity: LE assessment: edema Results Findings/Data: Laboratory Tests 02/25 02/25 02/25 02/25 02/24 1102 0732 0647 0647 2302 Chemistry Sodium (134.0 - 147.0 mmol/l) 141 Potassium (3.6 - 5.2 mmol/L) 4.1 Chloride (98.0 - 107.0 mmol/l) 97 L Carbon Dioxide (21.0 - 33.0 mmol/l) 41.6 *H Anion Gap (0 - 20) 6.5 BUN (7.0 - 18.0 mg/dl) 23 H Creatinine (0.60 - 1.30 mg/dL) 1.24 Estimated Creat Clear (>30 mL/min) 56 Glomerular Filtr Rate (mL/min) 62 Glucose (70.0 - 110.0 mg/dl) 103 POC Glucose (70 - 110 mg/dL) 192 H 116 H 164 H Hemoglobin A1c (4.8 - 6.0 %A1C) 7.9 H Estim Average Glucose (MG/DL) 180 Calcium (8.0 - 10.5 mg/dl) 8.2 02/24 1535 Chemistry POC Glucose (70 - 110 mg/dL) 109 Laboratory Tests 02/25 0647 Hematology WBC (4.5 - 11.0 K/mm3) 7.0 RBC (4.40 - 5.90 M/mm3) 3.83 L Hgb (13.0 - 17.0 gm/dL) 10.6 L Hct (36.0 - 48.0 %) 36.5 MCV (80.0 - 94.0 UM3) 95.3 H MCH (25.5 - 32.5 UUG) 27.7 MCHC (29.0 - 35.5 gm/dL) 29.0 RDW (11.5 - 15.0 %) 19.6 H Plt Count (150 - 400 K/mm3) 179 MPV (7.4 - 10.4 fl) 11.2 H Neut % (Auto) (49.0 - 76.0 %) 72.7 Lymph % (Auto) (23.0 - 38.0 %) 15.6 L Florence % (Auto) (1.0 - 10.0 %) 9.8 Eos % (Auto) (1.0 - 5.0 %) 1.4 Baso % (Auto) (0.0 - 1.0 %) 0.4 Neut # (Auto) (2.4 - 6.3 K/mm3) 5.1 Lymph # (Auto) (1.2 - 4.0 K/mm3) 1.1 L [place] # (Auto) (0.0 - 0.6 K/mm3) 0.7 H Eos # (Auto) (0.0 - 0.7 K/MM3) 0.1 Baso # (Auto) (0.0 - 0.2 K/mm3) 0.0 Absolute Nucleated RBC (0.00 - 0.01 X10 3uL) 0.00 Immature Gran % (0.0 - 0.4 %) 0.1 Nucleated RBC % (0.0 - 0.1 %) 0.0 Immature Gran # (0.00 - 0.07 x10 3/uL) 0.01 Diagnosis, Assessment Plan Free Text DxA P Notes Free Text DxA P Notes: Device interrogation: 02/23/24 Ap:6% BIVP:92% RA:2.4/709/1.3@0.4 RV:4.3/380/(39)/0.9@0.4 LV:14.4/575/2.5@0.4 1x NSVT on 02/23/24 - 16 secs w/ avg V rate @160bpm Heart logic score is 11 1. Acute on chronic CHF exacerbation: Agree with more aggressive diuresis and more afterload reduction with beta-blockers, GABE inhibitors and consideration of agents like Entresto, Jardiance, spironolactone as allowed by blood pressure and volume status and renal function readings.Echo w/ EF 45-49%, grade 2 diastolic dysfunction. 2. CAD: s/p stents. Home meds. 3. Acute respiratory failure: per pulm 4. Hypertension: Controlled at 1450 RPT #:[id number] END OF REPORT [facility] 2024-02-26 13:49:00 [facility] ([facility] Pulmonology Progress Note REPORT#:[id number] REPORT STATUS: Signed REPORT INITIALIZATION DATE:02/26/24 TIME: 1348 PATIENT: WILLI MERRITT UNIT #: [id number] ROOM/BED: [place] [id number] : 52 AGE: 73 SEX: M ATTEND: Lauro Lane MD ADM AUTHOR: Skip Santos MD REPT SERVICE DT/TIME: 02/26/24 1349 * ALL edits or amendments must be made on the electronic/computer document * Subjective Chief complaint: SOB Comments: demanding discharge remains on significant fio2 requirement ROS: no n/v/cp Objective General VS/I O: Last Documented: Result Date Time Pulse Ox 94 02/25 1102 B/P 103/63 02/25 1102 B/P Mean 76.1 02/25 1102 Temp 97.5 02/25 1102 Pulse 57 02/25 1102 Resp 16 02/25 1102 O2 Delivery Nasal cannula 02/25 1053 O2 Flow Rate 9 02/25 1053 FiO2 99 02/25 0639 24 hour I O ending at 0700: 02/24 1900 02/25 0700 Intake Total Output Total 550 Balance -550 Output, Urine 550 PATIENT WEIGHT: Weight (lb): 247 Weight (oz): 12.79 Weight (kg): 112.400 Physical Exam General appearance: chronically ill appearing Head/eyes: atraumatic, normocephalic, PERRL, EOMI, clear cornea, normal conjunctiva/sclera, normal fundi, normal eyelids/periorb. ENT: ENT: normal dentition, normal ear left, normal ear right, normal nose, normal pharynx, normal sinus Neck: full range of motion, non-tender, normal thyroid, supple/no meningismus, no bruit/NL carotids, no JVD, no lymphadenopathy, no masses or swelling Cardiovascular: regular rate rhythm Respiratory/chest: crackles, dullness to percussion Abdomen: soft, non-tender, no distention, no guarding, no mass/organomegaly, no rebound Extremities: edema, moves all Musculoskeletal: full range of motion, normal inspection Neuro/HAND STONER: alert, oriented X 3 Skin: dry, intact Lymphatics: axilla normal, inguinal normal, neck normal, no lymphadenopathy Psychiatry: normal affect, normal judgment/insight, normal mood, not homicidal, not suicidal, no hallucinations Results Findings/Data: Laboratory Tests 02/26/24 0647: [Embedded Image Not Available] Laboratory Tests 02/24 02/24 02/25 02/25 02/25 1535 2302 0647 0647 0732 Chemistry Sodium (134.0 - 147.0 mmol/l) 141 Potassium (3.6 - 5.2 mmol/L) 4.1 Chloride (98.0 - 107.0 mmol/l) 97 L Carbon Dioxide (21.0 - 33.0 mmol/l) 41.6 *H Anion Gap (0 - 20) 6.5 BUN (7.0 - 18.0 mg/dl) 23 H Creatinine (0.60 - 1.30 mg/dL) 1.24 Estimated Creat Clear (>30 mL/min) 56 Glomerular Filtr Rate (mL/min) 62 Glucose (70.0 - 110.0 mg/dl) 103 POC Glucose (70 - 110 mg/dL) 109 164 H 116 H Hemoglobin A1c (4.8 - 6.0 %A1C) 7.9 H Estim Average Glucose (MG/DL) 180 Calcium (8.0 - 10.5 mg/dl) 8.2 02/25 1102 Chemistry POC Glucose (70 - 110 mg/dL) 192 H Laboratory Tests 02/25 0647 Hematology WBC (4.5 - 11.0 K/mm3) 7.0 RBC (4.40 - 5.90 M/mm3) 3.83 L Hgb (13.0 - 17.0 gm/dL) 10.6 L Hct (36.0 - 48.0 %) 36.5 MCV (80.0 - 94.0 UM3) 95.3 H MCH (25.5 - 32.5 UUG) 27.7 MCHC (29.0 - 35.5 gm/dL) 29.0 RDW (11.5 - 15.0 %) 19.6 H Plt Count (150 - 400 K/mm3) 179 MPV (7.4 - 10.4 fl) 11.2 H Neut % (Auto) (49.0 - 76.0 %) 72.7 Lymph % (Auto) (23.0 - 38.0 %) 15.6 L Florence % (Auto) (1.0 - 10.0 %) 9.8 Eos % (Auto) (1.0 - 5.0 %) 1.4 Baso % (Auto) (0.0 - 1.0 %) 0.4 Neut # (Auto) (2.4 - 6.3 K/mm3) 5.1 Lymph # (Auto) (1.2 - 4.0 K/mm3) 1.1 L [place] # (Auto) (0.0 - 0.6 K/mm3) 0.7 H Eos # (Auto) (0.0 - 0.7 K/MM3) 0.1 Baso # (Auto) (0.0 - 0.2 K/mm3) 0.0 Absolute Nucleated RBC (0.00 - 0.01 X10 3uL) 0.00 Immature Gran % (0.0 - 0.4 %) 0.1 Nucleated RBC % (0.0 - 0.1 %) 0.0 Immature Gran # (0.00 - 0.07 x10 3/uL) 0.01 Diagnosis, Assessment Plan Free Text A P: 1. Acute on chronic hypoxemic respiratory failure O2 via high flow nasal cannula Wean to baseline of 6 L/min as tolerated Worsened related to pulmonary edema remains hypoxic but has 10L concentrator and he is demanding discharge 2. CHF exacerbation Continue IV Lasix Cardiology following Follow chest x-ray Echo noted from previous 3. DIANNE/OHS Patient reports having inconsistently using home CPAP Will continue to use BiPAP nightly and as needed while hospitalized 4. Acute kidney injury with chronic kidney disease? Continue to follow BUN and creatinine May improve with diuresis 5. Hypokalemia Replace plan for d/c discussed compliance with medications at 1350 RPT #:[id number] END OF REPORT [facility] 2024-02-25 17:13:00 [facility] ([facility]) Hospitalist Progress Note REPORT#:[id number] REPORT STATUS: Signed REPORT INITIALIZATION DATE:02/25/24 TIME: 1712 PATIENT: WILLI MERRITT UNIT #: [id number] ROOM/BED: [place] [id number] : 52 AGE: 73 SEX: M ATTEND: Lauro Lane MD ADM AUTHOR: Tricia Schofield MD REPT SERVICE DT/TIME: 02/25/241712 * ALL edits or amendments must be made on the electronic/computer document * Subjective Chief complaint: Shortness of breath On 10 L oxygen Review of Systems Constitutional: Denies: fever. Respiratory: Reports: SOB. Denies: productive cough (sputum). Cardiovascular: Denies: chest pain. GI: Denies: nausea, vomiting. Objective General VS/I O: Laboratory Tests 02/25/24 0453: [Embedded Image Not Available] 02/24/24 0505: [Embedded Image Not Available] Active Meds + DC'd Last 24 Hrs Enoxaparin Sodium (LOVENOX) 40 MG Q24H SUBQ Insulin Human Lispro (HumaLOG 100 UNITS/ML) 0 AC HS SUBQ Dextrose/Water (DEXTROSE 10%) 125 ML ASDIR PRN IV (CKD) Dextrose/Water (DEXTROSE 10%) 250 ML ASDIR PRN IV (CKD) Glucagon (GLUCAGON) 1 MG ASDIR PRN IM Atorvastatin Calcium (Lipitor) 80 MG BEDTIME PO Calcium Gluconate (Calcium Gluconate 1 GM/NS 50 mL (B2)) 50 ML ASDIR PRN IV Calcium Gluconate (Calcium Gluconate 1 GM/NS 50 mL (B2)) 50 ML ASDIR PRN IV Magnesium Sulfate (MAGNESIUM SULF 2 GM/SWI 50 ML) 50 ML ASDIR PRN IV Potassium Chloride (POTASSIUM CHLORIDE 20 MEQ/100 ML PREMIX) 100 ML ASDIR PRN IV Potassium Chloride (POTASSIUM CHLORIDE 20 MEQ/100 ML PREMIX) 100 ML ASDIR PRN IV Potassium Chloride (POTASSIUM CHLORIDE 20 MEQ/100 ML PREMIX) 100 ML ASDIR PRN IV Potassium Chloride (POTASSIUM CHLORIDE 20 MEQ/100 ML PREMIX) 100 ML ASDIR PRN IV Potassium Phosphate (POTASSIUM PHOSPHATE) 15 MM ASDIR PRN IV (CKD) Sodium Chloride (SODIUM CHLORIDE 0.9%) 100 ML Potassium Phosphate (POTASSIUM PHOSPHATE) 30 MM ASDIR PRN IV (CKD) Sodium Chloride (SODIUM CHLORIDE 0.9%) 250 ML Sodium Phosphate (SODIUM PHOSPHATE) 15 MMOL ASDIR PRN IV Sodium Chloride (SODIUM CHLORIDE 0.9%) 100 ML Sodium Phosphate (SODIUM PHOSPHATE) 20 MMOL ASDIR PRN IV Sodium Chloride (SODIUM CHLORIDE 0.9%) 250 ML Sodium Phosphate (SODIUM PHOSPHATE) 30 MMOL ASDIR PRN IV Sodium Chloride (SODIUM CHLORIDE 0.9%) 250 ML Albuterol Sulfate (PROVENTIL) 2.5 MG RTBID NEB Lisinopril (PRINIVIL OR ZESTRIL) 2.5 MG DAILY PO Clopidogrel Bisulfate (PLAVIX) 75 MG DAILY PO Glipizide (GLUCOTROL) 10 MG BID AC PO Aspirin (ASPIRIN 81MG CHEW) 81 MG DAILY PO Furosemide (LASIX 40MG INJ) 40 MG BID 9A 5P IV Metoprolol Tartrate (LOPRESSOR) 25 MG Q12H PO Mupirocin (BACTROBAN 2% 22 GM OINT) 1 APPLIC BID NASAL Acetaminophen/Codeine Phosphate (TYLENOL W CODEINE NO.3) 1 TAB Q4H PRN PRN PO Fluticasone Propionate (FLONASE NASAL SPRAY) 1 SPRAY DAILY PRN PRN NASAL (CKD) Loratadine (CLARITIN) 10 MG DAILY PO Microbiology Date/Time Procedure - Status Source Growth 02/22 0048 MRSA Screen - COMP NASAL Recent Impressions-Last 72 Hrs RADIOLOGY - XR CHEST 1 V 02/22 2036 Report Impression - Status: SIGNED Entered: 02/22/2024 210 IMPRESSION: Mild pulmonary vascular congestion. Impression By: [email or web address] - Sunil Evans M.D. RADIOLOGY - XR CHEST 1 V 02/23 3522 Report Impression - Status: SIGNED Entered: 02/24/2024 1044 IMPRESSION: Unchanged signs of mild volume overload. Small right pleural effusion. Impression By: [email or web address] Luis E Humphreys M.D. RADIOLOGY - XR CHEST 1 V 02/24 0617 Report Impression - Status: SIGNED Entered: 02/25/2024 1152 IMPRESSION: 1. Enlarged cardiac silhouette with interstitial pulmonary edema. 2. Small layering right pleural effusion with associated lower lobe airspace disease. LOCATION: [facility] Impression By: [email or web address] - Kashmir Schmidt M.D. Vital Signs: Date Time Temp Pulse Resp B/P B/P Pulse O2 O2 Flow FiO2 Mean Ox Delivery Rate 02/24 1431 98.1 63 22 98/57 70.6 100 02/24 1134 99 Nasal 10 cannula 02/24 0659 97.5 74 20 105/64 77.5 100 02/24 0356 97.7 82 18 110/68 82.3 92 02/23 2243 97.7 77 18 103/60 74.6 99 02/23 1919 91 Nasal 10 cannula 02/23 1905 97.5 78 18 107/68 81.1 100 24 hour I O ending at 0700: 02/24 0700 02/23 1900 Intake Total Output Total 490 1500 Balance -490 -1500 Number 1 Bowel Movements Output, Urine 490 1500 PATIENT WEIGHT: Weight (lb): 247 Weight (oz): 12.79 Weight (kg): 112.400 Free Text Obj Notes Free Text Obj Notes: PHYSICAL EXAMINATION General appearance: alert, awake, no acute distress Head/Eyes: atraumatic, normocephalic, PERRL, EOMI ENT: normal ear left, normal ear right, normal nose, normal pharynx Neck: full range of motion, supple/no meningismus Cardiovascular: normal S1/S2, regular rate rhythm Respiratory/chest: Decreased breath sounds bilaterally Abdomen: soft, non-tender, normal bowel sounds Genitourinary: deferred Extremities: moves all, no clubbing, no cyanosis, no edema Musculoskeletal: full range of motion, normal inspection Neuro/HAND STONER alert, oriented X 3, CNII-XII intact Skin: dry, intact Psychiatry: normal affect, normal judgment/insight, normal mood Diagnosis, Assessment Plan Free Text DxA P Notes Free text DxA P notes: Acute on chronic hypoxic respiratory failure Nasal cannula oxygen ICU monitoring S/p BiPAP Improving Acute on chronic systolic CHF with exacerbation. Ran out of Lasix 4 days ago Continue IV diuresis Goal-directed medical therapy Cardiology consult Troponin negative ----Prior echo in April 2023 with EF 35 to 39% LEELA on CKD stage III Monitor creatinine with diuresis and consult nephrology if worsening diabetes mellitus type 2 Continue home meds and adjust as needed Hypertension Continue home meds Coronary artery disease status post stents, continue home meds Lovenox for DVT prophylaxis 02/25/24 --- Acute on chronic hypoxic respiratory failure on 10 L nasal cannula wean as tolerated s/p ICU on BiPAP --- Acute on chronic systolic heart failure IV diuresis cardiology follow-up EF 35 to 39% --- LEELA on CKD stage III creatinine stable 1.4 1.3- 1.2 ---Diabetes mellitus type 2 --blood sugars acceptable --- Hypertension --monitor for low blood pressure --- Other comorbidities coronary artery disease cardiac stents VTE prophylax Lovenox Wean oxygen as tolerated -- on 10 L says he uses 8 L at home Patient wants to go home Discussed with Dr. Santos monitor on Wednesday --for possible discharge in a.m. at 1716 RPT #:[id number] END OF REPORT [facility] 2024-02-25 12:18:00 [facility] ([facility] Cardiology Progress Note REPORT#:[id number] REPORT STATUS: Signed REPORT INITIALIZATION DATE:02/25/24 TIME: 1217 PATIENT: WILLI MERRITT UNIT #: [id number] ROOM/BED: [place] [id number] : 52 AGE: 73 SEX: M ATTEND: Lauro Lane MD ADM AUTHOR: Brooke Calzada TABLE COVER FOLDER REPT SERVICE DT/TIME: 02/25/24 1218 * ALL edits or amendments must be made on the electronic/computer document * Brooke Calzada 02/25/24 1218: Subjective Chief complaint: sob Objective General VS/I O: 24 hour I O ending at 0700: 02/24 0700 02/23 1900 Intake Total Output Total 490 1500 Balance -490 -1500 Number 1 Bowel Movements Output, Urine 490 1500 Vital Signs: Date Time Temp Pulse Resp B/P B/P Pulse O2 O2 Flow FiO2 Mean Ox Delivery Rate 02/24 1134 99 Nasal 10 cannula 02/24 0659 97.5 74 20 105/64 77.5 100 02/24 0356 97.7 82 18 110/68 82.3 92 02/23 2243 97.7 77 18 103/60 74.6 99 02/23 1919 91 Nasal 10 cannula 02/23 1905 97.5 78 18 107/68 81.1 100 02/23 1648 69 115/65 82.1 02/23 1535 Nasal 7 cannula 02/23 1502 98.2 55 18 90/46 60.5 96 PATIENT WEIGHT: Weight (lb): 247 Weight (oz): 12.79 Weight (kg): 112.400 Medications: Active Meds + DC'd Last 24 Hrs Enoxaparin Sodium (LOVENOX) 40 MG Q24H SUBQ Insulin Human Lispro (HumaLOG 100 UNITS/ML) 0 AC HS SUBQ Dextrose/Water (DEXTROSE 10%) 125 ML ASDIR PRN IV (CKD) Dextrose/Water (DEXTROSE 10%) 250 ML ASDIR PRN IV (CKD) Glucagon (GLUCAGON) 1 MG ASDIR PRN IM Atorvastatin Calcium (Lipitor) 80 MG BEDTIME PO Calcium Gluconate (Calcium Gluconate 1 GM/NS 50 mL (B2)) 50 ML ASDIR PRN IV Calcium Gluconate (Calcium Gluconate 1 GM/NS 50 mL (B2)) 50 ML ASDIR PRN IV Magnesium Sulfate (MAGNESIUM SULF 2 GM/SWI 50 ML) 50 ML ASDIR PRN IV Potassium Chloride (POTASSIUM CHLORIDE 20 MEQ/100 ML PREMIX) 100 ML ASDIR PRN IV Potassium Chloride (POTASSIUM CHLORIDE 20 MEQ/100 ML PREMIX) 100 ML ASDIR PRN IV Potassium Chloride (POTASSIUM CHLORIDE 20 MEQ/100 ML PREMIX) 100 ML ASDIR PRN IV Potassium Chloride (POTASSIUM CHLORIDE 20 MEQ/100 ML PREMIX) 100 ML ASDIR PRN IV Potassium Phosphate (POTASSIUM PHOSPHATE) 15 MM ASDIR PRN IV (CKD) Sodium Chloride (SODIUM CHLORIDE 0.9%) 100 ML Potassium Phosphate (POTASSIUM PHOSPHATE) 30 MM ASDIR PRN IV (CKD) Sodium Chloride (SODIUM CHLORIDE 0.9%) 250 ML Sodium Phosphate (SODIUM PHOSPHATE) 15 MMOL ASDIR PRN IV Sodium Chloride (SODIUM CHLORIDE 0.9%) 100 ML Sodium Phosphate (SODIUM PHOSPHATE) 20 MMOL ASDIR PRN IV Sodium Chloride (SODIUM CHLORIDE 0.9%) 250 ML Sodium Phosphate (SODIUM PHOSPHATE) 30 MMOL ASDIR PRN IV Sodium Chloride (SODIUM CHLORIDE 0.9%) 250 ML Albuterol Sulfate (PROVENTIL) 2.5 MG RTBID NEB Lisinopril (PRINIVIL OR ZESTRIL) 2.5 MG DAILY PO Clopidogrel Bisulfate (PLAVIX) 75 MG DAILY PO Glipizide (GLUCOTROL) 10 MG BID AC PO Aspirin (ASPIRIN 81MG CHEW) 81 MG DAILY PO Furosemide (LASIX 40MG INJ) 40 MG BID 9A 5P IV Metoprolol Tartrate (LOPRESSOR) 25 MG Q12H PO Mupirocin (BACTROBAN 2% 22 GM OINT) 1 APPLIC BID NASAL Acetaminophen/Codeine Phosphate (TYLENOL W CODEINE NO.3) 1 TAB Q4H PRN PRN PO Fluticasone Propionate (FLONASE NASAL SPRAY) 1 SPRAY DAILY PRN PRN NASAL (CKD) Loratadine (CLARITIN) 10 MG DAILY PO Physical Exam General appearance: alert, awake, oriented Head/Eyes: atraumatic ENT: moist mucosal membranes Neck: no JVD Cardiovascular: CV assessment: regular rate and rhythm Respiratory: on oxygen, no distress Lower extremity: LE assessment: edema Diagnosis, Assessment Plan Free Text DxA P Notes Free Text DxA P Notes: Device interrogation: 02/23/24 Ap:6% BIVP:92% RA:2.4/709/1.3@0.4 RV:4.3/380/(39)/0.9@0.4 LV:14.4/575/2.5@0.4 1x NSVT on 02/23/24 - 16 secs w/ avg V rate @160bpm Heart logic score is 11 1. Acute on chronic CHF exacerbation: Agree with more aggressive diuresis and more afterload reduction with beta-blockers, GABE inhibitors and consideration of agents like Entresto, Jardiance, spironolactone as allowed by blood pressure and volume status and renal function readings.Echo w/ EF 45-49%, grade 2 diastolic dysfunction. 2. CAD: s/p stents. Home meds. 3. Acute respiratory failure: per pulm 4. Hypertension: home meds. adjust prn POC discussed w/ Steffanie Ahn 03/23/24 2334: Attestations Physician Attestation Agree w/findings plan: I have seen and examined the patient at bedside. I have reviewed the relevant test results and formulated the assessment and plan. I agree with the note by TABLE COVER FOLDER. at 1228 at 2336 RPT #:[id number] END OF REPORT [facility] 2024-02-25 09:45:00 [facility] ([facility] Pulmonology Progress Note REPORT#:[id number] REPORT STATUS: Signed REPORT INITIALIZATION DATE:02/25/24 TIME: 944 PATIENT: WILLI MERRITT UNIT #: [id number] ROOM/BED: [place] [id number] : [birth year] AGE: 73 SEX: M ATTEND: Lauro Lane MD ADM AUTHOR: Skip Santos MD REPT SERVICE DT/TIME: 02/25/24 0945 * ALL edits or amendments must be made on the electronic/computer document * Subjective Chief complaint: SOB Comments: Remains with significant volume Shortness of breath better Off BiPAP Oxygen requirement still elevated ROS: no nausea/vomitting or chest pain Objective General VS/I O: Last Documented: Result Date Time Pulse Ox 100 02/24 659 B/P 105/64 02/24 0659 B/P Mean 77.5 02/24 0659 Temp 97.5 02/24 659 Pulse 74 02/24 0659 Resp 20 02/24 659 O2 Delivery Nasal cannula 02/23 1919 O2 Flow Rate 10 02/23 1919 FiO2 52 02/23 0638 24 hour I O ending at 0700: 02/23 1900 02/24 0700 Intake Total Output Total 1500 490 Balance -1500 -490 Number 1 Bowel Movements Output, Urine 1500 490 PATIENT WEIGHT: Weight (lb): 247 Weight (oz): 12.79 Weight (kg): 112.400 Medications: Active Meds + DC'd Last 24 Hrs Enoxaparin Sodium (LOVENOX) 40 MG Q24H SUBQ Insulin Human Lispro (HumaLOG 100 UNITS/ML) 0 AC HS SUBQ Dextrose/Water (DEXTROSE 10%) 125 ML ASDIR PRN IV (CKD) Dextrose/Water (DEXTROSE 10%) 250 ML ASDIR PRN IV (CKD) Glucagon (GLUCAGON) 1 MG ASDIR PRN IM Potassium Chloride (POTASSIUM CHLORIDE 20 MEQ TAB.ER) 20 MEQ ONCE ONE PO (DC) Atorvastatin Calcium (Lipitor) 80 MG BEDTIME PO Calcium Gluconate (Calcium Gluconate 1 GM/NS 50 mL (B2)) 50 ML ASDIR PRN IV Calcium Gluconate (Calcium Gluconate 1 GM/NS 50 mL (B2)) 50 ML ASDIR PRN IV Enoxaparin Sodium (LOVENOX) 30 MG Q24H SUBQ (DC) Magnesium Sulfate (MAGNESIUM SULF 2 GM/SWI 50 ML) 50 ML ASDIR PRN IV Potassium Chloride (POTASSIUM CHLORIDE 20 MEQ/100 ML PREMIX) 100 ML ASDIR PRN IV Potassium Chloride (POTASSIUM CHLORIDE 20 MEQ/100 ML PREMIX) 100 ML ASDIR PRN IV Potassium Chloride (POTASSIUM CHLORIDE 20 MEQ/100 ML PREMIX) 100 ML ASDIR PRN IV Potassium Chloride (POTASSIUM CHLORIDE 20 MEQ/100 ML PREMIX) 100 ML ASDIR PRN IV Potassium Phosphate (POTASSIUM PHOSPHATE) 15 MM ASDIR PRN IV (CKD) Sodium Chloride (SODIUM CHLORIDE 0.9%) 100 ML Potassium Phosphate (POTASSIUM PHOSPHATE) 30 MM ASDIR PRN IV (CKD) Sodium Chloride (SODIUM CHLORIDE 0.9%) 250 ML Sodium Phosphate (SODIUM PHOSPHATE) 15 MMOL ASDIR PRN IV Sodium Chloride (SODIUM CHLORIDE 0.9%) 100 ML Sodium Phosphate (SODIUM PHOSPHATE) 20 MMOL ASDIR PRN IV Sodium Chloride (SODIUM CHLORIDE 0.9%) 250 ML Sodium Phosphate (SODIUM PHOSPHATE) 30 MMOL ASDIR PRN IV Sodium Chloride (SODIUM CHLORIDE 0.9%) 250 ML Albuterol Sulfate (PROVENTIL) 2.5 MG RTBID NEB Lisinopril (PRINIVIL OR ZESTRIL) 2.5 MG DAILY PO Clopidogrel Bisulfate (PLAVIX) 75 MG DAILY PO Glipizide (GLUCOTROL) 10 MG BID AC PO Aspirin (ASPIRIN 81MG CHEW) 81 MG DAILY PO Furosemide (LASIX 40MG INJ) 40 MG BID 9A 5P IV Metoprolol Tartrate (LOPRESSOR) 25 MG Q12H PO Mupirocin (BACTROBAN 2% 22 GM OINT) 1 APPLIC BID NASAL Acetaminophen/Codeine Phosphate (TYLENOL W CODEINE NO.3) 1 TAB Q4H PRN PRN PO Fluticasone Propionate (FLONASE NASAL SPRAY) 1 SPRAY DAILY PRN PRN NASAL (CKD) Loratadine (CLARITIN) 10 MG DAILY PO Physical Exam General appearance: chronically ill appearing Head/eyes: atraumatic, normocephalic, PERRL, EOMI, clear cornea, normal conjunctiva/sclera, normal fundi, normal eyelids/periorb. ENT: ENT: normal dentition, normal ear left, normal ear right, normal nose, normal pharynx, normal sinus Neck: full range of motion, non-tender, normal thyroid, supple/no meningismus, no bruit/NL carotids, no JVD, no lymphadenopathy, no masses or swelling Cardiovascular: regular rate rhythm Respiratory/chest: crackles, dullness to percussion Abdomen: soft, non-tender, no distention, no guarding, no mass/organomegaly, no rebound Extremities: edema, moves all Musculoskeletal: full range of motion, normal inspection Neuro/HAND STONER: alert, oriented X 3 Skin: dry, intact Lymphatics: axilla normal, inguinal normal, neck normal, no lymphadenopathy Psychiatry: normal affect, normal judgment/insight, normal mood, not homicidal, not suicidal, no hallucinations Results Findings/Data: Laboratory Tests 02/25/24 045: [Embedded Image Not Available] Laboratory Tests 02/23 02/23 02/23 02/24 1118 1459 1957 0453 Chemistry Sodium (134.0 - 147.0 mmol/l) 139 Potassium (3.6 - 5.2 mmol/L) 3.7 Chloride (98.0 - 107.0 mmol/l) 97 L Carbon Dioxide (21.0 - 33.0 mmol/l) 39.3 H Anion Gap (0 - 20) 6.4 BUN (7.0 - 18.0 mg/dl) 19 H Creatinine (0.60 - 1.30 mg/dL) 1.26 Estimated Creat Clear (>30 mL/min) 56 Glomerular Filtr Rate (mL/min) 61 Glucose (70.0 - 110.0 mg/dl) 78 POC Glucose (70 - 110 mg/dL) 128 H 150 H 259 H Calcium (8.0 - 10.5 mg/dl) 8.3 Laboratory Tests 02/24 0453 Hematology WBC (4.5 - 11.0 K/mm3) 7.7 RBC (4.40 - 5.90 M/mm3) 3.82 L Hgb (13.0 - 17.0 gm/dL) 10.5 L Hct (36.0 - 48.0 %) 36.3 MCV (80.0 - 94.0 UM3) 95.0 H MCH (25.5 - 32.5 UUG) 27.5 MCHC (29.0 - 35.5 gm/dL) 28.9 L RDW (11.5 - 15.0 %) 19.5 H Plt Count (150 - 400 K/mm3) 178 MPV (7.4 - 10.4 fl) 11.7 H Neut % (Auto) (49.0 - 76.0 %) 71.1 Lymph % (Auto) (23.0 - 38.0 %) 16.3 L Florence % (Auto) (1.0 - 10.0 %) 10.0 Eos % (Auto) (1.0 - 5.0 %) 1.9 Baso % (Auto) (0.0 - 1.0 %) 0.3 Neut # (Auto) (2.4 - 6.3 K/mm3) 5.5 Lymph # (Auto) (1.2 - 4.0 K/mm3) 1.3 Florence # (Auto) (0.0 - 0.6 K/mm3) 0.8 H Eos # (Auto) (0.0 - 0.7 K/MM3) 0.2 Baso # (Auto) (0.0 - 0.2 K/mm3) 0.0 Absolute Nucleated RBC (0.00 - 0.01 X10 3uL) 0.00 Immature Gran % (0.0 - 0.4 %) 0.4 Nucleated RBC % (0.0 - 0.1 %) 0.0 Immature Gran # (0.00 - 0.07 x10 3/uL) 0.03 Diagnosis, Assessment Plan Free Text A P: 1. Acute on chronic hypoxemic respiratory failure O2 via high flow nasal cannula Wean to baseline of 6 L/min as tolerated Worsened related to pulmonary edema 2. CHF exacerbation Continue IV Lasix Cardiology following Follow chest x-ray Echo noted from previous 3. DIANNE/OHS Patient reports having inconsistently using home CPAP Will continue to use BiPAP nightly and as needed while hospitalized 4. Acute kidney injury with chronic kidney disease? Continue to follow BUN and creatinine May improve with diuresis 5. Hypokalemia Replace at 0947 [facility] #:[id number] END OF REPORT [facility] 2024-02-24 12:16:00 [id number] [place] [address] [address] [place] [address] PATIENT NAME: WILLI MERRITT ADMIT DATE: 02/22/24 ACCOUNT NO: [id number] ROOM NO: [facility] AGE: 73 REPORT TYPE: ECHOCARDIOGRAM REPORT DATE OF : 54 SEX: M ADMITTING PHYSICIAN:Lauro Lane MD ATTENDING PHYSICIAN:Lauro Lane MD *[facility]* [address] [place] [address] Transthoracic Echocardiogram Patient: Willi Merritt Study Date: 02/24/2024 BP: URN: [id number] Location: : 1950 Age: 73 Gender: M Height: 70 in / 177.8 cm Weight: 247 lb / 112 kg BMI/BSA: 35.4 kg/m 2 / 2.39 m 2 *Ordering Physician: * Ernesto Kingsley MD *Interpreting Physician: * Ernesto Kingsley MD *Dining Room Server: * Salina Lua RVT, LEANDER Indications: Congestive Heart Failure. Study data: Transthoracic echocardiogram. Procedure: A transthoracic echocardiogram was performed. Images were obtained using a iSOCO cardiac ultrasound machine. Image quality was poor. The study was technically limited due to poor acoustic window availability. Complete 2D, complete spectral Doppler, and color Doppler. Patient status: Inpatient. Patient room number: 432. Heart rate: 87 bpm. Findings Left ventricle: The cavity size is mildly dilated. Wall thickness is mildly increased. Systolic function is reduced. The estimated ejection fraction is 45-49%. Grade II diastolic dysfunction. Right ventricle: The cavity size is mildly to moderately dilated. Pacer wire PATIENT NAME: WILLI MERRITT noted in the right ventricle. Systolic function is reduced. Left atrium: The atrium is normal in size. Right atrium: The atrium is normal in size. Pacer wire noted in right atrium. Aorta: Aortic root: The root is normal-sized. Aortic valve: The valve is structurally normal. The valve is trileaflet. There is no evidence of stenosis. There is no regurgitation. Mitral valve: The valve is structurally normal. There is no evidence of stenosis. There is mild regurgitation. Tricuspid valve: The valve is structurally normal. There is mild regurgitation. Pulmonic valve: The valve is structurally normal. There is no regurgitation. Pericardium: There is no pericardial effusion. Pulmonary arteries: The main pulmonary artery is normal-sized. Systemic veins: Inferior vena cava: The IVC is normal-sized. There is no respirophasic diameter change. Measurements Left ventricle Value Ref 04/17/2023 OLMAN, LAX 6.0 cm 4.2 - 5.8 6.4 ESD, LAX 4.2 cm 2.5 - 4.0 4.1 FS, LAX 31 % 25 - 43 37 OLMAN major ax, A2C 9.5 cm --------- 10.2 ESD major ax, A2C 8.3 cm --------- 9.4 IVS, ED 1.5 cm 0.6 - 1.0 1.1 PW, ED 1.1 cm 0.6 - 1.0 0.9 IVS/PW, ED 1.3 --------- 1.18 EF 57 % 52 - 72 35 E', lat luzma, TDI 8.6 cm/sec >=10.0 7.5 E/e', lat luzma, TDI 7 <=13 E', med luzma, TDI 6.1 cm/sec >=7.0 7.7 E/e', med luzma, TDI 10 --------- E', avg, TDI 7.3 cm/sec --------- E/e', avg, TDI 8 <=14 LVOT Value Ref 04/17/2023 Diam, S 1.90 cm --------- Area 2.8 cm 2 --------- 3.3 Peak radha, S 0.81 m/sec --------- 0.86 Mean radha, S 0.58 m/sec --------- 0.61 VTI, S 14.9 cm --------- 17.4 Peak grad, S 3 mm Hg --------- 3 Mean grad, S 2 mm Hg --------- 2 SV 42 ml --------- 58 Qs 3.12 L/min --------- 12.14 Qs/bsa 1.3 L/(min-m 2) --------- 5.4 SV/bsa 18 ml/m 2 --------- 26 Right ventricle Value Ref 04/17/2023 TAPSE, MM 1.6 cm >=1.7 1.6 RVOT Value Ref 04/17/2023 Peak v, S 0.67 m/sec --------- PATIENT NAME: WILLI MERRITT Peak grad, S 2 mm Hg --------- Left atrium Value Ref 04/17/2023 AP dim, ES 4.1 cm 3.0 - 4.0 4.2 Vol/bsa, S 18 ml/m 2 16 - 34 Vol/bsa, ES, 1-p A4C 16 ml/m 2 12 - 37 20 Vol, ES, 2-p 44 ml --------- 59 Vol/bsa, ES, 2-p 18 ml/m 2 16 - 34 26 Vol/bsa, ES, A/L 18 ml/m 2 16 - 34 22 Aortic valve Value Ref 04/17/2023 Peak v, S 1.5 m/sec --------- 1.6 Mean v, S 0.97 m/sec --------- 1.11 VTI, S 21.4 cm --------- 30.9 Mean grad, S 4 mm Hg --------- 5 Peak grad, S 8.6 mm Hg --------- 8.9 LVOT/AV, VTI ratio 0.7 --------- 0.56 JANAK, VTI 1.97 cm 2 --------- 1.88 LVOT/AV, Vpeak ratio 0.55 --------- 0.54 JANAK, Vmax 1.56 cm 2 --------- 1.82 Mitral valve Value Ref 04/17/2023 Peak E 0.62 m/sec --------- 0.08 Peak A 0.6 m/sec --------- 0.8 Decel time 250 ms --------- 209 Peak E/A ratio 1.04 --------- Tricuspid valve Value Ref 04/17/2023 TR peak v 2.5 m/sec <=2.8 2.3 Peak RV-RA grad, S 25 mm Hg --------- 21 Conclusions Summary: 1. Left ventricle: The cavity size is mildly dilated. Wall thickness is mildly increased. Systolic function is reduced. The estimated ejection fraction is 45-49%. Grade II diastolic dysfunction. Apical segment hypokinesa is noted. 2. Right ventricle: The cavity size is mildly to moderately dilated. Systolic function is reduced. 3. Tricuspid valve: The peak RV-RA systolic gradient is 25 mm Hg. Electronically signed by Ernesto Kingsley MD 02/24/2024 12:16 at 1216 PATIENT NAME: WILLI MERRITT [facility] 2024-02-24 11:05:00 [id number] [facility] [place] [address] PATIENT NAME: WILLI MERRITT ADMIT DATE: 02/22/24 ACCOUNT NO: [id number] DISCHARGE DATE: 02/28/24 ROOM NO: E.[id number] REPORT TYPE: CONSULTATION REPORT DATE OF : [birth year] AGE: 73 SEX: M ADMITTING PHYSICIAN:Lauro Lane MD ATTENDING PHYSICIAN:Lauro Lane MD CONSULTATION DATE: 02/24/2024 CARDIOLOGY CONSULTATION REASON FOR CONSULTATION: Cardiac evaluation. HISTORY PRESENT ILLNESS: Mr. Merritt presents to the Emergency Room with shortness of breath, leg swelling. He states he has been taking furosemide at home, but still has swelling. He was hypoxic on oxygen. He has a past history of [employer] pacemaker defibrillator, congestive heart failure, LAD stents, diabetes, hypertension, hyperlipidemia. HABITS: Does not smoke. Unknown about alcohol and drug use. HOME MEDICATIONS: Include insulin, Lasix, glipizide, ibuprofen, Tylenol with codeine, metoprolol 25 q. 12 hours, aspirin, Plavix, atorvastatin 80. REVIEW OF SYSTEMS: A 12-system review of systems was carried out and was as above. PHYSICAL EXAMINATION: VITAL SIGNS: He weighs 112 kilos, blood pressure is 115/57, pulse 81. NECK: Neck veins appear congested. LUNGS: Air entry is reduced. HEART: Heart tones appear distant. ABDOMEN: Soft, obese. EXTREMITIES: 3+ edema. EKG showed short runs of wide QRS tachycardia and paced rhythm. Lab values revealed hemoglobin 11.3, potassium 5.1, creatinine 1.48, glucose 165. Magnesium 1.8. BNP 492. Chest x-ray shows mild pulmonary congestion. Review of [employer] reveals LAD stents in 12/[address] at [facility]. In 04/2023, echo showed EF 35% and CT angio had shown no evidence of PE, but did have pneumonia. IMPRESSION AND PLAN: Mr. Merritt has coronary artery disease, congestive heart failure. Agree with more aggressive diuresis and more afterload reduction with beta-blockers, GABE inhibitors and consideration of agents like Entresto, Jardiance, spironolactone as allowed by blood pressure and volume status and renal function readings. We will check the [employer] ICD also, echocardiogram has been ordered and once he becomes more euvolemic, one could consider ischemia evaluation with either stress test or heart catheterization as PATIENT NAME: WILLI MERRITT appropriate. Troponin is normal at 51, normal is up to 76. Dictated By: Ernesto Kingsley MD Date Dictated: 02/24/2024 11:05:39 Date Transcribed: 02/24/2024 12:19:58 JA/ARTURO Receipt ID: [id number] Authenticated by Ernesto Kingsley MD On 03/25/2024 09:02:25 PM at 0902 PATIENT NAME: WILLI MERRITT [facility] 2024-02-24 09:40:00 [facility] ([facility]) Hospitalist Progress Note REPORT#:[id number] REPORT STATUS: Signed REPORT INITIALIZATION DATE:02/24/24 TIME: 939 PATIENT: WILLI MERRITT UNIT #: [id number] ROOM/BED: [place] [id number] : [birth year] AGE: 73 SEX: M ATTEND: Lauro Lane MD ADM AUTHOR: Tricia Schofield MD REPT SERVICE DT/TIME: 02/24/24 0940 * ALL edits or amendments must be made on the electronic/computer document * Subjective Chief complaint: Shortness of breath On 10 L oxygen Sister at the bedside Wants to go home Uses 8 L at home Review of Systems Constitutional: Denies: fever. Respiratory: Reports: SOB. Denies: productive cough (sputum). Cardiovascular: Denies: chest pain. GI: Denies: nausea, vomiting. Objective General VS/I O: Laboratory Tests 02/24/24 0505: [Embedded Image Not Available] 02/22/242028: [Embedded Image Not Available] Active Meds + DC'd Last 24 Hrs Atorvastatin Calcium (Lipitor) 80 MG BEDTIME PO Calcium Gluconate (Calcium Gluconate 1 GM/NS 50 mL (B2)) 50 ML ASDIR PRN IV Calcium Gluconate (Calcium Gluconate 1 GM/NS 50 mL (B2)) 50 ML ASDIR PRN IV Enoxaparin Sodium (LOVENOX) 30 MG Q24H SUBQ Magnesium Sulfate (MAGNESIUM SULF 2 GM/SWI 50 ML) 50 ML ASDIR PRN IV Potassium Chloride (POTASSIUM CHLORIDE 20 MEQ/100 ML PREMIX) 100 ML ASDIR PRN IV Potassium Chloride (POTASSIUM CHLORIDE 20 MEQ/100 ML PREMIX) 100 ML ASDIR PRN IV Potassium Chloride (POTASSIUM CHLORIDE 20 MEQ/100 ML PREMIX) 100 ML ASDIR PRN IV Potassium Chloride (POTASSIUM CHLORIDE 20 MEQ/100 ML PREMIX) 100 ML ASDIR PRN IV Potassium Phosphate (POTASSIUM PHOSPHATE) 15 MM ASDIR PRN IV (CKD) Sodium Chloride (SODIUM CHLORIDE 0.9%) 100 ML Potassium Phosphate (POTASSIUM PHOSPHATE) 30 MM ASDIR PRN IV (CKD) Sodium Chloride (SODIUM CHLORIDE 0.9%) 250 ML Sodium Phosphate (SODIUM PHOSPHATE) 15 MMOL ASDIR PRN IV Sodium Chloride (SODIUM CHLORIDE 0.9%) 100 ML Sodium Phosphate (SODIUM PHOSPHATE) 20 MMOL ASDIR PRN IV Sodium Chloride (SODIUM CHLORIDE 0.9%) 250 ML Sodium Phosphate (SODIUM PHOSPHATE) 30 MMOL ASDIR PRN IV Sodium Chloride (SODIUM CHLORIDE 0.9%) 250 ML Albuterol Sulfate (PROVENTIL) 2.5 MG RTBID NEB Lisinopril (PRINIVIL OR ZESTRIL) 2.5 MG DAILY PO Clopidogrel Bisulfate (PLAVIX) 75 MG DAILY PO Glipizide (GLUCOTROL) 10 MG BID AC PO Aspirin (ASPIRIN 81MG CHEW) 81 MG DAILY PO Furosemide (LASIX 40MG INJ) 40 MG BID 9A 5P IV Metoprolol Tartrate (LOPRESSOR) 25 MG Q12H PO Mupirocin (BACTROBAN 2% 22 GM OINT) 1 APPLIC BID NASAL Acetaminophen/Codeine Phosphate (TYLENOL W CODEINE NO.3) 1 TAB Q4H PRN PRN PO Fluticasone Propionate (FLONASE NASAL SPRAY) 1 SPRAY DAILY PRN PRN NASAL (CKD) Loratadine (CLARITIN) 10 MG DAILY PO Microbiology Date/Time Procedure - Status Source Growth 02/22 0048 MRSA Screen - RECD NASAL Recent Impressions-Last 72 Hrs RADIOLOGY - XR CHEST 1 V 02/22 2036 Report Impression - Status: SIGNED Entered: 02/22/20242103 IMPRESSION: Mild pulmonary vascular congestion. Impression By: Ashley - Sunil Evans M.D. Vital Signs: Date Time Temp Pulse Resp B/P B/P Pulse O2 O2 Flow FiO2 Mean Ox Delivery Rate 02/23 0810 97.9 78 22 126/63 84.0 86 02/23 0638 92 Nasal 8 52 cannula 02/23 0400 98.6 87 17 108/65 79.3 93 02/22 2345 Nasal 9 cannula 02/23 2132 97.7 18 99/66 76.6 05/15 1701 69 97/58 72 96 02/22 1601 61 92/53 67 100 02/22 1500 64 94/53 67 99 02/22 1401 63 97/64 74 99 02/22 1301 68 122/57 80 97 02/22 1200 97.4 02/22 1200 77 23 105/75 86 99 02/22 1108 73 15 97/50 65 100 02/22 1030 Nasal 7 cannula 02/22 1001 81 26 115/57 80 94 24 hour I O ending at 0700: 02/23 0700 02/22 1900 Intake Total 350 Output Total 300 300 Balance -300 50 Intake, Free 50 Water Intake, Oral 250 Intake, Tube 50 Feeding Output, Urine 300 300 PATIENT WEIGHT: Weight (lb): 247 Weight (oz): 12.79 Weight (kg): 112.400 Free Text Obj Notes Free Text Obj Notes: PHYSICAL EXAMINATION General appearance: alert, awake, no acute distress Head/Eyes: atraumatic, normocephalic, PERRL, EOMI ENT: normal ear left, normal ear right, normal nose, normal pharynx Neck: full range of motion, supple/no meningismus Cardiovascular: normal S1/S2, regular rate rhythm Respiratory/chest: Decreased breath sounds bilaterally Abdomen: soft, non-tender, normal bowel sounds Genitourinary: deferred Extremities: moves all, no clubbing, no cyanosis, no edema Musculoskeletal: full range of motion, normal inspection Neuro/HAND STONER alert, oriented X 3, CNII-XII intact Skin: dry, intact Psychiatry: normal affect, normal judgment/insight, normal mood Diagnosis, Assessment Plan Free Text DxA P Notes Free text DxA P notes: Acute on chronic hypoxic respiratory failure Nasal cannula oxygen ICU monitoring S/p BiPAP Improving Acute on chronic systolic CHF with exacerbation. Ran out of Lasix 4 days ago Continue IV diuresis Goal-directed medical therapy Cardiology consult Troponin negative ----Prior echo in April 2023 with EF 35 to 39% LEELA on CKD stage III Monitor creatinine with diuresis and consult nephrology if worsening diabetes mellitus type 2 Continue home meds and adjust as needed Hypertension Continue home meds Coronary artery disease status post stents, continue home meds Lovenox for DVT prophylaxis 02/24/24 --- Acute on chronic hypoxic respiratory failure on 10 L nasal cannula wean as tolerated s/p ICU on BiPAP --- Acute on chronic systolic heart failure IV diuresis cardiology follow-up EF 35 to 39% --- LEELA on CKD stage III creatinine stable 1.4 1.3 ---diabetes mellitus type 2 --blood sugars acceptable --- Hypertension --monitor for low blood pressure --- Other comorbidities coronary artery disease cardiac stents VTE prophylax Lovenox Wean oxygen as tolerated Discussed with the patient and the sister at the bedside Patient wants to go home at 1255 RPT #:[id number] END OF REPORT [facility] 2024-02-24 09:19:00 [facility] ([facility] Pulmonology Progress Note REPORT#:[id number] REPORT STATUS: Signed REPORT INITIALIZATION DATE:02/24/24 TIME: 918 PATIENT: WILLI MERRITT UNIT #: [id number] ROOM/BED: [place] [address] : 52 AGE: 73 SEX: M ATTEND: Lauro Lane MD ADM AUTHOR: Skip Santos MD REPT SERVICE DT/TIME: 02/24/24918 * ALL edits or amendments must be made on the electronic/computer document * Subjective Chief complaint: SOB Comments: Doing better but remains severely hypoxic Transfer to floor ROS: no nausea/vomitting or chest pain Objective General VS/I O: Last Documented: Result Date Time Pulse Ox 86 02/23 0810 B/P 126/63 02/23 0810 B/P Mean 84.0 02/23 0810 Temp 97.9 02/23 0810 Pulse 78 02/23 0810 Resp 22 02/23 0810 FiO2 52 02/23 0638 O2 Delivery Nasal cannula 02/23 638 O2 Flow Rate 8 02/23 0638 24 hour I O ending at 0700: 02/22 1900 02/23 0700 Intake Total 350 Output Total 300 300 Balance 50 -300 Intake, Free 50 Water Intake, Oral 250 Intake, Tube 50 Feeding Output, Urine 300 300 PATIENT WEIGHT: Weight (lb): 247 Weight (oz): 12.79 Weight (kg): 112.400 Physical Exam General appearance: chronically ill appearing Head/eyes: atraumatic, normocephalic, PERRL, EOMI, clear cornea, normal conjunctiva/sclera, normal fundi, normal eyelids/periorb. ENT: ENT: normal dentition, normal ear left, normal ear right, normal nose, normal pharynx, normal sinus Neck: full range of motion, non-tender, normal thyroid, supple/no meningismus, no bruit/NL carotids, no JVD, no lymphadenopathy, no masses or swelling Cardiovascular: regular rate rhythm Respiratory/chest: crackles, dullness to percussion Abdomen: soft, non-tender, no distention, no guarding, no mass/organomegaly, no rebound Extremities: edema, moves all Musculoskeletal: full range of motion, normal inspection Neuro/HAND STONER: alert, oriented X 3 Skin: dry, intact Lymphatics: axilla normal, inguinal normal, neck normal, no lymphadenopathy Psychiatry: normal affect, normal judgment/insight, normal mood, not homicidal, not suicidal, no hallucinations Results Findings/Data: Laboratory Tests 02/24/24 0505: [Embedded Image Not Available] Laboratory Tests 02/22 02/22 02/23 02/23 0950 1630 0505 0701 Chemistry Sodium (134.0 - 147.0 mmol/l) 140 Potassium (3.6 - 5.2 mmol/L) 3.3 L Chloride (98.0 - 107.0 mmol/l) 97 L Carbon Dioxide (21.0 - 33.0 mmol/l) 38.7 H Anion Gap (0 - 20) 7.6 BUN (7.0 - 18.0 mg/dl) 20 H Creatinine (0.60 - 1.30 mg/dL) 1.36 H Estimated Creat Clear (>30 mL/min) 51 Glomerular Filtr Rate (mL/min) 56 Glucose (70.0 - 110.0 mg/dl) 143 H POC Glucose (70 - 110 mg/dL) 211 H 175 H 147 H Calcium (8.0 - 10.5 mg/dl) 8.4 TSH (0.47 - 5.01 IU/ML) 1.80 Laboratory Tests 02/23 0505 Hematology WBC (4.5 - 11.0 K/mm3) 9.0 RBC (4.40 - 5.90 M/mm3) 3.96 L Hgb (13.0 - 17.0 gm/dL) 11.0 L Hct (36.0 - 48.0 %) 37.9 MCV (80.0 - 94.0 UM3) 95.7 H MCH (25.5 - 32.5 UUG) 27.8 MCHC (29.0 - 35.5 gm/dL) 29.0 RDW (11.5 - 15.0 %) 19.8 H Plt Count (150 - 400 K/mm3) 178 MPV (7.4 - 10.4 fl) 11.5 H Neut % (Auto) (49.0 - 76.0 %) 74.9 Lymph % (Auto) (23.0 - 38.0 %) 13.7 L Florence % (Auto) (1.0 - 10.0 %) 8.9 Eos % (Auto) (1.0 - 5.0 %) 1.9 Baso % (Auto) (0.0 - 1.0 %) 0.2 Neut # (Auto) (2.4 - 6.3 K/mm3) 6.7 H Lymph # (Auto) (1.2 - 4.0 K/mm3) 1.2 Florence # (Auto) (0.0 - 0.6 K/mm3) 0.8 H Eos # (Auto) (0.0 - 0.7 K/MM3) 0.2 Baso # (Auto) (0.0 - 0.2 K/mm3) 0.0 Absolute Nucleated RBC (0.00 - 0.01 X10 3uL) 0.00 Immature Gran % (0.0 - 0.4 %) 0.4 Nucleated RBC % (0.0 - 0.1 %) 0.0 Immature Gran # (0.00 - 0.07 x10 3/uL) 0.04 Diagnosis, Assessment Plan Free Text A P: 1. Acute on chronic hypoxemic respiratory failure O2 via high flow nasal cannula Wean to baseline of 6 L/min as tolerated Worsened related to pulmonary edema 2. CHF exacerbation Continue IV Lasix Cardiology following Recheck x-ray in a.m. 3. DIANNE/OHS Patient reports having inconsistently using home CPAP Will continue to use BiPAP nightly and as needed while hospitalized 4. Acute kidney injury with chronic kidney disease? Continue to follow BUN and creatinine May improve with diuresis 5. Hypokalemia Replace at 0920 RPT #:[id number] END OF REPORT [facility] 2024-02-24 06:35:00 [facility] ([facility]) Clinical Note REPORT#:[id number] REPORT STATUS: Signed REPORT INITIALIZATION DATE:02/24/24 TIME: 0635 PATIENT: WILLI MERRITT UNIT #: [id number] ROOM/BED: [place] [address] : 52 AGE: 73 SEX: M ATTEND: Lauro Lane MD ADM AUTHOR: Ernesto Kingsley MD REPT SERVICE DT/TIME: 02/24/24 0635 * ALL edits or amendments must be made on the electronic/computer document * Clinical Note Note: dict number [id number] full note to follow COPD, sleep apnea, chronic CHF ,DM, HT, DIANNE, 02/23/2024: troponin 51, bnp 492, creat 1.48, echo: 04/2023: lvef 35% CTA: no PE, PNA Cath: LAD stents by Dr Antonio 12/2021 at 0734 RPT #:[id number] END OF REPORT [facility] 2024-02-23 11:53:00 [facility] ([facility]) Pulmonary Consultation Note REPORT#:[id number] REPORT STATUS: Signed REPORT INITIALIZATION DATE:02/23/24 TIME: 1153 PATIENT: WILLI MERRITT UNIT #: [id number] ROOM/BED: [place] [id number] : 52 AGE: 73 SEX: M ATTEND: Lauro Lane MD ADM AUTHOR: Waldemar Hunt REPT SERVICE DT/TIME: 02/23/24 1153 * ALL edits or amendments must be made on the electronic/computer document * Waldemar Hunt 02/23/24 1153: History of Present Illness HPI Requesting clinician: Dr. Houston Reason for consult: Acute hypoxemic respiratory failure Chief complaint: SOB PCP: PCP: No Primary or Family Physician HPI: Patient is a 73-year-old male, w/ PMH of HFrEF (EF 35-39%), DIANNE/OHS on home CPAP , chronic hypoxic respiratory failure on home oxygen 6 L/min, diabetes mellitus, hypertension, and hyperlipidemia who presented to the emergency department for acute on chronic hypoxemic respiratory failure and shortness of breath. Dyspnea reportedly began yesterday, and patient has noted increased bilateral lower extremity edema despite being on home Lasix. Patient was reportedly found by EMS to have SpO2 of 70% on 6 L nasal cannula. They transitioned him to 10 L nonrebreather, he received 2 breathing treatments, and breathing reportedly improved. Patient was placed on BiPAP overnight, and admitted to the ICU. At the time of my exam, patient has been off BiPAP since around 0500. He is currently breathing comfortably on 10 L high flow nasal cannula. He reports overall improvement in his symptoms. He currently denies any chest pain, palpitations, orthopnea, paroxysmal nocturnal dyspnea, chest congestion, nausea/ vomiting/constipation/diarrhea, fever, headache, or chills. He does report some productive cough with clear sputum. Past medical history: CHF with a EF 35 to 39% DIANNE/OHS on home CPAP Chronic hypoxemic respiratory failure on home oxygen at 6 L/min Diabetes mellitus Hypertension Hyperlipidemia Social history: Patient is a lifelong non-smoker. No known history of alcohol or illegal drug abuse. Review of Symptoms General: Patient denies significant fatigue, fevers, chills, generalized weakness, or recent weight loss. Eyes: No recent visual change, redness, discharge. ENT: No recent hearing loss, nasal congestion, sinus problems, or sore throat. Respiratory: See HPI. Cardiovascular: No chest pain, palpitations, orthopnea, paroxysmal nocturnal dyspnea. Significant bilateral lower extremity edema. Gastrointestinal: No nausea, vomiting, diarrhea. Genitourinary: No dysuria, urgency, or hematuria. Musculoskeletal: No arthralgias, myalgias, joint pain or swelling. Hematologic: No recent history of bleeding, bruising, or adenopathy. Endocrine: No heat or cold intolerance. No recent weight change. No palpitations. Neurologic: No seizures, syncope, or focal weakness. Psychiatric: No anxiety, agitation, depression, or confusion. Skin: No rash, swelling, bruising. Lymphatic: No lymphadenopathy. Physical Exam General: Patient is well-developed and well-nourished. Not in any acute distress. Head: Normocephalic and atraumatic. Eyes: Normal conjunctiva. No scleral icterus. Pupils are equal and reactive to light. ENT: Oral mucosa pink and moist. No thrush is apparent. Neck: No palpable cervical or supraclavicular lymphadenopathy. No jugular venous distention. Trachea midline. Respiratory: Normal chest contour. Symmetric to expansion. Diminished breath sounds noted bilaterally, with scattered rales throughout. Respiratory effort unlabored and even. Cardiac: Heart has a regular rate and rhythm, without murmur, rub, or gallop. Abdomen: Flat and soft. Normoactive bowel sounds. No palpable hepatosplenomegaly or masses. Extremities: No cyanosis or clubbing. 3+ bilateral lower extremity edema. Lymphatic: No palpable cervical or supraclavicular lymphadenopathy. Neurologic: Patient is awake, alert, and appropriate. Cranial nerves II through XII are grossly intact. No gross focal motor deficits. Musculoskeletal: No deformity is apparent. Normal muscle bulk and tone. History - Adult longitudinal Past medical history: Reports: Coronary artery disease, Diabetes mellitus, Hypertension, Dyslipidemia. Additional medical history: Systolic CHF, diabetes mellitus type 2, hypertension, coronary artery disease s/p stents, chronic hypoxemia on home oxygen Additional surgical history: None Additional family history: Not contributory to current problem Alcohol use: Denies EtOH use Drug use: Denies recreational drugs Smoking status for patients 13 years old or older: Unknown,if ever smoked Medications: Home Medications: Medication Dose/Rte/Freq Days Qty Entered Last Max Daily Dose Reviewed INSULIN ASPART 16 UNITS SUBQ AC BK 10/31/21 02/23/24 (NovoLOG CARTRIDGE 1704 0100 (15mL)) Strength: (Unknown Strength) CARTRIDGE FUROSEMIDE (LASIX) 40 MG PO BID 11/24/21 02/23/24 Strength: 80 MG TAB 1029 0058 IBUPROFEN (MOTRIN) 800 MG PO 11/24/21 02/23/24 Strength: 800 MG TAB Q8H PRN PRN PAIN 1021 0059 glipiZIDE (GLUCOTROL) 10 MG PO BID 11/24/21 02/23/24 Strength: 10 MG TAB 1023 0058 ACETAMINOPHEN/CODEINE 1 TAB PO 11/24/21 02/23/24 (TYLENOL WITH CODEINE Q4H PRN PRN ACUTE 1027 0101 #3 300/30 MG) PAIN Strength: 300 MG-30 MG TAB ALBUTEROL 1 PUFF INH BID 11/24/21 02/23/24 (VENTOLIN HFA 90 1142 0102 MCG/ACT 18 GM) Strength: 90 MCG INHALER METOPROLOL TARTRATE 25 MG PO Q12H 60 11/01/21 02/23/24 (LOPRESSOR) 0947 0059 Strength: 50 MG TAB ATORVASTATIN (LIPITOR) 80 MG PO DAILY 30 11/01/21 Strength: 80 MG TAB 0949 LISINOPRIL (ZESTRIL) 2.5 MG PO DAILY 30 30 04/26/23 02/23/24 Strength: 2.5 MG TAB 1409 0103 ASPIRIN 81 MG PO DAILY 90 90 11/26/21 02/23/24 Strength: 81 MG TAB.CHEW 1008 0055 CLOPIDOGREL (PLAVIX) 75 MG PO DAILY 90 90 12/24/21 02/23/24 Strength: 75 MG TAB 1341 0101 Current Hospital Medications: Antihistamine Drugs Sig/Lala Start time Last Medication Dose Route Stop Time Status Admin Loratadine 10 MG DAILY 02/22 0130 AC 02/22 (CLARITIN) PO 05/23 0129 0828 Autonomic Drugs Sig/Lala Start time Last Medication Dose Route Stop Time Status Admin Albuterol Sulfate 2.5 MG RTBID 02/22 0924 AC (PROVENTIL) NEB 05/23 0923 Blood Formation,Coagulation Sig/Lala Start time Last Medication Dose Route Stop Time Status Admin Enoxaparin Sodium 30 MG Q24H 02/22 0945 AC 02/22 (LOVENOX) SUBQ 05/23 0944 0957 Clopidogrel Bisulfate 75 MG DAILY 02/22 09 AC 02/22 (PLAVIX) PO 03/24 0921 0955 Cardiovascular Drugs Sig/Lala Start time Last Medication Dose Route Stop Time Status Admin Atorvastatin Calcium 80 MG BEDTIME 02/22 2100 AC (Lipitor) PO 03/24 205 Lisinopril 2.5 MG DAILY 02/22 0923 AC 02/22 (PRINIVIL OR ZESTRIL) PO 05/23 0922 0954 Metoprolol Tartrate 25 MG Q12H 02/22 0915 AC 02/22 (LOPRESSOR) PO 05/23 0914 0956 Central Nervous System Agents Sig/Lala Start time Last Medication Dose Route Stop Time Status Admin Aspirin 81 MG DAILY 02/22 0916 AC 02/22 (ASPIRIN 81MG CHEW) PO 05/23 915 0956 Acetaminophen/ 1 TAB Q4H PRN PRN 02/22 0145 AC 02/22 Codeine Phosphate PO 02/27 0144 0153 (TYLENOL W CODEINE NO.3) Electrolytic, Caloric, And Sven Sig/Lala Start time Last Medication Dose Route Stop Time Status Admin Calcium Gluconate 50 ML ASDIR PRN 02/22 0945 AC (Calcium Gluconate 1 IV 05/23 0944 GM/NS 50 mL (B2)) Calcium Gluconate 50 ML ASDIR PRN 02/22 0945 AC (Calcium Gluconate 1 IV GM/NS 50 mL (B2)) Potassium Chloride 100 ML ASDIR PRN 02/22 0945 AC (POTASSIUM CHLORIDE IV 05/23 0944 20 MEQ/100 ML PREMIX) Potassium Chloride 100 ML ASDIR PRN 02/22 0945 AC (POTASSIUM CHLORIDE IV 05/23 0944 20 MEQ/100 ML PREMIX) Potassium Chloride 100 ML ASDIR PRN 02/22 0945 AC (POTASSIUM CHLORIDE IV 05/23 0944 20 MEQ/100 ML PREMIX) Potassium Chloride 100 ML ASDIR PRN 02/22 0945 AC (POTASSIUM CHLORIDE IV 05/23 0944 20 MEQ/100 ML PREMIX) Potassium Phosphate 15 MM ASDIR PRN 02/22 0945 CKD (POTASSIUM PHOSPHATE) IV 05/23 0944 Sodium Chloride 100 ML (SODIUM CHLORIDE 0.9%) Potassium Phosphate 30 MM ASDIR PRN 02/22 0945 CKD (POTASSIUM PHOSPHATE) IV 05/23 09 Sodium Chloride 250 ML (SODIUM CHLORIDE 0.9%) Sodium Phosphate 15 MMOL ASDIR PRN 02/22 0945 AC (SODIUM PHOSPHATE) IV 05/23 0944 Sodium Chloride 100 ML (SODIUM CHLORIDE 0.9%) Sodium Phosphate 20 MMOL ASDIR PRN 02/22 0945 AC (SODIUM PHOSPHATE) IV 05/23 0944 Sodium Chloride 250 ML (SODIUM CHLORIDE 0.9%) Sodium Phosphate 30 MMOL ASDIR PRN 02/22 0945 AC (SODIUM PHOSPHATE) IV 05/23 944 Sodium Chloride 250 ML (SODIUM CHLORIDE 0.9%) Furosemide 40 MG BID 9A 5P 02/22 915 AC 02/22 (LASIX 40MG INJ) IV 05/23 0914 56 Furosemide 60 MG X1ED STA 02/21 2023 DC 02/21 (LASIX 40MG INJ) IV 02/21 Hormones And Synthetic Substit Sig/Lala Start time Last Medication Dose Route Stop Time Status Admin Glipizide 10 MG BID AC 02/22 0917 AC 02/22 (GLUCOTROL) PO 05/23 0916 0955 Miscellaneous Therapeutic Agen Sig/Lala Start time Last Medication Dose Route Stop Time Status Admin Magnesium Sulfate 50 ML ASDIR PRN 02/22 0945 AC (MAGNESIUM SULF 2 GM/ IV 05/23 0944 SWI 50 ML) Skin And Mucous Membrane Agent Sig/Lala Start time Last Medication Dose Route Stop Time Status Admin Mupirocin 1 APPLIC BID 02/22 0900 AC 02/22 (BACTROBAN 2% 22 GM NASAL 02/26 2101 08 OINT) Fluticasone 1 SPRAY DAILY PRN PRN 02/22 0130 CKD 02/22 Propionate NASAL 05/23 012 0525 (FLONASE NASAL SPRAY) Allergies: Coded Allergies: No Known Allergies (12/23/21) Objective Physical Exam Vitals: Last Documented: Result Date Time O2 Delivery Nasal cannula 02/22 1030 O2 Flow Rate 7 02/22 1030 Pulse Ox 94 02/22 1001 B/P 115/57 02/22 1001 B/P Mean 80 02/22 1001 Pulse 81 02/22 1001 Resp 26 02/22 1001 Temp 36.8 02/22 0835 FiO2 100 02/21 2015 Results Findings/Data: Laboratory Tests 02/22/242028: [Embedded Image Not Available] Laboratory Tests 02/21 2039 Blood Gas VBG pH 7.395 VBG pCO2 (MMHG) 64.0 VBG pO2 (10.0 - 50.0 MMHG) 41.8 VBG HCO3 (22.0 - 27.0 MMOL/L) 38.3 H VBG O2 Sat (Calc) (60.0 - 80.0 %) 75.6 VBG Base Excess (-4.0 - 4.0 MMOL/L) 11.0 H FiO2 100.0 Laboratory Tests 02/22 Chemistry Sodium (134.0 - 147.0 mmol/l) 140 Potassium (3.6 - 5.2 mmol/L) 5.1 Chloride (98.0 - 107.0 mmol/l) 97 L Carbon Dioxide (21.0 - 33.0 mmol/l) 37.6 H Anion Gap (0 - 20) 10.5 BUN (7.0 - 18.0 mg/dl) 13 Creatinine (0.60 - 1.30 mg/dL) 1.48 H Estimated Creat Clear (>30 mL/min) 43 Glomerular Filtr Rate (mL/min) 50 Glucose (70.0 - 110.0 mg/dl) 206 H POC Glucose (70 - 110 mg/dL) 165 H Calcium (8.0 - 10.5 mg/dl) 8.8 Magnesium (1.8 - 2.4 mg/dl) 1.8 Troponin I High Sens (0 - 76 ng/L) 51 B-Natriuretic Peptide (5 - 100 PG/ML) 492 H Laboratory Tests 02/21 2029 Hematology WBC (4.5 - 11.0 K/mm3) 10.1 RBC (4.40 - 5.90 M/mm3) 4.09 L Hgb (13.0 - 17.0 gm/dL) 11.3 L Hct (36.0 - 48.0 %) 38.5 MCV (80.0 - 94.0 UM3) 94.1 H MCH (25.5 - 32.5 UUG) 27.6 MCHC (29.0 - 35.5 gm/dL) 29.4 RDW (11.5 - 15.0 %) 19.9 H Plt Count (150 - 400 K/mm3) 205 MPV (7.4 - 10.4 fl) 11.4 H Neut % (Auto) (49.0 - 76.0 %) 83.2 H Lymph % (Auto) (23.0 - 38.0 %) 7.4 L [place] % (Auto) (1.0 - 10.0 %) 8.1 Eos % (Auto) (1.0 - 5.0 %) 0.3 L Baso % (Auto) (0.0 - 1.0 %) 0.3 Neut # (Auto) (2.4 - 6.3 K/mm3) 8.4 H Lymph # (Auto) (1.2 - 4.0 K/mm3) 0.8 L [place] # (Auto) (0.0 - 0.6 K/mm3) 0.8 H Eos # (Auto) (0.0 - 0.7 K/MM3) 0.0 Baso # (Auto) (0.0 - 0.2 K/mm3) 0.0 Absolute Nucleated RBC (0.00 - 0.01 X10 3uL) 0.00 Immature Gran % (0.0 - 0.4 %) 0.7 H Nucleated RBC % (0.0 - 0.1 %) 0.0 Immature Gran # (0.00 - 0.07 x10 3/uL) 0.07 Radiology Data: Recent Impressions: RADIOLOGY - XR CHEST 1 V 02/22 2036 Report Impression - Status: SIGNED Entered: 02/22/20242103 IMPRESSION: Mild pulmonary vascular congestion. Impression By: Ashley Evans M.D. Results: x-ray personally reviewed Diagnosis, Assessment Plan Free Text DxA P Notes Free Text DxA P Notes: 1. Acute on chronic hypoxemic respiratory failure O2 via high flow nasal cannula Wean to baseline of 6 L/min as tolerated 2. CHF exacerbation IV Lasix Monitor I's and O's Monitor renal function 3. DIANNE/OHS Patient reports having inconsistently using home CPAP Will continue to use BiPAP nightly and as needed while hospitalized 4. Diabetes 5. Hypertension 6. Obesity Thank you for the consultation for the opportunity participate in the care of this patient. Okay to transfer to the floor from pulmonary standpoint. Skip Santos 02/24/24 0919: Attestations Physician Attestation Agree w/findings plan: Seen and examined Agree with plan as outlined above at 1217 at 0919 RPT #:[id number] END OF REPORT [facility] 2024-02-23 09:11:00 [facility] ([facility]) Hospitalist History Physical REPORT#:[id number] REPORT STATUS: Signed REPORT INITIALIZATION DATE:02/23/24 TIME: 910 PATIENT: WILLI MERRITT UNIT #: [id number] ROOM/BED: [place] [id number] : 52 AGE: 73 SEX: M ATTEND: Lauro Lane MD ADM AUTHOR: Consuelo Khalil MD REPT SERVICE DT/TIME: 02/23/24 0911 * ALL edits or amendments must be made on the electronic/computer document * History of Present Illness HPI Chief complaint: Shortness of breath PCP: PCP: No Primary or Family Physician HPI: 73-year-old patient with known history of systolic CHF, diabetes mellitus type 2 , hypertension, coronary artery disease status post stent, chronic hypoxemia on 6 L of oxygen at home presented to the hospital with 2-day history of worsening and progressively increasing shortness of breath at rest and with activity along with cough, worsening leg edema. He also had chest tightness. EMS was called and he was noted to have hypoxia oxygen saturation 71% on room air. He was tachycardic on arrival. Afebrile. Placed on BiPAP in ER. Labs showed creatinine 1.4. BNP 492. Chest x-ray with pulmonary edema. Patient reports he ran out of Dataupia 4 days ago. History Past Medical Surgical Hx Additional medical history: Systolic CHF, diabetes mellitus type 2, hypertension, coronary artery disease s/ p stents, chronic hypoxemia on home oxygen Additional surgical history: None Family History Additional family history: Not contributory to current problem Social History Alcohol use: Denies EtOH use Drug use: Denies recreational drugs Smoking status for patients 13 years old or older: Unknown,if ever smoked Medication/Allergy-Vaccine Hx Allergies: Coded Allergies: No Known Allergies (12/23/21) Review of Systems Free Text ROS Notes Free Text ROS Notes: 14 point reviewed found to be negative except as mentioned in HPI OBJECTIVE VS/I O: Vital Signs Date Temp Pulse Resp B/P B/P Mean Pulse Ox FiO2 02/21-02/22 36.7-36.8 75-109 10-42 97-153/55-82 69-101 10-100 100 Last Documented: Result Date Time O2 Delivery Nasal cannula 02/22 1030 O2 Flow Rate 7 02/22 1030 Pulse Ox 94 02/22 1001 B/P 115/57 02/22 1001 B/P Mean 80 02/22 1001 Pulse 81 02/22 1001 Resp 26 02/22 1001 Temp 36.8 02/22 0835 FiO2 100 02/21 2015 24 hour I O ending at 0700: 02/21 1900 02/22 0700 Intake Total 500 Output Total Balance 500 Intake, Oral 500 Number Voids 1 Patient 112.4 kg Weight Weight Bed scale Measurement Method Patient Weight and BMI Weight (kg): 112.400 BMI: 35.6 Results Findings/Data: Laboratory Tests: 02/21 010 Blood Gas VBG pH 7.395 VBG pCO2 (MMHG) 64.0 VBG pO2 (10.0 - 50.0 MMHG) 41.8 VBG HCO3 (22.0 - 27.0 MMOL/L) 38.3 H VBG O2 Sat (Calc) (60.0 - 80.0 %) 75.6 VBG Base Excess (-4.0 - 4.0 MMOL/L) 11.0 H FiO2 100.0 Chemistry Sodium (134.0 - 147.0 mmol/l) 140 Potassium (3.6 - 5.2 mmol/L) 5.1 Chloride (98.0 - 107.0 mmol/l) 97 L Carbon Dioxide (21.0 - 33.0 mmol/l) 37.6 H Anion Gap (0 - 20) 10.5 BUN (7.0 - 18.0 mg/dl) 13 Creatinine (0.60 - 1.30 mg/dL) 1.48 H Estimated Creat Clear (>30 mL/min) 43 Glomerular Filtr Rate (mL/min) 50 Glucose (70.0 - 110.0 mg/dl) 206 H POC Glucose (70 - 110 mg/dL) 165 H Calcium (8.0 - 10.5 mg/dl) 8.8 Magnesium (1.8 - 2.4 mg/dl) 1.8 Troponin I High Sens (0 - 76 ng/L) 51 B-Natriuretic Peptide (5 - 100 PG/ML) 492 H Hematology WBC (4.5 - 11.0 K/mm3) 10.1 RBC (4.40 - 5.90 M/mm3) 4.09 L Hgb (13.0 - 17.0 gm/dL) 11.3 L Hct (36.0 - 48.0 %) 38.5 MCV (80.0 - 94.0 UM3) 94.1 H MCH (25.5 - 32.5 UUG) 27.6 MCHC (29.0 - 35.5 gm/dL) 29.4 RDW (11.5 - 15.0 %) 19.9 H Plt Count (150 - 400 K/mm3) 205 MPV (7.4 - 10.4 fl) 11.4 H Neut % (Auto) (49.0 - 76.0 %) 83.2 H Lymph % (Auto) (23.0 - 38.0 %) 7.4 L [place] % (Auto) (1.0 - 10.0 %) 8.1 Eos % (Auto) (1.0 - 5.0 %) 0.3 L Baso % (Auto) (0.0 - 1.0 %) 0.3 Neut # (Auto) (2.4 - 6.3 K/mm3) 8.4 H Lymph # (Auto) (1.2 - 4.0 K/mm3) 0.8 L [place] # (Auto) (0.0 - 0.6 K/mm3) 0.8 H Eos # (Auto) (0.0 - 0.7 K/MM3) 0.0 Baso # (Auto) (0.0 - 0.2 K/mm3) 0.0 Absolute Nucleated RBC (0.00 - 0.01 X10 3uL) 0.00 Immature Gran % (0.0 - 0.4 %) 0.7 H Nucleated RBC % (0.0 - 0.1 %) 0.0 Immature Gran # (0.00 - 0.07 x10 3/uL) 0.07 Laboratory Tests 02/22/242028: [Embedded Image Not Available] Radiology data: Recent Impressions: RADIOLOGY - XR CHEST 1 V 02/22 2036 Report Impression - Status: SIGNED Entered: 02/22/20242103 IMPRESSION: Mild pulmonary vascular congestion. Impression By: [email or web address] - Sunil Evans M.D. Free Text PE Notes Free Text PE Notes: PHYSICAL EXAMINATION General appearance: alert, awake, no acute distress Head/Eyes: atraumatic, normocephalic, PERRL, EOMI ENT: normal ear left, normal ear right, normal nose, normal pharynx Neck: full range of motion, supple/no meningismus Cardiovascular: normal S1/S2, regular rate rhythm Respiratory/chest: Decreased breath sounds bilaterally Abdomen: soft, non-tender, normal bowel sounds Genitourinary: deferred Extremities: moves all, no clubbing, no cyanosis, no edema Musculoskeletal: full range of motion, normal inspection Neuro/HAND STONER alert, oriented X 3, CNII-XII intact Skin: dry, intact Psychiatry: normal affect, normal judgment/insight, normal mood Diagnosis, Assessment Plan Free Text A P: Acute on chronic hypoxic respiratory failure Nasal cannula oxygen ICU monitoring S/p BiPAP Improving Acute on chronic systolic CHF with exacerbation. Ran out of Lasix 4 days ago Continue IV diuresis Goal-directed medical therapy Cardiology consult Troponin negative ----Prior echo in April 2023 with EF 35 to 39% LEELA on CKD stage III Monitor creatinine with diuresis and consult nephrology if worsening diabetes mellitus type 2 Continue home meds and adjust as needed Hypertension Continue home meds Coronary artery disease status post stents, continue home meds Lovenox for DVT prophylaxis at 1143 RPT #:[id number] END OF REPORT [facility] 2024-02-23 07:31:00 [facility] ([facility]) Clinical Note REPORT#:[id number] REPORT STATUS: Signed REPORT INITIALIZATION DATE:02/23/24 TIME: 730 PATIENT: WILLI MERRITT UNIT #: [id number] ROOM/BED: [place] [id number] : 52 AGE: 73 SEX: M ATTEND: Lauro Lane MD ADM AUTHOR: Skip Santos MD REPT SERVICE DT/TIME: 02/23/24 0731 * ALL edits or amendments must be made on the electronic/computer document * Clinical Note Note: Seen and examined Full note to follow at 0919 RPT #:[id number] END OF REPORT [facility] 2024-02-22 20:22:00 [facility] ([facility]) EMERGENCY PROVIDER REPORT REPORT#:[id number] REPORT STATUS: Signed DATE:02/22/24 TIME: 2021 PATIENT: WILLI MERRITT UNIT #: [id number] ROOM/BED: [place] [id number] AGE: 73 SEX: M PCP PHYS: No Primary or Family Physician SERVICE AUTHOR: Kevin Houston MD * ALL edits or amendments must be made on the electronic/computer document * HPI-General Illness Free Text HPI Notes Free Text HPI Notes 73-year-old male presents emergency department for hypoxia and shortness of breath History of CHF and COPD, reports difficulty breathing since yesterday. Patient is been taking Lasix at home and states they have been relatively effective, he has noted more swelling in his lower extremities Patient wears 6 L oxygen at home, when EMS arrived reportedly was 70% on 6 L nasal cannula, they transitioned him to 10 L nonrebreather, he received 2 breathing treatments, and breathing is improved, and oxygenation is at 93%. General Initial Greet Date/Time 02/22/242021 Presentation Chief Complaint Breathing problem Review of Systems ROS Statements All systems rev neg except as marked. Past Medical History - Adult Stated Complaint DIFFICULTY BREATHING Allergies Coded Allergies: No Known Allergies (12/23/21) Home Medications Active Scripts METOPROLOL TARTRATE (LOPRESSOR) 25 MG PO Q12H METOPROLOL TARTRATE (LOPRESSOR) 25 MG PO Q12H #60 TAB Prov: 11/01/21 ATORVASTATIN (LIPITOR) 80 MG PO DAILY ATORVASTATIN (LIPITOR) 80 MG PO DAILY #30 TABS Prov: 11/01/21 LISINOPRIL (ZESTRIL) 2.5 MG PO DAILY 30 Days #30 TAB Prov: 04/26/23 ASPIRIN 81 MG PO DAILY 90 Days #90 TABS Ref 3 Prov: 11/26/21 CLOPIDOGREL (PLAVIX) 75 MG PO DAILY 90 Days #90 TABS Ref 3 Prov: 12/24/21 Reported Medications INSULIN ASPART (NovoLOG CARTRIDGE (15mL)) 16 UNITS SUBQ BID IBUPROFEN (MOTRIN) 800 MG PO Q8H PRN PRN PAIN glipiZIDE (GLUCOTROL) 10 MG PO BID ACETAMINOPHEN/CODEINE (TYLENOL WITH CODEINE #3 300/30 MG) 1 TAB PO Q4H PRN PRN ACUTE PAIN FUROSEMIDE (LASIX) 80 MG PO DAILY ALBUTEROL (VENTOLIN HFA 90 MCG/ACT 18 GM) 1 PUFF INH BID Past Medical History: Reports: Coronary artery disease, Diabetes mellitus, Hypertension, Dyslipidemia. Additional Surgical History None Additional Family History Not contributory to current problem Physical Exam Vital Signs Vital Signs First Documented: Result Date Time Pulse Ox 98 05/14 2015 FiO2 100 02/21 2015 O2 Delivery BiPAP 02/21 2015 Pulse 101 02/21 2015 B/P 125/71 02/21 2019 B/P Mean 89 02/21 2019 Temp 36.7 02/21 2019 Resp 20 02/21 2019 Last Documented: Result Date Time Pulse Ox 100 02/21 2200 B/P 136/74 02/210 B/P Mean 94 02/21 2200 Pulse 100 02/21 2200 Resp 02/21 O2 Delivery BiPAP 02/21 2130 Temp 36.7 02/21 2019 FiO2 100 02/21 2015 Review of Vital Signs Reviewed Free Text PE Notes Free Text PE Notes General: A Ox3, well appearing, no apparent distress HEENT: normocephalic, atraumatic, PERRLA, oropharynx non-erythematous, moist oral mucosa Neck: supple, trachea midline, No significant JVD Pulm: nonlabored, poor air movement, bilateral lower lobe crackles notable CV: regular rate and rhythm, normal S1 and S2, no murmur, 2+ radial and pedal pulses b/l, 2+ pitting edema from the feet to the knee. GI: nondistended, nontender, no rebound tenderness or guarding MSK: no gross deformity, normal range of motion of all extremities Skin: no rash Neuro: CN II-XII intact, full strength and sensation throughout, normal FNF, no pronator drift, Psych: calm and cooperative Interpretation Diagnostics Lab Results Interpretation Results Laboratory Tests 02/22/242028: [Embedded Image Not Available] Laboratory Tests: 02/21 Blood Gas VBG pH 7.395 VBG pCO2 (MMHG) 64.0 VBG pO2 (10.0 - 50.0 MMHG) 41.8 VBG HCO3 (22.0 - 27.0 MMOL/L) 38.3 H VBG O2 Sat (Calc) (60.0 - 80.0 %) 75.6 VBG Base Excess (-4.0 - 4.0 MMOL/L) 11.0 H FiO2 100.0 Chemistry Sodium (134.0 - 147.0 mmol/l) 140 Potassium (3.6 - 5.2 mmol/L) 5.1 Chloride (98.0 - 107.0 mmol/l) 97 L Carbon Dioxide (21.0 - 33.0 mmol/l) 37.6 H Anion Gap (0 - 20) 10.5 BUN (7.0 - 18.0 mg/dl) 13 Creatinine (0.60 - 1.30 mg/dL) 1.48 H Estimated Creat Clear (>30 mL/min) 43 Glomerular Filtr Rate (mL/min) 50 Glucose (70.0 - 110.0 mg/dl) 206 H Calcium (8.0 - 10.5 mg/dl) 8.8 Magnesium (1.8 - 2.4 mg/dl) 1.8 Troponin I High Sens (0 - 76 ng/L) 51 B-Natriuretic Peptide (5 - 100 PG/ML) 492 H Hematology WBC (4.5 - 11.0 K/mm3) 10.1 RBC (4.40 - 5.90 M/mm3) 4.09 L Hgb (13.0 - 17.0 gm/dL) 11.3 L Hct (36.0 - 48.0 %) 38.5 MCV (80.0 - 94.0 UM3) 94.1 H MCH (25.5 - 32.5 UUG) 27.6 MCHC (29.0 - 35.5 gm/dL) 29.4 RDW (11.5 - 15.0 %) 19.9 H Plt Count (150 - 400 K/mm3) 205 MPV (7.4 - 10.4 fl) 11.4 H Neut % (Auto) (49.0 - 76.0 %) 83.2 H Lymph % (Auto) (23.0 - 38.0 %) 7.4 L [place] % (Auto) (1.0 - 10.0 %) 8.1 Eos % (Auto) (1.0 - 5.0 %) 0.3 L Baso % (Auto) (0.0 - 1.0 %) 0.3 Neut # (Auto) (2.4 - 6.3 K/mm3) 8.4 H Lymph # (Auto) (1.2 - 4.0 K/mm3) 0.8 L [place] # (Auto) (0.0 - 0.6 K/mm3) 0.8 H Eos # (Auto) (0.0 - 0.7 K/MM3) 0.0 Baso # (Auto) (0.0 - 0.2 K/mm3) 0.0 Absolute Nucleated RBC (0.00 - 0.01 X10 3uL) 0.00 Immature Gran % (0.0 - 0.4 %) 0.7 H Nucleated RBC % (0.0 - 0.1 %) 0.0 Immature Gran # (0.00 - 0.07 x10 3/uL) 0.07 Recent Impressions: RADIOLOGY - XR CHEST 1 V 02/22 2036 Report Impression - Status: SIGNED Entered: 02/22/20242103 IMPRESSION: Mild pulmonary vascular congestion. Impression By: [email or web address] Luis E Evans M.D. Re-Evaluation MDM Free Text MDM Notes Additional Text 73-year-old male presents emergency department for hypoxia and shortness of breath History of CHF and COPD, reports difficulty breathing since yesterday. Patient is been taking Lasix at home and states they have been relatively effective, he has noted more swelling in his lower extremities Patient wears 6 L oxygen at home, when EMS arrived reportedly was 70% on 6 L nasal cannula, they transitioned him to 10 L nonrebreather, he received 2 breathing treatments, and breathing is improved, and oxygenation is at 93%. Patient with history as above presented with shortness of breath, hypoxia. History obtained from patient. Vital sign interpreted by me show mild tachycardia. Labs reviewed. Elevated BNP, troponins within normal limits Independently reviewed imaging. Chest x-ray shows pulmonary vascular congestion Reviewed external records. EKG: Ventricularly paced rhythm, rate 101, occasional PVCs, no ST segment elevation or depression, no significant T wave abnormalities Differential diagnosis considered CHF exacerbation, hypoxic respiratory failure. Overall presentation is consistent with CHF exacerbation hypoxic respiratory failure. Low suspicion for pneumonia, COPD exacerbation. Patient was treated with BiPAP, 60 mg IV Lasix with improvement in symptoms. Patient was admitted to ICU Dr. Melgar consulted. Patient admitted to hospitalist service Critical Care Procedure Note Authorized and Performed by: Kevin Houston MD Total critical care time: Approximately 40 minutes Due to a high probability of clinically significant, life threatening deterioration, the patient required my highest level of preparedness to intervene emergently and I personally spent this critical care time directly and personally managing the patient. This critical care time included obtaining a history; examining the patient; pulse oximetry; ordering and review of studies; arranging urgent treatment with development of a management plan; evaluation of patient's response to treatment; frequent reassessment; and, discussions with other providers. This critical care time was performed to assess and manage the high probability of imminent, life-threatening deterioration that could result in multi-organ failure. It was exclusive of separately billable procedures and treating other patients and teaching time. Please see MDM section and the rest of the note for further information on patient assessment and treatment. ED Course Medication(s) Ordered Medication(s) Ordered: Electrolytic, Caloric, And Sven Sig/Lala Start time Last Medication Dose Route Stop Time Status Admin Furosemide 60 MG X1ED STA 02/21 2023 DC 02/21 IV 02/21 Patient Discharge Departure Vital Signs/Condition Vital Signs First Documented: Result Date Time Pulse Ox 98 02/21 2015 FiO2 100 02/21 2015 O2 Delivery BiPAP 02/21 2015 Pulse 101 02/21 2015 B/P 125/71 02/21 2019 B/P Mean 89 02/21 2019 Temp 36.7 02/21 2019 Resp 20 02/21 2019 Last Documented: Result Date Time Pulse Ox 100 02/21 2200 B/P 136/74 02/21 2200 B/P Mean 94 02/21 2200 Pulse 100 02/21 2200 Resp 19 02/21 2200 O2 Delivery BiPAP 02/21 2130 Temp 36.7 02/21 2019 FiO2 100 02/21 2015 All vital signs available at the time of this entry have been reviewed. Clinical Impression Clinical Impression Primary Impression: CHF exacerbation Secondary Impressions: Hypoxic respiratory failure Disposition Decision Hospitalize Hosp Physician Name Lauro Lane MD Hosp Physician Hospitalist Request Time 2328 Request Date 02/22/24 )( Accepts Hospitalization Yes )( Reason for Hospitalization CHF exacerbation, hypoxic respiratory failure )( Accepted Time 2328 )( Accepted Date 02/22/24 Call Information will see patient at 2330 RPT #:[id number] END OF REPORT [facility] 2023-04-26 14:12:00 [facility] ([facility]) Discharge Summary REPORT#:[id number] REPORT STATUS: Signed DATE:04/26/23 TIME: 1412 PATIENT: WILLI MERRITT UNIT #: [id number] ROOM[place]BED: [facility] [place] : 52 AGE: 72 SEX: M ATTEND: Marcela Samuel MD ADM AUTHOR: Prerna Lentz APRN * ALL edits or amendments must be made on the electronic/computer document * PCP PCP Discharge to: home with home health [facility] General Information Discharge date: 04/26/23 Discharge diagnosis: Acute on chronic systolic HF Uncontrolled DM 2 w other circulatory complications HTN heart disease w HF CAD SP Stents acute on chronic respiratory failure -- hypoxia Hospital course: 72-year-old male with a history of CHF, diabetes, hypertension, CAD status post stents presents to the emergency department as a transfer for CHF/heart failure. Patient states he began having shortness of breath and bilateral lower extremity swelling 2 days prior to arrival and his symptoms progressed. At the outside facility he was started on BiPAP and given 40 mg of IV Lasix. He was admitted to ICU on bipap and diuretics were continued. He then transfered to the medical floor. Patient weaned to 10L nasal cannula; he uses oxygen/bipap at home. Medications adjusted for his uncontrolled diabetes. Patient was discharged home after improvement with outpatient followup. Consultants: cardiology, pulmonary, surgery-oncology Med Rec Med Rec Discharge meds: Stop taking the following medications: LISINOPRIL (ZESTRIL) 5 MG TAB 5 MILLIGRAM ORAL EVERY 12 HOURS. Qty = 60 AMIODARONE (PACERONE) 200 MG TAB 200 MILLIGRAM ORAL TWICE DAILY. Qty = 60 TERAZOSIN (HYTRIN) 10 MG CAP 10 MILLIGRAM ORAL BEDTIME. FUROSEMIDE (LASIX) 40 MG TAB 40 MILLIGRAM ORAL BEDTIME. Continue taking these medications: INSULIN ASPART (NovoLOG CARTRIDGE (15mL)) (Unknown Strength) CARTRIDGE 16 UNITS SUBCUTANEOUS TWICE DAILY. METOPROLOL TARTRATE (LOPRESSOR) 50 MG TAB 25 MILLIGRAM ORAL EVERY 12 HOURS. Qty = 60 ATORVASTATIN (LIPITOR) 80 MG TAB 80 MILLIGRAM ORAL DAILY. Qty = 30 IBUPROFEN (MOTRIN) 800 MG TAB 800 MILLIGRAM ORAL EVERY 8 HR NEEDED. as needed for PAIN glipiZIDE (GLUCOTROL) 10 MG TAB 10 MILLIGRAM ORAL TWICE DAILY. ACETAMINOPHEN/CODEINE (TYLENOL WITH CODEINE #3 300/30 MG) 300 MG-30 MG TAB 1 TABLET ORAL EVERY 4 HOURS NEEDED. as needed for ACUTE PAIN FUROSEMIDE (LASIX) 80 MG TAB 80 MILLIGRAM ORAL DAILY. ALBUTEROL (VENTOLIN HFA 90 MCG/ACT 18 GM) 90 MCG INHALER 1 PUFF INHALATION TWICE DAILY. ASPIRIN (ASPIRIN) 81 MG TAB.CHEW 81 MILLIGRAM ORAL DAILY. Days = 90 Qty = 90 CLOPIDOGREL (PLAVIX) 75 MG TAB 75 MILLIGRAM ORAL DAILY. Days = 90 Qty = 90 Start taking the following new medications: LISINOPRIL (ZESTRIL) 2.5 MG TAB 2.5 MILLIGRAM ORAL DAILY. Days = 30 Qty = 30 No Refills Objective VS/I O Last Documented: Result Date Time Pulse Ox 91 04/26 751 O2 Delivery High flow nasal cannula 04/26 751 O2 Flow Rate 10 04/26 075 Pulse 60 04/26 0659 Resp 17 04/26 0659 B/P 101/61 04/26 0352 B/P Mean 74.2 04/26 0352 Temp 36.6 04/26 0352 FiO2 70 04/24 0831 24 hour I O ending at 0700: 04/26 0700 04/25 1900 Intake Total 500 Output Total 200 700 Balance -200 -200 Intake, Oral 500 Number 1 Bowel Movements Output, Urine 200 700 Patient 115.9 kg Weight PATIENT WEIGHT: Weight (lb): 255 Weight (oz): 8.25 Weight (kg): 115.900 Results Findings/Data: Laboratory Tests: 04/26 04/26 04/25 04/25 1135 0709 1858 1750 Chemistry POC Glucose (70 - 110 MG/DL) 126 H 115 H 205 H 169 H Discharge Instructions PCP )( Discharge to: Home/Self Care Discharge Instructions Additional Discharge Routines: PCP Follow-Up )( Diet: Diabetic, Cardiac Follow-up Appointments PCP follow up: PCP: Marcela Samuel MD PCP follow up timeframe: In 1-2 weeks Consulting provider 1: Provider 1: Elizabeth David MD Specialty: Cardiology Consult follow up timeframe: In 1-2 weeks Consulting provider 2: Provider 2: Poncho Noriega MD Specialty: Pulmonary Disease Follow up timeframe: In 1-2 weeks at 1122 at 1742 [facility] #:[id number] END OF REPORT [facility] 2023-04-26 13:08:00 [facility] ([facility]) Pulmonology Progress Note REPORT#:[id number] REPORT STATUS: Signed DATE:04/26/23 TIME: 1308 PATIENT: WILLI MERRITT UNIT #: [id number] ROOM/BED: [place] [id number] : 52 AGE: 72 SEX: M ATTEND: Marcela Samuel MD ADM AUTHOR: Ankush Alexander MD * ALL edits or amendments must be made on the electronic/computer document * Subjective Chief complaint: Patient is persistently hypoxic on heated high flow nasal cannula during my examination 90% FiO2 50 L/minute with sats 90 91 Per discussion with RN patient is apparently noncompliant with oxygen therapy. Review of Systems ROS Constitutional: Denies: fatigue, fever, lethargy. Respiratory: Denies: non productive cough, pleurisy, pneumonia. Cardiovascular: Denies: edema, orthopnea, parox nocturnal dyspnea. Heme: Denies: adenopathy, bleeding, bruising, petechiae, other. Objective General VS/I O: Last Documented: Result Date Time Pulse Ox 91 04/26 0751 O2 Delivery High flow nasal cannula 04/26 0751 O2 Flow Rate 10 04/26 0751 Pulse 60 04/26 0659 Resp 17 04/26 0659 B/P 101/61 04/26 0352 B/P Mean 74.2 04/26 0352 Temp 36.6 04/26 0352 FiO2 70 04/24 0831 24 hour I O ending at 0700: 04/26 0700 04/25 1900 Intake Total 500 Output Total 200 700 Balance -200 -200 Intake, Oral 500 Number 1 Bowel Movements Output, Urine 200 700 Patient 115.9 kg Weight PATIENT WEIGHT: Weight (lb): 255 Weight (oz): 8.25 Weight (kg): 115.900 Medications: Active Meds + DC'd Last 24 Hrs Enoxaparin Sodium (lovENOX) 40 MG DAILY 1700 SUBQ Lisinopril (ZESTRIL) 2.5 MG DAILY PO Glipizide (GLUCOTROL) 5 MG BID AC PO Neomycin/Polymyxin/Bacitracin (NEOSPORIN) 0.94 GM Q12HR TOPICAL (CKD) Acetazolamide (DIAMOX) 250 MG BID IV Sterile Water (WATER FOR INJECTION) 5 ML ASDIR PRN IV Dextrose/Water (DEXTROSE 10% IN WATER) 125 ML ASDIR PRN IV (CKD) Dextrose/Water (DEXTROSE 10% IN WATER) 250 ML ASDIR PRN IV (CKD) Glucagon (GLUCAGON) 1 MG ASDIR PRN IM Albuterol Sulfate (ALBUTEROL SULFATE) 2.5 MG RTQ4H PRN PRN NEB Insulin Human Lispro (HUMALOG) 0 AC HS SUBQ Aspirin (ASPIRIN) 81 MG DAILY PO Clopidogrel Bisulfate (Plavix) 75 MG DAILY PO Atorvastatin Calcium (LIPITOR) 80 MG BEDTIME PO Metoprolol Tartrate (LOPRESSOR) 25 MG Q12H PO Free Text Obj Notes Free Text Obj Notes: General appearance: Awake Head/Eyes: atraumatic, normocephalic, PERRLA Neck: full range of motion, non-tender, normal thyroid Cardiovascular: normal heart sounds, normal S1/S2, regular rate rhythm Respiratory/chest: aerating well, clear to auscultation, symmetric expansion Abdomen: soft, non-tender, normal bowel sounds Genitourinary: no bladder distention, no flank pain Extremities: No edema, moves all, normal capillary refill, no calf tenderness Musculoskeletal: full range of motion, normal inspection, painless range of motion, straight leg raise neg Skin: dry, intact, normal color Diagnosis, Assessment Plan Free Text A P: 1. Acute hypercapnic respiratory failure Chronic respiratory failure with hypoxia Obesity ventilation syndrome/obstructive sleep apnea Acute pulmonary edema Acute exacerbation of chronic systolic heart failure Respiratory status currently improving, continue oxygen and BiPAP as tolerated CTA chest negative for PE, right upper lobe posterior changes noted consistent with infection, inflammation Ultrasound negative for DVT in both lower extremities Reduce Lovenox to prophylactic dose Discharge planning he has home BiPAP machine and nebulizer and oxygen Consultants: cardiology, pulmonary, surgery-oncology at 1309 RPT #:[id number] END OF REPORT [facility] 2023-04-26 10:05:00 [facility] ([facility]) Cardiology Progress Note REPORT#:[id number] REPORT STATUS: Signed DATE:04/26/23 TIME: 1005 PATIENT: WILLI MERRITT UNIT #: [id number] ROOM/BED: [place] [address] : 52 AGE: 72 SEX: M ATTEND: Marcela Samuel MD ADM AUTHOR: Jacqui Mcfadden * ALL edits or amendments must be made on the electronic/computer document * Subjective Chief complaint: Denies chest pain Objective General VS/I O: 24 hour I O ending at 0700: 04/26 0700 04/25 1900 Intake Total 500 Output Total 200 700 Balance -200 -200 Intake, Oral 500 Number 1 Bowel Movements Output, Urine 200 700 Patient 115.9 kg Weight Vital Signs: Date Time Temp Pulse Resp B/P B/P Pulse O2 O2 Flow FiO2 Mean Ox Delivery Rate 04/26 0659 60 17 100 04/26 0645 60 20 100 04/26 0545 59 21 100 04/26 0445 60 19 90 04/26 0352 97.9 60 18 101/61 74.2 93 Nasal cannula 04/26 0345 60 24 76 04/26 0245 59 15 100 04/26 0230 8 04/26 0145 59 15 100 04/26 0045 59 26 99 04/25 2345 59 29 98 04/25 2308 98.1 60 19 112/60 77.4 91 Nasal cannula 04/25 2245 61 27 81 04/25 2145 60 20 100 04/25 2045 60 21 93 04/25 1945 59 20 100 04/25 1902 98.1 60 17 104/63 76.7 96 Nasal cannula 04/25 1845 59 19 99 04/25 1626 98.1 20 20 129/60 0.0 100 Nasal cannula PATIENT WEIGHT: Weight (lb): 255 Weight (oz): 8.25 Weight (kg): 115.900 Medications: Active Meds + DC'd Last 24 Hrs Enoxaparin Sodium (lovENOX) 40 MG DAILY 1700 SUBQ Lisinopril (ZESTRIL) 2.5 MG DAILY PO Glipizide (GLUCOTROL) 5 MG BID AC PO Neomycin/Polymyxin/Bacitracin (NEOSPORIN) 0.94 GM Q12HR TOPICAL (CKD) Acetazolamide (DIAMOX) 250 MG BID IV Sterile Water (WATER FOR INJECTION) 5 ML ASDIR PRN IV Dextrose/Water (DEXTROSE 10% IN WATER) 125 ML ASDIR PRN IV (CKD) Dextrose/Water (DEXTROSE 10% IN WATER) 250 ML ASDIR PRN IV (CKD) Glucagon (GLUCAGON) 1 MG ASDIR PRN IM Albuterol Sulfate (ALBUTEROL SULFATE) 2.5 MG RTQ4H PRN PRN NEB Insulin Human Lispro (HUMALOG) 0 AC HS SUBQ Aspirin (ASPIRIN) 81 MG DAILY PO Clopidogrel Bisulfate (Plavix) 75 MG DAILY PO Atorvastatin Calcium (LIPITOR) 80 MG BEDTIME PO Metoprolol Tartrate (LOPRESSOR) 25 MG Q12H PO Physical Exam General appearance: no acute distress Head/Eyes: atraumatic ENT: moist mucosal membranes Neck: no JVD Cardiovascular: CV assessment: regular rate and rhythm Respiratory: crackles, decreased breath sounds Abdomen: soft, non-tender Lower extremity: LE assessment: edema Review of Systems All systems rev neg: except as marked Diagnosis, Assessment Plan Free Text DxA P Notes Free Text DxA P Notes: TTE showed: 1. Left ventricle: The cavity size is moderately dilated. Wall thickness is normal. Systolic function is moderately reduced. The estimated ejection fraction is 35-39%. Left ventricular diastolic function parameters are indeterminate. 2. Right ventricle: TAPSE is 1.6 cm. Systolic function is low normal. 3. Mitral valve: There is mild regurgitation. 4. Pericardium, extracardiac: There is no pericardial effusion. ASSESSMENT AND PLAN: 1. 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 2. Dyspnea: Last echocardiogram done in 2021 showed ejection fraction of 35-40%, so the patient has [id number] systolic heart failure. Diuresis with IV lasix Discussed the importance of compliance with medications/ follow up as well as fluid salt restriction. 3. Coronary artery disease, currently asymptomatic. MA ruled out. Plan: We will continue aspirin, Plavix and statins. 4. Hypertension. Continue metoprolol and lisinopril. 5. Dyslipidemia. Continue statins. Will continue to diurese the patient. Patient wants to go home. Will defer discharge planning to the Primary service. POC discussed with Dr. Martínez at 1006 at 1014 RPT #:[id number] END OF REPORT [facility] 2023-04-26 09:16:00 [facility] ([facility]) Hospitalist Progress Note REPORT#:[id number] REPORT STATUS: Signed DATE:04/26/23 TIME: 915 PATIENT: WILLI MERRITT UNIT #: [id number] ROOM/BED: [place] [address] : 52 AGE: 72 SEX: M ATTEND: Marcela Samuel MD ADM AUTHOR: Prerna Lentz APRN * ALL edits or amendments must be made on the electronic/computer document * Subjective Chief complaint: he is on high flow O2. he refuse bipap and telflex HPI: 72-year-old male with a history of diabetes, hypertension, CAD status post stents presents to the emergency department as a transfer for CHF/heart failure. Patient states he began having shortness of breath and bilateral lower extremity swelling 2 days ago and his symptoms progressed. At the outside facility he was started on BiPAP and given 40 mg of IV Lasix. Patient also endorsed some chest pain which has now resolved. Denies fever, chills, abdominal pain, nausea, vomiting, diarrhea, constipation, melena, hematochezia. Review of Systems Constitutional: Denies: chills, fever. Respiratory: Reports: SOB. Denies: productive cough (sputum). Cardiovascular: Denies: chest pain, palpitations. GI: Denies: abdominal pain, vomiting. Neuro: Denies: dizziness, headache. All systems rev neg: except as noted Objective General VS/I O: Vital Signs: Date Time Temp Pulse Resp B/P B/P Pulse O2 O2 Flow FiO2 Mean Ox Delivery Rate 04/26 0659 60 17 100 07/17 0645 60 20 100 04/26 0545 59 21 100 04/26 0445 60 19 90 04/26 0352 36.6 60 18 101/61 74.2 93 Nasal cannula 04/26 0345 60 24 76 04/26 0245 59 15 100 04/26 0230 8 04/26 0145 59 15 100 04/26 0045 59 26 99 04/25 2345 59 29 98 04/25 2308 36.7 60 19 112/60 77.4 91 Nasal cannula 04/25 2245 61 27 81 04/25 2145 60 20 100 04/25 2045 60 21 93 04/25 1945 59 20 100 04/25 1902 36.7 60 17 104/63 76.7 96 Nasal cannula 04/25 1845 59 19 99 04/25 1626 36.7 20 20 129/60 0.0 100 Nasal cannula 04/25 1000 95 High flow 12 nasal cannula 24 hour I O ending at 0700: 04/26 0700 04/25 1900 Intake Total 500 Output Total 200 700 Balance -200 -200 Intake, Oral 500 Number 1 Bowel Movements Output, Urine 200 700 Patient 115.9 kg Weight PATIENT WEIGHT: Weight (lb): 255 Weight (oz): 8.25 Weight (kg): 115.900 Medications: Active Meds + DC'd Last 24 Hrs Enoxaparin Sodium (lovENOX) 40 MG DAILY 1700 SUBQ Lisinopril (ZESTRIL) 2.5 MG DAILY PO Glipizide (GLUCOTROL) 5 MG BID AC PO Neomycin/Polymyxin/Bacitracin (NEOSPORIN) 0.94 GM Q12HR TOPICAL (CKD) Acetazolamide (DIAMOX) 250 MG BID IV Sterile Water (WATER FOR INJECTION) 5 ML ASDIR PRN IV Dextrose/Water (DEXTROSE 10% IN WATER) 125 ML ASDIR PRN IV (CKD) Dextrose/Water (DEXTROSE 10% IN WATER) 250 ML ASDIR PRN IV (CKD) Glucagon (GLUCAGON) 1 MG ASDIR PRN IM Albuterol Sulfate (ALBUTEROL SULFATE) 2.5 MG RTQ4H PRN PRN NEB Insulin Human Lispro (HUMALOG) 0 AC HS SUBQ Aspirin (ASPIRIN) 81 MG DAILY PO Clopidogrel Bisulfate (Plavix) 75 MG DAILY PO Atorvastatin Calcium (LIPITOR) 80 MG BEDTIME PO Metoprolol Tartrate (LOPRESSOR) 25 MG Q12H PO Physical Exam General appearance: alert, awake, oriented, no acute distress, mental status normal, no respiratory distress Head/Eyes: atraumatic, clear cornea, EOMI, normal conjunctiva/sclera, normal eyelids/periorb., normocephalic, PERRL ENT: normal dentition, normal ear left, normal ear right, normal nose, normal pharynx, normal sinus Neck: full range of motion, non-tender, normal thyroid, supple/no meningismus, no bruit/NL carotids, no JVD, no masses or swelling Cardiovascular: normal capillary refill, regular rate rhythm Respiratory: on oxygen (NC), clear to auscultation, no distress Abdomen: non-tender, normal bowel sounds, soft, no distention, no guarding, no hernia, no mass/organomegaly, no rebound Extremities: edema, moves all, normal capillary refill, normal range of motion Musculoskeletal: normal inspection Neuro/HAND STONER: alert, oriented X 3 Skin: dry, intact Psychiatry: normal affect, normal judgment/insight, normal mood, not homicidal, not suicidal, no hallucinations Results Findings/Data: Laboratory Tests 04/26 04/25 04/25 04/25 0709 1858 1750 1201 Chemistry POC Glucose (70 - 110 MG/DL) 115 H 205 H 169 H 152 H Diagnosis, Assessment Plan Consultants: cardiology, pulmonary, surgery-oncology Plan discussed with: patient, nurse Free Text DxA P Notes Free text DxA P notes: Impression: 72 yo male admitted w Acute on chronic systolic HF 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 Cardiology consult on case, echo noted with EF 35-39%. Hyperglycemic, change regular diet to ADA. Start medium dose sliding scale. He takes Novolog BID at home. Continue accuchecks. Labs AM, BMP, lipid, A1C. Cardiac monitoring. 04/19- he improve . no cp no sob -- lasix iv -- FS --under control on glyburite -- DM--poor control 04/20- sob -- on high flow O2 -- neb --lasix iv q 6 h -- FS-- fair control -- continue monitor in CV imcu 04/21- he remain sob and hypoxia -- on bipap all the times accept for meal -- continue lasix iv -- CXR -- worse edema -- neb -- bmp -- am -- monitor urine output --2500 cc 04/22- he is on high flow O2 now -- bipap at night -- ABG show worsening hypercapnia and metabolic alkalosis stop lasix as pulmon -- continue monitor respiratory status 04/23- he is on high flow O2 -- bipap at home -- metabolic alkalosis improve -- on diamox iv -- CTA chest --order 04/24- he refuse bipap and teleflex --on Nc O2 -- 6-8 L -- FS --low -- adjust glyburide -- 5 mg bid =-- BP --low -- adjust lisinopril -- monitor FS and BP -- diamox iv -- lab am 04/25- he is on high flow O2-- 12 L -- continue diamox iv --BP- stable -- FS -- well control -- continue current management 04/26 10L O2 today. Sputum culture normal respirtory flaquito. On IV diamox. at 1238 at 4906 RPT #:[id number] END OF REPORT [facility] 2023-04-25 16:17:00 [facility]) Cardiology Progress Note REPORT#:[id number] REPORT STATUS: Signed DATE:04/25/23 TIME: 1616 PATIENT: WILLI MERRITT UNIT #: [id number] ROOM/BED: [place] [address] : 52 AGE: 72 SEX: M ATTEND: Marcela Samuel MD ADM AUTHOR: Elizabeth David MD * ALL edits or amendments must be made on the electronic/computer document * Subjective Chief complaint: Denies chest pain. breathing is improving. Objective General VS/I O: 24 hour I O ending at 0700: 04/25 0700 04/24 1900 Intake Total Output Total 620 Balance -620 Output, Urine 620 Patient 115.5 kg Weight Weight Standing scale Measurement Method Vital Signs: Date Time Temp Pulse Resp B/P B/P Pulse O2 O2 Flow FiO2 Mean Ox Delivery Rate 04/25 0421 98.1 60 20 102/57 72.2 97 04/25 0237 High flow 12 nasal cannula 04/25 0018 98.1 63 20 125/66 85.2 97 04/24 1952 60 14 100 Nasal cannula 04/24 1800 60 19 92 04/24 1700 60 18 95 PATIENT WEIGHT: Weight (lb): 254 Weight (oz): 10.14 Weight (kg): 115.500 Medications: Active Meds + DC'd Last 24 Hrs Enoxaparin Sodium (lovENOX) 40 MG DAILY 1700 SUBQ Lisinopril (ZESTRIL) 2.5 MG DAILY PO Glipizide (GLUCOTROL) 5 MG BID AC PO Neomycin/Polymyxin/Bacitracin (NEOSPORIN) 0.94 GM Q12HR TOPICAL (CKD) Enoxaparin Sodium (lovENOX) 120 MG BID SUBQ (DC) Acetazolamide (DIAMOX) 250 MG BID IV Sterile Water (WATER FOR INJECTION) 5 ML ASDIR PRN IV Dextrose/Water (DEXTROSE 10% IN WATER) 125 ML ASDIR PRN IV (CKD) Dextrose/Water (DEXTROSE 10% IN WATER) 250 ML ASDIR PRN IV (CKD) Glucagon (GLUCAGON) 1 MG ASDIR PRN IM Albuterol Sulfate (ALBUTEROL SULFATE) 2.5 MG RTQ4H PRN PRN NEB Glipizide (GLUCOTROL) 10 MG BID PO (DC) Insulin Human Lispro (HUMALOG) 0 AC HS SUBQ Aspirin (ASPIRIN) 81 MG DAILY PO Clopidogrel Bisulfate (Plavix) 75 MG DAILY PO Atorvastatin Calcium (LIPITOR) 80 MG BEDTIME PO Lisinopril (lisinopriL) 5 MG Q12HR PO (DC) Metoprolol Tartrate (LOPRESSOR) 25 MG Q12H PO Physical Exam General appearance: obese, alert, awake Head/Eyes: atraumatic ENT: moist mucosal membranes Neck: no JVD Cardiovascular: CV assessment: regular rate and rhythm Respiratory: crackles, decreased breath sounds Abdomen: soft, non-tender Lower extremity: LE assessment: edema Results Findings/Data: Laboratory Tests 04/2515 1201 9073 9182 0696 Chemistry Sodium (134 - 147 mEq/L) 137 Potassium (3.4 - 5.0 mEq/L) 3.8 Chloride (100 - 108 mEq/L) 101 Carbon Dioxide (21 - 33 mEq/l) 33 Anion Gap (0 - 20) 7 BUN (7 - 18 mg/dL) 20 H Creatinine (0.6 - 1.3 mg/dL) 1.3 Glomerular Filtr Rate (70 - 80) 59.1 L Glucose (70 - 110 mg/dL) 179 H POC Glucose (70 - 110 MG/DL) 152 H 171 H 128 H Calcium (8.0 - 10.5 mg/dL) 8.9 Diagnosis, Assessment Plan Free Text DxA P Notes Free Text DxA P Notes: TTE showed: 1. Left ventricle: The cavity size is moderately dilated. Wall thickness is normal. Systolic function is moderately reduced. The estimated ejection fraction is 35-39%. Left ventricular diastolic function parameters are indeterminate. 2. Right ventricle: TAPSE is 1.6 cm. Systolic function is low normal. 3. Mitral valve: There is mild regurgitation. 4. Pericardium, extracardiac: There is no pericardial effusion. ASSESSMENT AND PLAN: 1. 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 2. Dyspnea: Last echocardiogram done in 2021 showed ejection fraction of 35-40%, so the patient has [id number] systolic heart failure. Diuresis with IV lasix Discussed the importance of compliance with medications/ follow up as well as fluid salt restriction. 3. Coronary artery disease, currently asymptomatic. MA ruled out. Plan: We will continue aspirin, Plavix and statins. 4. Hypertension. Continue metoprolol and lisinopril. 5. Dyslipidemia. Continue statins. Will continue to diurese the patient. Patient wants to go home. Will defer discharge planning to the Primary service. at 0797 RPT #:[id number] END OF REPORT [facility] 2023-04-25 12:05:00 [facility] Hospitalist Progress Note REPORT#:[id number] REPORT STATUS: Signed DATE:04/25/23 TIME: 1205 PATIENT: WILLI MERRITT UNIT #: [id number] ROOM/BED: [address] : 52 AGE: 72 SEX: M ATTEND: Marcela Samuel MD ADM AUTHOR: Tamara Esposito MD * ALL edits or amendments must be made on the electronic/computer document * Subjective Chief complaint: he is on high flow O2 . he refuse bipap and telflex HPI: 72-year-old male with a history of diabetes, hypertension, CAD status post stents presents to the emergency department as a transfer for CHF/heart failure. Patient states he began having shortness of breath and bilateral lower extremity swelling 2 days ago and his symptoms progressed. At the outside facility he was started on BiPAP and given 40 mg of IV Lasix. Patient also endorsed some chest pain which has now resolved. Denies fever, chills, abdominal pain, nausea, vomiting, diarrhea, constipation, melena, hematochezia. Review of Systems Constitutional: Reports: generalized weakness. Denies: lethargy. Respiratory: Reports: SOB. Denies: wheezing. Cardiovascular: Reports: UGALDE (dyspnea on exertion). Denies: edema, orthopnea, palpitations. GI: Denies: abdominal pain, nausea, vomiting. Objective General VS/I O: Vital Signs: Date Time Temp Pulse Resp B/P B/P Pulse O2 O2 Flow FiO2 Mean Ox Delivery Rate 04/25 0421 36.7 60 20 102/57 72.2 97 04/25 0237 High flow 12 nasal cannula 04/25 0018 36.7 63 20 125/66 85.2 97 04/24 1952 60 14 100 Nasal cannula 04/24 1800 60 19 92 04/24 1700 60 18 95 04/24 1600 61 21 100 04/24 1534 96 High flow 10 nasal cannula 04/24 1530 99 High flow 12 nasal cannula 04/24 1509 36.7 60 16 98/54 69.1 97 Nasal cannula 04/24 1500 60 26 96 04/24 1400 60 22 90 04/24 1300 61 16 100 24 hour I O ending at 0700: 04/25 0700 04/24 1900 Intake Total Output Total 620 Balance -620 Output, Urine 620 Patient 115.5 kg Weight Weight Standing scale Measurement Method PATIENT WEIGHT: Weight (lb): 254 Weight (oz): 10.14 Weight (kg): 115.500 Medications: Active Meds + DC'd Last 24 Hrs Enoxaparin Sodium (lovENOX) 40 MG DAILY 1700 SUBQ Lisinopril (ZESTRIL) 2.5 MG DAILY PO Glipizide (GLUCOTROL) 5 MG BID AC PO Neomycin/Polymyxin/Bacitracin (NEOSPORIN) 0.94 GM Q12HR TOPICAL (CKD) Enoxaparin Sodium (lovENOX) 120 MG BID SUBQ (DC) Acetazolamide (DIAMOX) 250 MG BID IV Sterile Water (WATER FOR INJECTION) 5 ML ASDIR PRN IV Dextrose/Water (DEXTROSE 10% IN WATER) 125 ML ASDIR PRN IV (CKD) Dextrose/Water (DEXTROSE 10% IN WATER) 250 ML ASDIR PRN IV (CKD) Glucagon (GLUCAGON) 1 MG ASDIR PRN IM Albuterol Sulfate (ALBUTEROL SULFATE) 2.5 MG RTQ4H PRN PRN NEB Glipizide (GLUCOTROL) 10 MG BID PO (DC) Insulin Human Lispro (HUMALOG) 0 AC HS SUBQ Aspirin (ASPIRIN) 81 MG DAILY PO Clopidogrel Bisulfate (Plavix) 75 MG DAILY PO Atorvastatin Calcium (LIPITOR) 80 MG BEDTIME PO Lisinopril (lisinopriL) 5 MG Q12HR PO (DC) Metoprolol Tartrate (LOPRESSOR) 25 MG Q12H PO Physical Exam General appearance: alert, awake, oriented Head/Eyes: atraumatic, clear cornea, EOMI, normal conjunctiva/sclera, normal eyelids/periorb., normocephalic, PERRL ENT: normal dentition, normal ear left, normal ear right, normal nose, normal pharynx, normal sinus Neck: full range of motion, non-tender, normal thyroid, supple/no meningismus, no bruit/NL carotids, no JVD, no masses or swelling Cardiovascular: normal capillary refill, regular rate rhythm Respiratory: dyspneic, hypercapnia, hypoxia, on oxygen (NRB), clear to auscultation Abdomen: non-tender, normal bowel sounds, soft, no distention, no guarding, no hernia, no mass/organomegaly, no rebound Extremities: edema, moves all, normal capillary refill, normal range of motion Musculoskeletal: normal inspection Neuro/HAND STONER: alert, oriented X 3 Skin: dry, intact Psychiatry: normal affect, normal judgment/insight, normal mood, not homicidal, not suicidal, no hallucinations Results Findings/Data: Laboratory Tests 04/25 04/25 04/25 04/25 04/25 1858 1750 1201 0724 0524 Chemistry Sodium (134 - 147 mEq/L) 137 Potassium (3.4 - 5.0 mEq/L) 3.8 Chloride (100 - 108 mEq/L) 101 Carbon Dioxide (21 - 33 mEq/l) 33 Anion Gap (0 - 20) 7 BUN (7 - 18 mg/dL) 20 H Creatinine (0.6 - 1.3 mg/dL) 1.3 Glomerular Filtr Rate (70 - 80) 59.1 L Glucose (70 - 110 mg/dL) 179 H POC Glucose (70 - 110 MG/DL) 205 H 169 H 152 H 171 H Calcium (8.0 - 10.5 mg/dL) 8.9 Diagnosis, Assessment Plan Consultants: cardiology, pulmonary, surgery-oncology Free Text DxA P Notes Free text DxA P notes: Impression: 72 yo male admitted w Acute on chronic systolic HF 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 Cardiology consult on case, echo noted with EF 35-39%. Hyperglycemic, change regular diet to ADA. Start medium dose sliding scale. He takes Novolog BID at home. Continue accuchecks. Labs AM, BMP, lipid, A1C. Cardiac monitoring. 04/19- he improve . no cp no sob -- lasix iv -- FS --under control on glyburite -- DM--poor control 04/20- sob -- on high flow O2 -- neb --lasix iv q 6 h -- FS-- fair control -- continue monitor in CV imcu 04/21- he remain sob and hypoxia -- on bipap all the times accept for meal -- continue lasix iv -- CXR -- worse edema -- neb -- bmp -- am -- monitor urine output --2500 cc 04/22- he is on high flow O2 now -- bipap at night -- ABG show worsening hypercapnia and metabolic alkalosis stop lasix as pulmon -- continue monitor respiratory status 04/23- he is on high flow O2 -- bipap at home -- metabolic alkalosis improve -- on diamox iv -- CTA chest --order 04/24- he refuse bipap and teleflex --on Nc O2 -- 6-8 L -- FS --low -- adjust glyburide -- 5 mg bid =-- BP --low -- adjust lisinopril -- monitor FS and BP -- diamox iv -- lab am 04/25- he is on high flow O2-- 12 L -- continue diamox iv --BP- stable -- FS -- well control -- continue current management at 2106 RPT #:[id number] END OF REPORT [facility] 2023-04-24 18:57:00 [facility] Pulmonology Progress Note REPORT#:[id number] REPORT STATUS: Signed DATE:04/24/23 TIME: 1856 PATIENT: WLILI MERRITT UNIT #: [id number] ROOM/BED: [place] [address] : 52 AGE: 72 SEX: M ATTEND: Marcela Samuel MD ADM AUTHOR: Poncho Noriega MD * ALL edits or amendments must be made on the electronic/computer document * Subjective Chief complaint: Patient is persistently hypoxic on heated high flow nasal cannula during my examination 90% FiO2 50 L/minute with sats 90 91 Per discussion with RN patient is apparently noncompliant with oxygen therapy. HPI: 72-year-old male with obesity, congestive heart failure, likely obstructive sleep apnea Presented with CHF exacerbation symptoms including shortness of breath, orthopnea, PND, lower extremity edema He is lethargic, confused, hypoxic, placed on Teleflex No recent change in medication or diet No fever or chills Comments: Feels much better, breathing easier, less cough, no chest pain States he is using BiPAP at night Objective General VS/I O: Laboratory Tests: 04/2414 1505 1134 0737 1903 Chemistry POC Glucose (70 - 110 MG/DL) 58 L 112 H 47 L 159 H Recent Impressions: CAT SCAN - CTA CHEST FOR PE 04/24 906 Report Impression - Status: SIGNED Entered: 04/24/2023 0940 IMPRESSION: 1. No pulmonary embolism. 2. Posterior right upper lobe airspace disease may represent atelectasis, aspiration or pneumonia. 3. Coronary artery disease. Impression By: Aram Somers M.D. Current Medications Sig/Lala Start time Last Medication Dose Route Stop Time Status Admin Iopamidol 100 ML .STK-MED ONE 04/24 09 DC 04/24 IV 04/24 909 0908 Enoxaparin Sodium 120 MG BID 04/21 1830 CKD 04/24 SUBQ 05/21 1829 1021 Acetazolamide 250 MG BID 04/21 1800 AC 04/24 IV 04/28 1759 1021 Sterile Water 5 ML ASDIR PRN 04/21 1800 AC 04/24 IV 05/21 1759 0030 Dextrose/Water 125 ML ASDIR PRN 04/19 1330 CKD 04/24 IV 05/19 1329 1534 Dextrose/Water 250 ML ASDIR PRN 04/19 1330 CKD IV 05/19 1329 Glucagon 1 MG ASDIR PRN 04/19 1330 AC IM 05/19 1329 Albuterol Sulfate 2.5 MG RTQ4H PRN PRN 04/18 2100 AC 04/18 NEB 05/18 2059 2116 Glipizide 10 MG BID 04/18 2100 AC 04/24 PO 05/18 205 0030 Insulin Human Lispro 0 AC HS 04/18 1630 AC 04/23 SUBQ 05/18 1629 0803 Aspirin 81 MG DAILY 04/18 900 AC 04/24 PO 05/18 0859 1019 Clopidogrel Bisulfate 75 MG DAILY 04/18 900 AC 04/24 PO 05/18 0859 1019 Atorvastatin Calcium 80 MG BEDTIME 04/17 2100 AC 04/24 PO 05/17 2059 0030 Lisinopril 5 MG Q12HR 04/17 2100 AC 04/24 PO 05/17 2059 1020 Metoprolol Tartrate 25 MG Q12H 04/17 1230 AC 04/24 PO 05/17 1229 0130 Last Documented: Result Date Time Pulse Ox 96 04/24 1534 O2 Delivery High flow nasal cannula 04/24 1534 O2 Flow Rate 10 04/24 1534 B/P 98/54 04/24 1509 B/P Mean 69.1 04/24 1509 Temp 98.1 04/24 1509 Pulse 60 04/24 1509 Resp 16 04/24 1509 FiO2 70 04/24 0831 24 hour I O ending at 0700: 04/24 0700 04/23 1900 Intake Total 356 600 Output Total 725 400 Balance -369 200 Intake, Oral 356 600 Number 3 Incontinent Voids Number Voids 2 Output, Urine 725 400 Patient 116.5 kg Weight Weight Bed scale Measurement Method PATIENT WEIGHT: Weight (lb): 256 Weight (oz): 13.42 Weight (kg): 116.500 Physical Exam General appearance: alert, no acute distress Free Text Obj Notes Free Text Obj Notes: General appearance: Awake Head/Eyes: atraumatic, normocephalic, PERRLA Neck: full range of motion, non-tender, normal thyroid Cardiovascular: normal heart sounds, normal S1/S2, regular rate rhythm Respiratory/chest: aerating well, clear to auscultation, symmetric expansion Abdomen: soft, non-tender, normal bowel sounds Genitourinary: no bladder distention, no flank pain Extremities: No edema, moves all, normal capillary refill, no calf tenderness Musculoskeletal: full range of motion, normal inspection, painless range of motion, straight leg raise neg Skin: dry, intact, normal color Diagnosis, Assessment Plan Free Text A P: 1. Acute hypercapnic respiratory failure Chronic respiratory failure with hypoxia Obesity ventilation syndrome/obstructive sleep apnea Acute pulmonary edema Acute exacerbation of chronic systolic heart failure All labs and imaging reviewed. ABG reviewed persistent hypercapnia despite AVAPS support. Patient remains somnolent. Tidal volumes variable from 300 400 ml Switch to BiPAP 01/06. Improved minute ventilation. Repeat ABG in 1 hour. Chest x-ray reviewed worsening pulmonary edema. Remains on IV Lasix. Repeat chemistry and magnesium. Consider adding Diamox. Check LE Doppler and D-dimer 04/22 Serial ABg with worsening hypercapnia and metabolic alkalosis- secondary to overdiuresis with lasix. Lasix stopped. He was maintained on BiPAP overnight. ABG today with improved hypercapnia and persistent hypoxia. instructed RT to keep on HFNC for short breaks for meals, o/w continua NIPPV D-dimers elevated. Place on therapeutic lovenox. Doppler checked - negative Repeat labs and consider CTA chest 04/23 Persistent hypoxia requiring high flow nasal cannula currently on 90%. Labs reviewed. We will check CTA chest. Remains on therapeutic Lovenox for now. Continue diuresis with Diamox 250 mg IV twice daily. Metabolic alkalosis is improving. Continue BiPAP at night. Patient reports productive cough we will obtain sputum cultures 7. Respiratory status currently improving, continue oxygen and BiPAP as tolerated CTA chest negative for PE, right upper lobe posterior changes noted consistent with infection, inflammation Ultrasound negative for DVT in both lower extremities Reduce Lovenox to prophylactic dose Patient states he is feels much better wants to go home not sure if he is quite ready to go home but he is improving, defer disposition to primary team. Consultants: cardiology, pulmonary, surgery-oncology at 1901 RPT #:[id number] END OF REPORT [facility] 2023-04-24 14:17:00 [facility] Cardiology Progress Note REPORT#:[id number] REPORT STATUS: Signed DATE:04/24/23 TIME: 1417 PATIENT: WILLI MERRITT UNIT #: [id number] [place]OM[place]BED: [facility] [place] : 52 AGE: 72 SEX: M ATTEND: Marcela Samuel MD ADM AUTHOR: Elizabeth David MD * ALL edits or amendments must be made on the electronic/computer document * Subjective Chief complaint: Denies chest pain. Still feels short of breath but overall feeling better now. Objective General VS/I O: 24 hour I O ending at 0700: 04/24 0700 04/23 1900 Intake Total 356 600 Output Total 725 400 Balance -369 200 Intake, Oral 356 600 Number 3 Incontinent Voids Number Voids 2 Output, Urine 725 400 Patient 116.5 kg Weight Weight Bed scale Measurement Method Vital Signs: Date Time Temp Pulse Resp B/P B/P Pulse O2 O2 Flow FiO2 Mean Ox Delivery Rate 07/15 1141 98.4 61 20 94/50 64.3 97 Nasal cannula 04/24 1118 96 High flow 12 nasal cannula 04/24 0831 60 18 90 40 70 /15 0740 98.2 60 16 125/59 0.0 96 BiPAP mask 04/24 0538 97.5 60 14 107/62 76.8 96 BiPAP mask 04/24 0324 59 18 89 40 60 /15 0000 59 22 98 40 60 04/23 2359 98.8 62 14 107/62 77.2 87 High flow nasal cannula 04/23 2215 59 18 97 40 65 /14 2000 High flow 40 55 nasal cannula 04/23 1902 97.9 59 14 107/40 62.4 90 High flow nasal cannula 04/23 1609 60 18 99 40 55 / 1602 98.1 60 16 110/66 80.7 94 High flow nasal cannula PATIENT WEIGHT: Weight (lb): 256 Weight (oz): 13.42 Weight (kg): 116.500 Medications: Active Meds + DC'd Last 24 Hrs Iopamidol (ISOVUE-300 100ML) 100 ML .STK-MED ONE IV (DC) Enoxaparin Sodium (lovENOX) 120 MG BID SUBQ (CKD) Acetazolamide (DIAMOX) 250 MG BID IV Sterile Water (WATER FOR INJECTION) 5 ML ASDIR PRN IV Dextrose/Water (DEXTROSE 10% IN WATER) 125 ML ASDIR PRN IV (CKD) Dextrose/Water (DEXTROSE 10% IN WATER) 250 ML ASDIR PRN IV (CKD) Glucagon (GLUCAGON) 1 MG ASDIR PRN IM Albuterol Sulfate (ALBUTEROL SULFATE) 2.5 MG RTQ4H PRN PRN NEB Glipizide (GLUCOTROL) 10 MG BID PO Insulin Human Lispro (HUMALOG) 0 AC HS SUBQ Aspirin (ASPIRIN) 81 MG DAILY PO Clopidogrel Bisulfate (Plavix) 75 MG DAILY PO Potassium Chloride (POTASSIUM CHLORIDE 20MEQ TAB.ER) 20 MEQ DAILY PO (DC ) Atorvastatin Calcium (LIPITOR) 80 MG BEDTIME PO Lisinopril (lisinopriL) 5 MG Q12HR PO Metoprolol Tartrate (LOPRESSOR) 25 MG Q12H PO Physical Exam General appearance: obese, alert, awake Head/Eyes: atraumatic ENT: moist mucosal membranes Neck: no JVD Cardiovascular: CV assessment: regular rate and rhythm Respiratory: crackles, decreased breath sounds Abdomen: soft, non-tender Lower extremity: LE assessment: edema Results Findings/Data: Laboratory Tests 04/24 04/24 04/23 04/23 1134 0737 1903 1600 Chemistry POC Glucose (70 - 110 MG/DL) 112 H 47 L 159 H 122 H Diagnosis, Assessment Plan Free Text DxA P Notes Free Text DxA P Notes: TTE showed: 1. Left ventricle: The cavity size is moderately dilated. Wall thickness is normal. Systolic function is moderately reduced. The estimated ejection fraction is 35-39%. Left ventricular diastolic function parameters are indeterminate. 2. Right ventricle: TAPSE is 1.6 cm. Systolic function is low normal. 3. Mitral valve: There is mild regurgitation. 4. Pericardium, extracardiac: There is no pericardial effusion. ASSESSMENT AND PLAN: 1. 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 2. Dyspnea: Last echocardiogram done in 2021 showed ejection fraction of 35-40%, so the patient has [id number] systolic heart failure. Diuresis with IV lasix Discussed the importance of compliance with medications/ follow up as well as fluid salt restriction. 3. Coronary artery disease, currently asymptomatic. MA ruled out. Plan: We will continue aspirin, Plavix and statins. 4. Hypertension. Continue metoprolol and lisinopril. 5. Dyslipidemia. Continue statins. Will continue to diurese the patient. at 1419 RPT #:[id number] END OF REPORT [facility] 2023-04-24 13:44:00 [facility] ([facility]) Hospitalist Progress Note REPORT#:[id number] REPORT STATUS: Signed DATE:04/24/23 TIME: 1344 PATIENT: WILLI MERRITT UNIT #: [id number] ROOM/BED: [place] [address] : 52 AGE: 72 SEX: M ATTEND: Marcela Samuel MD ADM AUTHOR: Tamara Esposito MD * ALL edits or amendments must be made on the electronic/computer document * Subjective Chief complaint: he is on high flow O2 . he refuse bipap and telflex HPI: 72-year-old male with a history of diabetes, hypertension, CAD status post stents presents to the emergency department as a transfer for CHF/heart failure. Patient states he began having shortness of breath and bilateral lower extremity swelling 2 days ago and his symptoms progressed. At the outside facility he was started on BiPAP and given 40 mg of IV Lasix. Patient also endorsed some chest pain which has now resolved. Denies fever, chills, abdominal pain, nausea, vomiting, diarrhea, constipation, melena, hematochezia. Review of Systems Respiratory: Reports: UGALDE (dyspnea on exertion), SOB. All systems rev neg: except as noted Objective General VS/I O: Vital Signs: Date Time Temp Pulse Resp B/P B/P Pulse O2 O2 Flow FiO2 Mean Ox Delivery Rate 04/24 1141 36.9 61 20 94/50 64.3 97 Nasal cannula 04/24 1118 96 High flow 12 nasal cannula 04/24 0831 60 18 90 40 70 04/24 0740 36.8 60 16 125/59 0.0 96 BiPAP mask 04/24 0538 36.4 60 14 107/62 76.8 96 BiPAP mask 04/24 0324 59 18 89 40 60 15 0000 59 22 98 40 60 /14 2359 37.1 62 14 107/62 77.2 87 High flow nasal cannula 04/23 2215 59 18 97 40 65 04/23 2000 High flow 40 55 nasal cannula 04/23 1902 36.6 59 14 107/40 62.4 90 High flow nasal cannula 04/23 1609 60 18 99 40 55 04/23 1602 36.7 60 16 110/66 80.7 94 High flow nasal cannula 24 hour I O ending at 0700: 04/24 0700 04/23 1900 Intake Total 356 600 Output Total 725 400 Balance -369 200 Intake, Oral 356 600 Number 3 Incontinent Voids Number Voids 2 Output, Urine 725 400 Patient 116.5 kg Weight Weight Bed scale Measurement Method PATIENT WEIGHT: Weight (lb): 256 Weight (oz): 13.42 Weight (kg): 116.500 Medications: Active Meds + DC'd Last 24 Hrs Iopamidol (ISOVUE-300 100ML) 100 ML .STK-MED ONE IV (DC) Enoxaparin Sodium (lovENOX) 120 MG BID SUBQ (CKD) Acetazolamide (DIAMOX) 250 MG BID IV Sterile Water (WATER FOR INJECTION) 5 ML ASDIR PRN IV Dextrose/Water (DEXTROSE 10% IN WATER) 125 ML ASDIR PRN IV (CKD) Dextrose/Water (DEXTROSE 10% IN WATER) 250 ML ASDIR PRN IV (CKD) Glucagon (GLUCAGON) 1 MG ASDIR PRN IM Albuterol Sulfate (ALBUTEROL SULFATE) 2.5 MG RTQ4H PRN PRN NEB Glipizide (GLUCOTROL) 10 MG BID PO Insulin Human Lispro (HUMALOG) 0 AC HS SUBQ Aspirin (ASPIRIN) 81 MG DAILY PO Clopidogrel Bisulfate (Plavix) 75 MG DAILY PO Potassium Chloride (POTASSIUM CHLORIDE 20MEQ TAB.ER) 20 MEQ DAILY PO (DC ) Atorvastatin Calcium (LIPITOR) 80 MG BEDTIME PO Lisinopril (lisinopriL) 5 MG Q12HR PO Metoprolol Tartrate (LOPRESSOR) 25 MG Q12H PO Physical Exam General appearance: alert, awake, oriented Head/Eyes: atraumatic, clear cornea, EOMI, normal conjunctiva/sclera, normal eyelids/periorb., normocephalic, PERRL ENT: normal dentition, normal ear left, normal ear right, normal nose, normal pharynx, normal sinus Neck: full range of motion, non-tender, normal thyroid, supple/no meningismus, no bruit/NL carotids, no JVD, no masses or swelling Cardiovascular: normal capillary refill, regular rate rhythm Respiratory: dyspneic, hypercapnia, hypoxia, on oxygen (NRB), clear to auscultation Abdomen: non-tender, normal bowel sounds, soft, no distention, no guarding, no hernia, no mass/organomegaly, no rebound Extremities: edema, moves all, normal capillary refill, normal range of motion Musculoskeletal: normal inspection Neuro/HAND STONER: alert, oriented X 3 Skin: dry, intact Psychiatry: normal affect, normal judgment/insight, normal mood, not homicidal, not suicidal, no hallucinations Results Findings/Data: Laboratory Tests 04/24 04/24 04/24 04/24 1944 1505 1134 0737 Chemistry POC Glucose (70 - 110 MG/DL) 128 H 58 L 112 H 47 L Diagnosis, Assessment Plan Consultants: cardiology, pulmonary, surgery-oncology Free Text DxA P Notes Free text DxA P notes: Impression: 72 yo male admitted w Acute on chronic systolic HF 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 Cardiology consult on case, echo noted with EF 35-39%. Hyperglycemic, change regular diet to ADA. Start medium dose sliding scale. He takes Novolog BID at home. Continue accuchecks. Labs AM, BMP, lipid, A1C. Cardiac monitoring. 04/19- he improve . no cp no sob -- lasix iv -- FS --under control on glyburite -- DM--poor control 04/20- sob -- on high flow O2 -- neb --lasix iv q 6 h -- FS-- fair control -- continue monitor in CV imcu 04/21- he remain sob and hypoxia -- on bipap all the times accept for meal -- continue lasix iv -- CXR -- worse edema -- neb -- bmp -- am -- monitor urine output --2500 cc 04/22- he is on high flow O2 now -- bipap at night -- ABG show worsening hypercapnia and metabolic alkalosis stop lasix as pulmon -- continue monitor respiratory status 04/23- he is on high flow O2 -- bipap at home -- metabolic alkalosis improve -- on diamox iv -- CTA chest --order 04/24- he refuse bipap and teleflex --on Nc O2 -- 6-8 L -- FS --low -- adjust glyburide -- 5 mg bid =-- BP --low -- adjust lisinopril -- monitor FS and BP -- diamox iv -- lab am at 2028 [facility] #:[id number] END OF REPORT [facility] 2023-04-23 17:21:00 [facility] ([facility]) Cardiology Progress Note REPORT#:[id number] REPORT STATUS: Signed DATE:04/23/23 TIME: 1721 PATIENT: WILLI MRERITT UNIT #: [id number] ROOM/BED: [place] [address] : 52 AGE: 72 SEX: M ATTEND: Marcela Samuel MD ADM AUTHOR: Elizabeth David MD * ALL edits or amendments must be made on the electronic/computer document * Subjective Chief complaint: Denies chest pain. Still feels short of breath but overall feeling better now. Objective General VS/I O: 24 hour I O ending at 0700: 04/23 0700 04/22 1900 Intake Total 500 720.00 Output Total 650 1000 Balance -150 -280.00 Intake, IV 20.00 Intake, Oral 500 700 Number 0 Bowel Movements Output, Urine 650 1000 Vital Signs: Date Time Temp Pulse Resp B/P B/P Pulse O2 O2 Flow FiO2 Mean Ox Delivery Rate 04/23 1609 60 18 99 40 55 04/23 1602 98.1 60 16 110/66 80.7 94 High flow nasal cannula 04/23 1125 60 18 95 50 95 04/23 1118 98.1 60 16 133/70 91.1 96 High flow nasal cannula 04/23 0840 60 18 97 50 96 04/23 0815 55 95 04/23 0726 98.2 60 16 112/64 80.3 92 High flow nasal cannula 04/23 0421 97.9 60 14 131/57 81.6 94 High flow nasal cannula 04/23 0258 64 16 92 50 100 04/23 0001 96.1 58 14 123/56 78.6 98 High flow nasal cannula 04/22 2338 60 97 60 04/22 2048 60 24 94 50 100 04/22 2048 94 High flow 50 100 nasal cannula 04/22 2000 High flow 50 100 nasal cannula 04/22 1918 98.1 60 14 120/65 83.2 98 High flow nasal cannula 04/22 1830 High flow 100 nasal cannula PATIENT WEIGHT: Weight (lb): 248 Weight (oz): 14.43 Weight (kg): 112.900 Medications: Active Meds + DC'd Last 24 Hrs Enoxaparin Sodium (lovENOX) 120 MG BID SUBQ (CKD) Acetazolamide (DIAMOX) 250 MG BID IV Sterile Water (WATER FOR INJECTION) 5 ML ASDIR PRN IV Dextrose/Water (DEXTROSE 10% IN WATER) 125 ML ASDIR PRN IV (CKD) Dextrose/Water (DEXTROSE 10% IN WATER) 250 ML ASDIR PRN IV (CKD) Glucagon (GLUCAGON) 1 MG ASDIR PRN IM Albuterol Sulfate (ALBUTEROL SULFATE) 2.5 MG RTQ4H PRN PRN NEB Glipizide (GLUCOTROL) 10 MG BID PO Insulin Human Lispro (HUMALOG) 0 AC HS SUBQ Aspirin (ASPIRIN) 81 MG DAILY PO Clopidogrel Bisulfate (Plavix) 75 MG DAILY PO Potassium Chloride (POTASSIUM CHLORIDE 20MEQ TAB.ER) 20 MEQ DAILY PO (DC ) Atorvastatin Calcium (LIPITOR) 80 MG BEDTIME PO Lisinopril (lisinopriL) 5 MG Q12HR PO Metoprolol Tartrate (LOPRESSOR) 25 MG Q12H PO Physical Exam General appearance: alert, awake Head/Eyes: atraumatic ENT: moist mucosal membranes Neck: no JVD Cardiovascular: CV assessment: regular rate and rhythm Respiratory: crackles, decreased breath sounds Abdomen: soft, non-tender Lower extremity: LE assessment: edema Results Findings/Data: Laboratory Tests 04/23 04/23 04/23 04/23 04/22 1600 1129 1119 0724 1920 Chemistry Sodium (134 - 147 mEq/L) 139 Potassium (3.4 - 5.0 mEq/L) 3.5 Chloride (100 - 108 mEq/L) 100 Carbon Dioxide (21 - 33 mEq/l) 34 H Anion Gap (0 - 20) 9 BUN (7 - 18 mg/dL) 20 H Creatinine (0.6 - 1.3 mg/dL) 1.3 Glomerular Filtr Rate (70 - 80) 59.1 L Glucose (70 - 110 mg/dL) 81 POC Glucose (70 - 110 MG/DL) 122 H 82 202 H 179 H Calcium (8.0 - 10.5 mg/dL) 9.0 Laboratory Tests 04/23 1129 Hematology WBC (4.5 - 11.0 x10 3/uL) 7.2 RBC (4.00 - 5.60 x10 6/uL) 4.05 Hgb (12.5 - 16.9 g/dL) 12.2 L Hct (37.5 - 50.7 %) 40.7 MCV (81.0 - 99.0 fL) 100.5 H MCH (27.0 - 33.0 pg) 30.1 MCHC (33.0 - 37.0 g/dL) 30.0 L RDW (11.5 - 14.5 %) 15.3 H Plt Count (150 - 400 x10 3/uL) 233 MPV (7.0 - 9.0 fL) 11.5 H Neut % (Auto) (56.0 - 77.0 %) 65.5 Lymph % (Auto) (14.0 - 32.0 %) 19.3 [place] % (Auto) (4.8 - 9.0 %) 11.6 H Eos % (Auto) (0.3 - 3.7 %) 2.8 Baso % (Auto) (0.0 - 2.0 %) 0.4 Neut # (Auto) (2.0 - 7.6 x10 3/uL) 4.74 Lymph # (Auto) (1.0 - 3.8 x10 3/uL) 1.40 [place] # (Auto) (0.1 - 0.8 x10 3/uL) 0.84 H Eos # (Auto) (0.0 - 0.2 x10 3/uL) 0.20 Baso # (Auto) (0.0 - 0.2 x10 3/uL) 0.03 Abs Immat Gran (auto) (0.00 - 0.03 x10 3/uL) 0.03 Add Manual Diff NO Immature Gran % (0.0 - 2.0 %) 0.4 Nucleated RBC % (0 - 0 %) 0.0 Nucleated RBCs # (Man) (0.0 - 0.1 x10 3/uL) 0.00 Diagnosis, Assessment Plan Free Text DxA P Notes Free Text DxA P Notes: TTE showed: 1. Left ventricle: The cavity size is moderately dilated. Wall thickness is normal. Systolic function is moderately reduced. The estimated ejection fraction is 35-39%. Left ventricular diastolic function parameters are indeterminate. 2. Right ventricle: TAPSE is 1.6 cm. Systolic function is low normal. 3. Mitral valve: There is mild regurgitation. 4. Pericardium, extracardiac: There is no pericardial effusion. ASSESSMENT AND PLAN: 1. 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 2. Dyspnea: Last echocardiogram done in 2021 showed ejection fraction of 35-40%, so the patient has [id number] systolic heart failure. Diuresis with IV lasix Discussed the importance of compliance with medications/ follow up as well as fluid salt restriction. 3. Coronary artery disease, currently asymptomatic. MA ruled out. Plan: We will continue aspirin, Plavix and statins. 4. Hypertension. Continue metoprolol and lisinopril. 5. Dyslipidemia. Continue statins. Will continue to diurese the patient. at 1722 RPT #:[id number] END OF REPORT [facility] 2023-04-23 16:31:00 [facility] Pulmonology Progress Note REPORT#:[id number] REPORT STATUS: Signed DATE:04/23/23 TIME: 1631 PATIENT: WILLI MERRITT UNIT #: [id number] ROOM/BED: [place] [id number] : 52 AGE: 72 SEX: M ATTEND: Marcela Samuel MD ADM AUTHOR: Yaquelin Francis MD * ALL edits or amendments must be made on the electronic/computer document * Subjective Chief complaint: Patient is persistently hypoxic on heated high flow nasal cannula during my examination 90% FiO2 50 L/minute with sats 90 91 Per discussion with RN patient is apparently noncompliant with oxygen therapy. HPI: 72-year-old male with obesity, congestive heart failure, likely obstructive sleep apnea Presented with CHF exacerbation symptoms including shortness of breath, orthopnea, PND, lower extremity edema He is lethargic, confused, hypoxic, placed on Teleflex No recent change in medication or diet No fever or chills Objective General VS/I O: Last Documented: Result Date Time Pulse Ox 99 04/23 1609 FiO2 55 04/23 1609 O2 Flow Rate 40 04/23 1609 Pulse 60 04/23 1609 Resp 18 04/23 1609 B/P 110/66 04/23 1602 B/P Mean 80.7 04/23 1602 O2 Delivery High flow nasal cannula 04/23 1602 Temp 36.7 04/23 1602 24 hour I O ending at 0700: 04/23 0700 04/22 1900 Intake Total 500 720.00 Output Total 650 1000 Balance -150 -280.00 Intake, IV 20.00 Intake, Oral 500 700 Number 0 Bowel Movements Output, Urine 650 1000 PATIENT WEIGHT: Weight (lb): 248 Weight (oz): 14.43 Weight (kg): 112.900 Free Text Obj Notes Free Text Obj Notes: General appearance: Awake Head/Eyes: atraumatic, normocephalic, PERRLA Neck: full range of motion, non-tender, normal thyroid Cardiovascular: normal heart sounds, normal S1/S2, regular rate rhythm Respiratory/chest: aerating well, clear to auscultation, symmetric expansion Abdomen: soft, non-tender, normal bowel sounds Genitourinary: no bladder distention, no flank pain Extremities: No edema, moves all, normal capillary refill, no calf tenderness Musculoskeletal: full range of motion, normal inspection, painless range of motion, straight leg raise neg Skin: dry, intact, normal color Diagnosis, Assessment Plan Free Text A P: 1. Acute hypercapnic respiratory failure Chronic respiratory failure with hypoxia Obesity ventilation syndrome/obstructive sleep apnea Acute pulmonary edema Acute exacerbation of chronic systolic heart failure All labs and imaging reviewed. ABG reviewed persistent hypercapnia despite AVAPS support. Patient remains somnolent. Tidal volumes variable from 300 400 ml Switch to BiPAP 01/06. Improved minute ventilation. Repeat ABG in 1 hour. Chest x-ray reviewed worsening pulmonary edema. Remains on IV Lasix. Repeat chemistry and magnesium. Consider adding Diamox. Check LE Doppler and D-dimer 04/22 Serial ABg with worsening hypercapnia and metabolic alkalosis- secondary to overdiuresis with lasix. Lasix stopped. He was maintained on BiPAP overnight. ABG today with improved hypercapnia and persistent hypoxia. instructed RT to keep on HFNC for short breaks for meals, o/w continua NIPPV D-dimers elevated. Place on therapeutic lovenox. Doppler checked - negative Repeat labs and consider CTA chest 04/23 Persistent hypoxia requiring high flow nasal cannula currently on 90%. Labs reviewed. We will check CTA chest. Remains on therapeutic Lovenox for now. Continue diuresis with Diamox 250 mg IV twice daily. Metabolic alkalosis is improving. Continue BiPAP at night. Patient reports productive cough we will obtain sputum cultures Consultants: cardiology, pulmonary, surgery-oncology at 1632 RPT #:[id number] END OF REPORT [facility] 2023-04-23 13:12:00 [facility] ([facility]) Hospitalist Progress Note REPORT#:[id number] REPORT STATUS: Signed DATE:04/23/23 TIME: 1312 PATIENT: WILLI MERRITT UNIT #: [id number] ROOM/BED: [place] [phone] : 52 AGE: 72 SEX: M ATTEND: Marcela Samuel MD ADM AUTHOR: Tamara Esposito MD * ALL edits or amendments must be made on the electronic/computer document * Subjective Chief complaint: he is on high flow O2 . he remain sob HPI: 72-year-old male with a history of diabetes, hypertension, CAD status post stents presents to the emergency department as a transfer for CHF/heart failure. Patient states he began having shortness of breath and bilateral lower extremity swelling 2 days ago and his symptoms progressed. At the outside facility he was started on BiPAP and given 40 mg of IV Lasix. Patient also endorsed some chest pain which has now resolved. Denies fever, chills, abdominal pain, nausea, vomiting, diarrhea, constipation, melena, hematochezia. Review of Systems Constitutional: Denies: fatigue, fever, lethargy. Respiratory: Reports: SOB. Denies: wheezing. Cardiovascular: Reports: UGALDE (dyspnea on exertion), edema. Denies: chest pain, orthopnea, palpitations. GI: Denies: abdominal pain, diarrhea, nausea, vomiting. : Denies: flank pain. Neuro: Denies: dizziness. Objective General VS/I O: Vital Signs: Date Time Temp Pulse Resp B/P B/P Pulse O2 O2 Flow FiO2 Mean Ox Delivery Rate 04/23 1125 60 18 95 50 95 04/23 1118 36.7 60 16 133/70 91.1 96 High flow nasal cannula 04/23 0840 60 18 97 50 96 04/23 0726 36.8 60 16 112/64 80.3 92 High flow nasal cannula 04/23 0421 36.6 60 14 131/57 81.6 94 High flow nasal cannula 04/23 0258 64 16 92 50 100 04/23 0001 35.6 58 14 123/56 78.6 98 High flow nasal cannula 04/22 2338 60 97 60 04/22 2048 60 24 94 50 100 04/22 2048 94 High flow 50 100 nasal cannula 04/22 2000 High flow 50 100 nasal cannula 04/22 1918 36.7 60 14 120/65 83.2 98 High flow nasal cannula 04/22 1830 High flow 100 nasal cannula 04/22 1652 36.7 60 17 127/73 90.7 91 High flow nasal cannula 24 hour I O ending at 0700: 04/23 0700 04/22 1900 Intake Total 500 720.00 Output Total 650 1000 Balance -150 -280.00 Intake, IV 20.00 Intake, Oral 500 700 Number 0 Bowel Movements Output, Urine 650 1000 PATIENT WEIGHT: Weight (lb): 248 Weight (oz): 14.43 Weight (kg): 112.900 Medications: Active Meds + DC'd Last 24 Hrs Sodium Polystyrene Sulfonate (KAYEXELATE) 30 GM ONCE ONE PO (DC) Enoxaparin Sodium (lovENOX) 120 MG BID SUBQ (CKD) Acetazolamide (DIAMOX) 250 MG BID IV Sterile Water (WATER FOR INJECTION) 5 ML ASDIR PRN IV Dextrose/Water (DEXTROSE 10% IN WATER) 125 ML ASDIR PRN IV (CKD) Dextrose/Water (DEXTROSE 10% IN WATER) 250 ML ASDIR PRN IV (CKD) Glucagon (GLUCAGON) 1 MG ASDIR PRN IM Albuterol Sulfate (ALBUTEROL SULFATE) 2.5 MG RTQ4H PRN PRN NEB Glipizide (GLUCOTROL) 10 MG BID PO Insulin Human Lispro (HUMALOG) 0 AC HS SUBQ Aspirin (ASPIRIN) 81 MG DAILY PO Clopidogrel Bisulfate (Plavix) 75 MG DAILY PO Potassium Chloride (POTASSIUM CHLORIDE 20MEQ TAB.ER) 20 MEQ DAILY PO Atorvastatin Calcium (LIPITOR) 80 MG BEDTIME PO Lisinopril (lisinopriL) 5 MG Q12HR PO Metoprolol Tartrate (LOPRESSOR) 25 MG Q12H PO Physical Exam General appearance: alert, awake, oriented Head/Eyes: atraumatic, clear cornea, EOMI, normal conjunctiva/sclera, normal eyelids/periorb., normocephalic, PERRL ENT: normal dentition, normal ear left, normal ear right, normal nose, normal pharynx, normal sinus Neck: full range of motion, non-tender, normal thyroid, supple/no meningismus, no bruit/NL carotids, no JVD, no masses or swelling Cardiovascular: normal capillary refill, regular rate rhythm Respiratory: dyspneic, hypercapnia, hypoxia, on oxygen (NRB), clear to auscultation Abdomen: non-tender, normal bowel sounds, soft, no distention, no guarding, no hernia, no mass/organomegaly, no rebound Extremities: edema, moves all, normal capillary refill, normal range of motion Musculoskeletal: normal inspection Neuro/HAND STONER: alert, oriented X 3 Skin: dry, intact Psychiatry: normal affect, normal judgment/insight, normal mood, not homicidal, not suicidal, no hallucinations Results Findings/Data: Laboratory Tests 04/23 04/23 04/23 04/22 04/22 1129 1119 0724 1920 1648 Chemistry Sodium (134 - 147 mEq/L) 139 Potassium (3.4 - 5.0 mEq/L) 3.5 Chloride (100 - 108 mEq/L) 100 Carbon Dioxide (21 - 33 mEq/l) 34 H Anion Gap (0 - 20) 9 BUN (7 - 18 mg/dL) 20 H Creatinine (0.6 - 1.3 mg/dL) 1.3 Glomerular Filtr Rate (70 - 80) 59.1 L Glucose (70 - 110 mg/dL) 81 POC Glucose (70 - 110 MG/DL) 82 202 H 179 H 140 H Calcium (8.0 - 10.5 mg/dL) 9.0 04/22 1559 Chemistry Sodium (134 - 147 mEq/L) 136 Potassium (3.4 - 5.0 mEq/L) 5.1 H Chloride (100 - 108 mEq/L) 100 Carbon Dioxide (21 - 33 mEq/l) 32 Anion Gap (0 - 20) 9 BUN (7 - 18 mg/dL) 15 Creatinine (0.6 - 1.3 mg/dL) 1.3 Glomerular Filtr Rate (70 - 80) 59.1 L Glucose (70 - 110 mg/dL) 116 H Calcium (8.0 - 10.5 mg/dL) 9.3 Laboratory Tests 04/23 1129 Hematology WBC (4.5 - 11.0 x10 3/uL) 7.2 RBC (4.00 - 5.60 x10 6/uL) 4.05 Hgb (12.5 - 16.9 g/dL) 12.2 L Hct (37.5 - 50.7 %) 40.7 MCV (81.0 - 99.0 fL) 100.5 H MCH (27.0 - 33.0 pg) 30.1 MCHC (33.0 - 37.0 g/dL) 30.0 L RDW (11.5 - 14.5 %) 15.3 H Plt Count (150 - 400 x10 3/uL) 233 MPV (7.0 - 9.0 fL) 11.5 H Neut % (Auto) (56.0 - 77.0 %) 65.5 Lymph % (Auto) (14.0 - 32.0 %) 19.3 [place] % (Auto) (4.8 - 9.0 %) 11.6 H Eos % (Auto) (0.3 - 3.7 %) 2.8 Baso % (Auto) (0.0 - 2.0 %) 0.4 Neut # (Auto) (2.0 - 7.6 x10 3/uL) 4.74 Lymph # (Auto) (1.0 - 3.8 x10 3/uL) 1.40 [place] # (Auto) (0.1 - 0.8 x10 3/uL) 0.84 H Eos # (Auto) (0.0 - 0.2 x10 3/uL) 0.20 Baso # (Auto) (0.0 - 0.2 x10 3/uL) 0.03 Abs Immat Gran (auto) (0.00 - 0.03 x10 3/uL) 0.03 Add Manual Diff NO Immature Gran % (0.0 - 2.0 %) 0.4 Nucleated RBC % (0 - 0 %) 0.0 Nucleated RBCs # (Man) (0.0 - 0.1 x10 3/uL) 0.00 Diagnosis, Assessment Plan Consultants: cardiology, pulmonary, surgery-oncology Free Text DxA P Notes Free text DxA P notes: Impression: 72 yo male admitted w Acute on chronic systolic HF 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 Cardiology consult on case, echo noted with EF 35-39%. Hyperglycemic, change regular diet to ADA. Start medium dose sliding scale. He takes Novolog BID at home. Continue accuchecks. Labs AM, BMP, lipid, A1C. Cardiac monitoring. 04/19- he improve . no cp no sob -- lasix iv -- FS --under control on glyburite -- DM--poor control 04/20- sob -- on high flow O2 -- neb --lasix iv q 6 h -- FS-- fair control -- continue monitor in CV imcu 04/21- he remain sob and hypoxia -- on bipap all the times accept for meal -- continue lasix iv -- CXR -- worse edema -- neb -- bmp -- am -- monitor urine output --2500 cc 04/22- he is on high flow O2 now -- bipap at night -- ABG show worsening hypercapnia and metabolic alkalosis stop lasix as pulmon -- continue monitor respiratory status 04/23- he is on high flow O2 -- bipap at home -- metabolic alkalosis improve -- on diamox iv -- CTA chest --order at 2053 RPT #:[id number] END OF REPORT [facility] 2023-04-22 14:21:00 [facility] ([facility]) Pulmonology Progress Note REPORT#:[id number] REPORT STATUS: Signed DATE:04/22/23 TIME: 1420 PATIENT: WILLI MERRITT UNIT #: [id number] ROOM/BED: [place] [address] : 52 AGE: 72 SEX: M ATTEND: Marcela Samuel MD ADM AUTHOR: Yaquelin Francis MD * ALL edits or amendments must be made on the electronic/computer document * Subjective Chief complaint: more awake on non heated HFNC at 15 L/min - remains hypoxic Used BiPAP overnight HPI: 72-year-old male with obesity, congestive heart failure, likely obstructive sleep apnea Presented with CHF exacerbation symptoms including shortness of breath, orthopnea, PND, lower extremity edema He is lethargic, confused, hypoxic, placed on Teleflex No recent change in medication or diet No fever or chills Objective General VS/I O: Last Documented: Result Date Time Pulse Ox 92 04/22 1223 B/P 129/60 04/22 1223 B/P Mean 0.0 04/22 1223 O2 Delivery Nasal cannula 04/22 1223 Temp 36.7 04/22 1223 Pulse 61 04/22 1223 Resp 14 04/22 1223 O2 Flow Rate 15 04/22 1204 FiO2 60 04/22 0412 24 hour I O ending at 0700: 04/22 0700 04/21 1900 Intake Total 814 400 Output Total 1999 1999 Balance -1186 -1600 Intake, Oral 814 400 Output, Urine 1999 1999 Patient 112.9 kg Weight PATIENT WEIGHT: Weight (lb): 248 Weight (oz): 14.43 Weight (kg): 112.900 Free Text Obj Notes Free Text Obj Notes: General appearance: Awake Head/Eyes: atraumatic, normocephalic, PERRLA Neck: full range of motion, non-tender, normal thyroid Cardiovascular: normal heart sounds, normal S1/S2, regular rate rhythm Respiratory/chest: aerating well, clear to auscultation, symmetric expansion Abdomen: soft, non-tender, normal bowel sounds Genitourinary: no bladder distention, no flank pain Extremities: No edema, moves all, normal capillary refill, no calf tenderness Musculoskeletal: full range of motion, normal inspection, painless range of motion, straight leg raise neg Skin: dry, intact, normal color Diagnosis, Assessment Plan Free Text A P: 1. Acute hypercapnic respiratory failure Chronic respiratory failure with hypoxia Obesity ventilation syndrome/obstructive sleep apnea Acute pulmonary edema Acute exacerbation of chronic systolic heart failure All labs and imaging reviewed. ABG reviewed persistent hypercapnia despite AVAPS support. Patient remains somnolent. Tidal volumes variable from 300 400 ml Switch to BiPAP 01/06. Improved minute ventilation. Repeat ABG in 1 hour. Chest x-ray reviewed worsening pulmonary edema. Remains on IV Lasix. Repeat chemistry and magnesium. Consider adding Diamox. Check LE Doppler and D-dimer 04/22 Serial ABg with worsening hypercapnia and metabolic alkalosis- secondary to overdiuresis with lasix. Lasix stopped. He was maintained on BiPAP overnight. ABG today with improved hypercapnia and persistent hypoxia. instructed RT to keep on HFNC for short breaks for meals, o/w continua NIPPV D-dimers elevated. Place on therapeutic lovenox. Doppler checked - negative Repeat labs and consider CTA chest Consultants: cardiology, pulmonary, surgery-oncology at 1425 RPT #:[id number] END OF REPORT [facility] 2023-04-22 12:30:00 [facility] ([facility]) Hospitalist Progress Note REPORT#:[id number] REPORT STATUS: Signed DATE:04/22/23 TIME: 1230 PATIENT: WILLI MERRITT UNIT #: [id number] ROOM/BED: [place] [address] : [birth year] AGE: 72 SEX: M ATTEND: Marcela Samuel MD ADM AUTHOR: Tamara Esposito MD * ALL edits or amendments must be made on the electronic/computer document * Subjective Chief complaint: he is on high flow O2 . he remain sob HPI: 72-year-old male with a history of diabetes, hypertension, CAD status post stents presents to the emergency department as a transfer for CHF/heart failure. Patient states he began having shortness of breath and bilateral lower extremity swelling 2 days ago and his symptoms progressed. At the outside facility he was started on BiPAP and given 40 mg of IV Lasix. Patient also endorsed some chest pain which has now resolved. Denies fever, chills, abdominal pain, nausea, vomiting, diarrhea, constipation, melena, hematochezia. Review of Systems Constitutional: Reports: generalized weakness. Respiratory: Reports: SOB. All systems rev neg: except as noted Objective General VS/I O: Vital Signs: Date Time Temp Pulse Resp B/P B/P Pulse O2 O2 Flow FiO2 Mean Ox Delivery Rate 04/22 1223 36.7 61 14 129/60 0.0 92 Nasal cannula 04/22 0909 36.9 60 14 100/50 66.9 95 Room air 04/22 0800 92 High flow 15 nasal cannula 04/22 0424 36.7 61 14 121/84 96.2 99 BiPAP mask 04/22 0412 60 99 60 04/22 0040 60 98 60 04/21 2330 36.5 60 14 119/66 83.7 99 BiPAP mask 04/21 2201 60 100 60 04/21 2201 100 High flow 15 nasal cannula 04/21 2100 BiPAP 04/21 1936 36.7 60 14 93/49 0.0 100 BiPAP mask 04/21 1638 36.7 60 14 127/62 83 97 04/21 1605 60 97 60 04/21 1605 97 BiPAP 60 24 hour I O ending at 0700: 04/22 0700 04/21 1900 Intake Total 814 400 Output Total 1999 1999 Balance -1186 -1600 Intake, Oral 814 400 Output, Urine 1999 1999 Patient 112.9 kg Weight PATIENT WEIGHT: Weight (lb): 248 Weight (oz): 14.43 Weight (kg): 112.900 Medications: Active Meds + DC'd Last 24 Hrs Enoxaparin Sodium (lovENOX) 120 MG BID SUBQ (CKD) Acetazolamide (DIAMOX) 250 MG BID IV Sterile Water (WATER FOR INJECTION) 5 ML ASDIR PRN IV Furosemide (LASIX 40 mg/4 mL INJECTION) 40 MG Q6H IV (DC) Dextrose/Water (DEXTROSE 10% IN WATER) 125 ML ASDIR PRN IV (CKD) Dextrose/Water (DEXTROSE 10% IN WATER) 250 ML ASDIR PRN IV (CKD) Glucagon (GLUCAGON) 1 MG ASDIR PRN IM Albuterol Sulfate (ALBUTEROL SULFATE) 2.5 MG RTQ4H PRN PRN NEB Glipizide (GLUCOTROL) 10 MG BID PO Insulin Human Lispro (HUMALOG) 0 AC HS SUBQ Aspirin (ASPIRIN) 81 MG DAILY PO Clopidogrel Bisulfate (Plavix) 75 MG DAILY PO Potassium Chloride (POTASSIUM CHLORIDE 20MEQ TAB.ER) 20 MEQ DAILY PO Atorvastatin Calcium (LIPITOR) 80 MG BEDTIME PO Lisinopril (lisinopriL) 5 MG Q12HR PO Metoprolol Tartrate (LOPRESSOR) 25 MG Q12H PO Physical Exam General appearance: alert, awake, oriented Head/Eyes: atraumatic, clear cornea, EOMI, normal conjunctiva/sclera, normal eyelids/periorb., normocephalic, PERRL ENT: normal dentition, normal ear left, normal ear right, normal nose, normal pharynx, normal sinus Neck: full range of motion, non-tender, normal thyroid, supple/no meningismus, no bruit/NL carotids, no JVD, no masses or swelling Cardiovascular: normal capillary refill, regular rate rhythm Respiratory: dyspneic, hypercapnia, hypoxia, on oxygen (NRB), clear to auscultation Abdomen: non-tender, normal bowel sounds, soft, no distention, no guarding, no hernia, no mass/organomegaly, no rebound Extremities: edema, moves all, normal capillary refill, normal range of motion Musculoskeletal: normal inspection Neuro/HAND STONER: alert, oriented X 3 Skin: dry, intact Psychiatry: normal affect, normal judgment/insight, normal mood, not homicidal, not suicidal, no hallucinations Results Findings/Data: Laboratory Tests 04/22 04/21 1259 1805 Blood Gas Puncture Site R Radial R Radial O2 Saturation (90 - 100 %) 84.7 L 96.2 ABG pH (7.35 - 7.45) 7.350 7.358 ABG pCO2 (35.0 - 45 mmHg) 64.3 *H 88.4 *H ABG pO2 (80 - 100.0 mmHg) 54.1 L 93.8 ABG PO2/FiO2 Ratio (mm/Hg) 156.33 ABG HCO3 (22.0 - 26.0 MMOL/L) 35.5 *H 49.8 *H ABG Total CO2 37.5 > 50.0 ABG Base Excess (-4.0 - 4.0 MMOL/L) 9.9 H 24.3 H Kathe Test Positive Positive O2 Delivery Device HFNC BiPAP Vent Mode BiLevel Vent Rate (/MIN) 22 FiO2 (%) 60 PEEP (cmH2O) 8 Pressure Support (cmH2O) 22 Laboratory Tests 04/22 04/22 04/22 04/21 04/21 1559 1222 0712 5 2027 Chemistry Sodium (134 - 147 mEq/L) 136 Potassium (3.4 - 5.0 mEq/L) 5.1 H Chloride (100 - 108 mEq/L) 100 Carbon Dioxide (21 - 33 mEq/l) 32 Anion Gap (0 - 20) 9 BUN (7 - 18 mg/dL) 15 Creatinine (0.6 - 1.3 mg/dL) 1.3 Glomerular Filtr Rate (70 - 80) 59.1 L Glucose (70 - 110 mg/dL) 116 H POC Glucose (70 - 110 MG/DL) 166 H 152 H 146 H 93 Calcium (8.0 - 10.5 mg/dL) 9.3 04/21 Chemistry POC Glucose (70 - 110 MG/DL) 94 77 47 L Diagnosis, Assessment Plan Consultants: cardiology, pulmonary, surgery-oncology Free Text DxA P Notes Free text DxA P notes: Impression: 72 yo male admitted w Acute on chronic systolic HF 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 Cardiology consult on case, echo noted with EF 35-39%. Hyperglycemic, change regular diet to ADA. Start medium dose sliding scale. He takes Novolog BID at home. Continue accuchecks. Labs AM, BMP, lipid, A1C. Cardiac monitoring. 04/19- he improve . no cp no sob -- lasix iv -- FS --under control on glyburite -- DM--poor control 04/20- sob -- on high flow O2 -- neb --lasix iv q 6 h -- FS-- fair control -- continue monitor in CV imcu 04/21- he remain sob and hypoxia -- on bipap all the times accept for meal -- continue lasix iv -- CXR -- worse edema -- neb -- bmp -- am -- monitor urine output --2500 cc 04/22- he is on high flow O2 now -- bipap at night -- ABG show worsening hypercapnia and metabolic alkalosis stop lasix as pulmon -- continue monitor respiratory status at 1735 RPT #:[id number] END OF REPORT [facility] 2023-04-22 11:57:00 [facility] ([facility] Cardiology Progress Note REPORT#:[id number] REPORT STATUS: Signed DATE:04/22/23 TIME: 1157 PATIENT: WILLI MERRITT UNIT #: [id number] ROOM/BED: [place] [id number] : 52 AGE: 72 SEX: M ATTEND: Marcela Samuel MD ADM AUTHOR: Jacqui Mcfadden APRNNP * ALL edits or amendments must be made on the electronic/computer document * Jacqui Mcfadden 04/22/23 1157: Subjective Chief complaint: Denies chest pain Objective General VS/I O: 24 hour I O ending at 0700: 04/22 0700 04/21 1900 Intake Total 814 400 Output Total 1999 1999 Balance -1186 -1600 Intake, Oral 814 400 Output, Urine 1999 1999 Patient 112.9 kg Weight Vital Signs: Date Time Temp Pulse Resp B/P B/P Pulse O2 O2 Flow FiO2 Mean Ox Delivery Rate 04/22 0909 98.4 60 14 100/50 66.9 95 Room air 04/22 0800 92 High flow 15 nasal cannula 04/22 0424 98.1 61 14 121/84 96.2 99 BiPAP mask 04/22 0412 60 99 60 04/22 0040 60 98 60 04/21 2330 97.7 60 14 119/66 83.7 99 BiPAP mask 04/21 2201 60 100 60 04/21 2201 100 High flow 15 nasal cannula 04/21 2100 BiPAP 04/21 1936 98.1 60 14 93/49 0.0 100 BiPAP mask 04/21 1638 98.1 60 14 127/62 83 97 04/21 1605 60 97 60 04/21 1605 97 BiPAP 60 PATIENT WEIGHT: Weight (lb): 248 Weight (oz): 14.43 Weight (kg): 112.900 Medications: Active Meds + DC'd Last 24 Hrs Enoxaparin Sodium (lovENOX) 120 MG BID SUBQ (CKD) Acetazolamide (DIAMOX) 250 MG BID IV Sterile Water (WATER FOR INJECTION) 5 ML ASDIR PRN IV Furosemide (LASIX 40 mg/4 mL INJECTION) 40 MG Q6H IV (DC) Dextrose/Water (DEXTROSE 10% IN WATER) 125 ML ASDIR PRN IV (CKD) Dextrose/Water (DEXTROSE 10% IN WATER) 250 ML ASDIR PRN IV (CKD) Glucagon (GLUCAGON) 1 MG ASDIR PRN IM Albuterol Sulfate (ALBUTEROL SULFATE) 2.5 MG RTQ4H PRN PRN NEB Glipizide (GLUCOTROL) 10 MG BID PO Insulin Human Lispro (HUMALOG) 0 AC HS SUBQ Aspirin (ASPIRIN) 81 MG DAILY PO Clopidogrel Bisulfate (Plavix) 75 MG DAILY PO Potassium Chloride (POTASSIUM CHLORIDE 20MEQ TAB.ER) 20 MEQ DAILY PO Atorvastatin Calcium (LIPITOR) 80 MG BEDTIME PO Lisinopril (lisinopriL) 5 MG Q12HR PO Metoprolol Tartrate (LOPRESSOR) 25 MG Q12H PO Physical Exam General appearance: no acute distress Head/Eyes: atraumatic ENT: moist mucosal membranes Neck: no JVD Cardiovascular: CV assessment: regular rate and rhythm Respiratory: crackles, decreased breath sounds Abdomen: soft, non-tender Lower extremity: LE assessment: edema Review of Systems All systems rev neg: except as marked Diagnosis, Assessment Plan Consultants: cardiology, pulmonary, surgery-oncology Free Text DxA P Notes Free Text DxA P Notes: TTE showed: 1. Left ventricle: The cavity size is moderately dilated. Wall thickness is normal. Systolic function is moderately reduced. The estimated ejection fraction is 35-39%. Left ventricular diastolic function parameters are indeterminate. 2. Right ventricle: TAPSE is 1.6 cm. Systolic function is low normal. 3. Mitral valve: There is mild regurgitation. 4. Pericardium, extracardiac: There is no pericardial effusion. ASSESSMENT AND PLAN: 1. 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 2. Dyspnea: Last echocardiogram done in 2021 showed ejection fraction of 35-40%, so the patient has [id number]-nplioco systolic heart failure. Diuresis with IV lasix Discussed the importance of compliance with medications/ follow up as well as fluid salt restriction. 3. Coronary artery disease, currently asymptomatic. MA ruled out. Plan: We will continue aspirin, Plavix and statins. 4. Hypertension. Continue metoprolol and lisinopril. 5. Dyslipidemia. Continue statins. POC discussed with Dr. Sancho Kingsley,Ariel A 04/22/23 1032: Attestations Physician Attestation Agree w/findings plan: I agree with above assessment and plan outlined by Jacqui Mcfadden NP. at 1202 at 2144 RPT #:[id number] END OF REPORT [facility] 2023-04-21 16:02:00 [facility] ([facility]) Pulmonology Progress Note REPORT#:[id number] REPORT STATUS: Signed DATE:04/21/23 TIME: 1602 PATIENT: WILLI MERRITT UNIT #: [id number] ROOM/BED: [place] [id number] : 52 AGE: 72 SEX: M ATTEND: Marcela Samuel MD ADM AUTHOR: Yaquelin Francis MD * ALL edits or amendments must be made on the electronic/computer document * Subjective Chief complaint: Mostly NIPPV dependent. Has been on AVAPS with short breaks for meals only. Somnolent, but arousable HPI: 72-year-old male with obesity, congestive heart failure, likely obstructive sleep apnea Presented with CHF exacerbation symptoms including shortness of breath, orthopnea, PND, lower extremity edema He is lethargic, confused, hypoxic, placed on Teleflex No recent change in medication or diet No fever or chills Objective General VS/I O: Last Documented: Result Date Time Pulse Ox 93 04/21 1150 O2 Delivery High flow nasal cannula 04/21 1150 O2 Flow Rate 15 04/21 1150 B/P 130/60 04/21 1043 B/P Mean 0.0 04/21 1043 Temp 36.7 04/21 1043 Pulse 60 04/21 1043 Resp 21 04/21 1043 FiO2 80 04/21 0914 24 hour I O ending at 0700: 04/21 0700 04/20 1900 Intake Total 100 Output Total 2500 Balance -2400 Intake, Oral 100 Number 2 Incontinent Voids Output, Urine 2500 Patient 116.5 kg Weight Weight Bed scale Measurement Method PATIENT WEIGHT: Weight (lb): 256 Weight (oz): 13.42 Weight (kg): 116.500 Results Findings/Data: Laboratory Tests 04/21 04/20 0434 1645 Blood Gas Puncture Site L Radial L Radial O2 Saturation (90 - 100 %) 99.4 99.6 ABG pH (7.35 - 7.45) 7.355 7.317 L ABG pCO2 (35.0 - 45 mmHg) 67.7 *H 73.5 *H ABG pO2 (80 - 100.0 mmHg) 171.3 H 205.8 *H ABG PO2/FiO2 Ratio (mm/Hg) 171.30 ABG HCO3 (22.0 - 26.0 MMOL/L) 37.8 *H 37.6 *H ABG Total CO2 39.9 39.9 ABG Base Excess (-4.0 - 4.0 MMOL/L) 12.3 H 11.5 H Kathe Test Positive Positive O2 Delivery Device avaps BiPAP Vent Mode avaps FiO2 (%) 100 Laboratory Tests 04/21 04/20 1037 2005 Chemistry POC Glucose (70 - 110 MG/DL) 108 143 H Radiology data: Recent Impressions: RADIOLOGY - XR CHEST 1 V 04/21 0535 Report Impression - Status: SIGNED Entered: 04/21/2023 0905 IMPRESSION: Mildly worsening lung opacities. Impression By: [email or web address] - Mark Villanueva M.D. Free Text Obj Notes Free Text Obj Notes: General appearance: Awake but confused and lethargic Head/Eyes: atraumatic, normocephalic, PERRLA Neck: full range of motion, non-tender, normal thyroid Cardiovascular: normal heart sounds, normal S1/S2, regular rate rhythm Respiratory/chest: aerating well, clear to auscultation, symmetric expansion Abdomen: soft, non-tender, normal bowel sounds Genitourinary: no bladder distention, no flank pain Extremities: No edema, moves all, normal capillary refill, no calf tenderness Musculoskeletal: full range of motion, normal inspection, painless range of motion, straight leg raise neg Skin: dry, intact, normal color Diagnosis, Assessment Plan Free Text A P: 1. Acute hypercapnic respiratory failure Chronic respiratory failure with hypoxia Obesity ventilation syndrome/obstructive sleep apnea Acute pulmonary edema Acute exacerbation of chronic systolic heart failure All labs and imaging reviewed. ABG reviewed persistent hypercapnia despite AVAPS support. Patient remains somnolent. Tidal volumes variable from 300 400 ml Switch to BiPAP 22/8. Improved minute ventilation. Repeat ABG in 1 hour. Chest x-ray reviewed worsening pulmonary edema. Remains on IV Lasix. Repeat chemistry and magnesium. Consider adding Diamox. Check LE Doppler and D-dimer Consultants: cardiology, pulmonary, surgery-oncology at 1606 RPT #:[id number] END OF REPORT [facility] 2023-04-21 12:33:00 [facility] ([facility] Hospitalist Progress Note REPORT#:[id number] REPORT STATUS: Signed DATE:04/21/23 TIME: 1233 PATIENT: WILLI MERRITT UNIT #: [id number] ROOM/BED: [place] [address] : 52 AGE: 72 SEX: M ATTEND: Marcela Samuel MD ADM AUTHOR: Tamara Esposito MD * ALL edits or amendments must be made on the electronic/computer document * Subjective Chief complaint: he is on bipap . he remain sob and edema HPI: 72-year-old male with a history of diabetes, hypertension, CAD status post stents presents to the emergency department as a transfer for CHF/heart failure. Patient states he began having shortness of breath and bilateral lower extremity swelling 2 days ago and his symptoms progressed. At the outside facility he was started on BiPAP and given 40 mg of IV Lasix. Patient also endorsed some chest pain which has now resolved. Denies fever, chills, abdominal pain, nausea, vomiting, diarrhea, constipation, melena, hematochezia. Review of Systems Respiratory: Reports: SOB. Cardiovascular: Reports: UGALDE (dyspnea on exertion), edema. All systems rev neg: except as noted Objective General VS/I O: Vital Signs: Date Time Temp Pulse Resp B/P B/P Pulse O2 O2 Flow FiO2 Mean Ox Delivery Rate 04/21 1043 36.7 60 21 130/60 0.0 100 BiPAP mask 04/21 0914 72 20 100 40 80 04/21 0832 60 98 80 04/21 0832 98 BiPAP 80 04/21 0547 80 04/21 0356 36.0 59 20 109/63 78.0 95 04/21 0059 65 98 100 04/20 2322 36.1 60 20 116/79 91.4 99 04/20 2101 60 18 115/57 82 100 04/20 2100 BiPAP 04/20 2058 60 24 109/55 76 100 04/20 2053 62 98 100 04/20 1854 36.5 60 22 115/67 83.1 99 04/20 1850 60 18 100 04/20 1812 60 22 100 04/20 1800 60 19 99 04/20 1700 60 10 100 04/20 1600 66 38 72 04/20 1558 36.5 64 28 131/71 91 98 04/20 1500 60 29 93 04/20 1400 71 26 85 04/20 1316 68 28 135/63 90 98 04/20 1300 High flow nasal cannula 04/20 1300 70 35 95 24 hour I O ending at 0700: 04/21 0700 04/20 1900 Intake Total 100 Output Total 2500 Balance -2400 Intake, Oral 100 Number 2 Incontinent Voids Output, Urine 2500 Patient 116.5 kg Weight Weight Bed scale Measurement Method PATIENT WEIGHT: Weight (lb): 256 Weight (oz): 13.42 Weight (kg): 116.500 Medications: Active Meds + DC'd Last 24 Hrs Furosemide (LASIX 40 mg/4 mL INJECTION) 40 MG Q6H IV (CKD) Dextrose/Water (DEXTROSE 10% IN WATER) 125 ML ASDIR PRN IV (CKD) Dextrose/Water (DEXTROSE 10% IN WATER) 250 ML ASDIR PRN IV (CKD) Glucagon (GLUCAGON) 1 MG ASDIR PRN IM Albuterol Sulfate (ALBUTEROL SULFATE) 2.5 MG RTQ4H PRN PRN NEB Glipizide (GLUCOTROL) 10 MG BID PO Insulin Human Lispro (HUMALOG) 0 AC HS SUBQ Aspirin (ASPIRIN) 81 MG DAILY PO Clopidogrel Bisulfate (Plavix) 75 MG DAILY PO Potassium Chloride (POTASSIUM CHLORIDE 20MEQ TAB.ER) 20 MEQ DAILY PO Atorvastatin Calcium (LIPITOR) 80 MG BEDTIME PO Lisinopril (lisinopriL) 5 MG Q12HR PO Metoprolol Tartrate (LOPRESSOR) 25 MG Q12H PO Physical Exam General appearance: alert, awake, oriented Head/Eyes: atraumatic, clear cornea, EOMI, normal conjunctiva/sclera, normal eyelids/periorb., normocephalic, PERRL ENT: normal dentition, normal ear left, normal ear right, normal nose, normal pharynx, normal sinus Neck: full range of motion, non-tender, normal thyroid, supple/no meningismus, no bruit/NL carotids, no JVD, no masses or swelling Cardiovascular: normal capillary refill, regular rate rhythm Respiratory: dyspneic, hypoxia, on oxygen (NRB), clear to auscultation Abdomen: non-tender, normal bowel sounds, soft, no distention, no guarding, no hernia, no mass/organomegaly, no rebound Extremities: edema, moves all, normal capillary refill, normal range of motion Musculoskeletal: normal inspection Neuro/HAND STONER: alert, oriented X 3 Skin: dry, intact Psychiatry: normal affect, normal judgment/insight, normal mood, not homicidal, not suicidal, no hallucinations Results Findings/Data: Laboratory Tests 04/21 04/20 0434 1645 Blood Gas Puncture Site L Radial L Radial O2 Saturation (90 - 100 %) 99.4 99.6 ABG pH (7.35 - 7.45) 7.355 7.317 L ABG pCO2 (35.0 - 45 mmHg) 67.7 *H 73.5 *H ABG pO2 (80 - 100.0 mmHg) 171.3 H 205.8 *H ABG PO2/FiO2 Ratio (mm/Hg) 171.30 ABG HCO3 (22.0 - 26.0 MMOL/L) 37.8 *H 37.6 *H ABG Total CO2 39.9 39.9 ABG Base Excess (-4.0 - 4.0 MMOL/L) 12.3 H 11.5 H Kathe Test Positive Positive O2 Delivery Device avaps BiPAP Vent Mode avaps FiO2 (%) 100 Laboratory Tests 04/21 04/20 04/20 1037 2004 1508 Chemistry POC Glucose (70 - 110 MG/DL) 108 143 H 189 H Radiology data: Recent Impressions: RADIOLOGY - XR CHEST 1 V 04/21 0535 Report Impression - Status: SIGNED Entered: 04/21/2023 0905 IMPRESSION: Mildly worsening lung opacities. Impression By: [email or web address] - Mark Villanueva M.D. Diagnosis, Assessment Plan Consultants: cardiology, pulmonary, surgery-oncology Free Text DxA P Notes Free text DxA P notes: Impression: 72 yo male admitted w Acute on chronic systolic HF Uncontrolled DM 2 w other circulatory complications HTN heart disease w HF CAD SP Stents acute respiratory failure -- hypoxia Continue IV Lasix, supplement K while on Lasix. Cardiology consult on case, echo noted with EF 35-39%. Hyperglycemic, change regular diet to ADA. Start medium dose sliding scale. He takes Novolog BID at home. Continue accuchecks. Labs AM, BMP, lipid, A1C. Cardiac monitoring. 04/19- he improve . no cp no sob -- lasix iv -- FS --under control on glyburite -- DM--poor control 04/20- sob -- on high flow O2 -- neb --lasix iv q 6 h -- FS-- fair control -- continue monitor in CV imcu 04/21- he remain sob and hypoxia -- on bipap all the times accept for meal -- continue lasix iv -- CXR -- worse edema -- neb -- bmp -- am -- monitor urine output --2500 cc at 1710 RPT #:[id number] END OF REPORT [facility] 2023-04-21 11:43:00 [facility] Cardiology Progress Note REPORT#:[id number] REPORT STATUS: Signed DATE:04/21/23 TIME: 1143 PATIENT: WILLI MERRITT UNIT #: [id number] ROOM/BED: [place] [address] : 52 AGE: 72 SEX: M ATTEND: Marcela Samuel MD ADM AUTHOR: Jacqui Mcfadden * ALL edits or amendments must be made on the electronic/computer document * Jacqui Mcfadden 04/21/23 1143: Subjective Chief complaint: Denies chest pain Objective General VS/I O: 24 hour I O ending at 0700: 04/21 0700 04/20 1900 Intake Total 100 Output Total 2500 Balance -2400 Intake, Oral 100 Number 2 Incontinent Voids Output, Urine 2500 Patient 116.5 kg Weight Weight Bed scale Measurement Method Vital Signs: Date Time Temp Pulse Resp B/P B/P Pulse O2 O2 Flow FiO2 Mean Ox Delivery Rate 04/21 1043 98.1 60 21 130/60 0.0 100 BiPAP mask 04/21 0914 72 20 100 40 80 04/21 0832 60 98 80 07/12 0832 98 BiPAP 80 07/12 0547 80 07/12 0356 96.8 59 20 109/63 78.0 95 07/12 0059 65 98 100 07/ 2322 97.0 60 20 116/79 91.4 99 07/11 2101 60 18 115/57 82 100 07/11 2100 BiPAP / 2058 60 24 109/55 76 100 / 2053 62 98 100 07/11 1854 97.7 60 22 115/67 83.1 99 07/11 1850 60 18 100 07/11 1812 60 22 100 07/11 1800 60 19 99 07/11 1700 60 10 100 07/11 1600 66 38 72 07/11 1558 97.7 64 28 131/71 91 98 /11 1500 60 29 93 07/11 1400 71 26 85 07/11 1316 68 28 135/63 90 98 07/11 1300 High flow nasal cannula / 1300 70 35 95 07/11 1200 62 24 97 PATIENT WEIGHT: Weight (lb): 256 Weight (oz): 13.42 Weight (kg): 116.500 Medications: Active Meds + DC'd Last 24 Hrs Furosemide (LASIX 40 mg/4 mL INJECTION) 40 MG Q6H IV (CKD) Dextrose/Water (DEXTROSE 10% IN WATER) 125 ML ASDIR PRN IV (CKD) Dextrose/Water (DEXTROSE 10% IN WATER) 250 ML ASDIR PRN IV (CKD) Glucagon (GLUCAGON) 1 MG ASDIR PRN IM Albuterol Sulfate (ALBUTEROL SULFATE) 2.5 MG RTQ4H PRN PRN NEB Glipizide (GLUCOTROL) 10 MG BID PO Insulin Human Lispro (HUMALOG) 0 AC HS SUBQ Aspirin (ASPIRIN) 81 MG DAILY PO Clopidogrel Bisulfate (Plavix) 75 MG DAILY PO Furosemide (LASIX 40 mg/4 mL INJECTION) 40 MG DAILY IV (DC) Potassium Chloride (POTASSIUM CHLORIDE 20MEQ TAB.ER) 20 MEQ DAILY PO Atorvastatin Calcium (LIPITOR) 80 MG BEDTIME PO Lisinopril (lisinopriL) 5 MG Q12HR PO Acetaminophen/Codeine Phosphate (TYLENOL W CODEINE NO.3) 1 TAB Q4H PRN PRN PO (DC) Metoprolol Tartrate (LOPRESSOR) 25 MG Q12H PO Physical Exam General appearance: no acute distress Head/Eyes: atraumatic ENT: moist mucosal membranes Neck: no JVD Cardiovascular: CV assessment: regular rate and rhythm Respiratory: crackles, decreased breath sounds Abdomen: soft, non-tender Lower extremity: LE assessment: edema Review of Systems All systems rev neg: except as marked Diagnosis, Assessment Plan Hospital course to date: TTE showed: 1. Left ventricle: The cavity size is moderately dilated. Wall thickness is normal. Systolic function is moderately reduced. The estimated ejection fraction is 35-39%. Left ventricular diastolic function parameters are indeterminate. 2. Right ventricle: TAPSE is 1.6 cm. Systolic function is low normal. 3. Mitral valve: There is mild regurgitation. 4. Pericardium, extracardiac: There is no pericardial effusion. ASSESSMENT AND PLAN: 1. 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 2. Dyspnea: Last echocardiogram done in 2021 showed ejection fraction of 35-40%, so the patient has [id number] systolic heart failure. Plan is to continue IV diuretics. Discussed the importance of compliance with medications/ follow up as well as fluid salt restriction. 3. Coronary artery disease, currently asymptomatic. MA ruled out. Plan: We will continue aspirin, Plavix and statins. 4. Hypertension. Continue metoprolol and lisinopril. 5. Dyslipidemia. Continue statins. OK to transfer to telemetry. POC discussed with Steffanie Ahn 05/03/23 0948: Attestations Physician Attestation Agree w/findings plan: I have seen and examined the patient at bedside. I have reveiwed the relevant test results and formulated the assessment and plan. I agree with the note by TABLE COVER FOLDER. at 1144 at 1026 [facility] #:[id number] END OF REPORT [facility] 2023-04-20 13:20:00 [facility] Cardiology Progress Note REPORT#:[id number] REPORT STATUS: Signed DATE:04/20/23 TIME: 1320 PATIENT: WILLI MERRITT UNIT #: [id number] ROOM/BED: [place] [address] : [birth year] AGE: 72 SEX: M ATTEND: Marcela Samuel MD ADM AUTHOR: Jacqui Mcfadden APRNNP * ALL edits or amendments must be made on the electronic/computer document * Jacqui Mcfadden 04/20/23 1320: Subjective Chief complaint: Denies chest pain Objective General VS/I O: 24 hour I O ending at 0700: 04/20 0700 04/19 1900 Intake Total 300 Output Total 450 Balance -150 Intake, Oral 300 Output, Urine 450 Vital Signs: Date Time Temp Pulse Resp B/P B/P Pulse O2 O2 Flow FiO2 Mean Ox Delivery Rate 04/20 718 62 24 129/68 88.3 90 High flow nasal cannula 04/20 0525 97.7 60 12 90 04/20 0413 60 21 90 55 87 04/20 0032 60 28 124/58 84 93 04/19 2321 60 30 147/75 102 97 04/19 2030 65 12 90 55 80 04/19 2000 High flow 55 80 nasal cannula 04/19 2000 98 55 80 04/19 1813 High flow 15 nasal cannula 04/19 1627 98.4 61 14 124/77 92.8 96 Nasal cannula PATIENT WEIGHT: Weight (lb): 261 Weight (oz): 7.49 Weight (kg): 118.600 Medications: Active Meds + DC'd Last 24 Hrs Furosemide (LASIX 40 mg/4 mL INJECTION) 40 MG Q6H IV (CKD) Sterile Water (WATER FOR INJECTION) 1.2 ML ASDIR PRN IM (DC) Ziprasidone (GEODON 20MG VIAL) 5 MG ONCE ONE IM (DC) Dextrose/Water (DEXTROSE 10% IN WATER) 125 ML ASDIR PRN IV (CKD) Dextrose/Water (DEXTROSE 10% IN WATER) 250 ML ASDIR PRN IV (CKD) Glucagon (GLUCAGON) 1 MG ASDIR PRN IM Albuterol Sulfate (ALBUTEROL SULFATE) 2.5 MG RTQ4H PRN PRN NEB Glipizide (GLUCOTROL) 10 MG BID PO Insulin Human Lispro (HUMALOG) 0 AC HS SUBQ Aspirin (ASPIRIN) 81 MG DAILY PO Clopidogrel Bisulfate (Plavix) 75 MG DAILY PO Furosemide (LASIX 40 mg/4 mL INJECTION) 40 MG DAILY IV (DC) Potassium Chloride (POTASSIUM CHLORIDE 20MEQ TAB.ER) 20 MEQ DAILY PO Atorvastatin Calcium (LIPITOR) 80 MG BEDTIME PO Lisinopril (lisinopriL) 5 MG Q12HR PO Acetaminophen/Codeine Phosphate (TYLENOL W CODEINE NO.3) 1 TAB Q4H PRN PRN PO (DC) Metoprolol Tartrate (LOPRESSOR) 25 MG Q12H PO Physical Exam General appearance: no acute distress Head/Eyes: atraumatic ENT: moist mucosal membranes Neck: no JVD Cardiovascular: CV assessment: regular rate and rhythm Respiratory: crackles, decreased breath sounds Abdomen: soft, non-tender Lower extremity: LE assessment: edema Review of Systems All systems rev neg: except as marked Diagnosis, Assessment Plan Hospital course to date: TTE showed: 1. Left ventricle: The cavity size is moderately dilated. Wall thickness is normal. Systolic function is moderately reduced. The estimated ejection fraction is 35-39%. Left ventricular diastolic function parameters are indeterminate. 2. Right ventricle: TAPSE is 1.6 cm. Systolic function is low normal. 3. Mitral valve: There is mild regurgitation. 4. Pericardium, extracardiac: There is no pericardial effusion. ASSESSMENT AND PLAN: 1. 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 2. Dyspnea: Last echocardiogram done in 2021 showed ejection fraction of 35-40%, so the patient has ewuqe-sz-qmqvcvl systolic heart failure. Plan is to continue IV diuretics. Discussed the importance of compliance with medications/ follow up as well as fluid salt restriction. 3. Coronary artery disease, currently asymptomatic. MA ruled out. Plan: We will continue aspirin, Plavix and statins. 4. Hypertension. Continue metoprolol and lisinopril. 5. Dyslipidemia. Continue statins. OK to transfer to telemetry. POC discussed with Ariel Wagoner 04/20/23 1636: Attestations Physician Attestation Agree w/findings plan: I agree with above assessment and plan as outlined by Jacqui Mcfadden NP. at 1320 at 1826 RPT #:[id number] END OF REPORT [facility] 2023-04-20 13:20:00 [facility] ([facility]) Hospitalist Progress Note REPORT#:[id number] REPORT STATUS: Signed DATE:04/20/23 TIME: 1320 PATIENT: WILLI MERRITT UNIT #: [id number] ROOM/BED: [place] [address] : 54 AGE: 72 SEX: M ATTEND: Marcela Samuel MD ADM AUTHOR: Tamara Esposito MD * ALL edits or amendments must be made on the electronic/computer document * Subjective Chief complaint: he is on high flow O2 . HPI: 72-year-old male with a history of diabetes, hypertension, CAD status post stents presents to the emergency department as a transfer for CHF/heart failure. Patient states he began having shortness of breath and bilateral lower extremity swelling 2 days ago and his symptoms progressed. At the outside facility he was started on BiPAP and given 40 mg of IV Lasix. Patient also endorsed some chest pain which has now resolved. Denies fever, chills, abdominal pain, nausea, vomiting, diarrhea, constipation, melena, hematochezia. Review of Systems Respiratory: Reports: SOB. All systems rev neg: except as noted Objective General VS/I O: Vital Signs: Date Time Temp Pulse Resp B/P B/P Pulse O2 O2 Flow FiO2 Mean Ox Delivery Rate 04/20 718 62 24 129/68 88.3 90 High flow nasal cannula 04/20 0525 36.5 60 12 90 04/20 0413 60 21 90 55 87 04/20 0032 60 28 124/58 84 93 04/19 2321 60 30 147/75 102 97 04/19 2030 65 12 90 55 80 04/19 2000 High flow 55 80 nasal cannula 04/19 2000 98 55 80 04/19 181 High flow 15 nasal cannula 04/19 1627 36.9 61 14 124/77 92.8 96 Nasal cannula 24 hour I O ending at 0700: 04/20 1900 Intake Total 300 Output Total 450 Balance -150 Intake, Oral 300 Output, Urine 450 PATIENT WEIGHT: Weight (lb): 261 Weight (oz): 7.49 Weight (kg): 118.600 Medications: Active Meds + DC'd Last 24 Hrs Furosemide (LASIX 40 mg/4 mL INJECTION) 40 MG Q6H IV (CKD) Sterile Water (WATER FOR INJECTION) 1.2 ML ASDIR PRN IM (DC) Ziprasidone (GEODON 20MG VIAL) 5 MG ONCE ONE IM (DC) Dextrose/Water (DEXTROSE 10% IN WATER) 125 ML ASDIR PRN IV (CKD) Dextrose/Water (DEXTROSE 10% IN WATER) 250 ML ASDIR PRN IV (CKD) Glucagon (GLUCAGON) 1 MG ASDIR PRN IM Albuterol Sulfate (ALBUTEROL SULFATE) 2.5 MG RTQ4H PRN PRN NEB Glipizide (GLUCOTROL) 10 MG BID PO Insulin Human Lispro (HUMALOG) 0 AC HS SUBQ Aspirin (ASPIRIN) 81 MG DAILY PO Clopidogrel Bisulfate (Plavix) 75 MG DAILY PO Furosemide (LASIX 40 mg/4 mL INJECTION) 40 MG DAILY IV (DC) Potassium Chloride (POTASSIUM CHLORIDE 20MEQ TAB.ER) 20 MEQ DAILY PO Atorvastatin Calcium (LIPITOR) 80 MG BEDTIME PO Lisinopril (lisinopriL) 5 MG Q12HR PO Acetaminophen/Codeine Phosphate (TYLENOL W CODEINE NO.3) 1 TAB Q4H PRN PRN PO (DC) Metoprolol Tartrate (LOPRESSOR) 25 MG Q12H PO Physical Exam General appearance: alert, awake, oriented Head/Eyes: atraumatic, clear cornea, EOMI, normal conjunctiva/sclera, normal eyelids/periorb., normocephalic, PERRL ENT: normal dentition, normal ear left, normal ear right, normal nose, normal pharynx, normal sinus Neck: full range of motion, non-tender, normal thyroid, supple/no meningismus, no bruit/NL carotids, no JVD, no masses or swelling Cardiovascular: normal capillary refill, regular rate rhythm Respiratory: dyspneic, hypoxia, on oxygen (NRB), clear to auscultation Abdomen: non-tender, normal bowel sounds, soft, no distention, no guarding, no hernia, no mass/organomegaly, no rebound Extremities: edema, moves all, normal capillary refill, normal range of motion Musculoskeletal: normal inspection Neuro/HAND STONER: alert, oriented X 3 Skin: dry, intact Psychiatry: normal affect, normal judgment/insight, normal mood, not homicidal, not suicidal, no hallucinations Results Findings/Data: Laboratory Tests 04/20 04/20 04/19 04/19 04/19 1134 0716 2314 1624 1108 Chemistry POC Glucose (70 - 110 MG/DL) 149 H 192 H 210 H 138 H 188 H 04/19 04/19 04/19 04/18 04/18 0853 0852 0659 2118 1613 Chemistry Sodium (134 - 147 mEq/L) 137 Potassium (3.4 - 5.0 mEq/L) 4.6 Chloride (100 - 108 mEq/L) 99 L Carbon Dioxide (21 - 33 mEq/l) 36 H Anion Gap (0 - 20) 7 BUN (7 - 18 mg/dL) 14 Creatinine (0.6 - 1.3 mg/dL) 1.4 H Glomerular Filtr Rate (70 - 80) 54.1 L Glucose (70 - 110 mg/dL) 172 H POC Glucose (70 - 110 MG/DL) 225 H 285 H 290 H Hemoglobin A1c (4.8 - 6.0 %A1C) 10.5 H Calcium (8.0 - 10.5 mg/dL) 8.6 Triglycerides (40 - 150 mg/dL) 91 Cholesterol (<200 mg/dL) 93 LDL Cholesterol Measurd (0 - 100 mg/dL) 50.0 HDL Cholesterol (40 - 60 MG/DL) 30.9 L Cholesterol/HDL Ratio (3.43 - 4.97 RATIO) 3.01 L 04/18 04/18 04/18 1126 0444 0444 Chemistry Sodium (134 - 147 mEq/L) 138 Potassium (3.4 - 5.0 mEq/L) 4.3 Chloride (100 - 108 mEq/L) 100 Carbon Dioxide (21 - 33 mEq/l) 36 H Anion Gap (0 - 20) 7 BUN (7 - 18 mg/dL) 9 Creatinine (0.6 - 1.3 mg/dL) 1.2 Glomerular Filtr Rate (70 - 80) 65.1 L Glucose (70 - 110 mg/dL) 285 H POC Glucose (70 - 110 MG/DL) 258 H Calcium (8.0 - 10.5 mg/dL) 8.1 Troponin I High Sens (0 - 54 ng/L) 9 Laboratory Tests 04/18 0444 Hematology WBC (4.5 - 11.0 x10 3/uL) 7.1 RBC (4.00 - 5.60 x10 6/uL) 4.11 Hgb (12.5 - 16.9 g/dL) 12.4 L Hct (37.5 - 50.7 %) 42.6 MCV (81.0 - 99.0 fL) 103.6 H MCH (27.0 - 33.0 pg) 30.2 MCHC (33.0 - 37.0 g/dL) 29.1 L RDW (11.5 - 14.5 %) 15.3 H Plt Count (150 - 400 x10 3/uL) 206 MPV (7.0 - 9.0 fL) 11.8 H Neut % (Auto) (56.0 - 77.0 %) 73.1 Lymph % (Auto) (14.0 - 32.0 %) 12.3 L Florence % (Auto) (4.8 - 9.0 %) 12.3 H Eos % (Auto) (0.3 - 3.7 %) 1.7 Baso % (Auto) (0.0 - 2.0 %) 0.3 Neut # (Auto) (2.0 - 7.6 x10 3/uL) 5.19 Lymph # (Auto) (1.0 - 3.8 x10 3/uL) 0.87 L Florence # (Auto) (0.1 - 0.8 x10 3/uL) 0.87 H Eos # (Auto) (0.0 - 0.2 x10 3/uL) 0.12 Baso # (Auto) (0.0 - 0.2 x10 3/uL) 0.02 Abs Immat Gran (auto) (0.00 - 0.03 x10 3/uL) 0.02 Add Manual Diff NO Immature Gran % (0.0 - 2.0 %) 0.3 Nucleated RBC % (0 - 0 %) 0.0 Nucleated RBCs # (Man) (0.0 - 0.1 x10 3/uL) 0.00 Laboratory Tests 04/20 04/20 04/19 04/19 1134 0716 2314 1624 Chemistry POC Glucose (70 - 110 MG/DL) 149 H 192 H 210 H 138 H Diagnosis, Assessment Plan Consultants: cardiology, pulmonary, surgery-oncology Free Text DxA P Notes Free text DxA P notes: Impression: 72 yo male admitted w Acute on chronic systolic HF Uncontrolled DM 2 w other circulatory complications HTN heart disease w HF CAD SP Stents acute respiratory failure -- hypoxia Continue IV Lasix, supplement K while on Lasix. Cardiology consult on case, echo noted with EF 35-39%. Hyperglycemic, change regular diet to ADA. Start medium dose sliding scale. He takes Novolog BID at home. Continue accuchecks. Labs AM, BMP, lipid, A1C. Cardiac monitoring. 04/19- he improve . no cp no sob -- lasix iv -- FS --under control on glyburite -- DM--poor control 04/20- sob -- on high flow O2 -- neb --lasix iv q 6 h -- FS-- fair control -- continue monitor in CV imcu at 1742 RPT #:[id number] END OF REPORT [facility] 2023-04-20 11:47:00 [facility] ([facility]) Pulmonary Consultation Note REPORT#:[id number] REPORT STATUS: Signed DATE:04/20/23 TIME: 1147 PATIENT: WILLI MERRITT UNIT #: [id number] ROOM/BED: [place] [address] : 52 AGE: 72 SEX: M ATTEND: Marcela Samuel MD ADM AUTHOR: Ankush Alexander MD * ALL edits or amendments must be made on the electronic/computer document * History of Present Illness HPI HPI: 72-year-old male with obesity, congestive heart failure, likely obstructive sleep apnea Presented with CHF exacerbation symptoms including shortness of breath, orthopnea, PND, lower extremity edema He is lethargic, confused, hypoxic, placed on Teleflex No recent change in medication or diet No fever or chills History - Adult longitudinal Past medical history: Reports: Coronary artery disease, Diabetes mellitus, Hypertension, Dyslipidemia. Additional surgical history: None Additional family history: Not contributory to current problem Smoking status for patients 13 years old or older: Never Smoker Medications: Home Medications: Medication Dose/Rte/Freq Days Qty Entered Last Max Daily Dose Reviewed INSULIN ASPART 16 UNITS SUBQ BID 10/31/21 (NovoLOG CARTRIDGE 1704 (15mL)) Strength: (Unknown Strength) CARTRIDGE IBUPROFEN (MOTRIN) 800 MG PO 11/24/21 Strength: 800 MG TAB Q8H PRN PRN PAIN 1021 glipiZIDE (GLUCOTROL) 10 MG PO BID 11/24/21 Strength: 10 MG TAB 1023 ACETAMINOPHEN/CODEINE 1 TAB PO 11/24/21 (TYLENOL WITH CODEINE Q4H PRN PRN ACUTE 1027 #3 300/30 MG) PAIN Strength: 300 MG-30 MG TAB TERAZOSIN (HYTRIN) 10 MG PO BEDTIME 11/24/21 Strength: 10 MG CAP 1028 FUROSEMIDE (LASIX) 80 MG PO DAILY 11/24/21 Strength: 80 MG TAB 1029 ALBUTEROL 1 PUFF INH BID 11/24/21 (VENTOLIN HFA 90 1142 MCG/ACT 18 GM) Strength: 90 MCG INHALER FUROSEMIDE (LASIX) 40 MG PO BEDTIME 12/23/21 Strength: 40 MG TAB 1123 METOPROLOL TARTRATE 25 MG PO Q12H 60 11/01/21 (LOPRESSOR) 0947 Strength: 50 MG TAB LISINOPRIL (ZESTRIL) 5 MG PO Q12HR 60 11/01/21 Strength: 5 MG TAB 0947 ATORVASTATIN (LIPITOR) 80 MG PO DAILY 30 11/01/21 Strength: 80 MG TAB 0949 AMIODARONE (PACERONE) 200 MG PO BID 60 11/01/21 Strength: 200 MG TAB 0950 ASPIRIN 81 MG PO DAILY 90 90 11/26/21 Strength: 81 MG TAB.CHEW 1008 CLOPIDOGREL (PLAVIX) 75 MG PO DAILY 90 90 12/24/21 Strength: 75 MG TAB 1341 Current Hospital Medications: Autonomic Drugs Sig/Lala Start time Last Medication Dose Route Stop Time Status Admin Albuterol Sulfate 2.5 MG RTQ4H PRN PRN 04/18 2100 AC 04/18 (ALBUTEROL SULFATE) NEB 05/18 Blood Formation,Coagulation Sig/Lala Start time Last Medication Dose Route Stop Time Status Admin Clopidogrel Bisulfate 75 MG DAILY 04/18 09 AC 04/20 (Plavix) PO 05/18 0859 0837 Cardiovascular Drugs Sig/Lala Start time Last Medication Dose Route Stop Time Status Admin Atorvastatin Calcium 80 MG BEDTIME 04/17 2100 AC 04/19 (LIPITOR) PO 05/17 2059 2318 Lisinopril 5 MG Q12HR 04/17 2100 AC 04/20 (lisinopriL) PO 05/17 2059 0840 Metoprolol Tartrate 25 MG Q12H 04/17 1230 AC 04/20 (LOPRESSOR) PO 05/17 1229 0036 Central Nervous System Agents Sig/Lala Start time Last Medication Dose Route Stop Time Status Admin Ziprasidone 5 MG ONCE ONE 04/20 0230 DC 04/20 (GEODON 20MG VIAL) IM 04/20 231 0235 Aspirin 81 MG DAILY 04/18 900 AC 04/20 (ASPIRIN) PO 05/18 0859 0837 Acetaminophen/ 1 TAB Q4H PRN PRN 04/17 1230 AC 04/20 Codeine Phosphate PO 04/22 1229 0045 (TYLENOL W CODEINE NO.3) Electrolytic, Caloric, And Sven Sig/Lala Start time Last Medication Dose Route Stop Time Status Admin Dextrose/Water 125 ML ASDIR PRN 04/19 1330 CKD (DEXTROSE 10% IN IV 05/19 1329 WATER) Dextrose/Water 250 ML ASDIR PRN 04/19 1330 CKD (DEXTROSE 10% IN IV 05/19 1329 WATER) Furosemide 40 MG DAILY 04/18 900 AC 04/20 (LASIX 40 mg/4 mL IV 05/18 08 0837 INJECTION) Potassium Chloride 20 MEQ DAILY 04/18 900 AC 04/20 (POTASSIUM CHLORIDE PO 05/18 08 0837 20MEQ TAB.ER) Hormones And Synthetic Substit Sig/Lala Start time Last Medication Dose Route Stop Time Status Admin Glucagon 1 MG ASDIR PRN 04/19 1330 AC (GLUCAGON) IM 05/19 1329 Glipizide 10 MG BID 04/18 2100 AC 04/20 (GLUCOTROL) PO 05/18 2059 0840 Insulin Human Lispro 0 AC HS 04/18 1630 AC 04/20 (HUMALOG) SUBQ 05/18 1629 0836 Pharmaceutical Aids Sig/Lala Start time Last Medication Dose Route Stop Time Status Admin Sterile Water 1.2 ML ASDIR PRN 04/20 0230 DC 04/20 (WATER FOR INJECTION) IM 04/20 0600 0235 Allergies: Coded Allergies: No Known Allergies (12/23/21) Review of Systems Unable to obtain due to: Lethargic Objective Physical Exam Vitals: Last Documented: Result Date Time Pulse Ox 90 04/20 718 B/P 129/68 04/20 718 B/P Mean 88.3 04/20 718 O2 Delivery High flow nasal cannula 04/20 718 Pulse 62 04/20 718 Resp 24 04/20 718 Temp 36.5 04/20 05 FiO2 87 04/20 041 O2 Flow Rate 55 04/20 041 Results Results: x-ray personally reviewed Free Text Obj Notes Free Text Obj Notes: General appearance: Awake but confused and lethargic Head/Eyes: atraumatic, normocephalic, PERRLA Neck: full range of motion, non-tender, normal thyroid Cardiovascular: normal heart sounds, normal S1/S2, regular rate rhythm Respiratory/chest: aerating well, clear to auscultation, symmetric expansion Abdomen: soft, non-tender, normal bowel sounds Genitourinary: no bladder distention, no flank pain Extremities: No edema, moves all, normal capillary refill, no calf tenderness Musculoskeletal: full range of motion, normal inspection, painless range of motion, straight leg raise neg Skin: dry, intact, normal color Diagnosis, Assessment Plan Free Text DxA P Notes Free Text DxA P Notes: 1. Acute hypercapnic respiratory failure #2 chronic respiratory failure #3 obesity ventilation syndrome/obstructive sleep apnea #4 CHF exacerbation #5 encephalopathy 72-year-old, with congestive heart failure, his EF is 35% He is in exacerbation Metabolic alkalosis likely compensation for chronic respiratory acidosis Encephalopathy this is CO2 narcosis On Teleflex without significant improvement Plan: ABG stat AVAPS, 550, 24, PEEP of 10 Aggressive diuresis with Lasix 40 IV every 6 hours If there is no improvement we will start him on Precedex drip and transfer him to the ICU Check ammonia level DVT prophylaxis Thank you for the consult at 1150 RPT #[id number] END OF REPORT [facility] 2023-04-19 14:21:00 [facility] Hospitalist Progress Note REPORT#:[id number] REPORT STATUS: Signed DATE:04/19/23 TIME: 1421 PATIENT: WILLI MERRITT UNIT #: [id number] ROOM/BED: [address] : [birth year] AGE: 72 SEX: M ATTEND: Marcela Samuel MD ADM AUTHOR: Tamara Esposiot MD * ALL edits or amendments must be made on the electronic/computer document * Subjective Chief complaint: he sit on the chair . no cp no sob HPI: 72-year-old male with a history of diabetes, hypertension, CAD status post stents presents to the emergency department as a transfer for CHF/heart failure. Patient states he began having shortness of breath and bilateral lower extremity swelling 2 days ago and his symptoms progressed. At the outside facility he was started on BiPAP and given 40 mg of IV Lasix. Patient also endorsed some chest pain which has now resolved. Denies fever, chills, abdominal pain, nausea, vomiting, diarrhea, constipation, melena, hematochezia. Review of Systems Cardiovascular: Reports: edema. All systems rev neg: except as noted Objective General VS/I O: Vital Signs: Date Time Temp Pulse Resp B/P B/P Pulse O2 O2 Flow FiO2 Mean Ox Delivery Rate 04/19 1215 92 High flow 15 nasal cannula 04/19 1209 36.7 60 24 124/61 82.2 92 High flow 15 nasal cannula 04/19 0752 37.0 66 16 116/61 79 98 High flow 15 nasal cannula 04/19 0417 36.7 64 14 122/68 86.2 90 Nasal cannula 04/19 0149 High flow 15 nasal cannula 04/19 0102 37.0 60 14 144/69 0.0 93 Nasal cannula 04/19 0101 60 31 144/69 99 88 04/19 0002 59 34 135/69 98 89 04/19 0000 37.2 04/18 2300 60 10 142/73 100 96 04/18 2215 59 3 138/72 90 85 04/18 2100 59 14 159/85 116 89 04/18 2015 60 27 159/87 115 78 04/18 2002 100 High flow 13 nasal cannula 04/18 2000 36.8 071999 High flow 15 nasal cannula 04/18 1916 59 106/58 75 92 04/18 1737 60 133/64 92 92 04/18 1650 95 High flow 15 nasal cannula 04/18 1603 61 118/63 82 97 04/18 1600 37.0 High flow 15 nasal cannula 04/18 1500 60 22 122/62 87 97 24 hour I O ending at 0700: 04/19 0700 04/18 1900 Intake Total Output Total 600 Balance -600 Number 0 Bowel Movements Number Voids 2 Output, Stool 0 Output, Urine 600 Patient 118.6 kg Weight Weight Standing scale Measurement Method PATIENT WEIGHT: Weight (lb): 261 Weight (oz): 7.49 Weight (kg): 118.600 Medications: Active Meds + DC'd Last 24 Hrs Dextrose/Water (DEXTROSE 10% IN WATER) 125 ML ASDIR PRN IV (CKD) Dextrose/Water (DEXTROSE 10% IN WATER) 250 ML ASDIR PRN IV (CKD) Glucagon (GLUCAGON) 1 MG ASDIR PRN IM Albuterol Sulfate (ALBUTEROL SULFATE) 2.5 MG RTQ4H PRN PRN NEB Glipizide (GLUCOTROL) 10 MG BID PO Insulin Human Lispro (HUMALOG) 0 AC HS SUBQ Aspirin (ASPIRIN) 81 MG DAILY PO Clopidogrel Bisulfate (Plavix) 75 MG DAILY PO Furosemide (LASIX 40 mg/4 mL INJECTION) 40 MG DAILY IV Potassium Chloride (POTASSIUM CHLORIDE 20MEQ TAB.ER) 20 MEQ DAILY PO Atorvastatin Calcium (LIPITOR) 80 MG BEDTIME PO Lisinopril (lisinopriL) 5 MG Q12HR PO Acetaminophen/Codeine Phosphate (TYLENOL W CODEINE NO.3) 1 TAB Q4H PRN PRN PO Metoprolol Tartrate (LOPRESSOR) 25 MG Q12H PO Physical Exam General appearance: alert Head/Eyes: atraumatic, clear cornea, EOMI, normal conjunctiva/sclera, normal eyelids/periorb., normocephalic, PERRL ENT: normal dentition, normal ear left, normal ear right, normal nose, normal pharynx, normal sinus Neck: full range of motion, non-tender, normal thyroid, supple/no meningismus, no bruit/NL carotids, no JVD, no masses or swelling Cardiovascular: normal capillary refill, regular rate rhythm Respiratory: on oxygen (NRB), aerating well Abdomen: non-tender, normal bowel sounds, soft, no distention, no guarding, no hernia, no mass/organomegaly, no rebound Extremities: edema, moves all, normal capillary refill, normal range of motion Musculoskeletal: normal inspection Neuro/HAND STONER: alert, oriented X 3 Skin: dry, intact Psychiatry: normal affect, normal judgment/insight, normal mood, not homicidal, not suicidal, no hallucinations Results Findings/Data: Laboratory Tests 04/19 04/19 04/19 04/19 04/18 1108 0853 0852 0659 2118 Chemistry Sodium (134 - 147 mEq/L) 137 Potassium (3.4 - 5.0 mEq/L) 4.6 Chloride (100 - 108 mEq/L) 99 L Carbon Dioxide (21 - 33 mEq/l) 36 H Anion Gap (0 - 20) 7 BUN (7 - 18 mg/dL) 14 Creatinine (0.6 - 1.3 mg/dL) 1.4 H Glomerular Filtr Rate (70 - 80) 54.1 L Glucose (70 - 110 mg/dL) 172 H POC Glucose (70 - 110 MG/DL) 188 H 225 H 285 H Hemoglobin A1c (4.8 - 6.0 %A1C) 10.5 H Calcium (8.0 - 10.5 mg/dL) 8.6 Triglycerides (40 - 150 mg/dL) 91 Cholesterol (<200 mg/dL) 93 LDL Cholesterol Measurd (0 - 100 mg/dL) 50.0 HDL Cholesterol (40 - 60 MG/DL) 30.9 L Cholesterol/HDL Ratio (3.43 - 4.97 RATIO) 3.01 L 04/18 1613 Chemistry POC Glucose (70 - 110 MG/DL) 290 H Diagnosis, Assessment Plan Free Text DxA P Notes Free text DxA P notes: Impression: 72 yo male admitted w Acute on chronic systolic HF 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 Cardiology consult on case, echo noted with EF 35-39%. Hyperglycemic, change regular diet to ADA. Start medium dose sliding scale. He takes Novolog BID at home. Continue accuchecks. Labs AM, BMP, lipid, A1C. Cardiac monitoring. 04/19- he improve . no cp no sob -- lasix iv -- FS --under control on glyburite -- DM--poor control at 1428 RPT #[id number] END OF REPORT [facility] 2023-04-19 11:33:00 [facility] ([facility]) Cardiology Progress Note REPORT#:[id number] REPORT STATUS: Signed DATE:04/19/23 TIME: 1133 PATIENT: WILLI MERRITT UNIT #: [id number] ROOM/BED: [place] [address] : 52 AGE: 72 SEX: M ATTEND: Marcela Samuel MD ADM AUTHOR: Jacqui Mcfadden * ALL edits or amendments must be made on the electronic/computer document * Subjective Chief complaint: Denies any chest pain. Breathing is slightly better. Objective General VS/I O: 24 hour I O ending at 0700: 04/19 0700 04/18 1900 Intake Total Output Total 600 Balance -600 Number 0 Bowel Movements Number Voids 2 Output, Stool 0 Output, Urine 600 Patient 118.6 kg Weight Weight Standing scale Measurement Method Vital Signs: Date Time Temp Pulse Resp B/P B/P Pulse O2 O2 Flow FiO2 Mean Ox Delivery Rate 04/19 0752 98.6 66 16 116/61 79 98 High flow 15 nasal cannula 04/19 0417 98.1 64 14 122/68 86.2 90 Nasal cannula 04/19 0149 High flow 15 nasal cannula 04/19 0102 98.6 60 14 144/69 0.0 93 Nasal cannula 04/19 0101 60 31 144/69 99 88 04/19 0002 59 34 135/69 98 89 04/19 0000 98.9 04/18 2300 60 10 142/73 100 96 04/18 2215 59 3 138/72 90 85 04/18 2100 59 14 159/85 116 89 04/18 2015 60 27 159/87 115 78 / 2002 100 High flow 13 nasal cannula 04/18 2000 98.2 04/18 2000 High flow 15 nasal cannula 04/18 1916 59 106/58 75 92 04/18 1737 60 133/64 92 92 04/18 1650 95 High flow 15 nasal cannula 04/18 1603 61 118/63 82 97 04/18 1600 98.6 High flow 15 nasal cannula 04/18 1500 60 22 122/62 87 97 04/18 1400 63 31 125/71 92 94 04/18 1300 61 27 125/60 86 98 04/18 1226 64 33 109/65 81 83 04/18 1201 65 33 143/64 89 95 04/18 1200 98.4 High flow 15 nasal cannula PATIENT WEIGHT: Weight (lb): 261 Weight (oz): 7.49 Weight (kg): 118.600 Medications: Active Meds + DC'd Last 24 Hrs Albuterol Sulfate (ALBUTEROL SULFATE) 2.5 MG RTQ4H PRN PRN NEB Glipizide (GLUCOTROL) 10 MG BID PO Insulin Human Lispro (HUMALOG) 0 AC HS SUBQ Aspirin (ASPIRIN) 81 MG DAILY PO Clopidogrel Bisulfate (Plavix) 75 MG DAILY PO Furosemide (LASIX 40 mg/4 mL INJECTION) 40 MG DAILY IV Potassium Chloride (POTASSIUM CHLORIDE 20MEQ TAB.ER) 20 MEQ DAILY PO Atorvastatin Calcium (LIPITOR) 80 MG BEDTIME PO Lisinopril (lisinopriL) 5 MG Q12HR PO Acetaminophen/Codeine Phosphate (TYLENOL W CODEINE NO.3) 1 TAB Q4H PRN PRN PO Metoprolol Tartrate (LOPRESSOR) 25 MG Q12H PO Physical Exam General appearance: no acute distress Head/Eyes: atraumatic ENT: moist mucosal membranes Neck: no JVD Cardiovascular: CV assessment: regular rate and rhythm Respiratory: crackles, decreased breath sounds Abdomen: soft, non-tender Lower extremity: LE assessment: edema Review of Systems All systems rev neg: except as marked Diagnosis, Assessment Plan Hospital course to date: TTE showed: 1. Left ventricle: The cavity size is moderately dilated. Wall thickness is normal. Systolic function is moderately reduced. The estimated ejection fraction is 35-39%. Left ventricular diastolic function parameters are indeterminate. 2. Right ventricle: TAPSE is 1.6 cm. Systolic function is low normal. 3. Mitral valve: There is mild regurgitation. 4. Pericardium, extracardiac: There is no pericardial effusion. ASSESSMENT AND PLAN: 1. 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 2. Dyspnea: Last echocardiogram done in 2021 showed ejection fraction of 35-40%, so the patient has [id number] systolic heart failure. Plan is to continue IV diuretics. Discussed the importance of compliance with medications/ follow up as well as fluid salt restriction. 3. Coronary artery disease, currently asymptomatic. MA ruled out. Plan: We will continue aspirin, Plavix and statins. 4. Hypertension. Continue metoprolol and lisinopril. 5. Dyslipidemia. Continue statins. OK to transfer to telemetry. POC discussed with Dr. Martínez at 1134 at 1014 RPT #:[id number] END OF REPORT [facility] 2023-04-18 13:09:00 [facility] Cardiology Progress Note REPORT#:[id number] REPORT STATUS: Signed DATE:04/18/23 TIME: 1309 PATIENT: WILLI MERRITT UNIT #: [id number] ROOM/BED: [place] [address] : 52 AGE: 72 SEX: M ATTEND: Marcela Samuel MD ADM AUTHOR: Elizabeth David MD * ALL edits or amendments must be made on the electronic/computer document * Subjective Chief complaint: Denies any chest pain. Breathing is slightly better. Objective General VS/I O: 24 hour I O ending at 0700: 04/18 0700 04/17 1900 Intake Total 400 Output Total 550 Balance -150 Intake, Oral 400 Number 1 Bowel Movements Output, Urine 550 Vital Signs: Date Time Temp Pulse Resp B/P B/P Pulse O2 O2 Flow FiO2 Mean Ox Delivery Rate 04/18 800 High flow 15 nasal cannula 04/18 07 60 26 123/60 85 93 04/18 0600 60 24 125/62 88 91 04/18 0500 60 27 127/67 90 97 04/18 0442 60 29 117/65 84 04/18 0409 97.8 04/18 0326 80 Room air 04/18 0300 60 27 100/58 75 98 04/18 0210 62 27 105/75 86 92 04/18 0203 62 24 90/44 57 99 07/09 0107 60 27 92/50 68 100 07/09 0047 75 95 50 07/09 0047 95 BiPAP 50 07/09 0015 97.8 07/09 0000 69 25 125/62 89 100 07/08 2301 69 121/82 94 100 07/08 2300 High flow 15 nasal cannula 04/17 2200 117/56 81 100 07/08 2145 97.9 /08 2145 Non 15 rebreather mask 04/17 2137 68 121/58 83 100 07/08 2100 73 32 166/91 113 95 /08 1956 100 Non rebreather mask 04/17 1900 73 19 158/74 106 07/08 1802 75 120/81 97 95 07/08 1757 72 76 07/08 1750 143/73 100 87 07/08 1506 Nasal 4 cannula PATIENT WEIGHT: Weight (lb): Weight (oz): Weight (kg): 109.091 Medications: Active Meds + DC'd Last 24 Hrs Glipizide (GLUCOTROL) 10 MG BID PO Insulin Human Lispro (HUMALOG) 0 AC HS SUBQ Aspirin (ASPIRIN) 81 MG DAILY PO Clopidogrel Bisulfate (Plavix) 75 MG DAILY PO Furosemide (LASIX 40 mg/4 mL INJECTION) 40 MG DAILY IV Potassium Chloride (POTASSIUM CHLORIDE 20MEQ TAB.ER) 20 MEQ DAILY PO Atorvastatin Calcium (LIPITOR) 80 MG BEDTIME PO Lisinopril (lisinopriL) 5 MG Q12HR PO Acetaminophen/Codeine Phosphate (TYLENOL W CODEINE NO.3) 1 TAB Q4H PRN PRN PO Metoprolol Tartrate (LOPRESSOR) 25 MG Q12H PO Physical Exam General appearance: alert, awake Head/Eyes: atraumatic ENT: moist mucosal membranes Neck: no JVD Cardiovascular: CV assessment: regular rate and rhythm Respiratory: crackles, decreased breath sounds Abdomen: soft, non-tender Lower extremity: LE assessment: edema Results Findings/Data: Laboratory Tests 04/18 04/18 04/18 1126 0444 0444 Chemistry Sodium (134 - 147 mEq/L) 138 Potassium (3.4 - 5.0 mEq/L) 4.3 Chloride (100 - 108 mEq/L) 100 Carbon Dioxide (21 - 33 mEq/l) 36 H Anion Gap (0 - 20) 7 BUN (7 - 18 mg/dL) 9 Creatinine (0.6 - 1.3 mg/dL) 1.2 Glomerular Filtr Rate (70 - 80) 65.1 L Glucose (70 - 110 mg/dL) 285 H POC Glucose (70 - 110 MG/DL) 258 H Calcium (8.0 - 10.5 mg/dL) 8.1 Troponin I High Sens (0 - 54 ng/L) 9 Laboratory Tests 04/18 0444 Hematology WBC (4.5 - 11.0 x10 3/uL) 7.1 RBC (4.00 - 5.60 x10 6/uL) 4.11 Hgb (12.5 - 16.9 g/dL) 12.4 L Hct (37.5 - 50.7 %) 42.6 MCV (81.0 - 99.0 fL) 103.6 H MCH (27.0 - 33.0 pg) 30.2 MCHC (33.0 - 37.0 g/dL) 29.1 L RDW (11.5 - 14.5 %) 15.3 H Plt Count (150 - 400 x10 3/uL) 206 MPV (7.0 - 9.0 fL) 11.8 H Neut % (Auto) (56.0 - 77.0 %) 73.1 Lymph % (Auto) (14.0 - 32.0 %) 12.3 L [place] % (Auto) (4.8 - 9.0 %) 12.3 H Eos % (Auto) (0.3 - 3.7 %) 1.7 Baso % (Auto) (0.0 - 2.0 %) 0.3 Neut # (Auto) (2.0 - 7.6 x10 3/uL) 5.19 Lymph # (Auto) (1.0 - 3.8 x10 3/uL) 0.87 L [place] # (Auto) (0.1 - 0.8 x10 3/uL) 0.87 H Eos # (Auto) (0.0 - 0.2 x10 3/uL) 0.12 Baso # (Auto) (0.0 - 0.2 x10 3/uL) 0.02 Abs Immat Gran (auto) (0.00 - 0.03 x10 3/uL) 0.02 Add Manual Diff NO Immature Gran % (0.0 - 2.0 %) 0.3 Nucleated RBC % (0 - 0 %) 0.0 Nucleated RBCs # (Man) (0.0 - 0.1 x10 3/uL) 0.00 Diagnosis, Assessment Plan Hospital course to date: TTE showed: 1. Left ventricle: The cavity size is moderately dilated. Wall thickness is normal. Systolic function is moderately reduced. The estimated ejection fraction is 35-39%. Left ventricular diastolic function parameters are indeterminate. 2. Right ventricle: TAPSE is 1.6 cm. Systolic function is low normal. 3. Mitral valve: There is mild regurgitation. 4. Pericardium, extracardiac: There is no pericardial effusion. ASSESSMENT AND PLAN: 1. 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 2. Dyspnea: Last echocardiogram done in 2021 showed ejection fraction of 35-40%, so the patient has vxquu-ix-nldcupx systolic heart failure. Plan is to continue IV diuretics. Discussed the importance of compliance with medications/ follow up as well as fluid salt restriction. 3. Coronary artery disease, currently asymptomatic. MA ruled out. Plan: We will continue aspirin, Plavix and statins. 4. Hypertension. Continue metoprolol and lisinopril. 5. Dyslipidemia. Continue statins. OK to transfer to telemetry. at 1312 RPT #:[id number] END OF REPORT [facility] 2023-04-18 11:50:00 [facility] Hospitalist Progress Note REPORT#:[id number] REPORT STATUS: Signed DATE:04/18/23 TIME: 1150 PATIENT: WILLI MERRITT UNIT #: [id number] ROOM/BED: [place] [id number] : 52 AGE: 72 SEX: M ATTEND: Marcela Samuel MD ADM AUTHOR: Prerna Lentz APRN * ALL edits or amendments must be made on the electronic/computer document * Subjective Chief complaint: SOB better, reports swelling Up on side of bed eating Nurse reports elevated glucose HPI: 72-year-old male with a history of diabetes, hypertension, CAD status post stents presents to the emergency department as a transfer for CHF/heart failure. Patient states he began having shortness of breath and bilateral lower extremity swelling 2 days ago and his symptoms progressed. At the outside facility he was started on BiPAP and given 40 mg of IV Lasix. Patient also endorsed some chest pain which has now resolved. Denies fever, chills, abdominal pain, nausea, vomiting, diarrhea, constipation, melena, hematochezia. Review of Systems Constitutional: Denies: chills, fever. Respiratory: Reports: SOB. Denies: productive cough (sputum), wheezing. Cardiovascular: Reports: edema. Denies: chest pain, palpitations. GI: Denies: abdominal pain, nausea, vomiting. Neuro: Denies: dizziness, syncope. All systems rev neg: except as noted Objective General VS/I O: Vital Signs: Date Time Temp Pulse Resp B/P B/P Pulse O2 O2 Flow FiO2 Mean Ox Delivery Rate 04/18 0800 High flow 15 nasal cannula 04/18 0700 60 26 123/60 85 93 07/ 0600 60 24 125/62 88 91 07/09 0500 60 27 127/67 90 97 07/09 0442 60 29 117/65 84 07/09 0409 36.6 07/09 0326 80 Room air 07/ 0300 60 27 100/58 75 98 07/09 0210 62 27 105/75 86 92 07/09 0203 62 24 90/44 57 99 07/09 0107 60 27 92/50 68 100 07/09 0047 75 95 50 07/09 0047 95 BiPAP 50 07/09 0015 36.6 07/09 0000 69 25 125/62 89 100 07/08 2301 69 121/82 94 100 07/08 2300 High flow 15 nasal cannula /08 2200 117/56 81 100 07/08 2145 36.6 07/08 2145 Non 15 rebreather mask / 2137 68 121/58 83 100 07/08 2100 73 32 166/91 113 95 07/08 1956 100 Non rebreather mask /08 1900 73 19 158/74 106 07/08 1802 75 120/81 97 95 07/08 1757 72 76 07/08 1750 143/73 100 87 07/08 1506 Nasal 4 cannula 24 hour I O ending at 0700: 04/18 0700 04/17 1900 Intake Total 400 Output Total 550 Balance -150 Intake, Oral 400 Number 1 Bowel Movements Output, Urine 550 PATIENT WEIGHT: Weight (lb): Weight (oz): Weight (kg): 109.091 Medications: Active Meds + DC'd Last 24 Hrs Aspirin (ASPIRIN) 81 MG DAILY PO Clopidogrel Bisulfate (Plavix) 75 MG DAILY PO Furosemide (LASIX 40 mg/4 mL INJECTION) 40 MG DAILY IV Potassium Chloride (POTASSIUM CHLORIDE 20MEQ TAB.ER) 20 MEQ DAILY PO Atorvastatin Calcium (LIPITOR) 80 MG BEDTIME PO Lisinopril (lisinopriL) 5 MG Q12HR PO Acetaminophen/Codeine Phosphate (TYLENOL W CODEINE NO.3) 1 TAB Q4H PRN PRN PO Metoprolol Tartrate (LOPRESSOR) 25 MG Q12H PO Physical Exam General appearance: alert, awake, oriented Head/Eyes: atraumatic, clear cornea, EOMI, normal conjunctiva/sclera, normal eyelids/periorb., normocephalic, PERRL ENT: normal dentition, normal ear left, normal ear right, normal nose, normal pharynx, normal sinus Neck: full range of motion, non-tender, normal thyroid, supple/no meningismus, no bruit/NL carotids, no JVD, no masses or swelling Cardiovascular: normal capillary refill, regular rate rhythm Respiratory: on oxygen (NRB), aerating well Abdomen: non-tender, normal bowel sounds, soft, no distention, no guarding, no hernia, no mass/organomegaly, no rebound Extremities: moves all, normal capillary refill, normal range of motion, no edema Musculoskeletal: normal inspection Neuro/HAND STONER: alert, oriented X 3 Skin: dry, intact Psychiatry: normal affect, normal judgment/insight, normal mood, not homicidal, not suicidal, no hallucinations Results Findings/Data: Laboratory Tests 04/18 04/18 04/18 1126 0444 0444 Chemistry Sodium (134 - 147 mEq/L) 138 Potassium (3.4 - 5.0 mEq/L) 4.3 Chloride (100 - 108 mEq/L) 100 Carbon Dioxide (21 - 33 mEq/l) 36 H Anion Gap (0 - 20) 7 BUN (7 - 18 mg/dL) 9 Creatinine (0.6 - 1.3 mg/dL) 1.2 Glomerular Filtr Rate (70 - 80) 65.1 L Glucose (70 - 110 mg/dL) 285 H POC Glucose (70 - 110 MG/DL) 258 H Calcium (8.0 - 10.5 mg/dL) 8.1 Troponin I High Sens (0 - 54 ng/L) 9 Laboratory Tests 04/18 0444 Hematology WBC (4.5 - 11.0 x10 3/uL) 7.1 RBC (4.00 - 5.60 x10 6/uL) 4.11 Hgb (12.5 - 16.9 g/dL) 12.4 L Hct (37.5 - 50.7 %) 42.6 MCV (81.0 - 99.0 fL) 103.6 H MCH (27.0 - 33.0 pg) 30.2 MCHC (33.0 - 37.0 g/dL) 29.1 L RDW (11.5 - 14.5 %) 15.3 H Plt Count (150 - 400 x10 3/uL) 206 MPV (7.0 - 9.0 fL) 11.8 H Neut % (Auto) (56.0 - 77.0 %) 73.1 Lymph % (Auto) (14.0 - 32.0 %) 12.3 L Florence % (Auto) (4.8 - 9.0 %) 12.3 H Eos % (Auto) (0.3 - 3.7 %) 1.7 Baso % (Auto) (0.0 - 2.0 %) 0.3 Neut # (Auto) (2.0 - 7.6 x10 3/uL) 5.19 Lymph # (Auto) (1.0 - 3.8 x10 3/uL) 0.87 L Florence # (Auto) (0.1 - 0.8 x10 3/uL) 0.87 H Eos # (Auto) (0.0 - 0.2 x10 3/uL) 0.12 Baso # (Auto) (0.0 - 0.2 x10 3/uL) 0.02 Abs Immat Gran (auto) (0.00 - 0.03 x10 3/uL) 0.02 Add Manual Diff NO Immature Gran % (0.0 - 2.0 %) 0.3 Nucleated RBC % (0 - 0 %) 0.0 Nucleated RBCs # (Man) (0.0 - 0.1 x10 3/uL) 0.00 Diagnosis, Assessment Plan Plan discussed with: patient, nurse Free Text DxA P Notes Free text DxA P notes: Impression: 72 yo male admitted w Acute on chronic systolic HF 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 Cardiology consult on case, echo noted with EF 35-39%. Hyperglycemic, change regular diet to ADA. Start medium dose sliding scale. He takes Novolog BID at home. Continue accuchecks. Labs AM, BMP, lipid, A1C. Cardiac monitoring. at 1636 at 1042 RPT #:[id number] END OF REPORT [facility] 2023-04-18 08:48:00 [id number] [place] [address] PATIENT NAME: WILLI MERRITT ADMIT DATE: 04/17/23 ACCOUNT NO: [id number] ROOM NO: [facility] AGE: 72 REPORT TYPE: eECHOCARDIOGRAM REPORT SEX: M ADMITTING PHYSICIAN:Marcela Samuel MD ATTENDING PHYSICIAN:Marcela Samuel MD *[place] [address] Transthoracic Echocardiogram Patient: Willi Merritt Study Date: 04/17/2023 BP: 120 / 58 Location: [facility] URN: [id number] : 1950 Age: 72 Height: 70 in / 177.8 cm Gender: M Weight: 239.5 lb / 108.9 kg BMI/BSA: 34.4 kg/m 2 / 2.26 m 2 *Ordering Physician: * Elizabeth David MD *Interpreting Physician: * Elizabeth David MD *Dining Room Server: * Patricia RosannaBECKY Indications: CHF, DYSPNEA. Study data: Transthoracic echocardiogram. Procedure: Transthoracic echocardiography was performed. Images were obtained using a iSOCO cardiac ultrasound machine. Image quality was good. Complete 2D, complete spectral Doppler, and color Doppler. Location: Emergency department. Patient status: Inpatient. Patient room number: 9. Study status: Routine. Findings Left ventricle: The cavity size is moderately dilated. Wall thickness is normal. Systolic function is moderately reduced. The estimated ejection fraction is 35-39%. Left ventricular diastolic function parameters are indeterminate. PATIENT NAME: WILLI MERRITT Right ventricle: TAPSE is 1.6 cm. The cavity size is normal. Pacer wire noted in the right ventricle. Systolic function is low normal. Left atrium: The atrium is normal in size. Right atrium: The atrium is normal in size. Pacer wire noted in right atrium. Aorta: Aortic root: The aortic root is normal in size. Aortic valve: There is no evidence of stenosis. There is no regurgitation. Mitral valve: The valve is structurally normal. There is no evidence of stenosis. There is mild regurgitation. Tricuspid valve: The valve is structurally normal. There is mild regurgitation. Pulmonic valve: Not well visualized. Pericardium: There is no pericardial effusion. Systemic veins: Inferior vena cava: The vessel is dilated. The respirophasic diameter changes are in the normal range (= 50%). Measurements Left ventricle Value 10/31/2021 Ref OLMAN, LAX 6.4 cm 5.9 4.2 - 5.8 ESD, LAX 4.1 cm 4.6 2.5 - 4.0 ESD/bsa, 1.8 cm/m 2 2.0 1.3 LAX - 2.1 FS, LAX 37 % 22 25 - 43 ESD/bsa 4.5 cm/m 2 2.5 ---- major ax, A4C OLMAN/bsa 4.5 cm/m 2 2.5 ---- minor ax, A4C OLMAN major 10.2 cm 7.5 ---- ax, A2C ESD major 9.4 cm ---- ax, A2C OLMAN/bsa 4.5 cm/m 2 3.3 ---- major ax, A2C ESD/bsa 4.2 cm/m 2 ---- major ax, A2C PW, ED 0.9 cm 1.5 0.6 - 1.0 IVS/PW, ED 1.18 0.99 ---- EF 35 % 44 52 - PATIENT NAME: WILLI MERRITT 74 E', lat 7.5 cm/sec 5.1 >=10 luzma, TDI .0 E/e', lat 12 ---- luzma, TDI E', med 7.7 cm/sec 4.6 >=7. luzma, TDI 0 E/e', med 11 14 ---- luzma, TDI E', avg, 7.6 cm/sec 4.9 ---- TDI E/e', avg, 13 <=14 TDI LVOT Value 10/31/2021 Ref Diam, S 2.06 cm 2.08 ---- Area 3.3 cm 2 3.4 ---- Peak radha, S 0.86 m/sec 0.68 ---- Mean radha, S 0.61 m/sec 0.49 ---- VTI, S 17.4 cm 13.3 ---- Peak grad, 3 mm Hg 2 ---- S Mean grad, 2 mm Hg 1 ---- S SV 58 ml 44 ---- Qs 12.14 L/min ---- Qs/bsa 5.4 L/(min-m 2) ---- SV/bsa 26 ml/m 2 19 ---- Ventricular septum Value 10/31/2021 Ref IVS, ED 1.1 cm 1.5 0.6 - 1.0 Right ventricle Value 10/31/2021 Ref TAPSE, MM 1.6 cm 1.7 - 3.1 Pressure, S 29 mm Hg 50 ---- Left atrium Value 10/31/2021 Ref AP dim, ES 4.16 cm 3.00 - 4.00 Vol/bsa, 20 ml/m 2 12 - ES, 1-p A4C 37 Vol, ES, 59 ml ---- 2-p Vol/bsa, 26 ml/m 2 16 - ES, 2-p 34 Vol/bsa, 22 ml/m 2 16 - ES, A/L 34 Right atrium Value 10/31/2021 Ref PATIENT NAME: WILLI MERRITT Area, ES 22 cm 2 10 - 18 SI dim, ES, 6.4 cm 3.4 A4C - 5.3 SI dim/bsa, 2.9 cm/m 2 1.8 ES, A4C - 3.0 Vol, ES, 63 ml ---- A/L Vol, ES, 61 ml ---- 1-p A4C Vol/bsa, 27 ml/m 2 11 - ES, 1-p A4C 39 Aortic valve Value 10/31/2021 Ref Peak v, S 1.58 m/sec 0.95 ---- Mean v, S 1.11 m/sec 0.7 ---- VTI, S 30.9 cm 16.2 ---- Mean grad, 5.4 mm Hg 2.2 ---- S Peak grad, 8.9 mm Hg 3.6 ---- S LVOT/AV, 0.56 0.82 ---- VTI ratio JANAK, VTI 1.88 cm 2 2.79 ---- LVOT/AV, 0.54 0.71 ---- Vpeak ratio JANAK, Vmax 1.82 cm 2 2.44 ---- Mitral valve Value 10/31/2021 Ref Peak E 0.08 m/sec 0.62 ---- Peak A 0.8 m/sec 0.54 ---- Mean v, D 0.62 m/sec ---- VTI leaflet 33.0 cm ---- coapt Decel time 209 ms 297 ---- PHT 77 ms 81 ---- Mean grad, 1.7 mm Hg ---- D Peak grad, 2.7 mm Hg ---- D Peak E/A 1.03 1.15 ---- ratio MVA, PHT 2.9 cm 2 2.7 ---- Pulmonic valve Value 10/31/2021 Ref AK v, ED 2.09 m/sec ---- AK grad, ED 17 mm Hg ---- Tricuspid valve Value 10/31/2021 Ref TR peak v 2.29 m/sec 3.15 <=2. 8 Peak RV-RA 21 mm Hg 40 ---- PATIENT NAME: WILLI MERRITT [place] Pulmonary artery Value 10/31/2021 Ref Pressure, S 28.9 mm Hg ---- Systemic veins Value 10/31/2021 Ref Estimated 8 mm Hg 10 ---- CVP Conclusions Summary: 1. Left ventricle: The cavity size is moderately dilated. Wall thickness is normal. Systolic function is moderately reduced. The estimated ejection fraction is 35-39%. Left ventricular diastolic function parameters are indeterminate. 2. Right ventricle: TAPSE is 1.6 cm. Systolic function is low normal. 3. Mitral valve: There is mild regurgitation. 4. Pericardium, extracardiac: There is no pericardial effusion. Prepared and electronically signed by Elizabeth David MD 04/18/2023 08:48 at 0848 PATIENT NAME: WILLI MERRITT [facility] 2023-04-17 18:00:00 [id number] [place] [address] PATIENT NAME: WILLI MERRITT ADMIT DATE: 04/17/23 ACCOUNT NO: [id number] ROOM NO: [id number] AGE: 72 REPORT TYPE: CONSULTATION REPORT SEX: M ADMITTING PHYSICIAN:Marcela Samuel MD ATTENDING PHYSICIAN:Marcela Samuel MD CONSULTATION DATE: 04/17/2023 CARDIOLOGY CONSULT REASON FOR CONSULTATION: Shortness of breath. HISTORY OF PRESENT ILLNESS: The patient is a 72-year-old male patient with past medical history of coronary artery disease, CHF, hypertension, dyslipidemia, and diabetes mellitus comes with shortness of breath. The patient states he lives around [facility]. Then he went to the emergency room there and was transferred here. He normally follows with a outside sales associate in [facility]. Unsure if he has followed up recently and may not be even compliant with medication as he requests all his medications to be given at the time of discharge. PAST MEDICAL HISTORY: 1. Coronary artery disease. Cardiac catheterization done on 11/26/2021 showed he had a BULK SEALER of the mid circumflex artery, which was intervened on 11/26/2021. He also had severe LAD stenosis, which was treated with PTCA and stent on 12/24/2021. 2. Hypertension. 3. Diabetes mellitus. 4. Dyslipidemia. MEDICATIONS: Reviewed from the MAR. Cardiac medications are aspirin 81 mg daily, atorvastatin 80 mg daily, Plavix 75 mg daily, metoprolol tartrate 25 mg q. 12 hours, lisinopril 5 mg q. 12 hours. ALLERGIES: NO KNOWN DRUG ALLERGIES. SOCIAL HISTORY: No history of smoking, alcohol abuse or drug abuse. FAMILY HISTORY: Nothing contributory to current illness. REVIEW OF SYSTEMS: A 14-point review of systems was performed, negative except what is mentioned above. PHYSICAL EXAMINATION: VITAL SIGNS: Temperature 98.9, pulse 83, respiration 32, and blood pressure 120/58. GENERAL: The patient is an adult male patient, in no acute distress. EYES: No pallor. No icterus. ENT: Oral mucosa moist. NECK: No obvious JVD appreciated due to body habitus. PATIENT NAME: WILLI MERRITT CARDIOVASCULAR SYSTEM: S1, S2, regular. RESPIRATORY: Bilateral air entry fair. Few basal crepitations heard. ABDOMEN: Soft, nontender. EXTREMITIES: Pitting pedal edema bilaterally. NEUROLOGIC: Appears to be grossly intact. SKIN: No rashes. HEAD: Atraumatic. LABORATORY DATA: White count 6.7, hemoglobin 12.5, hematocrit 42.2, and platelets 189. Sodium 144, potassium 3.3, chloride 106, bicarbonate 33, BUN 12, creatinine 1.2, blood sugar is 199. Troponin x1 negative. ASSESSMENT AND PLAN: 1. 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 2. Shortness of breath. Last echocardiogram done in 2021 showed ejection fraction of 35-40%, so the patient has pmjqm-mu-vkbrjzi systolic heart failure. Plan is to continue IV diuretics. We will follow echocardiogram. 3. Coronary artery disease, currently asymptomatic. We will rule out myocardial infarction with second troponin. We will continue aspirin, Plavix and statins. 4. Hypertension. Continue metoprolol and lisinopril. 5. Dyslipidemia. Continue statins. Thank you very much for the consult. We will follow with you. Dictated By: Elizabeth David MD Date Dictated: 04/17/2023 18:00:39 Date Transcribed: 04/17/2023 20:17:58 KD/TAL Receipt ID: [id number] Authenticated by Elizabeth David On 05/03/2023 09:18:02 AM at 0918 PATIENT NAME: WILLI MERRITT [facility] 2023-04-17 12:18:00 [facility] Hospitalist History Physical REPORT#:[id number] REPORT STATUS: Signed DATE:04/17/23 TIME: 1218 PATIENT: WILLI MERRITT UNIT #: [id number] ROOM/BED: [place] [address] : 52 AGE: 72 SEX: M ATTEND: Marcela Samuel MD ADM AUTHOR: Marcela Samuel MD * ALL edits or amendments must be made on the electronic/computer document * History of Present Illness HPI Chief complaint: SOB, CP HPI: 72-year-old male with a history of CHF, diabetes, hypertension, CAD status post stents presents to the emergency department as a transfer for CHF/heart failure. Patient states he began having shortness of breath and bilateral lower extremity swelling 2 days ago and his symptoms progressed. At the outside facility he was started on BiPAP and given 40 mg of IV Lasix. Patient also endorsed some chest pain which has now resolved. Denies fever, chills, abdominal pain, nausea, vomiting, diarrhea, constipation, melena, hematochezia. History Past medical history: Reports: Coronary artery disease, Diabetes mellitus, Hypertension, Dyslipidemia. Smoking status for patients 13 years old or older: Never Smoker Medication/Allergy-Vaccine Hx Medications: Home Medications: Medication Dose/Rte/Freq Days Qty Entered Last Max Daily Dose Reviewed INSULIN ASPART 16 UNITS SUBQ BID 10/31/21 (NovoLOG CARTRIDGE 1704 (15mL)) Strength: (Unknown Strength) CARTRIDGE IBUPROFEN (MOTRIN) 800 MG PO 11/24/21 Strength: 800 MG TAB Q8H PRN PRN PAIN 1021 glipiZIDE (GLUCOTROL) 10 MG PO BID 11/24/21 Strength: 10 MG TAB 1023 ACETAMINOPHEN/CODEINE 1 TAB PO 11/24/21 (TYLENOL WITH CODEINE Q4H PRN PRN ACUTE 1027 #3 300/30 MG) PAIN Strength: 300 MG-30 MG TAB TERAZOSIN (HYTRIN) 10 MG PO BEDTIME 11/24/21 Strength: 10 MG CAP 1028 FUROSEMIDE (LASIX) 80 MG PO DAILY 11/24/21 Strength: 80 MG TAB 1029 ALBUTEROL 1 PUFF INH BID 11/24/21 (VENTOLIN HFA 90 1142 MCG/ACT 18 GM) Strength: 90 MCG INHALER FUROSEMIDE (LASIX) 40 MG PO BEDTIME 12/23/21 Strength: 40 MG TAB 1123 METOPROLOL TARTRATE 25 MG PO Q12H 60 11/01/21 (LOPRESSOR) 0947 Strength: 50 MG TAB LISINOPRIL (ZESTRIL) 5 MG PO Q12HR 60 11/01/21 Strength: 5 MG TAB 0947 ATORVASTATIN (LIPITOR) 80 MG PO DAILY 30 11/01/21 Strength: 80 MG TAB 0949 AMIODARONE (PACERONE) 200 MG PO BID 60 11/01/21 Strength: 200 MG TAB 0950 ASPIRIN 81 MG PO DAILY 90 90 11/26/21 Strength: 81 MG TAB.CHEW 1008 CLOPIDOGREL (PLAVIX) 75 MG PO DAILY 90 90 12/24/21 Strength: 75 MG TAB 1341 Current Hospital Medications: Electrolytic, Caloric, And Sven Sig/Lala Start time Last Medication Dose Route Stop Time Status Admin Furosemide 40 MG X1ED STA 04/17 215 DC 04/17 (LASIX 40 mg/4 mL IV 04/17 INJECTION) Allergies: Coded Allergies: No Known Allergies (12/23/21) Review of Systems Respiratory: Reports: SOB. Cardiovascular: chest pain, UGALDE (dyspnea on exertion). All systems rev neg: except as marked Objective General VS/I O: Vital Signs: Date Time Temp Pulse Resp B/P B/P Pulse O2 O2 Flow FiO2 Mean Ox Delivery Rate 04/17 1000 83 32 91 07/08 0900 72 34 97 07/08 0810 68 24 100 07/08 0800 73 23 80 07/08 0721 BiPAP /08 0700 70 120/58 83 07/08 0645 69 23 07/08 0545 60 07/08 0540 64 97 40 07/08 0431 72 130/62 89 97 07/08 0345 67 100/56 76 96 07/08 0300 68 127/72 93 100 07/08 0230 67 119/66 87 98 07/08 0213 BiPAP /08 0210 69 97 40 /08 0210 97 BiPAP 40 /08 0203 98.9 70 20 121/68 85 97 Room air 24 hour I O ending at 0700: 04/17 0700 04/16 1900 Intake Total Output Total Balance Patient 109.091 kg Weight Weight Stated/Reported Measurement Method PATIENT WEIGHT: Weight (lb): Weight (oz): Weight (kg): 109.091 Medications: Active Meds + DC'd Last 24 Hrs Furosemide (LASIX 40 mg/4 mL INJECTION) 40 MG X1ED STA IV (DC) Physical Exam General appearance: obese, respiratory support, alert, awake Head/Eyes: atraumatic, clear cornea, EOMI, normal conjunctiva/sclera, normal eyelids/periorb., normocephalic, PERRL ENT: normal dentition, normal ear left, normal ear right, normal nose, normal pharynx, normal sinus Neck: full range of motion, non-tender, normal thyroid, supple/no meningismus, no bruit/NL carotids, no JVD, no masses or swelling Cardiovascular: normal capillary refill, regular rate rhythm Respiratory: on oxygen (NRB), aerating well Abdomen: non-tender, normal bowel sounds, soft, no distention, no guarding, no hernia, no mass/organomegaly, no rebound Extremities: edema, moves all, normal capillary refill, normal range of motion Musculoskeletal: normal inspection Neuro/HAND STONER: alert, oriented X 3 Skin: dry, intact Psychiatry: normal affect, normal judgment/insight, normal mood, not homicidal, not suicidal, no hallucinations Results Findings/Data: Laboratory Tests 04/17 Chemistry Troponin I High Sens (0 - 54 ng/L) 12 B-Natriuretic Peptide (0 - 100 PG/ML) 356.0 H Laboratory Tests 04/17 217 Hematology WBC (4.5 - 11.0 x10 3/uL) 6.7 RBC (4.00 - 5.60 x10 6/uL) 4.22 Hgb (12.5 - 16.9 g/dL) 12.5 Hct (37.5 - 50.7 %) 42.2 MCV (81.0 - 99.0 fL) 100.0 H MCH (27.0 - 33.0 pg) 29.6 MCHC (33.0 - 37.0 g/dL) 29.6 L RDW (11.5 - 14.5 %) 15.7 H Plt Count (150 - 400 x10 3/uL) 199 MPV (7.0 - 9.0 fL) 11.5 H Neut % (Auto) (56.0 - 77.0 %) 64.1 Lymph % (Auto) (14.0 - 32.0 %) 19.3 Florence % (Auto) (4.8 - 9.0 %) 14.1 H Eos % (Auto) (0.3 - 3.7 %) 1.6 Baso % (Auto) (0.0 - 2.0 %) 0.3 Neut # (Auto) (2.0 - 7.6 x10 3/uL) 4.30 Lymph # (Auto) (1.0 - 3.8 x10 3/uL) 1.30 Florence # (Auto) (0.1 - 0.8 x10 3/uL) 0.95 H Eos # (Auto) (0.0 - 0.2 x10 3/uL) 0.11 Baso # (Auto) (0.0 - 0.2 x10 3/uL) 0.02 Abs Immat Gran (auto) (0.00 - 0.03 x10 3/uL) 0.04 H Add Manual Diff NO Immature Gran % (0.0 - 2.0 %) 0.6 Nucleated RBC % (0 - 0 %) 0.3 H Nucleated RBCs # (Man) (0.0 - 0.1 x10 3/uL) 0.02 Radiology data: Recent Impressions: RADIOLOGY - XR CHEST 1 V 04/17 0214 Report Impression - Status: SIGNED Entered: 04/17/2023 0425 IMPRESSION: Constellation of findings are most suggestive of heart failure and qjzo-ih-rusdmxga volume overload. Concurrent pneumonia is difficult to exclude however Impression By: Garrick - Noah Meng M.D. Diagnosis, Assessment Plan Free Text DxA P Notes Free Text DxA P Notes: 72 yo male admitted w Acute on chronic systolic HF Uncontrolled DM 2 w other circulatory complications HTN heart disease w HF CAD SP Stents Lasix IV cardio consult Resume home meds Check Hg A1c, Lipid Tele FU lab at 1446 RPT #:[id number] END OF REPORT [facility] 2023-04-17 02:20:00 [facility] ([facility] EMERGENCY PROVIDER REPORT REPORT#:[id number] REPORT STATUS: Signed DATE:04/17/23 TIME: 219 PATIENT: WILLI MERRITT UNIT #: [id number] ROOM/BED: AGE: 72 SEX: M PCP PHYS: Undefined Provider SERVICE AUTHOR: Laury Carranza MD * ALL edits or amendments must be made on the electronic/computer document * HPI-Dyspnea/Wheezing General Initial Greet Date/Time 04/17/23 0203 Presentation Chief Complaint Shortness of breath Free Text HPI Notes Free Text HPI Notes 72-year-old male with a history of diabetes, hypertension, CAD status post stents presents to the emergency department as a transfer for CHF/heart failure. Patient states he began having shortness of breath and bilateral lower extremity swelling 2 days ago and his symptoms progressed. At the outside facility he was started on BiPAP and given 40 mg of IV Lasix. Patient also endorsed some chest pain which has now resolved. Denies fever, chills, abdominal pain, nausea, vomiting, diarrhea, constipation, melena, hematochezia. Risk-Dyspnea/Wheezing Risk Stratification Coronary Artery Disease Risk factors reviewed, Diabetes mellitus, Hypertension, Known CAD Review of Systems ROS Statements All systems rev neg except as marked. Focused Review of Systems Respiratory Reports: Shortness of breath. Cardiovascular Reports: Chest pain. Past Medical History - Adult Stated Complaint CHF, RESPIRATORY FAILURE Allergies Coded Allergies: No Known Allergies (12/23/21) Home Medications Active Scripts METOPROLOL TARTRATE (LOPRESSOR) 25 MG PO Q12H METOPROLOL TARTRATE (LOPRESSOR) 25 MG PO Q12H #60 TAB Prov: 11/01/21 LISINOPRIL (ZESTRIL) 5 MG PO Q12HR LISINOPRIL (ZESTRIL) 5 MG PO Q12HR #60 TAB Prov: 11/01/21 ATORVASTATIN (LIPITOR) 80 MG PO DAILY ATORVASTATIN (LIPITOR) 80 MG PO DAILY #30 TABS Prov: 11/01/21 AMIODARONE (PACERONE) 200 MG PO BID AMIODARONE (PACERONE) 200 MG PO BID #60 TABS Prov: 11/01/21 ASPIRIN 81 MG PO DAILY 90 Days #90 TABS Ref 3 Prov: 11/26/21 CLOPIDOGREL (PLAVIX) 75 MG PO DAILY 90 Days #90 TABS Ref 3 Prov: 12/24/21 Reported Medications INSULIN ASPART (NovoLOG CARTRIDGE (15mL)) 16 UNITS SUBQ BID IBUPROFEN (MOTRIN) 800 MG PO Q8H PRN PRN PAIN glipiZIDE (GLUCOTROL) 10 MG PO BID ACETAMINOPHEN/CODEINE (TYLENOL WITH CODEINE #3 300/30 MG) 1 TAB PO Q4H PRN PRN ACUTE PAIN TERAZOSIN (HYTRIN) 10 MG PO BEDTIME FUROSEMIDE (LASIX) 80 MG PO DAILY ALBUTEROL (VENTOLIN HFA 90 MCG/ACT 18 GM) 1 PUFF INH BID FUROSEMIDE (LASIX) 40 MG PO BEDTIME Calculated Suicide Risk (nurs) No risk Past Medical History: Reports: Coronary artery disease, Diabetes mellitus, Hypertension, Dyslipidemia. Smoking status for patients 13 years old or older: Never Smoker Physical Exam Vital Signs Vital Signs First Documented: Result Date Time Pulse Ox 97 / 0203 B/P 121/68 / 0203 B/P Mean 85 04/17 0203 O2 Delivery Room air 04/173 Temp 37.2 / 0203 Pulse 70 / 0203 Resp 20 04/17 0203 FiO2 40 / 0210 Last Documented: Result Date Time Pulse Ox 97 / 0431 B/P 130/62 04/17 0431 B/P Mean 89 04/17 431 Pulse 72 04/17 0431 O2 Delivery BiPAP 04/17 213 FiO2 40 04/17 210 Temp 37.2 04/17 203 Resp 20 04/17 203 Review of Vital Signs Reviewed, Vital signs normal Free Text PE Notes Free Text PE Notes General/Const Awake, Alert HENT Head atraumatic, normocephalic, ears/nose/throat airway patent, TMs clear bilaterally MS Neck Neck Supple, no swelling, no tenderness to palpation Resp/Chest CTAB, No respiratory distress, no rales, no rhonchi, no wheezing Cardiovascular Normal rate, regular rhythm, heart sounds. No rubs murmurs gallops Abdomen/GI Normal bowel sounds, soft, nontender, nondistended. No rebound or guarding MS noLower Ext/Pelvis/MS No swelling, Non-tender Skin 2+ pitting edema to bilateral lower extremities Neurologic Neurologic Oriented X3, Speech NL, no focal neuro deficits, CN 2-12 intact, 5 /5 strength, sensation intact Interpretation Diagnostics Lab Results Interpretation Results Laboratory Tests 04/17/23216: [Embedded Image Not Available] Laboratory Tests: 04/17 0217 Chemistry Troponin I High Sens (0 - 54 ng/L) 12 B-Natriuretic Peptide (0 - 100 PG/ML) 356.0 H Hematology WBC (4.5 - 11.0 x10 3/uL) 6.7 RBC (4.00 - 5.60 x10 6/uL) 4.22 Hgb (12.5 - 16.9 g/dL) 12.5 Hct (37.5 - 50.7 %) 42.2 MCV (81.0 - 99.0 fL) 100.0 H MCH (27.0 - 33.0 pg) 29.6 MCHC (33.0 - 37.0 g/dL) 29.6 L RDW (11.5 - 14.5 %) 15.7 H Plt Count (150 - 400 x10 3/uL) 199 MPV (7.0 - 9.0 fL) 11.5 H Neut % (Auto) (56.0 - 77.0 %) 64.1 Lymph % (Auto) (14.0 - 32.0 %) 19.3 [place] % (Auto) (4.8 - 9.0 %) 14.1 H Eos % (Auto) (0.3 - 3.7 %) 1.6 Baso % (Auto) (0.0 - 2.0 %) 0.3 Neut # (Auto) (2.0 - 7.6 x10 3/uL) 4.30 Lymph # (Auto) (1.0 - 3.8 x10 3/uL) 1.30 [place] # (Auto) (0.1 - 0.8 x10 3/uL) 0.95 H Eos # (Auto) (0.0 - 0.2 x10 3/uL) 0.11 Baso # (Auto) (0.0 - 0.2 x10 3/uL) 0.02 Abs Immat Gran (auto) (0.00 - 0.03 x10 3/uL) 0.04 H Add Manual Diff NO Immature Gran % (0.0 - 2.0 %) 0.6 Nucleated RBC % (0 - 0 %) 0.3 H Nucleated RBCs # (Man) (0.0 - 0.1 x10 3/uL) 0.02 Recent Impressions: RADIOLOGY - XR CHEST 1 V 04/17 214 Report Impression - Status: SIGNED Entered: 04/17/2023424 IMPRESSION: Constellation of findings are most suggestive of heart failure and dkiz-tt-fecseejn volume overload. Concurrent pneumonia is difficult to exclude however Impression By: Garrick Meng M.D. Lab Imaging Statement Laboratory radiographic studies reviewed and considered in the medical decision-making. ECG #1 Interpretation Text/Dict Note 70 bpm ventricularly paced rhythm no ST elevation, ST depression or T wave Date 04/17/23 Time 0220 Interpreted by and reviewed by me, ED physician Free Text I D Notes Free Text I D Notes Recent Impressions: RADIOLOGY - XR CHEST 1 V 04/17 214 Report Impression - Status: SIGNED Entered: 04/17/2023424 IMPRESSION: Constellation of findings are most suggestive of heart failure and mrym-nd-dspoaqlj volume overload. Concurrent pneumonia is difficult to exclude however Impression By: Garrick Meng M.D. Re-Evaluation MDM ED Course Medication(s) Ordered Medication(s) Ordered: Electrolytic, Caloric, And Sven Sig/Lala Start time Last Medication Dose Route Stop Time Status Admin Furosemide 40 MG X1ED STA 07/08 0215 DC / IV 04/176 0226 Free Text MDM Notes Free Text MDM Notes 72-year-old male with a history of diabetes, hypertension, CAD status post stents presents to the emergency department as a transfer for CHF/heart failure. Patient states he began having shortness of breath and bilateral lower extremity swelling 2 days ago and his symptoms progressed. At the outside facility he was started on BiPAP and given 40 mg of IV Lasix. Patient also endorsed some chest pain which has now resolved. Denies fever, chills, abdominal pain, nausea, vomiting, diarrhea, constipation, melena, hematochezia. Vital signs stable. Patient with 2+ bilateral lower extremity edema. Lungs clear to auscultation bilaterally. Troponin within normal limits. BNP elevated 356. Chest x-ray showed volume overload EKG without any signs of ischemia but did show a ventricularly paced rhythm. Patient given Lasix IV. Will admit to hospital medicine. Placed a consult for cardiology follow-up. Will admit to IM for closer monitoring. Patient Discharge Departure Vital Signs/Condition Vital Signs First Documented: Result Date Time Pulse Ox 97 / 0203 B/P 121/68 / 0203 B/P Mean 85 07/08 0203 O2 Delivery Room air / 0203 Temp 37.2 /08 0203 Pulse 70 / 0203 Resp 20 / 0203 FiO2 40 /08 0210 Last Documented: Result Date Time Pulse Ox 97 / 0431 B/P 130/62 07/08 0431 B/P Mean 89 07/08 0431 Pulse 72 07/08 0431 O2 Delivery BiPAP 04/17 0213 FiO2 40 / 0210 Temp 37.2 / 0203 Resp 20 / 0203 All vital signs available at the time of this entry have been reviewed. Condition Stable Clinical Impression Clinical Impression Primary Impression: CHF exacerbation Secondary Impressions: Shortness of breath Disposition Decision Hospitalize Hosp Physician Name Marcela Samuel MD )( Accepts Hospitalization Yes )( Reason for Hospitalization CHF EXACERBATION )( Accepted Time 043 )( Accepted Date 04/17/23 Call Information will see patient Discharge/Care Plan Counseled Regarding Diagnosis, Lab results, Imaging studies, Need for admission Admit Note I have spoken with the patient and/or caregivers. I have explained the patient's condition, diagnoses and treatment plan based on the information available to me at this time. I have answered the patient's and/or caregiver's questions and addressed any concerns. The patient and/or caregivers have as good an understanding of the patient's diagnosis, condition and treatment plan as can be expected at this point. The patient has been stabilized within the capability of the emergency department. The patient will be transported for further care and management or will be moved to an observation or inpatient service. I have communicated with the staff or medical practitioner taking over this patient's care. at 0451 RPT #:[id number] END OF REPORT [facility] 2021-12-24 13:57:00 [phone] [place] [address] PATIENT NAME: WILLI MERRITT ADMIT DATE: 12/24/21 ACCOUNT NO: [id number] ROOM NO: AGE: 71 REPORT TYPE: eELECTROCARDIOGRAM REPORT SEX: M ADMITTING PHYSICIAN: ATTENDING PHYSICIAN:Jorge Antonio MD Order: [id number] Test Reason : S/P PCI Test Date/Time Stamp: WedDec 24 2021 13:57:45 Blood Pressure : / mmHG Vent. Rate : 071 BPM Atrial Rate : 071 BPM P-R Int : 114 ms QRS Dur : 192 ms QT Int : 548 ms P-R-T Axes : 075 180 -28 degrees QTc Int : 595 ms Atrial-sensed ventricular-paced rhythm Abnormal ECG Confirmed by JOHNNIE WORKMAN ([id number]) on 12/25/2021 9:30:48 AM Referred By: Jorge Antonio Confirmed by:JOHNNIE WORKMAN at 0930 PATIENT NAME: WILLI MERRITT [facility] 2021-12-24 13:52:00 [phone] [place] [address] PATIENT NAME: WILLI MERRITT ADMIT DATE: 12/24/21 ACCOUNT NO: [id number] ROOM NO: AGE: 71 REPORT TYPE: CARDIAC CATHETERIZATION REPORT SEX: M ADMITTING PHYSICIAN: ATTENDING PHYSICIAN:Jorge Antonio MD PROCEDURE DATE: 12/24/2021 PROCEDURES PERFORMED: 1. Selective coronary angiogram. 2. Left heart catheterization. 3. IVUS of LAD. 4. PCI of severe mid LAD using 3.0 x 20 x 38 mm Synergy drug-eluting stent overlapped distally with a 2.75 x 12 mm Synergy drug-eluting stent. 5. PCI of proximal LAD, severe stenosis using 4.0 x 60 mm Synergy drug-eluting stent. INDICATIONS: Known severe LAD disease with a low ejection fraction. ACCESS: Right radial artery, 6-Mauritanian closed with TR band. COMPLICATIONS: None. BLEEDING: Less than 10 mL. DESCRIPTION OF PROCEDURE: After risks, benefits, and alternatives were explained, the patient agreed to proceed and signed informed consent. The patient was brought into the cardiac catheterization laboratory, prepped and draped in usual sterile fashion. Then, accessed right radial artery using pediatric micropuncture kit and placed 6-Mauritanian slender sheath. We gave fentanyl and Versed in incremental doses to achieve adequate moderate sedation. The patient started choking and became slightly hypoxic, so we reversed the fentanyl with Narcan and saturation improved immediately and I gave systemic heparin to assure ACT level above 250. The patient was loaded with 600 mg of Plavix once and 325 mg of aspirin once. Then, I took short Runthrough wire into the aortic root into the left main and LAD and placed distally. IVUS was done and there was no significant calcium, so I decided to proceed with predilating it using a 3.0 x 20 mm NC balloon. I then used a 4.0 x 12 mm NC balloon to dilate the proximal lesion and then placed a 3.0 x 38 mm Synergy drug-eluting stent into mid to distal LAD and then the distal lesion, I placed a 2.75 x 12 mm Synergy drug-eluting stent overlapped with the previous stent and then I took a 4.0 x 60 mm Synergy drug-eluting stent across the proximal lesion and deployed successfully. Final angiogram was satisfactory and removed the guide and the sheath and placed TR band with good hemostasis. FINDINGS: 1. Severe LAD disease, has distal 80% ____ lesions, status post successful PCI as above and proximal 80% lesion, status post successful PCI as above. Diagonal branches look okay. Septal branches has disease ranging between 50% and 60%. PATIENT NAME: WILLI MERRITT 2. Left main is large and normal. 3. Left circumflex is a moderate-sized, patent on the stent site and no significant disease. 4. RCA is known totally occluded, not injected. CONCLUSION: Successful PCI of severe LAD disease, IVUS-guided, as outlined above. PLAN: Continue aspirin, Plavix, and statin. Follow up with me in the office in 4 weeks. Dictated By: Jorge Antonio MD WT: CATH:EVONNE/BERNABE/ALE Conf#: [id number]/DID#: [id number] Authenticated by Jorge Antonio MD On 01/08/2022 02:25:04 PM at 0225 PATIENT NAME: ROBERT MERRITTSURI Hamilton [facility] 2021-12-23 10:22:00 [phone] [place] [address] PATIENT NAME: WILLI MERRITT ADMIT DATE: ACCOUNT NO: [id number] ROOM NO: AGE: 71 REPORT TYPE: eELECTROCARDIOGRAM REPORT SEX: M ADMITTING PHYSICIAN: ATTENDING PHYSICIAN:Jorge Antonio MD Order: [id number] Test Reason : PREOP Test Date/Time Stamp: WedDec 23 2021 10:22:50 Blood Pressure : / mmHG Vent. Rate : 077 BPM Atrial Rate : 077 BPM P-R Int : 112 ms QRS Dur : 174 ms QT Int : 518 ms P-R-T Axes : 000 164 -06 degrees QTc Int : 586 ms Atrial-sensed ventricular-paced rhythm Confirmed by JOHNNIE WORKMAN ([id number]) on 12/23/2021 11:01:36 AM Referred By: Jorge Antonio Confirmed by:JOHNNIE WORKMAN at 1101 PATIENT NAME: RENÉWILLI Hamilton [facility] 2021-11-26 11:33:00 [phone] [place] [address] PATIENT NAME: WILLI MERRITT ADMIT DATE: 11/26/21 ACCOUNT NO: [id number] ROOM NO: AGE: 71 REPORT TYPE: CARDIAC CATHETERIZATION REPORT SEX: M ADMITTING PHYSICIAN: ATTENDING PHYSICIAN:Jorge Antonio MD PROCEDURE DATE: 11/26/2021 PROCEDURES PERFORMED: 1. Selective coronary angiogram. 2. CSI atherectomy of BULK SEALER 100% occlusion of the mid left circumflex into ostial and proximal OM1 branch followed by PCI using 3.0 x 28 mm Synergy drug-eluting stent. COMPLICATIONS: None. BLEEDING: Less than 10 mL. ACCESS: Right radial artery, 6-Mauritanian closed with TR band. TOTAL SEDATION TIME: 75 minutes. DESCRIPTION OF PROCEDURE: After risks, benefits, and alternatives were explained, the patient agreed to proceed and signed informed consent. The patient was brought into the cardiac catheterization laboratory, prepped and draped in usual sterile fashion. Then, we accessed right radial artery using pediatric micropuncture kit, placed a 6-Mauritanian slender sheath. Then, I took a 5-Mauritanian [place] 4.0 catheter into the aortic root, engaged the left main, right coronary artery, took standard views and then exchanged for 6-Mauritanian XB3.5 guide, engaged the left main and took a Fielder XT wire through a Turnpike [employer] microcatheter and was able to cross the BULK SEALER and microcatheter was advanced into the distal portion of the OM and confirmed being in the true lumen. Then, I exchanged for a long Runthrough wire, removed the microcatheter and performed a CSI at low and high speed with good results. Subsequently, I used a 3.0 x 50 mm NC balloon for predilation. Then, I took a 3 x 28 mm Synergy drug-eluting stent deployed without difficulties and took a 4.0 x 12 mm NC balloon and postdilated the proximal portion of the stent to 4 mm size. Final angiogram was satisfactory. Then, I removed the wires and the guide and removed the sheath and placed a TR band with good hemostasis. FINDINGS: 1. Left main is very large and normal. 2. LAD is a large vessel, multiple areas of focal 80% stenosis, one in the proximal and one in the midsection and then there is diffuse 50% stenosis throughout the vessel and then followed by luminal irregularities. It is a large vessel that wraps around the apex. Diagonal branches that have mild diffuse disease as well. 3. Left circumflex: Its mid BULK SEALER extending into the OM branch, status post successful atherectomy and PCI as outlined above and after the stent was found PATIENT NAME: WILLI MERRITT to have a diffuse distal 30% to 40% stenosis. 4. RCA: There is a long stent from the proximal to distal with no stenosis; however, distally it is 100% occluded and the vessel was getting collaterals from the LAD to the PDA. CONCLUSION: 1. Severe LAD stenosis, which will be staged in about 3 to 4 weeks. 2. BULK SEALER of left circumflex to OM1, status post successful CSI atherectomy and PCI as above. 3. Totally occluded distal RCA with good collaterals from the LAD. PLAN: 1. The patient was loaded with Plavix, to continue that along with aspirin and high-dose statin. 2. Staged PCI with atherectomy of the LAD in 3 to 4 weeks. Dictated By: Jorge Antonio MD WT: CATH:EVONNE/BERNABE/NTS Conf#: [id number]/DID#: [id number] Authenticated by Jorge Antonio MD On 12/09/2021 10:55:56 AM at 1055 PATIENT NAME: WILLI MERRITT [facility] 2021-11-26 09:15:00 [phone] [address] PATIENT NAME: WILLI MERRITT ADMIT DATE: 11/26/21 ACCOUNT NO: [id number] ROOM NO: AGE: 71 REPORT TYPE: eELECTROCARDIOGRAM REPORT SEX: M ADMITTING PHYSICIAN: ATTENDING PHYSICIAN:Jorge Antonio MD Order: [id number] Test Reason : POST PCI Test Date/Time Stamp: WedNov 26 2021 09:15:30 Blood Pressure : / mmHG Vent. Rate : 067 BPM Atrial Rate : 022 BPM P-R Int : 000 ms QRS Dur : 170 ms QT Int : 548 ms P-R-T Axes : 065 230 -41 degrees QTc Int : 579 ms Ventricular-paced rhythm with PVC's Abnormal ECG Confirmed by SAL MCLEOD MD ([id number]) on 11/26/2021 9:20:57 PM Referred By: Jorge Antonio Confirmed by:SAL MCLEOD MD at 2120 PATIENT NAME: WILLI MERRITT [facility] 2021-11-24 10:01:00 [phone] [place] [address] PATIENT NAME: WILLI MERRITT ADMIT DATE: ACCOUNT NO: [id number] ROOM NO: AGE: 71 REPORT TYPE: eELECTROCARDIOGRAM REPORT SEX: M ADMITTING PHYSICIAN: ATTENDING PHYSICIAN:Jorge Antonio MD Order: [id number] Test Reason : PREOP Test Date/Time Stamp: WedNov 24 2021 10:01:04 Blood Pressure : / mmHG Vent. Rate : 073 BPM Atrial Rate : 073 BPM P-R Int : 000 ms QRS Dur : 200 ms QT Int : 504 ms P-R-T Axes : 091 182 -32 degrees QTc Int : 555 ms Ventricular-paced rhythm Abnormal ECG PRE_OP Confirmed by SAL MCLEOD MD ([id number]) on 11/24/2021 1:04:09 PM Referred By: Jorge Antonio Confirmed by:SAL MCLEOD MD at 1304 PATIENT NAME: WILLI MERRITT [facility] 2021-11-01 05:23:00 [facility] Hospitalist Progress Note REPORT#:[id number] REPORT STATUS: Signed DATE:11/01/21 TIME: 522 PATIENT: WILLI MERRITT UNIT #: [id number] ROOM/BED: [place] [address] : 52 AGE: 71 SEX: M ATTEND: Lisa Layton MD ADM AUTHOR: Jaelyn Martínez DO * ALL edits or amendments must be made on the electronic/computer document * Subjective Chief Complaint: defibullator discharge HPI: Sitting up at edge of bed eating pudding. Denies any further defibrillator discharges. States that he needs to be discharged today as his granddaughter's is tomorrow. Patient reports that he is in town visiting for the and plans to stay within the area for the next several months. Reports wearing chronic home O2 at 4L, currently at 8L Objective General VS/I O: Vital Signs: Date Time Temp Pulse Resp B/P B/P Pulse O2 O2 Flow FiO2 Mean Ox Delivery Rate 11/01 0322 36.9 65 20 118/64 81.7 93 Nasal cannula 10/31 2359 36.8 60 16 119/70 86.4 93 Nasal cannula 10/31 2228 99 Nasal 8 cannula 10/31 2020 36.8 66 20 119/70 86.3 91 Nasal cannula 10/31 1955 Nasal 4 cannula 10/31 1105 37.1 63 19 144/67 92 97 Nasal 9 cannula 10/31 1014 96 Nasal 5 cannula 10/31 0821 93 Nasal 5 cannula 10/31 0728 60 18 94 Nasal 9 cannula 10/31 0659 36.7 59 16 148/61 90 100 BiPAP 50 PATIENT WEIGHT: Weight (lb): Weight (oz): Weight (kg): 111.000 Medications: Active Meds + DC'd Last 24 Hrs Atropine Sulfate (ATROPINE SULFATE) 0.5 MG ONCE PRN IV Hydrocodone Bitart/Acetaminophen (NORCO 5/325 TABLET) 1 TAB Q4H PRN PRN PO Ondansetron HCl (ZOFRAN 2ML) 4 MG Q6H PRN PRN IV Sodium Chloride (SODIUM CHLORIDE 0.9%) 300 ML .Q6H IV (DC) Sodium Chloride (SODIUM CHLORIDE 0.9%) 500 ML BOLUS PRN IV Heparin Sodium/Sodium Chloride (HEPARIN 1,000 UNITS/NS 500ML) 500 ML .STK- MED ONE IV (DC) Fentanyl Citrate (SUBLIMAZE) 0 .STK-MED ONE .ROUTE (DC) Heparin Sodium/Sodium Chloride (HEPARIN 2,000 UNITS/NS 1000ML) 1,000 ML .STK -MED ONE IV (DC) Iopamidol (ISOVUE-370 150ML) 0 .STK-MED ONE .ROUTE (DC) Lidocaine (XYLOCAINE 2% 20ML (MP) MDV) 0 .STK-MED ONE .ROUTE (DC) Midazolam HCl (VERSED) 0 .STK-MED ONE .ROUTE (DC) Lisinopril (PRINIVIL OR ZESTRIL) 5 MG Q12HR PO Aspirin (ASPIRIN) 325 MG ONCE ONE PO (DC) Albuterol/Ipratropium (IPRATR-ALBUTEROL 0.5-3 MG/3 ML) 3 ML RTQ4H NEB ( DC) Amiodarone HCl (CORDARONE) 400 MG BID 9A 5P PO Furosemide (LASIX 40MG INJ) 40 MG BID 9A 5P IV Insulin Human Lispro (HumaLOG 100 UNITS/ML) SLIDING SCALE Q6HR SUBQ (DC) Acetaminophen (TYLENOL 325MG) 650 MG Q4H PRN PRN PO (DC) Dextrose/Water (DEXTROSE 10%) 125 ML ASDIR PRN IV (DC) Dextrose/Water (DEXTROSE 10%) 250 ML ASDIR PRN IV (DC) Glucagon (GLUCAGON) 1 MG ASDIR PRN IM (DC) Metoprolol Tartrate (LOPRESSOR) 25 MG Q12H PO Ondansetron HCl (ZOFRAN 2ML) 4 MG Q6H PRN PRN IV (DC) Results Findings/Data: Laboratory Tests 11/01 11/01 0139 1726 Chemistry Sodium (134.0 - 147.0 mmol/l) 142 Potassium (3.6 - 5.2 mmol/L) 4.2 Chloride (98.0 - 107.0 mmol/l) 104 Carbon Dioxide (21.0 - 33.0 mmol/l) 32.9 Anion Gap (0 - 20) 9.3 BUN (7.0 - 18.0 mg/dl) 12 Creatinine (0.60 - 1.30 mg/dL) 1.24 Est GFR ( Amer) (97 - 109 mL/min) 74 L Est GFR (Non-Af Amer) (80 - 90 mL/min) 61 L Glucose (70.0 - 110.0 mg/dl) 174 H POC Glucose (70 - 110 mg/dL) 215 H Calcium (8.0 - 10.5 mg/dl) 8.6 Laboratory Tests 11/01 0506 Hematology WBC (4.5 - 11.0 K/mm3) 6.8 RBC (4.40 - 5.90 M/mm3) 4.61 Hgb (13.0 - 17.0 gm/dL) 13.1 Hct (36.0 - 48.0 %) 44.7 MCV (80.0 - 94.0 UM3) 97.0 H MCH (25.5 - 32.5 UUG) 28.4 MCHC (29.0 - 35.5 gm/dL) 29.3 RDW (11.5 - 15.0 %) 15.7 H Plt Count (150 - 400 K/mm3) 172 MPV (7.4 - 10.4 fl) 11.8 H Neut % (Auto) (49.0 - 76.0 %) 74.3 Lymph % (Auto) (23.0 - 38.0 %) 14.6 L [place] % (Auto) (1.0 - 10.0 %) 9.3 Eos % (Auto) (1.0 - 5.0 %) 1.2 Baso % (Auto) (0.0 - 1.0 %) 0.3 Neut # (Auto) (2.4 - 6.3 K/mm3) 5.0 Lymph # (Auto) (1.2 - 4.0 K/mm3) 1.0 L [place] # (Auto) (0.0 - 0.6 K/mm3) 0.6 Eos # (Auto) (0.0 - 0.7 K/MM3) 0.1 Baso # (Auto) (0.0 - 0.2 K/mm3) 0.0 Absolute Nucleated RBC (0.00 - 0.01 X10 3uL) 0.00 Immature Gran % (0.0 - 0.4 %) 0.3 Nucleated RBC % (0.0 - 0.1 %) 0.0 Immature Gran # (0.00 - 0.07 x10 3/uL) 0.02 Results: labs reviewed, vital signs stable, current med profile rev'd Free Text Obj Notes Free Text Obj Notes: General: Patient is well-developed. Not in any acute distress at this time. Head: Normocephalic and atraumatic. Eyes: Normal conjunctiva. No scleral icterus. Pupils are equal and reactive to light. ENT: Oral mucosa pink and moist. No thrush is apparent. Mallampati is 1. Neck: No palpable cervical or supraclavicular lymphadenopathy. No jugular venous distention. Trachea midline. Respiratory: Crackles. Normal chest contour. Symmetric to expansion. No distress. On oxygen Cardiac: NSR, no m/r/g. Abdomen: Normoactive bowel sounds. No palpable hepatosplenomegaly or masses. Extremities: Pitting pedal edema bilaterally up to knees, 2+. No cyanosis, clubbing. Lymphatic: No palpable cervical or supraclavicular lymphadenopathy. Neurologic: Patient is awake, alert, and appropriate. Cranial nerves II through XII are grossly intact. No gross focal motor deficits. Musculoskeletal: No deformity is apparent. Normal muscle bulk and tone. Skin: warm, dry Psych: normal mood, normal affect Diagnosis, Assessment Plan Free Text DxA P Notes Free text DxA P notes: 1. Monomorphic VTach s/p ICD shock EP consult cards consult LHC today 2. CAD [facility] today DAPT + statin continue home meds 3. Acute Systolic CHF Exacerbation rsume home meds IV lasix o2 fluid restrictions 4. Pulmonary Edema Hypoxemic wean o2 as tolerated on home o2 5. DIANNE bipap at night 11/01: #Monomorphic VT: Status post ICD shock x2, EP and cards consulted, appreciate care. Continue amiodarone per EP recommendations. If pt does have persistent VT, can start mexiletine 150mg TID. Continue with telemetry monitoring #Acute on chronic respiratory failure with hypoxia requring supplemental oxygen: Pt's home O2 is 4L, currently on 8L. Continue with diuresis #Severe CAD, acute on chronic systolic HF, HTN: S/p LHC with severe [place] CAD with BULK SEALER of the RCA and BULK SEALER of the circumflex artery, recommendations are for aggressive medical therapy, consideration of of BULK SEALER intervention at a later date , no acute ischemia to suggest ischemia induced. TTE with EF 35-39% with systolic function mildy reduced, no RWMA, grade 2 diastolic dysfunction. Continue lisinopril, aspirin, IV Lasix, metoprolol #DIANNE: continue bipap at night at 0738 [facility] #:[id number] END OF REPORT [facility] 2021-10-31 17:53:00 [id number] [facility] [place] [address] [address] [place], [place] [address] PATIENT NAME: WILLI MERRITT ADMIT DATE: 10/31/21 ACCOUNT NO: [id number] ROOM NO: E.[facility] AGE: 71 REPORT TYPE: CARDIAC CATHETERIZATION REPORTDATE OF : 54 SEX: M ADMITTING PHYSICIAN:Juma Rausch MD ATTENDING PHYSICIAN:Lisa Layton MD PROCEDURE DATE: 10/31/2021 INDICATION FOR PROCEDURE: The patient is a 71-year-old male patient with past medical history of congestive heart failure, Bi-V ICD implant, hypertension, coronary artery disease, previous history of stents placement, comes after 2 episodes of ICD shock and the device was interrogated, which showed ventricular tachycardia. The patient was taken for a cardiac catheterization to rule out any acute ischemia. PROCEDURES DONE: 1. Right radial artery sheath placement. 2. Selective coronary angiography. 3. Left heart catheterization with measurement of LVEDP. 4. Moderate sedation, total of 24 minutes. FINDINGS: 1. Left main artery appeared normal. 2. LAD showed mild irregularities. Proximal LAD had about 50% lesion. Rest of the LAD showed mild irregularities. 3. Left circumflex artery was occluded in the mid segment. Distal left circumflex artery and obtuse marginal branches were filled with gsbr-eq-cezq collaterals showing that BULK SEALER segment was a very short segment. 4. RCA was dominant. RCA was large and had a stent starting from the distal part of the mid segment all the way into the PDA and had a BULK SEALER segment just after mid segment. The whole of the stent was occluded. Distal part of the PDA appeared to fill with uzyg-qh-olfev collaterals. 5. LVEDP was measured at 24 mmHg. 6. There was no LV aortic gradient. PROCEDURE DETAILS: The patient was brought to cardiac catheterization lab in a fasting state. The patient was prepped and draped in sterile fashion. A 6-Mauritanian sheath was introduced in the right radial artery after obtaining access using an angiocatheter. Buck catheter was used for right coronary angiography, unable to cannulate the left main artery due to severe tortuosity of the right subclavian artery, so I used a 6-Mauritanian JL4 catheter to cannulate the left main and angiography was performed. After review of the images, it seemed like that this BULK SEALER of the RCA and BULK SEALER of the circumflex artery is present, appeared chronic. It was felt that it could be managed medically at this time, could consider BULK SEALER intervention at a later date and no acute lesions for ischemia. Then, a pigtail catheter was used to cross the aortic valve and LVEDP was measured. Pigtail catheter was removed into the aorta and then removed over the wire. Right radial band was removed, and radial TR band applied achieving good hemostasis. The patient left the cardiac catheterization lab in a stable PATIENT NAME: WILLI MERRITT condition. CONTRAST USED: Low osmolar contrast. AMOUNT OF BLOOD LOSS: Less than 10 mL. SEDATION: Moderate sedation using fentanyl and Versed, total of 24 minutes. COMPLICATIONS: None. IMPRESSION: Severe [place] coronary artery disease with BULK SEALER of the RCA and BULK SEALER of the circumflex artery. RECOMMENDATIONS: Continue aggressive medical therapy. We will consider a BULK SEALER intervention at a later date. No acute ischemia to suggest ischemia-induced VT, so we will continue medical therapy. Results were discussed in detail with the patient. Dictated By: Elizabeth David MD WT: CATH:KAY/LEXUS/ALE Conf#: [id number]/DID#: [id number] Authenticated by Elizabeth David On 11/10/2021 09:50:09 AM at 0950 PATIENT NAME: WILLI MERRITT [facility] 2021-10-31 16:40:00 [id number] [address] PATIENT NAME: WILLI MERRITT ADMIT DATE: 10/31/21 ACCOUNT NO: [id number] ROOM NO: [facility] AGE: 71 REPORT TYPE: ECHOCARDIOGRAM REPORT DATE OF : 54 SEX: M ADMITTING PHYSICIAN:Juma Rausch MD ATTENDING PHYSICIAN:Lisa Layton MD *[facility]* [address] [place] [address] Transthoracic Echocardiogram Patient: Willi Merritt Study Date: 10/31/2021 BP: 148 / 61 Location: [facility] URN: [id number] : 1950 Age: 71 Height: 70 in / 177.8 cm Gender: M Weight: 243.5 lb / 110.7 kg BMI/BSA: 35 kg/m 2 / 2.27 m 2 *Ordering Physician: * Shara Jackman *Interpreting Physician: * Elizabeth David MD *Dining Room Server: * Salina Lua, MAURA, LEANDER Indications: DEFIB DISCHARGE. Study data: Transthoracic echocardiogram. Complete 2D, complete spectral Doppler, and color Doppler. Patient status: Inpatient. Patient room number: ER. Findings Left ventricle: The cavity size is mildly dilated. Wall thickness is normal. Systolic function is moderately reduced. The estimated ejection fraction is 35-39%. Wall motion is normal; there are no regional wall motion abnormalities. Features are consistent with a pseudonormal left ventricular filling pattern, with concomitant abnormal relaxation and increased filling pressure (grade 2 diastolic dysfunction). Right ventricle: The cavity size is normal. Systolic function is normal. Systolic pressure is increased. PATIENT NAME: WILLI MERRITT Left atrium: The atrium is normal in size. Right atrium: The atrium is normal in size. Aorta: Aortic root: The aortic root is normal in size. Aortic valve: The annulus is mildly calcified. The valve is trileaflet. There is no evidence of stenosis. There is no regurgitation. Mitral valve: The valve is structurally normal. There is no evidence of stenosis. There is mild to moderate regurgitation. Tricuspid valve: The valve is structurally normal. There is mild-moderate regurgitation. Pulmonic valve: The valve is structurally normal. There is no regurgitation. Pericardium: There is no pericardial effusion. Pulmonary arteries: The main pulmonary artery is normal-sized. Systolic pressure is increased. Systemic veins: Inferior vena cava: The vessel is normal in size. Measurements Left ventricle Value Ref OLMAN, LAX 5.9 cm 4.2 - 5.8 ESD, LAX 4.6 cm 2.5 - 4.0 ESD/bsa, LAX 2.0 cm/m 2 1.3 - 2.1 FS, LAX 22 % 25 - 43 ESD/bsa major ax, A4C 2.5 cm/m 2 --------- OLMAN/bsa minor ax, A4C 2.5 cm/m 2 --------- OLMAN major ax, A2C 7.5 cm --------- OLMAN/bsa major ax, A2C 3.3 cm/m 2 --------- PW, ED 1.5 cm 0.6 - 1.0 IVS/PW, ED 0.99 --------- EF 44 % 52 - 72 E', lat luzma, TDI 5.1 cm/sec >=10.0 E/e', lat luzma, TDI 12 --------- E', med luzma, TDI 4.6 cm/sec >=7.0 E/e', med luzma, TDI 14 --------- E', avg, TDI 4.9 cm/sec --------- E/e', avg, TDI 13 <=14 LVOT Value Ref Diam, S 2.08 cm --------- Area 3.4 cm 2 --------- Peak radha, S 0.68 m/sec --------- Mean radha, S 0.49 m/sec --------- VTI, S 13.3 cm --------- Peak grad, S 2 mm Hg --------- Mean grad, S 1 mm Hg --------- SV 44 ml --------- SV/bsa 19 ml/m 2 --------- Ventricular septum Value Ref IVS, ED 1.5 cm 0.6 - 1.0 Right ventricle Value Ref OLMAN, LAX 3.0 cm --------- PATIENT NAME: WILLI MERRITT Alfonso Pressure, S 50 mm Hg --------- RVOT Value Ref Peak v, S 0.57 m/sec --------- Peak grad, S 1 mm Hg --------- Left atrium Value Ref AP dim, ES MM 3.2 cm 3.0 - 4.0 LA/Ao root ratio, MM 0.95 --------- Aortic valve Value Ref Leaflet sep, MM 1.62 cm --------- Peak v, S 0.95 m/sec --------- Mean v, S 0.7 m/sec --------- VTI, S 16.2 cm --------- Mean grad, S 2.2 mm Hg --------- Peak grad, S 3.6 mm Hg --------- LVOT/AV, VTI ratio 0.82 --------- JANAK, VTI 2.79 cm 2 --------- LVOT/AV, Vpeak ratio 0.71 --------- JANAK, Vmax 2.44 cm 2 --------- Mitral valve Value Ref Peak E 0.62 m/sec --------- Peak A 0.54 m/sec --------- Decel time 297 ms --------- PHT 81 ms --------- Peak E/A ratio 1.15 --------- MVA, PHT 2.7 cm 2 --------- Tricuspid valve Value Ref TR peak v 3.15 m/sec <=2.8 Peak RV-RA grad, S 40 mm Hg --------- Aortic root Value Ref Root diam, ED MM 3.31 cm --------- Pulmonary artery Value Ref Pressure, S 48.0 mm Hg --------- Systemic veins Value Ref Estimated CVP 10 mm Hg --------- Conclusions Summary: 1. Left ventricle: The cavity size is mildly dilated. Wall thickness is normal. Systolic function is moderately reduced. The estimated ejection fraction is 35-39%. Wall motion is normal; there are no regional wall motion abnormalities. Features are consistent with a pseudonormal left ventricular filling pattern, with concomitant abnormal relaxation and increased filling pressure (grade 2 diastolic dysfunction). 2. Right ventricle: Systolic pressure is increased. The RV pressure PATIENT NAME: ROBERT MERRITTNE P during systole by Doppler is 50 mm Hg. 3. Aortic valve: The annulus is mildly calcified. The valve is trileaflet. 4. Mitral valve: There is mild to moderate regurgitation. 5. Tricuspid valve: There is mild-moderate regurgitation. 6. Pericardium, extracardiac: There is no pericardial effusion. Prepared and electronically signed by Elizabeth David MD 10/31/2021 16:40 at 1640 PATIENT NAME: WILLI MERRITT [facility] 2021-10-31 16:34:00 [facility] ([facility]) Hospitalist History Physical REPORT#:[id number] REPORT STATUS: Signed DATE:10/31/21 TIME: 1634 PATIENT: WILLI MERRITT UNIT #: [id number] ROOM/BED: [address] : [birth year] AGE: 71 SEX: M ATTEND: Lisa Layton MD ADM AUTHOR: Lisa Layton MD * ALL edits or amendments must be made on the electronic/computer document * History of Present Illness HPI Chief complaint: defib discharge HPI: 71yo male with hx of CHF s/p BiV ICD, CAD s/p PCI over two years ago, obesity, DIANNE, HTN comes in because his defibrillator shocked him twice. He was outside walking to the truck and became diaphoretic, lightheaded and nauseated the his ICD went off. Then one minute later it went off agian. He did not have any chest pain at all. He is in town from [place] for a . Poor historian and I cannot make out if he is moving here or going back to [place]. In the ER his blood work shows mildly elevated troponin, CXR shows pulmonary edema. History Social History Smoking status: Smoking status for patients 13 years old or older: Current some day smoker Medication/Allergy-Vaccine Hx Allergies: Coded Allergies: No Known Allergies (10/30/21) Review of Systems Free Text ROS Notes Free Text ROS Notes: General: No current fevers or chills. Eyes: No recent visual change, redness, discharge. ENT: No recent hearing loss, nasal congestion, sinus problems, or sore throat. Respiratory: See HPI. Cardiovascular: No chest pain or leg edema. Gastrointestinal: No nausea vomiting or diarrhea. Genitourinary: No dysuria, urgency, or hematuria. Musculoskeletal: No arthralgias, myalgias, joint pain or swelling. Hematologic: No recent history of bleeding, bruising, or adenopathy. Endocrine: No heat or cold intolerance. Neurologic: No seizures, syncope, or focal weakness. Psychiatric: No anxiety, agitation, depression, or confusion. Skin: No rash, swelling, bruising. Lymphatic: No lymphadenopathy. Physical Exam VS/I O: Vital Signs Date Temp Pulse Resp B/P B/P Mean Pulse Ox FiO2 10/30-10/31 36.6-37.1 59-72 15-19 134-148/61-81 90-99 89-100 40-50 Last Documented: Result Date Time Pulse Ox 97 10/31 1105 B/P 144/67 10/31 1105 B/P Mean 92 10/31 1105 O2 Delivery Nasal cannula 10/31 1105 O2 Flow Rate 9 10/31 1105 Temp 37.1 10/31 1105 Pulse 63 10/31 1105 Resp 19 10/31 1105 FiO2 50 10/31 0659 24 hour I O ending at 0700: 10/31 0700 10/30 1900 Intake Total Output Total Balance Patient 111 kg Weight Weight Bed scale Measurement Method Patient Weight and BMI Weight (kg): 111.000 BMI: 35.1 Results Findings/Data: Laboratory Tests: 10/31 10/31 10/31 10/30 10/30 0657 0557 0327 [id number] [id number] Chemistry POC Glucose (70 - 110 mg/dL) 115 H 117 H Troponin I (0.00 - 0.06 NG/ML) 0.63 *H 0.59 *H 0.43 H 10/30 1724 Serology SARS-CoV-2 Ag (Rapid) (NEGATIVE) NEGATIVE Free Text PE Notes Free Text PE Notes: General: Patient is well-developed. Not in any acute distress at this time. Head: Normocephalic and atraumatic. Eyes: Normal conjunctiva. No scleral icterus. Pupils are equal and reactive to light. ENT: Oral mucosa pink and moist. No thrush is apparent. Mallampati is 1. Neck: No palpable cervical or supraclavicular lymphadenopathy. No jugular venous distention. Trachea midline. Respiratory: Crackles. Normal chest contour. Symmetric to expansion. No distress. Cardiac: +S1 S2. Abdomen: Flat and soft. Normoactive bowel sounds. No palpable hepatosplenomegaly or masses. Extremities: Pitting pedal edema bilaterally up to knees. No cyanosis, clubbing. Lymphatic: No palpable cervical or supraclavicular lymphadenopathy. Neurologic: Patient is awake, alert, and appropriate. Cranial nerves II through XII are grossly intact. No gross focal motor deficits. Musculoskeletal: No deformity is apparent. Normal muscle bulk and tone. Diagnosis, Assessment Plan Free Text A P: 1. Monomorphic VTach s/p ICD shock EP consult cards consult LHC today 2. CAD LHC today DAPT + statin continue home meds 3. Acute Systolic CHF Exacerbation rsume home meds IV lasix o2 fluid restrictions 4. Pulmonary Edema Hypoxemic wean o2 as tolerated on home o2 5. DIANNE bipap at night at 1700 RPT #:[id number] END OF REPORT [facility] 2021-10-31 12:20:00 [facility] ([facility] Cardiology Progress Note REPORT#:[id number] REPORT STATUS: Signed DATE:10/31/21 TIME: 1220 PATIENT: WILLI MERRITT UNIT #: [id number] ROOM/BED: [place] [address] : [birth year] AGE: 71 SEX: M ATTEND: Lisa Layton MD ADM AUTHOR: Ann Jaime TABLE COVER FOLDER * ALL edits or amendments must be made on the electronic/computer document * Ann Jaime 10/31/21 1220: Objective General VS/I O: 24 hour I O ending at 0700: 10/31 0700 10/30 1900 Intake Total Output Total Balance Patient 111 kg Weight Weight Bed scale Measurement Method Vital Signs: Date Time Temp Pulse Resp B/P B/P Pulse O2 O2 Flow FiO2 Mean Ox Delivery Rate 10/31 1105 37.1 63 19 144/67 92 97 Nasal 9 cannula 10/31 1014 96 Nasal 5 cannula 10/31 0821 93 Nasal 5 cannula 10/31 0728 60 18 94 Nasal 9 cannula 10/31 0659 36.7 59 16 148/61 90 100 BiPAP 50 10/31 0310 BiPAP 50 10/31 0300 60 18 134/81 98 100 BiPAP 50 10/31 0117 99 BiPAP 50 10/31 0114 BiPAP 10/31 0113 60 99 50 10/31 0100 36.6 60 17 135/72 93 97 BiPAP 50 10/30 2300 BiPAP 50 10/30 2300 36.6 60 17 134/77 96 89 Nasal 5 cannula 10/30 2108 99 Nasal 5 40 cannula 10/30 210 BiPAP 50 10/30 2101 60 15 137/81 99 99 BiPAP 50 10/30 1953 72 99 50 10/30 195 99 BiPAP 50 10/30 1755 100 BiPAP 50 10/30 1752 BiPAP 50 10/30 1632 81 96 50 10/30 1632 99 BiPAP 50 10/30 1612 36.6 83 22 168/88 114 97 Room air PATIENT WEIGHT: Weight (lb): Weight (oz): Weight (kg): 111.000 Medications: Active Meds + DC'd Last 24 Hrs Lisinopril (PRINIVIL OR ZESTRIL) 5 MG Q12HR PO (UNV) Aspirin (ASPIRIN) 325 MG ONCE ONE PO (DC) Albuterol/Ipratropium (IPRATR-ALBUTEROL 0.5-3 MG/3 ML) 3 ML RTQ4H NEB Amiodarone HCl (CORDARONE) 400 MG BID 9A 5P PO Furosemide (LASIX 40MG INJ) 40 MG BID 9A 5P IV Insulin Human Lispro (HumaLOG 100 UNITS/ML) SLIDING SCALE Q6HR SUBQ Acetaminophen (TYLENOL 325MG) 650 MG Q4H PRN PRN PO Dextrose/Water (DEXTROSE 10%) 125 ML ASDIR PRN IV (CAN) Dextrose/Water (DEXTROSE 10%) 250 ML ASDIR PRN IV (CAN) Dextrose/Water (DEXTROSE 10%) 125 ML ASDIR PRN IV Dextrose/Water (DEXTROSE 10%) 250 ML ASDIR PRN IV Glucagon (GLUCAGON) 1 MG ASDIR PRN IM (CAN) Glucagon (GLUCAGON) 1 MG ASDIR PRN IM Metoprolol Tartrate (LOPRESSOR) 25 MG Q12H PO Ondansetron HCl (ZOFRAN 2ML) 4 MG Q6H PRN PRN IV Azithromycin (ZITHROMAX I.V.) 500 MG X1ED STA IV (DC) Sodium Chloride (SODIUM CHLORIDE 0.9%) 250 ML Aspirin (ASPIRIN 81MG CHEW) 324 MG X1ED STA PO (DC) Physical Exam General appearance: alert, awake, oriented, no acute distress Head/Eyes: atraumatic ENT: moist mucosal membranes Neck: no bruit/NL carotids, no JVD Cardiovascular: CV assessment: regular rate and rhythm, BP pulses = bilaterally, normal heart sounds Respiratory: clear to auscultation, no distress Abdomen: soft, non-tender Neuro/HAND STONER: alert, oriented X 3, normal speech Psychiatry: normal affect Results Findings/Data: Laboratory Tests 10/31 10/31 10/31 10/30 10/30 0657 0557 0567 [id number] 9264 Chemistry POC Glucose (70 - 110 mg/dL) 115 H 117 H Troponin I (0.00 - 0.06 NG/ML) 0.63 *H 0.59 *H 0.43 H 10/30 1656 Chemistry Sodium (134.0 - 147.0 mmol/l) 142 Potassium (3.6 - 5.2 mmol/L) 3.4 L Chloride (98.0 - 107.0 mmol/l) 105 Carbon Dioxide (21.0 - 33.0 mmol/l) 29.9 Anion Gap (0 - 20) 10.5 BUN (7.0 - 18.0 mg/dl) 6 L Creatinine (0.60 - 1.30 mg/dL) 1.03 Est GFR ( Amer) (97 - 109 mL/min) 92 L Est GFR (Non-Af Amer) (80 - 90 mL/min) 76 L Glucose (70.0 - 110.0 mg/dl) 134 H Calcium (8.0 - 10.5 mg/dl) 8.5 Troponin I (0.00 - 0.06 NG/ML) 0.04 B-Natriuretic Peptide (5 - 100 PG/ML) 670 H Laboratory Tests 10/30 1656 Coagulation INR (0.89 - 1.14) 1.3 H PT Patient/Control Mix (9.9 - 12.8 SECONDS) 15.1 H Laboratory Tests 10/30 1656 Hematology WBC (4.5 - 11.0 K/mm3) 7.7 RBC (4.40 - 5.90 M/mm3) 4.63 Hgb (13.0 - 17.0 gm/dL) 12.9 L Hct (36.0 - 48.0 %) 43.4 MCV (80.0 - 94.0 UM3) 93.7 MCH (25.5 - 32.5 UUG) 27.9 MCHC (29.0 - 35.5 gm/dL) 29.7 RDW (11.5 - 15.0 %) 15.4 H Plt Count (150 - 400 K/mm3) 162 MPV (7.4 - 10.4 fl) 10.7 H Neut % (Auto) (49.0 - 76.0 %) 79.5 H Lymph % (Auto) (23.0 - 38.0 %) 11.7 L Florence % (Auto) (1.0 - 10.0 %) 7.2 Eos % (Auto) (1.0 - 5.0 %) 1.0 Baso % (Auto) (0.0 - 1.0 %) 0.3 Neut # (Auto) (2.4 - 6.3 K/mm3) 6.1 Lymph # (Auto) (1.2 - 4.0 K/mm3) 0.9 L Florence # (Auto) (0.0 - 0.6 K/mm3) 0.6 Eos # (Auto) (0.0 - 0.7 K/MM3) 0.1 Baso # (Auto) (0.0 - 0.2 K/mm3) 0.0 Absolute Nucleated RBC (0.00 - 0.01 X10 3uL) 0.00 Immature Gran % (0.0 - 0.4 %) 0.3 Nucleated RBC % (0.0 - 0.1 %) 0.0 Immature Gran # (0.00 - 0.07 x10 3/uL) 0.02 Laboratory Tests 10/30 1724 Serology SARS-CoV-2 Ag (Rapid) (NEGATIVE) NEGATIVE Laboratory Tests 10/31 10/31 10/30 10/30 0657 0322 [id number] Chemistry Troponin I (0.00 - 0.06 NG/ML) 0.63 *H 0.59 *H 0.43 H 0.04 B-Natriuretic Peptide (5 - 100 PG/ML) 670 H Radiology data: Recent Impressions: RADIOLOGY - XR CHEST 1 V 10/30 1641 Report Impression - Status: SIGNED Entered: 10/30/2021 1646 IMPRESSION: Cardiomegaly with mild central pulmonary congestion. Impression By: Dagoberto Gunter M.D. Diagnosis, Assessment Plan Hospital course to date: ASSESSMENT AND PLAN: A 71-year-old male patient with history of coronary artery disease, hypertension, congestive heart failure, ICD implant, comes with ICD firing. 1. ICD discharge. Bi-V ICD was interrogated, which showed evidence of V-tach, both terminated by ICD shock.will refer to EP DR Colón. He will likely need further evaluation. We will get an echocardiogram to assess left ventricular function. The patient may need ischemic evaluation.Patient agrees for [facility] will get cath this afternoon. 2. History of coronary artery disease. We will rule out myocardial infarction.We will follow clinically. 3. Srima-uy-dnltidm systolic heart failure. The patient with significant fluid overload. We will continue IV diuretics. Continue metoprolol. We will also start him back on lisinopril. 4. Hypertension. Continue home medications. POC discussed with Steffanie Ahn 11/04/21 0919: Attestations Physician Attestation Agree w/findings plan: I have seen and examined the patient at bedside. I have reviewed the relevant test results and formulated the assessment and plan. I agree with the note by Ann Jaime NP. at 0923 at 1642 RPT #:[id number] END OF REPORT [facility] 2021-10-31 12:08:00 [id number] [facility] on [address] [address] PATIENT NAME: WILLI MERRITT ADMIT DATE: 10/31/21 ACCOUNT NO: [id number] DISCHARGE DATE: 11/01/21 ROOM NO: E.216 REPORT TYPE: CONSULTATION REPORT DATE OF : [birth year] AGE: 71 SEX: M ADMITTING PHYSICIAN:Juma Rausch MD ATTENDING PHYSICIAN:Lisa Layton MD CONSULTATION DATE: 10/31/2021 CONSULTING PHYSICIAN: Alana Holcomb DO REFERRING PHYSICIAN: Frankie Johnson MD REASON FOR CONSULTATION: Defibrillator shock. HISTORY OF PRESENT ILLNESS: Mr. Merritt is a 71-year-old man with a history of systolic cardiomyopathy, who had a biventricular defibrillator implanted approximately one year ago in [place] presumed to be secondary prevention. The patient is a relatively poor historian, but states that he presented to the hospital today because he received 2 defibrillator shocks. He reports that this has occurred in the past as well for approximately 3 prior episodes; however, the patient did not present to the Emergency Department those times. The patient states that he is compliant with his medications and otherwise within the normal state of health. On interrogation of his device, it was noted that the patient did have 2 episodes of what appears to be monomorphic ventricular tachycardia and a heart rate approximately 250 beats per minute. Both were appropriately given a defibrillator shock for termination of the ventricular tachycardia. There is another episode of ventricular tachycardia at approximately 150 beats per minute, which did not receive treatment. EP was consulted to discuss treatment options. REVIEW OF SYSTEMS: He currently denies having any fevers, chills, lightheadedness, dizziness; discharge in eyes, nose, or mouth; swollen lymph nodes in neck or groin; chest pain, palpitations, shortness of breath, coughing; abdominal pain, nausea, vomiting; dysuria, hematuria; swollen joints, joint pain; numbness, tingling, weakness; swollen legs or arms; skin rash, ulcers; depression, or anxiety. PAST MEDICAL HISTORY: As noted above. Additionally, the patient does have a presumed history of coronary artery disease and hypertension. PAST SURGICAL HISTORY: As noted above. FAMILY HISTORY: No family history of early cardiac or sudden arrhythmias. SOCIAL HISTORY: Does not smoke cigarettes, drink alcohol, or use illicit drugs. MEDICATIONS: Please see MAR. The patient has been started on amiodarone. Here, it is uncertain whether or not he was taking these medications prior. PATIENT NAME: WILLI MERRITT ALLERGIES: PLEASE SEE MAR. PHYSICAL EXAMINATION: VITAL SIGNS: Temperature is afebrile, heart rate currently is sinus approximately 70 beats per minute, blood pressure 130s/60s, respiratory rate 12. GENERAL: No acute distress. Alert, awake, and oriented x3. HEENT: Normocephalic and atraumatic. Pupils equal and reactive to light. LYMPH NODES: No supraclavicular or submandibular lymphadenopathy appreciated. CARDIOVASCULAR: S1 and S2. Regular rate and rhythm. RESPIRATORY: Good air entry globally. No wheezing. GASTROINTESTINAL: Abdomen is soft and nontender. GENITOURINARY: No bladder fullness. No CVA tenderness. MUSCULOSKELETAL: No effusion or erythema noted in knees or elbows bilaterally. SKIN: No bruising or ulcers. PSYCHIATRIC: Mood is normal. Answers questions appropriately. LABORATORY DATA: Noted and relatively normal. The patient does have a slight hypokalemia with a potassium of 3.4. ASSESSMENT AND PLAN: Mr. Merritt is a 71-year-old man with history of coronary artery disease, systolic cardiomyopathy with a biventricular defibrillator implanted approximately 1 year ago in [place]. The patient presented to the hospital due to defibrillator shock. 1. Sustained ventricular tachycardia with a defibrillator shock. On interrogation of the patient's device and shock electrograms demonstrate what appears to be monomorphic ventricular tachycardia, heart rate approximately 250 beats per minute. Both these arrhythmias were terminated with a defibrillator shock, and also on further interrogation, it seemed that the patient does have a slower ventricular tachycardia at approximately 150 beats per minute. I will decrease the patient's treatment zone down to 140 beats per minute to ensure that he is appropriately treated for these slow ventricular tachycardia if they are to occur again with ATP as well as shock if need be. Additionally, the patient is on amiodarone and I would recommend continuing amiodarone 400 mg p.o. b.i.d. He is a relatively poor historian and unsure of what his medications are. We will continue to monitor on amiodarone. If the patient does persist to have ventricular tachycardia, we can start mexiletine 150 mg 3 times daily. He will undergo further cardiac evaluation with transthoracic echocardiogram as well as ischemic evaluation. EP will continue to follow. I have briefly discussed with him the utility of ventricular tachycardia ablation, which we can have more detailed conversation in the clinic as well. This plan has been discussed with cardiology service and the patient has been agreeable. Thank you very much for allowing us to participate in Mr. Merritt's care. Please call with questions. Dictated By: Alana Holcomb DO WT: CON:ABELARDO/[email or web address]/NTS Conf#: [id number]/DID#: [id number] PATIENT NAME: WILLI MERRITT Authenticated by Alana DO Aicha On 11/06/2021 08:52:29 AM at 0852 PATIENT NAME: WILLI MERRITT [facility] 2021-10-31 09:31:00 [facility] ([facility]) Pulmonary Consultation Note REPORT#:[id number] REPORT STATUS: Signed DATE:10/31/21 TIME: 930 PATIENT: WILLI MERRITT UNIT #: [id number] ROOM/BED: [place] [address] : [birth year] AGE: 71 SEX: M ATTEND: Lisa Layton MD ADM AUTHOR: Smiley Ellsworth * ALL edits or amendments must be made on the electronic/computer document * Smiley Ellsworth 10/31/21 0931: History of Present Illness Free Text HPI Notes Free Text HPI Notes: The patient is a 71-year-old male with past medical history of coronary artery disease, possible history of CHF, BiV ICD implant, sending to [facility] ED with an ICD discharge. The patient is from [place]. He was visiting [facility] and noted that he got shocked twice this afternoon. He said he had a similar shock about 6 months ago. States he has been taking his medications regularly. Denies any chest pain. Denies any palpitations. Denies any other complaints. Poor historian. Medical history: Coronary artery disease and history of stents in the past History of BiV ICD implant last year History of congestive heart failure, EF unknown Hypertension Allergies: No known drug allergies Social history: No history of smoking alcohol abuse or drug abuse Family history Noncontributory Review of systems: General: No current fevers or chills. Eyes: No recent visual change, redness, discharge. ENT: No recent hearing loss, nasal congestion, sinus problems, or sore throat. Respiratory: See HPI. Cardiovascular: No chest pain or leg edema. Gastrointestinal: No nausea vomiting or diarrhea. Genitourinary: No dysuria, urgency, or hematuria. Musculoskeletal: No arthralgias, myalgias, joint pain or swelling. Hematologic: No recent history of bleeding, bruising, or adenopathy. Endocrine: No heat or cold intolerance. Neurologic: No seizures, syncope, or focal weakness. Psychiatric: No anxiety, agitation, depression, or confusion. Skin: No rash, swelling, bruising. Lymphatic: No lymphadenopathy. Physical examination: General: Patient is well-developed. Not in any acute distress at this time. Head: Normocephalic and atraumatic. Eyes: Normal conjunctiva. No scleral icterus. Pupils are equal and reactive to light. ENT: Oral mucosa pink and moist. No thrush is apparent. Mallampati is 1. Neck: No palpable cervical or supraclavicular lymphadenopathy. No jugular venous distention. Trachea midline. Respiratory: Crackles. Normal chest contour. Symmetric to expansion. No distress. Cardiac: +S1 S2. Abdomen: Flat and soft. Normoactive bowel sounds. No palpable hepatosplenomegaly or masses. Extremities: Pitting pedal edema bilaterally up to knees. No cyanosis, clubbing. Lymphatic: No palpable cervical or supraclavicular lymphadenopathy. Neurologic: Patient is awake, alert, and appropriate. Cranial nerves II through XII are grossly intact. No gross focal motor deficits. Musculoskeletal: No deformity is apparent. Normal muscle bulk and tone. History - Adult longitudinal Smoking status: Smoking status for patients 13 years old or older: Current some day smoker Allergies: Coded Allergies: No Known Allergies (10/30/21) Objective Physical Exam Vitals: Last Documented: Result Date Time Pulse Ox 93 10/31 08 O2 Delivery Nasal cannula 10/31 820 O2 Flow Rate 5 10/31 08 Pulse 60 10/31 0728 Resp 18 10/31 0728 B/P 148/61 10/31 658 B/P Mean 90 10/31 06 FiO2 50 10/31 06 Temp 98.1 10/31 658 Results Findings/Data: Laboratory Tests 10/30/21 1656: [Embedded Image Not Available] Laboratory Tests 10/31 10/31 10/31 10/30 10/30 0657 0557 [id number] Chemistry POC Glucose (70 - 110 mg/dL) 115 H 117 H Troponin I (0.00 - 0.06 NG/ML) 0.63 *H 0.59 *H 0.43 H 10/30 1656 Chemistry Sodium (134.0 - 147.0 mmol/l) 142 Potassium (3.6 - 5.2 mmol/L) 3.4 L Chloride (98.0 - 107.0 mmol/l) 105 Carbon Dioxide (21.0 - 33.0 mmol/l) 29.9 Anion Gap (0 - 20) 10.5 BUN (7.0 - 18.0 mg/dl) 6 L Creatinine (0.60 - 1.30 mg/dL) 1.03 Est GFR ( Amer) (97 - 109 mL/min) 92 L Est GFR (Non-Af Amer) (80 - 90 mL/min) 76 L Glucose (70.0 - 110.0 mg/dl) 134 H Calcium (8.0 - 10.5 mg/dl) 8.5 Troponin I (0.00 - 0.06 NG/ML) 0.04 B-Natriuretic Peptide (5 - 100 PG/ML) 670 H Laboratory Tests 10/30 1655 Coagulation INR (0.89 - 1.14) 1.3 H PT Patient/Control Mix (9.9 - 12.8 SECONDS) 15.1 H Laboratory Tests 10/306 Hematology WBC (4.5 - 11.0 K/mm3) 7.7 RBC (4.40 - 5.90 M/mm3) 4.63 Hgb (13.0 - 17.0 gm/dL) 12.9 L Hct (36.0 - 48.0 %) 43.4 MCV (80.0 - 94.0 UM3) 93.7 MCH (25.5 - 32.5 UUG) 27.9 MCHC (29.0 - 35.5 gm/dL) 29.7 RDW (11.5 - 15.0 %) 15.4 H Plt Count (150 - 400 K/mm3) 162 MPV (7.4 - 10.4 fl) 10.7 H Neut % (Auto) (49.0 - 76.0 %) 79.5 H Lymph % (Auto) (23.0 - 38.0 %) 11.7 L Florence % (Auto) (1.0 - 10.0 %) 7.2 Eos % (Auto) (1.0 - 5.0 %) 1.0 Baso % (Auto) (0.0 - 1.0 %) 0.3 Neut # (Auto) (2.4 - 6.3 K/mm3) 6.1 Lymph # (Auto) (1.2 - 4.0 K/mm3) 0.9 L Florence # (Auto) (0.0 - 0.6 K/mm3) 0.6 Eos # (Auto) (0.0 - 0.7 K/MM3) 0.1 Baso # (Auto) (0.0 - 0.2 K/mm3) 0.0 Absolute Nucleated RBC (0.00 - 0.01 X10 3uL) 0.00 Immature Gran % (0.0 - 0.4 %) 0.3 Nucleated RBC % (0.0 - 0.1 %) 0.0 Immature Gran # (0.00 - 0.07 x10 3/uL) 0.02 Laboratory Tests 10/30 1724 Serology SARS-CoV-2 Ag (Rapid) (NEGATIVE) NEGATIVE Radiology Data: Recent Impressions: RADIOLOGY - XR CHEST 1 V 10/30 1642 Report Impression - Status: SIGNED Entered: 10/30/2021 1646 IMPRESSION: Cardiomegaly with mild central pulmonary congestion. Impression By: [email or web address] - Rupal Gunter M.D. Diagnosis, Assessment Plan Free Text DxA P Notes Free Text DxA P Notes: Pulmonary Edema Volume Overload Congestive heart failure exacerbation Hypoxemia, mild. 2/2 above Agree with IV diuresis -Supplemental O2 as needed and wean as tolerated ICD discharge Elevated troponins Coronary artery disease BiV ICD has been interrogated which showed evidence of V. tach, both terminated by ICD shock. -Pending echo -Troponin 0.04, 0.43, 0.59, 0.63 -Plan for lab scientist with cardio DIANNE -BiPAP qhs Hypertension Meds per primary/cardio Tobacco Use -Counselled Thank you for the consult, we will continue to follow the patient with you. Further recommendations will be provided based on clinical course Skip Santos 11/01/21 0821: Attestations Physician Attestation Agree w/findings plan: Seen and examined Agree with plan as outlined above at 2252 at 0821 RPT #:[id number] END OF REPORT [facility] 2021-10-30 20:44:00 [facility] ([facility]) Clinical Note REPORT#:[id number] REPORT STATUS: Signed DATE:10/30/21 TIME: 2043 PATIENT: WILLI MERRITT UNIT #: [id number] ROOM/BED: [place] [address] : [birth year] AGE: 71 SEX: M ATTEND: Juma Rausch MD ADM AUTHOR: Elizabeth David MD * ALL edits or amendments must be made on the electronic/computer document * Clinical Note Note: Cardiology consult dictated #[id number]. at 204 RPT #:[id number] END OF REPORT [facility] 2021-10-30 20:43:00 [id number] [facility] [address] [place] [address] PATIENT NAME: WILLI MERRITT ADMIT DATE: 10/31/21 ACCOUNT NO: [id number] DISCHARGE DATE: 11/01/21 ROOM NO: [facility] REPORT TYPE: CONSULTATION REPORT DATE OF : 54 AGE: 71 SEX: M ADMITTING PHYSICIAN:Juma Rausch MD ATTENDING PHYSICIAN:Lisa Layton MD CONSULTATION DATE: 10/30/2021 CONSULTING PHYSICIAN: Elizabeth David MD CARDIOLOGY CONSULTATION REASON FOR CONSULT: ICD discharge. HISTORY OF PRESENT ILLNESS: The patient is a 71-year-old male patient with past medical history of coronary artery disease, possible history of CHF, Bi-V ICD implant, comes with an ICD discharge. The patient is from [place]. He was visiting [facility] and noted that he got shocked twice this afternoon. He said he had a similar shock about 6 months ago. States he has been taking his medications regularly. Denies any chest pain. Denies any palpitations. Denies any other complaints. PAST MEDICAL HISTORY: 1. Coronary artery disease and history of stents in the past. He says the last stent was more than a few years ago. 2. History of Bi-V ICD implant. The patient says he had the ICD implant done last year. 3. History of CHF. The patient does not remember the ejection fraction, does not remember whether he ever had congestive heart failure. 4. Hypertension. MEDICATIONS: Reviewed from the MAR. Cardiac medications are metoprolol 25 mg b.i.d., amiodarone 400 mg b.i.d., aspirin 81 mg daily, furosemide 40 mg IV b.i.d. ALLERGIES: NO KNOWN DRUG ALLERGIES. SOCIAL HISTORY: No history of current smoking, alcohol abuse, or drug abuse. FAMILY HISTORY: Nothing contributory to current illness. REVIEW OF SYSTEMS: A 14-point review of system performed and negative except what is mentioned above. PHYSICAL EXAMINATION: VITAL SIGNS: Temperature 97.9, pulse 72, respiratory rate 22, and blood pressure is 168/88. GENERAL: The patient is an adult male patient in no acute distress. EYES: No pallor, no icterus. PATIENT NAME: WILLI MERRITT EARS, NOSE AND THROAT: Oral mucosa moist. NECK: No obvious JVD appreciated. CARDIOVASCULAR: S1 and S2 regular. RESPIRATORY: Bilateral air entry fair. Bilateral basal crackles heard. ABDOMEN: Upper abdomen soft, nontender. EXTREMITIES: Pitting pedal edema bilaterally up to the middle of the legs. SKIN: No rashes. HEAD: Atraumatic. LABORATORY DATA: White count 7.7, hemoglobin 12.9, hematocrit 43.4, and platelets 162. Sodium 142, potassium 3.4, chloride 105, bicarbonate 29, BUN 6, creatinine 1.02, and blood sugar is 134. Beta-type natriuretic peptide is 670. COVID-19 is negative. INR is 1.3. ASSESSMENT AND PLAN: A 71-year-old male patient with history of coronary artery disease, hypertension, congestive heart failure, ICD implant, comes with: 1. ICD discharge. Bi-V ICD was interrogated, which showed evidence of V-tach, both terminated by ICD shock. He will likely need further evaluation. We will get an echocardiogram to assess left ventricular function. Depending on the LV function, the patient may need ischemic evaluation. 2. History of coronary artery disease. We will rule out myocardial infarction. We will follow clinically. 3. Krgkr-hw-[id number] systolic heart failure. The patient with significant fluid overload. We will start him on IV diuretics. Continue metoprolol. We will also start him back on lisinopril. 4. Hypertension. Continue home medications. Thank you very much for the consult. We will follow with you. Dictated By: Elizabeth David MD WT: CON:EASHLEE/LEXUS/ALE Conf#: [id number]/DID#: [id number] Authenticated by Elizabeth David On 11/26/2021 01:07:38 PM at 0107 PATIENT NAME: WILLI MERRITT [facility] 2021-10-30 16:26:00 [facility] ([facility]) EMERGENCY PROVIDER REPORT REPORT#:[id number] REPORT STATUS: Signed DATE:10/30/21 TIME: 162 PATIENT: WILLI MERRITT UNIT #: [id number] ROOM/BED: [place] [address] AGE: 71 SEX: M PCP PHYS: No Primary or Family Physician SERVICE AUTHOR: Shara Jackman MD * ALL edits or amendments must be made on the electronic/computer document * HPI-Chest Pain 40 and Over General Initial Greet Date/Time 10/30/21 1613 Presentation Chief Complaint SHOCKED Sudden in Onset? Yes Free Text HPI Notes Free Text HPI Notes Patient with no outside sales associate or doctors in the area presents with his defibrillator going off 2 times today. Patient states this happened a total of 3 times in the past. Patient dates he is compliant with his cardiac medications but does not know the names of any of them. Patient also has a history of COPD emphysema and is on home O2. Patient today was off of his oxygen prior to defibrillator going off. Patient states he was in normal state of health pre and post defibrillation. Patient currently asymptomatic arrives on BiPAP Risk-Chest Pain 40 and Over Risk Stratification )( Coronary Artery Disease Risk factors reviewed )( Thoracic Aortic Dissection Risk factors reviewed )( Pulmonary Embolism Risk factors reviewed )( HEART for MACE )( HEART for MACE Response Value History Mod index of suspicion 1 ECG Interpretation Nonspec repol disturb 1 Age Age 65 or over 2 Risk Factors for CAD 3+ CAD risk factors 2 Troponin < or = to NL troponin 0 Total 6 Review of Systems ROS Statements Complete sys rev neg except as marked. Free Text ROS Notes Free Text ROS Notes General: no distress well-appearing, nontoxic Head: atraumatic, normocephalic Eyes: atraumatic,eomi EENT: PERRLA, MMM, airway patent, atraumatic neck: supple, from, no kernigs, no meningismus Respiratory: equal breath sounds, no dyspnea, no respiratory distress CV:normal heart rate, regular rhythm, no pedal edema, no calf tenderness Abdo: non tender, no rebound Skin: no rash, no petechiae Neuro: A/O x4 normal speech, cranial nerves grossly normal, nonfocal exam Psych: normal mood. normal affect Upper Ext: atraumatic, inspection nl Lower Ext: atraumatic, inspection nl Psych: neg si Musculoskeletal: atraumatic, nl inspection, neg cva tenderness Past Medical History - Adult Stated Complaint sob, defibulator shock Allergies Coded Allergies: No Known Allergies (10/30/21) Smoking status: Smoking status for patients 13 years old or older: Current some day smoker Physical Exam Vital Signs Vital Signs First Documented: Result Date Time Pulse Ox 97 10/30 161 B/P 168/88 10/30 161 B/P Mean 114 10/30 1612 O2 Delivery Room air 10/30 161 Temp 36.6 10/30 1612 Pulse 83 10/30 1612 Resp 10/30 1612 FiO2 50 10/30 1632 Last Documented: Result Date Time Pulse Ox 96 10/30 1632 FiO2 50 10/30 1632 Pulse 81 10/30 1632 O2 Delivery BiPAP 10/30 1632 B/P 168/88 10/30 161 B/P Mean 114 10/30 1612 Temp 36.6 10/30 1612 Resp 10/30 1612 Review of Vital Signs Reviewed, Vital signs abnormal Free Text PE Notes Free Text PE Notes General: no distress well-appearing, nontoxic Head: atraumatic, normocephalic Eyes: atraumatic,eomi EENT: PERRLA, MMM, airway patent, atraumatic neck: supple, from, no kernigs, no meningismus Respiratory: equal breath sounds, no dyspnea, no respiratory distress CV:normal heart rate, regular rhythm, no pedal edema, no calf tenderness Abdo: non tender, no rebound Skin: no rash, no petechiae Neuro: A/O x4 normal speech, cranial nerves grossly normal, nonfocal exam Psych: normal mood. normal affect Upper Ext: atraumatic, inspection nl Lower Ext: atraumatic, inspection nl Psych: neg si Musculoskeletal: atraumatic, nl inspection, neg cva tenderness Interpretation Diagnostics Lab Results Interpretation Results Laboratory Tests 10/30/211655: [Embedded Image Not Available] Laboratory Tests: 10/30 1655 Chemistry Sodium (134.0 - 147.0 mmol/l) 142 Potassium (3.6 - 5.2 mmol/L) 3.4 L Chloride (98.0 - 107.0 mmol/l) 105 Carbon Dioxide (21.0 - 33.0 mmol/l) 29.9 Anion Gap (0 - 20) 10.5 BUN (7.0 - 18.0 mg/dl) 6 L Creatinine (0.60 - 1.30 mg/dL) 1.03 Est GFR ( Amer) (97 - 109 mL/min) 92 L Est GFR (Non-Af Amer) (80 - 90 mL/min) 76 L Glucose (70.0 - 110.0 mg/dl) 134 H Calcium (8.0 - 10.5 mg/dl) 8.5 Troponin I (0.00 - 0.06 NG/ML) 0.04 B-Natriuretic Peptide (5 - 100 PG/ML) 670 H Coagulation INR (0.89 - 1.14) 1.3 H PT Patient/Control Mix (9.9 - 12.8 SECONDS) 15.1 H Hematology WBC (4.5 - 11.0 K/mm3) 7.7 RBC (4.40 - 5.90 M/mm3) 4.63 Hgb (13.0 - 17.0 gm/dL) 12.9 L Hct (36.0 - 48.0 %) 43.4 MCV (80.0 - 94.0 UM3) 93.7 MCH (25.5 - 32.5 UUG) 27.9 MCHC (29.0 - 35.5 gm/dL) 29.7 RDW (11.5 - 15.0 %) 15.4 H Plt Count (150 - 400 K/mm3) 162 MPV (7.4 - 10.4 fl) 10.7 H Neut % (Auto) (49.0 - 76.0 %) 79.5 H Lymph % (Auto) (23.0 - 38.0 %) 11.7 L Florence % (Auto) (1.0 - 10.0 %) 7.2 Eos % (Auto) (1.0 - 5.0 %) 1.0 Baso % (Auto) (0.0 - 1.0 %) 0.3 Neut # (Auto) (2.4 - 6.3 K/mm3) 6.1 Lymph # (Auto) (1.2 - 4.0 K/mm3) 0.9 L Florence # (Auto) (0.0 - 0.6 K/mm3) 0.6 Eos # (Auto) (0.0 - 0.7 K/MM3) 0.1 Baso # (Auto) (0.0 - 0.2 K/mm3) 0.0 Absolute Nucleated RBC (0.00 - 0.01 X10 3uL) 0.00 Immature Gran % (0.0 - 0.4 %) 0.3 Nucleated RBC % (0.0 - 0.1 %) 0.0 Immature Gran # (0.00 - 0.07 x10 3/uL) 0.02 Recent Impressions: RADIOLOGY - XR CHEST 1 V 10/30 1641 Report Impression - Status: SIGNED Entered: 10/30/2021 1646 IMPRESSION: Cardiomegaly with mild central pulmonary congestion. Impression By: Margy7 - Rupal Gunter M.D. Lab Imaging Statement Laboratory radiographic studies reviewed and considered in the medical decision-making. ECG #1 Interpretation Text/Dict Note EKG shows paced rhythm at a rate of 86, no STEMI, positive PVC, interpreted by EDMD, time 1622 Pulse ox 97% on BiPAP manager monitoring shows normal sinus at a rate of 80 time is 4:20 PM Re-Evaluation MDM Re-Evaluation/Progress #1 Text/Dict Note Labs pending Cardiology consulted, request echo and metoprolol p.o. if no recurrent discharge Time of Re-Eval 1707 Re-Eval Status Improved ED Course Medication(s) Ordered Medication(s) Ordered: Anti-Infective Agents Sig/Lala Start time Last Medication Dose Route Stop Time Status Admin Azithromycin 500 MG X1ED STA 10/30 1709 DC 10/30 Sodium Chloride 250 ML IV 10/30 1808 1748 Autonomic Drugs Sig/Lala Start time Last Medication Dose Route Stop Time Status Admin Albuterol/Ipratropium 3 ML RTQ4H 10/30 1900 AC 10/30 NEB 10/31 1607 2035 Cardiovascular Drugs Sig/Lala Start time Last Medication Dose Route Stop Time Status Admin Metoprolol Tartrate 25 MG Q12H 10/30 1715 AC 10/30 PO 11/29 1714 1745 Central Nervous System Agents Sig/Lala Start time Last Medication Dose Route Stop Time Status Admin Acetaminophen 650 MG Q4H PRN PRN 10/30 1715 AC PO 10/31 1607 Aspirin 324 MG X1ED STA 10/30 1625 DC 10/30 PO 10/30 1626 1747 Electrolytic, Caloric, And Sven Sig/Lala Start time Last Medication Dose Route Stop Time Status Admin Dextrose/Water 125 ML ASDIR PRN 10/30 1715 CAN IV 10/31 1607 Dextrose/Water 250 ML ASDIR PRN 10/30 1715 CAN IV 10/31 1607 Dextrose/Water 125 ML ASDIR PRN 10/30 1715 AC IV 10/31 1607 Dextrose/Water 250 ML ASDIR PRN 10/30 1715 AC IV 10/31 1607 Gastrointestinal Drugs Sig/Lala Start time Last Medication Dose Route Stop Time Status Admin Ondansetron HCl 4 MG Q6H PRN PRN 10/30 1715 AC IV 10/31 1607 Hormones And Synthetic Substit Sig/Lala Start time Last Medication Dose Route Stop Time Status Admin Insulin Human Lispro See Dose Q6HR 10/30 1800 AC Insts (1) SUBQ 10/31 1607 Glucagon 1 MG ASDIR PRN 10/30 1715 CAN IM 10/31 1607 Glucagon 1 MG ASDIR PRN 10/30 1715 AC IM 10/31 1607 Dose Instructions: (1)Insulin Human Lispro: SLIDING SCALE Differential Diagnosis Differential Diagnosis Acute coronary syndrome, Acute myocardial infarct Patient Discharge Departure Vital Signs/Condition Vital Signs First Documented: Result Date Time Pulse Ox 97 10/30 1612 B/P 168/88 10/30 1612 B/P Mean 114 10/30 1612 O2 Delivery Room air 10/30 161 Temp 36.6 10/30 1612 Pulse 83 10/30 1612 Resp 22 10/30 1612 FiO2 50 10/30 1632 Last Documented: Result Date Time Pulse Ox 96 10/30 1632 FiO2 50 10/30 163 Pulse 81 10/30 1632 O2 Delivery BiPAP 10/30 163 B/P 168/88 10/30 161 B/P Mean 114 10/30 1612 Temp 36.6 10/30 1612 Resp 22 10/30 1612 All vital signs available at the time of this entry have been reviewed. Clinical Impression Clinical Impression Primary Impression: Defibrillator discharge Secondary Impressions: CHF (congestive heart failure), COPD (chronic obstructive pulmonary disease), Diabetes, Obesity, Oxygen dependent Disposition Decision Admit )( Admission Accepts Yes )( Accepted Time 1709 )( Accepted Date 10/30/21 Discharge/Care Plan Counseled Regarding Diagnosis, Lab results, Imaging studies, Need for admission Hold in ED Note I have spoken with the patient and/or caregivers. I have explained the patient's condition, diagnoses and treatment plan based on the information available to me at this time. I have answered the patient's and/or caregiver's questions and addressed any concerns. The patient and/or caregivers have as good an understanding of the patient's diagnosis, condition and treatment plan as can be expected at this point. The patient has been stabilized within the capability of the emergency department. Although the emergency department has completed all appropriate management and is prepared to transport the patient to an observation or inpatient service, there are no available beds. Therefore the patient will be placed in "ED Hold" status until such time as a bed becomes available. at 2343 RPT #:[id number] END OF REPORT [facility]
[2024-08-11] MEDS ORDERED: ONDANSETRON 4 MG (ODT) TAB PO PRN (20:06)
--- NOTE | 2024-08-11 20:24 | P.HP ---
Certification for Inpatient With expected LOS: <2 Midnights Practitioner: I am a practitioner with admitting privileges, knowledge of patient current condition, hospital course, and medical plan of care. Services: Services provided to patient in accordance with Admission requirements found in Title 42 Section 412.3 of the Code of Federal Regulations Patient History Date of Service: 08/11/24 Reason for admission: heart failure exacerbation, chronic respiratory failure History of Present Illness: 73-year-old man with a past medical history significant for CAD, CHF, DM insulin dependent, HDL, and chronic respiratory failure on home oxygen (6L via nasal cannula) presented to a OSH complaining of shortness of breath. The patient was transferred to [facility] for a higher level of care. The patient is alert, oriented x3 , and is able to talk in complete sentences. The patient states he was getting ready to drive and run some errands, when he mentioned to his neighbor that he was not "feeling right". His neighbor is a nurse, and called 911 on behalf of the patient. The patient received 2 breathing treatments, a dose of ceftriaxone, a dose of Lasix, and insulin at the other facility prior to transfer. Blood cultures were collected prior to antibiotic given. The patient's chest x-ray revealed cardiomegaly and bilateral pleural effusions. A liver ultrasound was also performed and revealed no acute abnormalities. Patient states that he is out of home oxygen, and is requesting assistance with more prior to discharge. Allergies No Known Allergies Allergy (Verified 03/07/22 00:07) Home medications list reviewed: Yes Home Medications: Aspirin [Aspirin EC 81 MG] 81 mg PO DAILY #30 tablet. 03/27/22 Atorvastatin Calcium [Lipitor] 80 mg PO DAILY #30 tab 03/27/22 Clopidogrel Bisulfate [Plavix*] 75 mg PO DAILY #30 tablet 03/27/22 Insulin NPH Human [Novolin N (Humulin N)*] 10 units SQ BIDWM #10 ml 03/27/22 Metformin ER [Glucophage ER*] 500 mg PO BID #60 tab.sa 03/27/22 Spironolactone [Aldactone*] 25 mg PO DAILY 30 Days #30 tab 04/03/22 Fluticasone [Flonase 50MCG Nasal [place]*] 1 sprays YUE PRN PRN 07/23/22 glipiZIDE [Glipizide] 10 mg PO BID 07/23/22 Amiodarone HCl [Cordarone*] 200 mg PO BID 30 Days #60 tab 07/24/22 Codeine/APAP [Tylenol #3*] 1 tab PO Q8HP PRN #10 tab 10/19/22 Insulin NPH Human Isophane [Novolin N Flexpen] 10 unit SQ BIDWM 30 Days #6 ml 10/19/22 Cephalexin [Keflex*] 500 mg PO Q6HR #40 cap 12/12/22 Furosemide [Lasix*] 40 mg PO BID #60 tab 12/12/22 Spironolactone [Aldactone*] 25 mg PO DAILY 30 Days #30 tab 12/12/22 - Past Medical/Surgical History Has patient received pneumonia vaccine in the past: Yes Diabetic: Yes -: HTN -: HLD -: DM insulin-dependent -: CAD -: myocardial infarcation -: Systolic CHF -: COPD on home O2, 5L -: CKD II/ Proteinuria (Dr. Dacosta) -: pacemaker/defibrillator -: cardiac stent x2 -: lumbar laminectomy -: cervical spine surgery Psychosocial/ Personal History: Patient lives at home, alone - Family History Mother -: Kidney disease - Social History Smoking Status: Never smoker Alcohol use: No CD- Drugs: No Caffeine use: Yes Place of Residence: Home Review of Systems Respiratory: Cough, Shortness of Breath Physical Examination - Vital Signs Temperature: 97.2 F Blood Pressure: 98/65 Pulse: 109 Respirations: 20 - Physical Exam General: Alert, Oriented x3 HEENT: Atraumatic, Normocephalic Neck: JVD not distended Respiratory: Crackles/rales Cardiovascular: No gallops, No rubs, No murmurs, Edema Gastrointestinal: Normal bowel sounds, Non-distended Musculoskeletal: Swelling (b/l lower extremities moderately edematous) Neurological: Normal strength at 5/5 x4 extr, Sensation intact Assessment and Plan - Problems (Diagnosis) (1) Chronic respiratory failure Current Visit: Yes Status: Acute Qualifiers: Respiratory failure complication: hypoxia Qualified Code(s): J96.11 - Chronic respiratory failure with hypoxia (2) Acute on chronic diastolic heart failure Current Visit: No Status: Acute (3) T2DM (type 2 diabetes mellitus) Current Visit: No Status: Chronic Qualifiers: Diabetes mellitus jail insulin use: with jail use Diabetes mellitus complication status: with hyperglycemia Qualified Code(s): E11.65 - Type 2 diabetes mellitus with hyperglycemia; Z79.4 - manager long term care (current) use of insulin - Plan Chronic respiratory failure: CXR revealed cardiomegaly and bilateral pleural effusions Continue with 6 L of oxygen via nasal cannula Respiratory therapy consulted CT chest ordered to rule out pulmonary embolism Decompensated heart failure: Cardlogy consulted IV Lasix twice daily Will continue to trend BNP and other lab work Ultrasound of bilateral lower extremities ordered to rule out DVT Echocardiogram ordered Resumed statin DMT2 insulin dependent: On insulin sliding scale - Advance Directives Does patient have a Living Will: No Does patient have a Durable POA for Healthcare: No
[2024-08-11 21:46] LABS: Absolute Basophils 0.1 K/uL (0-0.5); Absolute Eosinophils 0.1 K/uL (0-0.5); Absolute Lymphocytes (CBC) 0.7 K/uL (0.7-4.9); Absolute Monocytes 0.8 K/uL (0.1-1.3); Absolute Neutrophil 6.5 K/uL (1.8-8.0); Basophils % 0.7 % (0-1.3); Hematocrit 38.4 % (39.6-49.0); Hemoglobin 11.3 g/dL (13.6-17.9); Lymphocytes % 8.6 % (15.3-44.8); MCH 24.4 pg (27.0-35.0); MCHC 29.4 g/dL (32.0-36.0); MCV 82.8 fL (80-100); MPV 9.3 fL (7.6-11.3); Monocytes % 10.3 % (3.3-12.3); Neutrophils % 79.4 % (41.7-73.7); Platelets 145 thou/uL (152-406); RBC Red Blood Cell Count 4.63 M/uL (4.33-5.43); Red Cell Distribution Width 21.1 % (12.1-15.2)
[2024-08-11 21:59] LABS: Albumin 3.2 g/dL (3.4-5.0); Albumin/Globulin Ratio 0.7 (1.1-1.8); Anion Gap 9.4 mEq/L (5.0-15.0); Bilirubin Direct 1.8 mg/dL (0-0.2); Bilirubin Indirect, Calculated 1.3 mg/dL (0.2-0.8); Bilirubin Total 3.1 mg/dL (0.2-1.0); Globulin 4.3 g/dL (2.3-3.5); Magnesium 2.1 mg/dL (1.6-2.4); Phosphorus 2.8 mg/dL (2.5-4.9); Potassium 3.4 mEq/L (3.5-5.1); Protein, Total 7.5 g/dL (6.4-8.2); Thyroid Stimulating Hormone 1.05 uIU/mL (0.358-3.740)
[2024-08-11] MEDS: ACETAMINOPHEN 325 MG TABLET PO PRN (22:18)
[2024-08-11] MEDS: ZOLPIDEM TARTRATE 5 MG TABLET PO PRN (22:18)
--- NOTE | 2024-08-11 22:25 | RAD REPORT ---
EXAMINATION: CTA CHEST PE CLINICAL INDICATION: Male, 73 years old. rule out pulmonary embolism TECHNIQUE: This examination was performed according to an angiographic protocol with 3D post-processi ng. This involves 3D reconstructions, MIPs, volume rendered images and/or shaded surface rendering. One or more of the following dose reduction techniques were used: Automated exposure control, adjustm ent of the mA and/or kV according to patient size, and/or iterative reconstruction. Unless otherwise specified, incidental findings do not require dedicated imaging follow-up. [id number]. COMPARISON: No prior chest CT, chest radiograph 12/10/2022 FINDINGS: LOWER NECK: Visualized thyroid gland and soft tissues are normal. LUNGS AND AIRWAYS: Significantly limited due to motion. Suspicious nodule in the right upper lobe lexi suring 16 mm. This may have some calcification centrally but motion limits. A right lower lobe nodule which is along the pleura measures 7 mm. Question intralobular septal thickening but not well evaluated due to motion. PLEURA: No pleural effusion. No pneumothorax. Hemidiaphragms are normally positioned. MEDIASTINUM AND LYMPH NODES: No mediastinal mass or fluid collection. Normal size mediastinal, hilar, and axillary lymph nodes. THORACIC AORTA: Normal caliber and configuration. PULMONARY ARTERIES: No evidence of pulmonary embolism to the level of the segmental pulmonary arterie s. The subsegmental pulmonary arteries are not well evaluated due to motion. Large main pulmonary artery. HEART: Cardiomegaly. Coronary artery calcifications. Pacemaker. No pericardial effusion. No coronary calcifications. OSSEOUS STRUCTURES AND CHEST WALL: Intact. UPPER ABDOMEN: No significant abnormalities. IMPRESSION: No evidence of pulmonary emboli to the segmental level. Evaluation of the lungs is limited due to mot ion. Grossly, no evidence of pneumonia. Mild interstitial edema difficult to exclude. Indeterminate right lung nodules. Recommend 3 month follow-up chest CT.
[2024-08-11] MEDS: POTASSIUM CL SA 10 MEQ TAB PO ONE (22:43)
[2024-08-11] MEDS: HEPARIN 5000 UNIT/ML 1 ML VIAL SQ ONE (22:44)
[2024-08-11] MEDS: PIPER TAZO 2.25 GM in NA CHLORIDE 0.9% 50 ML IV ONE (22:44)
[2024-08-11] MEDS: INSULIN REGULAR (HUMAN) 100 UNIT/ML SQ SCH (22:44)
[2024-08-12] MEDS ORDERED: PIPER TAZO 2.25 GM in NA CHLORIDE 0.9% 50 ML IV SCH (01:00)
[2024-08-12] MEDS ORDERED: HEPARIN 5000 UNIT/ML 1 ML VIAL SQ SCH (01:00)
[2024-08-12] MEDS: NA CHLORIDE 0.9% 250 ML IV PRN (05:29)
[2024-08-12 07:45] LABS: Troponin High Sensitivity 14.6 pg/mL (<58.9)
[2024-08-12] MEDS: FUROSEMIDE 40 MG/4 ML VIAL IV SCH (08:50)
[2024-08-12] MEDS: HEPARIN 5000 UNIT/ML 1 ML VIAL SQ SCH (08:50)
[2024-08-12] MEDS: PIPER TAZO 2.25 GM in NA CHLORIDE 0.9% 50 ML IV SCH (08:50)
[2024-08-12] MEDS: ATORVASTATIN 80 MG TAB PO SCH (08:51)
--- NOTE | 2024-08-12 11:09 | RAD REPORT ---
EXAMINATION: US BILATERAL LOWER EXTREMITY VENOUS DOPPLER CLINICAL INDICATION: rule out dvt TECHNIQUE: Complete bilateral duplex sonography of the BILATERAL lower extremity veins was performed. The examination included compression for vein patency, color Doppler imaging and flow augmentation in response to distal compression of the distal external iliac, common femoral, femoral, popliteal, t ibial, and great and small saphenous veins. COMPARISON: No prior exam. FINDINGS: Duplex sonography testing of the veins of the BILATERAL lower extremity was performed. Color flow sai ging shows all veins to be compressible with [id number] color filling. Pulsatile and phasic flow is present within all lower extremity deep and superficial veins examined. IMPRESSION: There is no deep vein or superficial vein thrombosis.
--- NOTE | 2024-08-12 12:16 | P.PN ---
Subjective Date of Service: 08/12/24 Chief Complaint: heart failure exacerbation, chronic respiratory failure Patient reports no major changes in his shortness of breath compared to yesterday. Patient is maintained on 6 L oxygen by nasal cannula. He denies any chest pain. Physical Examination - Vital Signs Temperature: 97.6 F Blood Pressure: 91/50 Pulse: 92 Respirations: 16 Pulse Ox (%): 98 - Studies Laboratory Data (last 24 hrs) 08/12/24 08/12/24 08/11/24 09:01 07:10 21:20 WBC Hgb Hct Plt Count Sodium 135 L Potassium 4.0 D 3.4 L BUN 17 Creatinine 1.56 H Glucose 224 H Phosphorus 2.8 Magnesium 2.1 Total Bilirubin 3.1 H AST 34 ALT 23 Alkaline Phosphatase 188 H Triglycerides 73 Cholesterol 66 HDL Cholesterol 27 L Cholesterol/HDL Ratio 2.44 08/11/24 21:20 WBC 8.10 Hgb 11.3 L Hct 38.4 L Plt Count 145 L Sodium Potassium BUN Creatinine Glucose Phosphorus Magnesium Total Bilirubin AST ALT Alkaline Phosphatase Triglycerides Cholesterol HDL Cholesterol Cholesterol/HDL Ratio Assessment And Plan - Plan Physical examination General: Alert and oriented x3, NAD, HEENT: Conjunctiva not pale, anicteric sclera Neck: Supple, no elevated JVD Heart: Heart sounds 1 and 2 normal, regular rhythm, normal rate. Lungs: Mild bibasilar Rales, adequate breath sounds bilaterally, no rhonchi or crackles. Abdomen: Soft, protuberant, nontender, normal bowel sounds. Extremities: No tenderness, bilateral lower extremities lymphedema. Skin: Bilateral lower extremity hyperkeratotic skin changes. Neuro: No focal motor deficit. Normal speech. Psychiatry: Normal mood, no agitation. Assessment and plan Acute on chronic diastolic heart failure Acute on chronic respiratory failure with hypoxia. Continue IV Lasix. Monitor intake and output Oxygen weaned to 6 L by nasal cannula which is patient's baseline. Obtain echocardiogram. Monitor electrolytes. Acute COPD exacerbation Scheduled bronchodilators, nebs IV steroid. Hyperbilirubinemia Likely secondary to hepatic congestion from CHF. Monitor LFT. Diabetes mellitus type 2 Insulin sliding scale for glucose management Watch for steroid-induced hyperglycemia. Chronic kidney disease stage III Monitor renal function with diuresis. DVT prophylaxis: Heparin SQ. Advanced directive: Full code.
[2024-08-12] MEDS: ALBUTEROL 2.5 MG/3 ML NEB SOL NEB SCH (12:57)
[2024-08-12] MEDS: IPRATROPIUM BROM 0.5MG/2.5ML NEB SCH (12:57)
[2024-08-12 14:13] LABS: Sqamous Epithelial <5 /HPF (None Seen); Urine Bacteria None Seen /HPF (<20); Urine Bilirubin NEGATIVE (Negative); Urine Blood Negative (Negative); Urine Clarity Clear (Clear); Urine Color Yellow (Yellow); Urine Culture Reflex Order NOT NEEDED; Urine Glucose NEGATIVE (Negative); Urine Ketones NEGATIVE (Negative); Urine Microscopic Reflex YN ORDER UMIC; Urine Mucus Slight /HPF (None Seen); Urine Nitrite NEGATIVE (Negative); Urine Protein TRACE (Negative); Urine RBC <5 /HPF (None Seen); Urine Urobilinogen 1+ (Normal); Urine WBC <5 /HPF (<5); Urine pH 5.5 (5.0-7.0)
[2024-08-12 14:19] LABS: Specific Gravity > 1.030 (1.005-1.030)
[2024-08-12 15:54] LABS: Magnesium 2.1 mg/dL (1.6-2.4); Phosphorus 3.3 mg/dL (2.5-4.9)
[2024-08-12] MEDS: METHYLPREDNISOLONE 40 MG INJ IV SCH (16:16)
[2024-08-13 07:05] LABS: Absolute Lymphocytes (CBC) 0.3 K/uL (0.7-4.9); Absolute Monocytes 0.2 K/uL (0.1-1.3); Absolute Neutrophil 8.6 K/uL (1.8-8.0); Basophils % 0.4 % (0-1.3); Hematocrit 34.5 % (39.6-49.0); Hemoglobin 9.8 g/dL (13.6-17.9); Lymphocytes % 2.9 % (15.3-44.8); MCH 24.2 pg (27.0-35.0); MCHC 28.4 g/dL (32.0-36.0); MCV 85.1 fL (80-100); MPV 10.1 fL (7.6-11.3); Monocytes % 1.7 % (3.3-12.3); Nucleated Red Blood Cells % 0.1 % (0-0); Platelets 103 thou/uL (152-406); RBC Red Blood Cell Count 4.05 M/uL (4.33-5.43); Red Cell Distribution Width 21.3 % (12.1-15.2)
[2024-08-13 07:20] LABS: Albumin 2.7 g/dL (3.4-5.0); Anion Gap 7.6 mEq/L (5.0-15.0); Phosphorus 2.9 mg/dL (2.5-4.9); Potassium 4.6 mEq/L (3.5-5.1); Troponin High Sensitivity 11.5 pg/mL (<58.9)
[2024-08-13 07:56] LABS: Anisocytosis 1+; Blood Morphology Comment NOTED (NOT SEEN); Hypochromasia 2+; Platelet Estimate DECR; Polychromasia 1+; Rouleau NOTED; Target Cells 2+; White Blood Cell Scan OK (OK)
[2024-08-13] MEDS ORDERED: D50W 25 GM/50 ML SYRINGE IV PRN (09:34)
[2024-08-13] MEDS ORDERED: GLUCAGON 1 MG/VIAL IM PRN (09:34)
[2024-08-13] MEDS: INSULIN NPH (HUMAN) 100 UNITS/ML SQ SCH (12:01)
--- NOTE | 2024-08-13 12:38 | P.PN ---
Subjective Date of Service: 08/13/24 Chief Complaint: heart failure exacerbation, chronic respiratory failure Patient seen sitting at the edge of the bed. He is dyspneic with talking. He denies any chest He is maintained on 6 L oxygen by nasal cannula. No change in lower extremity swelling. Physical Examination - Vital Signs Temperature: 98.6 F Blood Pressure: 107/73 Pulse: 101 Respirations: 18 Pulse Ox (%): 93 - Studies Laboratory Data (last 24 hrs) 08/13/24 08/13/24 08/12/24 06:45 06:45 15:34 WBC 9.10 Hgb 9.8 L Hct 34.5 L Plt Count 103 L Sodium 132 L Potassium 4.6 D BUN 20 H Creatinine 1.56 H Glucose 379 H Phosphorus 2.9 3.3 Magnesium 2.1 Assessment And Plan - Plan Physical examination General: Alert and oriented x3, NAD, obese Neck: Supple, no elevated JVD Heart: Heart sounds 1 and 2 normal, regular rhythm, normal rate. Lungs: Mild bibasilar Rales, adequate breath sounds bilaterally, no rhonchi or crackles. Abdomen: Soft, protuberant, nontender, normal bowel sounds. Extremities: No tenderness, bilateral lower extremities lymphedema. Skin: Bilateral lower extremity hyperkeratotic skin changes. Venous stasis ulcers of lower extremities. Neuro: No focal motor deficit. Normal speech. Psychiatry: Normal mood, no agitation. Assessment and plan Acute on chronic diastolic heart failure Acute on chronic respiratory failure with hypoxia. Titrate IV lasix, increase dose to 60 mg twice daily due to no significant response Monitor intake and output Continue oxygen Echocardiogram is pending. Monitor electrolytes. Acute COPD exacerbation Scheduled bronchodilators, nebs Change IV steroids to oral prednisone. Hyperbilirubinemia Likely secondary to hepatic congestion from CHF. Monitor LFT. Diabetes mellitus type 2 Superimposed steroid-induced hyperglycemia. Insulin sliding scale for glucose management Resume home dose NPH insulin. Chronic kidney disease stage III Monitor renal function with diuresis. DVT prophylaxis: Heparin SQ. Advanced directive: Full code.
[2024-08-13] MEDS: FUROSEMIDE 40 MG/4 ML VIAL IV SCH (17:22)
[2024-08-13] MEDS: predniSONE 20 MG TAB PO SCH (21:55)
[2024-08-14] MEDS: hydrOXYzine HCL 25 MG TAB PO ONE (00:34)
[2024-08-14 05:39] LABS: Albumin 2.9 g/dL (3.4-5.0); Anion Gap 6.6 mEq/L (5.0-15.0); Phosphorus 2.4 mg/dL (2.5-4.9); Potassium 4.6 mEq/L (3.5-5.1); Troponin High Sensitivity 10.8 pg/mL (<58.9)
[2024-08-14] MEDS: POTASS/SODIUM PHOSPHATE 1 PKT POWD.PACK PO SCH (07:48)
[2024-08-14] MEDS ORDERED: DIPHENHYDRAMINE 25 MG TAB/CAP PO PRN (09:38)
[2024-08-14] MEDS ORDERED: PETROLATUM (AQUAPHOR) JAR 396 GRAM TOP PRN (09:38)
--- NOTE | 2024-08-14 11:16 | P.CNS ---
Date of Consult: 08/14/24 Chief Complaint: heart failure exacerbation, chronic respiratory failure History of Present Illness: Patient with PMH of obesity, HTN, HLD, CAD, CHF, DM, poor complaince, presented with worsening SOB and bilateral lower extremities edema. he also report chronic lung disease and he is supposed to be on oxygen at home but it was not getting delivered to his house. Allergies No Known Allergies Allergy (Verified 03/07/22 00:07) Home medications list reviewed: Yes Home Medications: Aspirin [Aspirin EC 81 MG] 81 mg PO DAILY #30 tablet.dr 03/27/22 Atorvastatin Calcium [Lipitor] 80 mg PO DAILY #30 tab 03/27/22 Clopidogrel Bisulfate [Plavix*] 75 mg PO DAILY #30 tablet 03/27/22 Insulin NPH Human [Novolin N (Humulin N)*] 10 units SQ BIDWM #10 ml 03/27/22 Metformin ER [Glucophage ER*] 500 mg PO BID #60 tab.sa 03/27/22 Spironolactone [Aldactone*] 25 mg PO DAILY 30 Days #30 tab 04/03/22 Fluticasone [Flonase 50MCG Nasal [place]*] 1 sprays YUE PRN PRN 07/23/22 glipiZIDE [Glipizide] 10 mg PO BID 07/23/22 Amiodarone HCl [Cordarone*] 200 mg PO BID 30 Days #60 tab 07/24/22 Codeine/APAP [Tylenol #3*] 1 tab PO Q8HP PRN #10 tab 10/19/22 Insulin NPH Human Isophane [Novolin N Flexpen] 10 unit SQ BIDWM 30 Days #6 ml 10/19/22 Cephalexin [Keflex*] 500 mg PO Q6HR #40 cap 12/12/22 Furosemide [Lasix*] 40 mg PO BID #60 tab 12/12/22 Spironolactone [Aldactone*] 25 mg PO DAILY 30 Days #30 tab 12/12/22 - Past Medical/Surgical History Diabetic: Yes -: HTN -: HLD -: DM insulin-dependent -: CAD -: myocardial infarcation -: Systolic CHF -: COPD on home O2, 5L -: CKD II/ Proteinuria (Dr. Dacosta) -: pacemaker/defibrillator -: cardiac stent x2 -: lumbar laminectomy -: cervical spine surgery Psychosocial/ Personal History: Patient lives at home, alone - Family History Mother Medical History: Kidney disease - Social History Smoking Status: Current every day smoker Alcohol use: No CD- Drugs: No Caffeine use: Yes Place of Residence: Home Review of Systems 10-point ROS is otherwise unremarkable Physical Examination Temp Pulse Resp BP Pulse Ox 98.6 F 110 H 20 95/61 92 08/14/24 08:00 08/14/24 09:00 08/14/24 08:00 08/14/24 09:00 08/14/24 08:00 General: Alert, In no apparent distress HEENT: Atraumatic, PERRLA, Mucous membr. moist/pink, EOMI, Sclerae nonicteric Neck: Supple, 2+ carotid pulse no bruit, No LAD, Without JVD or thyroid abnormality Respiratory: Clear to auscultation bilaterally, Normal air movement Cardiovascular: Regular rate/rhythm, Normal S1 S2 Gastrointestinal: Normal bowel sounds, No tenderness Musculoskeletal: No tenderness Integumentary: No rashes Neurological: Normal gait, Normal speech, Normal tone, Normal affect Lymphatics: No axilla or inguinal lymphadenopathy Laboratory Data (last 24 hrs) 08/14/24 04:53 Sodium 130 L Potassium 4.6 BUN 26 H Creatinine 1.72 H Glucose 348 H Phosphorus 2.4 L - Problems (1) CHF (congestive heart failure) Current Visit: No Status: Acute Plan: continue Lasix 60 mg IV BID Monitor input and output and electrolytes get Echo Qualifiers: Heart failure type: combined systolic and diastolic Heart failure chronicity: acute on chronic Qualified Code(s): I50.43 - Acute on chronic combined systolic (congestive) and diastolic (congestive) heart failure (2) HLD (hyperlipidemia) Current Visit: No Status: Chronic Plan: Lipitor 40 mg daily Qualifiers: Hyperlipidemia type: mixed hyperlipidemia Qualified Code(s): E78.2 - Mixed hyperlipidemia (3) HTN (hypertension) Current Visit: No Status: Chronic Plan: BP is soft, continue to monitor. Qualifiers: Hypertension type: primary hypertension Qualified Code(s): I10 - Essential (primary) hypertension
--- NOTE | 2024-08-14 13:09 | ECHO ---
HEIGHT: 5 ft 10 in WEIGHT: 240 lb 0 oz DATE OF STUDY: 08/14/[address]: Crista Urias PA-C 2-DIMENSIONAL: YES M.MODE: YES DOPPLER: YES COLOR FLOW: YES TDS: YES PORTABLE: YES DEFINITY: NO BUBBLE STUDY: NO DIAGNOSIS: DECOMPENSATED HEART FAILURE CARDIAC HISTORY: CATHERIZATION: NO SURGERY: NO PROSTHETIC VALVE: NO PACEMAKER: YES MEASUREMENTS (cm) DIASTOLIC (NORMALS) SYSTOLIC (NORMALS) IVSd 1.5 (0.6-1.2) LA Diam 3.2 (1.9-4.0) LVEF 40-45% LVIDd 5.9 (3.5-5.7) LVIDs 4.7 (2.0-3.5) %FS 20% LVPWd 1.5 (0.6-1.2) Ao Diam 3.0 (2.0-3.7) 2 DIMENSIONAL ASSESSMENT: RIGHT ATRIUM: NORMAL LEFT ATRIUM: NOT SEEN RIGHT VENTRICLE: NORMAL LEFT VENTRICLE: NORMAL TRICUSPID VALVE: MILD TRICUSPID REGURGITATION MITRAL VALVE: NORMAL PULMONIC VALVE: NORMAL AORTIC VALVE: NORMAL PERICARDIAL EFFUSION: NONE AORTIC ROOT: NORMAL LEFT VENTRICULAR WALL MOTION: MILD GLOBAL HYPOKINESIS. DOPPLER/COLOR FLOW: DIASTOLIC DYSFUNCTION. COMMENTS: 1. VERY LIMITED STUDY. POOR IMAGES DUE TO BODY HABITUS. 2. MILDLY REDUCED LEFT VENTRICULAR SYSTOLIC FUNCTION. LEFT VENTRICULAR EJECTION FRACTION 40-45%. UNABLE TO ASSESS WALL MOTION. 3. DIASTOLIC DYSFUNCTION. TECHNOLOGIST: [place]
--- NOTE | 2024-08-14 17:36 | P.PN ---
Subjective Date of Service: 08/14/24 Chief Complaint: heart failure exacerbation, chronic respiratory failure Patient is complaining of generalized itching which I suspect this is related to dry skin. He denies any chest He is maintained on 6 L oxygen by nasal cannula. He reports shortness of breath. Physical Examination - Vital Signs Temperature: 97.9 F Blood Pressure: 110/66 Pulse: 110 Respirations: 18 Pulse Ox (%): 93 - Studies Laboratory Data (last 24 hrs) 08/14/24 04:53 Sodium 130 L Potassium 4.6 BUN 26 H Creatinine 1.72 H Glucose 348 H Phosphorus 2.4 L Assessment And Plan - Plan Physical examination General: Alert and oriented x3, NAD Neck: Supple, no elevated JVD Heart: Heart sounds 1 and 2 normal, regular rhythm, normal rate. Lungs: Mild bibasilar Rales, adequate breath sounds bilaterally, no rhonchi or crackles. Abdomen: Soft, nontender, normal bowel sounds. Extremities: No tenderness, bilateral lower extremities lymphedema. Skin: Bilateral lower extremity hyperkeratotic skin changes. Venous stasis ulcers of lower extremities. Neuro: No focal motor deficit. Normal speech. Psychiatry: Normal mood, no agitation. Assessment and plan Acute on chronic diastolic heart failure Acute on chronic respiratory failure with hypoxia. Cardiology Dr. Panda input appreciated. Continue IV Lasix 60 mg twice daily as his BP will tolerate. Monitor intake and output Continue oxygen Echocardiogram is pending. Monitor electrolytes. Acute COPD exacerbation Scheduled bronchodilators, nebs Oral prednisone. Hyperbilirubinemia Likely secondary to hepatic congestion from CHF. Monitor LFT. Diabetes mellitus type 2 Superimposed steroid-induced hyperglycemia. Insulin sliding scale for glucose management Continue home dose NPH insulin and titrate. Chronic kidney disease stage III Serum creatinine trended up Monitor renal function with diuresis. Nephrology consult. Morbid obesity Weight loss by diet and exercise advised. DVT prophylaxis: Heparin SQ. Advanced directive: Full code.
[2024-08-15] MEDS: PIPER TAZO 3.375 GM in NA CHLORIDE 0.9% 100 ML IV SCH (00:35)
[2024-08-15 04:51] VITALS: BMI 36.0
[2024-08-15 05:43] LABS: Absolute Lymphocytes (CBC) 0.6 K/uL (0.7-4.9); Absolute Neutrophil 11.7 K/uL (1.8-8.0); Basophils % 0.1 % (0-1.3); Hematocrit 32.6 % (39.6-49.0); Hemoglobin 9.9 g/dL (13.6-17.9); Lymphocytes % 4.4 % (15.3-44.8); MCH 25.1 pg (27.0-35.0); MCHC 30.3 g/dL (32.0-36.0); MCV 82.8 fL (80-100); MPV 9.4 fL (7.6-11.3); Monocytes % 7.8 % (3.3-12.3); Neutrophils % 87.7 % (41.7-73.7); Platelets 114 thou/uL (152-406); RBC Red Blood Cell Count 3.95 M/uL (4.33-5.43); Red Cell Distribution Width 22.1 % (12.1-15.2)
[2024-08-15 05:53] LABS: Albumin 2.9 g/dL (3.4-5.0); Albumin/Globulin Ratio 0.7 (1.1-1.8); Anion Gap 5.9 mEq/L (5.0-15.0); Bilirubin Direct 0.6 mg/dL (0-0.2); Bilirubin Indirect, Calculated 0.3 mg/dL (0.2-0.8); Bilirubin Total 0.9 mg/dL (0.2-1.0); Phosphorus 2.5 mg/dL (2.5-4.9); Potassium 4.9 mEq/L (3.5-5.1); Protein, Total 6.9 g/dL (6.4-8.2)
--- NOTE | 2024-08-15 07:09 | P.PN ---
Date of Service: 08/15/24 Subjective: feeling better today breathing feels slightly easier today urine output improving approved for home oxygen ROS: 10 point ROS as noted above, otherwise negative Physical Exam: GEN: Alert, NAD HEENT: Normal conjunctiva, sclera anicteric CV: tachycardia, , bilateral lower extremities lymphedema Pulm: tachypnea, with mild labored respirations on 6L HFNC at rest, diminished bilaterally ABD: soft, nontender, nondistended Integumentary: Bilateral lower extremity hyperkeratotic skin changes. Venous stasis ulcers of lower extremities Neuro: Normal speech, normal affect Problem List: Acute on chronic diastolic CHF (40-45% EF) Acute on chronic COPD exacerbation (on ~6L home O2) Acute on chronic hypoxic respiratory failure secondary to above Hyperbilirubinemia IDDM2 CKD3 Hx CAD s/p PCI Hypertension Hyperlipidemia Acute on chronic diastolic CHF (40-45% EF) Acute on chronic COPD exacerbation (on ~6L home O2) Acute on chronic hypoxic respiratory failure secondary to above on admission, presents with worsening dyspnea. Has history of CHF/COPD and uses 6L NC at home chronically. Patient was seen at OSH and transferred here [facility]. CXR at OSH revealed bilateral pleural effusions, cardiomegaly. CTA chest (08/11): negative for PE. Evaluation limited d/t motion. No evidence of Pneumonia. Mild interstitial edema. venous u/s (08/11): no DVT in lower extremities echo (08/11): 40-45%EF, diastolic dysfunction. (limited study d/t body habitus) Cardiology consulted continue IV lasix BID as BP allows; Lasix held yesterday d/t soft BP continue empiric zosyn for now (08/12-); started on admission to cover possible infection no evidence of infection. suspect leukocytosis reactive to steroids. continue PO prednisone, duonebs Right lung nodules; incidental finding CTA chest incidentally noted indeterminate age right lung nodules (16mm, 7mm) recommend continued monitoring with repeat CT in ~3 months Hyperbilirubinemia Suspect secondary to hepatic congestion from CHF. Liver ultrasound at OSH was negative for any acute abnormalities Monitor LFTs - improving IDDM2 hyperglycemia secondary to steroid use accu-cheks, SSI continue home insulin. Titrate as needed CKD3 Nephrology consulted Stable continue to monitor renal function Hypertension confirm home meds. Hold for now given BP low/normal Monitor BP while being diuresed Hyperlipidemia resume home statin VTE: heparin sq Code: Full Dispo: Home ~1-2 days Pending further diuresis Reportedly ran out of oxygen at home. Requires assistance to reestablish services prior to DC. approved for home O2 08/15 Time Spent Managing Pts Care (In Minutes): 51
--- NOTE | 2024-08-15 07:52 | P.CNS ---
Date of Consult: 08/15/24 Reason for Consult: CKD Requesting Physician: Frank Taveras Chief Complaint: heart failure exacerbation, chronic respiratory failure History of Present Illness: 73-year-old man with a past medical history significant for CAD, CHF, DM insulin dependent, HDL, and chronic respiratory failure on home oxygen (6L via nasal cannula) presented to a OSH complaining of shortness of breath. The patient was transferred to [facility] for a higher level of care. The patient is alert, oriented x3 , and is able to talk in complete sentences. The patient states he was getting ready to drive and run some errands, when he me ntioned to his neighbor that he was not "feeling right". His neighbor is a nurse, and called 911 on behalf of the patient. The patient received 2 breathing treatments, a dose of ceftriaxone, a dose of Lasix, and insulin at the other facility prior to transfer. Blood cultures were collected prior to antibiotic given. The patient's chest x-ray revealed cardiomegaly and bilateral pleural effusions. A liver ultrasound was also performed and revealed no acute abnormalities. Patient states that he is out of home oxygen, and is requesting assistance with more prior to discharge. Allergies No Known Allergies Allergy (Verified 03/07/22 00:07) Home medications list reviewed: Yes Home Medications: Aspirin [Aspirin EC 81 MG] 81 mg PO DAILY #30 tablet.dr 03/27/22 Atorvastatin Calcium [Lipitor] 80 mg PO DAILY #30 tab 03/27/22 Clopidogrel Bisulfate [Plavix*] 75 mg PO DAILY #30 tablet 03/27/22 Insulin NPH Human [Novolin N (Humulin N)*] 10 units SQ BIDWM #10 ml 03/27/22 Metformin ER [Glucophage ER*] 500 mg PO BID #60 tab.sa 03/27/22 Spironolactone [Aldactone*] 25 mg PO DAILY 30 Days #30 tab 04/03/22 Fluticasone [Flonase 50MCG Nasal [place]*] 1 sprays YUE PRN PRN 07/23/22 glipiZIDE [Glipizide] 10 mg PO BID 07/23/22 Amiodarone HCl [Cordarone*] 200 mg PO BID 30 Days #60 tab 07/24/22 Codeine/APAP [Tylenol #3*] 1 tab PO Q8HP PRN #10 tab 10/19/22 Insulin NPH Human Isophane [Novolin N Flexpen] 10 unit SQ BIDWM 30 Days #6 ml 10/19/22 Cephalexin [Keflex*] 500 mg PO Q6HR #40 cap 12/12/22 Furosemide [Lasix*] 40 mg PO BID #60 tab 12/12/22 Spironolactone [Aldactone*] 25 mg PO DAILY 30 Days #30 tab 12/12/22 - Past Medical/Surgical History Diabetic: Yes -: HTN -: HLD -: DM insulin-dependent -: CAD -: myocardial infarcation -: Systolic CHF -: COPD on home O2, 5L -: CKD II/ Proteinuria (Dr. Dacosta) -: pacemaker/defibrillator -: cardiac stent x2 -: lumbar laminectomy -: cervical spine surgery Psychosocial/ Personal History: Patient lives at home, alone - Family History Mother Medical History: Kidney disease - Social History Smoking Status: Current every day smoker Alcohol use: No CD- Drugs: No Caffeine use: Yes Place of Residence: Home Review of Systems 10-point ROS is otherwise unremarkable Respiratory: SOB with Excertion Cardiovascular: Edema Physical Examination Temp Pulse Resp BP Pulse Ox 97.3 F 111 H 20 138/77 97 08/15/24 04:00 08/15/24 04:00 08/15/24 04:00 08/15/24 04:00 08/15/24 04:00 General: In no apparent distress, Oriented x3, Cooperative HEENT: Atraumatic Neck: Supple Respiratory: Diminished Cardiovascular: Regular rate/rhythm, Edema Gastrointestinal: Soft and benign, Non-distended Musculoskeletal: No clubbing, No contractures Integumentary: No cyanosis Neurological: Normal speech Laboratory Data (last 24 hrs) 08/15/24 08/15/24 05:09 05:09 WBC 13.40 H Hgb 9.9 L Hct 32.6 L Plt Count 114 L Sodium 131 L Potassium 4.9 BUN 24 H Creatinine 1.27 Glucose 237 H Phosphorus 2.5 Total Bilirubin 0.9 AST 34 ALT 24 Alkaline Phosphatase 170 H Imagings Data: [id number] EXAMINATION: CTA CHEST PE CLINICAL INDICATION: Male, 73 years old. rule out pulmonary embolism TECHNIQUE: This examination was performed according to an angiographic protocol with 3D post-processing. This involves 3D reconstructions, MIPs, volume rendered images and/or shaded surface rendering. One or more of the following dose reduction techniques were used: Automated exposure control, adjustment of the mA and/or kV according to patient size, and/or iterative reconstruction. Unless otherwise specified, incidental findings do not require dedicated imaging follow-up. [id number]. COMPARISON: No prior chest CT, chest radiograph 12/10/2022 FINDINGS: LOWER NECK: Visualized thyroid gland and soft tissues are normal. LUNGS AND AIRWAYS: Significantly limited due to motion. Suspicious nodule in the right upper lobe measuring 16 mm. This may have some calcification centrally but motion limits. A right lower lobe nodule which is along the pleura measures 7 mm. Question intralobular septal thickening but not well evaluated due to motion. PLEURA: No pleural effusion. No pneumothorax. Hemidiaphragms are normally positioned. MEDIASTINUM AND LYMPH NODES: No mediastinal mass or fluid collection. Normal size mediastinal, hilar, and axillary lymph nodes. THORACIC AORTA: Normal caliber and configuration. PULMONARY ARTERIES: No evidence of pulmonary embolism to the level of the segmental pulmonary arteries. The subsegmental pulmonary arteries are not well evaluated due to motion. Large main pulmonary artery. HEART: Cardiomegaly. Coronary artery calcifications. Pacemaker. No pericardial effusion. No coronary calcifications. OSSEOUS STRUCTURES AND CHEST WALL: Intact. UPPER ABDOMEN: No significant abnormalities. IMPRESSION: No evidence of pulmonary emboli to the segmental level. Evaluation of the lungs is limited due to motion. Grossly, no evidence of pneumonia. Mild interstitial edema difficult to exclude. Indeterminate right lung nodules. Recommend 3 month follow-up chest CT. [id number] LEFT VENTRICULAR WALL MOTION: MILD GLOBAL HYPOKINESIS. DOPPLER/COLOR FLOW: DIASTOLIC DYSFUNCTION. COMMENTS: 1. VERY LIMITED STUDY. POOR IMAGES DUE TO BODY HABITUS. 2. MILDLY REDUCED LEFT VENTRICULAR SYSTOLIC FUNCTION. LEFT VENTRICULAR EJECTION FRACTION 40-45%. UNABLE TO ASSESS WALL MOTION. 3. DIASTOLIC DYSFUNCTION. [id number] EXAMINATION: US BILATERAL LOWER EXTREMITY VENOUS DOPPLER CLINICAL INDICATION: rule out dvt TECHNIQUE: Complete bilateral duplex sonography of the BILATERAL lower extremity veins was performed. The examination included compression for vein patency, color Doppler imaging and flow augmentation in response to distal compression of the distal external iliac, common femoral, femoral, popliteal, tibial, and great and small saphenous veins. COMPARISON: No prior exam. FINDINGS: Duplex sonography testing of the veins of the BILATERAL lower extremity was performed. Color flow imaging shows all veins to be compressible with [id number] color filling. Pulsatile and phasic flow is present within all lower extremity deep and superficial veins examined. IMPRESSION: There is no deep vein or superficial vein thrombosis. Conclusions/Impression: Stage I LEELA may be CRS CKD II with Proteinuria -No NSAIDs -Continue diuresis Hyponatremia -Continue Lasix Hypotension -Consider midodrine Diastolic CHF, A/C -Continue Lasix DM II with CKD -RISS -Wean prednisone as tolerated Hypoalbuminemia -Consider protein supplmentation Anemia in chronic illness Microcytosis -Monitor H&H Hospitalist note reviewed
[2024-08-15] MEDS: POTASS/SODIUM PHOSPHATE 1 PKT POWD.PACK PO SCH (08:01)
--- NOTE | 2024-08-15 11:45 | P.PN ---
Subjective Date of Service: 08/15/24 Chief Complaint: heart failure exacerbation, chronic respiratory failure Subjective: No new changes, No C/O voiced, Tolerating diet, Ambulating, Improving Review of Systems 10-point ROS is otherwise unremarkable Physical Examination - Vital Signs Temperature: 97.4 F Blood Pressure: 111/70 Pulse: 108 Respirations: 18 Pulse Ox (%): 94 - Physical Exam General: Alert, In no apparent distress HEENT: Atraumatic, PERRLA, EOMI Neck: Supple, JVD not distended Respiratory: Clear to auscultation bilaterally, Normal air movement Cardiovascular: Regular rate/rhythm, Normal S1 S2 Gastrointestinal: Normal bowel sounds, No tenderness Musculoskeletal: No tenderness Integumentary: No rashes Neurological: Normal speech, Normal tone, Normal affect Lymphatics: No axilla or inguinal lymphadenopathy - Studies Laboratory Data (last 24 hrs) 08/15/24 08/15/24 05:09 05:09 WBC 13.40 H Hgb 9.9 L Hct 32.6 L Plt Count 114 L Sodium 131 L Potassium 4.9 BUN 24 H Creatinine 1.27 Glucose 237 H Phosphorus 2.5 Total Bilirubin 0.9 AST 34 ALT 24 Alkaline Phosphatase 170 H Medications List Reviewed: Yes Assessment And Plan - Current Problems (Diagnosis) (1) CHF (congestive heart failure) Current Visit: No Status: Acute Plan: continue Lasix 60 mg IV BID Monitor input and output and electrolytes Qualifiers: Heart failure type: combined systolic and diastolic Heart failure chronicity: acute on chronic Qualified Code(s): I50.43 - Acute on chronic combined systolic (congestive) and diastolic (congestive) heart failure (2) HLD (hyperlipidemia) Current Visit: No Status: Chronic Plan: Lipitor 40 mg daily Qualifiers: Hyperlipidemia type: mixed hyperlipidemia Qualified Code(s): E78.2 - Mixed hyperlipidemia (3) HTN (hypertension) Current Visit: No Status: Chronic Plan: BP is soft, continue to monitor. Qualifiers: Hypertension type: primary hypertension Qualified Code(s): I10 - Essential (primary) hypertension
--- NOTE | 2024-08-15 15:30 | RAD REPORT ---
EXAMINATION: ONE VIEW CHEST XR CLINICAL INDICATION: hypoxia TECHNIQUE: Frontal chest projection is submitted. Examination is limited by patient positioning and t echnique. COMPARISON: 12/10/2022 FINDINGS: Moderate bilateral pulmonary opacities compatible with pulmonary edema. Small nodular focus noted rig ht midlung. The heart is moderately enlarged in size. No displaced fractures identified. Multilead pacer/defibrillator device present. IMPRESSION: Moderate CHF. Nodular focus right midlung.
[2024-08-15 16:13] LABS: Troponin High Sensitivity 15.1 pg/mL (<58.9)
[2024-08-15] MEDS ORDERED: PIPER TAZO 3.375 GM in NA CHLORIDE 0.9% 100 ML IV SCH (17:30)
[2024-08-15] MEDS: FUROSEMIDE 40 MG TABLET PO SCH (17:44)
[2024-08-15 22:27] LABS: Ferritin 20.3 ng/mL (26-388)
[2024-08-16 07:07] LABS: Hematocrit 35.2 % (39.6-49.0); Hemoglobin 10.5 g/dL (13.6-17.9); MCH 25.3 pg (27.0-35.0); MCHC 29.8 g/dL (32.0-36.0); MCV 84.8 fL (80-100); MPV 10.1 fL (7.6-11.3); Platelets 114 thou/uL (152-406); RBC Red Blood Cell Count 4.15 M/uL (4.33-5.43)
[2024-08-16 07:24] LABS: Anion Gap 7.1 mEq/L (5.0-15.0); Phosphorus 2.5 mg/dL (2.5-4.9); Potassium 5.1 mEq/L (3.5-5.1); Uric Acid 5.4 mg/dL (3.5-7.2)
[2024-08-16 08:52] VITALS: O2SAT 90
[2024-08-16 08:55] VITALS: BP 138/86; TEMP 97.2
--- NOTE | 2024-08-16 10:02 | P.DS ---
Admission Date: 08/11/24 Discharge Date: 08/16/24 Reason for Admission: heart failure exacerbation, chronic respiratory failure Consultations: Cardiology - Dr. Panda Nephrology - Dr. De Santiago Brief History of Present Illness: 73 yo M, PMH:CAD, CHF, DM insulin dependent, HDL, and chronic respiratory failure on home oxygen (6L via nasal cannula) Patient presented to a OSH complaining of shortness of breath. The patient was transferred to [facility] for a higher level of care. The patient is alert, oriented x3 , and is able to talk in complete sentences. The patient states he was getting ready to drive and run some errands, when he mentioned to his neighbor that he was not "feeling right". His neighbor is a nurse, and called 911 on behalf of the patient. The patient received 2 breathing treatments, a dose of ceftriaxone, a dose of Lasix, and insulin at the other facility prior to transfer. Blood cultures were collected prior to antibiotic given. The patient's chest x-ray revealed cardiomegaly and bilateral pleural effusions. A liver ultrasound was also performed and revealed no acute abnormalities. Patient states that he is out of home oxygen, and is requesting assistance with more prior to discharge. Hospital Course: Problem List: Acute on chronic diastolic CHF (40-45% EF) Acute on chronic COPD exacerbation (on ~6L home O2) Acute on chronic hypoxic respiratory failure secondary to above Hyperbilirubinemia, improved IDDM2 CKD3 Hx CAD s/p PCI Hypertension Hyperlipidemia Physician discharge instructions: Patient presented with worsening shortness of breath. Multifactorial etiology secondary to acute on chronic CHF exacerbations and component of acute on chronic COPD. He was seen at OSH prior to admission. Chest xray at OSH noted b ilateral pleural effusions, cardiomegaly. CTA chest done here was negative for PE, did note some mild interstitial edema. Venous ultrasound was negative for any DVT. Echocardiogram was limited due to patient body habitus but did note 40-45% EF, diastolic dysfunction. Reportedly similar to prior results. Cardiology and nephrology were consulted. Patient had improvement of his symptoms with lasix, steroids, nebs. Discussed with nephrology, recommend continuing oral lasix 80 mg twice daily on discharge. Advised close follow up with nephrology in ~3 days. Patient reports he will schedule appointment with Dr. Dacosta Patient was feeling better, wanting to go home, breathing more comfortably on his home oxygen settings (6L). He did appear to have some mild labored respirations with mild activity, but stated this was his normal and he was adamant about going home. Discussed the importance of medication adherence and follow up appointments. He was unable to provide a home medication list. Reviewed med list from ~1 year ago when last admitted here. Discussed if he is still taking spironolactone, to stop that for now, until further recommendations from nephrology. For now, in regards to diuretics - he is to continue on 80mg lasix twice daily. He also received zosyn as a precaution to cover possible infection/pneumonia. There was no obvious evidence of infection. Patient remained afebrile throughout hospitalization. Suspect mild leukocytosis reactive to steroids. No further antibiotics warranted on discharge. During his hospitalization, patient reported he ran out of oxygen as would need to re-establish oxygen services prior to discharge. Case management was consulted for assistance and patient approved for home oxygen 08/15. CTA chest incidentally noted indeterminate age right lung nodules (16mm, 7mm). Follow up with PCP for further discussion and consider repeating CT chest in ~3 month for continued monitoring. Medications: lasix 80mg twice a day stop spironolactone continue other home medications as previously prescribed Take medications / med list to follow up appointments. Follow up: PCP 3-5 days Cardiology 2-4 weeks Nephrology in 1 week Please call to schedule / confirm appointments Physical Exam: GEN: Alert, NAD, orientedx3 HEENT: Normal conjunctiva, sclera anicteric CV: sinus tachycardia, bilateral lower extremities lymphedema Pulm: nonlabored respirations on 6L NC at rest (home O2 setting) ABD: soft, nontender, nondistended Integumentary: Bilateral lower extremity hyperkeratotic skin changes. Venous stasis ulcers of lower extremities Neuro: Normal speech, normal affect Vital Signs/Physical Exam: Temp Pulse Resp BP Pulse Ox 97.2 F 106 H 40 H 138/86 99 08/16/24 08:00 08/16/24 08:00 08/16/24 08:00 08/16/24 08:00 08/16/24 08:00 Laboratory Data at Discharge: WBC 10.50 thou/uL (4.3-10.9) 08/16/24 06:43 Hgb 10.5 g/dL (13.6-17.9) L 08/16/24 06:43 Hct 35.2 % (39.6-49.0) L 08/16/24 06:43 Plt Count 114 thou/uL (152-406) L 08/16/24 06:43 Sodium 129 mEq/L (136-145) L 08/16/24 06:43 Potassium 5.1 mEq/L (3.5-5.1) 08/16/24 06:43 BUN 27 mg/dL (7-18) H 08/16/24 06:43 Creatinine 1.38 mg/dL (0.70-1.30) H 08/16/24 06:43 Glucose 423 mg/dL (74-106) H* 08/16/24 06:43 Uric Acid 5.4 mg/dL (3.5-7.2) 08/16/24 06:43 Phosphorus 2.5 mg/dL (2.5-4.9) 08/16/24 06:43 Magnesium 2.1 mg/dL (1.6-2.4) 08/12/24 15:34 Total Bilirubin 0.9 mg/dL (0.2-1.0) 08/15/24 05:09 AST 34 U/L (15-37) 08/15/24 05:09 ALT 24 U/L (16-61) 08/15/24 05:09 Alkaline Phosphatase 170 U/L (45-117) H 08/15/24 05:09 Triglycerides 73 mg/dL (<150) 08/12/24 07:10 Cholesterol 66 mg/dL (<200) 08/12/24 07:10 HDL Cholesterol 27 mg/dL (40-60) L 08/12/24 07:10 Cholesterol/HDL Ratio 2.44 08/12/24 07:10 Home Medications: Aspirin [Aspirin EC 81 MG] 81 mg PO DAILY #30 tablet. 03/27/22 Atorvastatin Calcium [Lipitor] 80 mg PO DAILY #30 tab 03/27/22 Clopidogrel Bisulfate [Plavix*] 75 mg PO DAILY #30 tablet 03/27/22 Insulin NPH Human [Novolin N (Humulin N)*] 10 units SQ BIDWM #10 ml 03/27/22 Metformin ER [Glucophage ER*] 500 mg PO BID #60 tab.sa 03/27/22 Spironolactone [Aldactone*] 25 mg PO DAILY 30 Days #30 tab 04/03/22 Fluticasone [Flonase 50MCG Nasal [place]*] 1 sprays YUE PRN PRN 07/23/22 glipiZIDE [Glipizide] 10 mg PO BID 07/23/22 Amiodarone HCl [Cordarone*] 200 mg PO BID 30 Days #60 tab 07/24/22 Codeine/APAP [Tylenol #3*] 1 tab PO Q8HP PRN #10 tab 10/19/22 Insulin NPH Human Isophane [Novolin N Flexpen] 10 unit SQ BIDWM 30 Days #6 ml 10/19/22 Cephalexin [Keflex*] 500 mg PO Q6HR #40 cap 12/12/22 Furosemide [Lasix*] 40 mg PO BID #60 tab 12/12/22 Spironolactone [Aldactone*] 25 mg PO DAILY 30 Days #30 tab 12/12/22 Furosemide [Lasix*] 80 mg PO BIDL 30 Days #120 tab 08/16/24 New Medications: Furosemide [Lasix*] 80 mg PO BIDL 30 Days #120 tab Physician Discharge Instructions: Physician discharge instructions: Patient presented with worsening shortness of breath. Multifactorial etiology secondary to acute on chronic CHF exacerbations and component of acute on chronic COPD. He was seen at OSH prior to admission. Chest xray at OSH noted bilateral pleural effusions, cardiomegaly. CTA chest done here was negative for PE, did note some mild interstitial edema. Venous ultrasound was negative for any DVT. Echocardiogram was limited due to patient body habitus but did note 40-45% EF, diastolic dysfunction. Reportedly similar to prior results. Cardiology and nephrology were consulted. Patient had improvement of his symptoms with lasix, steroids, nebs. Discussed with nephrology, recommend continuing oral lasix 80 mg twice daily on discharge. Advised close follow up with nephrology in ~3 days. Patient reports he will schedule appointment with Dr. Dacosta Patient was feeling better, wanting to go home, breathing more comfortably on his home oxygen settings (6L). He did appear to have some mild labored respirations with mild activity, but stated this was his normal and he was adamant about going home. Discussed the importance of medication adherence and follow up appointments. He was unable to provide a home medication list. Reviewed med list from ~1 year ago when last admitted here. Discussed if he is still taking spironolactone, to stop that for now, until further recommendations from nephrology. For now, in regards to diuretics - he is to continue on 80mg lasix twice daily. He also received zosyn as a precaution to cover possible infection/pneumonia. There was no obvious evidence of infection. Patient remained afebrile throughout hospitalization. Suspect mild leukocytosis reactive to steroids. No further antibiotics warranted on discharge. During his hospitalization, patient reported he ran out of oxygen as would need to re-establish oxygen services prior to discharge. Case management was consulted for assistance and patient approved for home oxygen 08/15. CTA chest incidentally noted indeterminate age right lung nodules (16mm, 7mm). Follow up with PCP for further discussion and consider repeating CT chest in ~3 month for continued monitoring. Medications: lasix 80mg twice a day stop spironolactone continue other home medications as previously prescribed Take medications / med list to follow up appointments. Follow up: PCP 3-5 days Cardiology 2-4 weeks Nephrology in 1 week Please call to schedule / confirm appointments Followup: Sherice Mariscal NP [Primary Care Provider] -
[2024-08-16] MEDS: INSULIN REGULAR (HUMAN) 100 UNIT/ML SQ SCH (11:16)
[2024-08-16] MEDS ORDERED: INSULIN REGULAR (HUMAN) 100 UNIT/ML SQ ONE (11:45)
--- NOTE | 2024-08-16 21:52 | P.PN ---
Date of Service: 08/16/24 Vital Signs Temp Pulse Resp BP Pulse Ox 97.2 F 106 H 40 H 138/86 99 08/16/24 08:00 08/16/24 08:00 08/16/24 08:00 08/16/24 08:00 08/16/24 08:00 Lab Results (last 24 hrs) 08/16/24 11:08: POC Glucose 330 H 08/16/24 07:35: POC Glucose 388 H 08/16/24 06:43: WBC 10.50, RBC 4.15 L, Hgb 10.5 L, Hct 35.2 L, MCV 84.8, MCH 25.3 L, MCHC 29.8 L, RDW 24.0 H, Plt Count 114 L, MPV 10.1 08/16/24 06:43: Troponin I High Sens 13.8 08/16/24 06:43: Sodium 129 L, Potassium 5.1, Chloride 89 L, Carbon Dioxide 38 H, Anion Gap 7.1, BUN 27 H, Creatinine 1.38 H, Est GFR (CKD-EPI) 55 L, Glucose 423 H*, Uric Acid 5.4, Calcium 8.5, Phosphorus 2.5 08/15/24 22:43: Troponin I High Sens 13.6 08/15/24 15:39: Iron 20.0 L, TIBC 367, Transferrin 262, Transferrin % Sat 5.4 L, Ferritin 20.3 L, Troponin I High Sens 15.1 Assessment/ Plan: Nephrology No dyspnea No chest pain No acute events overnight Vitals, medications, blood work and imaging reviewed in the chart General: In no apparent distress, Oriented x3, Cooperative HEENT: Atraumatic Neck: Supple Respiratory: Diminished Cardiovascular: Regular rate/rhythm, Edema Gastrointestinal: Soft and benign, Non-distended Musculoskeletal: No clubbing, No contractures Integumentary: No cyanosis Neurological: Normal speech Laboratory Data (last 24 hrs) 08/15/24 08/15/24 05:09 05:09 WBC 13.40 H Hgb 9.9 L Hct 32.6 L Plt Count 114 L Sodium 131 L Potassium 4.9 BUN 24 H Creatinine 1.27 Glucose 237 H Phosphorus 2.5 Total Bilirubin 0.9 AST 34 ALT 24 Alkaline Phosphatase 170 H Imagings Data: [id number] EXAMINATION: CTA CHEST PE CLINICAL INDICATION: Male, 73 years old. rule out pulmonary embolism TECHNIQUE: This examination was performed according to an angiographic protocol with 3D post-processing. This involves 3D reconstructions, MIPs, volume rendered images and/or shaded surface rendering. One or more of the following dose reduction techniques were used: Automated exposure control, adjustment of the mA and/or kV according to patient size, and/or iterative reconstruction. Unless otherwise specified, incidental findings do not require dedicated imaging follow-up. [id number]. COMPARISON: No prior chest CT, chest radiograph 12/10/2022 FINDINGS: LOWER NECK: Visualized thyroid gland and soft tissues are normal. LUNGS AND AIRWAYS: Significantly limited due to motion. Suspicious nodule in the right upper lobe measuring 16 mm. This may have some calcification centrally but motion limits. A right lower lobe nodule which is along the pleura measures 7 mm. Question intralobular septal thickening but not well evaluated due to motion. PLEURA: No pleural effusion. No pneumothorax. Hemidiaphragms are normally positioned. MEDIASTINUM AND LYMPH NODES: No mediastinal mass or fluid collection. Normal size mediastinal, hilar, and axillary lymph nodes. THORACIC AORTA: Normal caliber and configuration. PULMONARY ARTERIES: No evidence of pulmonary embolism to the level of the segmental pulmonary arteries. The subsegmental pulmonary arteries are not well evaluated due to motion. Large main pulmonary artery. HEART: Cardiomegaly. Coronary artery calcifications. Pacemaker. No pericardial effusion. No coronary calcifications. OSSEOUS STRUCTURES AND CHEST WALL: Intact. UPPER ABDOMEN: No significant abnormalities. IMPRESSION: No evidence of pulmonary emboli to the segmental level. Evaluation of the lungs is limited due to motion. Grossly, no evidence of pneumonia. Mild interstitial edema difficult to exclude. Indeterminate right lung nodules. Recommend 3 month follow-up chest CT. [id number] LEFT VENTRICULAR WALL MOTION: MILD GLOBAL HYPOKINESIS. DOPPLER/COLOR FLOW: DIASTOLIC DYSFUNCTION. COMMENTS: 1. VERY LIMITED STUDY. POOR IMAGES DUE TO BODY HABITUS. 2. MILDLY REDUCED LEFT VENTRICULAR SYSTOLIC FUNCTION. LEFT VENTRICULAR EJECTION FRACTION 40-45%. UNABLE TO ASSESS WALL MOTION. 3. DIASTOLIC DYSFUNCTION. [id number] EXAMINATION: US BILATERAL LOWER EXTREMITY VENOUS DOPPLER CLINICAL INDICATION: rule out dvt TECHNIQUE: Complete bilateral duplex sonography of the BILATERAL lower extremity veins was performed. The examination included compression for vein patency, color Doppler imaging and flow augmentation in response to distal compression of the distal external iliac, common femoral, femoral, popliteal, tibial, and great and small saphenous veins. COMPARISON: No prior exam. FINDINGS: Duplex sonography testing of the veins of the BILATERAL lower extremity was performed. Color flow imaging shows all veins to be compressible with [id number] color filling. Pulsatile and phasic flow is present within all lower extremity deep and superficial veins examined. IMPRESSION: There is no deep vein or superficial vein thrombosis. Conclusions/Impression: Stage I LEELA may be CRS CKD II with Proteinuria -No NSAIDs -Continue diuresis Hyponatremia -Continue Lasix Hypotension -Consider midodrine Diastolic CHF, A/C -Continue Lasix DM II with CKD -RISS -Wean prednisone as tolerated Hypoalbuminemia -Consider protein supplmentation Anemia in chronic illness Iron Deficiency 5.4% -Monitor H&H -Recommend iron supplementation Hospitalist note reviewed Case reviewed with Dr. Taveras
== END 2024-08-16 13:02 | disposition home or self-care (01) | DRG 291 ==
LOC: 2ND 17:30
PROVIDERS: ADMIT Internal Medicine; ATTEND Hospitalist
DX: I13.0 Hypertensive heart and chronic kidney disease with heart failure and stage 1 through stage 4 chronic kidney disease, or unspecified chronic kidney disease (principal); I50.33 Acute on chronic diastolic (congestive) heart failure; R65.11 Systemic inflammatory response syndrome (SIRS) of non-infectious origin with acute organ dysfunction; J96.21 Acute and chronic respiratory failure with hypoxia; E87.21 Acute metabolic acidosis; J44.1 Chronic obstructive pulmonary disease with (acute) exacerbation; L97.919 Non-pressure chronic ulcer of unspecified part of right lower leg with unspecified severity; L97.929 Non-pressure chronic ulcer of unspecified part of left lower leg with unspecified severity; E87.1 Hypo-osmolality and hyponatremia; N18.30 Chronic kidney disease, stage 3 unspecified; E11.22 Type 2 diabetes mellitus with diabetic chronic kidney disease; E11.65 Type 2 diabetes mellitus with hyperglycemia; D63.1 Anemia in chronic kidney disease; I83.009 Varicose veins of unspecified lower extremity with ulcer of unspecified site; E78.2 Mixed hyperlipidemia; E66.01 Morbid (severe) obesity due to excess calories; E80.6 Other disorders of bilirubin metabolism; I25.10 Atherosclerotic heart disease of native coronary artery without angina pectoris; I25.2 Old myocardial infarction; F17.200 Nicotine dependence, unspecified, uncomplicated; R91.8 Other nonspecific abnormal finding of lung field; Z60.2 Problems related to living alone; Z79.4 Long term (current) use of insulin; Z95.5 Presence of coronary angioplasty implant and graft; Z99.81 Dependence on supplemental oxygen; Z79.82 Long term (current) use of aspirin; Z79.02 Long term (current) use of antithrombotics/antiplatelets; Z79.84 Long term (current) use of oral hypoglycemic drugs; Z79.899 Other long term (current) drug therapy; Z95.810 Presence of automatic (implantable) cardiac defibrillator; Z68.34 Body mass index [BMI] 34.0-34.9, adult
CPT/HCPCS: 36415; 71045; 71275; 80048; 80061; 80069; 80076; 81001; 82550; 82565; 82728; 82947; 83540; 83605; 83735; 83880; 84100; 84132; 84443; 84466; 84484; 84550; 85025; 85027; 93306; 93970; 94640; 94760; J1644; J1815; J1940; J2543; J2919; J7050; J7512; J7613; J7644; Q9967